=== PATIENT | male | born 1960 | race Caucasian/White ===

== ENCOUNTER 2018-09-23 02:42 | Inpatient (IN) | payer BC, SELFPAY ==
[2018-09-23] VITALS (19 sets, daily range): BP systolic 109–154; BP diastolic 70–94; PULSE 62–86; RESP 16–18; TEMP 36.4–36.6; O2SAT 93–98; BMI 38.8; BMI 37.3
--- NOTE | 2018-09-23 02:46 | ED.RN ---
CALLED FOR EKG PER RN REQUEST, PULLED OLD EKGS FOR
--- NOTE | 2018-09-23 02:59 | RAD_ITS ---
HISTORY: CPChest PainRAD - Chest EXAM:XR Chest 2 Views COMPARISON: 10/06/2014 FINDINGS: EKG leads in place. No significant change. Normal heart size. Prominent lung volumes. No vascular congestion, pleural effusion, or acute pulmonary infiltration. No pneumothorax. RAD/Chest PA and Lateral IMPRESSION: No acute cardiopulmonary disease. No significant interval change. at 0338 Reported and signed by: Hunter Haque MD Electronically Signed: Hunter Haque, at 3:37 EDT Tel , Service support ,
--- NOTE | 2018-09-23 02:59 | EKG12_ITS ---
Test Reason : CHEST PAIN Blood Pressure : / mmHG Vent. Rate : 085 BPM Atrial Rate : 085 BPM P-R Int : 186 ms QRS Dur : 084 ms QT Int : 376 ms P-R-T Axes : 032 062 066 degrees QTc Int : 447 ms Normal sinus rhythm Nonspecific T wave abnormality Abnormal ECG Confirmed by RAJNI LONDON, BOB ([id number]), writer editor STEVEN WORTHINGTON ([id number]) on 09/25/2018 1:41:38 PM Referred By: SELENE Confirmed By:BOB URBAN MD
[2018-09-23 03:08] LABS: Absolute Lymphocyte Count 3.38 X10^3/ul (0.83-4.51); Absolute Neutrophil Count 4.3 X10^3/uL (2.0-7.7); Basophil% 1.1 % (0-1); Eosinophil# 0.32 X10^3/uL; Eosinophils% 3.6 % (0-5); Hematocrit 48.2 % (40-54); Hemoglobin 16.6 g/dl (13.0-16.5); Lymphocyte # 3.38 X10^3/ul (4.0); Lymphocyte % 38.2 % (19-41); Mean Corp Hgb Conc 34.4 g/gl (32-36); Mean Corpuscular Hgb 30.5 pg (27.0-32.0); Mean Corpuscular Volume 88.6 fL (80-94); Mean Platelet Vol. 9.6 fl (6.2-12.0); Monocyte# 0.66 X10^3/uL; Monocyte% 7.5 % (0-10); Neutrophil # 4.33 X10^3/uL (2.7-7.7); POSITIVE COUNT NO; POSITIVE DIFFERENTIAL NO; POSITIVE MORPHOLOGY NO; Platelet Count 242 K/mm3 (150-450); RBC Distribution Width CV 13.9 % (11.6-14.6); RBC Distribution Width SD 45.5 fl (35.1-43.9); Red Blood Count 5.44 M/mm3 (4.6-6.2); White Blood Count 8.8 K/mm3 (4.4-11.0)
[2018-09-23 03:19] LABS: Anion Gap 6 (5-15); BUN 25 mg/dL (7-18); BUN/Creat Ratio 23.8 RATIO (10-20); Calcium,Total 9.7 mg/dL (8.5-10.1); Chloride 102 mmol/L (98-107); Creatinine, Serum 1.05 mg/dL (0.70-1.30); EST Glomerular Filtration Rate 77 mL/min (>60); Est Glom Filt Rate - Afr Amer 93 mL/min (>60); Estimated Creatinine Clearance 76.69 ml/min; Glucose 158 mg/dL (74-106); Potassium 3.7 mmol/L (3.5-5.1); Sodium Level 137 mmol/L (136-145)
--- NOTE | 2018-09-23 03:45 | ED.VISSUMM ---
- ER Visit Summary Date of Service: 09/23/18 Chief Complaint: Chest pain History of Present Illness: The patient is a 58 M who presents with chest pain. He has been having this intermittently over the last 2 to 3 days. Normally it is lasted a few minutes. However tonight it was more severe. He states it was 20 out of 10. He describes it as a tightness. It woke him from sleep about 2 hours before presentation. None of his previous episodes lasted this long. He does complain of associated shortness of breath. No nausea vomiting or diaphoresis. He was given aspirin by EMS however his pain was already beginning to improve. He reported to nursing that his pain was 2 out of 10 and to me reported 1-1/2 out of 10. He otherwise denies recent illness. He denies history of coronary disease and reports a normal cardiac catheterization about 10 years ago. However he is treated for diabetes, hypertension, hyperlipidemia, he is a smoker. Physical Examination: Afebrile vitals unremarkable Moist mucous membranes Heart regular rate and rhythm Lungs are clear Abdomen soft nontender nondistended Extremities nontender without edema 2+ radial pulses Alert Test Results: EKG shows normal sinus rhythm at a rate of 85 with nonspecific T wave changes. There is inferior and lateral T wave flattening. ST segments are isoelectric. Labs notable for troponin of 0.17. Chest x-ray shows no acute disease. Emergency Department Course and Treatment: Patient received aspirin by EMS prior to presentation. His pain had already significantly improved. On reevaluation he states he still has a little tightness but states he does not really have pain. I spoke to Dr. Chairez who requested anticoagulation, Nitropaste, Plavix. They will plan on cardiac catheterization today. Patient discussed with the hospitalist and admitted. Treatment Plan: [] Disposition: Admit Impression: Chest pain Indeterminate troponin This note was generated with [employer] dictation software. It may contain incorrect words, spelling, and punctuation that were not noted in review of the chart prior to signing ED Disposition - Plan for ED Patient: Referrals: Sandhya Priest [Primary Care Provider] -
--- NOTE | 2018-09-23 03:47 | PCM.HP.STD ---
Problem List (1) Chest pain Status: Acute Qualifiers: Chest pain type: unspecified Qualified Code(s): R07.9 - Chest pain, unspecified (2) Cardiac enzymes elevated Status: Acute (3) HTN (hypertension) Status: Chronic Qualifiers: Hypertension type: essential hypertension Qualified Code(s): I10 - Essential (primary) hypertension (4) HLD (hyperlipidemia) Status: Chronic Qualifiers: Hyperlipidemia type: unspecified Qualified Code(s): E78.5 - Hyperlipidemia, unspecified (5) Obesity (BMI 30-39.9) Status: Chronic (6) Diabetes mellitus, type II Status: Chronic Qualifiers: Diabetes mellitus senior living insulin use: unspecified terminal carman insulin use status Diabetes mellitus complication status: with unspecified complications Qualified Code(s): E11.8 - Type 2 diabetes mellitus with unspecified complications (7) History of supraventricular tachycardia Status: Chronic History of Present Illness Date of Admission: 09/23/18 Chief Complaint: Chest pain, dyspnea The patient is a 58 y/o M w/ PMHx: Tobacco use, Obesity, HTN, HLD, Diabetes mellitus type II, Hx SVT following w/ Dr. 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 Work-up in the ED included T 97.6, heart rate 86, BP 154/88, respiratory rate 17, 96% on room air, CBC not marked appearing, BMP with BUN/creatinine 25/1.05, glucose 158, troponin 0.171, EKG with sinus rhythm with nonspecific T wave changes with inferior and lateral T wave flattening, chest x-ray with no acute cardiopulmonary findings. Past Medical History Past Medical History (Chronic Problems): Chronic Problems HTN (hypertension) (Chronic) HLD (hyperlipidemia) (Chronic) Obesity (BMI 30-39.9) (Chronic) Diabetes mellitus, type II (Chronic) History of supraventricular tachycardia (Chronic) Allergies codeine Adverse Reaction (Verified 09/23/18 02:44) Other Home Medications: Ambulatory Orders Medication Instructions Recorded Aspirin 325 mg PO DAILY@0800 10/06/14 Metformin(XR) [Glucophage Xr] 500 mg PO DAILY 09/23/18 Pravastatin Sodium 1 tab PO DAILY 09/23/18 Surgical History: - - Appendectomy, bilateral thumb surgery. Psychiatric History: No pertinent psych hx Lives: Spouse/ Significant Other Smoking Status: Current every day smoker - Currently smoking approximately 1/2 pack/day cigarette tobacco usage. Tobacco Use: Cigarettes Alcohol: Occasional Drugs: None - *Family History Maternal History Items: - - Patient notes a maternal family history of heart disease, status post pacemaker status. Paternal History Items: - - Patient notes a paternal family history of cancer, notes stomach and liver both. Review of Systems Constitutional: Reports: Malaise, Weakness, Fatigue. Denies: Chills, Fever, Weight Change HEENT: Denies: Head Aches, Sinus Congestion, Sinus Drainage Cardiovascular: Reports: Chest Pain, Chest Tightness. Denies: Palpitations Respiratory: Reports: Shortness of Breath, Shortness of breath at rest, Shortness of breath upon exertion. Denies: Cough, Sputum production Gastrointestinal: Denies: Abdominal Pain, Nausea, Vomiting Genitourinary: Denies: Dysuria Musculoskeletal: Reports: Joint Pain. Denies: Joint Tenderness Skin: Denies: Rash, Wounds Neurological: Denies: Numbness, Tingling, Focal weakness Psychiatric: Denies: Anxiety, Depression, Homicidal Ideations, Suicidal Ideations Hematologic/ Lymphatic: Denies: Easy Bruising, Easy Bleeding VTE Information - Inpt Only VTE Present on Admission: No VTE Mechan Device Prophylaxis: SCD's VTE Pharm Prophylaxis ordered?: Yes Patient Problems: Active and Suspected Problems Chest pain (Acute) Cardiac enzymes elevated (Acute) Subjective: Seated upright in ED bed, fatigued appearance, notes chest discomfort has improved, currently less than 1 out of 10. Objective: Physical Examination: General: awake, alert, oriented x 3 and cooperative, seated upright in the ED bed in no apparent distress, notes chest discomfort has improved, currently less than 1 out of 10. Skin: normal color, turgor, no icterus, cyanosis. HEENT: AT/NC, EOMI, PERRLA, mildly dry MM, no carotid bruits or JVD noted. Lungs: CTA bilaterally, moderate effort, moderate decrease BL bases, no rales, ronchi or wheezing. Heart: Regular rate and rhythm; no gallop, rub audible. Abdomen: soft, obese, NTTP, ND, normal BS, no HSM. Extremities: no cyanosis, clubbing, or edema. Neurological: patient awake, alert, oriented x 3; cognitive function intact; pupils equally reactive to light and accomodation; cranial nerves II-XII grossly normal, moving all 4 extremities, no focal deficits, strength moderately globally decreased secondary to acute presentation. Psychiatric: affect appears fatigued, no acute evidence of depressive or anxiety feelings. - Physical Exam Vital Signs Temp Pulse Resp BP Pulse Ox 97.6 F L 76 16 127/84 H 98 09/23/18 02:44 09/23/18 03:43 09/23/18 03:43 09/23/18 03:43 09/23/18 03:43 Oxygen Flow Rate (L/min) 2 Oxygen Delivery Method Nasal Cannula Weight: 263 lb 3.711 oz Body Mass Index (BMI) 38.8 Laboratory Tests Past 24 Hrs 09/23/18 09/23/18 02:47 02:47 WBC 8.8 RBC 5.44 Hgb 16.6 H Hct 48.2 MCV 88.6 MCH 30.5 MCHC 34.4 RDW 13.9 RDW Differential 45.5 H Plt Count 242 MPV 9.6 Immature Gran % (Auto) 0.600 Neut % (Auto) 49.0 Lymph % (Auto) 38.2 Blaine % (Auto) 7.5 Eos % (Auto) 3.6 Baso % (Auto) 1.1 H Absolute Neuts (auto) 4.3 Absolute Lymphs (auto) 3.38 Total Counted Not Reportable Sodium 137 Potassium 3.7 Chloride 102 Carbon Dioxide 29.0 Anion Gap 6 BUN 25 H Creatinine 1.05 Estim Creat Clear Calc 76.69 Est GFR (MDRD) Af Amer 93 Est GFR (MDRD) Non-Af 77 BUN/Creatinine Ratio 23.8 H Glucose 158 H Calcium 9.7 Troponin I 0.171 H Assessment/Plan All Active Problems Chest pain (Acute) Cardiac enzymes elevated (Acute) The patient is a 58 y/o M w/ PMHx: Tobacco use, Obesity, HTN, HLD, Diabetes mellitus type II, Hx SVT following w/ Dr. 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 (1) Chest Pain w/ indeterminate cardiac enzyme, suspect early NSTEMI: Work-up in the ED included T 97.6, heart rate 86, BP 154/88, respiratory rate 17, 96% on room air, CBC not marked appearing, BMP with BUN/creatinine 25/1.05, glucose 158, troponin 0 0.171, EKG with sinus rhythm with nonspecific T wave changes with inferior and lateral T wave flattening, chest x-ray with no acute cardiopulmonary findings. Will admit to PCU, maintain on a monitored bed, continue serial cardiac enzymes and EKGs. Obtain magnesium level upon admission. Start therapeutic lovenox. Plavix loaded in the ED. Continue medical management w/ asa, add BB, continue Cardiology requested nitropaste, change to high dose statin w/ AM FLP. Maintain NPO after midnight for planned AM cardiac catheterization. ASA, NG, morphine. ECHO requested. (2) Hypertension: We will add beta-luci therapy as noted, PRN hydralazine. (3) Hyperlipidemia: Change to high dose statin regimen. AM FLP. (4) Obesity: Weight loss and lifestyle changes encouraged, nutrition consultation for education and teaching. (5) Diabetes mellitus type II: Hold oral home regimen, n.p.o. status pending cardiology evaluation, accu checks w/ ISS, nutrition consultation for education and teaching, HgbA1c pending. (6) Hx SVT: From prior records had been evaluated prior per Dr. Lucas, as noted adding beta-luci therapy. (7) Tobacco Abuse: Encouraged cessation, inpatient consultation per RT, NR declined. (8) ORTIZ: CPAP q HS. (9) DVT prophylaxis: SCDs, therapeutic Lovenox. Code Visit Inpatient E&M: 97213 Init Hosp L3
[2018-09-23] MEDS: Nitroglycerin Oint 1 INCH PACKET TRANSDERM. (04:16)
[2018-09-23] MEDS: Clopidogrel Bisulfate 300 MG Tablet PO (04:16)
[2018-09-23] MEDS: Enoxaparin 120 MG/0.8 ML Syringe SC ×2 (04:17→21:12)
[2018-09-23] MEDS: 0.9% Normal Saline 1,000 ML 125 ML IV ×3 (04:54→17:27)
[2018-09-23 05:13] LABS: International Normalized Ratio 1.1; Prothrombin Time (Protime)PT. 13.9 SECONDS (11.7-14.9)
[2018-09-23 05:14] LABS: Partial Thromboplast Time 34.8 Seconds (24.1-36.2)
[2018-09-23 05:26] LABS: AST(SGOT) 19 U/L (15-37); Alanine Aminotransfer ALT/SGPT 29 U/L (16-61); Albumin, Serum 3.2 g/dL (3.2-5.0); Alkaline Phosphatase 54 U/L (45-117); Bilirubin, Direct < 0.05 mg/dL (0.00-0.30); Cholesterol 152 mg/dL (200); Globulin 3.2 g/dL (2.2-4.2); High Density Lipoprotein 28 mg/dL; Protein, Total 6.4 g/dL (6.4-8.2); Triglycerides 390 mg/dL; Very Low Density Lipoprotein 78 mg/dL (5-40)
[2018-09-23] MEDS: Carvedilol 6.25 MG Tablet PO ×2 (05:34→21:12)
[2018-09-23 05:39] LABS: Bacteria 0 SEEN /hpf (None Seen); Mucous, Urine 0 SEEN /hpf (<or=2+); Red Blood Cells-Urine 0 SEEN /hpf (0-5); Squamous Epithelial Cells - UA 0 SEEN /hpf (0-5); White Blood Cells 0 SEEN /hpf (0-5)
--- NOTE | 2018-09-23 05:55 | ECHOCS_ITS ---
Reason For Study: CAD/ASHD Procedure This was a 2D Doppler, Color Flow transthoracic echocardiogram. The study was technically difficult. Due to obesity and diminished parasternal views. Exam performed portable in patient room. Left Ventricle Normal size and thickness. The estimated ejection fraction is 65 %. Stage 1 diastolic dysfunction. No regional wall motion abnormalities noted. Right Ventricle Mildly dilated right ventricle. Normal systolic function. Atria Normal left atrium. Normal right atrium. Normal atrial septum. Mitral Valve The mitral valve is structurally normal. No prolapse or stenosis seen. Tricuspid Valve Normal tricuspid valve. Trivial tricuspid valve insufficiency. Right ventricular systolic pressure estimated to be 31 mmHg. Aortic Valve Normal aortic valve. Trisinus/trileaflet aortic valve. Pulmonic Valve The pulmonic valve is not well visualized. Great Vessels Normal aortic root. Normal arch. Normal inferior vena cava. Inferior vena cava collapse with sniff. Pericardium/Pleural No pericardial effusion. Medication Diluted definity 3.0ml given slow IV push to enhance endocardial definition. MMode/2D Measurements & Calculations RVDd: 4.1 cm Ao root diam: 3.9 cm LAV(MOD-bp): 57.1 ml LAV(MOD-bp) Indexed: 25.1 ml/m2 LAV(MOD-sp2): 55.7 ml LAV(MOD-sp4): 54.0 ml LA dimension(2D): 4.4 cm LA A4 area: 18.7 cm2 RA A4 area: 17.7 cm2 Doppler Measurements & Calculations MV E max hardik: 73.5 cm/sec Lat Peak E' Hardik: 8.5 cm/sec Med Peak E' Hardik: 5.5 cm/sec MV A max hardik: 85.5 cm/sec E/E' lat: 8.7 E/E' med: 13.4 MV E/A: 0.86 Ao V2 max: 187.3 cm/sec LV V1 max: 157.2 cm/sec PA V2 max: 100.9 cm/sec Ao max P.0 mmHg LV V1 max P.9 mmHg Ao V2 mean: 148.0 cm/sec LV V1 mean P.6 mmHg Ao mean P.2 mmHg LV V1 mean: 123.9 cm/sec Ao V2 VTI: 41.3 cm LV V1 VTI: 33.5 cm TR max hardik: 253.1 cm/sec TR max P.6 mmHg Interpretation Summary The estimated ejection fraction is 65 %. Stage 1 diastolic dysfunction. Mildly dilated right ventricle. Trivial tricuspid valve insufficiency. Right ventricular systolic pressure estimated to be 31 mmHg. Compared to echo report 10/15/2014, no appreciable changes noted. The study was technically difficult. Contrast injection was performed. Ordering Physician: Gianna Wisdom Referring Physician: Sandhya Priest Performed By: Isabel Diaz RDCS, RVT
--- NOTE | 2018-09-23 05:55 | EKG12_ITS ---
Test Reason : CP / AM EKG Blood Pressure : / mmHG Vent. Rate : 075 BPM Atrial Rate : 075 BPM P-R Int : 180 ms QRS Dur : 084 ms QT Int : 390 ms P-R-T Axes : 017 052 055 degrees QTc Int : 435 ms Normal sinus rhythm Normal ECG Confirmed by RAJNI LONDON, BOB ([id number]), research editor STEVEN WORTHINGTON ([id number]) on 09/25/2018 1:55:20 PM Referred By: MITRA Confirmed By:BOB URBAN MD
[2018-09-23 06:04] LABS: Color, Urine Yellow (Yellow); Glucose, Dipstick Normal (Normal); Ketone-Dipstick Negative (Negative); Leukocyte Esterase-Dipstick 25 /ul (Negative); Nitrite-Dipstick Negative (Negative); Occult Blood-Urine Negative /ul (Negative); Protein-Dipstick 15 mg/dl (Negative); Specific Gravity, Urine 1.025 (1.002-1.030); Urine Bilirubin Dipstick Negative (Negative); Urine Clarity Clear (Clear); Urine Urobilinogen Normal (Normal)
[2018-09-23 07:11] LABS: Bedside Glucose 148 mg/dL (70-110)
[2018-09-23 08:18] LABS: Hemoglobin A1c 6.8 % (4.2-6.3)
--- NOTE | 2018-09-23 08:46 | CASEMGMT ---
According to the [facility] website, the following are in-network tertiary facilities: [facility], [facility], [facility], [facility], [facility], [facility], [facility], [facility], [facility], and . Jeanie CEDILLO CM
[2018-09-23] MEDS: Acetaminophen 325 MG Tablet 650 MG PO ×2 (10:15→16:20)
--- NOTE | 2018-09-23 10:49 | PCM.CONS.C ---
Problem List (1) Chest pain Status: Acute Qualifiers: Chest pain type: unspecified Qualified Code(s): R07.9 - Chest pain, unspecified (2) Cardiac enzymes elevated Status: Acute (3) HTN (hypertension) Status: Chronic Qualifiers: Hypertension type: essential hypertension Qualified Code(s): I10 - Essential (primary) hypertension (4) HLD (hyperlipidemia) Status: Chronic Qualifiers: Hyperlipidemia type: unspecified Qualified Code(s): E78.5 - Hyperlipidemia, unspecified (5) Diabetes mellitus, type II Status: Chronic Qualifiers: Diabetes mellitus mcc insulin use: unspecified manager intermediate insulin use status Diabetes mellitus complication status: with unspecified complications Qualified Code(s): E11.8 - Type 2 diabetes mellitus with unspecified complications Reason for Consult Date of Consultation: 09/23/18 Reason for Consultation: Hypertension, hypercholesterolemia, diabetes, current smoker, obstructive sleep apnea, non-STEMI, unstable angina History of Present Illness: The patient is a 58 year old M with a history of hypertension, hypercholesterolemia, diabetes type 2 for the past year, current smoker of a half a pack of cigarettes per day for approximately 30 years, apparently history of atrial fibrillation in the distant past although is on no anticoagulation, structured sleep apnea on current CPAP therapy. He reports he had a heart cath greater than 10 years ago at [facility] which was reportedly normal per the patient. Patient was well up until the last week or so when he began developing intermittent chest heaviness which he rated a 2-3 out of 10 while he was exerting himself. Last evening after going to sleep, he developed severe 10 out of 10 chest tightness which woke him up from a sleeping position around 1 AM. This was similar to but more intense than his symptoms that he has been experiencing over the last 1 to 2 weeks. He had no nausea or vomiting but was diaphoretic and had shortness of breath. The patient was emergently transferred to [facility] by [facility] where an EKG showed normal sinus rhythm with subtle inferior ST segment flattening. The patient was treated with baby aspirin, sublingual nitroglycerin, IV heparin, and loaded with Plavix. His initial troponin was 0.17, and increased to 3.86. He is currently resting comfortably. Telemetry is been negative thus far according to this writing. [] Past Medical History Allergies/Adverse Reactions: Allergies codeine Adverse Reaction (Verified 09/23/18 02:44) Other Home Medications: Ambulatory Orders Medication Instructions Recorded Aspirin 325 mg PO DAILY@0800 10/06/14 Metformin(XR) [Glucophage Xr] 500 mg PO DAILY 09/23/18 Pravastatin Sodium 1 tab PO DAILY 09/23/18 Past Medical History (Chronic Problems): Chronic Problems HTN (hypertension) (Chronic) HLD (hyperlipidemia) (Chronic) Obesity (BMI 30-39.9) (Chronic) Diabetes mellitus, type II (Chronic) History of supraventricular tachycardia (Chronic) Surgical History: - - Appendectomy, bilateral thumb surgery. Psychiatric History: No pertinent psych hx - *Family History Maternal History Items: - - Patient notes a maternal family history of heart disease, status post pacemaker status. Paternal History Items: - - Patient notes a paternal family history of cancer, notes stomach and liver both. Lives: Spouse/ Significant Other Smoking Status: Current every day smoker Tobacco Use: Cigarettes Alcohol: Occasional Drugs: None Review of Systems - Review of Systems General: Denies: Fever, Night Sweats, Fatigue Cardiovascular: Reports: Chest Discomfort, Chest Discomfort at Rest, Chest Discomfort with Exertion, Chest Heaviness, Shortness of Breath, Shortness of Breath at Rest. Denies: Orthopnea, PND, Peripheral Edema, Palpitations, Lightheadedness, Dizziness, Near Syncope, Syncope Respiratory: Denies: Cough, Sputum Production, Hemoptysis Gastrointestinal: Denies: Hematemesis, Hematochezia, Melena Genitourinary: Denies: Dysuria, Hematuria Skin: Denies: Rash Subjectve: Patient resting comfortably, no acute distress. Objective: Vital Signs Temp Pulse Resp BP Pulse Ox 97.7 F L 77 18 124/73 H 94 09/23/18 10:40 09/23/18 10:40 09/23/18 10:40 09/23/18 10:40 09/23/18 10:40 Oxygen Flow Rate (L/min) 2 Oxygen Delivery Method Room Air Weight: 252 lb 10.396 oz Body Mass Index (BMI) 37.3 Intake and Output for Last 24 Hours 09/21/18 09/22/18 09/23/18 23:59 23:59 23:59 Intake Total 50 / 50 Balance 50 / 50 General: Awake, Alert, Oriented x 3 HEENT: PERRL, EOMI, Sclera Non Icteric Neck: Supple, Good ROM, No Lymph Node Enlargement Lungs: Clear to auscultation Cardiovascular: Regular Rhythm, Normal S1, Normal S2, No Murmurs, No Rubs, No Gallops Vascular: No Carotid Bruits, Normal Femoral Pulses, Normal Radial Pulses, Normal Dorsalis Pedal Pulse, Normal Posterior Tibial Pulses Abdomen: Bowel Sounds Present, Soft, Non Tender, No HSM, No Organomegaly Extremities: No Cyanosis, No Clubbing, No edema Neurological: No Focal Motor or Sensory Deficit 09/23/18 02:47: WBC 8.8, RBC 5.44, Hgb 16.6 H, Hct 48.2, MCV 88.6, MCH 30.5, MCHC 34.4, RDW 13.9, RDW Differential 45.5 H, Plt Count 242, MPV 9.6, Immature Gran % (Auto) 0.600, Neut % (Auto) 49.0, Lymph % (Auto) 38.2, [place] % (Auto) 7.5, Eos % (Auto) 3.6, Baso % (Auto) 1.1 H, Absolute Neuts (auto) 4.3, Total Counted Not Reportable 09/23/18 02:47: Sodium 137, Potassium 3.7, Chloride 102, Carbon Dioxide 29.0, Anion Gap 6, BUN 25 H, Creatinine 1.05, Est GFR (MDRD) Af Amer 93, Est GFR (MDRD) Non-Af 77, BUN/Creatinine Ratio 23.8 H, Glucose 158 H, Calcium 9.7, Troponin I 0.171 H 09/23/18 04:55: PT 13.9, INR 1.1, APTT 34.8 09/23/18 04:55: Sodium Cancelled, Potassium Cancelled, Chloride Cancelled, Carbon Dioxide Cancelled, Anion Gap Cancelled, BUN Cancelled, Creatinine Cancelled, Est GFR (MDRD) Af Amer Cancelled, Est GFR (MDRD) Non-Af Cancelled, BUN/Creatinine Ratio Cancelled, Glucose Cancelled, Calcium Cancelled, Magnesium 2.0, Total Bilirubin 0.10 L, Direct Bilirubin < 0.05, Triglycerides 390 H, Cholesterol 152, LDL Cholesterol 46, VLDL Cholesterol 78 H, HDL Cholesterol 28 L 09/23/18 04:55: Hemoglobin A1c 6.8 H 05/13/19 04:55: Troponin I 0.623 H* 09/23/18 05:22: Urine Color Yellow, Urine Clarity Clear, Urine pH 6.0, Ur Specific [place] 1.025, Urine Protein 15 H, Urine Glucose (UA) Normal, Urine Ketones Negative, Urine Occult Blood Negative, Urine Nitrite Negative, Urine Bilirubin Negative, Urine Urobilinogen Normal, Ur Leukocyte Esterase 25 H, Urine RBC 0 SEEN, Urine WBC 0 SEEN 09/23/18 08:20: Troponin I 3.860 H* Rhythm: EKG: As above ECHO: Pending Stress Test: Cardiac Cath: Pending PCI: CT Surgery: Holter monitor: EPS: PPM: CXR: Chest CT Scan: Assessment/Plan 1. Chest pain: The patient has had about a 1 to 2-week history of progressively worsening substernal chest pain, culminating in severe chest pain that woke him up from a sound sleep at 1 AM despite using CPAP therapy religiously. He had a very minimal troponin release that is max so far at 3.8. His EKG showed normal sinus rhythm with very subtle inferior ST segment flattening, no appreciable exchange clerk previous EKGs. He is currently chest pain-free. I recommend he continue baby aspirin, Plavix 75 mg a day, nitroglycerin paste 1 inch every 6 hours, and anticoagulation with either Lovenox or IV heparin. I recommended the patient undergo a diagnostic left heart catheterization tomorrow morning, 09/24/2018, or sooner if he develops unstable symptoms. I do not believe requires to be 3 inhibitors at this time. 2. Hyperlipidemia: Recommend obtaining a fasting lipid profile. His LDL should be less than 70 given his diabetes and non-STEMI. 3. 2D echo with Doppler is pending. 4. Obstructive sleep apnea: Continue CPAP therapy while he is in-house to avoid hypoxemic episodes during his sleep. 5. Thank you very much for the opportunity to put dissipate in the cardiac care of your patient. Consultation time took place between 8 AM and 8:30 AM. Code Visit Inpatient E&M: 36088 Init Hosp L2
--- NOTE | 2018-09-23 10:54 | CON.PCM_ITS ---
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 Diabetes mellitus complication status: with unspecified complications Qualified Code(s): E11.8 - Type 2 diabetes mellitus with unspecified complications Reason for Consult Date of Consultation: 09/23/18 Reason for Consultation: Hypertension, hypercholesterolemia, diabetes, current smoker, obstructive sleep apnea, non-STEMI, unstable angina History of Present Illness: The patient is a 58 year old M with a history of hypertension, hypercholesterolemia, diabetes type 2 for the past year, current smoker of a half a pack of cigarettes per day for approximately 30 years, apparently history of atrial fibrillation in the distant past although is on no anticoagulation, structured sleep apnea on current CPAP therapy. He reports he had a heart cath greater than 10 years ago at [facility] which was reportedly normal per the patient. Patient was well up until the last week or so when he began developing intermittent chest heaviness which he rated a 2-3 out of 10 while he was exerting himself. Last evening after going to sleep, he developed severe 10 out of 10 chest tightness which woke him up from a sleeping position around 1 AM. This was similar to but more intense than his symptoms that he has been experiencing over the last 1 to 2 weeks. He had no nausea or vomiting but was diaphoretic and had shortness of breath. The patient was emergently transferred to [facility] by [facility] where an EKG showed normal sinus rhythm with subtle inferior ST segment flattening. The patient was treated with baby aspirin, sublingual nitroglycerin, IV heparin, and loaded with Plavix. His initial troponin was 0.17, and increased to 3.86. He is currently resting comfortably. Telemetry is been negative thus far according to this writing. [] Past Medical History Allergies/Adverse Reactions: Allergies codeine Adverse Reaction (Verified 09/23/18 02:44) Other Home Medications: Ambulatory Orders Medication Instructions Recorded Aspirin 325 mg PO DAILY@0800 10/06/14 Metformin(XR) [Glucophage Xr] 500 mg PO DAILY 09/23/18 Pravastatin Sodium 1 tab PO DAILY 09/23/18 Past Medical History (Chronic Problems): Chronic Problems HTN (hypertension) (Chronic) HLD (hyperlipidemia) (Chronic) Obesity (BMI 30-39.9) (Chronic) Diabetes mellitus, type II (Chronic) History of supraventricular tachycardia (Chronic) Surgical History: - - Appendectomy, bilateral thumb surgery. Psychiatric History: No pertinent psych hx - *Family History Maternal History Items: - - Patient notes a maternal family history of heart disease, status post pacemaker status. Paternal History Items: - - Patient notes a paternal family history of cancer, notes stomach and liver both. Lives: Spouse/ Significant Other Smoking Status: Current every day smoker Tobacco Use: Cigarettes Alcohol: Occasional Drugs: None Review of Systems - Review of Systems General: Denies: Fever, Night Sweats, Fatigue Cardiovascular: Reports: Chest Discomfort, Chest Discomfort at Rest, Chest Discomfort with Exertion, Chest Heaviness, Shortness of Breath, Shortness of Breath at Rest. Denies: Orthopnea, PND, Peripheral Edema, Palpitations, Lightheadedness, Dizziness, Near Syncope, Syncope Respiratory: Denies: Cough, Sputum Production, Hemoptysis Gastrointestinal: Denies: Hematemesis, Hematochezia, Melena Genitourinary: Denies: Dysuria, Hematuria Skin: Denies: Rash Subjectve: Patient resting comfortably, no acute distress. Objective: Vital Signs Temp Pulse Resp BP Pulse Ox 97.7 F L 77 18 124/73 H 94 09/23/18 10:40 09/23/18 10:40 09/23/18 10:40 09/23/18 10:40 09/23/18 10:40 Oxygen Flow Rate (L/min) 2 Oxygen Delivery Method Room Air Weight: 252 lb 10.396 oz Body Mass Index (BMI) 37.3 Intake and Output for Last 24 Hours 09/21/18 09/22/18 09/23/18 23:59 23:59 23:59 Intake Total 50 / 50 Balance 50 / 50 General: Awake, Alert, Oriented x 3 HEENT: PERRL, EOMI, Sclera Non Icteric Neck: Supple, Good ROM, No Lymph Node Enlargement Lungs: Clear to auscultation Cardiovascular: Regular Rhythm, Normal S1, Normal S2, No Murmurs, No Rubs, No Gallops Vascular: No Carotid Bruits, Normal Femoral Pulses, Normal Radial Pulses, Normal Dorsalis Pedal Pulse, Normal Posterior Tibial Pulses Abdomen: Bowel Sounds Present, Soft, Non Tender, No HSM, No Organomegaly Extremities: No Cyanosis, No Clubbing, No edema Neurological: No Focal Motor or Sensory Deficit 09/23/18 02:47: WBC 8.8, RBC 5.44, Hgb 16.6 H, Hct 48.2, MCV 88.6, MCH 30.5, MCH C 34.4, RDW 13.9, RDW Differential 45.5 H, Plt Count 242, MPV 9.6, Immature Gran % (Auto) 0.600, Neut % (Auto) 49.0, Lymph % (Auto) 38.2, Caswell % (Auto) 7.5, Eos % (Auto) 3.6, Baso % (Auto) 1.1 H, Absolute Neuts (auto) 4.3, Total Counted Not Reportable 09/23/18 02:47: Sodium 137, Potassium 3.7, Chloride 102, Carbon Dioxide 29.0, Anion Gap 6, BUN 25 H, Creatinine 1.05, Est GFR (MDRD) Af Amer 93, Est GFR (MDRD) Non-Af 77, BUN/Creatinine Ratio 23.8 H, Glucose 158 H, Calcium 9.7, Troponin I 0.171 H 09/23/18 04:55: PT 13.9, INR 1.1, APTT 34.8 09/23/18 04:55: Sodium Cancelled, Potassium Cancelled, Chloride Cancelled, Carbon Dioxide Cancelled, Anion Gap Cancelled, BUN Cancelled, Creatinine Cancelled, Est GFR (MDRD) Af Amer Cancelled, Est GFR (MDRD) Non-Af Cancelled, BUN/Creatinine Ratio Cancelled, Glucose Cancelled, Calcium Cancelled, Magnesium 2.0, Total Bilirubin 0.10 L, Direct Bilirubin < 0.05, Triglycerides 390 H, Cholesterol 152, LDL Cholesterol 46, VLDL Cholesterol 78 H, HDL Cholesterol 28 L 09/23/18 04:55: Hemoglobin A1c 6.8 H 05/13/19 04:55: Troponin I 0.623 H* 09/23/18 05:22: Urine Color Yellow, Urine Clarity Clear, Urine pH 6.0, Ur Specific Cash 1.025, Urine Protein 15 H, Urine Glucose (UA) Normal, Urine Ketones Negative, Urine Occult Blood Negative, Urine Nitrite Negative, Urine Bilirubin Negative, Urine Urobilinogen Normal, Ur Leukocyte Esterase 25 H, Urine RBC 0 SEEN, Urine WBC 0 SEEN 09/23/18 08:20: Troponin I 3.860 H* Rhythm: EKG: As above ECHO: Pending Stress Test: Cardiac Cath: Pending PCI: CT Surgery: Holter monitor: EPS: PPM: CXR: Chest CT Scan: Assessment/Plan 1. Chest pain: The patient has had about a 1 to 2-week history of progressively worsening substernal chest pain, culminating in severe chest pain that woke him up from a sound sleep at 1 AM despite using CPAP therapy religiously. He had a very minimal troponin release that is max so far at 3.8. His EKG showed normal sinus rhythm with very subtle inferior ST segment flattening, no appreciable changer fixer previous EKGs. He is currently chest pain-free. I recommend he continue baby aspirin, Plavix 75 mg a day, nitroglycerin paste 1 inch every 6 hours, and anticoagulation with either Lovenox or IV heparin. I recommended the patient undergo a diagnostic left heart catheterization tomorrow morning, 09/24/2018, or sooner if he develops unstable symptoms. I do not believe requires to be 3 inhibitors at this time. 2. Hyperlipidemia: Recommend obtaining a fasting lipid profile. His LDL should be less than 70 given his diabetes and non-STEMI. 3. 2D echo with Doppler is pending. 4. Obstructive sleep apnea: Continue CPAP therapy while he is in-house to avoid hypoxemic episodes during his sleep. 5. Thank you very much for the opportunity to put dissipate in the cardiac care of your patient. Consultation time took place between 8 AM and 8:30 AM. Code Visit Inpatient E&M: 50098 Init Hosp L2
--- NOTE | 2018-09-23 11:09 | CASEMGMT ---
NGUYEN MOORE assessment: Face to Face with patient for initial transition planning/care coordination assessment. NGUYEN MOORE introduced self and role at [facility], pt voices understanding and consents to assessment at this time. Pt is sitting up in bed in no distress at this time. Pt is A/Ox4 at this time and answers all questions appropriately at this time. Care providers, pharmacy, and demographics verified at this time. PCP: Cem Specialists: Shayy cardio Preferred [facility]acy: [facility] Insurance: [employer] Prescription Benefit: [employer] Living Will/HPOA: Pt states does not have LW/HPOA but is interested in info at this time. Sandra SW aware, voices understanding and provided AD papers to pt. LNOK: Steph Cantrell, ; Aleksandar Dorsey, son Living Arrangements: Pt states lives with in mobile home with ramp into back of home and states no concerns at home at this time. Pt states is independent with ADL's. Transportation: Pt states drives self and states no transportation concerns at this time. DME/HHC: Pt states has a cpap with 2 liters home oxygen bleed in thru [facility]. Pt states no need for any further DME at this time. Pt states no hx of HHC or SNF in the past. Pt states no concerns with going home at time of discharge. 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 Pt states smokes about 1/2-3/4pack/day and drinks ETOH 2-3times daily. Pt states no further concerns/needs at this time. CM to follow for any further discharge planning/needs. Advised pt to ask for CM if any further questions/concerns/needs arise, voices understanding. Pt Goal: Home Plan: [place] NGUYEN MOORE
[2018-09-23] MEDS: Nitroglycerin Oint 1 INCH PACKET 0.5 INCH TRANSDERM. ×3 (11:43→23:58)
[2018-09-23 12:01] LABS: Bedside Glucose 147 mg/dL (70-110)
--- NOTE | 2018-09-23 15:00 | CASEMGMT ---
SW gave patient and his copies of Healthcare POA and Healthcare LW per their request. SW also gave them the Social Service brochure letting them know they can make an appt and a SW would complete documents with them. They thanked SW and did not need an explanation of documents. Qiana HOSKINS MSW
[2018-09-23 16:55] LABS: Bedside Glucose 103 mg/dL (70-110)
--- NOTE | 2018-09-23 18:10 | PCM.HOSP.N ---
Hospitalist Note Patient was seen and examined briefly today, he has very mild chest pain, I talked with cardiology about his care, cardiology states that they will perform a cardiac catheterization tomorrow rather than today. Patient's peak troponin today was 3.86. It appears that the patient's definitely had a NSTEMI. For now, we will continue his current medical care and plan for cardiac catheterization tomorrow.
[2018-09-23] MEDS: Atorvastatin Calcium 80 MG Tablet PO (21:12)
[2018-09-23 22:10] LABS: Bedside Glucose 99 mg/dL (70-110)
[2018-09-24] VITALS (28 sets, daily range): BP systolic 99–152; BP diastolic 50–102; PULSE 59–85; RESP 12–23; TEMP 36.3–36.7; O2SAT 93–98
[2018-09-24] MEDS: 0.9% Normal Saline 1,000 ML 125 ML IV (00:06)
--- NOTE | 2018-09-24 05:12 | CPS ---
pt didn't want to wear our cpap or bring his in from home.
[2018-09-24 05:31] LABS: Absolute Lymphocyte Count 2.91 X10^3/ul (0.83-4.51); Absolute Neutrophil Count 4.2 X10^3/uL (2.0-7.7); Basophil# 0.09 X10^3/uL; Basophil% 1.2 % (0-1); Eosinophil# 0.23 X10^3/uL; Eosinophils% 2.9 % (0-5); Hematocrit 44.5 % (40-54); Hemoglobin 14.8 g/dl (13.0-16.5); Lymphocyte # 2.91 X10^3/ul (4.0); Lymphocyte % 37.2 % (19-41); Mean Corp Hgb Conc 33.3 g/gl (32-36); Mean Corpuscular Hgb 30.6 pg (27.0-32.0); Mean Corpuscular Volume 92.1 fL (80-94); Mean Platelet Vol. 9.5 fl (6.2-12.0); Monocyte# 0.41 X10^3/uL; Monocyte% 5.2 % (0-10); Neutrophil # 4.15 X10^3/uL (2.7-7.7); Neutrophil % 53.1 % (47-70); Platelet Count 215 K/mm3 (150-450); RBC Distribution Width SD 46.8 fl (35.1-43.9); Red Blood Count 4.83 M/mm3 (4.6-6.2); White Blood Count 7.8 K/mm3 (4.4-11.0)
[2018-09-24] MEDS: Aspirin 325 MG Tablet PO (05:36)
[2018-09-24] MEDS: Carvedilol 6.25 MG Tablet PO ×2 (05:36→21:46)
[2018-09-24] MEDS: Nitroglycerin Oint 1 INCH PACKET 0.5 INCH TRANSDERM. (05:36)
[2018-09-24 05:37] LABS: POSITIVE COUNT NO; POSITIVE DIFFERENTIAL NO; POSITIVE MORPHOLOGY NO
[2018-09-24 05:38] LABS: International Normalized Ratio 1.1; Prothrombin Time (Protime)PT. 13.8 SECONDS (11.7-14.9)
[2018-09-24 05:45] LABS: Anion Gap 4 (5-15); BUN 17 mg/dL (7-18); BUN/Creat Ratio 18.6 RATIO (10-20); Calcium,Total 8.3 mg/dL (8.5-10.1); Chloride 109 mmol/L (98-107); Creatinine, Serum 0.92 mg/dL (0.70-1.30); EST Glomerular Filtration Rate 90 mL/min (>60); Est Glom Filt Rate - Afr Amer 109 mL/min (>60); Estimated Creatinine Clearance 87.52 ml/min; Glucose 115 mg/dL (74-106); Potassium 4.2 mmol/L (3.5-5.1); Sodium Level 142 mmol/L (136-145)
--- NOTE | 2018-09-24 05:55 | EKG12_ITS ---
Test Reason : AM EKG Blood Pressure : / mmHG Vent. Rate : 069 BPM Atrial Rate : 069 BPM P-R Int : 210 ms QRS Dur : 082 ms QT Int : 414 ms P-R-T Axes : 030 051 071 degrees QTc Int : 443 ms Sinus rhythm with 1st degree A-V block Nonspecific T wave abnormality Abnormal ECG Confirmed by RAJNI LONDON, BOB ([id number]), editorial writer STEVEN WORTHINGTON ([id number]) on 09/25/2018 1:53:32 PM Referred By: DR RICH Confirmed By:BOB URBAN MD
[2018-09-24 06:51] LABS: Bedside Glucose 130 mg/dL (70-110)
[2018-09-24] MEDS: DiphenhydrAMINE 25 MG Capsule 50 MG PO (07:02)
[2018-09-24 08:45] LABS: ACT Activated Clotting Time 186 sec (74-137)
--- NOTE | 2018-09-24 08:47 | CL.I_ITS ---
Patient Name: BRAVO FREEDMAN Study Date: 09/24/2018 Performing: Martínez Chairez MD Ht: 68.9 inches 175 cm : 1960 Wt: 253.53 lbs 115 kg Age: 58 Gender: male BSA: 2.28 Amended PROCEDURE(S) PERFORMED UE89-DGF/COR/LV AP97-BFR W OR WO PTCA, SINGLE CORONARY ARTERY [id number], EACH ADD'L CORONARY ART, SAME MAJOR CLINICAL PROFILE AND CO-MORBIDITIES Patient presents with NSTEMI for urgent cardiac cath Indications: ACS > 24 hrs, New Onset Angina <= 2 months, Suspected CAD Heart Failure: None Stress/Imaging Stress/Image Study Performed: No Angina Classification Anginal Classification w/in 2 Weeks: CCS III CAD Presentations: Unstable angina. Non-STEMI. Symptom onset Date/Time: 09/23/2018 03:00:00 Time Estimated Comorbidities/Risk Factors: Current/Recent Smoker (< 1year) Hypertension Dyslipidemia Diabetes Mellitus: Diabetes Therapy: Insulin CONCLUSIONS Single vessel CAD of the mid LCX Normal Left Ventricular systolic function LVEF: by LV gram 65 % Elevated Left Ventricular End Diastolic Pressure Non obstructive coronary arteries Successful PTCA/EAGLE mid LCX with a 3.0 x 20 Promus Synergy, post dilated with a 3.0 x 8 NC distally, and a 3.5 x 8 NC balloon in proximal 2/3; 85%-->0%, no dissection. Successful PCI with PTCA to the ostium of OM#2 with a 2.0 x 12 balloon; 50%-->30%, no dissection. RECOMMENDATIONS Referred for immediate PCI Highly recommend quitting all tobacco products Follow up with primary public area attendant Risk factor modification ASA Indefinitley Plavix for at least 12 months Routine post interventional care Refer for Outpatient Cardiac Rehab Manual sheath removal per protocol Follow up with Dr. Chairez Medical management of LAD and RCA. Successful Mynx closure of RFA. DESCRIPTION OF PROCEDURE The patient arrived to the procedure lab. The risks and benefits of the procedure as well as a full d escription of our services here and lack of surgical backup were fully explained to the patient and/o r their significant other prior to the catheterization. The Timeout was completed, verifying the samanta ect patient and procedure. The patient's procedural site was prepped and draped in the usual fashion. Local anesthetic was given subcutaneously to right groin region with Lidocaine 2%. Using a modified Seldinger technique, arterial access was obtained via the right femoral artery, a 4Fr sheath was inse rted. Left Coronary Artery selective angiography was performed in multiple views using a 4 Fr. JL5 c atheter. Right Coronary Artery selective angiography was then performed in multiple views using a 4 F r. 3DRC catheter. Left Ventriculography was performed in HAY projection using a 4 Fr. Pigtail cathete r. LV to AO pullback pressures were then recordedThe images were reviewed and options discussed. A decision was then made to proceed with an Intervention, IVUS or other adjunct procedure. Arterial sheath was exchanged for a 6 Fr Sheath. EBU 3.75 Guide catheter was inserted and engaged into the LCA. BMW Rienzi Guide wire was advanced to the Circumflex. Emerge 2.0 x [address] was inserted. Balloon catheter was advanced across lesion in the circumflex, mid. PTCA balloon in flated at 8 atms for 10 secs. PTCA balloon inflated at 10 atms for 15 secs. PTCA balloon inflated at 8 atms for 14 secs. Angiogram performed post balloon dilatation. BMW Rienzi (2) Guide wire was adv anced to the 2nd OM. Emerge 2.0 x 12 Balloon catheter was reinserted Balloon catheter was advanced ac ross lesion in the second obtuse marginal, ostial PTCA balloon inflated at 6 atms for 20 secs. Emerge 2.5 x 12 Balloon catheter was inserted. Balloon catheter was advanced across lesion in the circumfle x, mid. PTCA balloon inflated at 6 atms for 10 secs. PTCA balloon inflated at 6 atms for 8 secs. Li ogram performed post balloon dilatation. Synergy 3.0 x 20 Drug Eluting stent was inserted. Drug Eluting stent was advanced across the lesion in the circumflex, mid. Angiogram performed pre aliyah nt deployment. Angiogram performed post stent deployment. NC 3.5 x 8 Balloon catheter was inserted. N C 3.0 x 8 Balloon catheter was inserted. Balloon catheter was advanced across lesion in the circumfle x, mid. NC Emerge 3.5 x 8 Balloon catheter was inserted. Balloon catheter was advanced across lesion in the circumflex, mid. BMW Rienzi (2) Guide wire was repositioned to the Circumflex NC Emerge 3.5 x 8 Balloon catheter was reinserted Drug Eluting stent was advanced across the lesion in the circumf trey, mid. Angiogram performed pre balloon dilatation. Angiogram performed post balloon dilatation. An giogram performed post balloon dilatation. Contrast was injected through the sheath and the Right Jenifer ac and Femoral artery were assessed for possible closure device. The arterial sheath was pulled and a Mynx closure device was deployed for hemostasis CORONARY ANGIOGRAPHY DOMINANCE: Right Dominant LEFT HEART ASSESSMENT Left Ventricular Ejection Fraction: by LV Gram 65 % Normal Left Ventricular systolic function LVEDP: 24 mmHg Elevated Left Ventricular End Diastolic Pressure Normal LV wall motion LEFT MAIN: Angiographically normal LEFT ANTERIOR DESCENDING ARTERY: PROX LAD: Mild luminal irregularities less than 30% CIRCUMFLEX ARTERY: MID CIRC: 85 % Stenosis OM 2: Ostial - Moderate luminal irregularities up to 50% RIGHT CORONARY ARTERY: PROX RCA: Mild luminal irregularities less than 30% MID RCA: Moderate luminal irregularities up to 50% DISTAL RCA: Mild luminal irregularities less than 30% INTERVENTION INFORMATION LESION SITE: Circumflex (Mid) Lesion Complexity: High/C, lesion at bifurcation: Yes, thrombus present: No, lesion length: 20 mm, cu lprit lesion: Yes Pre Stenosis: 85 % Pre intervention CANDICE flow: 3 PROCEDURE: Drug Eluting Stent with pre and post dilatation Post Stenosis: 0 % Post intervention CANDICE flow: 3 Lesion Devices: Medtronic 6 Fr EBU3.75 100cm Guide Catheter Vogt .014 BMW Rienzi Straight 190cm Tej Sci EMERGE MR 2.00x12 BALLOON Vogt .014 BMW Rienzi Straight 190cm Tej Sci EMERGE MR 2.50x12 BALLOON Tej Sci NC EMERGE MR 3.50x08 BALLOON Tej Sci NC EMERGE MR 3.00x08 BALLOON Tej Sci Synergy MR EAGLE 3.00x20 LESION SITE: 2nd OM (Ostial) Lesion Complexity: High/C, lesion at bifurcation: Yes, thrombus present: No, lesion length: 8 mm, cul prit lesion: No Pre Stenosis: 50 % Pre intervention CANDICE flow: 3 PROCEDURE: Balloon Angioplasty Post Stenosis: 30 % Post intervention CANDICE flow: 3 Lesion Devices: Medtronic 6 Fr EBU3.75 100cm Guide Catheter Vogt .014 BMW Rienzi Straight 190cm Tej Sci EMERGE MR 2.00x12 BALLOON Vogt .014 BMW Rienzi Straight 190cm Tej Sci EMERGE MR 2.50x12 BALLOON Tej Sci NC EMERGE MR 3.50x08 BALLOON COMPLICATIONS No Complications PROCEDURE MEDICATIONS Fentanyl 25 mcg IV Oxygen: 2 L/min via nasal cannula Heparin 6000 unit(s) IV 09/24/2018 07:51:50 Nitro 200 mcg IC 09/24/2018 07:53:15 Nitro 200 mcg IC 09/24/2018 07:53:15 Nitro 200 mcg IC 09/24/2018 08:00:13 Nitro 200 mcg IC 09/24/2018 08:06:14 IV Bolus: .9 NaCl 800 ml total 09/24/2018 08:39:56 IV Fluids: .9 NaCl decreased to 150 ml/hr 09/24/2018 08:40:02 SUMMARY OF HEMODYNAMIC DATA Time AIR REST ECG 07:26:09 AO 135/85 (107) SA 07:44:27 LV 142/-4, 22 07:50:08 LV 134/-5, 24 07:50:14 LVp 131/-5, 26 07:50:20 AOp 120/72 (93) 07:50:25 Signed By Martínez Chairez MD On 09/24/2018 15:34:19 Martínez Chairez MD
--- NOTE | 2018-09-24 08:47 | EKG12_ITS ---
Test Reason : PCI Blood Pressure : / mmHG Vent. Rate : 062 BPM Atrial Rate : 062 BPM P-R Int : 204 ms QRS Dur : 082 ms QT Int : 426 ms P-R-T Axes : 038 048 041 degrees QTc Int : 432 ms Normal sinus rhythm Normal ECG When compared with ECG of 24-SEP-2018 03:26, MANUAL COMPARISON REQUIRED, DATA IS UNCONFIRMED Confirmed by PATRICE ESPINAL ([id number]), fashion editor FOREST RESENDEZ ([id number]) on 09/30/2018 4:56:49 PM Referred By: LIBBY Confirmed By:AMANDA ESPINAL
[2018-09-24] MEDS: 0.9% Normal Saline 1,000 ML 150 ML IV (09:35)
--- NOTE | 2018-09-24 10:16 | CRPHASE1 ---
Patient Communication PHII Cardiac Rehab Discussed with Patient:: Yes Guide to Cardiac Rehab Given to Patient:: Yes Cardiac Rehab Facility Choice List Given to Patient:: Yes - WOULD LIKE TO ATTEND AT [facility] Other:: Communication Given to CR, With permission faxed order and referral information Wireless Manager:: Martínez Chairez Refer Phase II Cardiac Rehab:: Yes Sessions:: 36 sessions - 3 days/wk, 12 weeks Risk Factors/Lifestyle Smoking Status: Current every day smoker Hx Hypertension: No Hx Diabetes Mellitus Type 1: No Hx Diabetes Mellitus Type 2: No Hx Metabolic Disorders: Yes Hx Dyslipidemia: Yes Hx Obesity: Yes - BMI 37.3 Height: 5 ft 9 in - 253# Stress: Home/Family Risk Factor for Sedentary Lifestyle: Moderate Risk Laboratory Values: Cardiac Rehab Phase I Labs Hemoglobin A1c 6.8 % (4.2-6.3) H 09/23/18 04:55 Triglycerides 390 mg/dL (-199) H 09/23/18 04:55 Cholesterol 152 mg/dL (200) 09/23/18 04:55 LDL Cholesterol 46 mg/dL (0-130) 09/23/18 04:55 HDL Cholesterol 28 mg/dL (40-) L 09/23/18 04:55 Phase I Education Given On:: [place], Nutrition, Antiplatelet medication, Smoking cessation Issues Affecting Care:: None Knowledge of Condition:: Yes Learning Preferences: Verbal, Written - FAMILY AT BEDSIDE Medical/Surgical History PR:: No CAD:: No Cardiomyopathy:: No Pulmonary:: No COPD:: No Asthma:: No ORTIZ:: No Diabetes:: No Diabetes Type I:: No Diabetes Type II:: No Hypertension:: No Dyslipidemia:: Yes Arrhythmias:: No EPS:: No CEA:: No PE:: No DVT:: No PVD:: No PAD:: No Arthritis:: No GI:: No GERD:: No Cancer:: No Renal:: No Depression:: No Anxiety:: No CABG: No PTCA:: No ICD:: No Pacemaker:: No Orthopedic:: No Discharge/Home/Social Eval Discharge Disposition: Home Cardiac Rehabilitation Info Cardiac Rehabilitation Program Information: Cardiac Rehabilitation is important for patients like you who are recovering from a heart problem. Cardiac rehabilitation programs are recognized as integral to the continued care of the patient with coronary heart disease. The cardiac rehabilitation program is designed to optimize a patient's physical, psychological, and social functioning. Health animal care worker work in cardiac rehabilitation programs and assist you with getting the treatments you need to get stronger and healthier - like exercise, healthy eating habits, and medications. Cardiac rehabilitation has been show to help people with heart problems live longer and have better life enjoyment than people who do not go to cardiac rehabilitation. Please contact the Cardiac Rehabilitation Program at [facility] at in two weeks if you have not heard from them.
--- NOTE | 2018-09-24 10:20 | CRPHASE1_ITS ---
Patient Communication PHII Cardiac Rehab Discussed with Patient:: Yes Guide to Cardiac Rehab Given to Patient:: Yes Cardiac Rehab Facility Choice List Given to Patient:: Yes - WOULD LIKE TO ATTEND AT [facility] Other:: Communication Given to CR, With permission faxed order and referral information Band Instrument Maker:: Martínez Chairez Refer Phase II Cardiac Rehab:: Yes Sessions:: 36 sessions - 3 days/wk, 12 weeks Risk Factors/Lifestyle Smoking Status: Current every day smoker Hx Hypertension: No Hx Diabetes Mellitus Type 1: No Hx Diabetes Mellitus Type 2: No Hx Metabolic Disorders: Yes Hx Dyslipidemia: Yes Hx Obesity: Yes - BMI 37.3 Height: 5 ft 9 in - 253# Stress: Home/Family Risk Factor for Sedentary Lifestyle: Moderate Risk Laboratory Values: Cardiac Rehab Phase I Labs Hemoglobin A1c 6.8 % (4.2-6.3) H 09/23/18 04:55 Triglycerides 390 mg/dL (-199) H 09/23/18 04:55 Cholesterol 152 mg/dL (200) 09/23/18 04:55 LDL Cholesterol 46 mg/dL (0-130) 09/23/18 04:55 HDL Cholesterol 28 mg/dL (40-) L 09/23/18 04:55 Phase I Education Given On:: [place], Nutrition, Antiplatelet medication, Smoking cessation Issues Affecting Care:: None Knowledge of Condition:: Yes Learning Preferences: Verbal, Written - FAMILY AT BEDSIDE Medical/Surgical History [place]:: No CAD:: No Cardiomyopathy:: No Pulmonary:: No COPD:: No Asthma:: No ORTIZ:: No Diabetes:: No Diabetes Type I:: No Diabetes Type II:: No Hypertension:: No Dyslipidemia:: Yes Arrhythmias:: No EPS:: No CEA:: No PE:: No DVT:: No PVD:: No PAD:: No Arthritis:: No GI:: No GERD:: No Cancer:: No Renal:: No Depression:: No Anxiety:: No CABG: No PTCA:: No ICD:: No Pacemaker:: No Orthopedic:: No Discharge/Home/Social Eval Discharge Disposition: Home Cardiac Rehabilitation Info Cardiac Rehabilitation Program Information: Cardiac Rehabilitation is important for patients like you who are recovering from a heart problem. Cardiac rehabilitation programs are recognized as integral to the continued care of the patient with coronary heart disease. The cardiac rehabilitation program is designed to optimize a patient's physical, psychological, and social functioning. Health healthcare applications analyst work in cardiac rehabilitation programs and assist you with getting the treatments you need to get stronger and healthier - like exercise, healthy eating habits, and medications. Cardiac rehabilitation has been show to help people with heart problems live longer and have better life enjoyment than people who do not go to cardiac rehabilitation. Please contact the Cardiac Rehabilitation Program at [facility] at in two weeks if you have not heard from them.
--- NOTE | 2018-09-24 10:23 | CRPH1.INST_ITS ---
General Education CAD and cardiac anatomy and function:: Patient communicates acknowledgment - FAMILY AT BEDSIDE, Family communicates acknowledgment Explanation of diagnoses and procedures:: Patient communicates acknowledgment, Family communicates acknowledgment Sign/Symptoms of CA:: Patient communicates acknowledgment, Family communicates acknowledgment Antiplatelet therapy: Patient communicates acknowledgment, Family communicates acknowledgment Proper use of NTG-SL: Patient communicates acknowledgment, Family communicates acknowledgment Emergency procedures and activation of EMS: Patient communicates acknowledgment, Family communicates acknowledgment Compliance of all prescribed medications: Patient communicates acknowledgment, Family communicates acknowledgment Smoking Patient Nicotine/Smoking Risk Factors Are:: Cigarettes Recommendations Include:: Smoking cessation strategies/Smoking packet, Second- hand smoke recommendation, Participation in a smoking cessation program Nicotine/Smoking Response Code:: Patient communicates acknowledgment, Family communicates acknowledgment Dyslipidemia Patient Dyslipidemia Risk Factors Are:: Triglycerides, HDL Recommendations Include:: Lipid profile provided, Reviewed NCEP/ATP guidelines, Therapeutic Lifestyle Change dietary guidelines Dyslipidemia Response Code:: Patient communicates acknowledgment, Family communicates acknowledgment Overweight/Obesity Patient Overweight/Obesity Risk Factors Are:: Obesity - > or = 30 Recommendations Include:: Weight loss of 5-10%, Reduced calorie diet, Exercise 5-7 times/week Overweight/Obesity:: Patient communicates acknowledgment, Family communicates acknowledgment Hypertension Patient Hypertension Risk Factors Are:: No documented hx of HTN Heart Disease Heart Disease Response Code:: Patient communicates acknowledgment, Family communicates acknowledgment Diabetes Patient Diabetes Risk Factors Are:: No documented hx of diabetes Metabolic Syndrome Patient Metabolic Syndrome Risk Factors Are [3 of 5]:: Waist circumference > 35 [female] or 40 [male], High triglyceride >150, Low HDL <40 [male] or < 50 [female] Recommendations Include:: Reinforce compliance to risk factor modifications, Encouraged follow-up with Primary Care Physician Metabolic Syndrome Response Code:: Patient communicates acknowledgment, Family communicates acknowledgment Sedentary Patient Sedentary Risk Factors Are:: Lack of regular exercise Recommendations Include:: Aerobic exercise 5-7 times/week for 20-30 minutes continuously, Benefits of regular exercise, Discussed home walking program, Monitored Outpatient Cardiac Rehab Sedentary Response Code:: Patient communicates acknowledgment, Family communicates acknowledgment Stress Recommendations Include:: Identification of stressors, and assessment of coping skills, Stress management techniques Stress Response Code:: Patient communicates acknowledgment, Family communicates acknowledgment
[2018-09-24 10:26] LABS: Bedside Glucose 114 mg/dL (70-110)
[2018-09-24] MEDS: Losartan Potassium 25 MG Tablet 12.5 MG PO (11:30)
--- NOTE | 2018-09-24 12:18 | CPS ---
PT OFFERED HOSPITAL PAP AND REFUSED. PT STATES HE WOULD LIKE TO JUST WEAR OXYGEN HS. 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 PT STATES HIS HOME SETTING IS CPAP15 WITH 2L BLEED IN.
[2018-09-24 12:31] LABS: Bedside Glucose 127 mg/dL (70-110)
--- NOTE | 2018-09-24 16:53 | PN_ITS ---
Progress Note Patient is scheduled for a post hospital follow-up with Dr. Chairez at the [facility] Office on 10/11/2018 at 10:45 AM.
--- NOTE | 2018-09-24 17:22 | PN_ITS ---
Patient Problems: Active and Suspected Problems Chest pain (Acute) Cardiac enzymes elevated (Acute) Subjective: Patient was seen and examined today, he underwent cardiac catheterization with angioplasty and insertion of one stent today. Patient has no complaints of any chest pain at the time of my examination. He has no complaints of any shortness of breath - Physical Exam General: Alert, Oriented x3, Cooperative HEENT: Atraumatic, PERRLA, EOMI, Normocephalic Oral: Moist Mucosa Neck: Supple, No JVD, Trachea Midline, Thyroid Normal Size and Texture Lungs: Clear to auscultation, Normal air movement, No rhonchi, No wheeze, No rales Cardiovascular: Regular rate, Regular Rhythm, Normal S1, Normal S2, No murmurs, No Ectopic Activity Abdomen: Bowel Sounds Present, Soft, Non Tender, Non-Distended, No hernias noted Extremities: No clubbing, No cyanosis, No edema, Capillary Refill Less than 3 Seconds Skin: No rashes, No breakdown Musculoskeletal: No Tenderness to Palpation of Joints or Extremities Neurological: Cranial nerves II-XII grossly intact, Neuro grossly intact, Sensory exam intact to light touch and pain, Coordination normal Psych/Mental Status: Normal Affect, Appropriate, Alert and oriented to time, place, person, mood and affect Vital Signs Temp Pulse Resp BP Pulse Ox 97.8 F 68 16 120/78 93 09/24/18 12:00 09/24/18 15:00 09/24/18 15:00 09/24/18 15:00 09/24/18 15:00 Oxygen Flow Rate (L/min) 2 Oxygen Delivery Method Room Air Weight: 114.6 kg Body Mass Index (BMI) 37.3 Intake and Output for Last 24 Hours 09/22/18 09/23/18 09/24/18 23:59 23:59 23:59 Intake Total 2826 / 2826 1956 / 1956 Output Total 525 / 525 Balance 2826 / 2826 1431 / 1431 Laboratory Tests Past 24 Hrs 09/24/18 09/24/18 09/24/18 05:15 05:15 05:15 WBC 7.8 RBC 4.83 Hgb 14.8 Hct 44.5 MCV 92.1 MCH 30.6 MCHC 33.3 RDW 14.0 RDW Differential 46.8 H Plt Count 215 MPV 9.5 Immature Gran % (Auto) 0.400 Neut % (Auto) 53.1 Lymph % (Auto) 37.2 [place] % (Auto) 5.2 Eos % (Auto) 2.9 Baso % (Auto) 1.2 H Absolute Neuts (auto) 4.2 Absolute Lymphs (auto) 2.91 Total Counted Not Reportable PT 13.8 INR 1.1 APTT 37.0 H Activated Clotting Time Sodium 142 Potassium 4.2 Chloride 109 H Carbon Dioxide 29.0 Anion Gap 4 L BUN 17 Creatinine 0.92 Estim Creat Clear Calc 87.52 Est GFR (MDRD) Af Amer 109 Est GFR (MDRD) Non-Af 90 BUN/Creatinine Ratio 18.6 Glucose 115 H Calcium 8.3 L 09/24/18 08:31 WBC RBC Hgb Hct MCV MCH MCHC RDW RDW Differential Plt Count MPV Immature Gran % (Auto) Neut % (Auto) Lymph % (Auto) [place] % (Auto) Eos % (Auto) Baso % (Auto) Absolute Neuts (auto) Absolute Lymphs (auto) Total Counted PT INR APTT Activated Clotting Time 186 H Sodium Potassium Chloride Carbon Dioxide Anion Gap BUN Creatinine Estim Creat Clear Calc Est GFR (MDRD) Af Amer Est GFR (MDRD) Non-Af BUN/Creatinine Ratio Glucose Calcium POC Glucose 09/24/18 09/24/18 09/24/18 12:25 10:15 06:45 POC Glucose 127 H 114 H 130 H 09/23/18 21:11 POC Glucose 99 Medical Necessity - Tobacco Use Smoking Status: Current every day smoker Tobacco Use: Cigarettes Assessment/Plan All Active Problems Chest pain (Acute) Cardiac enzymes elevated (Acute) #1 [id number] patient underwent a cardiac catheterization today with intervention, he will remain on his present medications with any adjustment of cardiac meds done by cardiology. #2 occlusive coronary artery disease-patient had single-vessel occlusive coronary artery disease of the mid circumflex coronary artery, LV function was normal, drug-eluting stent was placed in the mid circumflex artery, ostial branch underwent a balloon angioplasty #3 nonocclusive coronary artery disease left anterior descending artery, right coronary artery #4 hypertension #5 type 2 diabetes #6 hyperlipidemia Code Visit Inpatient E&M: 14640 Subs Hosp L2
[2018-09-24 17:30] LABS: Bedside Glucose 91 mg/dL (70-110)
[2018-09-24 21:41] LABS: Bedside Glucose 87 mg/dL (70-110)
[2018-09-24] MEDS: Atorvastatin Calcium 80 MG Tablet PO (21:46)
[2018-09-25] VITALS (14 sets, daily range): BP systolic 99–146; BP diastolic 61–95; PULSE 64–77; RESP 14–19; TEMP 36.3–36.6; O2SAT 90–97
[2018-09-25 04:15] LABS: Hematocrit 45.8 % (40-54); Mean Corp Hgb Conc 32.8 g/gl (32-36); Mean Corpuscular Hgb 29.7 pg (27.0-32.0); Mean Corpuscular Volume 90.7 fL (80-94); Mean Platelet Vol. 9.6 fl (6.2-12.0); Platelet Count 224 K/mm3 (150-450); RBC Distribution Width CV 14.2 % (11.6-14.6); RBC Distribution Width SD 46.8 fl (35.1-43.9); Red Blood Count 5.05 M/mm3 (4.6-6.2); White Blood Count 8.2 K/mm3 (4.4-11.0)
[2018-09-25 04:17] LABS: Scan Indicated on CBC? Y/N NO
[2018-09-25 04:27] LABS: Anion Gap 5 (5-15); BUN 15 mg/dL (7-18); BUN/Creat Ratio 16.6 RATIO (10-20); Calcium,Total 8.3 mg/dL (8.5-10.1); Chloride 108 mmol/L (98-107); EST Glomerular Filtration Rate 92 mL/min (>60); Est Glom Filt Rate - Afr Amer 111 mL/min (>60); Estimated Creatinine Clearance 89.47 ml/min; Glucose 140 mg/dL (74-106); Potassium 4.3 mmol/L (3.5-5.1); Sodium Level 140 mmol/L (136-145)
[2018-09-25 06:45] LABS: Bedside Glucose 106 mg/dL (70-110)
[2018-09-25] MEDS: Clopidogrel Bisulfate 75 MG Tablet PO (08:27)
[2018-09-25] MEDS: Aspirin E.C. 81 MG Tablet PO (08:27)
[2018-09-25] MEDS: Carvedilol 6.25 MG Tablet PO (08:27)
[2018-09-25] MEDS: Losartan Potassium 25 MG Tablet 12.5 MG PO (08:28)
--- NOTE | 2018-09-25 10:00 | EKG12_ITS ---
Test Reason : AM EKG Blood Pressure : / mmHG Vent. Rate : 062 BPM Atrial Rate : 062 BPM P-R Int : 206 ms QRS Dur : 082 ms QT Int : 408 ms P-R-T Axes : 028 052 038 degrees QTc Int : 414 ms Normal sinus rhythm Normal ECG When compared with ECG of 24-SEP-2018 03:26, MANUAL COMPARISON REQUIRED, DATA IS UNCONFIRMED Confirmed by PATRICE ESPINAL ([id number]), telegraph editor FOREST RESENDEZ ([id number]) on 09/30/2018 4:49:42 PM Referred By: DR VERA Confirmed By:AMANDA ESPINAL
--- NOTE | 2018-09-25 10:22 | PCM.PN.CARD ---
Subjectve: Patient doing very well this morning. Had some residual chest pain after the procedure yesterday however it has resolved. Right groin is clean/dry/intact, no thrills, bruits or hematoma. EKG shows normal sinus rhythm, no acute changes. Telemetry negative. Hemoglobin and creatinine are within nominal limits. Objective: Vital Signs Temp Pulse Resp BP Pulse Ox 97.4 F L 74 17 121/89 H 95 09/25/18 04:00 09/25/18 07:28 09/25/18 07:00 09/25/18 07:00 09/25/18 07:00 Oxygen Flow Rate (L/min) 2 Oxygen Delivery Method Room Air Weight: 252 lb 10.396 oz Body Mass Index (BMI) 37.3 Intake and Output for Last 24 Hours 09/23/18 09/24/18 09/25/18 23:59 23:59 23:59 Intake Total 2826 / 2826 3076 / 3076 240 / 240 Output Total 525 / 525 Balance 2826 / 2826 2551 / 2551 240 / 240 General: Awake, Alert, Oriented x 3 HEENT: PERRL, EOMI, Sclera Non Icteric Neck: Supple, Good ROM, No Lymph Node Enlargement Lungs: Clear to auscultation Cardiovascular: Regular Rhythm, Normal S1, Normal S2, No Murmurs, No Rubs, No Gallops Vascular: No Carotid Bruits, Normal Femoral Pulses, Normal Radial Pulses, Normal Dorsalis Pedal Pulse, Normal Posterior Tibial Pulses Abdomen: Bowel Sounds Present, Soft, Non Tender, No HSM, No Organomegaly Extremities: No Cyanosis, No Clubbing, No edema Neurological: No Focal Motor or Sensory Deficit 09/25/18 04:00: WBC 8.2, RBC 5.05, Hgb 15.0, Hct 45.8, MCV 90.7, MCH 29.7, MCHC 32.8, RDW 14.2, RDW Differential 46.8 H, Plt Count 224, MPV 9.6 09/25/18 04:00: Sodium 140, Potassium 4.3, Chloride 108 H, Carbon Dioxide 27.0, Anion Gap 5, BUN 15, Creatinine 0.90, Est GFR (MDRD) Af Amer 111, Est GFR (MDRD) Non-Af 92, BUN/Creatinine Ratio 16.6, Glucose 140 H, Calcium 8.3 L Rhythm: EKG: ECHO: Stress Test: Cardiac Cath: PCI: CT Surgery: Holter monitor: EPS: PPM: CXR: Chest CT Scan: Medical Necessity - Tobacco Use Smoking Status: Current every day smoker Tobacco Use: Cigarettes Assessment/Plan 1. Chest pain: The patient has had about a 1 to 2-week history of progressively worsening substernal chest pain, culminating in severe chest pain that woke him up from a sound sleep at 1 AM despite using CPAP therapy religiously. He had a very minimal troponin release that is max so far at 3.8. 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 He is currently chest pain-free. Patient underwent diagnostic coronary undergone yesterday which demonstrated a critical lesion in his mid left circumflex and nonobstructive disease of his LAD and right coronary artery. He underwent successful Nafisa plasty and drug-eluting stenting to his mid RCA followed by balloon angioplasty only of the obtuse marginal #2 with an excellent result. His right groin is clean/dry/intact without evidence of thrills, bruits or hematoma. I recommended that he continue medical management with baby aspirin, Plavix, and that he follow-up with us in 1 week's time for a groin check and EKG. 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 He will follow-up with me going forward in 4 to 6 weeks time. 2. Hyperlipidemia: Recommend obtaining a fasting lipid profile. His LDL should be less than 70 given his diabetes and non-STEMI. 3. 2D echo with Doppler on 09/23/2018 showed an EF of 65%, and an RVSP of 31 mmHg. 4. Obstructive sleep apnea: Continue CPAP therapy while he is in-house to avoid hypoxemic episodes during his sleep. 5. Thank you very much for the opportunity to put dissipate in the cardiac care of your patient. Patient may be discharged home. Code Visit Inpatient E&M: 86586 Subs Hosp L2
--- NOTE | 2018-09-25 10:25 | PN.CARD_ITS ---
Subjectve: Patient doing very well this morning. Had some residual chest pain after the procedure yesterday however it has resolved. Right groin is clean/dry/intact, no thrills, bruits or hematoma. EKG shows normal sinus rhythm, no acute changes. Telemetry negative. Hemoglobin and creatinine are within nominal limits. Objective: Vital Signs Temp Pulse Resp BP Pulse Ox 97.4 F L 74 17 121/89 H 95 09/25/18 04:00 09/25/18 07:28 09/25/18 07:00 09/25/18 07:00 09/25/18 07:00 Oxygen Flow Rate (L/min) 2 Oxygen Delivery Method Room Air Weight: 252 lb 10.396 oz Body Mass Index (BMI) 37.3 Intake and Output for Last 24 Hours 09/23/18 09/24/18 09/25/18 23:59 23:59 23:59 Intake Total 2826 / 2826 3076 / 3076 240 / 240 Output Total 525 / 525 Balance 2826 / 2826 2551 / 2551 240 / 240 General: Awake, Alert, Oriented x 3 HEENT: PERRL, EOMI, Sclera Non Icteric Neck: Supple, Good ROM, No Lymph Node Enlargement Lungs: Clear to auscultation Cardiovascular: Regular Rhythm, Normal S1, Normal S2, No Murmurs, No Rubs, No Gallops Vascular: No Carotid Bruits, Normal Femoral Pulses, Normal Radial Pulses, Normal Dorsalis Pedal Pulse, Normal Posterior Tibial Pulses Abdomen: Bowel Sounds Present, Soft, Non Tender, No HSM, No Organomegaly Extremities: No Cyanosis, No Clubbing, No edema Neurological: No Focal Motor or Sensory Deficit 09/25/18 04:00: WBC 8.2, RBC 5.05, Hgb 15.0, Hct 45.8, MCV 90.7, MCH 29.7, MCHC 32.8, RDW 14.2, RDW Differential 46.8 H, Plt Count 224, MPV 9.6 09/25/18 04:00: Sodium 140, Potassium 4.3, Chloride 108 H, Carbon Dioxide 27.0, Anion Gap 5, BUN 15, Creatinine 0.90, Est GFR (MDRD) Af Amer 111, Est GFR (MDRD) Non-Af 92, BUN/Creatinine Ratio 16.6, Glucose 140 H, Calcium 8.3 L Rhythm: EKG: ECHO: Stress Test: Cardiac Cath: PCI: CT Surgery: Holter monitor: EPS: PPM: CXR: Chest CT Scan: Medical Necessity - Tobacco Use Smoking Status: Current every day smoker Tobacco Use: Cigarettes Assessment/Plan 1. Chest pain: The patient has had about a 1 to 2-week history of progressively worsening substernal chest pain, culminating in severe chest pain that woke him up from a sound sleep at 1 AM despite using CPAP therapy religiously. He had a very minimal troponin release that is max so far at 3.8. 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 He is currently chest pain-free. Patient underwent diagnostic coronary undergone yesterday which demonstrated a critical lesion in his mid left circumflex and nonobstructive disease of his LAD and right coronary artery. He underwent successful Nafisa plasty and drug- eluting stenting to his mid RCA followed by balloon angioplasty only of the obtuse marginal #2 with an excellent result. His right groin is clean/dry/intact without evidence of thrills, bruits or hematoma. I recommended that he continue medical management with baby aspirin, Plavix, and that he follow-up with us in 1 week's time for a groin check and EKG. 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 He will follow-up with me going forward in 4 to 6 weeks time. 2. Hyperlipidemia: Recommend obtaining a fasting lipid profile. His LDL should be less than 70 given his diabetes and non-STEMI. 3. 2D echo with Doppler on 09/23/2018 showed an EF of 65%, and an RVSP of 31 mmHg. 4. Obstructive sleep apnea: Continue CPAP therapy while he is in-house to avoid hypoxemic episodes during his sleep. 5. Thank you very much for the opportunity to put dissipate in the cardiac care of your patient. Patient may be discharged home. Code Visit Inpatient E&M: 72759 Subs Hosp L2
--- NOTE | 2018-09-25 11:23 | PCM.DC ---
- Discharge Diagnoses Current Active Problems: Current Active and Chronic Problems (Last Updated 09/24/18 @ 17:28 by Ksenia Fisher) Atherosclerotic heart disease of [place] coronary artery without angina pectoris (Chronic) Successful PTCA/EAGLE mid LCX with a 3.0 x 20 Promus Synergy; Successful PCI with PTCA to the ostium of OM#2 with a 2.0 x 12 balloon; 50%-->30%, no dissection. 09/24/18 per [facility] NSTEMI (non-ST elevated myocardial infarction) (Acute) Stented coronary artery (Chronic 09/24/18) Successful PTCA/EAGLE mid LCX with a 3.0 x 20 Promus Synergy; Successful PCI with PTCA to the ostium of OM#2 with a 2.0 x 12 balloon; 50%-->30%, no dissection. 09/24/18 per [facility] Chest pain (Acute) Cardiac enzymes elevated (Acute) HTN (hypertension) (Chronic) HLD (hyperlipidemia) (Chronic) Obesity (BMI 30-39.9) (Chronic) Diabetes mellitus, type II (Chronic) History of supraventricular tachycardia (Chronic) You will use the following diet at home:: Calorie/Carbohydrate Controlled (specify 1200, 1400, etc) - 1800 abbie ADA Your food should be the consistency of: Regular Your liquids should be the consistency of: Regular/Thin Discharge Activity: Return to Normal Activity Weight Bearing Status: Full weight bearing Allergies/Adverse Reactions: Allergies codeine Adverse Reaction (Verified 09/23/18 02:44) Other Medications to take at Discharge Metformin(XR) [Glucophage Xr] 500 mg PO DAILY 09/23/18 Acetaminophen [Tylenol Tablet] 650 mg PO Q6H PRN PRN tablet 09/25/18 Aspirin E.C. [Ecotrin] 81 mg PO DAILY@0800 tablet 09/25/18 Atorvastatin Calcium [Lipitor] 80 mg PO QHS #30 tablet 09/25/18 Carvedilol [Coreg (Beta Mariusz)] 6.25 mg PO BID #60 tablet 09/25/18 Clopidogrel Bisulfate [Plavix] 75 mg PO DAILY #30 tablet 09/25/18 Losartan Potassium [Cozaar] 25 mg PO DAILY #30 tablet 09/25/18 The following prescriptions were given: Atorvastatin Calcium [Lipitor] 80 mg PO QHS #30 tablet Clopidogrel Bisulfate [Plavix] 75 mg PO DAILY #30 tablet Losartan Potassium [Cozaar] 25 mg PO DAILY #30 tablet Carvedilol [Coreg (Beta Mariusz)] 6.25 mg PO BID #60 tablet Orders to be completed after discharge: Phase II, Outpatient Cardiac Rehab Location: None Selected Primary Care Physician: Sandhya Priest [Primary Care Provider] - Please follow up with your Primary Care Physician in: in 3-4 weeks Test Results: Test results from this visit will be discussed in further detail at your follow-up appointment, if applicable. Please Follow Up With: Martínez Chairez MD When: Sunday
--- NOTE | 2018-09-26 19:08 | PCM.DC.SUM ---
Discharge Date and Diagnosis Date of Admission: 09/23/18 Date of Discharge: 09/25/18 - Primary Discharge Diagnosis 1 non-STEMI #2 occlusive coronary artery disease-patient had single-vessel occlusive coronary artery disease of the mid circumflex coronary artery #3 nonocclusive coronary artery disease in the left anterior descending artery, right coronary artery #4 hypertension #5 type 2 diabetes #6 hyperlipidemia - Secondary Discharge Diagnosis Chronic Problems (Last Updated 09/24/18 @ 17:28 by Ksenia Fisher) Atherosclerotic heart disease of [place] coronary artery without angina pectoris (Chronic) Successful PTCA/EAGLE mid LCX with a 3.0 x 20 Promus Synergy; Successful PCI with PTCA to the ostium of OM#2 with a 2.0 x 12 balloon; 50%-->30%, no dissection. 09/24/18 per [facility] Stented coronary artery (Chronic 09/24/18) Successful PTCA/EAGLE mid LCX with a 3.0 x 20 Promus Synergy; Successful PCI with PTCA to the ostium of OM#2 with a 2.0 x 12 balloon; 50%-->30%, no dissection. 09/24/18 per [facility] HTN (hypertension) (Chronic) HLD (hyperlipidemia) (Chronic) Obesity (BMI 30-39.9) (Chronic) Diabetes mellitus, type II (Chronic) History of supraventricular tachycardia (Chronic) Hospital Course and Treatment Operations: None Procedures: 2-D Echocardiogram, Cardiac catheterization - With drug-eluting stent placement in the mid circumflex artery, balloon angioplasty on the ostial branch-09/24/2018 Summary of Care Provided: The patient is a 58 year old M who was seen in the emergency room at [facility] with a chief complaint of intermittent chest pain. Work-up in the emergency room included an EKG which showed normal sinus rhythm at a rate of 85 with nonspecific T wave changes, labs were notable for troponin of 0.17, chest x-ray showed no acute disease. Cardiology was contacted, they requested that the patient be anticoagulated and given Plavix. Patient was admitted to ICU, cardiac enzymes were cycled and these were positive indicating a non-STEMI. On 09/24/2018, patient underwent a cardiac catheterization with insertion of a EAGLE stent in the circumflex artery and a balloon angioplasty of the ostial branch. Patient tolerated the procedure well and there were no complications. Patient went to ICU following intervention. On 09/25/2018, patient was seen and examined and felt to be in stable condition: On examination he appeared in good health and spirits. Vital signs as documented. Skin warm and dry and without overt rashes. Neck without JVD. Lungs clear. Heart exam notable for regular rhythm, normal sounds and absence of murmurs, rubs or gallops. Abdomen unremarkable and without evidence of organomegaly, masses, or abdominal aortic enlargement. Extremities nonedematous. Neuro: Cranial nerves II through XII are grossly intact, no focal motor deficits were noted, sensation to light touch and pinprick intact. Psych: Patient is alert and oriented x3, he does not appear anxious or depressed Patient was discharged home in stable condition on 09/25/2018. - Physical Exam Vital Signs Temp Pulse Resp BP Pulse Ox 97.4 F L 71 18 146/70 H 92 09/25/18 04:00 09/25/18 11:56 09/25/18 11:56 09/25/18 11:56 09/25/18 11:56 Oxygen Flow Rate (L/min) 2 Oxygen Delivery Method Room Air Weight: 114.6 kg Body Mass Index (BMI) 37.3 Intake and Output for Last 24 Hours 09/24/18 09/25/18 09/26/18 23:59 23:59 23:59 Intake Total 3076 / 3076 240 / 240 Output Total 525 / 525 Balance 2551 / 2551 240 / 240 Discharge Activity: Return to Normal Activity Weight Bearing Status: Full weight bearing Home Medications: Medications to take at Discharge Metformin(XR) [Glucophage Xr] 500 mg PO DAILY 09/23/18 Acetaminophen [Tylenol Tablet] 650 mg PO Q6H PRN PRN tablet 09/25/18 Aspirin E.C. [Ecotrin] 81 mg PO DAILY@0800 tablet 09/25/18 Atorvastatin Calcium [Lipitor] 80 mg PO QHS #30 tablet 09/25/18 Carvedilol [Coreg (Beta Mariusz)] 6.25 mg PO BID #60 tablet 09/25/18 Clopidogrel Bisulfate [Plavix] 75 mg PO DAILY #30 tablet 09/25/18 Losartan Potassium [Cozaar] 25 mg PO DAILY #30 tablet 09/25/18 Following Prescrptions Were Given to Patient: Atorvastatin Calcium [Lipitor] 80 mg PO QHS #30 tablet Clopidogrel Bisulfate [Plavix] 75 mg PO DAILY #30 tablet Losartan Potassium [Cozaar] 25 mg PO DAILY #30 tablet Carvedilol [Coreg (Beta Mariusz)] 6.25 mg PO BID #60 tablet Other Amb Orders: Phase II, Outpatient Cardiac Rehab Location: None Selected Primary Care Physician: Sandhya Priest [Primary Care Provider] - Please follow up with your Primary Care Physician in: in 3-4 weeks Please Follow Up With: Martínez Chairez MD When: Sunday Disposition: Home Minutes spent on discharge:: 32 Patient Condition:: Stable Medical Necessity - Tobacco Use Smoking Status: Current every day smoker Tobacco Use: Cigarettes Meaningful Use Info Meaningful Use Diagnoses (Choose all that apply): AMI - AMI Aspirin given w/in 24hrs of arrival?: Yes ASA at discharge?: Yes Statins at discharge?: Yes Roberto/ARB at discharge?: Yes Beta Mariusz at discharge?: Yes Done w/ Acute ND measure.: Yes Documented LVEF (%): 65 Code Visit Inpatient E&M: 84826 Disch Hosp
--- NOTE | 2018-09-26 19:14 | DS.PCM_ITS ---
Discharge Date and Diagnosis Date of Admission: 09/23/18 Date of Discharge: 09/25/18 - Primary Discharge Diagnosis 1 non-STEMI #2 occlusive coronary artery disease-patient had single-vessel occlusive coronary artery disease of the mid circumflex coronary artery #3 nonocclusive coronary artery disease in the left anterior descending artery, right coronary artery #4 hypertension #5 type 2 diabetes #6 hyperlipidemia - Secondary Discharge Diagnosis Chronic Problems (Last Updated 09/24/18 @ 17:28 by Ksenia Fisher) Atherosclerotic heart disease of [place] coronary artery without angina pectoris (Chronic) Successful PTCA/EAGLE mid LCX with a 3.0 x 20 Promus Synergy; Successful PCI with PTCA to the ostium of OM#2 with a 2.0 x 12 balloon; 50%-->30%, no dissection. 09/24/18 per [facility] Stented coronary artery (Chronic 09/24/18) Successful PTCA/EAGLE mid LCX with a 3.0 x 20 Promus Synergy; Successful PCI with PTCA to the ostium of OM#2 with a 2.0 x 12 balloon; 50%-->30%, no dissection. 09/24/18 per [facility] HTN (hypertension) (Chronic) HLD (hyperlipidemia) (Chronic) Obesity (BMI 30-39.9) (Chronic) Diabetes mellitus, type II (Chronic) History of supraventricular tachycardia (Chronic) Hospital Course and Treatment Operations: None Procedures: 2-D Echocardiogram, Cardiac catheterization - With drug-eluting stent placement in the mid circumflex artery, balloon angioplasty on the ostial branch-09/24/2018 Summary of Care Provided: The patient is a 58 year old M who was seen in the emergency room at [facility] with a chief complaint of intermittent chest pain. Work-up in the emergency room included an EKG which showed normal sinus rhythm at a rate of 85 with nonspecific T wave changes, labs were notable for troponin of 0.17, chest x-ray showed no acute disease. Cardiology was contacted, they requested that the patient be anticoagulated and given Plavix. Patient was admitted to ICU, cardiac enzymes were cycled and these were positive indicating a non-STEMI. On 09/24/2018, patient underwent a cardiac catheterization with insertion of a EAGLE stent in the circumflex artery and a balloon angioplasty of the ostial branch. Patient tolerated the procedure well and there were no complications. Patient went to ICU following intervention. On 09/25/2018, patient was seen and examined and felt to be in stable condition: On examination he appeared in good health and spirits. Vital signs as documented. Skin warm and dry and without overt rashes. Neck without JVD. Lungs clear. Heart exam notable for regular rhythm, normal sounds and absence of murmurs, rubs or gallops. Abdomen unremarkable and without evidence of organomegaly, masses, or abdominal aortic enlargement. Extremities nonedematous. Neuro: Cranial nerves II through XII are grossly intact, no focal motor deficits were noted, sensation to light touch and pinprick intact. Psych: Patient is alert and oriented x3, he does not appear anxious or depressed Patient was discharged home in stable condition on 09/25/2018. - Physical Exam Vital Signs Temp Pulse Resp BP Pulse Ox 97.4 F L 71 18 146/70 H 92 09/25/18 04:00 09/25/18 11:56 09/25/18 11:56 09/25/18 11:56 09/25/18 11:56 Oxygen Flow Rate (L/min) 2 Oxygen Delivery Method Room Air Weight: 114.6 kg Body Mass Index (BMI) 37.3 Intake and Output for Last 24 Hours 09/24/18 09/25/18 09/26/18 23:59 23:59 23:59 Intake Total 3076 / 3076 240 / 240 Output Total 525 / 525 Balance 2551 / 2551 240 / 240 Discharge Activity: Return to Normal Activity Weight Bearing Status: Full weight bearing Home Medications: Medications to take at Discharge Metformin(XR) [Glucophage Xr] 500 mg PO DAILY 09/23/18 Acetaminophen [Tylenol Tablet] 650 mg PO Q6H PRN PRN tablet 09/25/18 Aspirin E.C. [Ecotrin] 81 mg PO DAILY@0800 tablet 09/25/18 Atorvastatin Calcium [Lipitor] 80 mg PO QHS #30 tablet 09/25/18 Carvedilol [Coreg (Beta Mariusz)] 6.25 mg PO BID #60 tablet 09/25/18 Clopidogrel Bisulfate [Plavix] 75 mg PO DAILY #30 tablet 09/25/18 Losartan Potassium [Cozaar] 25 mg PO DAILY #30 tablet 09/25/18 Following Prescrptions Were Given to Patient: Atorvastatin Calcium [Lipitor] 80 mg PO QHS #30 tablet Clopidogrel Bisulfate [Plavix] 75 mg PO DAILY #30 tablet Losartan Potassium [Cozaar] 25 mg PO DAILY #30 tablet Carvedilol [Coreg (Beta Mariusz)] 6.25 mg PO BID #60 tablet Other Amb Orders: Phase II, Outpatient Cardiac Rehab Location: None Selected Primary Care Physician: Sandhya Priest [Primary Care Provider] - Please follow up with your Primary Care Physician in: in 3-4 weeks Please Follow Up With: Martínez Chairez MD When: Sunday Disposition: Home Minutes spent on discharge:: 32 Patient Condition:: Stable Medical Necessity - Tobacco Use Smoking Status: Current every day smoker Tobacco Use: Cigarettes Meaningful Use Info Meaningful Use Diagnoses (Choose all that apply): AMI - AMI Aspirin given w/in 24hrs of arrival?: Yes ASA at discharge?: Yes Statins at discharge?: Yes Roberto/ARB at discharge?: Yes Beta Mariusz at discharge?: Yes Done w/ Acute MT measure.: Yes Documented LVEF (%): 65 Code Visit Inpatient E&M: 36415 Disch Hosp
== END 2018-09-25 11:56 | disposition home or self-care (01) | DRG 247 ==
LOC: ED 03:25 → PCU 04:15 → ICU 09-24 09:10
PROVIDERS: Internal Medicine Cardiovascular Disease; Admitting Provider Family Medicine; Emergency Provider Emergency Medicine; Family Provider Internal Medicine; PCP Internal Medicine; Visit Provider Internal Medicine
DX: I21.4 Non-ST elevation (NSTEMI) myocardial infarction (principal); I10 Essential (primary) hypertension; E11.9 Type 2 diabetes mellitus without complications; F17.210 Nicotine dependence, cigarettes, uncomplicated; E66.9 Obesity, unspecified; E78.5 Hyperlipidemia, unspecified; Z68.37 Body mass index [BMI] 37.0-37.9, adult; G47.33 Obstructive sleep apnea (adult) (pediatric); I25.10 Atherosclerotic heart disease of native coronary artery without angina pectoris; Z79.84 Long term (current) use of oral hypoglycemic drugs
CPT/HCPCS: 36415; 71046; 80048; 80061; 80076; 81001; 82962; 83036; 83735; 84484; 85025; 85027; 85347; 85610; 85730; 92921; 92928; 93005; 93306; 93458; 97802; 99152; 99285; 99406; C1760; J7030; J7040; Q9957; Q9967; A4216; C1725; C1769; C1874; C1887; C1894; C8929; C9600

== ENCOUNTER → 2018-10-16 | Outpatient (CLI) | payer BC, SELFPAY ==
[2018-10-11 10:44] VITALS: BMI 37.9
--- NOTE | 2018-10-16 10:24 | STEWCON_ITS ---
Reason For Study: CAD Stress Results Protocol: Stone Protocol Maximum Predicted HR: 162 bpm Target HR: 138 bpm % Maximum Predicted HR: 75 % DurationHeart Rate Stage (mm:ss) (bpm) BP Comment Baseline 70 136/82No Chest Pain; Diluted Definity 3 ML Given Stone Protocol Stage I 3:00 105 158/84No Chest Pain; Mild Dyspnea; Leg Pain Stone Protocol Stage II 1:01 122 188/84No Chest Pain; Moderate Dyspnea; Leg Pain Recovery 73 130/82No Chest Pain Stress Duration: 4:01 mm:ss Maximum Stress HR: 122 bpm METS: 7 Baseline Echocardiogram Findings The estimated ejection fraction is 65 %. Stress Echo Wall motion Data Resting WM Intermediate WM Stress WM Resting Wall Motion Wall Motion Stress No regional wall motion No regional wall motion abnormalities noted. abnormalities noted. EKG Data The baseline ECG displays normal sinus rhythm. The patient exercised according to the regular Stone protocol for a total duration of 4:01. The maximum heart rate attained was 122 beats per minute. This was 75% of maximum predicted heart rate. The patient exercised into stage 2 of the Stone protocol. During stress, there were no ST or T wave changes noted to suggest ischemia. No clinical angina was noted. Interpretation Summary The estimated ejection fraction is 65 %. Normal, adequate, treadmill echocardiogram. Negative for ischemia by EKG and echocardiographic criteria. No anginal symptoms noted. Rare PVC noted. Appropriate blood pressure response to exercise. Test terminated due to leg discomfort. Despite being below target heart rate, the patient had an adequate rate pressure product. Final LVEF of 75%. Decreased sensitivity due to poor echo windows requiring Definity enhancing agent. No complications. The study was technically difficult. Contrast injection was performed. Ordering Physician: Martínez Chairez Referring Physician: Sandhya Priest Performed By: Mindi Peralta, SARAVANANCS, RVT
== END | disposition home or self-care (01) ==
PROVIDERS: Family Provider Internal Medicine; PCP Internal Medicine; Referring Provider Internal Medicine Cardiovascular Disease; Visit Provider Internal Medicine Cardiovascular Disease
DX: I25.10 Atherosclerotic heart disease of native coronary artery without angina pectoris (principal); I25.2 Old myocardial infarction; G47.33 Obstructive sleep apnea (adult) (pediatric); Z86.79 Personal history of other diseases of the circulatory system; Z72.0 Tobacco use
CPT/HCPCS: 93017; 93350; Q9957; A4216; C8928

== ENCOUNTER → 2019-12-02 09:15 | Outpatient (CLI) | payer BC, SELFPAY ==
[2019-11-13 08:58] VITALS: BMI 41.3
--- NOTE | 2019-12-02 09:16 | STEWCON_ITS ---
Reason For Study: CAD/ASHD Stress Results Protocol: Stone Protocol WITH DEFINITY Maximum Predicted HR: 161 bpm Target HR: 137 bpm % Maximum Predicted HR: 75 % DurationHeart Rate Stage (mm:ss) (bpm) BP Comment BASELINE 75 132/884 CC DEFINITY FOR TEST STAGE 1 3:00 104 190/98 STAGE 2 2:20 120 / INCREASED SOB, LEG PAIN RECOVERY 75 142/82 Stress Duration: 5:20 mm:ss Maximum Stress HR: 120 bpm Baseline Echocardiogram Findings The estimated ejection fraction is 65 %. Stress Echo Wall motion Data Resting WM Intermediate WM Stress WM Resting Wall Motion Wall Motion Stress No regional wall motion No regional wall motion abnormalities noted. abnormalities noted. EKG Data The baseline ECG displays normal sinus rhythm. The patient exercised according to the regular Stone protocol for a total duration of 5:20. The maximum heart rate attained was 118 beats per minute. This was 73% of maximum predicted heart rate. The patient exercised into stage 2 of the Stone protocol. During stress, there were no ST or T wave changes noted to suggest ischemia. No arrhythmias noted. No clinical angina was noted. Interpretation Summary The estimated ejection fraction is 65 %. Normal, adequate, treadmill echocardiogram. Negative for ischemia by EKG and echocardiographic criteria. No anginal symptoms noted. Hypertensive blood pressure response to exercise. No arrhythmias noted. Below average exercise capacity for age. Test terminated due to dyspnea, fatigue and leg discomfort. Final LVEF is 75%. Decrease sensitivity due to poor echo windows and failure to reach target heart rate. Patient did however have an adequate rate-pressure product of 19,570 making this an adequate test. The study was technically difficult. Contrast injection was performed. Ordering Physician: Martínez Chairez Referring Physician: Martínez Chairez Performed By: Madhav Mills RCS
== END ==
PROVIDERS: PCP Internal Medicine; Referring Provider Internal Medicine Cardiovascular Disease; Visit Provider Internal Medicine Cardiovascular Disease
DX: I25.10 Atherosclerotic heart disease of native coronary artery without angina pectoris (principal); Z95.5 Presence of coronary angioplasty implant and graft
CPT/HCPCS: 93017; 93350; Q9957; A4216; C8928

== ENCOUNTER → 2021-03-11 08:50 | Outpatient (CLI) | payer BC, SELFPAY ==
[2021-03-11 10:31] LABS: BUN 21 mg/dL (7-18); Creatinine, Serum 0.92 mg/dL (0.70-1.30); EST Glomerular Filtration Rate 89 mL/min (>60); Est Glom Filt Rate - Afr Amer 107 mL/min (>60)
== END ==
PROVIDERS: PCP Internal Medicine; Referring Provider Surgery Vascular Surgery; Visit Provider Surgery Vascular Surgery
DX: I71.4 Abdominal aortic aneurysm, without rupture (principal); I25.2 Old myocardial infarction; E11.9 Type 2 diabetes mellitus without complications; E78.00 Pure hypercholesterolemia, unspecified; I10 Essential (primary) hypertension; I15.9 Secondary hypertension, unspecified; Z87.891 Personal history of nicotine dependence
CPT/HCPCS: 36415; 82565; 84520

== ENCOUNTER → 2021-04-08 07:37 | Outpatient (CLI) | payer BC, SELFPAY ==
--- NOTE | 2021-04-08 07:41 | CT_ITS ---
INDICATION: AAA EXAMINATION: CT ABDOMEN AND PELVIS WITH CONTRAST - CTA Abdomen and Pelvis WO/W Contrast Injection TECHNIQUE: Helically acquired images were obtained of the abdomen and pelvis following IV contrast. A radiation dose optimization technique was used for this scan. IV Contrast dosage and agent: 100 mL [id number] Oral contrast: None. COMPARISON: None. FINDINGS: Lower thorax: Lingular atelectasis and interstitial thickening. Otherwise, the lung bases are clear. Liver: Diffuse hepatic steatosis. No hepatic masses. Gallbladder: Normal appearance. No bile duct dilation. Spleen: Unremarkable. Pancreas: No focal parenchymal masses. No duct dilation. Adrenal glands: Right adrenal gland thickening, likely hyperplasia. Otherwise, unremarkable. Kidneys: No cystic or solid masses. No calculi. No hydronephrosis. No acute findings. GI tract: No significant bowel wall thickening or bowel dilation. Scattered colonic diverticulosis without CT findings of diverticulitis. No acute inflammatory changes. Peritoneum/mesentery/retroperitoneum: No ascites or free air. No masses. No lymphadenopathy. Pelvis: Normal bladder. No ascites or free air. No masses. Vasculature: Infrarenal fusiform abdominal aortic aneurysm measuring approximately 4.8 x 4.9 x 8.8 cm in greatest dimension (AP, transverse, CC measurements). Moderate atheromatous plaque and arterial atherosclerotic calcifications. No iliac artery aneurysm. No flow limiting stenosis. Bones/soft tissues: No acute findings. Multilevel degenerative changes of the spine. Moderate degenerative changes of the bilateral sacroiliac and glenohumeral joints and the pubic symphysis. No destructive osseous lesions. CT/CT ANGIO ABD&PEL W/O&W/DYE IMPRESSION: 1. 4.8 x 4.9 x 8.8 cm infrarenal fusiform abdominal aortic aneurysm. 2. Moderate arterial atherosclerotic calcifications and atheromatous plaque. No acute findings or flow-limiting stenosis. 3. Diffuse hepatic steatosis. Electronically Signed: Junior Sanabria MD at 11:30 EST Tel , Service support ,
== END ==
PROVIDERS: PCP Internal Medicine; Referring Provider Surgery Vascular Surgery; Visit Provider Surgery Vascular Surgery
DX: I71.4 Abdominal aortic aneurysm, without rupture (principal)
CPT/HCPCS: 74174; Q9967

== ENCOUNTER 2022-02-23 05:16 | Emergency (ER) | payer BC, SELFPAY ==
[2022-02-23 05:17] VITALS: BP 169/92; PULSE 78; RESP 25; TEMP 35.9; O2SAT 94; BMI 39.7
--- NOTE | 2022-02-23 05:20 | EKG12_ITS ---
Test Reason : DYSRHYTHMIA Blood Pressure : / mmHG Vent. Rate : 072 BPM Atrial Rate : 072 BPM P-R Int : 182 ms QRS Dur : 090 ms QT Int : 374 ms P-R-T Axes : 034 061 055 degrees QTc Int : 409 ms Normal sinus rhythm Normal ECG Confirmed by KYLIE LONDON, PATRICE ([id number]), online content editor STEVEN WORTHINGTON ([id number]) on 02/27/2022 9:50:04 A M Referred By: YG Confirmed By:AMANDA ESPINAL MD
[2022-02-23 05:28] VITALS: PULSE 78; RESP 18; RESP 24; O2SAT 94
[2022-02-23] MEDS: Ipratropium/Albuterol Sulfate 3 ML AMPUL.NEB INHALATION (05:28)
--- NOTE | 2022-02-23 05:46 | RAD_ITS ---
STUDY: X-RAY CHEST REASON FOR EXAM: Male, 61 years old. dyspnea TECHNIQUE: Frontal and lateral views of the chest. COMPARISON: None. FINDINGS: Subsegmental atelectases are noted in the lung bases. There is no demonstrated pleural abnormality. Normal size heart. Normal mediastinum and rachel. Normal visualized pulmonary arteries. Normal visualized aortic arch and descending thoracic aorta. Normal visualized thoracic spine. Normal visualized ribs, clavicles, and shoulders. There is no demonstrated abnormality of the visualized soft tissue structures of the upper abdomen. RAD/Chest PA and Lateral IMPRESSION: Normal x-ray examination of the chest. Electronically Signed: Jonah Andres MD at 6:41 EDT ,
[2022-02-23] MEDS: Albuterol 2.5 MG/3 ML VIAL.NEB. INHALATION (05:53)
[2022-02-23] MEDS: MethylPREDNISolone 125 MG/2 ML Vial IV (05:55)
[2022-02-23 05:57] LABS: Absolute Lymphocyte Count 2.02 X10^3/uL (0.83-4.51); Absolute Neutrophil Count 5.5 X10^3/uL (2.0-7.7); Basophil# 0.08 X10^3/uL; Basophil% 0.9 % (0-1); Eosinophil# 0.28 X10^3/uL; Eosinophils% 3.2 % (0-5); Hematocrit 44.8 % (40-54); Hemoglobin 14.5 g/dL (13.0-16.5); Lymphocyte # 2.02 X10^3/ul (0.83-4.51); Lymphocyte % 23.2 % (19-41); Mean Corp Hgb Conc 32.4 g/dL (32-36); Mean Corpuscular Hgb 31.2 pg (27.0-32.0); Mean Corpuscular Volume 96.3 fL (80-94); Monocyte# 0.68 X10^3/uL; Monocyte% 7.8 % (0-10); NRBC Flagged by Analyzer 0 % (0-5); Neutrophil # 5.54 X10^3/uL (2.7-7.7); Neutrophil % 63.8 % (47-70); Platelet Count 224 K/mm3 (150-450); RBC Distribution Width CV 13.8 % (11.6-14.6); RBC Distribution Width SD 49.1 fl (35.1-43.9); Red Blood Count 4.65 M/mm3 (4.6-6.2); White Blood Count 8.7 K/mm3 (4.4-11.0)
--- NOTE | 2022-02-23 06:04 | CPS ---
[5384] x1 Albuterol given to pt. in ER. Pt.'s breath sounds have improved, with scattered wheezes through out all lung horowitz. Pt. much more comfortable at this time compared to time he came into ER.
[2022-02-23 06:16] LABS: Anion Gap 5 (5-15); BUN 23 mg/dL (7-18); BUN/Creat Ratio 21.7 RATIO (10-20); Calcium,Total 9.4 mg/dL (8.5-10.1); Chloride 105 mmol/L (98-107); Creatinine, Serum 1.06 mg/dL (0.70-1.30); EST Glomerular Filtration Rate 75 mL/min (>60); Est Glom Filt Rate - Afr Amer 91 mL/min (>60); Estimated Creatinine Clearance 73.18 ml/min; Glucose 134 mg/dL (74-106); Magnesium 2.1 mg/dL (1.6-2.6); Potassium 4.4 mmol/L (3.5-5.1); Sodium Level 140 mmol/L (136-145); Troponin-I HS 7 pg/mL (3.0-78.0)
[2022-02-23 06:26] VITALS: BP 121/95; PULSE 73; RESP 17; O2SAT 94
[2022-02-23 07:23] LABS: BNP,B-Type NATRIURETIC PEPTIDE 22.3 pg/mL (0-100)
--- NOTE | 2022-02-23 07:34 | EX.ED.DYSGE1 ---
HPI History of Present Illness Chief Complaint: Chest Pain Narrative Narrative: Patient is a 61-year-old male with past medical history of hypertension hyperlipidemia obstructive sleep apnea requiring CPAP. Patient also has a previous history of CAD requiring stents placed in 2019. He also reports a past history of smoking roughly 2-1/2 packs a day for 20 to 30 years but denies any true diagnosis of COPD. Patient states for the past 2 to 3 days he has had mild congestion and cough. He states that despite this he has not felt short of breath. He reports he went to bed normally last night wearing his CPAP. He awoke this morning to use the restroom and after doing so felt shortness of breath and chest tightness. Because of his previous cardiac history he was concerned this could be a cardiac event and therefore comes in for evaluation [facility] Medical History (Updated 02/23/22 @ 07:[address] Carlito Moon, ) Atherosclerotic heart disease of [place] coronary artery without angina pectoris Chest pain Diabetes mellitus, type II History of non-ST elevation myocardial infarction (NSTEMI) (09/24/18) History of supraventricular tachycardia HLD (hyperlipidemia) HTN (hypertension) NSTEMI (non-ST elevated myocardial infarction) Obesity (BMI 30-39.9) Obstructive sleep apnea Tobacco abuse Home Medications acetaminophen 325 mg tablet 650 mg PO Q6H PRN PRN Mild Pain (0-2/10) 09/25/18 [Rx Last Taken Unknown] aspirin 81 mg tablet,delayed release 81 mg PO DAILY@0800 09/25/18 [Rx Last Taken Unknown] coenzyme Q10 200 mg capsule (Co Q-10) 200 mg PO DAILY 10/11/18 [History Last Taken Unknown] magnesium oxide 250 mg PO DAILY 10/11/18 [History Last Taken Unknown] metformin 500 mg tablet,extended release 24 hr 1,000 mg PO DAILY 10/11/18 [History Last Taken Unknown] atorvastatin 80 mg tablet 80 mg PO DAILY 05/16/19 [History Last Taken Unknown] ascorbic acid (vitamin C) 500 mg capsule,extended release 500 mg PO DAILY 11/13/19 [History Last Taken Unknown] pyridoxine (vitamin B6) 50 mg capsule (Vitamin B-6) 50 mg PO DAILY 11/13/19 [History Last Taken Unknown] carvedilol 6.25 mg tablet 12.5 mg PO BID 03/18/21 [History Last Taken Unknown] clopidogrel 75 mg tablet 75 mg PO DAILY #90 tabs 09/09/21 [Rx Last Taken Unknown] losartan 25 mg tablet 25 mg PO BID #180 tabs 11/22/21 [Rx Last Taken Unknown] semaglutide 0.25 mg or 0.5 mg (2 mg/1.5 mL) subcutaneous pen injector (Ozempic) 0.25 mg subcut QWEEK 01/24/22 [History Last Taken Unknown] albuterol sulfate 90 mcg/actuation aerosol inhaler (Ventolin HFA) 2 puff inhalation Q4H PRN PRN Wheezing #8.5 grams 02/23/22 [Rx Last Taken Unknown] benzonatate 200 mg capsule 200 mg PO TID PRN cough 7 days #21 caps 02/23/22 [Rx Last Taken Unknown] prednisone 20 mg tablet 40 mg PO DAILY 5 days #10 tabs 02/23/22 [Rx Last Taken Unknown] Allergy/AdvReac Type Severity Reaction Status Date / Time rosuvastatin [From Crestor] AdvReac Severe Severe Verified 02/23/22 05:22 myalgias (legs) codeine AdvReac Other Verified 02/23/22 05:22 Family History Mother Heart disease Pacemaker Father Stomach cancer Liver cancer Surgical History History of appendectomy History of thumb surgery Social History Smoking Status: Former smoker quit date: 09/24/18 pack-years: 40 alcohol intake: current alcohol intake frequency: 0-2 drinks per day Alcohol type: beer caffeine: No ROS ROS ED Constitutional Constitutional ED: Denies chills or fever(s) ENT ENT ED: Reports rhinorrhea; Denies sore throat Cardiovascular Cardiovascular: Reports chest pain Respiratory/Chest Respiratory/Chest: Reports cough and dyspnea Gastrointestinal Gastrointestinal: Denies abdominal pain, diarrhea, nausea or vomiting Genitourinary Genitourinary ED: Denies dysuria Musculoskeletal Musculoskeletal: Denies myalgias Integumentary Denies rash Neurologic Neurologic: Denies headache(s) Hematologic/Lymphatic Hematologic/Lymphatic: Denies easy bleeding or easy bruising EXAM Physical Exam Const Vital Signs: 02/23/22 05:17 02/23/22 05:28 02/23/22 05:28 Temperature 96.7 F L Temperature Source Temporal Pulse Rate 78 78 Respiratory Rate 25 H 18 24 H Respiratory Effort Short of Breath Accessory Muscle Use Respiratory Depth Shallow Respiratory Pattern Normal Tachypnea Blood Pressure 169/92 H Blood Pressure Mean 117 Pulse Ox 94 94 Oxygen Delivery Method Room Air Room Air 02/23/22 06:26 Temperature Temperature Source Pulse Rate 73 Respiratory Rate 17 Respiratory Effort Respiratory Depth Respiratory Pattern Blood Pressure 121/95 H Blood Pressure Mean 103 Pulse Ox 94 Oxygen Delivery Method Room Air Positive well nourished, well developed and obese General Appearance ED: well developed Nutritional Appearance: obese HEENT Reports moist mucous membranes HEENT Narrative: No tongue or lip swelling no oral lesions no airway edema or compromise. There is cobblestoning the posterior pharynx consistent with sinus drainage. Eyes PERRL and EOMs intact bilaterally Neck supple and no JVD Neck Narrative: Positive anterior cervical lymphadenopathy noted Chest Wall palpation of chest normal Resp Resp Narrative: Patient has diminished breath sounds throughout with mild tachypnea noted. Cardio regular rate and regular rhythm Rate: other Other Details: Radial pulses are plus 2 out of 4 bilaterally are equal and symmetric Carotid pulses are equal and symmetric as well GI normal to inspection, nondistended, normoactive bowel sounds, non-tender and non-distended GI Narrative: No voluntary guarding or rigidity no pulsatile mass Auscultation: normoactive bowel sounds Palpation: soft Extremity Extremity Narrative: Patient has trace to +1 pitting edema to the bilateral lower extremities but negative Homans' sign Neuro oriented x3 and CN's II-XII intact bilaterally Sensorium / Orientation: alert Psych mental status grossly normal Skin no rashes or lesions noted MDM MDM MDM Narrative Medical decision making narrative: Patient presented to the ER afebrile but hypertensive however he does have a history of this. He reported chest tightness and shortness of breath and he had mild increased work of breathing with tachypnea. Based on this finding I felt that his symptoms are most likely lung related but because of his previous cardiac stents a basic cardiac work-up was obtained. Patient's white count is normal his initial troponin is normal at 7 proBNP is also negative and electrolytes show no clinically significant findings. He was given albuterol and DuoNeb and Solu-Medrol. After this treatment his work of breathing resolved his lung sounds improved. 2 view chest x-ray revealed no acute infiltrate. There is no widening of the mediastinum to suggest tear of his known aortic aneurysm. On reevaluation he reports feeling better. Therefore at this time once his delta troponin is resulted and displays no clinically significant variation from the first he will be safe for discharge with symptomatic care Lab Data Attestation: I reviewed the patient's lab results. Labs: Laboratory Results - last 24 hr 02/23/22 02/23/22 02/23/22 05:28 05:28 05:28 WBC 8.7 RBC 4.65 Hgb 14.5 Hct 44.8 MCV 96.3 H MCH 31.2 MCHC 32.4 RDW Std Deviation 49.1 H RDW Coeff of Frank 13.8 Plt Count 224 MPV 10.0 Immature Gran % (Auto) 1.100 H Neut % (Auto) 63.8 Lymph % (Auto) 23.2 Forrest % (Auto) 7.8 Eos % (Auto) 3.2 Baso % (Auto) 0.9 Absolute Neuts (auto) 5.5 Absolute Lymphs (auto) 2.02 Nucleated RBC % 0 Sodium 140 Potassium 4.4 Chloride 105 Carbon Dioxide 30.0 Anion Gap 5 BUN 23 H Creatinine 1.06 Estim Creat Clear Calc 73.18 Est GFR (MDRD) Af Amer 91 Est GFR (MDRD) Non-Af 75 BUN/Creatinine Ratio 21.7 H Glucose 134 H Calcium 9.4 Magnesium 2.1 Troponin I High Sens 7 B-Natriuretic Peptide 22.3 Radiography Diagnostic Testing: Clinical Impression(s) from Imaging Studies Chest X-Ray 02/23/22 05:46 IMPRESSION: Normal x-ray examination of the chest. Electronically Signed: Jonah Andres MD at 6:41 EDT Reading Location ID and State: [facility] / [place] Tel , Service support , 2 view chest x-ray as interpreted by the emergency medicine physician reveals no obvious infiltrate pneumothorax or pleural effusion Discharge Plan Triage Chief Complaint: Chest Pain ED Provider: Carlito Moon Dx/Rx/DC Orders Clinical Impression: Dyspnea, Acute bronchospasm, Obstructive sleep apnea, HTN (hypertension), Diabetes mellitus, type II Instructions: ED Bronchospasm (Adult), ED COPD Flare Prescriptions: New albuterol sulfate [Ventolin HFA] 90 mcg/actuation HFA aerosol inhaler 2 puff inhalation Q4H PRN PRN (Reason: Wheezing) Qty: 8.5 0RF benzonatate 200 mg capsule 200 mg PO TID PRN (Reason: cough) 7 Days Qty: 21 0RF prednisone 20 mg tablet 40 mg PO DAILY 5 Days Qty: 10 0RF No Action coenzyme Q10 [Co Q-10] 200 mg capsule 200 mg PO DAILY magnesium oxide 250 mg magnesium tablet 250 mg PO DAILY atorvastatin 80 mg tablet 80 mg PO DAILY pyridoxine (vitamin B6) 50 mg capsule 50 mg capsule 50 mg PO DAILY ascorbic acid (vitamin C) 500 mg capsule, extended release 500 mg PO DAILY carvedilol 6.25 mg tablet 12.5 mg PO BID Ozempic 0.25 mg or 0.5 mg(2 mg/1.5 mL) pen injector 0.25 mg subcut QWEEK acetaminophen 325 MG tablet 650 mg PO Q6H PRN PRN (Reason: Mild Pain (0-2/10)) 0RF aspirin 81 MG tablet 81 mg PO DAILY@0800 0RF metformin 500 mg tablet extended release 24 hr 1,000 mg PO DAILY clopidogrel 75 mg tablet 75 mg PO DAILY Qty: 90 3RF losartan 25 mg tablet 25 mg PO BID Qty: 180 3RF Primary Care Provider: Sandhya Priest Referrals: Sandhya Priest MD [Primary Care Provider] - Activity Restrictions/Additional Instructions: Please return to the ER if you have worsening of symptoms or any further concerns Disposition Disposition: Home, Self Care
[2022-02-23 07:36] VITALS: BP 137/88; PULSE 75; RESP 16; O2SAT 97
[2022-02-23 08:20] LABS: Troponin-I HS 7 pg/mL (3.0-78.0)
[2022-02-23 08:47] VITALS: BP 126/76; PULSE 68; RESP 21; O2SAT 93
== END 2022-02-23 08:54 | disposition home or self-care (01) ==
PROVIDERS: Emergency Provider Emergency Medicine; PCP Internal Medicine; Visit Provider Emergency Medicine
DX: J98.01 Acute bronchospasm (principal); E11.9 Type 2 diabetes mellitus without complications; R06.00 Dyspnea, unspecified; G47.33 Obstructive sleep apnea (adult) (pediatric); E78.5 Hyperlipidemia, unspecified; I10 Essential (primary) hypertension; I25.10 Atherosclerotic heart disease of native coronary artery without angina pectoris; Z87.891 Personal history of nicotine dependence; Z95.5 Presence of coronary angioplasty implant and graft; I25.2 Old myocardial infarction
CPT/HCPCS: 36415; 71046; 80048; 83735; 83880; 84484; 85025; 93005; 94640; 99251; 99282; A4216; G0463

== ENCOUNTER 2022-04-08 16:09 | Emergency (ER) | payer BC, SELFPAY ==
[2022-04-08 16:10] VITALS: BP 133/84; PULSE 86; RESP 16; TEMP 36.9; O2SAT 95; BMI 42.1
--- NOTE | 2022-04-08 17:26 | ED.VIS.CHEST ---
HPI History of Present Illness Chief Complaint: Chest Pain Detail of Chief Complaint: With accelerated heart rate. Both have resolved. Currently no chest pain. Informant: patient and family Onset/Context/Timing Onset: Today and Hours Activity at onset: gradual Quality: Positive for Aching and Heaviness Location: Left Chest Current Severity: Gone Maximum Severity: Mild Worsened By: Nothing Relieved By: Nothing Associated Symptoms: Positive for Palpitations; Negative for Nausea, Vomiting, Diaphoresis, Dyspnea, Cough, Fever, Lightheadedness or Acid Reflux Narrative Narrative: 61 year old male history of AAA, TN, CAD, A. fib and SVT. Diabetes. On Plavix. States around 4:00 he was sitting at home and elevated heart rate. Developed left-sided chest heaviness that is since resolved as has accelerated heart rate. He was brought in by squad. Currently states he is symptom-free. No chest pain. No palpitations accelerated heart rate. No shortness of breath. Prior history of SVT. Prior Similar Symptoms: Yes Recent Illness/Hospitalization: No CVD Risk Factors: Positive for Hypertension and Diabetes; Negative for Smoking PE Risk Factors: Negative for Recent Travel/Surgery, Recent Immobilization, Prior DVT or PE, Cancer or OCP + Smoking + >/=35 TAD Risk Factors: Negative for Marfan's Syndrome [facility] Medical History Abdominal aortic aneurysm Abdominal aortic aneurysm without rupture Atherosclerotic heart disease of [place] coronary artery without angina pectoris Chest pain Diabetes mellitus, type II Essential hypertension History of non-ST elevation myocardial infarction (NSTEMI) (09/24/18) History of supraventricular tachycardia HLD (hyperlipidemia) HTN (hypertension) NSTEMI (non-ST elevated myocardial infarction) Obesity (BMI 30-39.9) Obstructive sleep apnea Tobacco abuse Home Medications acetaminophen 325 mg tablet 650 mg PO Q6H PRN PRN Mild Pain (0-2/10) 09/25/18 [Rx Last Taken Unknown] aspirin 81 mg tablet,delayed release 81 mg PO DAILY@0800 09/25/18 [Rx Last Taken Unknown] coenzyme Q10 200 mg capsule (Co Q-10) 200 mg PO DAILY 10/11/18 [History Last Taken Unknown] magnesium oxide 250 mg PO DAILY 10/11/18 [History Last Taken Unknown] metformin 500 mg tablet,extended release 24 hr 1,000 mg PO DAILY 10/11/18 [History Last Taken Unknown] atorvastatin 80 mg tablet 80 mg PO DAILY 05/16/19 [History Last Taken Unknown] ascorbic acid (vitamin C) 500 mg capsule,extended release 500 mg PO DAILY 11/13/19 [History Last Taken Unknown] pyridoxine (vitamin B6) 50 mg capsule (Vitamin B-6) 50 mg PO DAILY 11/13/19 [History Last Taken Unknown] carvedilol 6.25 mg tablet 12.5 mg PO BID 03/18/21 [History Last Taken Unknown] clopidogrel 75 mg tablet 75 mg PO DAILY #90 tabs 09/09/21 [Rx Last Taken Unknown] losartan 25 mg tablet 25 mg PO BID #180 tabs 11/22/21 [Rx Last Taken Unknown] semaglutide 0.25 mg or 0.5 mg (2 mg/1.5 mL) subcutaneous pen injector (Ozempic) 0.25 mg subcut QWEEK 01/24/22 [History Last Taken Unknown] albuterol sulfate 90 mcg/actuation aerosol inhaler (Ventolin HFA) 2 puff inhalation Q4H PRN PRN Wheezing #8.5 grams 02/23/22 [Rx Last Taken Unknown] pantoprazole 40 mg tablet,delayed release 40 mg PO DAILY 03/31/22 [History Last Taken Unknown] Allergy/AdvReac Type Severity Reaction Status Date / Time rosuvastatin [From Crestor] AdvReac Severe Severe Verified 04/08/22 16:10 myalgias (legs) codeine AdvReac Other Verified 04/08/22 16:10 Family History Mother Heart disease Pacemaker Father Stomach cancer Liver cancer Surgical History History of appendectomy History of thumb surgery Social History Smoking Status: Former smoker quit date: 09/24/18 pack-years: 40 alcohol intake: current alcohol intake frequency: 0-2 drinks per day Alcohol type: beer caffeine: No ROS ROS ED ROS Narrative Denies recent illness. Chest pain now resolved. Accelerated heart rate now resolved. Review of Systems ROS Unobtainable: Denies due to encephalopathy Constitutional Constitutional ED: Denies chills or fever(s) Eyes Eyes: Denies none ENT ENT ED: Denies ear pain Cardiovascular Cardiovascular: Reports as per HPI, chest pain, palpitations and racing heartbeat Respiratory/Chest Respiratory/Chest: Denies cough or dyspnea Gastrointestinal Gastrointestinal: Denies abdominal pain Genitourinary Genitourinary ED: Denies dysuria Musculoskeletal Musculoskeletal: Denies arthralgias Integumentary Denies abscess Neurologic Neurologic: Denies headache(s) Psychiatric Psychiatric: Denies anxiety Endocrine Endocrinology: Denies cold intolerance Hematologic/Lymphatic Hematologic/Lymphatic: Denies easy bleeding Allergic/Immunologic Allergic/Immunologic ED: Denies mouth swelling or tongue swelling EXAM Physical Exam Narrative Exam Narrative: 61-year-old male no acute distress. Currently pain-free and symptom-free. Vital signs heart rate 86 sinus rhythm on the monitor. Pulse ox 95% on room air no hypoxia. H EENT exam unremarkable. Lungs clear. Chest wall nontender. Heart regular rate and rhythm rate about 85 no murmur. Abdomen soft nontender. Moving all 4 extremities. Calves are nontender without edema or cords. Equal symmetrical radial pulses. Neurologic exam awake alert with no focal motor deficits. Const Vital Signs: 04/08/22 16:10 04/08/22 16:13 04/08/22 17:35 Temperature 98.5 F Temperature Source Oral Pulse Rate 86 78 Respiratory Rate 16 16 Respiratory Effort Normal Non-Labored Blood Pressure 133/84 H 164/89 H Blood Pressure Mean 100 114 Pulse Ox 95 97 Oxygen Delivery Method Room Air Room Air 04/08/22 18:01 04/08/22 18:01 04/08/22 19:23 Temperature Temperature Source Pulse Rate 79 71 Respiratory Rate 18 10 L Respiratory Effort Blood Pressure 125/72 H 113/69 Blood Pressure Mean 89 83 Pulse Ox 96 98 95 Oxygen Delivery Method Room Air Room Air Room Air Positive well nourished, well developed and obese; Negative for cachectic, contractures or unkempt General Appearance ED: well developed and NAD; Negative for unkempt, cachectic, contractures or pallor Nutritional Appearance: obese; Negative for cachectic HEENT Reports moist mucous membranes normocephalic and atraumatic; Negative for trauma or tenderness Eyes PERRL and EOMs intact bilaterally General Eye ED: Negative for pale conjunctiva or scleral icterus Neck no lymphadenopathy, supple and no JVD General: Negative for tenderness Chest Wall inspection of chest normal and palpation of chest normal Chest: Negative for tenderness Resp normal respiratory effort Effort and Inspection: Negative for respiratory distress Auscultation: Negative for rales, rhonchi or wheezes Cardio regular rate, regular rhythm, S1 normal heart sound, S2 normal heart sound and no murmurs Rate: Negative for bradycardia or tachycardic Rhythm: Negative for abnormal rhythm Peripheral Pulses: pulses 2+ throughout GI normal to inspection, nondistended, normoactive bowel sounds, soft to palpation, non-tender, non-distended and no masses Auscultation: Negative for hyperactive bowel sounds Back/Spine no CVA tenderness and no thoracic nor lumbar tenderness General Back: Negative for CVA tenderness Cervical Spine: Negative for cervical spine tenderness Extremity normal to inspection General Extremety ED: Negative for edema or pulses abnormal General Extremity: Negative for edema or pulses abnormal Neuro oriented x3 and CN's II-XII intact bilaterally Sensorium / Orientation: awake, alert, oriented to person, oriented to place and oriented to time; Negative for confused, lethargic, stuporous or other Psych mental status grossly normal Appearance: Negative for unkempt Attitude: No agitated Mood & Affect: Negative for depressed, anxious or tearful Skin no rashes or lesions noted and no wounds General Skin Exam: Negative for jaundice or pallor Rashes: No rashes noted Trauma: Negative for abrasion or laceration Heart Score History: Slightly/Non-Suspicious ECG: Normal Age: >45 - <65 years Risk Factors: >/= 3 Risk Factors or History of CAD Troponin: </= Normal Limit Score: 3 MDM MDM MDM Narrative Medical decision making narrative: 61-year-old male history of CAD with prior TN. He is also diabetic. Today had accelerated heart rate at rest with chest discomfort. Both of since resolved. Exam benign. Undergo a cardiac work-up. Patient doing well at both 1950 and 20 10 PM. No further symptoms in the emergency department. We discussed his test results. He and family are comfortable with him being discharged home. Lab Data Attestation: I reviewed the patient's lab results. Lab results narrative: CBC normal white count 7.8 H&H of 13.4 and 41. Platelets 233. Electrolytes unremarkable gap of 7 normal BUN and creatinine. Glucose 139. Troponin 16. Chest x-ray negative. Chronic changes. Second troponin returned was 52. 2 hours after the first. Labs: Laboratory Results - last 24 hr 04/08/22 04/08/22 04/08/22 16:10 16:10 19:13 WBC 7.8 RBC 4.31 L Hgb 13.4 Hct 41.4 MCV 96.1 H MCH 31.1 MCHC 32.4 RDW Std Deviation 48.4 H RDW Coeff of Frank 13.6 Plt Count 233 MPV 10.2 Immature Gran % (Auto) 1.400 H Neut % (Auto) 54.0 Lymph % (Auto) 31.4 Bryan % (Auto) 9.0 Eos % (Auto) 2.8 Baso % (Auto) 1.4 H Absolute Neuts (auto) 4.2 Absolute Lymphs (auto) 2.44 Nucleated RBC % 0 Sodium 139 Potassium 3.7 Chloride 103 Carbon Dioxide 29.0 Anion Gap 7 BUN 18 Creatinine 0.96 Estim Creat Clear Calc 80.81 Est GFR (MDRD) Af Amer 102 Est GFR (MDRD) Non-Af 84 BUN/Creatinine Ratio 18.7 Glucose 139 H Calcium 9.2 Troponin I High Sens 16 52 Radiography Chest X-Ray - ED: 1 View, Read by ED Physician, Read by Radiologist, Heart, Lungs, Mediastinum, Bony Structures, No Acute Disease and Chronic Changes Diagnostic Testing: Clinical Impression(s) from Imaging Studies Chest X-Ray 04/08/22 18:00 IMPRESSION: Normal x-ray examination of the chest. Electronically Signed: Evan Ibanez MD at 18:17 EST Reading Location ID and State: [address] [place] [address] , Service support , Chest x-ray, portable, single view interpreted both by myself and radiologist shows no acute abnormality. Normal cardiac silhouette. Rhythm Strip Rhythm Strip: Sinus Rhythm Rate: 86 Ectopy: None EKG Initial EKG: Attestation: I personally reviewed and interpreted this EKG as follows: Interpretation: Sinus Rhythm and No Acute Injury Pattern Comments: Normal sinus rhythm rate 86 no acute signs of TN nor ischemia. Discharge Plan Triage Chief Complaint: Chest Pain ED Provider: Torito Agrawal Dx/Rx/DC Orders Clinical Impression: Heart palpitations, Chest pain, History of atrial fibrillation, History of TN (myocardial infarction) Instructions: ED Chest Pain, Uncertain Cause Prescriptions: No Action coenzyme Q10 [Co Q-10] 200 mg capsule 200 mg PO DAILY magnesium oxide 250 mg magnesium tablet 250 mg PO DAILY atorvastatin 80 mg tablet 80 mg PO DAILY pyridoxine (vitamin B6) 50 mg capsule 50 mg capsule 50 mg PO DAILY ascorbic acid (vitamin C) 500 mg capsule, extended release 500 mg PO DAILY carvedilol 6.25 mg tablet 12.5 mg PO BID Ozempic 0.25 mg or 0.5 mg(2 mg/1.5 mL) pen injector 0.25 mg subcut QWEEK pantoprazole 40 mg tablet,delayed release (DR/EC) 40 mg PO DAILY acetaminophen 325 MG tablet 650 mg PO Q6H PRN PRN (Reason: Mild Pain (0-210)) 0RF aspirin 81 MG tablet 81 mg PO DAILY@0800 0RF metformin 500 mg tablet extended release 24 hr 1,000 mg PO DAILY albuterol sulfate [Ventolin HFA] 90 mcg/actuation HFA aerosol inhaler 2 puff inhalation Q4H PRN PRN (Reason: Wheezing) Qty: 8.5 0RF clopidogrel 75 mg tablet 75 mg PO DAILY Qty: 90 3RF losartan 25 mg tablet 25 mg PO BID Qty: 180 3RF Primary Care Provider: Sandhya Priest Referrals: Sandhya Priest MD [Primary Care Provider] - 3-5 Days Activity Restrictions/Additional Instructions: Your labs, EKG and chest x-ray were unremarkable tonight. Follow-up with your primary care physician. Return to the emergency department if you are having recurrent chest pain or feeling worse. Disposition Disposition: Home, Self Care
[2022-04-08 17:35] VITALS: BP 164/89; PULSE 78; RESP 16; O2SAT 97
--- NOTE | 2022-04-08 17:56 | EKG12_ITS ---
Test Reason : CP Blood Pressure : / mmHG Vent. Rate : 086 BPM Atrial Rate : 086 BPM P-R Int : 186 ms QRS Dur : 086 ms QT Int : 364 ms P-R-T Axes : 010 039 037 degrees QTc Int : 435 ms Normal sinus rhythm Normal ECG Confirmed by VILMA LONDON, PIERRE ([id number]), food expeditor STEVEN WORTHINGTON ([id number]) on 04/10/2022 11:58:54 AM Referred By: TAMARA/ENOCH Confirmed By:PIERRE ESPARZA MD
--- NOTE | 2022-04-08 18:00 | RAD_ITS ---
STUDY: X-RAY CHEST REASON FOR EXAM: Male, 61 years old. chest pain TECHNIQUE: Single frontal view of the chest. COMPARISON: February 23, 2022 FINDINGS: The lungs are clear and expanded. There is no demonstrated pleural abnormality. Normal size heart. Normal mediastinum and rachel. Normal visualized pulmonary arteries. Normal visualized aortic arch and descending thoracic aorta. Normal visualized thoracic spine. Normal visualized ribs, clavicles, and shoulders. There is no demonstrated abnormality of the visualized soft tissue structures of the upper abdomen. RAD/Chest 1 View (Portable) IMPRESSION: Normal x-ray examination of the chest. Electronically Signed: Evan Ibanez MD at 18:17 EST ,
[2022-04-08 18:01] VITALS: BP 125/72; PULSE 79; RESP 18; O2SAT 96; O2SAT 98
[2022-04-08 18:09] LABS: Absolute Lymphocyte Count 2.44 X10^3/uL (0.83-4.51); Absolute Neutrophil Count 4.2 X10^3/uL (2.0-7.7); Basophil# 0.11 X10^3/uL; Basophil% 1.4 % (0-1); Eosinophil# 0.22 X10^3/uL; Eosinophils% 2.8 % (0-5); Hematocrit 41.4 % (40-54); Hemoglobin 13.4 g/dL (13.0-16.5); Lymphocyte # 2.44 X10^3/ul (0.83-4.51); Lymphocyte % 31.4 % (19-41); Mean Corp Hgb Conc 32.4 g/dL (32-36); Mean Corpuscular Hgb 31.1 pg (27.0-32.0); Mean Corpuscular Volume 96.1 fL (80-94); Mean Platelet Vol. 10.2 fl (6.2-12.0); NRBC Flagged by Analyzer 0 % (0-5); Platelet Count 233 K/mm3 (150-450); RBC Distribution Width CV 13.6 % (11.6-14.6); RBC Distribution Width SD 48.4 fl (35.1-43.9); Red Blood Count 4.31 M/mm3 (4.6-6.2); White Blood Count 7.8 K/mm3 (4.4-11.0)
[2022-04-08 18:40] LABS: Anion Gap 7 (5-15); BUN 18 mg/dL (7-18); BUN/Creat Ratio 18.7 RATIO (10-20); Calcium,Total 9.2 mg/dL (8.5-10.1); Chloride 103 mmol/L (98-107); Creatinine, Serum 0.96 mg/dL (0.70-1.30); EST Glomerular Filtration Rate 84 mL/min (>60); Est Glom Filt Rate - Afr Amer 102 mL/min (>60); Estimated Creatinine Clearance 80.81 ml/min; Glucose 139 mg/dL (74-106); Potassium 3.7 mmol/L (3.5-5.1); Sodium Level 139 mmol/L (136-145); Troponin-I HS (w/2H Reflex) 16 pg/mL (3.0-78.0)
[2022-04-08 19:23] VITALS: BP 113/69; PULSE 71; RESP 10; O2SAT 95
[2022-04-08 20:06] LABS: Reflex Troponin-HS? (from REC) Y
[2022-04-08 20:09] LABS: Troponin-I HS 52 pg/mL (3.0-78.0)
[2022-04-08 20:41] VITALS: PULSE 71; O2SAT 97
== END 2022-04-08 20:42 | disposition home or self-care (01) ==
PROVIDERS: Emergency Provider Emergency Medicine; PCP Internal Medicine; Visit Provider Emergency Medicine
DX: R00.2 Palpitations (principal); E11.9 Type 2 diabetes mellitus without complications; R07.9 Chest pain, unspecified; I25.10 Atherosclerotic heart disease of native coronary artery without angina pectoris; E78.5 Hyperlipidemia, unspecified; I10 Essential (primary) hypertension; I25.2 Old myocardial infarction; G47.33 Obstructive sleep apnea (adult) (pediatric); E66.9 Obesity, unspecified; Z79.82 Long term (current) use of aspirin; Z79.84 Long term (current) use of oral hypoglycemic drugs; Z87.891 Personal history of nicotine dependence
CPT/HCPCS: 71045; 80048; 84484; 85025; 93005; 99285

== ENCOUNTER → 2022-04-21 | Outpatient (CLI) | payer BC, SELFPAY ==
--- NOTE | 2022-04-21 07:44 | ECHOCS_ITS ---
Reason For Study: Murmur Procedure This was a 2D Doppler, Color Flow transthoracic echocardiogram. Technically difficult study due to patient body habitus, contrast injection performed. The study was technically difficult. Contrast injection was performed. Exam performed in department. Left Ventricle Normal LV size. Left ventricular systolic function is normal. The estimated ejection fraction is 65 %. No evidence for diastolic dysfunction. No regional wall motion abnormalities noted. Right Ventricle Normal RV size. Normal systolic function. Atria Normal left atrium. Normal right atrium. No doppler evidence for ASD. Mitral Valve There is no mitral annular calcification. Mild focal mitral valve calcification of the posterior leaflet. Trivial mitral valve insufficiency. Tricuspid Valve Normal tricuspid valve. Trivial tricuspid valve insufficiency. Unable to estimate RV systolic pressure/pulmonary artery pressure due to technically difficult study. Aortic Valve Trisinus/trileaflet aortic valve. Normal aortic valve. Pulmonic Valve The pulmonic valve is not well visualized. Great Vessels Normal sized aortic root. Pericardium/Pleural No pericardial effusion. Medication 20 gauge I.V. with prn adaptor inserted into right arm. Diluted definity 4ml given slow IV push to enhance endocardial definition. MMode/2D Measurements & Calculations LVIDd: 5.2 cm IVSd: 1.2 cm Ao root diam: 3.4 cm LVIDs: 4.3 cm LVPWd: 1.2 cm LA dimension: 4.0 cm RVDd: 3.9 cm FS: 17.7 % LAV(MOD-bp): 66.8 ml LA A4 area: 21.6 cm2 RA A4 area: 17.2 cm2 LAV(MOD-bp) Indexed: 28.3 ml/m2 LAV(MOD-sp2): 69.4 ml LAV(MOD-sp4): 61.4 ml Time Measurements MV dec time: 0.22 sec Doppler Measurements & Calculations MV E max hardik: 65.1 cm/sec Lat Peak E' Hardik: 6.9 cm/sec Med Peak E' Hardik: 6.7 cm/sec MV A max hardik: 75.0 cm/sec E/E' lat: 9.5 E/E' med: 9.7 MV E/A: 0.87 MV V2 max: 82.6 cm/sec MV P1/2t max hardik: 76.9 cm/sec Ao V2 max: 156.9 cm/sec MV max P.7 mmHg MV P1/2t: 80.6 msec Ao max P.9 mmHg MV V2 mean: 45.0 cm/sec MV dec slope: 279.3 cm/sec2 Ao V2 mean: 112.0 cm/sec MV mean P.97 mmHg Ao mean P.7 mmHg MV V2 VTI: 30.9 cm MVA(P1/2t): 2.7 cm2 Ao V2 VTI: 33.4 cm LV V1 max: 141.4 cm/sec PA V2 max: 96.0 cm/sec LV V1 max P.0 mmHg ECHO/Echo Complete W/ Contrast Interpretation Summary The study was technically difficult. Contrast injection was performed. Left ventricular systolic function is normal. The estimated ejection fraction is 65 %. Mild focal mitral valve calcification of the posterior leaflet. Trivial mitral valve insufficiency. Trivial tricuspid valve insufficiency. Unable to estimate RV systolic pressure/pulmonary artery pressure due to techni niru difficult study. No evidence for diastolic dysfunction. Ordering Physician: William Lucas Performed By: Madhav Mills RCS
== END | disposition home or self-care (01) ==
LOC: CVS 07:42
PROVIDERS: PCP Internal Medicine; Visit Provider Internal Medicine Cardiovascular Disease
DX: R01.1 Cardiac murmur, unspecified (principal)
CPT/HCPCS: 93306; Q9957; A4216; C8929

== ENCOUNTER → 2022-08-22 | Outpatient (CLI) | payer BC, SELFPAY ==
--- NOTE | 2022-08-22 07:49 | ART_ITS ---
Reason For Study: PVD Procedure A bilateral lower extremity continuous wave Doppler with analog waveform analysis and ankle brachial indexes. Left Segmental Pressures Left brachial= 126mmHg. Left posterior tibial artery = 135mmHg. Left dorsalis pedis artery = 138mmHg. Left digit = 114 mmHg. The left dorsalis pedis waveforms are triphasic. The left posterior tibial artery waveforms are triphasic. Right Segmental Pressures Right brachial= 129mmHg. Right posterior tibial artery = 138mmHg. Right dorsalis pedis artery = 115mmHg. Right digit = 94 mmHg. The right dorsalis pedis waveforms are triphasic. The right posterior tibial artery waveforms are triphasic. Indices The right ankle brachial index by the dorsalis pedis is .89. The right ankle brachial index by the posterior tibial artery is 1.07. The right digital-brachial index is .73. The left ankle brachial index by the posterior tibial artery is 1.05. The left ankle brachial index by the dorsalis pedis is 1.07. The left digital-brachial index is .88. VL/Ankle Brachial Index Interpretation Summary Normal lower extremity with triphasic flow and CHARIS 1.07 and 1.07. DBI 0.73 and 0.88. Ordering Physician: Patrick Oneal Performed By: Gee Guevara RVT
--- NOTE | 2022-08-22 07:49 | AAVD_ITS ---
Reason For Study: aortic aneurysm Aorta Measurements Aorta Doppler Measurements Proximal aorta measures2.37 x 2.4cm. in cross- Peak systolic flow velocities within the proximal sectional axis. aorta measure 55.5 cm/sec. Proximal aorta measures2.18cm. in longitudinal Peak systolic flow velocities within the mid aorta axis. measure 31.3 cm/sec. Mid aorta measures4.57 x 4.37cm. in cross- Peak systolic flow velocities within the distal sectional axis. aorta measure 33.5 cm/sec. Mid aorta measures4.79cm. in longitudinal axis. Distal aorta measures4.15 x 3.93cm. in cross- sectional axis. Distal aorta measures4.33cm. in longitudinal axis. Left Iliac Artery Left iliac artery measures .94 x .84 cm. in the cross-sectional axis. Left iliac artery measures 1.03 cm. in the longitudinal axis. Peak systolic velocity in the left iliac artery measures 172.5 cm/sec. Right Iliac Artery Right iliac artery measures .8 x .76 cm. in the cross-sectional axis. Right iliac artery measures .7 cm. in the longitudinal axis. Peak systolic velocity in the right iliac artery measures 68.3 cm/sec. Procedure Aorta IVC Iliac vasculature or bypass grafts [id number]. The exam was diagnostic. Difficult study due to body habitus. Exam performed in department. VL/Abd Aortic/IVC Duplex scan Interpretation Summary 4.8cm aortic aneurysm. Ordering Physician: Patrick Oneal Performed By: Gee Guevara RVNilton
== END | disposition home or self-care (01) ==
PROVIDERS: PCP Internal Medicine; Referring Provider Surgery Vascular Surgery; Visit Provider Surgery Vascular Surgery
DX: I71.43 Infrarenal abdominal aortic aneurysm, without rupture (principal); I73.9 Peripheral vascular disease, unspecified
CPT/HCPCS: 93922; 93978

== ENCOUNTER 2022-09-24 22:06 | Emergency (ER) | payer BC, SELFPAY ==
[2022-09-24] VITALS (8 sets, daily range): BP systolic 84–133; BP diastolic 34–79; PULSE 78–151; RESP 8–21; TEMP 36.6; O2SAT 92–97; BMI 42.0
--- NOTE | 2022-09-24 22:21 | EKG12_ITS ---
Test Reason : SVT Blood Pressure : / mmHG Vent. Rate : 146 BPM Atrial Rate : 000 BPM P-R Int : 000 ms QRS Dur : 084 ms QT Int : 302 ms P-R-T Axes : 000 049 004 degrees QTc Int : 470 ms Atrial fibrillation with rapid ventricular response Abnormal ECG Confirmed by VILMA LONDON, PIERRE ([id number]), medical transcription editor STEVEN WORTHINGTON ([id number]) on 09/26/2022 10:52:19 AM Referred By: BB Confirmed By:PIERRE ESPARZA MD
--- NOTE | 2022-09-24 22:30 | EKG12_ITS ---
Test Reason : REPEAT Blood Pressure : / mmHG Vent. Rate : 080 BPM Atrial Rate : 080 BPM P-R Int : 192 ms QRS Dur : 094 ms QT Int : 392 ms P-R-T Axes : 013 047 033 degrees QTc Int : 452 ms Normal sinus rhythm Normal ECG Confirmed by PIERRE ESPARZA MD ([id number]), video news editor STEVEN WORTHINGTON ([id number]) on 09/26/2022 10:52:31 AM Referred By: Confirmed By:PIERRE ESPARZA MD
--- NOTE | 2022-09-24 22:30 | ED.VIS.CHEST ---
HPI History of Present Illness Chief Complaint: Chest Pain Informant: patient and spouse/S.O. Onset/Context/Timing Onset: Hours (1) Activity at onset: sudden, onset, activity on onset and sleep Timing: Continuous Quality: Positive for Tightness Location: Substernal (Without radiation) Current Severity: Moderate Worsened By: Nothing Relieved By: Nothing Associated Symptoms: Positive for Palpitations; Negative for Nausea, Vomiting, Diaphoresis, Dyspnea, Cough or Lightheadedness Narrative Narrative: Patient was awakened out of his sleep about an hour prior to arrival with pounding racing heartbeat and chest tightness simultaneously. Has persisted since although he states that the pounding is less prominent now. No lightheadedness or syncope. No dyspnea. No recent illness, he states he ate a late dinner and went to bed and woke up an hour later with this, and that was an hour ago. Was working in the yard earlier today, was an otherwise uneventful day. Has a history of paroxysmal atrial fibrillation, states it has felt like this in the past, he has never been in atrial fibrillation and been asymptomatic to his knowledge. He states this does not happen very often, the last time it did he cannot remember, but it was more than a couple years ago. He is compliant with his medications which include aspirin and clopidogrel. He follows with the acquisition editor here although the one he was seen recently retired and he has not seen one of the new ones yet. [facility] Medical History Abdominal aortic aneurysm Abdominal aortic aneurysm without rupture Atherosclerotic heart disease of [place] coronary artery without angina pectoris Chest pain Diabetes mellitus, type II Essential hypertension History of non-ST elevation myocardial infarction (NSTEMI) (09/24/18) History of supraventricular tachycardia HLD (hyperlipidemia) HTN (hypertension) NSTEMI (non-ST elevated myocardial infarction) Obesity (BMI 30-39.9) Obstructive sleep apnea Tobacco abuse Home Medications acetaminophen 325 mg tablet 650 mg PO Q6H PRN PRN Mild Pain (0-2/10) 09/25/18 [Rx Last Taken Unknown] aspirin 81 mg tablet,delayed release 81 mg PO DAILY@0800 09/25/18 [Rx Last Taken Unknown] coenzyme Q10 200 mg capsule (Co Q-10) 200 mg PO DAILY 10/11/18 [History Last Taken Unknown] magnesium oxide 250 mg PO DAILY 10/11/18 [History Last Taken Unknown] metformin 500 mg tablet,extended release 24 hr 1,000 mg PO DAILY 10/11/18 [History Last Taken Unknown] atorvastatin 80 mg tablet 80 mg PO DAILY 05/16/19 [History Last Taken Unknown] ascorbic acid (vitamin C) 500 mg capsule,extended release 500 mg PO DAILY 11/13/19 [History Last Taken Unknown] pyridoxine (vitamin B6) 50 mg capsule (Vitamin B-6) 50 mg PO DAILY 11/13/19 [History Last Taken Unknown] carvedilol 6.25 mg tablet 12.5 mg PO BID 03/18/21 [History Last Taken Unknown] losartan 25 mg tablet 25 mg PO BID #180 tabs 11/22/21 [Rx Last Taken Unknown] semaglutide 0.25 mg or 0.5 mg (2 mg/1.5 mL) subcutaneous pen injector (Ozempic) 0.25 mg subcut TURNER 01/24/22 [History Last Taken Unknown] albuterol sulfate 90 mcg/actuation aerosol inhaler (Ventolin HFA) 2 puff inhalation Q4H PRN PRN Wheezing #8.5 grams 02/23/22 [Rx Last Taken Unknown] pantoprazole 40 mg tablet,delayed release 40 mg PO DAILY 03/31/22 [History Last Taken Unknown] Allergy/AdvReac Type Severity Reaction Status Date / Time rosuvastatin [From Crestor] AdvReac Severe Severe Verified 09/24/22 22:17 myalgias (legs) codeine AdvReac Other Verified 09/24/22 22:17 Family History Mother Heart disease Pacemaker Father Stomach cancer Liver cancer Surgical History History of appendectomy History of thumb surgery Social History Smoking Status: Former smoker quit date: 09/24/18 pack-years: 40 alcohol intake: current alcohol intake frequency: 0-2 drinks per day Alcohol type: beer caffeine: No ROS ROS ED Constitutional Constitutional ED: Reports malaise; Denies chills or fever(s) Eyes Eyes: Denies change in vision or diplopia ENT ENT ED: Denies rhinorrhea or sore throat Cardiovascular Cardiovascular: Reports chest pain, palpitations and racing heartbeat; Denies lightheadedness or syncope Respiratory/Chest Respiratory/Chest: Denies cough or dyspnea Gastrointestinal Gastrointestinal: Denies abdominal pain, diarrhea, nausea or vomiting Genitourinary Genitourinary ED: Denies dysuria or hematuria Musculoskeletal Musculoskeletal: Denies back pain or neck pain Integumentary Denies abscess or rash Neurologic Neurologic: Denies headache(s), paresthesias or weakness Psychiatric Psychiatric: Denies anxiety or suicidal thoughts EXAM Physical Exam Const Vital Signs: 09/24/22 22:07 09/24/22 22:12 09/24/22 22:14 Temperature 98 F Temperature Source Temporal Pulse Rate 151 H 143 H Pulse Rate [1 (Initial Baseline)] Pulse Rate [2] Pulse Rate [3] Respiratory Rate 19 H 19 H Respiratory Rate [1 (Initial Baseline)] Respiratory Rate [2] Respiratory Rate [3] Respiratory Effort Normal Non-Labored Respiratory Pattern Normal Blood Pressure 86/49 L Blood Pressure [1 (Initial Baseline)] Blood Pressure [2] Blood Pressure [3] Blood Pressure Mean 61 Pulse Ox 93 94 Oxygen Delivery Method Nasal Cannula Room Air Oxygen Delivery Method [1 (Initial Baseline)] Oxygen Delivery Method [2] Oxygen Delivery Method [3] Oxygen Flow Rate (L/min) 2 09/24/22 22:17 09/24/22 22:42 09/24/22 22:35 Temperature Temperature Source Pulse Rate 130 H 136 H Pulse Rate [1 (Initial Baseline)] Pulse Rate [2] Pulse Rate [3] Respiratory Rate 13 8 L Respiratory Rate [1 (Initial Baseline)] Respiratory Rate [2] Respiratory Rate [3] Respiratory Effort Respiratory Pattern Blood Pressure 92/68 95/77 Blood Pressure [1 (Initial Baseline)] Blood Pressure [2] Blood Pressure [3] Blood Pressure Mean 76 Pulse Ox 93 94 Oxygen Delivery Method Nasal Cannula Nasal Cannula Room Air Oxygen Delivery Method [1 (Initial Baseline)] Oxygen Delivery Method [2] Oxygen Delivery Method [3] Oxygen Flow Rate (L/min) 2 6 6 09/24/22 22:44 09/24/22 22:44 09/24/22 22:50 Temperature Temperature Source Pulse Rate 78 Pulse Rate [1 (Initial Baseline)] 145 H Pulse Rate [2] 93 Pulse Rate [3] 84 Respiratory Rate 15 Respiratory Rate [1 (Initial Baseline)] 12 Respiratory Rate [2] 21 H Respiratory Rate [3] 20 H Respiratory Effort Respiratory Pattern Blood Pressure 116/79 Blood Pressure [1 (Initial Baseline)] 95/77 Blood Pressure [2] 84/34 L Blood Pressure [3] 133/78 H Blood Pressure Mean 91 Pulse Ox 92 Oxygen Delivery Method Nasal Cannula Nasal Cannula Oxygen Delivery Method [1 (Initial Baseline)] Nasal Cannula Oxygen Delivery Method [2] Nasal Cannula Oxygen Delivery Method [3] Non-Rebreather Oxygen Flow Rate (L/min) 4 4 09/24/22 22:54 09/24/22 23:00 09/25/22 00:00 Temperature Temperature Source Pulse Rate 79 79 70 Pulse Rate [1 (Initial Baseline)] Pulse Rate [2] Pulse Rate [3] Respiratory Rate 12 16 15 Respiratory Rate [1 (Initial Baseline)] Respiratory Rate [2] Respiratory Rate [3] Respiratory Effort Respiratory Pattern Blood Pressure 107/79 91/67 121/59 H Blood Pressure [1 (Initial Baseline)] Blood Pressure [2] Blood Pressure [3] Blood Pressure Mean 88 75 79 Pulse Ox 93 94 92 Oxygen Delivery Method Nasal Cannula Nasal Cannula Nasal Cannula Oxygen Delivery Method [1 (Initial Baseline)] Oxygen Delivery Method [2] Oxygen Delivery Method [3] Oxygen Flow Rate (L/min) 4 3 2 09/25/22 01:00 Temperature Temperature Source Pulse Rate 64 Pulse Rate [1 (Initial Baseline)] Pulse Rate [2] Pulse Rate [3] Respiratory Rate 15 Respiratory Rate [1 (Initial Baseline)] Respiratory Rate [2] Respiratory Rate [3] Respiratory Effort Respiratory Pattern Blood Pressure 107/64 Blood Pressure [1 (Initial Baseline)] Blood Pressure [2] Blood Pressure [3] Blood Pressure Mean 78 Pulse Ox 94 Oxygen Delivery Method Nasal Cannula Oxygen Delivery Method [1 (Initial Baseline)] Oxygen Delivery Method [2] Oxygen Delivery Method [3] Oxygen Flow Rate (L/min) 2 Positive well nourished and well developed General Appearance ED: well developed and NAD HEENT Reports moist mucous membranes normocephalic and atraumatic Eyes PERRL and EOMs intact bilaterally Neck full ROM and supple Resp normal respiratory effort and clear to auscultation bilaterally Cardio no murmurs Rate: tachycardic Rhythm: abnormal rhythm irregularly irregular GI non-tender and non-distended Auscultation: normoactive bowel sounds Palpation: soft Back/Spine no CVA tenderness General Back: other FROM Extremity normal to inspection General Extremety ED: Negative for edema, pulses abnormal or tenderness General Extremity: Negative for edema or pulses abnormal Neuro oriented x3, CN's II-XII intact bilaterally and no sensory deficits noted Sensorium / Orientation: awake and alert Motor Exam: strength 5/5 throughout Skin no rashes or lesions noted and no wounds MDM MDM MDM Narrative Medical decision making narrative: Patient presents awake, he appears to not feel well, he is in atrial fibrillation that is racing in the 140s, and he is hypotensive. Since this just started, electrocardioversion is indicated and recommended by myself. I discussed the risk and benefits with him and his family, give them a chance to ask any questions, the only relative issue here is that he last ate about 2.5 hours ago, so I am pretreating him with Zofran, but I think that the benefits of cardioverting him outweigh the risks given that he is hypotensive. He understands and is amenable to this, family is on board as well. Cardioversion successful see the procedure note. Subsequently patient was observed for couple hours, the initial troponin was 12 and the 2-hour delta was 16 for a delta of 4, this qualifies as negative, and the patient is stable for discharge. He has had no more chest discomfort. He does have a history of sleep apnea and he has had some hypoxemia but immediately reverses upon waking up, and has had no further ectopy or dysrhythmias or symptoms. Given all of this, my suspicion is that his chest tightness was a result of his RVR as opposed to unstable angina causing his dysrhythmia. Advised to follow-up closely with cardiology, he has an appointment with Cesar tate on 10/12 which is 2 weeks away, I advised calling to see if they can move that up, and he and are comfortable with that plan. Lab Data Attestation: I reviewed the patient's lab results. Labs: Laboratory Results - last 24 hr 09/24/22 09/24/22 09/25/22 22:13 22:13 00:05 WBC 7.0 RBC 4.61 Hgb 14.2 Hct 43.4 MCV 94.1 H MCH 30.8 MCHC 32.7 RDW Std Deviation 46.2 H RDW Coeff of Frank 13.4 Plt Count 215 MPV 9.6 Immature Gran % (Auto) 0.400 Neut % (Auto) 55.0 Lymph % (Auto) 30.2 Wilson % (Auto) 9.3 Eos % (Auto) 4.1 Baso % (Auto) 1.0 Absolute Neuts (auto) 3.9 Absolute Lymphs (auto) 2.12 Nucleated RBC % 0 Sodium 139 Potassium 3.5 Chloride 101 Carbon Dioxide 29.0 Anion Gap 9 BUN 15 Creatinine 1.02 Estim Creat Clear Calc 75.09 Est GFR (MDRD) Af Amer 95 Est GFR (MDRD) Non-Af 79 BUN/Creatinine Ratio 14.7 Glucose 132 H Calcium 8.8 Troponin I High Sens 12 16 Radiography Chest X-Ray - ED: 1 View, Read by ED Physician, Normal, Heart, Lungs, Mediastinum and No Acute Disease Diagnostic Testing: Clinical Impression(s) from Imaging Studies Chest X-Ray 09/24/22 22:55 IMPRESSION: No acute cardiopulmonary disease. Cardiomediastinal contours are slightly increased in size compared to the prior. Electronically Signed: Delmer Toledo MD at 23:25 EDT , Rhythm Strip Rhythm Strip: A-fib Rate: 145 Ectopy: None EKG Initial EKG: Attestation: I personally reviewed and interpreted this EKG as follows: Interpretation: No Acute Injury Pattern, Atrial Fibrillation and Non-Specific ST Changes Prior EKG tracings: available for review Prior: Changed (Morphology is the same, but the rhythm is different; sinus rhythm on prior EKG 04/08/2022) Follow-up EKG: Attestation: I personally reviewed and interpreted this EKG as follows: Interpretation: Sinus Rhythm and No Acute Injury Pattern Comments: Post-cardioversion. Normal EKG, no acute ischemic abnormalities. Procedures Other Procedures Procedure(s): Electrocardioversion: After discussing pros and cons and obtaining consent from the patient and his family, patient was pretreated with fentanyl 50 mcg and Zofran 4 mg, followed by etomidate 10 mg, which was felt to be the least risky due to its quicker on and off times than midazolam, and propofol not indicated due to his hypotension. With sedation, synchronized biphasic cardioversion at 200 J was performed and successful after the first attempt. This resulted in immediate bilateral upper extremity myoclonus and he was diaphoretic, but his pulse immediately went from the 140s to the 90s and remained there, but his myoclonus limited our ability to reliably check blood pressure and pulse oximetry, we turned the oxygen up on the nasal cannula, and put him on a facemask to be cautious. When the myoclonus stopped, his blood pressure was reading 130s systolic, and pulse oximetry in the high 90s. Repeat EKG shows normal sinus rhythm without any ischemic abnormalities and he monitored until complete recovery. There were no complications and he tolerated this procedure well. Critical Care Time Critical Care Time: Yes Critical care time (excluding procedures): 30-74 minutes (35 minutes not including procedure time), Including time spent:, Discussing w/Patient &/or Family/Security Control Room Officer and Performing Direct Patient Care at Bedside Discharge Plan Triage Chief Complaint: Chest Pain ED Provider: Aleksandar Keating Dx/Rx/DC Orders Clinical Impression: Atrial fibrillation with rapid ventricular response, Chest pain Instructions: AFib Dc Prescriptions: No Action coenzyme Q10 [Co Q-10] 200 mg capsule 200 mg PO DAILY magnesium oxide 250 mg magnesium tablet 250 mg PO DAILY atorvastatin 80 mg tablet 80 mg PO DAILY pyridoxine (vitamin B6) 50 mg capsule 50 mg capsule 50 mg PO DAILY ascorbic acid (vitamin C) 500 mg capsule, extended release 500 mg PO DAILY carvedilol 6.25 mg tablet 12.5 mg PO BID Ozempic 0.25 mg or 0.5 mg(2 mg/1.5 mL) pen injector 0.25 mg subcut TURNER pantoprazole 40 mg tablet,delayed release (DR/EC) 40 mg PO DAILY acetaminophen 325 MG tablet 650 mg PO Q6H PRN PRN (Reason: Mild Pain (0-2/10)) 0RF aspirin 81 MG tablet 81 mg PO DAILY@0800 0RF metformin 500 mg tablet extended release 24 hr 1,000 mg PO DAILY albuterol sulfate [Ventolin HFA] 90 mcg/actuation HFA aerosol inhaler 2 puff inhalation Q4H PRN PRN (Reason: Wheezing) Qty: 8.5 0RF losartan 25 mg tablet 25 mg PO BID Qty: 180 3RF Primary Care Provider: Sandhya Priest Referrals: Sandhya Priest MD [Primary Care Provider] - Cesar Tate ENDODONTICS DENTIST, ENDODONTICS DENTIST-C [Med Staff - [facility] Practice Prof] - As soon as possible (Or any available acquisition editor, call to see if they can move your 10/12 appointment up sooner. Any recurrent symptoms return to the ER in the meantime.) Disposition Disposition: Home, Self Care
[2022-09-24] MEDS: Ondansetron 4 MG/2 ML Vial IV (22:31)
[2022-09-24] MEDS: fentaNYL 100 MCG/2 ML Ampul 50 MCG IV (22:32)
[2022-09-24 22:33] LABS: Absolute Lymphocyte Count 2.12 X10^3/uL (0.83-4.51); Absolute Neutrophil Count 3.9 X10^3/uL (2.0-7.7); Basophil# 0.07 X10^3/uL; Eosinophil# 0.29 X10^3/uL; Eosinophils% 4.1 % (0-5); Hematocrit 43.4 % (40-54); Hemoglobin 14.2 g/dL (13.0-16.5); Lymphocyte # 2.12 X10^3/ul (0.83-4.51); Lymphocyte % 30.2 % (19-41); Mean Corp Hgb Conc 32.7 g/dL (32-36); Mean Corpuscular Hgb 30.8 pg (27.0-32.0); Mean Corpuscular Volume 94.1 fL (80-94); Mean Platelet Vol. 9.6 fl (6.2-12.0); Monocyte# 0.65 X10^3/uL; Monocyte% 9.3 % (0-10); NRBC Flagged by Analyzer 0 % (0-5); Neutrophil # 3.86 X10^3/uL (2.7-7.7); Platelet Count 215 K/mm3 (150-450); RBC Distribution Width CV 13.4 % (11.6-14.6); RBC Distribution Width SD 46.2 fl (35.1-43.9); Red Blood Count 4.61 M/mm3 (4.6-6.2)
[2022-09-24] MEDS: Etomidate 20 MG/10 ML Vial 10 MG IV (22:36)
[2022-09-24 22:52] LABS: Anion Gap 9 (5-15); BUN 15 mg/dL (7-18); BUN/Creat Ratio 14.7 RATIO (10-20); Calcium,Total 8.8 mg/dL (8.5-10.1); Chloride 101 mmol/L (98-107); Creatinine, Serum 1.02 mg/dL (0.70-1.30); EST Glomerular Filtration Rate 79 mL/min (>60); Est Glom Filt Rate - Afr Amer 95 mL/min (>60); Estimated Creatinine Clearance 75.09 ml/min; Glucose 132 mg/dL (74-106); Potassium 3.5 mmol/L (3.5-5.1); Sodium Level 139 mmol/L (136-145); Troponin-I HS (w/2H Reflex) 12 pg/mL (3.0-78.0)
--- NOTE | 2022-09-24 22:55 | RAD_ITS ---
INDICATION: chest pain EXAMINATION/TECHNIQUE: X-RAY - XR Chest 1 View COMPARISON: 04/08/2022 FINDINGS: LINES/DEVICES: None. LUNGS: No consolidation, edema or effusion. No pneumothorax. MEDIASTINUM AND CARDIOVASCULAR STRUCTURES: Atherosclerotic calcifications. Cardiomediastinal contours are slightly increased in size compared to the prior. BONES AND SOFT TISSUES: Unremarkable. RAD/Chest 1 View (Portable) IMPRESSION: No acute cardiopulmonary disease. Cardiomediastinal contours are slightly increased in size compared to the prior. Electronically Signed: Delmer Toledo MD at 23:25 EDT ,
[2022-09-25] VITALS: BP 121/59; PULSE 70; RESP 15; O2SAT 92
[2022-09-25 00:31] LABS: Reflex Troponin-HS? (from REC) Y
[2022-09-25 00:53] LABS: Troponin-I HS 16 pg/mL (3.0-78.0)
[2022-09-25 01:00] VITALS: BP 107/64; PULSE 64; RESP 15; O2SAT 94
== END 2022-09-25 01:35 | disposition home or self-care (01) ==
PROVIDERS: Emergency Provider Emergency Medicine; PCP Internal Medicine; Visit Provider Emergency Medicine
DX: I48.91 Unspecified atrial fibrillation (principal); E11.9 Type 2 diabetes mellitus without complications; I10 Essential (primary) hypertension; Z87.891 Personal history of nicotine dependence; E78.5 Hyperlipidemia, unspecified; I25.10 Atherosclerotic heart disease of native coronary artery without angina pectoris; R07.9 Chest pain, unspecified; I25.2 Old myocardial infarction; G47.33 Obstructive sleep apnea (adult) (pediatric)
CPT/HCPCS: 71045; 80048; 84484; 85025; 92960; 93005; 99285; J7030; A4216; J2405

== ENCOUNTER → 2022-12-21 | Outpatient (CLI) | payer BC, SELFPAY ==
[2022-12-21 10:43] LABS: PSA,Total- Diagnostic 4.27 ng/mL (0.0-4.0)
== END | disposition home or self-care (01) ==
PROVIDERS: PCP Internal Medicine; Referring Provider Urology; Visit Provider Urology
DX: N40.1 Benign prostatic hyperplasia with lower urinary tract symptoms (principal)
CPT/HCPCS: 36415; 84153

== ENCOUNTER 2023-02-12 22:53 | Inpatient (IN) | payer BC, SELFPAY ==
[2023-02-12 22:55] VITALS: BP 95/63; PULSE 138; RESP 16; TEMP 36.4; O2SAT 95; BMI 44.6
--- NOTE | 2023-02-12 22:56 | ED.VIS.CHEST ---
HPI History of Present Illness Chief Complaint: Palpitations [facility] Medical History (Updated 02/13/23 @ 03:[address] Ernie Yeboah, DO) Abdominal aortic aneurysm Abdominal aortic aneurysm without rupture Afib Atherosclerotic heart disease of [place] coronary artery without angina pectoris Chest pain Diabetes mellitus, type II Essential hypertension History of cardioversion History of non-ST elevation myocardial infarction (NSTEMI) (09/24/18) History of supraventricular tachycardia HLD (hyperlipidemia) HTN (hypertension) NSTEMI (non-ST elevated myocardial infarction) Obesity (BMI 30-39.9) Obstructive sleep apnea Tobacco abuse Home Medications acetaminophen 325 mg tablet 650 mg (2 x 325 mg) PO Q6H PRN PRN Mild Pain (0-2/10) 09/25/18 [Rx Last Taken Unknown] aspirin 81 mg tablet,delayed release 81 mg PO DAILY@0800 see pcp 09/25/18 [Rx Last Taken Unknown] coenzyme Q10 200 mg capsule (Co Q-10) 200 mg PO DAILY see pcp 10/11/18 [History Last Taken Unknown] metformin 500 mg tablet,extended release 24 hr 1,000 mg PO DAILY see pcp 10/11/18 [History Last Taken Unknown] atorvastatin 80 mg tablet 80 mg PO DAILY see pcp 05/16/19 [History Last Taken Unknown] ascorbic acid (vitamin C) 500 mg capsule,extended release 500 mg PO DAILY see pcp 11/13/19 [History Last Taken Unknown] pyridoxine (vitamin B6) 50 mg capsule (Vitamin B-6) 50 mg PO DAILY see pcp 11/13/19 [History Last Taken Unknown] losartan 25 mg tablet 25 mg PO BID see pc #180 tabs 11/22/21 [Rx Last Taken Unknown] semaglutide 0.25 mg or 0.5 mg (2 mg/1.5 mL) subcutaneous pen injector (Ozempic) 0.25 mg subcut QWEEK see pcp 01/24/22 [History Last Taken Unknown] albuterol sulfate 90 mcg/actuation aerosol inhaler (Ventolin HFA) 2 puff inhalation Q4H PRN PRN Wheezing #8.5 grams 02/23/22 [Rx Last Taken Unknown] pantoprazole 40 mg tablet,delayed release 40 mg PO DAILY see pcp 03/31/22 [History Last Taken Unknown] apixaban 5 mg tablet (Eliquis) 5 mg PO BID see pcp #180 tabs 12/05/22 [Rx Last Taken Unknown] alfuzosin 10 mg tablet,extended release 24 hr 10 mg PO DAILY see pcp 02/13/23 [History Last Taken 02/13/23] ymqjsej-msvrqzizh-ewah 333 mg-133 mg-5 mg tablet 1 tab PO DAILY see pcp 02/13/23 [History Last Taken Unknown] Allergy/AdvReac Type Severity Reaction Status Date / Time rosuvastatin [From Crestor] AdvReac Severe Severe Verified 02/12/23 22:55 myalgias (legs) codeine AdvReac Other Verified 02/12/23 22:55 Family History Mother Heart disease Pacemaker Father Stomach cancer Liver cancer Surgical History History of appendectomy History of thumb surgery Social History Smoking Status: Former smoker quit date: 09/24/18 pack-years: 40 alcohol intake: current alcohol intake frequency: 0-2 drinks per day Alcohol type: beer caffeine: No EXAM Physical Exam Const Vital Signs: 02/12/23 22:55 02/12/23 23:00 02/12/23 23:02 Temperature 97.6 F L Temperature Source Temporal Pulse Rate 138 H Respiratory Rate 16 Respiratory Effort Normal Non-Labored Blood Pressure 95/63 Blood Pressure Mean 73 Blood Pressure Source Blood Pressure Position Blood Pressure Location Pulse Ox 95 Oxygen Delivery Method Room Air Room Air Oxygen Flow Rate (L/min) 02/12/23 23:02 02/13/23 00:00 02/13/23 00:02 Temperature Temperature Source Pulse Rate 148 H 146 H Respiratory Rate 18 20 H Respiratory Effort Blood Pressure 114/66 114/74 Blood Pressure Mean 82 87 Blood Pressure Source Blood Pressure Position Blood Pressure Location Pulse Ox 92 96 Oxygen Delivery Method Nasal Cannula Oxygen Flow Rate (L/min) 4 02/13/23 00:10 02/13/23 01:11 02/13/23 01:00 Temperature Temperature Source Pulse Rate 136 H 130 H 130 H Respiratory Rate 19 H 18 18 Respiratory Effort Blood Pressure 129/65 H 115/77 115/77 Blood Pressure Mean 86 89 86 Blood Pressure Source Monitor Blood Pressure Position Semi-Fowlers Blood Pressure Location Left Arm Pulse Ox 92 97 97 Oxygen Delivery Method Nasal Cannula Oxygen Flow Rate (L/min) 4 [facility] Narrative Medical decision making narrative: HISTORY OF PRESENT ILLNESS: 62-year-old male here with palpitations. Notes midsternal chest pain associated. States I am in A-fib. Notes compliance with Eliquis. The patient denies recent surgery in the last 4 weeks or immobilization in the last 3 days, denies previous diagnosis of DVT or PE, hemoptysis, unilateral leg swelling or malignancy with treatment the last 6 months or palliative. No estrogen use noted. Patient denies sudden onset of pain, no tearing sensation, no migratory symptoms, no new numbness, weakness or loss of sensation. Patient denies family history or personal history of Connective tissue disorders (Marfan's Syndrome, Kyrie Danlos etc). No recent cough or fever. No recent bleeding diathesis. Denies any recent vomiting or nausea. REVIEW OF SYSTEMS: Pertinent positives: Palpitations Pertinent negatives: Syncope PHYSICAL EXAM: Nursing triage notes reviewed, Vital signs reviewed Constitutional: please see [facility] HENT: MMM Eyes: Pupils equal round and reactive to light, Extraocular muscles intact Neck: No stridor, no JVD, full neck ROM Lungs: Clear to auscultation, No wheezing or rales. No increased work of breathing, no conversational dyspnea, no accessory muscle use, no nasal flaring. No respiratory distress noted Heart: Fast irregular rate, no murmurs, No rubs and No gallops, 2+ distal pulses (radial, femoral, posterior tibial) in all extremities Abdomen: Soft, there is no tenderness, rigidity, rebound or guarding, no obvious peritoneal signs, no palpable pulsatile abdominal masses, no auscultated abdominal bruit : No CVAT Extremities: No edema Neuro: No focal neurological deficits, cranial nerves II through XII intact, 5/5 strength in all extremities. Intact sensation to light touch in all extremities, 2+ reflexes bilateral patella tendons. Normal gait. No ataxia. Skin: No rash or lesions noted MEDICAL DECISION MAKING: Chief Complaint: Palpitations External records reviewed: Factors affecting care: History of atrial fibrillation on Eliquis, AAA with rupture, CAD post PCI, hyperlipidemia, type 2 diabetes, obesity, tobacco abuse Social determinants of health: Tobacco abuse History obtained from others: none Consults: none [facility] Narrative: Patient was initially tachycardic I considered the following differential diagnosis: Arrhythmia, anemia, electrolyte maladies, ACS, PE I considered PE however thought this was less likely given the fact the patient is on Eliquis and is a low risk Wells score. ALL IMAGES (IF OBTAINED) HAVE BEEN PERSONALLY REVIEWED AND INTERPRETED BY MYSELF. EKG shows A-fib with RVR, normal axis, prolonged QT interval, no obvious STEMI but some rate related ischemic changes noted Repeat EKG continues to show A-fib with RVR CBC without leukocytosis, noted mild anemia, no thrombocytopenia BMP without evidence of significant electrolyte abnormalities, no anion gap, no acute kidney injury. Troponin is negative, no evidence of myocardial ischemia I have personally reviewed the patient's chest x-ray. Chest x-ray is unremarkable for pulmonary edema, pneumothorax, pneumonia or focal cardiopulmonary abnormality. The amalgamation of the patient's labs images EKG suggest A-fib with RVR which is likely etiology. He has initially given a dose of IV diltiazem Without any response. He was then given 3 doses of 5 mg IV metoprolol which improved his rate however he was still displaying rapid ventricular response. He was then started diltiazem drip. Given patient's A-fib with RVR and vasoactive drip patient was admitted to ICU. Discussed with Dr. Victor. Of note during the patient's ED stay he would have transient hypoxia likely secondary to sleep apnea as he was becoming somnolent given the late hour. The patient and/or family, caregivers express understanding. The patient and/or family, caregivers agrees with the plan. Shared decision making: I will have a discussion with the patient and or visitors regarding risk/benefits of further testing or admission. They will be made aware of of the risk/benefits inherent in this decision they will be given the opportunity to voice understanding. Total critical care time today provided was at least 35 minutes. This excludes separately billable procedures. Critical care time (if documented) is secondary to the patient having high probability of clinically significant/life threatening deterioration in the patient's condition which required my urgent intervention. Impression: 1. A-fib with RVR 2. Palpitations 3. Anemia 4. Hypoxia Dispo: Admit to ICU Lab Data Attestation: I reviewed the patient's lab results. Labs: Laboratory Results - last 24 hr 02/12/23 23:13 WBC 8.3 RBC 4.32 L Hgb 12.9 L Hct 41.4 MCV 95.8 H MCH 29.9 MCHC 31.2 L RDW Std Deviation 49.5 H RDW Coeff of Frank 14.0 Plt Count 192 MPV 9.4 Immature Gran % (Auto) 0.800 Neut % (Auto) 75.2 H Lymph % (Auto) 16.9 L [place] % (Auto) 5.0 Eos % (Auto) 1.4 Baso % (Auto) 0.7 Absolute Neuts (auto) 6.3 Absolute Lymphs (auto) 1.41 Nucleated RBC % 0 Sodium 137 Potassium 3.6 Chloride 101 Carbon Dioxide 27.0 Anion Gap 9 BUN 22 H Creatinine 1.35 H Estim Creat Clear Calc 56.73 Est GFR (MDRD) Af Amer 69 Est GFR (MDRD) Non-Af 57 L BUN/Creatinine Ratio 16.3 Glucose 262 H Calcium 8.5 Troponin I High Sens 32 Radiography Chest X-Ray - ED: Read by ED Physician Diagnostic Testing: Clinical Impression(s) from Imaging Studies Chest X-Ray 02/12/23 22:58 IMPRESSION: No radiographic evidence of acute cardiopulmonary disease. Electronically Signed: Christiano Cedeno MD at 23:36 EDT , Discharge Plan Dx/Rx/DC Orders Clinical Impression: Atrial fibrillation with RVR Disposition Disposition: Acute Care Hospital [facility] Discharge Date/Time: 02/13/23 02:44
--- NOTE | 2023-02-12 22:58 | EKG12_ITS ---
Test Reason : SVT Blood Pressure : / mmHG Vent. Rate : 147 BPM Atrial Rate : 000 BPM P-R Int : 000 ms QRS Dur : 094 ms QT Int : 310 ms P-R-T Axes : 000 050 -43 degrees QTc Int : 485 ms Critical Test Result: High HR Atrial fibrillation with rapid ventricular response ST & T wave abnormality, consider inferior ischemia Abnormal ECG Confirmed by PIERRE ESPARZA MD ([id number]), staff editor LEA MARTINEZ ([id number]) on 02/16/2023 2:21:20 PM Referred By: KAMRYN Confirmed By:PIERRE ESPARZA MD
--- NOTE | 2023-02-12 22:58 | RAD_ITS ---
INDICATION: chest pain EXAMINATION/TECHNIQUE: X-RAY - portable upright AP chest x-ray COMPARISON: 09/24/2022 FINDINGS: LINES/DEVICES: None. LUNGS: No consolidation, edema or effusion. No pneumothorax. MEDIASTINUM AND CARDIOVASCULAR STRUCTURES: Cardiac silhouette stable within upper normal limits. BONES AND SOFT TISSUES: No acute changes. RAD/Chest 1 View (Portable) IMPRESSION: No radiographic evidence of acute cardiopulmonary disease. Electronically Signed: Christiano Cedeno MD at 23:36 EDT ,
[2023-02-12 23:02] VITALS: BP 114/66
[2023-02-12] MEDS: 0.9% Normal Saline (1000mL) 1,000 ML 500 ML IV (23:08)
[2023-02-12 23:18] LABS: Absolute Lymphocyte Count 1.41 X10^3/uL (0.83-4.51); Absolute Neutrophil Count 6.3 X10^3/uL (2.0-7.7); Basophil# 0.06 X10^3/uL; Basophil% 0.7 % (0-1); Eosinophil# 0.12 X10^3/uL; Eosinophils% 1.4 % (0-5); Hematocrit 41.4 % (40-54); Hemoglobin 12.9 g/dL (13.0-16.5); Lymphocyte # 1.41 X10^3/ul (0.83-4.51); Lymphocyte % 16.9 % (19-41); Mean Corp Hgb Conc 31.2 g/dL (32-36); Mean Corpuscular Hgb 29.9 pg (27.0-32.0); Mean Corpuscular Volume 95.8 fL (80-94); Mean Platelet Vol. 9.4 fl (6.2-12.0); Monocyte# 0.42 X10^3/uL; NRBC Flagged by Analyzer 0 % (0-5); Neutrophil # 6.26 X10^3/uL (2.7-7.7); Neutrophil % 75.2 % (47-70); Platelet Count 192 K/mm3 (150-450); RBC Distribution Width SD 49.5 fl (35.1-43.9); Red Blood Count 4.32 M/mm3 (4.6-6.2); White Blood Count 8.3 K/mm3 (4.4-11.0)
[2023-02-12] MEDS: dilTIAZem 25 MG/5 ML Vial 10 MG IV BOLUS (23:22)
[2023-02-12 23:36] LABS: Anion Gap 9 (5-15); BUN 22 mg/dL (7-18); BUN/Creat Ratio 16.3 RATIO (10-20); Calcium,Total 8.5 mg/dL (8.5-10.1); Chloride 101 mmol/L (98-107); Creatinine, Serum 1.35 mg/dL (0.70-1.30); EST Glomerular Filtration Rate 57 mL/min (>60); Est Glom Filt Rate - Afr Amer 69 mL/min (>60); Estimated Creatinine Clearance 56.73 ml/min; Glucose 262 mg/dL (74-106); Potassium 3.6 mmol/L (3.5-5.1); Sodium Level 137 mmol/L (136-145); Troponin-I HS 32 pg/mL (3.0-78.0)
[2023-02-12] MEDS: Metoprolol Tartrate 5 MG/5 ML Vial IV (23:58)
[2023-02-13] VITALS (32 sets, daily range): BP systolic 80–129; BP diastolic 65–97; PULSE 46–148; RESP 12–22; TEMP 36.2–36.4; O2SAT 90–97; BMI 44.4
[2023-02-13] MEDS: Metoprolol Tartrate 5 MG/5 ML Vial IV ×2 (00:09→00:46)
--- NOTE | 2023-02-13 00:28 | EKG12_ITS ---
Test Reason : REPEAT Blood Pressure : / mmHG Vent. Rate : 134 BPM Atrial Rate : 000 BPM P-R Int : 000 ms QRS Dur : 090 ms QT Int : 314 ms P-R-T Axes : 000 051 -19 degrees QTc Int : 468 ms Atrial fibrillation with rapid ventricular response Abnormal QRS-T angle, consider primary T wave abnormality Abnormal ECG Confirmed by VILMA LONDON, PIERRE ([id number]), photography editor LEA MARTINEZ ([id number]) on 02/16/2023 2:18:49 PM Referred By: Confirmed By:PIERRE ESPARZA MD
[2023-02-13] MEDS: Diltiazem 125 MG in Dextrose 5%-Water (100mL Bag) 100 ML CONT INF (01:11)
[2023-02-13] MEDS: Ondansetron 4 MG/2 ML Vial IV (01:42)
--- NOTE | 2023-02-13 01:58 | HP.PCM_ITS ---
[facility] - General General Date of Admission: 02/13/23 Date of Service: 02/13/23 Chief Complaint: Palpitations HPI Narrative BRAVO FREEDMAN, is a 62 M who presents to the emergency room with chief complaint of heart palpitations onset was this evening. Patient has significant past medical history of paroxysmal atrial fibrillation with rapid ventricular response for which she takes Eliquis. Earlier this evening he felt his heart rate was rapid and felt heart palpitations and came to the emergency room for evaluation. Despite receiving doses of diltiazem in the emergency room patient continues to have atrial fibrillation with rapid ventricular response at a rate of 130 bpm. Initial x-ray is within normal limits as well as initial laboratory studies with a negative troponin. Patient feels tired but does not have chest pain at present time. He will be admitted for treatment of atrial fibrillation with rapid ventricular response that was refractory to initial treatment in the emergency room. [facility] Medical History (Updated 02/13/23 @ 02:[address] William Victor MD) Abdominal aortic aneurysm Abdominal aortic aneurysm without rupture Afib Atherosclerotic heart disease of [place] coronary artery without angina pectoris Chest pain Diabetes mellitus, type II Essential hypertension History of cardioversion History of non-ST elevation myocardial infarction (NSTEMI) (09/24/18) History of supraventricular tachycardia HLD (hyperlipidemia) HTN (hypertension) NSTEMI (non-ST elevated myocardial infarction) Obesity (BMI 30-39.9) Obstructive sleep apnea Tobacco abuse Home Medications acetaminophen 325 mg tablet 650 mg (2 x 325 mg) PO Q6H PRN PRN Mild Pain (0- 2/10) 09/25/18 [Rx Last Taken Unknown] aspirin 81 mg tablet,delayed release 81 mg PO DAILY@0800 09/25/18 [Rx Last Taken Unknown] coenzyme Q10 200 mg capsule (Co Q-10) 200 mg PO DAILY 10/11/18 [History Last Taken Unknown] magnesium oxide 250 mg PO DAILY 10/11/18 [History Last Taken Unknown] metformin 500 mg tablet,extended release 24 hr 1,000 mg PO DAILY 10/11/18 [History Last Taken Unknown] atorvastatin 80 mg tablet 80 mg PO DAILY 05/16/19 [History Last Taken Unknown] ascorbic acid (vitamin C) 500 mg capsule,extended release 500 mg PO DAILY 11/13/19 [History Last Taken Unknown] pyridoxine (vitamin B6) 50 mg capsule (Vitamin B-6) 50 mg PO DAILY 11/13/19 [History Last Taken Unknown] losartan 25 mg tablet 25 mg PO BID #180 tabs 11/22/21 [Rx Last Taken Unknown] semaglutide 0.25 mg or 0.5 mg (2 mg/1.5 mL) subcutaneous pen injector (Ozempic) 0.25 mg subcut TURNER 01/24/22 [History Last Taken Unknown] albuterol sulfate 90 mcg/actuation aerosol inhaler (Ventolin HFA) 2 puff inhalation Q4H PRN PRN Wheezing #8.5 grams 02/23/22 [Rx Last Taken Unknown] pantoprazole 40 mg tablet,delayed release 40 mg PO DAILY 03/31/22 [History Last Taken Unknown] apixaban 5 mg tablet (Eliquis) 5 mg PO BID #180 tabs 12/05/22 [Rx Last Taken Unknown] Allergy/AdvReac Type Severity Reaction Status Date / Time rosuvastatin [From Crestor] AdvReac Severe Severe Verified 02/12/23 22:55 myalgias (legs) codeine AdvReac Other Verified 02/12/23 22:55 Family History Mother Heart disease Pacemaker Father Stomach cancer Liver cancer Surgical History History of appendectomy History of thumb surgery Social History Smoking Status: Former smoker quit date: 09/24/18 pack-years: 40 alcohol intake: current alcohol intake frequency: 0-2 drinks per day Alcohol type: beer caffeine: No ROS Constitutional Constitutional: Denies chills or fever(s) Eyes Eyes: Denies change in vision ENT HEENT: Denies abnormal hearing Cardiovascular Cardiovascular: Reports palpitations; Denies chest pain or syncope Respiratory/Chest Respiratory/Chest: Reports shortness of breath with exertion; Denies cough Gastrointestinal Gastrointestinal: Denies abdominal pain, hematemesis, hematochezia, melena, nausea or vomiting Genitourinary Genitourinary: Denies dysuria Musculoskeletal Musculoskeletal: Denies back pain Integumentary Integumentary: Denies pruritus Neurologic Neurologic: Denies abnormal gait or abnormal speech Psychiatric Psychiatric: Denies anxiety Endocrine Endocrinology: Denies cold intolerance or heat intolerance Hematologic/Lymphatic Hematologic/Lymphatic: Denies anemia Vital Signs Vital Signs Vital Signs: 02/12/23 22:55 02/12/23 23:00 02/12/23 23:02 Temperature 97.6 F L Temperature Source Temporal Pulse Rate 138 H Respiratory Rate 16 Respiratory Effort Normal Non-Labored Blood Pressure 95/63 Blood Pressure Mean 73 Blood Pressure Source Blood Pressure Position Blood Pressure Location Pulse Ox 95 Oxygen Delivery Method Room Air Room Air Oxygen Flow Rate (L/min) 02/12/23 23:02 02/13/23 00:00 02/13/23 00:02 Temperature Temperature Source Pulse Rate 148 H 146 H Respiratory Rate 18 20 H Respiratory Effort Blood Pressure 114/66 114/74 Blood Pressure Mean 82 87 Blood Pressure Source Blood Pressure Position Blood Pressure Location Pulse Ox 92 96 Oxygen Delivery Method Nasal Cannula Oxygen Flow Rate (L/min) 4 02/13/23 00:10 02/13/23 01:11 02/13/23 01:00 Temperature Temperature Source Pulse Rate 136 H 130 H 130 H Respiratory Rate 19 H 18 18 Respiratory Effort Blood Pressure 129/65 H 115/77 115/77 Blood Pressure Mean 86 89 86 Blood Pressure Source Monitor Blood Pressure Position Semi-Fowlers Blood Pressure Location Left Arm Pulse Ox 92 97 97 Oxygen Delivery Method Nasal Cannula Oxygen Flow Rate (L/min) 4 Weight Weight: 302 lb 7.587 oz Body Mass Index (BMI) 44.6 Physical Exam Const oriented x3 General Appearance: cooperative and well developed HEENT normocephalic and head/scalp atraumatic Eyes PERRL and EOMs intact bilaterally Neck no lymphadenopathy Lymph Lymphatic: no lymphadenopathy noted Resp normal respiratory effort, normal air movement and clear to auscultation bilaterally Cardio S1 normal heart sound, S2 normal heart sound and no murmurs Rhythm: abnormal rhythm irregularly irregular Heart Sounds: Negative for gallop, murmur or rub GI normal to inspection, nondistended, normoactive bowel sounds Extremity normal capillary refill Skin General Skin Exam: no breakdown Neuro no focal motor deficits and no sensory deficits noted Psych cooperative and affect normal Appearance: appropriate Results Lab / Micro Data 02/12/23 23:13 02/12/23 23:13 Labs: Laboratory Results - last 24 hr 02/12/23 23:13: WBC 8.3, RBC 4.32 L, Hgb 12.9 L, Hct 41.4, MCV 95.8 H, MCH 29.9, MCHC 31.2 L, RDW Std Deviation 49.5 H, RDW Coeff of Frank 14.0, Plt Count 192, MPV 9.4, Immature Gran % (Auto) 0.800, Neut % (Auto) 75.2 H, Lymph % (Auto) 16.9 L, [place] % (Auto) 5.0, Eos % (Auto) 1.4, Baso % (Auto) 0.7, Absolute Neuts (auto) 6.3, Absolute Lymphs (auto) 1.41, Nucleated RBC % 0, Sodium 137, Potassium 3.6, Chloride 101, Carbon Dioxide 27.0, Anion Gap 9, BUN 22 H, Creatinine 1.35 H, Estim Creat Clear Calc 56.73, Est GFR (MDRD) Af Amer 69, Est GFR (MDRD) Non-Af 57 L, BUN/Creatinine Ratio 16.3, Glucose 262 H, Calcium 8.5, Troponin I High Sens 32 Radiology Impression Chest X-Ray 02/12/23 22:58 IMPRESSION: No radiographic evidence of acute cardiopulmonary disease. Electronically Signed: Christiano Cedeno MD at 23:36 EDT Reading Location ID and State: [facility] / [place] Tel , Service support , Assessment & Plan Assessment/Plan (1) PAF (paroxysmal atrial fibrillation): (2) Stented coronary artery: (3) Essential hypertension: (4) Obstructive sleep apnea: (5) Diabetes mellitus, type II: QUALIFIERS: Diabetes mellitus correction insulin use: unspecified correction insulin use status Diabetes mellitus complication status: with unspecified complications Qualified Code(s): E11.8 - Type 2 diabetes mellitus with unspecified complications (6) Tobacco abuse: (7) Obesity (BMI 30-39.9): (8) Atrial fibrillation with RVR: PLAN: Plan 1. Atrial fibrillation with rapid ventricular response?admit patient to progressive care unit, given a dose of metoprolol 50 mg p.o. x1 and continue Cardizem drip and monitor for chemical cardioversion. Consult cardiology in a.m. if unable to convert. Consider echocardiogram if one has not been done in the past year. 2. Diabetes?continue routine home medications, hold patient as n.p.o. for now a s we may consider cardioversion for his A-fib 3. Obstructive sleep apnea?continue CPAP 4. History of tobacco abuse?cessation encouraged 5. DVT prophylaxis?patient is anticoagulated and will continue on Eliquis Charges/Coding Visit Charges Inpatient E&M: 62625 Init Hosp L2
[2023-02-13] MEDS: Metoprolol Tartrate 50 MG Tablet PO (03:27)
[2023-02-13 04:05] LABS: Absolute Lymphocyte Count 1.74 X10^3/uL (0.83-4.51); Absolute Neutrophil Count 5.9 X10^3/uL (2.0-7.7); Basophil# 0.07 X10^3/uL; Basophil% 0.8 % (0-1); Eosinophil# 0.11 X10^3/uL; Eosinophils% 1.3 % (0-5); Hematocrit 40.9 % (40-54); Hemoglobin 12.7 g/dL (13.0-16.5); Lymphocyte # 1.74 X10^3/ul (0.83-4.51); Lymphocyte % 20.4 % (19-41); Mean Corp Hgb Conc 31.1 g/dL (32-36); Mean Corpuscular Hgb 29.9 pg (27.0-32.0); Mean Corpuscular Volume 96.2 fL (80-94); Mean Platelet Vol. 9.7 fl (6.2-12.0); Monocyte# 0.62 X10^3/uL; Monocyte% 7.3 % (0-10); NRBC Flagged by Analyzer 0 % (0-5); Neutrophil # 5.94 X10^3/uL (2.7-7.7); Neutrophil % 69.5 % (47-70); Platelet Count 208 K/mm3 (150-450); RBC Distribution Width CV 14.2 % (11.6-14.6); Red Blood Count 4.25 M/mm3 (4.6-6.2); White Blood Count 8.5 K/mm3 (4.4-11.0)
[2023-02-13 04:26] LABS: Anion Gap 5 (5-15); BUN 21 mg/dL (7-18); BUN/Creat Ratio 19.8 RATIO (10-20); Calcium,Total 8.6 mg/dL (8.5-10.1); Chloride 104 mmol/L (98-107); Creatinine, Serum 1.06 mg/dL (0.70-1.30); EST Glomerular Filtration Rate 75 mL/min (>60); Est Glom Filt Rate - Afr Amer 91 mL/min (>60); Estimated Creatinine Clearance 72.26 ml/min; Glucose 132 mg/dL (74-106); Potassium 4.4 mmol/L (3.5-5.1); Sodium Level 140 mmol/L (136-145)
[2023-02-13 04:34] LABS: International Normalized Ratio 1.1; Prothrombin Time (Protime)PT. 14.3 SECONDS (11.7-14.9)
[2023-02-13] MEDS: metFORMIN (XR) 500 MG Tablet 1000 MG PO (10:50)
[2023-02-13] MEDS: Ascorbic Acid 500 MG Tablet PO (10:50)
[2023-02-13] MEDS: Aspirin E.C. 81 MG Tablet PO (10:50)
[2023-02-13] MEDS: Pyridoxine HCl 50 MG Tablet PO (10:51)
[2023-02-13] MEDS: APIXABAN 5 MG TABLET PO ×2 (10:51→20:36)
[2023-02-13] MEDS: Magnesium Chloride 64 MG Delay Rel.Tablet PO (10:51)
[2023-02-13] MEDS: Losartan Potassium 25 MG Tablet PO (10:51)
[2023-02-13] MEDS: Pantoprazole Sodium 40 MG Tablet PO (10:51)
[2023-02-13] MEDS: Diltiazem 125 MG in Dextrose 5%-Water (100mL Bag) 100 ML 15 MG CONT INF (10:55)
[2023-02-13 11:03] LABS: Bedside Glucose 108 mg/dL (74-106)
--- NOTE | 2023-02-13 11:32 | EKG12_ITS ---
Test Reason : a-fib Blood Pressure : / mmHG Vent. Rate : 052 BPM Atrial Rate : 277 BPM P-R Int : 000 ms QRS Dur : 088 ms QT Int : 404 ms P-R-T Axes : 017 055 060 degrees QTc Int : 375 ms Atrial flutter with variable A-V block Abnormal ECG Confirmed by VILMA LONDON, PIERRE ([id number]), editorial intern LEA MARTINEZ ([id number]) on 03/01/2023 2:28:23 PM Referred By: Vilma Confirmed By:PIERRE ESPARZA MD
--- NOTE | 2023-02-13 12:20 | CASEMGMT ---
RN?CM?PAPER TWISTER TENDER?CM?to room to meet with patient for initial transition planning/care coordination?assessment.?RN?CM?introduced self and role at [facility].? Pt voices understanding and consents to?assessment?at this time.? Pt resting in bed in no distress at this time.? Pt is A/O at this time and answers all questions appropriately.?? Care providers, pharmacy, and demographics verified/updated at this time. PCP: Dr Priest Specialists: AMANDA/Cardiology, Dr Scruggs-urology, Dr Oneal-vascular, Dr Iniguez-podiatry Preferred Pharmacy: [facility] Insurance: [employer] Prescription Benefit:?Yes Living Will/HPOA:?Pt does not currently have LW/HCPOA and declines info at this time.? Pt made aware that he can contact as an out-pt and make appt in the future if he decides he would like to talk with someone about this or would like to utilize [facility] social work for advanced directive completion.???Pt states he would want his step-dtr to be 1st alternative HCPOA after his , but does not wish to complete AD at this time, stating, That can come later. LNOK: . Pt has one biological child that he states has nothing to do with him. He does have step-children. Living Arrangements: Lives w/his in mobile home w/ramp entrance. Indep w/ADL's. assists w/med mgnt. Pt works full-time. Transportation:?Pt states drives self and states no transportation concerns at this time.? also drives. DME: States has the following DME:?functioning glucometer w/sufficient supplies, CPAP from [facility] w/O2 bleed-in @ HS @ 2 L/M (verified w/[facility] at this time). Pt states his has a nebulizer, but he does not have one of his own. He does not have a pulse ox and uses no AD to ambulate. He states he has all medication, insulin, and insulin administration supplies needed @ home. Pt states no need for further DME at this time.? HHC/SNF: No hx of either. No needs identified. Pt Link: Discussed Pt Link w/him. He states he is not interested in this. Pt wishes to return home and states has no concerns with going home at time of discharge.? Pt used to smoke, but states quit in 2019 after having PR. He drink a couple beers almost daily. Pt denies wanting resources to quit drinking. CM?to follow for home oxygen needs and any further discharge planning/needs.? Pt voices no further concerns/needs at this time.? Advised pt to ask for?CM?if any further questions/concerns/needs arise.? Voices understanding. PLAN:??Home Adarsh BSN?RN?CM
[2023-02-13] MEDS: Digoxin 250 MCG/ML Ampul 500 MCG IV (12:45)
[2023-02-13] MEDS: dilTIAZem 25 MG/5 ML Vial IV BOLUS (12:47)
[2023-02-13] MEDS: 0.9% Saline Lock 10 ML Syringe IV (12:48)
--- NOTE | 2023-02-13 14:02 | NURSING ---
dr [facility] notified of hr 38-50 bp bp 80/65 , ekg completed, hold Cardizem gtt,continue to monitor
--- NOTE | 2023-02-13 14:42 | PCM.PROGNOTE ---
Subjective Subjective Patient seen and examined. He has no complaints and denies any chest pain, palpitations, dizziness, nausea, vomiting or any other symptoms. Review of systems otherwise negative. He remains tachycardic with heart rate in the 130s at time of review. He is on Cardizem drip. Objective Data Objective Data Vital Signs: Vital Signs Temp Pulse Resp BP Pulse Ox O2 Del Method O2 Flow Rate 97.2 F L 133 H 22 H 124/93 H 94 Nasal Cannula 4 02/13/23 12:00 02/13/23 12:45 02/13/23 12:00 02/13/23 12:45 02/13/23 12:00 02/13/23 12:00 02/13/23 12:00 Oxygen Flow Rate (L/min) 4 Oxygen Delivery Method Nasal Cannula Weight: 300 lb 11.368 oz Body Mass Index (BMI) 44.4 Intake & Output: Intake and Output for Last 24 Hours 02/11/23 02/12/23 02/13/23 23:59 23:59 23:59 Intake Total 1425.00 / 1425.00 Output Total 300 / 300 Balance 1125.00 / 1125.00 Lab / Micro Data 02/13/23 03:55 02/13/23 03:55 Labs: Laboratory Results - last 24 hr 02/12/23 23:13: WBC 8.3, RBC 4.32 L, Hgb 12.9 L, Hct 41.4, MCV 95.8 H, MCH 29.9, MCHC 31.2 L, RDW Std Deviation 49.5 H, RDW Coeff of Frank 14.0, Plt Count 192, MPV 9.4, Immature Gran % (Auto) 0.800, Neut % (Auto) 75.2 H, Lymph % (Auto) 16.9 L, [place] % (Auto) 5.0, Eos % (Auto) 1.4, Baso % (Auto) 0.7, Absolute Neuts (auto) 6.3, Absolute Lymphs (auto) 1.41, Nucleated RBC % 0, Sodium 137, Potassium 3.6, Chloride 101, Carbon Dioxide 27.0, Anion Gap 9, BUN 22 H, Creatinine 1.35 H, Estim Creat Clear Calc 56.73, Est GFR (MDRD) Af Amer 69, Est GFR (MDRD) Non-Af 57 L, BUN/Creatinine Ratio 16.3, Glucose 262 H, Calcium 8.5, Troponin I High Sens 32 02/13/23 03:55: WBC 8.5, RBC 4.25 L, Hgb 12.7 L, Hct 40.9, MCV 96.2 H, MCH 29.9, MCHC 31.1 L, RDW Std Deviation 50.0 H, RDW Coeff of Frank 14.2, Plt Count 208, MPV 9.7, Immature Gran % (Auto) 0.700, Neut % (Auto) 69.5, Lymph % (Auto) 20.4, [place] % (Auto) 7.3, Eos % (Auto) 1.3, Baso % (Auto) 0.8, Absolute Neuts (auto) 5.9, Absolute Lymphs (auto) 1.74, Nucleated RBC % 0, PT 14.3, INR 1.1, Sodium 140, Potassium 4.4, Chloride 104, Carbon Dioxide 31.0, Anion Gap 5, BUN 21 H, Creatinine 1.06, Estim Creat Clear Calc 72.26, Est GFR (MDRD) Af Amer 91, Est GFR (MDRD) Non-Af 75, BUN/Creatinine Ratio 19.8, Glucose 132 H, Calcium 8.6 02/13/23 10:45: POC Glucose 108 H Radiography Diagnostic Testing: Radiology Impression Chest X-Ray 02/12/23 22:58 IMPRESSION: No radiographic evidence of acute cardiopulmonary disease. Electronically Signed: Christiano Cedeno MD at 23:36 EDT Reading Location ID and State: [facility] / [place] Tel , Service support , Physical Exam Const alert, oriented x3 and no apparent distress General Appearance: cooperative HEENT normocephalic, head/scalp atraumatic, moist oral mucous membranes and oropharynx normal Eyes PERRL and EOMs intact bilaterally Neck no lymphadenopathy, supple and no JVD Lymph Lymphatic: no lymphadenopathy noted and no lymphedema noted Resp normal respiratory effort, normal air movement and clear to auscultation bilaterally Cardio Cardio Narrative: afib with RVR GI normal to inspection, nondistended, normoactive bowel sounds, soft to palpation, non-tender and non-distended Extremity normal capillary refill, no clubbing, cyanosis or edema and no calf tenderness General Extremity: no tenderness to palpation of joints or extremities Skin General Skin Exam: no breakdown Neuro CN's II-XII intact bilaterally and no focal motor deficits Motor Exam: strength 5/5 throughout and general weakness Psych thought process normal and cooperative Appearance: appropriate Assessment & Plan Assessment/Plan (1) Atrial fibrillation with RVR: (2) Atrial fibrillation with RVR: PLAN: Plan #Afib with RVR on cardizem drip. Still very tachycardic and in afib with RVR will consult cardiology in light of hte persistent afib with RVR on eliquis. Last echo in EMR from April 2022 showed EF of 65% with normal left ventricular systolic function and no evidence of diastolic dysfunction. #Type 2 diabetes mellitus: On metformin. Insulin sliding scale. Accu-Cheks ACHS. Also on semaglutide #Hypertension: Losartan held due to patient being on cardizem drip. #CAD s/p stents: On aspirin and high intensity statin. DVT prophylaxis: Already on Eliquis Charges/Coding Visit Charges Inpatient E&M: 15387 Subs Hosp L3
--- NOTE | 2023-02-13 16:24 | PCM.CONS.C ---
Assessment & Plan Assessment/Plan (1) Atrial fibrillation with RVR: PLAN: Patient presents with symptomatic atrial fibrillation with rapid ventricular response rate. His last echocardiogram demonstrated preserved left ventricular systolic function. He has been on anticoagulation with Eliquis and at this time as it is difficult to control his rate I would recommend that we consider DC cardioversion in a.m. (2) Stented coronary artery: PLAN: He does have a coronary artery which is stented, and the mid circumflex artery with a 3.0 x 20 mm Promus Synergy stent and PCI of the ostium of the second obtuse marginal branch with a 2.0 x 12 mm balloon. His ejection fraction was preserved. The rest of the vessels were nonobstructive. (3) Essential hypertension: PLAN: His blood pressure appears to be under good control though it did drop with intravenous Cardizem today (4) HLD (hyperlipidemia): QUALIFIERS: Hyperlipidemia type: unspecified Qualified Code(s): E78.5 - Hyperlipidemia, unspecified PLAN: He will continue with secondary risk factor modification. (5) Abdominal aortic aneurysm without rupture: PLAN: He does have a stable abdominal aorta. We will continue with the current medical therapy. HPI Consult Data Date of Consult: 02/13/23 HPI Narrative HPI Narrative: BRAVO FREEDMAN, is a 62 M who presents to the emergency room with palpitations and shortness of breath. He is a gentleman with a history of coronary artery disease status post PCI, paroxysmal atrial fibrillation, hypertension, hyperlipidemia and diabetes mellitus. He had previously presented in September of this year with atrial fibrillation with rapid ventricular response rate and chest discomfort and underwent a DC cardioversion. He was recently seen in the office and at that time appeared to be doing quite well. This time he presented to the emergency room was noted to be in atrial fibrillation with rapid ventricular response rate he was started on intravenous diltiazem. He continued to maintain a high ventricular response rate and had additional diltiazem and digoxin given with bradycardia arrhythmia pauses noted. He denies chest, arm, jaw, or neck discomfort. He denies palpitations. He denies bilateral lower extremity edema. He denies claudication. He denies shortness of breath with activity, shortness of breath at rest, orthopnea, or PND. He acknowledges occasional productive cough and occasional wheezing. He denies significant, sudden weight gain. He denies lightheadedness, dizziness, near-syncope, or syncope. He denies blood in urine, blood in stool, or epistaxis. He denies fever with chills. He denies myalgia. He denies fatigue. His exercise level has remained stable. [facility] Medical History Abdominal aortic aneurysm Abdominal aortic aneurysm without rupture Afib Atherosclerotic heart disease of [place] coronary artery without angina pectoris Chest pain Diabetes mellitus, type II Essential hypertension History of cardioversion History of non-ST elevation myocardial infarction (NSTEMI) (09/24/18) History of supraventricular tachycardia HLD (hyperlipidemia) HTN (hypertension) NSTEMI (non-ST elevated myocardial infarction) Obesity (BMI 30-39.9) Obstructive sleep apnea Tobacco abuse Home Medications acetaminophen 325 mg tablet 650 mg (2 x 325 mg) PO Q6H PRN PRN Mild Pain (0-2/10) 09/25/18 [Rx Last Taken Unknown] aspirin 81 mg tablet,delayed release 81 mg PO DAILY@0800 see pcp 09/25/18 [Rx Last Taken Unknown] coenzyme Q10 200 mg capsule (Co Q-10) 200 mg PO DAILY see pcp 10/11/18 [History Last Taken Unknown] metformin 500 mg tablet,extended release 24 hr 1,000 mg PO DAILY see pcp 10/11/18 [History Last Taken Unknown] atorvastatin 80 mg tablet 80 mg PO DAILY see pcp 05/16/19 [History Last Taken Unknown] ascorbic acid (vitamin C) 500 mg capsule,extended release 500 mg PO DAILY see pcp 11/13/19 [History Last Taken Unknown] pyridoxine (vitamin B6) 50 mg capsule (Vitamin B-6) 50 mg PO DAILY see pcp 11/13/19 [History Last Taken Unknown] losartan 25 mg tablet 25 mg PO BID see pc #180 tabs 11/22/21 [Rx Last Taken Unknown] semaglutide 0.25 mg or 0.5 mg (2 mg/1.5 mL) subcutaneous pen injector (Ozempic) 0.25 mg subcut QWEEK see pcp 01/24/22 [History Last Taken Unknown] albuterol sulfate 90 mcg/actuation aerosol inhaler (Ventolin HFA) 2 puff inhalation Q4H PRN PRN Wheezing #8.5 grams 02/23/22 [Rx Last Taken Unknown] pantoprazole 40 mg tablet,delayed release 40 mg PO DAILY see pcp 03/31/22 [History Last Taken Unknown] apixaban 5 mg tablet (Eliquis) 5 mg PO BID see pcp #180 tabs 12/05/22 [Rx Last Taken Unknown] alfuzosin 10 mg tablet,extended release 24 hr 10 mg PO DAILY see pcp 02/13/23 [History Last Taken 02/13/23] ztdykyw-puhigpsji-otiu 333 mg-133 mg-5 mg tablet 1 tab PO DAILY see pcp 02/13/23 [History Last Taken Unknown] Allergy/AdvReac Type Severity Reaction Status Date / Time rosuvastatin [From Crestor] AdvReac Severe Severe Verified 02/12/23 22:55 myalgias (legs) codeine AdvReac Other Verified 02/12/23 22:55 Family History Mother Heart disease Pacemaker Father Stomach cancer Liver cancer Surgical History History of appendectomy History of thumb surgery Social History Smoking Status: Former smoker quit date: 09/24/18 pack-years: 40 alcohol intake: current alcohol intake frequency: 0-2 drinks per day Alcohol type: beer caffeine: No ROS Constitutional Constitutional: Denies chills or fever(s) Eyes Eyes: Denies change in vision ENT HEENT: Denies abnormal hearing Cardiovascular Cardiovascular: Reports palpitations; Denies chest pain or syncope Respiratory/Chest Respiratory/Chest: Reports shortness of breath with exertion; Denies cough Gastrointestinal Gastrointestinal: Denies abdominal pain, hematemesis, hematochezia, melena, nausea or vomiting Genitourinary Genitourinary: Denies dysuria Musculoskeletal Musculoskeletal: Denies back pain Integumentary Integumentary: Denies pruritus Neurologic Neurologic: Denies abnormal gait or abnormal speech Psychiatric Psychiatric: Denies anxiety Endocrine Endocrinology: Denies cold intolerance or heat intolerance Hematologic/Lymphatic Hematologic/Lymphatic: Denies anemia Risk Stratification Risk Stratification Applicable: No Objective Data Vital Signs: Vital Signs Temp Pulse Resp BP Pulse Ox O2 Del Method O2 Flow Rate 97.2 F L 133 H 22 H 124/93 H 94 Nasal Cannula 4 02/13/23 12:00 02/13/23 12:45 02/13/23 12:00 02/13/23 12:45 02/13/23 12:00 02/13/23 12:00 02/13/23 12:00 Oxygen Flow Rate (L/min) 4 Oxygen Delivery Method Nasal Cannula Weight: 300 lb 11.368 oz Body Mass Index (BMI) 44.4 Intake & Output: Intake and Output for Last 24 Hours 02/11/23 02/12/23 02/13/23 23:59 23:59 23:59 Intake Total 1425.00 / 1425.00 Output Total 300 / 300 Balance 1125.00 / 1125.00 Lab / Micro Data 02/13/23 03:55 02/13/23 03:55 Labs: Laboratory Results - last 24 hr 02/12/23 23:13: WBC 8.3, RBC 4.32 L, Hgb 12.9 L, Hct 41.4, MCV 95.8 H, MCH 29.9, MCHC 31.2 L, RDW Std Deviation 49.5 H, RDW Coeff of Frank 14.0, Plt Count 192, MPV 9.4, Immature Gran % (Auto) 0.800, Neut % (Auto) 75.2 H, Lymph % (Auto) 16.9 L, [place] % (Auto) 5.0, Eos % (Auto) 1.4, Baso % (Auto) 0.7, Absolute Neuts (auto) 6.3, Absolute Lymphs (auto) 1.41, Nucleated RBC % 0, Sodium 137, Potassium 3.6, Chloride 101, Carbon Dioxide 27.0, Anion Gap 9, BUN 22 H, Creatinine 1.35 H, Estim Creat Clear Calc 56.73, Est GFR (MDRD) Af Amer 69, Est GFR (MDRD) Non-Af 57 L, BUN/Creatinine Ratio 16.3, Glucose 262 H, Calcium 8.5, Troponin I High Sens 32 02/13/23 03:55: WBC 8.5, RBC 4.25 L, Hgb 12.7 L, Hct 40.9, MCV 96.2 H, MCH 29.9, MCHC 31.1 L, RDW Std Deviation 50.0 H, RDW Coeff of Frank 14.2, Plt Count 208, MPV 9.7, Immature Gran % (Auto) 0.700, Neut % (Auto) 69.5, Lymph % (Auto) 20.4, [place] % (Auto) 7.3, Eos % (Auto) 1.3, Baso % (Auto) 0.8, Absolute Neuts (auto) 5.9, Absolute Lymphs (auto) 1.74, Nucleated RBC % 0, PT 14.3, INR 1.1, Sodium 140, Potassium 4.4, Chloride 104, Carbon Dioxide 31.0, Anion Gap 5, BUN 21 H, Creatinine 1.06, Estim Creat Clear Calc 72.26, Est GFR (MDRD) Af Amer 91, Est GFR (MDRD) Non-Af 75, BUN/Creatinine Ratio 19.8, Glucose 132 H, Calcium 8.6 02/13/23 10:45: POC Glucose 108 H Cardiology Labs/Tests 02/12/23 23:13: WBC 8.3, RBC 4.32 L, Hgb 12.9 L, Hct 41.4, MCV 95.8 H, MCH 29.9, MCHC 31.2 L, Plt Count 192, MPV 9.4, Immature Gran % (Auto) 0.800, Neut % (Auto) 75.2 H, Lymph % (Auto) 16.9 L, [place] % (Auto) 5.0, Eos % (Auto) 1.4, Baso % (Auto) 0.7, Absolute Neuts (auto) 6.3, Nucleated RBC % 0, Sodium 137, Potassium 3.6, Chloride 101, Carbon Dioxide 27.0, Anion Gap 9, BUN 22 H, Creatinine 1.35 H, Est GFR (MDRD) Af Amer 69, Est GFR (MDRD) Non-Af 57 L, BUN/Creatinine Ratio 16.3, Glucose 262 H, Calcium 8.5 02/13/23 03:55: WBC 8.5, RBC 4.25 L, Hgb 12.7 L, Hct 40.9, MCV 96.2 H, MCH 29.9, MCHC 31.1 L, Plt Count 208, MPV 9.7, Immature Gran % (Auto) 0.700, Neut % (Auto) 69.5, Lymph % (Auto) 20.4, [place] % (Auto) 7.3, Eos % (Auto) 1.3, Baso % (Auto) 0.8, Absolute Neuts (auto) 5.9, Nucleated RBC % 0, PT 14.3, INR 1.1, Sodium 140, Potassium 4.4, Chloride 104, Carbon Dioxide 31.0, Anion Gap 5, BUN 21 H, Creatinine 1.06, Est GFR (MDRD) Af Amer 91, Est GFR (MDRD) Non-Af 75, BUN/Creatinine Ratio 19.8, Glucose 132 H, Calcium 8.6 Rhythm: EKG: ECHO: Stress Test: Cardiac Cath: PCI: CT Surgery: Holter monitor: EPS: PPM: CXR: Chest CT Scan: Radiography Diagnostic Testing: Radiology Impression Chest X-Ray 02/12/23 22:58 IMPRESSION: No radiographic evidence of acute cardiopulmonary disease. Electronically Signed: Christiano Cedeno MD at 23:36 EDT ,
--- NOTE | 2023-02-13 17:11 | EKG12_ITS ---
Test Reason : converted Blood Pressure : / mmHG Vent. Rate : 133 BPM Atrial Rate : 133 BPM P-R Int : 130 ms QRS Dur : 080 ms QT Int : 300 ms P-R-T Axes : -02 042 024 degrees QTc Int : 446 ms Sinus tachycardia Nonspecific T wave abnormality Abnormal ECG Confirmed by VILMA LONDON, PIERRE ([id number]), video effects editor LEA MARTINEZ ([id number]) on 03/01/2023 2:29:00 PM Referred By: Dr David Confirmed By:PIERRE ESPARZA MD
[2023-02-13 17:19] LABS: Bedside Glucose 119 mg/dL (74-106)
[2023-02-13] MEDS: Atorvastatin Calcium 80 MG Tablet PO (20:36)
[2023-02-14] VITALS (19 sets, daily range): BP systolic 94–148; BP diastolic 59–101; PULSE 69–143; RESP 10–24; TEMP 36.1–37.1; O2SAT 91–100
[2023-02-14] MEDS: APIXABAN 5 MG TABLET PO ×2 (08:17→21:35)
[2023-02-14 09:26] LABS: BUN 23 mg/dL (7-18); Glucose 123 mg/dL (74-106)
[2023-02-14 09:27] LABS: Anion Gap 4 (5-15); BUN/Creat Ratio 25.8 RATIO (10-20); Calcium,Total 8.8 mg/dL (8.5-10.1); Chloride 105 mmol/L (98-107); Creatinine, Serum 0.89 mg/dL (0.70-1.30); EST Glomerular Filtration Rate 92 mL/min (>60); Est Glom Filt Rate - Afr Amer 112 mL/min (>60); Estimated Creatinine Clearance 86.06 ml/min; Magnesium 2.1 mg/dL (1.6-2.6); Potassium 4.2 mmol/L (3.5-5.1); Sodium Level 139 mmol/L (136-145)
[2023-02-14 09:32] LABS: Phosphorus 3.7 mg/dL (2.5-4.9)
--- NOTE | 2023-02-14 09:59 | PRO.PCM_ITS ---
Procedure Report Date of Procedure: 02/14/23 CONSCIOUS SEDATION REPORT DATE OF SERVICE: February 14, 2023 BRIEF HISTORY OF PRESENT ILLNESS: The patient is a 62-year-old male, currently admitted to [facility], after presenting with shortness of breath in the setting of atrial fibrillation with RVR. The patient has a known history of sleep apnea and currently utilizes nocturnal PAP therapy. The patient denied any prior anesthetic complications. He is systemically anticoagulated on Eliquis. His last surface echocardiogram demonstrated an ejection fraction of 65%. PHYSICAL EXAMINATION: VITAL SIGNS: Reviewed and were acceptable. GENERAL: The patient is an obese male, in no apparent distress, speaking in full sentences. HEENT: Normocephalic, atraumatic. Mucous membranes are moist and pink. Good mouth opening noted. Trachea is midline. Good neck mobility. CHEST: S1, S2 irregularly irregular. No murmurs, rubs or gallops were noted. LUNGS: Clear to auscultation bilaterally without appreciable wheezes, rales or rhonchi. ABDOMEN: Soft, nontender, nondistended. Positive bowel sounds. EXTREMITIES: There is no clubbing, cyanosis or edema. ASA Class: II DESCRIPTION OF PROCEDURE: After confirmation of informed consent, the patient's anesthesia plan was reviewed in detail. Propofol was chosen. Risks and benefits were reviewed and the patient agreed to proceed. At 0940, the patient received his first bolus of propofol. In total, the patient required 130 mg of propofol to achieve an elizabeth ropriate level of sedation, after which time, the patient was given a 300 joule synchronized cardioversion by Dr. Elise at the bedside. This was successful in achieving normal sinus rhythm. The patient was monitored until 09, at which time he reached his baseline mental status and function. The patient tolerated the procedure well. COMPLICATIONS: None ESTIMATED BLOOD LOSS: None RECOMMENDATIONS: Okay to recover in usual fashion. Procedures Pulmonary 9xxxx: [id number] Con Sedation
--- NOTE | 2023-02-14 10:33 | PCM.OP.PRO ---
Procedure Report Date of Procedure: 02/14/23 DC cardioversion. 62-year-old male with a history of persistent atrial flutter unresponsive to intravenous medication. Patient has been on anticoagulation. Informed consent was obtained. The patient was seen by Dr. Lee of the critical care division. Anterior-posterior pads were applied. The patient was administered 130 mg of intravenous propofol. 300 J of synchronized DC cardioversion energy were applied with prompt reversal to sinus rhythm. Patient tolerated the procedure well. Conclusion: Successful DC cardioversion from atrial flutter to sinus rhythm. Metoprolol 50 mg twice a day. Continue Eliquis 5 mg twice a day Follow-up as outpatient.
--- NOTE | 2023-02-14 10:48 | PN.CARD_ITS ---
Objective Data Vital Signs: Vital Signs Temp Pulse Resp BP Pulse Ox O2 Del Method O2 Flow Rate 98.8 F 143 H 15 123/101 H 95 Room Air 4 02/14/23 08:00 02/14/23 08:00 02/14/23 08:00 02/14/23 08:00 02/14/23 08:00 02/14/23 08:00 02/13/23 12:00 Oxygen Flow Rate (L/min) 4 Oxygen Delivery Method Room Air Weight: 300 lb 11.368 oz Body Mass Index (BMI) 44.4 Intake & Output: Intake and Output for Last 24 Hours 02/12/23 02/13/23 02/14/23 23:59 23:59 23:59 Intake Total 1756.25 / 1756.25 Output Total 300 / 300 Balance 1456.25 / 1456.25 Lab / Micro Data 02/13/23 03:55 02/14/23 03:20 Labs: Laboratory Results - last 24 hr 02/13/23 10:45: POC Glucose 108 H 02/13/23 16:59: POC Glucose 119 H 02/14/23 03:20: Sodium 139, Potassium 4.2, Chloride 105, Carbon Dioxide 30.0, Anion Gap 4 L, BUN 23 H, Creatinine 0.89, Estim Creat Clear Calc 86.06, Est GFR (MDRD) Af Amer 112, Est GFR (MDRD) Non-Af 92, BUN/Creatinine Ratio 25.8 H, Glucose 123 H, Calcium 8.8, Phosphorus 3.7, Magnesium 2.1 Cardiology Labs/Tests 02/14/23 03:20: Sodium 139, Potassium 4.2, Chloride 105, Carbon Dioxide 30.0, Anion Gap 4 L, BUN 23 H, Creatinine 0.89, Est GFR (MDRD) Af Amer 112, Est GFR (MDRD) Non-Af 92, BUN/Creatinine Ratio 25.8 H, Glucose 123 H, Calcium 8.8, Phosphorus 3.7, Magnesium 2.1 Rhythm: EKG: ECHO: Stress Test: Cardiac Cath: PCI: CT Surgery: Holter monitor: EPS: PPM: CXR: Chest CT Scan: Physical Exam Const alert, oriented x3 and no apparent distress General Appearance: cooperative HEENT normocephalic, head/scalp atraumatic, moist oral mucous membranes and oropharynx normal Eyes PERRL and EOMs intact bilaterally Neck no lymphadenopathy, supple and no JVD Lymph Lymphatic: no lymphadenopathy noted and no lymphedema noted Resp normal respiratory effort, normal air movement and clear to auscultation bilaterally Cardio Cardio Narrative: afib with RVR GI normal to inspection, nondistended, normoactive bowel sounds, soft to palpation, non-tender and non-distended Extremity normal capillary refill, no clubbing, cyanosis or edema and no calf tenderness General Extremity: no tenderness to palpation of joints or extremities Skin General Skin Exam: no breakdown Neuro CN's II-XII intact bilaterally and no focal motor deficits Motor Exam: strength 5/5 throughout and general weakness Psych thought process normal and cooperative Appearance: appropriate Assessment & Plan Assessment/Plan (1) Atrial fibrillation with RVR: PLAN: Patient presents with symptomatic atrial fibrillation with rapid ventricular response rate. His last echocardiogram demonstrated preserved left ventricular systolic function. He has been on anticoagulation with Eliquis and at this time as it is difficult to control his rate I would recommend that we consider DC cardioversion. see note.. (2) Stented coronary artery: PLAN: He does have a coronary artery which is stented, and the mid circumflex artery with a 3.0 x 20 mm Promus Synergy stent and PCI of the ostium of the second obtuse marginal branch with a 2.0 x 12 mm balloon. His ejection fraction was preserved. The rest of the vessels were nonobstructive. (3) Essential hypertension: PLAN: His blood pressure appears to be under good control though it did drop with intravenous Cardizem today (4) HLD (hyperlipidemia): QUALIFIERS: Hyperlipidemia type: unspecified Qualified Code(s): E 78.5 - Hyperlipidemia, unspecified PLAN: He will continue with secondary risk factor modification. (5) Abdominal aortic aneurysm without rupture: PLAN: He does have a stable abdominal aorta. We will continue with the current medical therapy.
[2023-02-14] MEDS: Magnesium Chloride 64 MG Delay Rel.Tablet PO (11:41)
[2023-02-14] MEDS: Aspirin E.C. 81 MG Tablet PO (11:41)
[2023-02-14] MEDS: Pyridoxine HCl 50 MG Tablet PO (11:41)
[2023-02-14] MEDS: Pantoprazole Sodium 40 MG Tablet PO (11:41)
[2023-02-14] MEDS: Metoprolol Tartrate 50 MG Tablet PO ×2 (11:42→21:35)
[2023-02-14] MEDS: Furosemide 40 MG/4 ML Vial IV (11:42)
[2023-02-14] MEDS: Ascorbic Acid 500 MG Tablet PO (11:42)
[2023-02-14 12:06] LABS: Hematocrit 43.2 % (40-54); Mean Corp Hgb Conc 32.4 g/dL (32-36); Mean Corpuscular Volume 95.8 fL (80-94); Platelet Count 205 K/mm3 (150-450); RBC Distribution Width CV 14.2 % (11.6-14.6); RBC Distribution Width SD 49.9 fl (35.1-43.9); Red Blood Count 4.51 M/mm3 (4.6-6.2); White Blood Count 7.9 K/mm3 (4.4-11.0)
[2023-02-14 12:07] LABS: Absolute Lymphocyte Count 2.48 X10^3/uL (0.83-4.51); Absolute Neutrophil Count 4.4 X10^3/uL (2.0-7.7); Basophil# 0.08 X10^3/uL; Eosinophil# 0.27 X10^3/uL; Eosinophils% 3.4 % (0-5); Lymphocyte # 2.48 X10^3/ul (0.83-4.51); Lymphocyte % 31.3 % (19-41); Mean Platelet Vol. 9.7 fl (6.2-12.0); Monocyte# 0.65 X10^3/uL; Monocyte% 8.2 % (0-10); Neutrophil # 4.39 X10^3/uL (2.7-7.7); Neutrophil % 55.5 % (47-70)
[2023-02-14] MEDS: Propofol 200 MG/20 ML Vial 130 MG IV BOLUS (12:07)
[2023-02-14 12:08] LABS: NRBC Flagged by Analyzer 0 % (0-5)
--- NOTE | 2023-02-14 15:56 | PN_ITS ---
Subjective Subjective Patient seen and examined. He had cardioversion today and felt well. He had no active complaints. HE was on5L of oxygen at time of my review. Review of systems was otherwise negative. Objective Data Objective Data Vital Signs: Vital Signs Temp Pulse Resp BP Pulse Ox O2 Del Method O2 Flow Rate 98.2 F 75 20 H 148/79 H 93 Room Air 5 02/14/23 10:15 02/14/23 11:42 02/14/23 11:00 02/14/23 11:00 02/14/23 11:00 02/14/23 11:00 02/14/23 09:56 Oxygen Flow Rate (L/min) 5 Oxygen Delivery Method Room Air Weight: 300 lb 11.368 oz Body Mass Index (BMI) 44.4 Intake & Output: Intake and Output for Last 24 Hours 02/12/23 02/13/23 02/14/23 23:59 23:59 23:59 Intake Total 1756.25 / 1756.25 Output Total 300 / 300 Balance 1456.25 / 1456.25 Lab / Micro Data 02/14/23 03:20 02/14/23 03:20 Labs: Laboratory Results - last 24 hr 02/13/23 16:59: POC Glucose 119 H 02/14/23 03:20: WBC 7.9, RBC 4.51 L, Hgb 14.0, Hct 43.2, MCV 95.8 H, MCH 31.0, MCHC 32.4, RDW Std Deviation 49.9 H, RDW Coeff of Frank 14.2, Plt Count 205, MPV 9.7, Immature Gran % (Auto) 0.600, Neut % (Auto) 55.5, Lymph % (Auto) 31.3, [place] % (Auto) 8.2, Eos % (Auto) 3.4, Baso % (Auto) 1.0, Absolute Neuts (auto) 4.4, Absolute Lymphs (auto) 2.48, Nucleated RBC % 0, Sodium 139, Potassium 4.2, Chloride 105, Carbon Dioxide 30.0, Anion Gap 4 L, BUN 23 H, Creatinine 0.89, Estim Creat Clear Calc 86.06, Est GFR (MDRD) Af Amer 112, Est GFR (MDRD) Non-Af 92, BUN/Creatinine Ratio 25.8 H, Glucose 123 H, Calcium 8.8, Phosphorus 3.7, Magnesium 2.1 Physical Exam Const alert, oriented x3 and no apparent distress General Appearance: cooperative and well developed HEENT normocephalic, head/scalp atraumatic, moist oral mucous membranes and oropharynx normal Eyes PERRL and EOMs intact bilaterally Neck no lymphadenopathy, supple and no JVD Lymph Lymphatic: no lymphadenopathy noted and no lymphedema noted Resp Resp Narrative: mildly diminished breath sounds bibasally, no wheezes or Cardio regular rate, regular rhythm, S1 normal heart sound, S2 normal heart sound and no murmurs Rhythm: abnormal rhythm irregularly irregular Heart Sounds: Negative for gallop, murmur or rub GI normal to inspection, nondistended, normoactive bowel sounds, soft to palpation, non-tender and non-distended Extremity normal capillary refill, no clubbing, cyanosis or edema and no calf tenderness General Extremity: no tenderness to palpation of joints or extremities Skin General Skin Exam: no breakdown Neuro CN's II-XII intact bilaterally, no focal motor deficits and no sensory deficits noted Motor Exam: strength 5/5 throughout and general weakness Psych thought process normal, cooperative and affect normal Appearance: appropriate Assessment & Plan Assessment/Plan (1) Atrial fibrillation with RVR: PLAN: Plan #Afib with RVR * s/p cardioversion today. Now in NSR * cardiology on board. On eliquis * started on metoprolol 50mg bid. * Last echo in EMR from April 2022 showed EF of 65% with normal left ve ntricular systolic function and no evidence of diastolic dysfunction. #Hypoxia: * Patient currently on 5 L of oxygen. * Likely as a sequelae of the cardioversion. Patient's shortness of breath had improved and he was being weaned off the oxygen at time of my review. * Will monitor. Given a dose of IV Lasix 40x1. * #Type 2 diabetes mellitus: On metformin. Insulin sliding scale. Accu-Cheks AC HS. Also on semaglutide #Hypertension: Losartan held due to patient being on cardizem drip. #CAD s/p stents: On aspirin and high intensity statin. DVT prophylaxis: Already on Eliquis Charges/Coding Visit Charges Inpatient E&M: 21761 Subs Hosp L2
[2023-02-14] MEDS: Atorvastatin Calcium 80 MG Tablet PO (21:35)
[2023-02-14] MEDS: metFORMIN (XR) 500 MG Tablet 1000 MG PO (21:36)
[2023-02-15 02:00] VITALS: BP 142/82; PULSE 68; RESP 17; TEMP 36.1; O2SAT 96
[2023-02-15 03:16] LABS: Absolute Lymphocyte Count 2.25 X10^3/uL (0.83-4.51); Absolute Neutrophil Count 4.9 X10^3/uL (2.0-7.7); Basophil# 0.11 X10^3/uL; Basophil% 1.3 % (0-1); Eosinophil# 0.36 X10^3/uL; Eosinophils% 4.3 % (0-5); Hematocrit 47.3 % (40-54); Hemoglobin 14.9 g/dL (13.0-16.5); Lymphocyte # 2.25 X10^3/ul (0.83-4.51); Lymphocyte % 26.8 % (19-41); Mean Corp Hgb Conc 31.5 g/dL (32-36); Mean Corpuscular Volume 95.4 fL (80-94); Mean Platelet Vol. 9.7 fl (6.2-12.0); Monocyte# 0.65 X10^3/uL; Monocyte% 7.8 % (0-10); NRBC Flagged by Analyzer 0 % (0-5); Neutrophil # 4.91 X10^3/uL (2.7-7.7); Neutrophil % 58.6 % (47-70); Platelet Count 239 K/mm3 (150-450); RBC Distribution Width CV 14.1 % (11.6-14.6); RBC Distribution Width SD 49.2 fl (35.1-43.9); Red Blood Count 4.96 M/mm3 (4.6-6.2); White Blood Count 8.4 K/mm3 (4.4-11.0)
[2023-02-15 03:28] LABS: Anion Gap 5 (5-15); BUN 22 mg/dL (7-18); BUN/Creat Ratio 21.6 RATIO (10-20); Calcium,Total 9.1 mg/dL (8.5-10.1); Chloride 102 mmol/L (98-107); Creatinine, Serum 1.02 mg/dL (0.70-1.30); EST Glomerular Filtration Rate 79 mL/min (>60); Est Glom Filt Rate - Afr Amer 95 mL/min (>60); Estimated Creatinine Clearance 75.09 ml/min; Glucose 138 mg/dL (74-106); Potassium 4.3 mmol/L (3.5-5.1); Sodium Level 137 mmol/L (136-145)
[2023-02-15 07:41] VITALS: O2SAT 95
[2023-02-15 08:00] VITALS: BP 149/95; PULSE 71; RESP 14; TEMP 36; O2SAT 94
[2023-02-15 09:05] VITALS: PULSE 69
[2023-02-15] MEDS: Pyridoxine HCl 50 MG Tablet PO (09:05)
[2023-02-15] MEDS: Aspirin E.C. 81 MG Tablet PO (09:05)
[2023-02-15] MEDS: Metoprolol Tartrate 50 MG Tablet PO (09:05)
[2023-02-15] MEDS: Magnesium Chloride 64 MG Delay Rel.Tablet PO (09:05)
[2023-02-15] MEDS: Ascorbic Acid 500 MG Tablet PO (09:05)
[2023-02-15] MEDS: Pantoprazole Sodium 40 MG Tablet PO (09:05)
[2023-02-15] MEDS: APIXABAN 5 MG TABLET PO (09:05)
--- NOTE | 2023-02-15 10:55 | DS.PCM_ITS ---
Providers Date of Admission: 02/13/23 Date of Discharge: 02/15/23 Primary Care Physician: Dr. Sandhya Priest MD Consultations 02/13/23 10:59 Consult: Cardiology Routine Consulting Provider: Lee Elise Reason for Consult: AFib with RVR EMERGENT Consult: No MD Notified: Yes Date Notified: 02/13/23 Time Notified: 10:59 Method of Notification: Text Reason For Visit: ATRIAL FIBRILLATION WITH RAPID VENTRICULAR RESPONS Diagnosis Discharge Diagnosis (1) Atrial fibrillation with RVR: Status: Acute Code(s): I48.91 - Unspecified atrial fibrillation Plan #Afib with RVR * s/p cardioversion today. Now in NSR * cardiology on board. On eliquis * started on metoprolol 50mg bid. * Last echo in EMR from April 2022 showed EF of 65% with normal left ventricular systolic function and no evidence of diastolic dysfunction. #Hypoxia: * Patient currently on 5 L of oxygen. * Likely as a sequelae of the cardioversion. Patient's shortness of breath had improved and he was being weaned off the oxygen at time of my review. * Will monitor. Given a dose of IV Lasix 40x1. * #Type 2 diabetes mellitus: On metformin. Insulin sliding scale. Accu-Cheks ACHS. Also on semaglutide #Hypertension: Losartan held due to patient being on cardizem drip. #CAD s/p stents: On aspirin and high intensity statin. DVT prophylaxis: Already on Eliquis Medications at Discharge Home Medications acetaminophen 325 mg tablet 650 mg (2 x 325 mg) PO Q6H PRN PRN Mild Pain (0- 2/10) 09/25/18 aspirin 81 mg tablet,delayed release 81 mg PO DAILY@0800 see pcp 09/25/18 coenzyme Q10 200 mg capsule (Co Q-10) 200 mg PO DAILY see pcp 10/11/18 metformin 500 mg tablet,extended release 24 hr 1,000 mg PO DAILY see pcp 10/11/18 atorvastatin 80 mg tablet 80 mg PO DAILY see pcp 05/16/19 ascorbic acid (vitamin C) 500 mg capsule,extended release 500 mg PO DAILY see pcp 11/13/19 pyridoxine (vitamin B6) 50 mg capsule (Vitamin B-6) 50 mg PO DAILY see pcp 11/13/19 losartan 25 mg tablet 25 mg PO BID see pc #180 tabs 11/22/21 semaglutide 0.25 mg or 0.5 mg (2 mg/1.5 mL) subcutaneous pen injector (Ozempic) 0.25 mg subcut QWEEK see pcp 01/24/22 albuterol sulfate 90 mcg/actuation aerosol inhaler (Ventolin HFA) 2 puff inhalation Q4H PRN PRN Wheezing #8.5 grams 02/23/22 pantoprazole 40 mg tablet,delayed release 40 mg PO DAILY see pcp 03/31/22 apixaban 5 mg tablet (Eliquis) 5 mg PO BID see pcp #180 tabs 12/05/22 alfuzosin 10 mg tablet,extended release 24 hr 10 mg PO DAILY see pcp 02/13/23 fhqgvdr-[id number]-dlma 333 mg-133 mg-5 mg tablet 1 tab PO DAILY see pcp 02/13/23 metoprolol tartrate 50 mg tablet 50 mg PO BID #60 tabs 02/15/23 Hospital Course Operations None Procedures Cardioversion Summary of Care Provided Minutes Spent on Discharge: 55 Hospital Course: Patient is a 60-year-old male with a past medical history as outlined was admitted through the ED on 11/13/2022 on account of heart palpitations. He has a history of A-fib. He felt like his heart rate was very fast and so he came into the ED. He was found to be in A-fib with RVR. Chest x-ray showed no acute cardiopulmonary process and troponins were negative. He was admitted and [facility] for A-fib with RVR. He was placed on Cardizem drip but was still tachycardic. He had an echo in April 2022 which showed EF of 65% with normal left ventricular systolic function and no evidence of diastolic dysfunction. Cardiology was consulted. Patient had a cardioversion on 02/14/2023. He went into normal sinus rhythm. He was placed on metoprolol 50 mg twice daily. Losartan was resumed. He was discharged home on 02/16/2023. He is to follow-up with his primary care doctor and follow-up with cardiology. Patient seen and examined prior to discharge. He had no complaints and had an uneventful night. Review of systems otherwise negative. Labs and vitals reviewed. Home medication reviewed and reconciled. Physical Exam Const alert, oriented x3 and no apparent distress General Appearance: cooperative, comfortable, well kempt and well developed HEENT normocephalic, head/scalp atraumatic, hearing grossly normal bilaterally, moist oral mucous membranes and oropharynx normal Mouth: oral and palatal mucosa normal Eyes PERRL, EOMs intact bilaterally and conjunctivae normal Neck no lymphadenopathy, supple and no JVD Lymph Lymphatic: no lymphadenopathy noted and no lymphedema noted Resp normal respiratory effort, normal air movement and clear to auscultation bilaterally Cardio regular rate, regular rhythm, S1 normal heart sound, S2 normal heart sound and no murmurs Rhythm: abnormal rhythm irregularly irregular Heart Sounds: Negative for gallop, murmur or rub GI normal to inspection, nondistended, normoactive bowel sounds, soft to palpation, non-tender and non-distended Extremity normal to inspection, full ROM, normal capillary refill, no clubbing, cyanosis or edema and no calf tenderness General Extremity: edema and no tenderness to palpation of joints or extremities Skin General Skin Exam: no breakdown Neuro oriented x3, CN's II-XII intact bilaterally, moves all extremities, no focal motor deficits and no sensory deficits noted Sensorium / Orientation: awake Motor Exam: strength 5/5 throughout and general weakness Psych thought process normal, cooperative and affect normal Appearance: appropriate Weight / BMI Weight Weight: 300 lb 11.368 oz Body Mass Index (BMI) 44.4 ABG / Lab / Microbiology Data 02/15/23 03:05 02/15/23 03:05 Laboratory: Laboratory Results - last 24 hr 02/14/23 03:20: WBC 7.9, RBC 4.51 L, Hgb 14.0, Hct 43.2, MCV 95.8 H, MCH 31.0, MCHC 32.4, RDW Std Deviation 49.9 H, RDW Coeff of Frank 14.2, Plt Count 205, MPV 9.7, Immature Gran % (Auto) 0.600, Neut % (Auto) 55.5, Lymph % (Auto) 31.3, [place] % (Auto) 8.2, Eos % (Auto) 3.4, Baso % (Auto) 1.0, Absolute Neuts (auto) 4.4, Absolute Lymphs (auto) 2.48, Nucleated RBC % 0 02/15/23 03:05: WBC 8.4, RBC 4.96, Hgb 14.9, Hct 47.3, MCV 95.4 H, MCH 30.0, MCHC 31.5 L, RDW Std Deviation 49.2 H, RDW Coeff of Frank 14.1, Plt Count 239, MPV 9.7, Immature Gran % (Auto) 1.200 H, Neut % (Auto) 58.6, Lymph % (Auto) 26.8, [place] % (Auto) 7.8, Eos % (Auto) 4.3, Baso % (Auto) 1.3 H, Absolute Neuts (auto) 4.9, Absolute Lymphs (auto) 2.25, Nucleated RBC % 0, Sodium 137, Potassium 4.3, Chloride 102, Carbon Dioxide 30.0, Anion Gap 5, BUN 22 H, Creatinine 1.02, Estim Creat Clear Calc 75.09, Est GFR (MDRD) Af Amer 95, Est GFR (MDRD) Non-Af 79, BUN/Creatinine Ratio 21.6 H, Glucose 138 H, Calcium 9.1 D/C Instructions Discharge Diet: Low fat / Low cholesterol Weight Bearing Status: Weight bearing as tolerated Call your doctor if you observe: Fever of 101 or Higher, Shortness of breath, Di zziness, Swelling in the ankles and Chest pain Meaningful Use Info Meaningful Use Diagnoses (Choose all that apply): None applicable Discharge Plan Admission Admit Date/Time: 02/13/23 02:04 Primary Reason for Your Visit: afib with RVR Attending Provider: Lourdes David Primary Care Provider: Sandhya Priest Consulting Providers: William Victor; Lee Elise Instructions Patient Instructions: AFib Dc Discharge Orders/Prescriptions Prescriptions: New metoprolol tartrate 50 mg Tablet 50 mg PO BID Qty: 60 2RF Continued coenzyme Q10 [Co Q-10] 200 mg capsule 200 mg PO DAILY atorvastatin 80 mg tablet 80 mg PO DAILY pyridoxine (vitamin B6) 50 mg capsule 50 mg capsule 50 mg PO DAILY ascorbic acid (vitamin C) 500 mg capsule, extended release 500 mg PO DAILY Ozempic 0.25 mg or 0.5 mg(2 mg/1.5 mL) pen injector 0.25 mg subcut QWEEK pantoprazole 40 mg tablet,delayed release (DR/EC) 40 mg PO DAILY acetaminophen 325 MG tablet 650 mg PO Q6H PRN PRN (Reason: Mild Pain (0-2/10)) 0RF aspirin 81 MG tablet 81 mg PO DAILY@0800 0RF metformin 500 mg tablet extended release 24 hr 1,000 mg PO DAILY albuterol sulfate [Ventolin HFA] 90 mcg/actuation HFA aerosol inhaler 2 puff inhalation Q4H PRN PRN (Reason: Wheezing) Qty: 8.5 0RF alfuzosin 10 mg tablet extended release 24 hr 10 mg PO DAILY Patient Comments: TAKE 1 TABLET BY MOUTH EVERY NIGHT AT BEDTIME [id number]-wwcftaqdn-mmpo 333-133-5 mg tablet 1 tab PO DAILY losartan 25 mg tablet 25 mg PO BID Qty: 180 3RF Eliquis 5 mg tablet 5 mg PO BID Qty: 180 3RF Referrals / Follow Up: Sandhya Priest MD [Primary Care Provider] - Within 2 Weeks Lee Elise MD [Med Staff - Active Staff] - Within 2 Weeks Disposition Disposition (needs filled in before D/C Order can be placed): Home, Self Care Charges/Coding Visit Charges Inpatient E&M: 75173 Disch Hosp >30min
== END 2023-02-15 11:19 | disposition home or self-care (01) | DRG 309 ==
LOC: ED 23:14 → ICU 02-13 02:09
PROVIDERS: Family Medicine; Admitting Provider Family Medicine; Emergency Provider Emergency Medicine; PCP Internal Medicine; Visit Provider Student in an Organized Health Care Education/Training Program
DX: I48.0 Paroxysmal atrial fibrillation (principal); Z68.41 Body mass index [BMI] 40.0-44.9, adult; E11.8 Type 2 diabetes mellitus with unspecified complications; E66.01 Morbid (severe) obesity due to excess calories; Z79.4 Long term (current) use of insulin; I71.40 Abdominal aortic aneurysm, without rupture, unspecified; I10 Essential (primary) hypertension; I25.10 Atherosclerotic heart disease of native coronary artery without angina pectoris; E78.5 Hyperlipidemia, unspecified; G47.33 Obstructive sleep apnea (adult) (pediatric); I49.8 Other specified cardiac arrhythmias; I25.2 Old myocardial infarction; R00.2 Palpitations; Z95.5 Presence of coronary angioplasty implant and graft; Z79.01 Long term (current) use of anticoagulants; Z87.891 Personal history of nicotine dependence; Z79.82 Long term (current) use of aspirin; R09.02 Hypoxemia
CPT/HCPCS: 71045; 80048; 82962; 83735; 84100; 84484; 85025; 85610; 93005; 94002; 97802; 99285; 99406; J7030; A4216; J1940; J2405

== ENCOUNTER 2023-11-28 22:22 | Emergency (ER) | payer BC, SELFPAY ==
[2023-11-28 22:23] VITALS: BP 100/71; PULSE 165; RESP 20; TEMP 36.9; O2SAT 99; BMI 40.8
[2023-11-28] MEDS: Adenosine 6 MG/2 ML Syringe IV (22:42)
[2023-11-28 22:43] LABS: Absolute Lymphocyte Count 3.61 X10^3/uL (0.83-4.51); Basophil# 0.13 X10^3/uL; Basophil% 1.3 % (0-1); Eosinophil# 0.19 X10^3/uL; Eosinophils% 1.9 % (0-5); Hematocrit 45.5 % (40-54); Hemoglobin 14.8 g/dL (13.0-16.5); Lymphocyte # 3.61 X10^3/ul (0.83-4.51); Lymphocyte % 36.3 % (19-41); Mean Corp Hgb Conc 32.5 g/dL (32-36); Mean Corpuscular Hgb 30.5 pg (27.0-32.0); Mean Corpuscular Volume 93.6 fL (80-94); Mean Platelet Vol. 9.2 fl (6.2-12.0); Monocyte# 0.78 X10^3/uL; Monocyte% 7.8 % (0-10); NRBC Flagged by Analyzer 0 % (0-5); Neutrophil # 5.02 X10^3/uL (2.7-7.7); Neutrophil % 50.5 % (47-70); Platelet Count 258 K/mm3 (150-450); RBC Distribution Width CV 14.8 % (11.6-14.6); RBC Distribution Width SD 51.2 fl (35.1-43.9); Red Blood Count 4.86 M/mm3 (4.6-6.2)
[2023-11-28] MEDS: Adenosine 6 MG/2 ML Syringe 12 MG IV (22:44)
--- NOTE | 2023-11-28 22:46 | EKG12_ITS ---
Test Reason : SVT Blood Pressure : / mmHG Vent. Rate : 165 BPM Atrial Rate : 000 BPM P-R Int : 000 ms QRS Dur : 086 ms QT Int : 276 ms P-R-T Axes : 000 046 040 degrees QTc Int : 457 ms Critical Test Result: High HR Supraventricular tachycardia Nonspecific ST and T wave abnormality Abnormal ECG Confirmed by VILMA LONDON, PIERRE ([id number]), video tape editor KODY CHARLES ([id number]) on 11/29/2023 1:02:58 PM Referred By: YG Confirmed By:PIERRE ESPARZA MD
[2023-11-28] MEDS: 0.9% Normal Saline (1000mL) 1,000 ML 999 ML IV (22:49)
[2023-11-28 22:52] LABS: International Normalized Ratio 1.1; Prothrombin Time (Protime)PT. 14.5 SECONDS (11.7-14.9)
[2023-11-28 22:53] LABS: Partial Thromboplast Time 29.4 Seconds (24.1-36.2)
[2023-11-28 23:12] LABS: Anion Gap 9 (5-15); BUN 21 mg/dL (7-18); Calcium,Total 9.2 mg/dL (8.5-10.1); Chloride 102 mmol/L (98-107); EST Glomerular Filtration Rate 80 mL/min (>60); Est Glom Filt Rate - Afr Amer 97 mL/min (>60); Estimated Creatinine Clearance 99.01 ml/min; Glucose 152 mg/dL (74-106); Magnesium 2.2 mg/dL (1.6-2.6); Potassium 3.9 mmol/L (3.5-5.1); Sodium Level 135 mmol/L (136-145); Thyroid Stim Hormone (TSH) 4.28 uIU/mL (0.358-3.74)
[2023-11-28 23:23] VITALS: BP 123/107; PULSE 71; RESP 15; O2SAT 93
[2023-11-29] VITALS: BP 119/85; PULSE 73; RESP 22; O2SAT 93
--- NOTE | 2023-11-29 00:11 | EDS_ITS ---
HPI History of Present Illness Chief Complaint: Palpitations Informant: patient and family Narrative Narrative: Patient is a 63-year-old male with past medical history of hypertension hyperlipidemia paroxysmal atrial fibrillation currently on Eliquis and type 2 di abetes. He states that he was sitting around waiting for dinner to be made around 7 PM when he began to feel like his heart was racing. He states has been taking all of his medications as directed. He denies any excessive stimulant use or illicit drug use. He states he sat around waiting for the heart racing to resolve but it would not do so and does seem to be getting worse and secondary to his he comes in for evaluation [facility] Medical History History of cardioversion Afib PAF (paroxysmal atrial fibrillation) Abdominal aortic aneurysm without rupture Essential hypertension Abdominal aortic aneurysm Tobacco abuse Obstructive sleep apnea History of non-ST elevation myocardial infarction (NSTEMI) (09/24/18) Atherosclerotic heart disease of [place] coronary artery without angina pectoris NSTEMI (non-ST elevated myocardial infarction) History of supraventricular tachycardia Diabetes mellitus, type II Obesity (BMI 30-39.9) HLD (hyperlipidemia) HTN (hypertension) Chest pain Home Medications ?Medication ?Instructions ?Recorded ?Last Taken ?Type acetaminophen 325 mg tablet 650 mg (2 x 325 mg) PO Q6H PRN PRN 09/25/18 Unknown Rx Mild Pain (0-2/10) aspirin 81 mg tablet,delayed 81 mg PO DAILY@0800 see pcp 09/25/18 Unknown Rx release coenzyme Q10 200 mg capsule (Co 400 mg PO DAILY see pcp 10/11/18 Unknown History Q-10) metformin 500 mg tablet,extended 1,000 mg PO DAILY see pcp 10/11/18 Unknown History release 24 hr atorvastatin 80 mg tablet 80 mg PO DAILY see pcp 05/16/19 Unknown History ascorbic acid (vitamin C) 500 mg 500 mg PO DAILY see pcp 11/13/19 Unknown His tory capsule,extended release pyridoxine (vitamin B6) 50 mg 50 mg PO DAILY see pcp 11/13/19 Unknown History capsule (Vitamin B-6) losartan 25 mg tablet 25 mg PO BID see pc #180 tabs 11/22/21 Unknown Rx semaglutide 0.25 mg or 0.5 mg (2 0.25 mg subcut QWEEK see pcp 01/24/22 Unknown History mg/1.5 mL) subcutaneous pen injector (Ozempic) albuterol sulfate 90 mcg/actuation 2 puff inhalation Q4H PRN PRN 02/23/22 Unknown Rx aerosol inhaler (Ventolin HFA) Wheezing #8.5 grams pantoprazole 40 mg tablet,delayed 40 mg PO DAILY see pcp 03/31/22 Unknown History release alfuzosin 10 mg tablet,extended 10 mg PO DAILY see pcp 02/13/23 02/13/23 History release 24 hr gqsmfrr-itclzigqc-pmzw 333 mg-133 1 tab PO DAILY see pcp 02/13/23 Unknown History mg-5 mg tablet metoprolol tartrate 50 mg tablet 50 mg PO BID #60 tabs 02/15/23 Unknown Rx apixaban 5 mg tablet (Eliquis) 5 mg PO BID see pcp #180 tabs 10/15/23 Unknown Rx blood sugar diagnostic (Accu-Chek 11/28/23 Unknown History Guide test strips) lancets (Accu-Chek Softclix 11/28/23 Unknown History Lancets) Allergy/AdvReac Type Severity Reaction Status Date / Time rosuvastatin (From Crestor) AdvReac Severe Severe Verified 11/28/23 22:28 myalgias (legs) codeine AdvReac Other Verified 11/28/23 22:28 Family History Mother Heart disease Pacemaker Father Stomach cancer Liver cancer Surgical History History of appendectomy History of thumb surgery Stented coronary artery (09/24/18) Social History Smoking Status: Former smoker quit date: 09/24/18 pack-years: 40 alcohol intake: current alcohol intake frequency: 0-2 drinks per day Alcohol type: beer caffeine: No ROS ROS ED Constitutional Constitutional ED: Denies chills or fever(s) Eyes Eyes: Denies blurry vision or change in vision ENT ENT ED: Denies sore throat Cardiovascular Cardiovascular: Reports palpitations and racing heartbeat; Denies chest pain Respiratory/Chest Respiratory/Chest: Reports dyspnea; Denies cough Gastrointestinal Gastrointestinal: Reports nausea; Denies abdominal pain, diarrhea or vomiting Genitourinary Genitourinary ED: Denies dysuria Musculoskeletal Musculoskeletal: Denies myalgias Integumentary Denies rash Neurologic Neurologic: Denies headache(s) Hematologic/Lymphatic Hematologic/Lymphatic: Reports easy bleeding and easy bruising EXAM Physical Exam Const Vital Signs: 11/28/23 22:23 11/28/23 22:50 11/28/23 23:23 Temperature 98.4 F Temperature Source Oral Pulse Rate 165 H 71 Respiratory Rate 20 H 15 Respiratory Effort Normal Blood Pressure 100/71 123/107 H Blood Pressure Mean 80 112 Pulse Ox 99 93 Oxygen Delivery Method Room Air Room Air 11/29/23 00:00 11/29/23 00:18 Temperature 98.4 F Temperature Source Pulse Rate 73 73 Respiratory Rate 22 H 20 H Respiratory Effort Blood Pressure 119/85 H 119/85 H Blood Pressure Mean 96 96 Pulse Ox 93 95 Oxygen Delivery Method Room Air Positive well nourished, well developed and obese General Appearance ED: well developed; Negative for pallor Nutritional Appearance: obese HEENT HEENT Narrative: Normocephalic atraumatic Eyes PERRL and EOMs intact bilaterally General Eye ED: Negative for pale conjunctiva or scleral icterus Neck supple and no JVD Chest Wall palpation of chest normal Resp normal respiratory effort and clear to auscultation bilaterally Cardio regular rhythm Rate: tachycardic and other Other Details: Tachycardic rate with regular rhythm Radial and carotid pulses are equal and symmetric GI normal to inspection, nondistended, normoactive bowel sounds, non-tender, non- distended and no masses GI Narrative: No voluntary guarding or rigidity or pulsatile mass Auscultation: normoactive bowel sounds Palpation: soft Extremity normal to inspection Extremity Narrative: No asymmetric edema no pitting edema negative Homans' sign bilaterally Neuro oriented x3, CN's II-XII intact bilaterally and no sensory deficits noted Sensorium / Orientation: alert Motor Exam: strength 5/5 throughout Psych mental status grossly normal Skin no rashes or lesions noted General Skin Exam: Negative for jaundice or pallor MDM MDM MDM Narrative Medical decision making narrative: Patient arrived to the ER tachycardic at approximate 160 bpm. On exam he appeared in a regular rhythm which would go against A-fib or a flutter and EKG was obtained which showed changes most consistent with supraventricular tachycardia. Secondary to this patient was given a dose of 6 mg of adenosine which did not cause any change to his rhythm. He was then given 12 mg and had spontaneous conversion to normal sinus rhythm. In order to ensure there is no signs of acute blood loss anemia acute kidney injury or electrolyte disturbance as a cause of his SVT basic blood work was obtained and patient was given 1 L of normal saline. Lab work revealed no clinically significant findings and patient remained in normal sinus rhythm for the remainder of his ER visit. Therefore at this time as he is anticoagulated back in normal sinus rhythm and has no lab abnormalities he is otherwise safe for discharge and can follow-up on an outpatient basis. History & Record Review Discussion w/independent historian: Patient and Family Lab Data Attestation: I reviewed the patient's lab results. Labs: Laboratory Results - last 24 hr 11/28/23 22:36 WBC 10.0 RBC 4.86 Hgb 14.8 Hct 45.5 MCV 93.6 MCH 30.5 MCHC 32.5 RDW Std Deviation 51.2 H RDW Coeff of Frank 14.8 H Plt Count 258 MPV 9.2 Immature Gran % (Auto) 2.200 H Neut % (Auto) 50.5 Lymph % (Auto) 36.3 [place] % (Auto) 7.8 Eos % (Auto) 1.9 Baso % (Auto) 1.3 H Absolute Neuts (auto) 5.0 Absolute Lymphs (auto) 3.61 Nucleated RBC % 0 PT 14.5 INR 1.1 APTT 29.4 Sodium 135 L Potassium 3.9 Chloride 102 Carbon Dioxide 24.0 Anion Gap 9 BUN 21 H Creatinine 1.00 Estim Creat Clear Calc 99.01 Est GFR (MDRD) Af Amer 97 Est GFR (MDRD) Non-Af 80 BUN/Creatinine Ratio 21.0 H Glucose 152 H Calcium 9.2 Magnesium 2.2 TSH 4.28 H Critical Care Time Critical Care Time: Yes Critical care time (excluding procedures): Discussing w/Patient &/or Family/Industrial Relations Worker, Performing Direct Patient Care at Bedside and - (Critical care time of 27 minutes) Discharge Plan Triage Chief Complaint: Palpitations ED Provider: Carlito Moon Dx/Rx/DC Orders Clinical Impression: SVT (supraventricular tachycardia), HTN (hypertension), HLD (hyperlipidemia), Current use of medical terminologist anticoagulation, Type 2 diabetes mellitus Instructions: ED Understanding Supraventricular Tachycardia (SVT) Prescriptions: No Action coenzyme Q10 [Co Q-10] 200 mg capsule 400 mg PO DAILY atorvastatin 80 mg tablet 80 mg PO DAILY Vitamin B-6 50 mg capsule 50 mg PO DAILY ascorbic acid (vitamin C) 500 mg capsule, extended release 500 mg PO DAILY Ozempic 0.25 mg or 0.5 mg(2 mg/1.5 mL) pen injector 0.25 mg subcut QWEEK pantoprazole 40 mg tablet,delayed release (DR/EC) 40 mg PO DAILY acetaminophen 325 MG tablet 650 mg PO Q6H PRN PRN (Reason: Mild Pain (0-210)) 0RF aspirin 81 MG tablet 81 mg PO DAILY@0800 0RF metformin 500 mg tablet extended release 24 hr 1,000 mg PO DAILY albuterol sulfate [Ventolin HFA] 90 mcg/actuation HFA aerosol inhaler 2 puff inhalation Q4H PRN PRN (Reason: Wheezing) Qty: 8.5 0RF alfuzosin 10 mg tablet extended release 24 hr 10 mg PO DAILY Patient Comments: TAKE 1 TABLET BY MOUTH EVERY NIGHT AT BEDTIME hokbskh-anizvaiky-dftw 333-133-5 mg tablet 1 tab PO DAILY metoprolol tartrate 50 mg Tablet 50 mg PO BID Qty: 60 2RF (DME) Accu-Chek Guide test strips Strip MISCELLANEOUS DAILY (DME) lancets [Accu-Chek Softclix Lancets] Misc MISCELLANEOUS DAILY losartan 25 mg tablet 25 mg PO BID Qty: 180 3RF Eliquis 5 mg tablet 5 mg PO BID Qty: 180 3RF Primary Care Provider: Sandhya Priest Referrals: Sandhya Priest MD [Primary Care Provider] - Activity Restrictions/Additional Instructions: Please continue all of your home medications as previously directed and follow- up with your family doctor and/or bonbon dipper for repeat evaluation. Return to the ER should you have any further concerns Print Language: Welsh Disposition Disposition: Home, Self Care Discharge Date/Time: 11/29/23 00:18
[2023-11-29 00:18] VITALS: BP 119/85; PULSE 73; RESP 20; TEMP 36.9; O2SAT 95
== END 2023-11-29 00:18 | disposition home or self-care (01) ==
PROVIDERS: Emergency Provider Emergency Medicine; PCP Internal Medicine; Visit Provider Emergency Medicine
DX: I47.10 Supraventricular tachycardia, unspecified (principal); I48.0 Paroxysmal atrial fibrillation; E11.9 Type 2 diabetes mellitus without complications; I25.10 Atherosclerotic heart disease of native coronary artery without angina pectoris; Z79.01 Long term (current) use of anticoagulants; Z87.891 Personal history of nicotine dependence; R00.2 Palpitations; I10 Essential (primary) hypertension; E78.5 Hyperlipidemia, unspecified; E66.9 Obesity, unspecified; Z79.82 Long term (current) use of aspirin; I25.2 Old myocardial infarction; G47.33 Obstructive sleep apnea (adult) (pediatric)
CPT/HCPCS: 80048; 83735; 84443; 85025; 85610; 85730; 93005; 96360; 99283; A4216; J0153

== ENCOUNTER → 2024-01-04 | Outpatient (CLI) | payer BC, SELFPAY ==
--- NOTE | 2024-01-04 08:53 | AAVD_ITS ---
Reason For Study: AAA Aorta Measurements Aorta Doppler Measurements Proximal aorta measures3.00cm x 2.93cm. in cross- Peak systolic flow velocities within the proximal sectional axis. aorta measure 90 cm/sec. Proximal aorta measures3.02cm. in longitudinal Peak systolic flow velocities within the mid aorta axis. measure 76 cm/sec. Mid aorta measures6.26cm x 6.48cm. in cross- Peak systolic flow velocities within the distal sectional axis. aorta measure 56 cm/sec. Mid aorta measures6.01cm. in longitudinal axis. Distal aorta measures4.65cm x 4.58cm. in cross- sectional axis. Distal aorta measures4.63cm. in longitudinal axis. Left Iliac Artery Left iliac artery measures 1.43cm x 1.28 cm. in the cross-sectional axis. Left iliac artery measures 1.28 cm. in the longitudinal axis. Peak systolic velocity in the left iliac artery measures 220 cm/sec. Right Iliac Artery Right iliac artery measures 1.44cm x 1.52 cm. in the cross-sectional axis. Right iliac artery measures 1.13 cm. in the longitudinal axis. Peak systolic velocity in the right iliac artery measures 132 cm/sec. Procedure Aorta IVC Iliac vasculature or bypass grafts [id number]. Prelim given to Nafisa. Exam performed in department. VL/Abd Aortic/IVC Duplex scan Interpretation Summary Aortic aneurysm 6.48cm. Ordering Physician: Patrick Oneal Referring Physician: Sandhya Priest Performed By: Elyssa Tate, ELENITA, RVT
--- NOTE | 2024-01-04 08:53 | ART_ITS ---
Reason For Study: PVD Procedure A bilateral lower extremity continuous wave Doppler with analog waveform analysis and ankle brachial indexes. Left Segmental Pressures Left brachial= 121mmHg. Left posterior tibial artery = 153mmHg. Left dorsalis pedis artery = 162mmHg. Left digit = 105 mmHg. Right Segmental Pressures Right brachial= 123mmHg. Right posterior tibial artery = 144mmHg. Right dorsalis pedis artery = 154mmHg. Right digit = 97 mmHg. Indices The right ankle brachial index by the posterior tibial artery is 1.17. The right ankle brachial index by the dorsalis pedis is 1.25. The right digital-brachial index is 0.79. The left ankle brachial index by the posterior tibial artery is 1.24. The left ankle brachial index by the dorsalis pedis is 1.32. The left digital-brachial index is 0.85. VL/Ankle Brachial Index Interpretation Summary Resting ankle-brachial indices appear bilaterally normal. Ordering Physician: Patrick Oneal Referring Physician: Sandhya Priest Performed By: Elyssa Tate RDCS/RVT
== END | disposition home or self-care (01) ==
PROVIDERS: PCP Internal Medicine; Referring Provider Surgery Vascular Surgery; Visit Provider Surgery Vascular Surgery
DX: I73.9 Peripheral vascular disease, unspecified (principal); I71.43 Infrarenal abdominal aortic aneurysm, without rupture
CPT/HCPCS: 93922; 93978

== ENCOUNTER → 2024-01-18 | Outpatient (CLI) | payer BC, SELFPAY ==
--- NOTE | 2024-01-18 08:49 | ECHOCS_ITS ---
Reason For Study: ARRYTHMIA Procedure This was a 2D Doppler, Color Flow transthoracic echocardiogram. The study was technically difficult. Contrast injection was performed. Exam performed in department. Left Ventricle Normal LV size. The left ventricular ejection fraction is 65 %. No regional wall motion abnormalities noted. Right Ventricle Normal RV size. Normal systolic function. Atria Normal left atrium. Normal right atrium. Mitral Valve Normal mitral valve. Tricuspid Valve Normal tricuspid valve. Aortic Valve Normal aortic valve. Pulmonic Valve Normal pulmonic valve. Great Vessels Normal aortic root. The pulmonary artery is normal size. Inferior vena cava collapse with respiration. Pericardium/Pleural No pericardial effusion. Medication 22 gauge I.V. with prn adaptor inserted into right arm. Diluted definity 1ml given slow IV push to enhance endocardial definition. MMode/2D Measurements & Calculations Ao root diam: 3.4 cm LAV(MOD-bp): 55.1 ml LVAd ap4: 46.9 cm2 LAV(MOD-bp) Indexed: 23.3 ml/m2 LVLd ap4: 10.5 cm LAV(MOD-sp2): 38.5 ml EDV(MOD-sp4): 169.8 ml LAV(MOD-sp4): 69.5 ml EDV(sp4-el): 177.5 ml LVAs ap4: 25.3 cm2 LVLs ap4: 8.5 cm ESV(MOD-sp4): 61.4 ml ESV(sp4-el): 64.4 ml EF(MOD-sp4): 63.9 % EF(sp4-el): 63.8 % SV(MOD-sp4): 108.5 ml SV(sp4-el): 113.2 ml LA A4 area: 22.9 cm2 LA dimension(2D): 4.3 cm TAPSE: 2.3 cm RA A4 area: 20.6 cm2 Time Measurements MV dec time: 0.20 sec Doppler Measurements & Calculations MV E max hardik: 72.0 cm/sec Lat Peak E' Hardik: 7.8 cm/sec Med Peak E' Hardik: 6.0 cm/sec MV A max hardik: 71.1 cm/sec E/E' lat: 9.3 E/E' med: 12.1 MV E/A: 1.0 MV V2 max: 93.7 cm/sec MV dec slope: 368.8 cm/sec2 Ao V2 max: 130.6 cm/sec MV max P.5 mmHg Ao max P.0 mmHg MV V2 mean: 58.4 cm/sec Ao V2 mean: 93.8 cm/sec MV mean P.6 mmHg Ao mean P.0 mmHg MV V2 VTI: 33.8 cm Ao V2 VTI: 29.1 cm AV (velocity ratio): 0.96 LV V1 max: 119.8 cm/sec PA V2 max: 90.2 cm/sec LV V1 max P.7 mmHg PA V2 mean: 54.7 cm/sec LV V1 mean P.5 mmHg LV V1 mean: 89.6 cm/sec LV V1 VTI: 28.0 cm ECHO/Echo Complete W/ Contrast Interpretation Summary Normal LV size. The left ventricular ejection fraction is 65 %. No regional wall motion abnormalities noted. Structurally normal valves. Contrast injection was performed. Ordering Physician: Lee Elise Referring Physician: Lee Elise Performed By: Jaky Glover RCS
== END | disposition home or self-care (01) ==
LOC: CVS 08:45
PROVIDERS: PCP Internal Medicine; Referring Provider Internal Medicine Cardiovascular Disease; Visit Provider Internal Medicine Cardiovascular Disease
DX: I48.0 Paroxysmal atrial fibrillation (principal); Z86.79 Personal history of other diseases of the circulatory system
CPT/HCPCS: 93306; Q9957; A4216; C8929

== ENCOUNTER 2024-02-23 09:43 | Emergency (ER) | payer BC, SELFPAY ==
[2024-02-23] VITALS (21 sets, daily range): BP systolic 149–202; BP diastolic 78–143; PULSE 60–78; RESP 10–24; TEMP 36.5–36.6; O2SAT 93–98; BMI 40.4
--- NOTE | 2024-02-23 10:02 | EKG12_ITS ---
Test Reason : FLANK PAIN Blood Pressure : / mmHG Vent. Rate : 060 BPM Atrial Rate : 060 BPM P-R Int : 184 ms QRS Dur : 086 ms QT Int : 418 ms P-R-T Axes : 093 058 050 degrees QTc Int : 418 ms Normal sinus rhythm Normal ECG Confirmed by Ranjith Beasley ([id number]), videotape editor KODY CHARLES ([id number]) on 02/25/2024 9:33:34 AM Referred By: Confirmed By:Ranjith Beasley
--- NOTE | 2024-02-23 10:12 | CT_ITS ---
INDICATION: Recent repair of abdominal aortic aneurysm EXAMINATION: CTA CHEST, ABDOMEN AND PELVIS WITH CONTRAST - TECHNIQUE: A CTA of the chest, abdomen, and pelvis is obtained with sagittal and coronal reconstructed MIP views. Three-dimensional surface rendered sequence of the thoracic and abdominal aorta was obtained. A radiation dose optimization technique was used for this scan. 100 mL of Isovue-370. Oral contrast: None. COMPARISON: None. FINDINGS: CT CHEST: THORACIC AORTA: No atheromatous disease, no aneurysmal changes or dissection. ABDOMINAL AORTA: There is a infrarenal abdominal aortic aneurysm which has recently undergone stent graft placement. There is extensive mural thrombus in the aneurysm with peripheral calcifications in the burt and evidence of air within the lumen of the hughes abdominal aortic aneurysm likely from stent placement. There is no evidence of endo or exo leak. Minimal contrast noted within the lumen of the stent. No evidence of retroperitoneal hemorrhage. LUNGS: The lungs are well-expanded without acute or chronic changes. No effusions or pneumothorax. MEDIASTINUM: The thyroid gland is normal. No mediastinal or hilar adenopathy. HEART: Heart is normal size. No pericardial effusion. CAD noted. CT ABDOMEN AND PELVIS: LIVER: The liver enhances homogeneously. No masses identified. GALLBLADDER: The CBD is normal. Normal gallbladder. SPLEEN: Normal. PANCREAS: No masses or inflammation. ADRENAL GLANDS: Normal. KIDNEYS AND URETERS: The left kidney enhances avidly with contrast noted within the left renal artery. The right kidney however shows only a bit of enhancement in the superior pole. The vast majority of the right kidney does not enhance normally and there is no contrast noted within the right renal artery. STOMACH: Normal. SMALL BOWEL: No abnormal distention of the small bowel. MESENTERY: No mesenteric inflammation. No ascites. COLON: Retained stool in the colon with scattered diverticula, no CT evidence of acute diverticulitis. No abnormal submucosal thickening or inflammatory stranding of the pericolonic fat. APPENDIX: The appendix is not visualized IVC: Normal. RETROPERITONEUM: No retroperitoneal lymphadenopathy. PELVIC STRUCTURES: Normal bladder. Prostate is enlarged and contains multiple calcifications suggesting chronic prostatitis. SOFT TISSUES ABDOMEN: The anterior abdominal wall is normal. SOFT TISSUE CHEST: The extrathoracic soft tissues are normal. BONES: No fractures or significant degenerative disease. There are degenerative bony changes CT/CTA Chst, Abd, Pel W and/or WO IMPRESSION: Majority of the right kidney does not enhance normally and there is minimal contrast noted within the right renal artery. What is present as seen on coronal recon image 189 series 2. This is in the branch leading to the upper pole. The inferior 3 quarters of the right renal artery does not enhance and there is almost no contrast identified within the right renal artery. This suggests significant stenosis of the right renal artery either due to stent graft or atherosclerotic disease. Findings are concerning for infarct in right kidney. The findings were discussed with emergency room physician prior to dictation Patent aortic stent graft noted. No CTA evidence of endoleak or exoleak. There is air within the lumen of the hughes abdominal aortic aneurysm likely due to stent graft placement. No retroperitoneal fluid or air. The left kidney enhances avidly and contrast is noted within the left renal artery. Scattered colonic diverticula, no CT evidence of acute diverticulitis N.B. : The above Results were Read Back by Anthony Mackenzie MD to Arturo Lovett DO, and understanding confirmed on 02/23/2024 11:12:30 (ET). Electronically Signed: Anthony Mackenzie MD at 11:17 EDT ,
--- NOTE | 2024-02-23 10:14 | EX.ED.DYSGE1 ---
HPI History of Present Illness Chief Complaint: Flank Pain Narrative Narrative: Patient is a 63-year-old male past medical history of AAA repair on Sunday at [facility] in [place], atrial fibrillation on , hypertension, tobacco use, ORTIZ, hypertension, hyperlipidemia who presented to the emergency department with a chief complaint of back pain. He states on Sunday he had a AAA repair was discharged on Sunday. He states on he started to develop some back pain which progressively worsened day by day into today prompting him here further evaluation management. He states that it feels like a knife is being stabbed into his back. Patient denies any black stools denies any blood in the stool. He states that he had blood in his urine after surgery because of Segal catheter placement however he states that he has not had any blood in his urine since then. Patient did rate his pain a 10 out of 10. 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 NSTEMI (non-ST elevated myocardial infarction) History of supraventricular tachycardia Diabetes mellitus, type II Obesity (BMI 30-39.9) HLD (hyperlipidemia) HTN (hypertension) Chest pain Home Medications ?Medication ?Instructions ?Recorded ?Last Taken ?Type acetaminophen 325 mg tablet 650 mg (2 x 325 mg) PO Q6H PRN PRN 09/25/18 Unknown Rx Mild Pain (0-2/10) aspirin 81 mg tablet,delayed 81 mg PO DAILY@0800 see pcp 09/25/18 Unknown Rx release coenzyme Q10 200 mg capsule (Co 400 mg PO DAILY see pcp 10/11/18 Unknown History Q-10) metformin 500 mg tablet,extended 1,000 mg PO DAILY see pcp 10/11/18 Unknown History release 24 hr atorvastatin 80 mg tablet 80 mg PO DAILY see pcp 05/16/19 Unknown History ascorbic acid (vitamin C) 500 mg 500 mg PO DAILY see pcp 11/13/19 Unknown History capsule,extended release pyridoxine (vitamin B6) 50 mg 50 mg PO DAILY see pcp 11/13/19 Unknown History capsule (Vitamin B-6) losartan 25 mg tablet 25 mg PO BID see pc #180 tabs 11/22/21 Unknown Rx albuterol sulfate 90 mcg/actuation 2 puff inhalation Q4H PRN PRN 02/23/22 Unknown Rx aerosol inhaler (Ventolin HFA) Wheezing #8.5 grams pantoprazole 40 mg tablet,delayed 40 mg PO DAILY see pcp 03/31/22 Unknown History release alfuzosin 10 mg tablet,extended 10 mg PO DAILY see pcp 02/13/23 02/13/23 History release 24 hr bipuxin-qpnkumrlq-bptn 333 mg-133 1 tab PO DAILY see pcp 02/13/23 Unknown History mg-5 mg tablet metoprolol tartrate 50 mg tablet 50 mg PO BID #60 tabs 02/15/23 Unknown Rx apixaban 5 mg tablet (Eliquis) 5 mg PO BID see pcp #180 tabs 10/15/23 Unknown Rx blood sugar diagnostic (Accu-Chek 11/28/23 Unknown History Guide test strips) lancets (Accu-Chek Softclix 11/28/23 Unknown History Lancets) cholecalciferol (vitamin D3) 125 125 mcg PO QDAY 12/07/23 Unknown History mcg (5,000 unit) capsule hydrocodone-acetaminophen 5-325mg 1 tab PO Q8H PRN 02/23/24 Unknown History 5mg-325mg semaglutide 0.25 mg or 0.5 mg (2 0.25 mg subcut QWEEK 02/23/24 Unknown History mg/3 mL) subcutaneous pen injector (Ozempic) Allergy/AdvReac Type Severity Reaction Status Date / Time rosuvastatin (From Crestor) AdvReac Severe Severe Verified 02/23/24 09:44 myalgias (legs) codeine AdvReac Other Verified 02/23/24 09:44 Family History Mother Heart disease Pacemaker Father Stomach cancer Liver cancer Surgical History History of thumb surgery History of appendectomy Stented coronary artery (09/24/18) Social History Smoking Status: Former smoker quit date: 09/24/18 pack-years: 40 alcohol intake: current alcohol intake frequency: 0-2 drinks per day Alcohol type: beer caffeine: No ROS ROS ED ROS Narrative Constitutional: Denies any fevers, chills, headaches, lightness, dizziness Eyes: Denies any changes vision double vision blurry vision Cardiovascular: Denies any chest pain or palpitations Respiratory: Denies coughing wheezing shortness of Abdomen: Denies any abdominal pain nausea vomit diarrhea : Denies any painful urination, hematuria and polyuria denies any history of kidney stones Neurological: Denies numbness, weakness, tingling Musculoskeletal: Complains of back pain as noted above Skin: Denies rashes or lesions EXAM Physical Exam Narrative Exam Narrative: General: Patient lying in bed did appear to be uncomfortable secondary to his back pain Head: Atraumatic, normocephalic Eyes: PERRL bilateral, EOMI bilateral, no conjunctival injection noted Neck: Soft, supple and trach midline Cardiovascular: Regular in rhythm no murmurs gallops rubs noted Respiratory: Clear to auscultation bilaterally Abdomen: Soft, nondistended, nontender to palpation Extremities: +5/5 strength noted in the bilateral upper and lower extremities, no pedal edema on exam, DP pulses +2/4 in the bilateral lower extremities Neurological: Patient following commands knew that he was at [facility] year is 2023 Skin: Warm, dry, intact Const Vital Signs: 02/23/24 09:44 02/23/24 10:43 02/23/24 11:00 Temperature 97.7 F L Temperature Source Oral Pulse Rate 60 69 72 Respiratory Rate 24 H 10 L 14 Blood Pressure 176/81 H 166/93 H 153/86 H Blood Pressure Mean 112 117 106 Pulse Ox 96 98 93 Oxygen Delivery Method Room Air Room Air 02/23/24 12:00 02/23/24 13:00 02/23/24 13:46 Temperature Temperature Source Pulse Rate 62 65 64 Respiratory Rate 13 12 15 Blood Pressure 157/130 H 170/83 H 182/88 H Blood Pressure Mean 139 112 116 Pulse Ox 93 95 94 Oxygen Delivery Method 02/23/24 14:00 Temperature Temperature Source Pulse Rate 68 Respiratory Rate 17 Blood Pressure Blood Pressure Mean Pulse Ox Oxygen Delivery Method MDM MDM MDM Narrative Medical decision making narrative: Patient is a 63-year-old male who presented to the emergency department with a chief complaint of AAA repair on Sunday of this past week and back pain today. Patient will have a workup performed here on the differential diagnose includes but not limited to aortic dissection, urolithiasis, UTI, pyelonephritis, ACS. Once workup is obtained reviewed he will be reevaluated. Patient will be given fentanyl and Zofran for pain control. Currently is hypertensive and given the fluid shortage we will hold off on fluids right now. Patient CBC reviewed and showed no evidence leukocytosis white blood count normal at 9, hemoglobin stable 12.6, platelet count was noted to be normal at 207. Patient's INR was 1.1, 13.8 for PT. Patient sodium was 133, potassium was normal at 3.8, creatinine was elevated to 1.44 his baseline is around 1 here based on previous blood draws. Patient's AST and ALT were 21 and 28 respectively, troponin normal at 7 with an EKG reviewed which independently interpreted by myself showed sinus rhythm with a rate of 60 bpm. Patient lipase normal at 30. Patient's urinalysis showed 100 leukocyte esterase negative nitrites no white blood cells and no bacteria seen. No concern for infection at this point time. Patient CT angiography of the chest abdomen pelvis was reviewed and did show majority of the right kidney not enhancing normally there is minimal contrast noted within the right renal artery. There is a branch leading to the upper pole of the inferior 3 quadrants of the right renal artery does not enhance and there is almost no contrast identified in the right renal artery. This suggest significant stenosis of the right renal artery either due to stent graft or atherosclerotic disease. Concerning for infarct of the right kidney. Patent aortic stent graft noted. No concern for endoleak or exit leak. I did discuss case with Dr. Oneal who states that the patient can follow-up in the office in the outpatient setting. He was recommending pain control. On reevaluation the patient he is still having significant pain and is requiring multiple doses of pain medications and having intractable back pain do believe he will warrant admission therefore will look to transfer back to [facility] in [place]. I called and discussed case with hospitalist Dr. haro who is recommending further discussion again with Dr. Oneal prior to excepting for transfer. Did discuss with Dr. Oneal again and states that he will see the patient in consult therefore the patient will be transferred to [facility] for his intractable back pain. Patient was notified is agreeable this plan all question concerns answered. Lab Data Labs: Laboratory Results - last 24 hr 02/23/24 02/23/24 02/23/24 09:56 10:12 10:44 WBC 9.0 RBC 4.07 L Hgb 12.6 L Hct 39.2 L MCV 96.3 H MCH 31.0 MCHC 32.1 RDW Std Deviation 47.8 H RDW Coeff of Frank 13.4 Plt Count 207 MPV 9.4 Immature Gran % (Auto) 0.700 Neut % (Auto) 71.1 H Lymph % (Auto) 17.4 L [place] % (Auto) 9.0 Eos % (Auto) 1.1 Baso % (Auto) 0.7 Absolute Neuts (auto) 6.4 Absolute Lymphs (auto) 1.57 Nucleated RBC % 0 PT 13.8 INR 1.1 APTT 33.8 Sodium 133 L Potassium 3.8 Chloride 101 Carbon Dioxide 26.0 Anion Gap 7 BUN 17 Creatinine 1.44 H Estim Creat Clear Calc 68.42 Est GFR (MDRD) Af Amer 64 Est GFR (MDRD) Non-Af 53 L BUN/Creatinine Ratio 11.8 Glucose 144 H Calcium 9.6 Total Bilirubin 0.90 AST 21 ALT 28 Alkaline Phosphatase 44 L Troponin I High Sens 7 Total Protein 7.4 Albumin 3.3 Globulin 4.1 Albumin/Globulin Ratio 0.8 L Lipase 30 Urine Color Yellow Urine Clarity Clear Urine pH 7.0 Ur Specific [place] 1.010 Urine Protein 30 H Urine Glucose (UA) Normal Urine Ketones Negative Urine Occult Blood 50 H Urine Nitrite Negative Urine Bilirubin Negative Urine Urobilinogen Normal Ur Leukocyte Esterase 100 H Urine RBC 0-5 SEEN Urine WBC 0 SEEN Ur Squamous Epith Cells 0 SEEN Urine Bacteria 0 SEEN Urine Mucus 0 SEEN Blood Type O POSITIVE Antibody Screen NEGATIVE Radiography Diagnostic Testing: Clinical Impression(s) from Imaging Studies Chest/Abdomen/Pelvis CTA 02/23/24 10:12 IMPRESSION: Majority of the right kidney does not enhance normally and there is minimal contrast noted within the right renal artery. What is present as seen on coronal recon image 189 series 2. This is in the branch leading to the upper pole. The inferior 3 quarters of the right renal artery does not enhance and there is almost no contrast identified within the right renal artery. This suggests significant stenosis of the right renal artery either due to stent graft or atherosclerotic disease. Findings are concerning for infarct in right kidney. The findings were discussed with emergency room physician prior to dictation Patent aortic stent graft noted. No CTA evidence of endoleak or exoleak. There is air within the lumen of the tejon abdominal aortic aneurysm likely due to stent graft placement. No retroperitoneal fluid or air. The left kidney enhances avidly and contrast is noted within the left renal artery. Scattered colonic diverticula, no CT evidence of acute diverticulitis N.B. : The above Results were Read Back by Anthony Mackenzie MD to Arturo Lovett DO, and understanding confirmed on 02/23/2024 11:12:30 (ET). Electronically Signed: Anthony Mackenzie MD at 11:17 EDT , ADDENDUM: 02/23/24 1124 IMPRESSION: Majority of the right kidney does not enhance normally and there is minimal contrast noted within the right renal artery. What is present as seen on coronal recon image 189 series 2. This is in the branch leading to the upper pole. The inferior 3 quarters of the right renal artery does not enhance and there is almost no contrast identified within the right renal artery. This suggests significant stenosis of the right renal artery either due to stent graft or atherosclerotic disease. Findings are concerning for infarct in right kidney. The findings were discussed with emergency room physician prior to dictation Patent aortic stent graft noted. No CTA evidence of endoleak or exoleak. There is air within the lumen of the tejon abdominal aortic aneurysm likely due to stent graft placement. No retroperitoneal fluid or air. The left kidney enhances avidly and contrast is noted within the left renal artery. Scattered colonic diverticula, no CT evidence of acute diverticulitis N.B. : The above Results were Read Back by Anthony Mackenzie MD to Arturo Lovett DO, and understanding confirmed on 02/23/2024 11:12:30 (ET). Electronically Signed: Anthony Mackenzie MD at 11:17 EDT , Discharge Plan Triage Chief Complaint: Flank Pain ED Provider: Arturo Lovett Dx/Rx/DC Orders Clinical Impression: Intractable back pain, Abnormal CT of the abdomen Prescriptions: No Action coenzyme Q10 [Co Q-10] 200 mg capsule 400 mg PO DAILY atorvastatin 80 mg tablet 80 mg PO DAILY Vitamin B-6 50 mg capsule 50 mg PO DAILY ascorbic acid (vitamin C) 500 mg capsule, extended release 500 mg PO DAILY pantoprazole 40 mg tablet,delayed release (DR/EC) 40 mg PO DAILY cholecalciferol (vitamin D3) 125 mcg (5,000 unit) capsule 125 mcg PO QDAY acetaminophen 325 MG tablet 650 mg PO Q6H PRN PRN (Reason: Mild Pain (0-2/10)) 0RF aspirin 81 MG tablet 81 mg PO DAILY@0800 0RF metformin 500 mg tablet extended release 24 hr 1,000 mg PO DAILY albuterol sulfate [Ventolin HFA] 90 mcg/actuation HFA aerosol inhaler 2 puff inhalation Q4H PRN PRN (Reason: Wheezing) Qty: 8.5 0RF alfuzosin 10 mg tablet extended release 24 hr 10 mg PO DAILY Patient Comments: TAKE 1 TABLET BY MOUTH EVERY NIGHT AT BEDTIME [id number] 333-133-5 mg tablet 1 tab PO DAILY metoprolol tartrate 50 mg Tablet 50 mg PO BID Qty: 60 2RF (DME) Accu-Chek Guide test strips Strip MISCELLANEOUS DAILY (DME) lancets [Accu-Chek Softclix Lancets] Misc MISCELLANEOUS DAILY hydrocodone-acetaminophen 5-325 mg tablet 1 tab PO Q8H PRN Ozempic 0.25 mg or 0.5 mg (2 mg/3 mL) pen injector 0.25 mg subcut QWEEK losartan 25 mg tablet 25 mg PO BID Qty: 180 3RF Eliquis 5 mg tablet 5 mg PO BID Qty: 180 3RF Primary Care Provider: Sandhya Priest Referrals: Sandhya Priest MD [Primary Care Provider] - Print Language: Danish
[2024-02-23 10:15] LABS: Absolute Lymphocyte Count 1.57 X10^3/uL (0.83-4.51); Absolute Neutrophil Count 6.4 X10^3/uL (2.0-7.7); Basophil# 0.06 X10^3/uL; Basophil% 0.7 % (0-1); Eosinophils% 1.1 % (0-5); Hematocrit 39.2 % (40-54); Hemoglobin 12.6 g/dL (13.0-16.5); Lymphocyte # 1.57 X10^3/ul (0.83-4.51); Lymphocyte % 17.4 % (19-41); Mean Corp Hgb Conc 32.1 g/dL (32-36); Mean Corpuscular Volume 96.3 fL (80-94); Mean Platelet Vol. 9.4 fl (6.2-12.0); Monocyte# 0.81 X10^3/uL; NRBC Flagged by Analyzer 0 % (0-5); Neutrophil # 6.42 X10^3/uL (2.7-7.7); Neutrophil % 71.1 % (47-70); Platelet Count 207 K/mm3 (150-450); RBC Distribution Width CV 13.4 % (11.6-14.6); RBC Distribution Width SD 47.8 fl (35.1-43.9); Red Blood Count 4.07 M/mm3 (4.6-6.2)
[2024-02-23] MEDS: fentaNYL 100 MCG/2 ML Ampul 50 MCG IV ×2 (10:18→11:48)
[2024-02-23] MEDS: Ondansetron 4 MG/2 ML Vial IV (10:19)
[2024-02-23 10:24] LABS: International Normalized Ratio 1.1; Prothrombin Time (Protime)PT. 13.8 SECONDS (11.7-14.9)
[2024-02-23 10:25] LABS: Partial Thromboplast Time 33.8 Seconds (24.1-36.2)
[2024-02-23 10:36] LABS: ALB/GLOB Ratio 0.8 RATIO (0.9-2.4); AST(SGOT) 21 U/L (15-37); Alanine Aminotransfer ALT/SGPT 28 U/L (16-61); Albumin, Serum 3.3 g/dL (3.2-5.0); Alkaline Phosphatase 44 U/L (45-117); Anion Gap 7 (5-15); BUN 17 mg/dL (7-18); BUN/Creat Ratio 11.8 RATIO (10-20); Calcium,Total 9.6 mg/dL (8.5-10.1); Chloride 101 mmol/L (98-107); Creatinine, Serum 1.44 mg/dL (0.70-1.30); EST Glomerular Filtration Rate 53 mL/min (>60); Est Glom Filt Rate - Afr Amer 64 mL/min (>60); Estimated Creatinine Clearance 68.42 ml/min; Globulin 4.1 g/dL (2.2-4.2); Glucose 144 mg/dL (74-106); Lipase 30 U/L (13-75); Potassium 3.8 mmol/L (3.5-5.1); Protein, Total 7.4 g/dL (6.4-8.2); Sodium Level 133 mmol/L (136-145); Troponin-I HS 7 pg/mL (3.0-78.0)
[2024-02-23 10:53] LABS: Bacteria 0 SEEN /hpf (None Seen); Mucous, Urine 0 SEEN /hpf (<or=2+); Squamous Epithelial Cells - UA 0 SEEN /hpf (0-5); White Blood Cells 0 SEEN /hpf (0-5)
[2024-02-23 10:57] LABS: Color, Urine Yellow (Yellow); Glucose, Dipstick Normal (Normal); Ketone-Dipstick Negative (Negative); Leukocyte Esterase-Dipstick 100 /ul (Negative); Nitrite-Dipstick Negative (Negative); Occult Blood-Urine 50 /ul (Negative); Protein-Dipstick 30 mg/dl (Negative); Urine Bilirubin Dipstick Negative (Negative); Urine Clarity Clear (Clear); Urine Urobilinogen Normal (Normal)
[2024-02-23 11:05] LABS: Red Blood Cells-Urine 0-5 SEEN /hpf (0-5)
--- NOTE | 2024-02-23 15:23 | ED.RN ---
Report called to 2M nurseTamy at this time. No further questions by the receiving nurse at this time
== END 2024-02-23 17:29 | disposition short-term general hospital (02) ==
LOC: ED 10:19
PROVIDERS: Emergency Provider Emergency Medicine; PCP Internal Medicine; Visit Provider Emergency Medicine
DX: M54.9 Dorsalgia, unspecified (principal); I48.91 Unspecified atrial fibrillation; E11.9 Type 2 diabetes mellitus without complications; Z79.01 Long term (current) use of anticoagulants; Z87.891 Personal history of nicotine dependence; I10 Essential (primary) hypertension; E78.5 Hyperlipidemia, unspecified; G47.33 Obstructive sleep apnea (adult) (pediatric); I25.10 Atherosclerotic heart disease of native coronary artery without angina pectoris; Z95.828 Presence of other vascular implants and grafts; R93.5 Abnormal findings on diagnostic imaging of other abdominal regions, including retroperitoneum; I25.2 Old myocardial infarction; Z79.82 Long term (current) use of aspirin
CPT/HCPCS: 71275; 74174; 80053; 81001; 83690; 84484; 85025; 85610; 85730; 86850; 86900; 86901; 93005; 96374; 96375; 96376; 99284; Q9967; J2405

== ENCOUNTER 2024-03-12 15:39 | Emergency (ER) | payer BC, SELFPAY ==
[2024-03-12 15:39] VITALS: BP 153/113; PULSE 170; RESP 22; TEMP 36.5; O2SAT 98; BMI 43.1
[2024-03-12] MEDS: fentaNYL 100 MCG/2 ML Ampul 50 MCG IV (15:53)
[2024-03-12] MEDS: Midazolam 2 MG/2 ML Syringe IV (15:53)
--- NOTE | 2024-03-12 15:54 | EKG12_ITS ---
Test Reason : REPEAT Blood Pressure : */* mmHG Vent. Rate : 83 BPM Atrial Rate : 83 BPM P-R Int : 210 ms QRS Dur : 82 ms QT Int : 376 ms P-R-T Axes : 10 44 51 degrees QTcB Int : 441 ms Sinus rhythm with 1st degree A-V block Otherwise normal ECG Confirmed by VILMA LONDON, PIERRE ([id number]), web editor STEVEN WORTHINGTON ([id number]) on 03/14/2024 8:15:18 AM Referred By: NEAL Confirmed By: PIERRE ESPARZA MD
--- NOTE | 2024-03-12 15:55 | EDS_ITS ---
HPI History of Present Illness Chief Complaint: Chest Pain Informant: patient Narrative Narrative: Patient is a 63-year-old male with extensive past medical history including AAA repair on February 18, blood clot to the kidney, atrial fibrillation chronic anticoagulation on Eliquis. He also has history of coronary artery disease and has a stent. He is due to have an ablation coming up. He states he felt fine when he went to work this morning but then at approximately 1405 he developed thumping chest pain with palpitations and feeling like his heart was racing. He became diaphoretic, short of breath and very weak. EMS was called and they had to remove him from the truck he was in. Patient denies any abdominal pain. Denies any ripping or tearing sensation. PFSH PFSH Allergy/AdvReac Type Severity Reaction Status Date / Time codeine AdvReac Itching Verified 03/12/24 15:40 Social History Smoking Status: Never smoker ROS ROS ED Constitutional Constitutional ED: Reports sweats; Denies chills or fever(s) Cardiovascular Cardiovascular: Reports as per HPI, chest pain, palpitations and racing heartbeat Respiratory/Chest Respiratory/Chest: Reports dyspnea Gastrointestinal Gastrointestinal: Denies abdominal pain Integumentary Denies rash Neurologic Neurologic: Denies paresthesias or weakness Hematologic/Lymphatic Hematologic/Lymphatic: Reports easy bleeding, easy bruising and other Details: On Eliquis EXAM Physical Exam Const Vital Signs: 03/12/24 15:39 03/12/24 15:54 03/12/24 16:39 Temperature 97.7 F L Temperature Source Temporal Pulse Rate 170 H 75 Respiratory Rate 22 H 16 Blood Pressure 153/113 H 137/85 H Blood Pressure Mean 126 102 Pulse Ox 98 98 Oxygen Delivery Method Room Air Room Air Room Air 03/12/24 17:00 03/12/24 18:00 03/12/24 19:00 Temperature Temperature Source Pulse Rate 75 70 66 Respiratory Rate 16 20 H 18 Blood Pressure 141/85 H 133/93 H Blood Pressure Mean 103 106 Pulse Ox 98 98 98 Oxygen Delivery Method Room Air Room Air Positive well nourished and well developed Constitutional Narrative: Diaphoretic, ill-appearing, pale General Appearance ED: well developed HEENT Reports moist mucous membranes normocephalic and atraumatic Eyes PERRL and EOMs intact bilaterally Neck supple and no JVD Chest Wall inspection of chest normal and palpation of chest normal Resp normal respiratory effort and clear to auscultation bilaterally Cardio Rate: tachycardic Rhythm: Negative for abnormal rhythm Peripheral Pulses: pulses 2+ throughout GI normal to inspection, nondistended, normoactive bowel sounds, soft to palpation and non-tender GI Narrative: Protuberant abdomen, no pulsatile mass appreciated Extremity normal to inspection General Extremety ED: Negative for edema General Extremity: Negative for edema Neuro oriented x3 Sensorium / Orientation: awake and alert Motor Exam: general weakness Psych mental status grossly normal Skin Skin Narrative: Diaphoretic MDM MDM MDM Narrative Medical decision making narrative: Patient is evaluated for sudden onset of racing heartbeat, diaphoresis and generalized weakness with associated chest pain. Patient was hypotensive and tachycardic per EMS. Started on IV fluids. Initial blood pressure 153/113 however on repeat it is 105 systolic. I suspect the repeat is more accurate. Patient's heart rate is around 1 73. Patient seems to have a difficult time answering questions and is in acute distress. Decision was made to emergently cardiovert as I feel that patient is becoming unstable. See procedure note. Patient is now in normal sinus rhythm. Cardiac workup to be performed. Patient bere asymptomatic in the emergency room after cardioversion. Remains hemodynamic stable. Is in sinus rhythm. High-sensitivity troponins is 1.61 which is expected given he was cardioverted in A-fib RVR. Creatinine is minimally above his baseline of 1.60. Prior EKG found this patient was initially registered under the name, there are no acute changes from second EKG postcardioversion compared to his prior. Patient will follow-up outpatient with cardiology and electrophysiology. Given return precautions. Discharged home in stable improved condition. Did discuss with Dr. Elise, cardiology on-call. At this time he does not recommend any further medication adjustments. Lab Data Attestation: I reviewed the patient's lab results. Labs: Laboratory Results - last 24 hr 03/12/24 03/12/24 16:06 18:30 WBC 7.4 RBC 4.02 L Hgb 12.3 L Hct 38.2 L MCV 95.0 H MCH 30.6 MCHC 32.2 RDW Std Deviation 47.7 H RDW Coeff of Frank 13.7 Plt Count 221 MPV 9.1 Immature Gran % (Auto) 1.100 H Neut % (Auto) 63.8 Lymph % (Auto) 24.2 [place] % (Auto) 6.8 Eos % (Auto) 3.1 Baso % (Auto) 1.0 Absolute Neuts (auto) 4.7 Absolute Lymphs (auto) 1.78 Nucleated RBC % 0 Sodium 140 Potassium 3.7 Chloride 106 Carbon Dioxide 27.0 Anion Gap 8 BUN 26 H Creatinine 1.60 H Estim Creat Clear Calc 63.75 Est GFR (MDRD) Af Amer 56 L Est GFR (MDRD) Non-Af 47 L BUN/Creatinine Ratio 16.2 Glucose 162 H Calcium 9.0 Magnesium 2.0 Troponin I High Sens 20 61 Radiography Chest X-Ray - ED: 1 View, Read by ED Physician, Read by Radiologist and No Acute Disease Diagnostic Testing: Clinical Impression(s) from Imaging Studies Chest X-Ray 03/12/24 15:58 IMPRESSION: Limited by overlying artifact. No definite acute chest disease. Electronically Signed: Sadi Cornejo MD at 16:27 EDT , Rhythm Strip Rhythm Strip: A-fib Rate: 176 Ectopy: None EKG Initial EKG: Attestation: I personally reviewed and interpreted this EKG as follows: Interpretation: Atrial Fibrillation Comments: Atrial fibrillation with rapid ventricular response at a rate of [address] depressions in V5 and V6, suspect rate/strain related Follow-up EKG: Attestation: I personally reviewed and interpreted this EKG as follows: Interpretation: Sinus Rhythm Comments: Status post cardioversion Normal sinus rhythm at a rate of 83 bpm with first-degree AV block IN interval 210 Normal axis Normal intervals Normal ST segments Prior: Changed Management 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 Patient premedicated with 2 mg Versed and 50 mcg of fentanyl. Synchronized cardioversion performed and patient shocked at 200 J with conversion to normal sinus rhythm. Patient tolerated procedure well with no immediate complications Discharge Plan Triage Chief Complaint: Chest Pain ED Provider: Kim Boyce Dx/Rx/DC Orders Clinical Impression: Atrial fibrillation with rapid ventricular response, Encounter for cardioversion procedure Instructions: Cardioversion Dc, ED AFIB Primary Care Provider: Sandhya Priest Referrals: Lee Elise MD [Med Staff - Active Staff] - 1-2 Weeks NOT,DEFINED [Non-Staff] - Activity Restrictions/Additional Instructions: Follow-up with electrophysiology as well as cardiology. Return to care progression or return of symptoms. Print Language: Icelandic Disposition Disposition: Home, Self Care
--- NOTE | 2024-03-12 15:58 | RAD_ITS ---
STUDY: X-RAY CHEST REASON FOR EXAM: Male, 63 years old. chest pain TECHNIQUE: Single AP portable view of the chest. COMPARISON: None. FINDINGS: Limited by marked overlying artifact from external pacer leads. Normal lung volumes. No infiltrates or effusions. Mild cardiomegaly. Prominent bilateral rachel. Bones and soft tissues unremarkable. RAD/Chest 1 View (Portable) IMPRESSION: Limited by overlying artifact. No definite acute chest disease. Electronically Signed: Sadi Cornejo MD at 16:27 EDT ,
--- NOTE | 2024-03-12 16:00 | EKG12_ITS ---
Test Reason : SVT Blood Pressure : */* mmHG Vent. Rate : 176 BPM Atrial Rate : * BPM P-R Int : * ms QRS Dur : 76 ms QT Int : 266 ms P-R-T Axes : * 48 245 degrees QTcB Int : 455 ms Critical Test Result: High HR Supraventricular tachycardia ST depression, consider subendocardial injury Nonspecific T wave abnormality Abnormal ECG No previous ECGs available Confirmed by Ranjith Beasley ([id number]), writer editor KODY CHARLES ([id number]) on 03/18/2024 9:31:28 AM Referred By: NEAL Confirmed By: Ranjith Beasley
[2024-03-12] MEDS: Aspirin 81 MG TAB.CHEW 324 MG PO (16:03)
[2024-03-12 16:18] LABS: Absolute Lymphocyte Count 1.78 X10^3/uL (0.83-4.51); Absolute Neutrophil Count 4.7 X10^3/uL (2.0-7.7); Basophil# 0.07 X10^3/uL; Eosinophil# 0.23 X10^3/uL; Eosinophils% 3.1 % (0-5); Hematocrit 38.2 % (40-54); Hemoglobin 12.3 g/dL (13.0-16.5); Lymphocyte # 1.78 X10^3/ul (0.83-4.51); Lymphocyte % 24.2 % (19-41); Mean Corp Hgb Conc 32.2 g/dL (32-36); Mean Corpuscular Hgb 30.6 pg (27.0-32.0); Mean Platelet Vol. 9.1 fl (6.2-12.0); Monocyte% 6.8 % (0-10); NRBC Flagged by Analyzer 0 % (0-5); Neutrophil % 63.8 % (47-70); Platelet Count 221 K/mm3 (150-450); RBC Distribution Width CV 13.7 % (11.6-14.6); RBC Distribution Width SD 47.7 fl (35.1-43.9); Red Blood Count 4.02 M/mm3 (4.6-6.2); White Blood Count 7.4 K/mm3 (4.4-11.0)
[2024-03-12 16:33] LABS: Anion Gap 8 (5-15); BUN 26 mg/dL (7-18); BUN/Creat Ratio 16.2 RATIO (10-20); Chloride 106 mmol/L (98-107); EST Glomerular Filtration Rate 47 mL/min (>60); Est Glom Filt Rate - Afr Amer 56 mL/min (>60); Estimated Creatinine Clearance 63.75 ml/min; Glucose 162 mg/dL (74-106); Potassium 3.7 mmol/L (3.5-5.1); Sodium Level 140 mmol/L (136-145); Troponin-I HS (w/2H Reflex) 20 pg/mL (3.0-78.0)
[2024-03-12 16:39] VITALS: BP 137/85; PULSE 75; RESP 16; O2SAT 98
[2024-03-12 17:00] VITALS: BP 141/85; PULSE 75; RESP 16; O2SAT 98
[2024-03-12 18:00] VITALS: PULSE 70; RESP 20; O2SAT 98
[2024-03-12 18:11] LABS: Reflex Troponin-HS? (from REC) Y
[2024-03-12 19:00] VITALS: BP 133/93; PULSE 66; RESP 18; O2SAT 98
[2024-03-12 19:06] LABS: Troponin-I HS 61 pg/mL (3.0-78.0)
[2024-03-12 19:49] VITALS: BP 133/83; PULSE 65; RESP 18; TEMP 36.6; O2SAT 96
== END 2024-03-12 19:53 | disposition home or self-care (01) ==
PROVIDERS: Emergency Provider Emergency Medicine; PCP Internal Medicine; Visit Provider Emergency Medicine
DX: I48.91 Unspecified atrial fibrillation (principal); I25.10 Atherosclerotic heart disease of native coronary artery without angina pectoris; Z79.01 Long term (current) use of anticoagulants; Z95.5 Presence of coronary angioplasty implant and graft
CPT/HCPCS: 71045; 80048; 83735; 84484; 85025; 92960; 93005; 99285; J7040; A4216

== ENCOUNTER → 2024-03-27 | Outpatient (CLI) | payer BC, SELFPAY ==
[2024-03-27 12:01] LABS: Absolute Lymphocyte Count 1.85 X10^3/uL (0.83-4.51); Absolute Neutrophil Count 3.3 X10^3/uL (2.0-7.7); Basophil# 0.07 X10^3/uL; Basophil% 1.1 % (0-1); Eosinophil# 0.24 X10^3/uL; Eosinophils% 3.9 % (0-5); Hematocrit 41.2 % (40-54); Hemoglobin 13.4 g/dL (13.0-16.5); Lymphocyte # 1.85 X10^3/ul (0.83-4.51); Lymphocyte % 30.2 % (19-41); Mean Corp Hgb Conc 32.5 g/dL (32-36); Mean Corpuscular Hgb 30.6 pg (27.0-32.0); Mean Corpuscular Volume 94.1 fL (80-94); Mean Platelet Vol. 9.3 fl (6.2-12.0); Monocyte# 0.64 X10^3/uL; Monocyte% 10.4 % (0-10); NRBC Flagged by Analyzer 0 % (0-5); Neutrophil # 3.26 X10^3/uL (2.7-7.7); Neutrophil % 53.3 % (47-70); Platelet Count 200 K/mm3 (150-450); RBC Distribution Width CV 13.9 % (11.6-14.6); RBC Distribution Width SD 47.7 fl (35.1-43.9); Red Blood Count 4.38 M/mm3 (4.6-6.2); White Blood Count 6.1 K/mm3 (4.4-11.0)
[2024-03-27 13:16] LABS: BNP,B-Type NATRIURETIC PEPTIDE 104.5 pg/mL (0-100)
[2024-03-27 13:22] LABS: Anion Gap 4 (5-15); BUN 29 mg/dL (7-18); BUN/Creat Ratio 21.5 RATIO (10-20); Calcium,Total 9.3 mg/dL (8.5-10.1); Chloride 104 mmol/L (98-107); Creatinine, Serum 1.35 mg/dL (0.70-1.30); EST Glomerular Filtration Rate 57 mL/min (>60); Est Glom Filt Rate - Afr Amer 69 mL/min (>60); Glucose 100 mg/dL (74-106); Magnesium 2.9 mg/dL (1.6-2.6); Potassium 4.5 mmol/L (3.5-5.1); Sodium Level 139 mmol/L (136-145)
== END | disposition home or self-care (01) ==
LOC: LAB 11:11
PROVIDERS: PCP Internal Medicine; Referring Provider Nurse Practitioner Gerontology; Visit Provider Nurse Practitioner Gerontology
DX: I48.0 Paroxysmal atrial fibrillation (principal); R06.09 Other forms of dyspnea
CPT/HCPCS: 36415; 80048; 83735; 83880; 84443; 85025

== ENCOUNTER 2024-04-14 10:13 | Inpatient (IN) | payer BC, SELFPAY ==
[2024-04-14] VITALS (20 sets, daily range): BP systolic 108–193; BP diastolic 77–107; PULSE 61–89; RESP 15–30; TEMP 36.1–37.2; O2SAT 89–96; BMI 34.7
--- NOTE | 2024-04-14 10:45 | EKG12_ITS ---
Test Reason : SOB Blood Pressure : */* mmHG Vent. Rate : 65 BPM Atrial Rate : 65 BPM P-R Int : 198 ms QRS Dur : 86 ms QT Int : 440 ms P-R-T Axes : 77 37 -6 degrees QTcB Int : 457 ms Normal sinus rhythm Normal ECG Confirmed by Ranjith Beasley ([id number]), art editor STEVEN WORTHINGTON ([id number]) on 04/16/2024 6:33:31 AM Referred By: Confirmed By: Ranjith Beasley
--- NOTE | 2024-04-14 10:54 | EDS_ITS ---
HPI History of Present Illness Chief Complaint: Shortness of Breath Narrative Narrative: Patient is a 63-year-old male with past medical history of AAA status postrepair, paroxysmal atrial fibrillation on Eliquis, hypertension, ORTIZ, hyperlipidemia, COPD who presented to the emergency department the chief complaint of shortness of breath. Patient states that for the past few days he has had worsening shortness of breath which prompted him here for further evaluation management. Patient denies recent sick contacts. Patient does note that he has bilateral lower extremity swelling more than normal. Patient states that he has been using his inhalers at home however he states that he tries to not use them too much as this will trigger his atrial fibrillation. Patient denies any recent steroid use. Patient states that he has been compliant with his medications including Eliquis not missed any doses [facility] Medical History AAA (abdominal aortic aneurysm) History of cardioversion Afib PAF (paroxysmal atrial fibrillation) Abdominal aortic aneurysm without rupture Essential hypertension Abdominal aortic aneurysm Tobacco abuse Obstructive sleep apnea History of non-ST elevation myocardial infarction (NSTEMI) (09/24/18) Atherosclerotic heart disease of [place] coronary artery without angina pectoris NSTEMI (non-ST elevated myocardial infarction) History of supraventricular tachycardia Diabetes mellitus, type II Obesity (BMI 30-39.9) HLD (hyperlipidemia) HTN (hypertension) Chest pain Home Medications ?Medication ?Instructions ?Recorded ?Last Taken ?Type acetaminophen 325 mg tablet 650 mg (2 x 325 mg) PO Q6H PRN PRN 09/25/18 Unknown Rx Mild Pain (0-2/10) aspirin 81 mg tablet,delayed 81 mg PO DAILY@0800 see pcp 09/25/18 Unknown Rx release atorvastatin 80 mg tablet 80 mg PO DAILY see pcp 05/16/19 Unknown History ascorbic acid (vitamin C) 500 mg 500 mg PO DAILY see pcp 11/13/19 Unknown History capsule,extended release pyridoxine (vitamin B6) 50 mg 50 mg PO DAILY see pcp 11/13/19 Unknown History capsule (Vitamin B-6) losartan 25 mg tablet 25 mg PO BID see pc #180 tabs 11/22/21 Unknown Rx albuterol sulfate 90 mcg/actuation 2 puff inhalation Q4H PRN PRN 02/23/22 Unknown Rx aerosol inhaler (Ventolin HFA) Wheezing #8.5 grams pantoprazole 40 mg tablet,delayed 40 mg PO DAILY see pcp 03/31/22 Unknown History release alfuzosin 10 mg tablet,extended 10 mg PO DAILY see pcp 02/13/23 02/13/23 History release 24 hr [id number] 333 mg-133 1 tab PO DAILY see pcp 02/13/23 Unknown History mg-5 mg tablet metoprolol tartrate 50 mg tablet 50 mg PO BID #60 tabs 02/15/23 Unknown Rx apixaban 5 mg tablet (Eliquis) 5 mg PO BID see pcp #180 tabs 10/15/23 Unknown Rx blood sugar diagnostic (Accu-Chek 11/28/23 Unknown History Guide test strips) lancets (Accu-Chek Softclix 11/28/23 Unknown History Lancets) cholecalciferol (vitamin D3) 125 125 mcg PO QDAY 12/07/23 Unknown History mcg (5,000 unit) capsule semaglutide 0.25 mg or 0.5 mg (2 0.25 mg subcut QWEEK 02/23/24 Unknown History mg/3 mL) subcutaneous pen injector (Ozempic) coenzyme Q10 200 mg capsule (Co 200 mg PO DAILY see pcp 03/07/24 Unknown History Q-10) magnesium 250 mg tablet 500 mg PO QDAY 03/07/24 Unknown History metformin 500 mg tablet,extended 500 mg PO DAILY see pcp 03/07/24 Unknown History release 24 hr furosemide 40 mg tablet (Lasix) 40 mg PO QAM #3 tabs 03/27/24 Unknown Rx Allergy/AdvReac Type Severity Reaction Status Date / Time rosuvastatin (From Crestor) AdvReac Severe Severe Verified 04/14/24 10:14 myalgias (legs) codeine AdvReac Other Verified 04/14/24 10:14 Family History Mother Heart disease Pacemaker Father Stomach cancer Liver cancer Surgical History History of thumb surgery History of appendectomy Stented coronary artery (09/24/18) Social History Smoking Status: Never smoker alcohol intake: current alcohol intake frequency: 0-2 drinks per day Alcohol type: beer caffeine: No ROS ROS ED ROS Narrative Constitutional: Denies any fevers, chills, headaches, lightness, dizziness Eyes: Denies change in vision double vision blurry vision Cardiovascular: Denies chest pain or palpitations Respiratory: Complains of cough and shortness of breath as noted above as well as wheezing Abdomen: Denies nausea vomit diarrhea : Denies any urinary symptoms Neurological: Denies any numbness, weakness, tingling Musculoskeletal: Denies back pain Skin: Denies rashes or lesions EXAM Physical Exam Narrative Exam Narrative: General: Patient was sitting up in bed did appear to be short of breath Head: Atraumatic, normocephalic Eyes: PERRL bilateral, EOMI bilateral, no conjunctival injection noted Neck: Soft, supple, trachea midline Cardiovascular: Regular rate and rhythm no murmurs gallops rubs noted Respiratory: Patient has diminished breath sounds bilaterally Abdomen: Soft, no tenderness palpation Extremities: +1 pitting edema in the bilateral lower extremities, radial pulses +2/4 in the bilateral upper extremities, +5/5 strength noted in the bilateral upper and lower extremities Neurological: Patient following commands knew that he was at [facility] year is 2023 Skin: Warm, dry, intact no rashes or lesions noted Const Vital Signs: 04/14/24 10:13 Temperature 99 F Temperature Source Temporal Pulse Rate 65 Respiratory Rate 30 H Blood Pressure 189/87 H Blood Pressure Mean 121 Pulse Ox 96 Oxygen Delivery Method Room Air MDM MDM MDM Narrative Medical decision making narrative: Patient is a 63-year-old male who presents to the emergency department with a chief complaint of cough and shortness of breath. Patient will have a workup performed here on the differential diagnosis includes but not limited to CHF, COPD exacerbation, pneumonia. Patient will be given 500 cc bolus of IV fluids as there is concern for volume overload state therefore 30 cc/kg bolus will not be given. Patient be given 2 DuoNebs and oral prednisone. Discharge Plan Triage Chief Complaint: Shortness of Breath ED Provider: Arturo Lovett Dx/Rx/DC Orders Prescriptions: No Action coenzyme Q10 [Co Q-10] 200 mg capsule 200 mg PO DAILY atorvastatin 80 mg tablet 80 mg PO DAILY Vitamin B-6 50 mg capsule 50 mg PO DAILY ascorbic acid (vitamin C) 500 mg capsule, extended release 500 mg PO DAILY pantoprazole 40 mg tablet,delayed release (DR/EC) 40 mg PO DAILY cholecalciferol (vitamin D3) 125 mcg (5,000 unit) capsule 125 mcg PO QDAY magnesium 250 mg tablet 500 mg PO QDAY furosemide [Lasix] 40 mg tablet 40 mg PO QAM Qty: 3 0RF acetaminophen 325 MG tablet 650 mg PO Q6H PRN PRN (Reason: Mild Pain (0-2/10)) 0RF aspirin 81 MG tablet 81 mg PO DAILY@0800 0RF metformin 500 mg tablet extended release 24 hr 500 mg PO DAILY albuterol sulfate [Ventolin HFA] 90 mcg/actuation HFA aerosol inhaler 2 puff inhalation Q4H PRN PRN (Reason: Wheezing) Qty: 8.5 0RF alfuzosin 10 mg tablet extended release 24 hr 10 mg PO DAILY Patient Comments: TAKE 1 TABLET BY MOUTH EVERY NIGHT AT BEDTIME [id number] 333-133-5 mg tablet 1 tab PO DAILY metoprolol tartrate 50 mg Tablet 50 mg PO BID Qty: 60 2RF (DME) Accu-Chek Guide test strips Strip MISCELLANEOUS DAILY (DME) lancets [Accu-Chek Softclix Lancets] Misc MISCELLANEOUS DAILY Ozempic 0.25 mg or 0.5 mg (2 mg/3 mL) pen injector 0.25 mg subcut QWEEK losartan 25 mg tablet 25 mg PO BID Qty: 180 3RF Eliquis 5 mg tablet 5 mg PO BID Qty: 180 3RF Primary Care Provider: Sandhya Priest Referrals: Sandhya Priest MD [Primary Care Provider] - Print Language: Croatian
[2024-04-14] MEDS: Ipratropium/Albuterol Sulfate 3 ML AMPUL.NEB INHALATION ×5 (10:57→23:07)
[2024-04-14 11:06] LABS: Absolute Neutrophil Count 4.6 X10^3/uL (2.0-7.7); Basophil# 0.09 X10^3/uL; Basophil% 1.2 % (0-1); Eosinophil# 0.16 X10^3/uL; Eosinophils% 2.2 % (0-5); Hematocrit 39.1 % (40-54); Hemoglobin 12.8 g/dL (13.0-16.5); Lymphocyte % 24.6 % (19-41); Mean Corp Hgb Conc 32.7 g/dL (32-36); Mean Corpuscular Hgb 30.6 pg (27.0-32.0); Mean Corpuscular Volume 93.5 fL (80-94); Mean Platelet Vol. 9.2 fl (6.2-12.0); Monocyte# 0.57 X10^3/uL; Monocyte% 7.8 % (0-10); NRBC Flagged by Analyzer 0 % (0-5); Neutrophil # 4.64 X10^3/uL (2.7-7.7); Neutrophil % 63.5 % (47-70); Platelet Count 218 K/mm3 (150-450); RBC Distribution Width CV 14.1 % (11.6-14.6); RBC Distribution Width SD 47.8 fl (35.1-43.9); Red Blood Count 4.18 M/mm3 (4.6-6.2); White Blood Count 7.3 K/mm3 (4.4-11.0)
[2024-04-14 11:15] LABS: International Normalized Ratio 1.2; Prothrombin Time (Protime)PT. 15.4 SECONDS (11.7-14.9)
--- NOTE | 2024-04-14 11:15 | RAD_ITS ---
STUDY: X-RAY CHEST REASON FOR EXAM: Male, 63 years old. sob TECHNIQUE: PA and lateral views of the chest. COMPARISON: 02/12/2023 FINDINGS: Some right lower lobe atelectasis. There is no demonstrated pleural abnormality. Normal size heart. Normal mediastinum and rachel. Normal visualized pulmonary arteries. Normal visualized aortic arch and descending thoracic aorta. Normal visualized thoracic spine. Normal visualized ribs, clavicles, and shoulders. There is no demonstrated abnormality of the visualized soft tissue structures of the upper abdomen. RAD/Chest PA and Lateral IMPRESSION: Some right lower lobe atelectasis. Electronically Signed: Girish Martin MD at 11:43 EST ,
[2024-04-14 11:16] LABS: Partial Thromboplast Time 32.4 Seconds (24.1-36.2)
[2024-04-14 11:24] LABS: ALB/GLOB Ratio 1.2 RATIO (0.9-2.4); AST(SGOT) 21 U/L (15-37); Alanine Aminotransfer ALT/SGPT 41 U/L (16-61); Albumin, Serum 3.6 g/dL (3.2-5.0); Alkaline Phosphatase 47 U/L (45-117); Anion Gap 5 (5-15); BUN 23 mg/dL (7-18); BUN/Creat Ratio 17.4 RATIO (10-20); Calcium,Total 9.2 mg/dL (8.5-10.1); Chloride 107 mmol/L (98-107); Creatinine, Serum 1.32 mg/dL (0.70-1.30); EST Glomerular Filtration Rate 58 mL/min (>60); Est Glom Filt Rate - Afr Amer 70 mL/min (>60); Glucose 123 mg/dL (74-106); Potassium 3.8 mmol/L (3.5-5.1); Protein, Total 6.6 g/dL (6.4-8.2); Sodium Level 139 mmol/L (136-145); Troponin-I HS 26 pg/mL (3.0-78.0)
[2024-04-14] MEDS: 0.9% Normal Saline (500mL Bag) 500 ML 999 ML IV (11:28)
[2024-04-14] MEDS: predniSONE 20 MG Tablet 60 MG PO (11:29)
[2024-04-14 12:52] LABS: Lactic Acid 1.4 mmol/L (0.4-1.9)
[2024-04-14 12:55] LABS: BNP,B-Type NATRIURETIC PEPTIDE 189.5 pg/mL (0-100)
[2024-04-14 13:27] LABS: Mucous, Urine 0 SEEN /hpf (<or=2+)
[2024-04-14 13:29] LABS: Color, Urine Yellow (Yellow); Glucose, Dipstick Normal (Normal); Ketone-Dipstick Negative (Negative); Leukocyte Esterase-Dipstick 25 /ul (Negative); Nitrite-Dipstick Negative (Negative); Occult Blood-Urine 10 /ul (Negative); Protein-Dipstick 15 mg/dl (Negative); Urine Bilirubin Dipstick Negative (Negative); Urine Clarity Clear (Clear); Urine Urobilinogen Normal (Normal); Urine pH 6.5 (5.0 - 8.0)
[2024-04-14 13:35] LABS: Bacteria RARE /hpf (None Seen); Red Blood Cells-Urine 0-5 SEEN /hpf (0-5); Squamous Epithelial Cells - UA 0-5 SEEN /hpf (0-5); White Blood Cells 0-5 SEEN /hpf (0-5)
--- NOTE | 2024-04-14 14:29 | PCM.HP.STD ---
HPI - General General Date of Admission: 04/14/24 Date of Service: 04/14/24 Chief Complaint: Increasing SOB HPI Narrative BRAVO FREEDMAN, is a 63-year-old male history of AAA status post repair, CAD, diabetes, paroxysmal atrial fibrillation on Eliquis, hypertension, ORTIZ, COPD presented [facility] ED 04/14/2024 due to increasing shortness of breath. He has been using his home inhalers however he has been afraid to use them too much worried that it will trigger his A-fib. In the ED lab workup was fairly benign however patient desaturated to 85% on room air and does not wear home O2 so hospitalist contacted for admission. Patient evaluated at bedside and reports that gradually over the past several days he has had increasing shortness of breath and today it was so bad that he knew he had to come to the hospital. Does have some cough with nebulizers but no significant productive cough. Does have a bit of a headache and reports he has had high blood pressure over the past month or so and has had some swelling in his legs but this has been since he had a AAA repair around October. Does report compliance with his CPAP, and a little bit of chest tightness earlier that went away once his breathing improved with nebulizer. No fevers or chills, denies any other acute focal complaints [facility] Medical History AAA (abdominal aortic aneurysm) History of cardioversion Afib PAF (paroxysmal atrial fibrillation) Abdominal aortic aneurysm without rupture Essential hypertension Abdominal aortic aneurysm Tobacco abuse Obstructive sleep apnea History of non-ST elevation myocardial infarction (NSTEMI) (09/24/18) Atherosclerotic heart disease of [place] coronary artery without angina pectoris NSTEMI (non-ST elevated myocardial infarction) History of supraventricular tachycardia Diabetes mellitus, type II Obesity (BMI 30-39.9) HLD (hyperlipidemia) HTN (hypertension) Chest pain Home Medications ?Medication ?Instructions ?Recorded ?Last Taken ?Type acetaminophen 325 mg tablet 650 mg (2 x 325 mg) PO Q6H PRN PRN 09/25/18 Unknown Rx Mild Pain (0-2/10) aspirin 81 mg tablet,delayed 81 mg PO DAILY@0800 see pcp 09/25/18 04/14/24 Rx release atorvastatin 80 mg tablet 80 mg PO DAILY see pcp 05/16/19 04/14/24 History ascorbic acid (vitamin C) 500 mg 500 mg PO DAILY see pcp 11/13/19 04/14/24 History capsule,extended release pyridoxine (vitamin B6) 50 mg 50 mg PO DAILY see pcp 11/13/19 04/14/24 History capsule (Vitamin B-6) losartan 25 mg tablet 25 mg PO BID see pc #180 tabs 11/22/21 04/14/24 Rx albuterol sulfate 90 mcg/actuation 2 puff inhalation Q4H PRN PRN 02/23/22 04/14/24 Rx aerosol inhaler (Ventolin HFA) Wheezing #8.5 grams pantoprazole 40 mg tablet,delayed 40 mg PO DAILY see pcp 03/31/22 04/14/24 History release alfuzosin 10 mg tablet,extended 10 mg PO DAILY see pcp 02/13/23 04/14/24 History release 24 hr metoprolol tartrate 50 mg tablet 50 mg PO BID #60 tabs 02/15/23 04/14/24 Rx apixaban 5 mg tablet (Eliquis) 5 mg PO BID see pcp #180 tabs 10/15/23 04/14/24 Rx blood sugar diagnostic (Accu-Chek 11/28/23 Unknown History Guide test strips) lancets (Accu-Chek Softclix 11/28/23 Unknown History Lancets) cholecalciferol (vitamin D3) 125 125 mcg PO QDAY 12/07/23 04/14/24 History mcg (5,000 unit) capsule semaglutide 0.25 mg or 0.5 mg (2 0.25 mg subcut QWEEK 02/23/24 04/13/24 History mg/3 mL) subcutaneous pen injector (Ozempic) coenzyme Q10 200 mg capsule (Co 200 mg PO DAILY see pcp 03/07/24 04/13/24 History Q-10) magnesium 250 mg tablet 500 mg PO QDAY 03/07/24 04/14/24 History metformin 500 mg tablet,extended 1,000 mg PO DAILY see pcp 03/07/24 04/13/24 History release 24 hr doxycycline hyclate 100 mg capsule 100 mg PO BID 7 days #14 caps 04/14/24 Unknown Rx prednisone 50 mg tablet 50 mg PO DAILY 5 days #5 tabs 04/14/24 Unknown Rx Allergy/AdvReac Type Severity Reaction Status Date / Time rosuvastatin (From Crestor) AdvReac Severe Severe Verified 04/14/24 10:14 myalgias (legs) codeine AdvReac Other Verified 04/14/24 10:14 Family History Mother Heart disease Pacemaker Father Stomach cancer Liver cancer Surgical History History of thumb surgery History of appendectomy Stented coronary artery (09/24/18) Social History Smoking Status: Never smoker alcohol intake: current alcohol intake frequency: 0-2 drinks per day Alcohol type: beer caffeine: No ROS ROS Narrative General: Denies fever/chills HENT: Slight headache, denies stuffy nose, denies sore throat EYES: Denies changes in vision Resp: Little bit of a cough, increased shortness of breath at rest as well as exertion Cardiac: Had a little bit of a chest tightness feeling that was resolved with nebulizer GI: Denies abdominal pain, denies changes in bowel, denies nausea/vomiting : Denies changes in urination Extremity: Has some swelling in his lower extremities but these have been present since his AAA surgery 6 months ago MSK: Denies weakness Neuro: Denies any numbness/tingling Heme: Denies any bleeding or bruising Skin: Denies rashes Psychiatric: No complaints voiced Vital Signs Vital Signs Vital Signs: 04/14/24 10:13 04/14/24 11:00 04/14/24 11:07 Temperature 99 F Temperature Source Temporal Pulse Rate 65 65 Respiratory Rate 30 H 20 H Respiratory Effort Respiratory Depth Respiratory Pattern Tachypnea Blood Pressure 189/87 H Blood Pressure Mean 121 Pulse Ox 96 93 Oxygen Delivery Method Room Air Room Air 04/14/24 11:35 04/14/24 12:00 04/14/24 12:08 Temperature 97.9 F 97.8 F Temperature Source Oral Temporal Pulse Rate 89 62 Respiratory Rate 19 H 15 Respiratory Effort Short of Breath Respiratory Depth Shallow Respiratory Pattern Tachypnea Blood Pressure 166/91 H 170/98 H Blood Pressure Mean 116 122 Pulse Ox 96 94 Oxygen Delivery Method Room Air Room Air Room Air 04/14/24 12:36 04/14/24 12:36 04/14/24 13:00 Temperature 98.4 F Temperature Source Oral Pulse Rate 61 64 Respiratory Rate 15 17 Respiratory Effort Respiratory Depth Respiratory Pattern Blood Pressure 193/94 H Blood Pressure Mean 127 Pulse Ox 95 94 Oxygen Delivery Method Room Air Room Air 04/14/24 14:00 Temperature 97.9 F Temperature Source Temporal Pulse Rate 68 Respiratory Rate 24 H Respiratory Effort Respiratory Depth Respiratory Pattern Blood Pressure 176/103 H Blood Pressure Mean 127 Pulse Ox 92 Oxygen Delivery Method Room Air Weight Weight: 106.821 kg Body Mass Index (BMI) 34.7 Physical Exam Narrative General: Alert, oriented, sitting up on side of the bed with difficulty breathing HEENT: Atraumatic, normocephalic Eyes: Anicteric, normal conjunctiva, extraocular movements grossly intact Neck: Supple Respiratory: Increased respiratory effort, diminished bilaterally Cardiovascular: Regular rate and rhythm GI: Soft, nontender, nondistended Extremities: Trace lower extremity edema Musculoskeletal: Moving all extremities Neuro: No overt focal neurological deficits Skin: No rashes appreciated Psych: Cooperative Results Lab / Micro Data 04/14/24 10:39 04/14/24 10:39 Labs: Laboratory Results - last 24 hr 04/14/24 10:39: WBC 7.3, RBC 4.18 L, Hgb 12.8 L, Hct 39.1 L, MCV 93.5, MCH 30.6, MCHC 32.7, RDW Std Deviation 47.8 H, RDW Coeff of Frank 14.1, Plt Count 218, MPV 9.2, Immature Gran % (Auto) 0.700, Neut % (Auto) 63.5, Lymph % (Auto) 24.6, [place] % (Auto) 7.8, Eos % (Auto) 2.2, Baso % (Auto) 1.2 H, Absolute Neuts (auto) 4.6, Absolute Lymphs (auto) 1.80, Nucleated RBC % 0, PT 15.4 H, INR 1.2, APTT 32.4, Sodium 139, Potassium 3.8, Chloride 107, Carbon Dioxide 27.0, Anion Gap 5, BUN 23 H, Creatinine 1.32 H, Est GFR (MDRD) Af Amer 70, Est GFR (MDRD) Non-Af 58 L, BUN/Creatinine Ratio 17.4, Glucose 123 H, Calcium 9.2, Total Bilirubin 0.60, AST 21, ALT 41, Alkaline Phosphatase 47, Troponin I High Sens 26, B-Natriuretic Peptide 189.5 H, Total Protein 6.6, Albumin 3.6, Globulin 3.0, Albumin/Globulin Ratio 1.2 04/14/24 12:01: Lactic Acid 1.4 04/14/24 13:20: Urine Color Yellow, Urine Clarity Clear, Urine pH 6.5, Ur Specific [place] 1.010, Urine Protein 15 H, Urine Glucose (UA) Normal, Urine Ketones Negative, Urine Occult Blood 10 H, Urine Nitrite Negative, Urine Bilirubin Negative, Urine Urobilinogen Normal, Ur Leukocyte Esterase 25 H, Urine RBC 0-5 SEEN, Urine WBC 0-5 SEEN, Ur Squamous Epith Cells 0-5 SEEN, Urine Bacteria RARE, Urine Mucus 0 SEEN Micro: Microbiology 04/14/24 11:10 Mucosa - Nose SARS-CoV-2, Influenza & RSV (PCR) - Final Imaging Radiology Impression Chest X-Ray 04/14/24 11:15 IMPRESSION: Some right lower lobe atelectasis. Electronically Signed: Girish Martin MD at 11:43 EST Reading Location ID and State: [id number] [facility] Tel , Service support , Assessment & Plan Assessment/Plan (1) COPD exacerbation: PLAN: Plan # Hypoxia secondary to acute exacerbation of COPD -Admit to floor, continuous O2 monitoring -Chest x-ray: No acute process COVID negative, obtain respiratory panel, sputum culture if able -O2 in place, wean as tolerated -IV methylprednisone -Scheduled DuoNebs -Albuterol prn -Patient does not meet antibiotic criteria so these are not started -Incentive spirometer -Mucinex #HTN urgency -Patient hypertensive with blood pressure 193/94 -When he was seen in the office last month with cardiology they were concerned about his elevated blood pressure and had planned to increase losartan or amlodipine depending on his blood pressure readings, will increase losartan -Also placed order for hydralazine as needed #Hx CAD -Follows with cardiology -Per their note from most recent office visit 03/27/2024 ?Successful PTCA/EAGLE mid LCX with a 3.0 x 20 Promus Synergy; Successful PCI with PTCA to the ostium of OM#2 with a 2.0 x 12 balloon; 50%-->30%, no dissection. 09/24/18 per KRISTI @ [facility]? -Continue aspirin, statin, beta-luci #Type 2 diabetes mellitus -Glucose checks and sliding scale insulin # Paroxysmal atrial fibrillation -hx DCCV -Presently normal sinus rhythm -Continue home Eliquis and metoprolol #ORTIZ -Continue CPAP, patient reports compliance with this #Hx AAA -w/ repair w/ Dr. Oneal #GERD -Continue PPI #DVT ppx: On Ana Vo MD Charges/Coding Visit Charges Inpatient E&M: 49320 Init Hosp L2
[2024-04-14] MEDS: Ceftriaxone 1 GM/50 ML BAG IV (14:45)
[2024-04-14] MEDS: hydrALAZINE 20 MG/ML Vial 5 MG IV (16:41)
[2024-04-14] MEDS: Acetaminophen 325 MG Tablet 650 MG PO (16:42)
[2024-04-14] MEDS: Losartan Potassium 50 MG Tablet PO (16:43)
[2024-04-14 16:48] LABS: Bedside Glucose 138 mg/dL (74-106)
--- NOTE | 2024-04-14 16:53 | CPS ---
patient refusing cpap for tonight
[2024-04-14] MEDS: Tamsulosin HCl 0.4 MG Capsule PO (17:54)
[2024-04-14] MEDS: APIXABAN 5 MG TABLET PO (21:33)
[2024-04-14] MEDS: Metoprolol Tartrate 50 MG Tablet PO (21:33)
[2024-04-14] MEDS: guaiFENesin 1,200 MG Tablet 1200 MG PO (21:33)
[2024-04-14 23:11] LABS: Bedside Glucose 131 mg/dL (74-106)
--- NOTE | 2024-04-14 23:11 | CPS ---
2L on per pt instead of cpap just for tonight
[2024-04-14] MEDS: Morphine 2 MG/ML Syringe IV (23:52)
[2024-04-15] VITALS (14 sets, daily range): BP systolic 145–186; BP diastolic 77–119; PULSE 66–86; RESP 16–19; TEMP 36.4–36.8; O2SAT 89–93; BMI 41.5
--- NOTE | 2024-04-15 04:45 | CPS ---
Pt did not want to wear cpap tonight just wanted to use O2 nasal cannula 2L
[2024-04-15] MEDS: hydrALAZINE 20 MG/ML Vial 5 MG IV (05:03)
[2024-04-15] MEDS: Acetaminophen 325 MG Tablet 650 MG PO ×2 (05:03→14:03)
[2024-04-15] MEDS: Insulin Lispro 100 UNIT/ML INSULN.PEN SC ×4 (06:23→22:53)
[2024-04-15] MEDS: Ipratropium/Albuterol Sulfate 3 ML AMPUL.NEB INHALATION ×2 (06:58→19:21)
[2024-04-15 07:04] LABS: Absolute Lymphocyte Count 1.14 X10^3/uL (0.83-4.51); Absolute Neutrophil Count 7.6 X10^3/uL (2.0-7.7); Basophil# 0.01 X10^3/uL; Basophil% 0.1 % (0-1); Hematocrit 44.1 % (40-54); Hemoglobin 14.4 g/dL (13.0-16.5); Lymphocyte # 1.14 X10^3/ul (0.83-4.51); Lymphocyte % 12.6 % (19-41); Mean Corp Hgb Conc 32.7 g/dL (32-36); Mean Corpuscular Hgb 29.9 pg (27.0-32.0); Mean Corpuscular Volume 91.7 fL (80-94); Mean Platelet Vol. 8.8 fl (6.2-12.0); Monocyte% 2.2 % (0-10); NRBC Flagged by Analyzer 0 % (0-5); Neutrophil # 7.63 X10^3/uL (2.7-7.7); Neutrophil % 84.1 % (47-70); Platelet Count 265 K/mm3 (150-450); RBC Distribution Width CV 14.1 % (11.6-14.6); RBC Distribution Width SD 47.5 fl (35.1-43.9); Red Blood Count 4.81 M/mm3 (4.6-6.2); White Blood Count 9.1 K/mm3 (4.4-11.0)
--- NOTE | 2024-04-15 07:47 | PCM.PN.HOSP ---
Reason for Visit Reason for Visit: Diagnoses Chronic obstructive pulmonary disease with (acute) exacerbation (04/14/24) Subjective Subjective Patient is a 63-year-old gentleman who presented with progressive shortness of breath. An assessment of COPD with acute exacerbation made admitted to monitored for further management Objective Data Objective Data Vital Signs: Vital Signs Temp Pulse Resp BP Pulse Ox O2 Del Method O2 Flow Rate 97.6 F L 76 18 186/119 H 93 Room Air 2 04/15/24 03:40 04/15/24 06:59 04/15/24 06:59 04/15/24 05:03 04/15/24 06:59 04/15/24 06:59 04/14/24 23:11 Oxygen Flow Rate (L/min) 2 Oxygen Delivery Method Room Air Weight: 127.5 kg Body Mass Index (BMI) 41.5 Intake & Output: Intake and Output for Last 24 Hours 04/13/24 04/14/24 04/15/24 23:59 23:59 23:59 Intake Total 550 / 550 Balance 550 / 550 Lab / Micro Data 04/15/24 06:41 04/15/24 06:41 Labs: Laboratory Results - last 24 hr 04/14/24 10:39: WBC 7.3, RBC 4.18 L, Hgb 12.8 L, Hct 39.1 L, MCV 93.5, MCH 30.6, MCHC 32.7, RDW Std Deviation 47.8 H, RDW Coeff of Frank 14.1, Plt Count 218, MPV 9.2, Immature Gran % (Auto) 0.700, Neut % (Auto) 63.5, Lymph % (Auto) 24.6, [place] % (Auto) 7.8, Eos % (Auto) 2.2, Baso % (Auto) 1.2 H, Absolute Neuts (auto) 4.6, Absolute Lymphs (auto) 1.80, Nucleated RBC % 0, PT 15.4 H, INR 1.2, APTT 32.4, Sodium 139, Potassium 3.8, Chloride 107, Carbon Dioxide 27.0, Anion Gap 5, BUN 23 H, Creatinine 1.32 H, Est GFR (MDRD) Af Amer 70, Est GFR (MDRD) Non-Af 58 L, BUN/Creatinine Ratio 17.4, Glucose 123 H, Calcium 9.2, Total Bilirubin 0.60, AST 21, ALT 41, Alkaline Phosphatase 47, Troponin I High Sens 26, B-Natriuretic Peptide 189.5 H, Total Protein 6.6, Albumin 3.6, Globulin 3.0, Albumin/Globulin Ratio 1.2 04/14/24 12:01: Lactic Acid 1.4 04/14/24 13:20: Urine Color Yellow, Urine Clarity Clear, Urine pH 6.5, Ur Specific [place] 1.010, Urine Protein 15 H, Urine Glucose (UA) Normal, Urine Ketones Negative, Urine Occult Blood 10 H, Urine Nitrite Negative, Urine Bilirubin Negative, Urine Urobilinogen Normal, Ur Leukocyte Esterase 25 H, Urine RBC 0-5 SEEN, Urine WBC 0-5 SEEN, Ur Squamous Epith Cells 0-5 SEEN, Urine Bacteria RARE, Urine Mucus 0 SEEN 04/14/24 16:27: POC Glucose 138 H 04/14/24 21:38: POC Glucose 131 H 04/15/24 06:41: WBC 9.1, RBC 4.81, Hgb 14.4, Hct 44.1, MCV 91.7, MCH 29.9, MCHC 32.7, RDW Std Deviation 47.5 H, RDW Coeff of Frank 14.1, Plt Count 265, MPV 8.8, Immature Gran % (Auto) 1.000 H, Neut % (Auto) 84.1 H, Lymph % (Auto) 12.6 L, [place] % (Auto) 2.2, Eos % (Auto) 0.0, Baso % (Auto) 0.1, Absolute Neuts (auto) 7.6, Absolute Lymphs (auto) 1.14, Nucleated RBC % 0 Micro: Microbiology 04/14/24 11:10 Mucosa - Nose SARS-CoV-2, Influenza & RSV (PCR) - Final Radiography Diagnostic Testing: Radiology Impression Chest X-Ray 04/14/24 11:15 IMPRESSION: Some right lower lobe atelectasis. Electronically Signed: Girish Martin MD at 11:43 EST , Physical Exam Narrative GENERAL: cooperative but dyspneic at rest HEENT: Atraumatic; normocephalic EYES; Anicteric, Normal Conjunctiva NECK; supple, normal thyroid, RESPIRATORY: Diminished to auscultation CARDIOVASCULAR: Regular S1 S2, GI: soft, normoactive bowel sounds, : No Renal angle tenderness; EXTREMITIES: No edema, no clubbing, MUSCULOSKELETAL: no muscle wasting NEURO: Awake; no lateralizing signs. SKIN: No Rash PSYCH; Flat affect Assessment & Plan Assessment/Plan (1) COPD exacerbation: PLAN: Plan Patient is a 63-year-old gentleman who presented with progressive shortness of breath. An assessment of COPD with acute exacerbation made admitted to monitored for further management 1. Acute hypoxia Secondary to acute exacerbation of COPD as well as suspected CHF. Patient was placed on supplemental oxygen ordered proBNP as part of his evaluation and his underlying COPD exacerbation treated per protocol 2. COPD with acute ? Patient started on bronchodilator treatment, systemic steroid as well as antibiotic therapy. Patient placed on oxygen titrated to keep saturation greater than 90. 3. Acute hypertensive urgency -Patient admitted blood pressure 193/94 did continue with home meds and adjusted doses. Added amlodipine and placed on hydralazine as needed for systolic blood pressure greater than 160 4. Coronary artery disease ? With successful PCI of the mid circumflex artery following cardiac catheterization in September 2018; patient is on guideline directed medical therapy 5. Diabetes mellitus type II -patient's oral hypoglycemics held. Placed on long acting insulin, Accu-Cheks a.c. and at bedtime and covered with sliding scale insulin 6. Paroxysmal atrial fibrillation ? With previous DCCV. Patient is in sinus rhythm so on metoprolol for rate control as well as systemic anticoagulation with apixaban 7. Obstructive sleep apnea -consistent use of CPAP encouraged 8. Hx AAA -w/ repair w/ Dr. Oneal 9. GERD -Continue PPI 10.Class III obesity with BMI of 41.5 Complicating care weight loss advised. 11. DVT ppx - On Eliquis Time spent in the patient's overall evaluation,decision-making process, review of diagnostic data, adjustment of management, discussion with other providers, nursing nursing and ancillary staff involved in patient's care documentation, 52 Minutes Charges/Coding Visit Charges Inpatient E&M: 83257 [facility] Hosp L3
[2024-04-15 08:23] LABS: Anion Gap 9 (5-15); BUN 21 mg/dL (7-18); BUN/Creat Ratio 18.3 RATIO (10-20); Calcium,Total 9.8 mg/dL (8.5-10.1); Chloride 103 mmol/L (98-107); Creatinine, Serum 1.15 mg/dL (0.70-1.30); EST Glomerular Filtration Rate 68 mL/min (>60); Est Glom Filt Rate - Afr Amer 82 mL/min (>60); Estimated Creatinine Clearance 86.88 ml/min; Glucose 173 mg/dL (74-106); Potassium 4.3 mmol/L (3.5-5.1); Sodium Level 136 mmol/L (136-145)
[2024-04-15] MEDS: Aspirin E.C. 81 MG Tablet PO (08:32)
[2024-04-15] MEDS: Pantoprazole Sodium 40 MG Tablet PO (08:32)
[2024-04-15] MEDS: guaiFENesin 1,200 MG Tablet 1200 MG PO ×2 (08:32→22:49)
[2024-04-15] MEDS: APIXABAN 5 MG TABLET PO ×2 (08:32→22:49)
[2024-04-15] MEDS: Magnesium Chloride 64 MG Delay Rel.Tablet 128 MG PO (08:33)
[2024-04-15] MEDS: Metoprolol Tartrate 50 MG Tablet PO ×2 (08:33→22:48)
[2024-04-15] MEDS: Losartan Potassium 50 MG Tablet PO ×2 (08:34→22:49)
--- NOTE | 2024-04-15 09:20 | CASEMGMT ---
NGUYEN MOORE Assessment: Face to Face with pt for initial transition planning/care coordination assessment. NGUYEN MOORE introduced self and role at [facility], pt voices understanding and consents to assessment. Pt is A&O x4 and answers all questions appropriately at this time. Pt lying in bed in no distress. Care providers, pharmacy, and demographics verified/updated. Strata: 3 Admitting Dx: COPD exacerbation, Acute hypoxic resp. failure. PCP: [facility] Specialists: AMANDA; Kael, Urologist; Kimmy, vascular; Hira, Podiatry. [facility] Insurance: [employer] Prescription Benefit: yes LNOK: , Steph Living Arrangements: Pt lives with in a mobile home with ramp to enter. ADLs: I with ADLs and IADLs. Transportation: Pt drives self and denies concerns with transportation. DME: Glucometer and supplies, CPAP with 2L O2 HS only through [place], [facility]SNF:Denies Hx of. Pt states no concerns with going home at time of dc. Pt states no further concerns/needs. CM to follow. Advised pt to ask CM if any further question/concerns/needs arise, voices understanding. Pt Goal: Home Plan: Home, follow for O2 changes. Sravanthi CEDILLO CM
[2024-04-15] MEDS: amLODIPine 10 MG Tablet PO (09:41)
[2024-04-15 11:19] LABS: BNP,B-Type NATRIURETIC PEPTIDE 220.9 pg/mL (0-100)
[2024-04-15] MEDS: Furosemide 40 MG/4 ML Vial IV ×2 (11:42→22:48)
[2024-04-15] MEDS: 0.9% Saline Lock 10 ML Syringe IV ×2 (11:42→22:49)
[2024-04-15 11:51] LABS: Bedside Glucose 177 mg/dL (74-106)
[2024-04-15 12:12] LABS: Bedside Glucose 202 mg/dL (74-106)
[2024-04-15] MEDS: Senna/Docusate Sodium 1 Tablet 2 TABLET PO (16:13)
[2024-04-15] MEDS: Polyethylene Glycol 3350 17 GM PACKET PO (16:13)
[2024-04-15] MEDS: Tamsulosin HCl 0.4 MG Capsule PO (16:51)
[2024-04-15 17:17] LABS: Bedside Glucose 186 mg/dL (74-106)
[2024-04-15] MEDS: Atorvastatin Calcium 80 MG Tablet PO (22:48)
[2024-04-15 23:20] LABS: Bedside Glucose 193 mg/dL (74-106)
[2024-04-16] VITALS (9 sets, daily range): BP systolic 126–150; BP diastolic 75–99; PULSE 65–81; RESP 16–18; TEMP 36.6–36.9; O2SAT 84–93; BMI 39.2
[2024-04-16] MEDS: Furosemide 40 MG/4 ML Vial IV (06:00)
[2024-04-16] MEDS: Insulin Lispro 100 UNIT/ML INSULN.PEN SC ×2 (06:15→12:03)
[2024-04-16 07:01] LABS: Bedside Glucose 174 mg/dL (74-106)
[2024-04-16] MEDS: Ipratropium/Albuterol Sulfate 3 ML AMPUL.NEB INHALATION ×2 (07:45→11:20)
[2024-04-16] MEDS: Aspirin E.C. 81 MG Tablet PO (08:31)
[2024-04-16] MEDS: guaiFENesin 1,200 MG Tablet 1200 MG PO (10:15)
[2024-04-16] MEDS: amLODIPine 10 MG Tablet PO (10:15)
[2024-04-16] MEDS: Pantoprazole Sodium 40 MG Tablet PO (10:15)
[2024-04-16] MEDS: Metoprolol Tartrate 50 MG Tablet PO (10:16)
[2024-04-16] MEDS: Losartan Potassium 50 MG Tablet PO (10:16)
[2024-04-16] MEDS: Magnesium Chloride 64 MG Delay Rel.Tablet 128 MG PO (10:16)
[2024-04-16] MEDS: APIXABAN 5 MG TABLET PO (10:16)
[2024-04-16 11:18] LABS: Anion Gap 9 (5-15); BUN 40 mg/dL (7-18); BUN/Creat Ratio 22.1 RATIO (10-20); Calcium,Total 10.2 mg/dL (8.5-10.1); Chloride 96 mmol/L (98-107); Creatinine, Serum 1.81 mg/dL (0.70-1.30); EST Glomerular Filtration Rate 40 mL/min (>60); Est Glom Filt Rate - Afr Amer 49 mL/min (>60); Estimated Creatinine Clearance 53.59 ml/min; Glucose 256 mg/dL (74-106); Magnesium 2.3 mg/dL (1.6-2.6); Sodium Level 132 mmol/L (136-145)
--- NOTE | 2024-04-16 12:13 | PN.HOSP_ITS ---
Reason for Visit Reason for Visit: Diagnoses Chronic obstructive pulmonary disease with (acute) exacerbation (04/14/24) Subjective Subjective Patient seen breathing is improving. Patient had significant response to diuresis. Patient is requesting to be discharged on he however requires 3 L of oxygen with ambulation. Patient will therefore have to be discharged home with home oxygen Objective Data Objective Data Vital Signs: Vital Signs Temp Pulse Resp BP Pulse Ox O2 Del Method O2 Flow Rate 98.1 F 79 18 126/75 H 90 Room Air 2 04/16/24 09:00 04/16/24 10:16 04/16/24 09:00 04/16/24 10:16 04/16/24 09:00 04/16/24 09:00 04/14/24 23:11 Oxygen Flow Rate (L/min) 2 Oxygen Delivery Method Room Air Weight: 120.7 kg Body Mass Index (BMI) 39.2 Intake & Output: Intake and Output for Last 24 Hours 04/14/24 04/15/24 04/16/24 23:59 23:59 23:59 Intake Total 550 / 550 240 / 240 550 / 550 Balance 550 / 550 240 / 240 550 / 550 Lab / Micro Data 04/15/24 06:41 04/16/24 10:31 Labs: Laboratory Results - last 24 hr 04/15/24 16:49: POC Glucose 186 H 04/15/24 22:48: POC Glucose 193 H 04/16/24 06:33: POC Glucose 174 H 04/16/24 10:31: Sodium 132 L, Potassium 4.0, Chloride 96 L, Carbon Dioxide 27.0, Anion Gap 9, BUN 40 H, Creatinine 1.81 H, Estim Creat Clear Calc 53.59, Est GFR (MDRD) Af Amer 49 L, Est GFR (MDRD) Non-Af 40 L, BUN/Creatinine Ratio 22.1 H, G lucose 256 H, Calcium 10.2 H, Magnesium 2.3 Micro: Microbiology 04/14/24 13:20 Urine, Clean Catch Urine Culture - Final Coag Negative Staph 04/14/24 16:46 Mucosa - Nasopharyngeal Respiratory Panel (PCR) - Final 04/14/24 11:10 Mucosa - Nose SARS-CoV-2, Influenza & RSV (PCR) - Final Physical Exam Narrative GENERAL: cooperative HEENT: Atraumatic; normocephalic EYES; Anicteric, Normal Conjunctiva NECK; supple, normal thyroid, RESPIRATORY: Diminished to auscultation CARDIOVASCULAR: Regular S1 S2, GI: soft, normoactive bowel sounds, : No Renal angle tenderness; EXTREMITIES: No edema, no clubbing, MUSCULOSKELETAL: no muscle wasting NEURO: Awake; no lateralizing signs. SKIN: No Rash PSYCH; Flat affect Assessment & Plan Assessment/Plan (1) COPD exacerbation: PLAN: Plan Patient is a 63-year-old gentleman who presented with progressive shortness of breath. An assessment of COPD with acute exacerbation made admitted to monitored for further management 1. Acute hypoxia Secondary to acute exacerbation of COPD as well as suspected CHF. Patient was placed on supplemental oxygen ordered proBNP as part of his evaluation and his underlying COPD exacerbation treated per protocol ? I have reviewed the oxygen testing, and this patient qualifies for the home equipment and portability. The patient is mobile in the home and the community. 2. COPD with acute ? Patient started on bronchodilator treatment, systemic steroid as well as antibiotic therapy. Patient placed on oxygen titrated to keep saturation greater than 90. 3. Acute hypertensive urgency -Patient admitted blood pressure 193/94 did continue with home meds and adjusted doses. Added amlodipine and placed on hydralazine as needed for systolic blood pressure greater than 160 ? 04/2024 significant improvement in kidney 4. Coronary artery disease ? With successful PCI of the mid circumflex artery following cardiac catheterization in September 2018; patient is on guideline directed medical therapy 5. Diabetes mellitus type II -patient's oral hypoglycemics held. Placed on long acting insulin, Accu-Cheks a.c. and at bedtime and covered with sliding scale insulin 6. Paroxysmal atrial fibrillation ? With previous DCCV. Patient is in sinus rhythm so on metoprolol for rate control as well as systemic anticoagulation with apixaban 7. Obstructive sleep apnea -consistent use of CPAP encouraged 8. Hx AAA -w/ repair w/ Dr. Oneal 9. GERD -Continue PPI 10.Class III obesity with BMI of 41.5 Complicating care weight loss advised. 11. Acute kidney injury ? Secondary to diuretic therapy Lasix dose adjusted ? Plan is for patient to have a BMP to be performed as outpatient 12. Acute congestive heart failure with preserved ejection fraction ? Echo from 01/18/2024 demonstrated EF of 65%. Patient responded to diuretic therapy 13. DVT ppx - On Eliquis Time spent in the patient's overall evaluation,decision-making process, review of diagnostic data, adjustment of management, discussion with other providers, nursing nursing and ancillary staff involved in patient's care documentation, 38 Minutes Charges/Coding Visit Charges Inpatient E&M: 04343 Subs Hosp L2
[2024-04-16 12:14] LABS: Bedside Glucose 298 mg/dL (74-106)
--- NOTE | 2024-04-16 12:18 | DS.PCM_ITS ---
Providers Date of Admission: 04/14/24 Date of Discharge: 04/16/24 Primary Care Physician: Dr. Sandhya Priest MD Reason For Visit: COPD EXACERBATION, ACUTE HYPOXIC RESP FAILURE Diagnosis Discharge Diagnosis (1) COPD exacerbation: Status: Chronic Code(s): J44.1 - Chronic obstructive pulmonary disease with (acute) exacerbation Plan Patient is a 63-year-old gentleman who presented with progressive shortness of breath. An assessment of COPD with acute exacerbation made admitted to monitored for further management 1. Acute hypoxia Secondary to acute exacerbation of COPD as well as suspected CHF. Patient was placed on supplemental oxygen ordered proBNP as part of his evaluation and his underlying COPD exacerbation treated per protocol ? I have reviewed the oxygen testing, and this patient qualifies for the home equipment and portability. The patient is mobile in the home and the community. 2. COPD with acute ? Patient started on bronchodilator treatment, systemic steroid as well as antibiotic therapy. Patient placed on oxygen titrated to keep saturation greater than 90. 3. Acute hypertensive urgency -Patient admitted blood pressure 193/94 did continue with home meds and adjusted doses. Added amlodipine and placed on hydralazine as needed for systolic blood pressure greater than 160 ? 04/2024 significant improvement in kidney 4. Coronary artery disease ? With successful PCI of the mid circumflex artery following cardiac catheterization in September 2018; patient is on guideline directed medical therapy 5. Diabetes mellitus type II -patient's oral hypoglycemics held. Placed on long acting insulin, Accu-Cheks a.c. and at bedtime and covered with sliding scale insulin 6. Paroxysmal atrial fibrillation ? With previous DCCV. Patient is in sinus rhythm so on metoprolol for rate control as well as systemic anticoagulation with apixaban 7. Obstructive sleep apnea -consistent use of CPAP encouraged 8. Hx AAA -w/ repair w/ Dr. Oneal 9. GERD -Continue PPI 10.Class III obesity with BMI of 41.5 Complicating care weight loss advised. 11. Acute kidney injury ? Secondary to diuretic therapy Lasix dose adjusted ? Plan is for patient to have a BMP to be performed as outpatient 12. Acute congestive heart failure with preserved ejection fraction ? Echo from 01/18/2024 demonstrated EF of 65%. Patient responded to diuretic therapy 13. DVT ppx - On Eliquis Time spent in the patient's overall evaluation,decision-making process, review of diagnostic data, adjustment of management, discussion with other providers, nursing nursing and ancillary staff involved in patient's care documentation, 38 Minutes Medications at Discharge Home Medications acetaminophen 325 mg tablet 650 mg (2 x 325 mg) PO Q6H PRN PRN Mild Pain (0- 2/10) 09/25/18 aspirin 81 mg tablet,delayed release 81 mg PO DAILY@0800 see pcp 09/25/18 atorvastatin 80 mg tablet 80 mg PO DAILY see pcp 05/16/19 ascorbic acid (vitamin C) 500 mg capsule,extended release 500 mg PO DAILY see pcp 11/13/19 pyridoxine (vitamin B6) 50 mg capsule (Vitamin B-6) 50 mg PO DAILY see pcp 11/13/19 losartan 25 mg tablet 25 mg PO BID see pc #180 tabs 11/22/21 albuterol sulfate 90 mcg/actuation aerosol inhaler (Ventolin HFA) 2 puff inhalation Q4H PRN PRN Wheezing #8.5 grams 02/23/22 pantoprazole 40 mg tablet,delayed release 40 mg PO DAILY see pcp 03/31/22 alfuzosin 10 mg tablet,extended release 24 hr 10 mg PO DAILY see pcp 02/13/23 metoprolol tartrate 50 mg tablet 50 mg PO BID #60 tabs 02/15/23 apixaban 5 mg tablet (Eliquis) 5 mg PO BID see pcp #180 tabs 10/15/23 blood sugar diagnostic (Accu-Chek Guide test strips) 11/28/23 lancets (Accu-Chek Softclix Lancets) 11/28/23 cholecalciferol (vitamin D3) 125 mcg (5,000 unit) capsule 125 mcg PO QDAY 12/07/23 semaglutide 0.25 mg or 0.5 mg (2 mg/3 mL) subcutaneous pen injector (Ozempic) 0.25 mg subcut QWEEK 02/23/24 coenzyme Q10 200 mg capsule (Co Q-10) 200 mg PO DAILY see pcp 03/07/24 magnesium 250 mg tablet 500 mg PO QDAY 03/07/24 metformin 500 mg tablet,extended release 24 hr 1,000 mg PO DAILY see pcp 03/07/24 doxycycline hyclate 100 mg capsule 100 mg PO BID 7 days #14 caps 04/14/24 amlodipine 10 mg tablet 10 mg PO DAILY #90 tabs 04/16/24 cefdinir 300 mg capsule 300 mg PO BID #10 caps 04/16/24 furosemide 20 mg tablet (Lasix) 20 mg PO DAILY #90 tabs 04/16/24 guaifenesin 1,200 mg tablet, extended release 12 hr (Mucus Relief ER) 1,200 mg PO BID #20 tabs 04/16/24 prednisone 20 mg tablet 20 mg PO BID #10 tabs 04/16/24 Physical Exam Narrative GENERAL: cooperative HEENT: Atraumatic; normocephalic EYES; Anicteric, Normal Conjunctiva NECK; supple, normal thyroid, RESPIRATORY: Diminished to auscultation CARDIOVASCULAR: Regular S1 S2, GI: soft, normoactive bowel sounds, : No Renal angle tenderness; EXTREMITIES: No edema, no clubbing, MUSCULOSKELETAL: no muscle wasting NEURO: Awake; no lateralizing signs. SKIN: No Rash PSYCH; Flat affect Weight / BMI Weight Weight: 120.7 kg Body Mass Index (BMI) 39.2 ABG / Lab / Microbiology Data 04/15/24 06:41 04/16/24 10:31 Laboratory: Laboratory Results - last 24 hr 04/15/24 16:49: POC Glucose 186 H 04/15/24 22:48: POC Glucose 193 H 04/16/24 06:33: POC Glucose 174 H 04/16/24 10:31: Sodium 132 L, Potassium 4.0, Chloride 96 L, Carbon Dioxide 27.0, Anion Gap 9, BUN 40 H, Creatinine 1.81 H, Estim Creat Clear Calc 53.59, Est GFR (MDRD) Af Amer 49 L, Est GFR (MDRD) Non-Af 40 L, BUN/Creatinine Ratio 22.1 H, G lucose 256 H, Calcium 10.2 H, Phosphorus 4.5, Magnesium 2.3 04/16/24 11:46: POC Glucose 298 H Microbiology: Microbiology 04/14/24 13:20 Urine, Clean Catch Urine Culture - Final Coag Negative Staph 04/14/24 16:46 Mucosa - Nasopharyngeal Respiratory Panel (PCR) - Final 04/14/24 11:10 Mucosa - Nose SARS-CoV-2, Influenza & RSV (PCR) - Final D/C Instructions Discharge Diet: 8 Cup Fluid Restriction and 2000 mg Sodium Diet Discharge Activity: Return to Normal Activity Call your doctor if you observe: Fever of 101 or Higher, Shortness of breath, Fainting spells and Chest pain DC O2, CPAP, BIPAP Needs RN Home O2 Qualification: Home O2 Qualification: Is the patient on home oxygen No 04/16/24 11:35 Home O2 Qualification: AT REST 1- Pulse Ox at rest 89 04/16/24 11:35 Home O2 Qualification: WITH AMBULATION 1- Pulse Ox with ambulation 84 04/16/24 11:35 1- Oxygen Flow Rate with 0 04/16/24 11:35 ambulation 2- Pulse Ox with ambulation 89 04/16/24 11:35 2- Oxygen Flow Rate with 3 04/16/24 11:35 ambulation PSN CPAP & BiPAP: BiPAP & CPAP Settings per PSN Mode CPAP 04/16/24 00:11 Bipap Delivery Device Face Mask 04/16/24 00:11 BiPAP Expiratory Pressure 15 04/16/24 00:11 Additional Home O2 Discharge instructions: Yes Type of respiratory needs?: Oxygen (3L) Oxygen frequency: Continuous Continuous oxygen liters per minute: 3L, With Ambulation Oxygen liters per minute during Ambulation: 3L and With Sleeping Oxygen liters per minute when sleepinL DC home with Oxygen: Yes Home O2 MD Review: I have reviewed the oxygen testing, and the patient qualifies for home oxygen equipment and portability. The patient is mobile in the home and the community. Meaningful Use Info Meaningful Use Meaningful Use Diagnoses (Choose all that apply): CHF CHF SOCORRO/ARB ordered at discharge?: Yes Documented LVEF (%): 65 Ischemic Stroke Statin Dosing Therapy Reference: STATIN DOSE THERAPY REFERENCE: * Patients > 75 years receive moderate or high dose statin therapy. * Patients 75 years or YOUNGER should receive HIGH intensity statin dose unless contraindicated. You will be required to document reason for non-treatment if statin daily dose does not meet guidelines. HIGH DOSE STATIN THERAPY DAILY Atorvastatin > than or = to 40 mg Rosuvastatin > than or = to 20 mg Amlodipine + Atorvastatin > than or = to 2.5/40 mg Ezetimibe + Simvastatin 10/80 mg Simvastatin 80mg Discharge Plan Admission Admit Date/Time: 04/14/24 14:30 Attending Provider: Fernando Araya Primary Care Provider: Sandhya Priest Consulting Providers: Aisha Vo Instructions Additional Instructions / Restrictions: Take steroids as prescribed. Take antibiotics as prescribed. Use inhalers as prescribed. Return with worsening symptoms or any other concerns. Follow-up your primary care physician outpatient setting. Discharge Orders/Prescriptions Prescriptions: New doxycycline hyclate 100 mg capsule 100 mg PO BID 7 Days Qty: 14 0RF amlodipine 10 mg Tablet 10 mg PO DAILY Qty: 90 0RF guaifenesin [Mucus Relief ER] 1,200 mg Tablet Extended Release 12hr 1,200 mg PO BID Qty: 20 0RF furosemide [Lasix] 20 mg tablet 20 mg PO DAILY Qty: 90 0RF prednisone 20 mg tablet 20 mg PO BID Qty: 10 0RF cefdinir 300 mg capsule 300 mg PO BID Qty: 10 0RF Continued coenzyme Q10 [Co Q-10] 200 mg capsule 200 mg PO DAILY atorvastatin 80 mg tablet 80 mg PO DAILY Vitamin B-6 50 mg capsule 50 mg PO DAILY ascorbic acid (vitamin C) 500 mg capsule, extended release 500 mg PO DAILY pantoprazole 40 mg tablet,delayed release (DR/EC) 40 mg PO DAILY cholecalciferol (vitamin D3) 125 mcg (5,000 unit) capsule 125 mcg PO QDAY magnesium 250 mg tablet 500 mg PO QDAY acetaminophen 325 MG tablet 650 mg PO Q6H PRN PRN (Reason: Mild Pain (0-2/10)) 0RF aspirin 81 MG tablet 81 mg PO DAILY@0800 0RF metformin 500 mg tablet extended release 24 hr 1,000 mg PO DAILY albuterol sulfate [Ventolin HFA] 90 mcg/actuation HFA aerosol inhaler 2 puff inhalation Q4H PRN PRN (Reason: Wheezing) Qty: 8.5 0RF alfuzosin 10 mg tablet extended release 24 hr 10 mg PO DAILY Patient Comments: TAKE 1 TABLET BY MOUTH EVERY NIGHT AT BEDTIME metoprolol tartrate 50 mg Tablet 50 mg PO BID Qty: 60 2RF (DME) Accu-Chek Guide test strips Strip MISCELLANEOUS DAILY (DME) lancets [Accu-Chek Softclix Lancets] Misc MISCELLANEOUS DAILY Ozempic 0.25 mg or 0.5 mg (2 mg/3 mL) pen injector 0.25 mg subcut QWEEK losartan 25 mg tablet 25 mg PO BID Qty: 180 3RF Eliquis 5 mg tablet 5 mg PO BID Qty: 180 3RF Referrals / Follow Up: Latouf,Butros, MD [Primary Care Provider] - Disposition Disposition (needs filled in before D/C Order can be placed): Home, Self Care Charges/Coding Visit Charges Inpatient E&M: 28536 Disch Hosp >30min
[2024-04-16 12:33] LABS: Phosphorus 4.5 mg/dL (2.5-4.9)
--- NOTE | 2024-04-16 14:31 | CASEMGMT ---
Patient has order for discharge. Patient qualifies for increase in home oxygen. Script received. NGUYEN MOORE in to discuss increase in home oxygen and inquired if patient has tank at home Patient states he has portable tank at home and will have bring tank for at discharge. Patient states he can not work and wear oxygen. NGUYEN MOORE updated hospitalist, discharge instructions updated to excuse patient from work till cleared by PCP, patient has appt scheduled for 04/25. Patient updated regarding return to work instructions. Patient denied further needs or concerns. Patient had no further questions or concerns. NGUYEN MOORE sent referral to [facility] via [facility]. Discharge plan updated.
== END 2024-04-16 15:37 | disposition home or self-care (01) | DRG 190 ==
LOC: ED 13:57 → PCU 14:38
PROVIDERS: Admitting Provider Internal Medicine; Emergency Provider Emergency Medicine; PCP Internal Medicine; Visit Provider Internal Medicine
DX: J44.1 Chronic obstructive pulmonary disease with (acute) exacerbation (principal); I50.31 Acute diastolic (congestive) heart failure; N17.9 Acute kidney failure, unspecified; Z68.41 Body mass index [BMI] 40.0-44.9, adult; I16.0 Hypertensive urgency; I11.0 Hypertensive heart disease with heart failure; E11.9 Type 2 diabetes mellitus without complications; I48.0 Paroxysmal atrial fibrillation; I25.10 Atherosclerotic heart disease of native coronary artery without angina pectoris; K21.9 Gastro-esophageal reflux disease without esophagitis; E78.5 Hyperlipidemia, unspecified; G47.33 Obstructive sleep apnea (adult) (pediatric); I25.2 Old myocardial infarction; Z79.84 Long term (current) use of oral hypoglycemic drugs; Z95.5 Presence of coronary angioplasty implant and graft; Z79.82 Long term (current) use of aspirin; Z79.85 Long-term (current) use of injectable non-insulin antidiabetic drugs; Z79.01 Long term (current) use of anticoagulants; Z80.0 Family history of malignant neoplasm of digestive organs; E66.813 Obesity, class 3
CPT/HCPCS: 36415; 71046; 80048; 80053; 81001; 82962; 83605; 83735; 83880; 84100; 84484; 85025; 85610; 85730; 87040; 87086; 87088; 87631; 87633; 93005; 94640; 94660; 94668; 97802; 99252; 99285; J7040; A4216; G0463; J1940

== ENCOUNTER → 2024-04-21 | Outpatient (CLI) | payer BC, SELFPAY | END | disposition home or self-care (01) | LOC: PSN 07:46 | PROVIDERS: PCP Internal Medicine; Referring Provider Nurse Practitioner Gerontology; Visit Provider Nurse Practitioner Gerontology | DX: I48.0 Paroxysmal atrial fibrillation (principal); Z86.79 Personal history of other diseases of the circulatory system | CPT/HCPCS: 93225; 93226 ==

== ENCOUNTER → 2024-05-27 | Outpatient (CLI) | payer BC, SELFPAY ==
--- NOTE | 2024-05-27 17:52 | STRESSREP ---
Stress Test Report Pharmacologic myocardial perfusion stress test. 63-year-old man with a history of chest pain Resting EKG demonstrates sinus rhythm with a rate of 62 bpm. Resting blood pressure is 122/74 mmHg. 0.4 mg of regadenoson was infused per usual protocol followed by rapid intravenous saline flush injection. Continuous EKG monitoring was performed. The maximum heart rate was 84 bpm which was 53% of max impacted heart rate the maximum workload was 1 metabolic equivalent. At rest there were no ST or T wave changes noted to suggest ischemia and at peak infusion nonspecific ST changes were noted which did not meet the criteria for ischemia. No clinical angina is noted. The final blood pressure was 110/60 mmHg. Myocardial perfusion protocol. 15 mCi of technetium 99m sestamibi was injected at rest. 0.4 mg of regadenoson was infused per usual protocol. At peak infusion 45 mCi of technetium 99m sestamibi was injected stress images were obtained stress and rest images were reconstructed and compared in the short axis vertical long and horizontal long axis. Gated images were also obtained. Perfusion SPECT analysis: Review of the stress images demonstrate normal uptake of tracer noted in all areas of the myocardium. There is a medium size area noted in the anteroseptal wall with reduced perfusion and on the resting images a similar pattern is noted. The above is suggestive of a previous anteroseptal infarct. There is no reversibility or improvement to suggest ischemia. Gated SPECT analysis: The gated ejection fraction is 73%. Conclusion: Normal pharmacologic myocardial perfusion stress test. Preserved ejection fraction. Previous anterior septal infarct present
== END | disposition home or self-care (01) ==
LOC: CVS 07:21
PROVIDERS: PCP Internal Medicine; Referring Provider Nurse Practitioner Family; Visit Provider Nurse Practitioner Family
DX: R07.9 Chest pain, unspecified (principal)

== ENCOUNTER → 2024-09-02 | Outpatient (CLI) | payer BC, SELFPAY | END | disposition home or self-care (01) | LOC: PSN 06:36 | PROVIDERS: PCP Internal Medicine; Referring Provider Nurse Practitioner Family; Visit Provider Nurse Practitioner Family | DX: J44.9 Chronic obstructive pulmonary disease, unspecified (principal) | CPT/HCPCS: 94060; 94726; 94729 ==

== ENCOUNTER → 2024-09-04 | Outpatient (CLI) | payer BC, SELFPAY ==
[2024-09-04 12:28] VITALS: PULSE 66; PULSE 69; PULSE 78; PULSE 79; PULSE 80; PULSE 81; O2SAT 88; O2SAT 90; O2SAT 91; O2SAT 92; O2SAT 93
--- NOTE | 2024-09-04 12:30 | CPS ---
Patient wears 3 lpm O2 at home with pulse dose POC, on ambulation. Patient states he also has a concentrator at home where he can wear 2lpm continuous and inline with his CPAP HS. Patient started walk on room air. At the second minute SpO2 88%. Patient placed on home POC at 3lpm O2. He walked the rest of the test with 1 brief break. Patient stated he was not short of breath but his legs and back would have kept him from being able to walk any further.
--- NOTE | 2024-09-05 12:19 | PCM.PSN.6M ---
PSN 6 Minute Walk Test 6 Minute Walk Test 6 Minute Walk Test: 6 Minute Walk Test PSN:6-Minute Walk Test Start: 09/04/24 12:28 Freq: Status: Active Protocol: [id number].6MINW Document 09/04/24 12:28 YUDY (Rec: 09/04/24 12:34 [id number]) 6 Minute Walk Test Date Performed 09/04/24 Time Performed 12:15 Height 5 ft 9 in Weight: 285 lb Weight in Pounds 285.[address]: Lynnette Avila Assistive device None used: Pre-test Oxygen Delivery Room Air Method Pulse Ox (%) 92 Pulse Rate (60-100 66 beats/min) Dyspnea Ana Scale ( 0 0-10) Exertion Ana Scale 6 (6-20) 1st minute Oxygen Delivery Room Air Method Pulse Ox (%) 90 Pulse Rate (60-100 79 beats/min) 2nd minute Oxygen Delivery Room Air Method Pulse Ox (%) 88 Pulse Rate (60-100 80 beats/min) 3rd minute Oxygen Flow Rate (L/ 3 min) (L/min) Oxygen Delivery Nasal Cannula Method Pulse Ox (%) 91 Pulse Rate (60-100 78 beats/min) 4th minute Oxygen Flow Rate (L/ 3 min) (L/min) Oxygen Delivery Nasal Cannula Method Pulse Ox (%) 92 Pulse Rate (60-100 78 beats/min) 5th minute Oxygen Flow Rate (L/ 3 min) (L/min) Oxygen Delivery Nasal Cannula Method Pulse Ox (%) 91 Pulse Rate (60-100 80 beats/min) Number of Rests 1 Taken 6th minute Oxygen Flow Rate (L/ 3 min) (L/min) Oxygen Delivery Nasal Cannula Method Pulse Ox (%) 91 Pulse Rate (60-100 81 beats/min) Dyspnea Ana Scale ( 2 0-10) Exertion Ana Scale 14 (6-20) Post-test Oxygen Flow Rate (L/ 3 min) (L/min) Oxygen Delivery Nasal Cannula Method Pulse Ox (%) 93 Pulse Rate (60-100 69 beats/min) Full Laps Walked 11 Partial Lap, Number 6 of Tiles Walked Total Distance 655 Walked (ft) 09/04/24 12:30 Cardiopulmonary Services by Svetlana Cristina Patient wears 3 lpm O2 at home with pulse dose POC, on ambulation. Patient states he also has a concentrator at home where he can wear 2lpm continuous and inline with his CPAP HS. Patient started walk on room air. At the second minute SpO2 88%. Patient placed on home POC at 3lpm O2. He walked the rest of the test with 1 brief break. Patient stated he was not short of breath but his legs and back would have kept him from being able to walk any further. Initialized on 09/04/24 12:30 - END OF NOTE Interpretation Interpretation: The patient ambulated 655 feet over the course of 6 minutes beginning on room air without assistive devices. Pretesting oxygen saturation was noted to be 92% on room air. With ambulation, the lupillo oxygen saturation was 88%. 3 L/min of pulsed dose supplemental oxygen was applied and the patient was able to complete the remainder of the test while maintaining appropriate saturations. Recommendations Recommendations: 3 L/min of pulse dose supplemental oxygen is required with exertion.
== END | disposition home or self-care (01) ==
LOC: PSN 12:01
PROVIDERS: PCP Internal Medicine; Referring Provider Nurse Practitioner Family; Visit Provider Nurse Practitioner Family
DX: J44.9 Chronic obstructive pulmonary disease, unspecified (principal)
CPT/HCPCS: 94618

== ENCOUNTER → 2025-02-23 | Outpatient (CLI) | payer MEDICAID, SELFPAY ==
--- NOTE | 2025-02-23 08:20 | CT_ITS ---
PROCEDURE: LOW DOSE CT LUNG SCREENING 02/23/2025 REASON FOR EXAM: QUIT IN 2019, SMOKED 2.5 PPD FOR OVER 40 YEARS TECHNIQUE: Procedure Code: [id number] Modality: CT Procedure: LOW DOSE CT LUNG SCREENING Coronal and Sagittal reconstruction series were provided. One or more dose reduction techniques were used (e.g., Automated exposure control, adjustment of the mA and/or kV according to patient size, use of iterative reconstruction technique). REFERENCE LINK: [place] Lung-RADS RADIATION DOSE SUMMARY: CTDlvol: 4.02 mGy DLP: 128.88 mGycm COMPARISON: None FINDINGS: PULMONARY NODULES: (Only nodules >3mm are reported) Lower neck:The thyroid gland is grossly unremarkable. There is no supraclavicular lymphadenopathy. Mediastinum:There are few, non pathologically enlarged, mediastinal lymph nodes. Heart and thoracic aorta:There is cardiomegaly. There is no pericardial effusion. There is moderate calcific vascular disease of the coronary arteries and thoracic aorta. Esophagus:Normal. Upper Abdomen:There is calcific vascular disease of the visualized abdominal aorta. Chest wall:The soft tissues of the chest wall appear unremarkable. There is no axillary lymphadenopathy. There are findings of DISH throughout the thoracic spine. There is mild dextroscoliosis of the thoracic spine. Lungs, airways and pleura: There is pleural-parenchymal scarring in the middle lobe of the right lung and in the inferior segment of the lingula. There are no pulmonary nodules or masses. There are no pleural effusions. CT/Low Dose CT Lung Screening IMPRESSION: 1. There are no pulmonary nodules or masses. 2. There is calcific vascular disease. 3. Other findings as noted. Lung-RADS Category: 1 S: Negative. Calcific vascular disease. Recommendation: Follow up low-dose chest CT in 12 months. Reading Location: [place] [id number]
== END | disposition home or self-care (01) ==
PROVIDERS: PCP Student in an Organized Health Care Education/Training Program; Referring Provider Nurse Practitioner Family; Visit Provider Nurse Practitioner Family
DX: Z12.2 Encounter for screening for malignant neoplasm of respiratory organs (principal); Z87.891 Personal history of nicotine dependence
CPT/HCPCS: 71271

== ENCOUNTER → 2025-03-13 | Outpatient (CLI) | payer MEDICAID, SELFPAY ==
[2025-03-13 12:25] LABS: BUN 20 mg/dL (4-19)
== END | disposition home or self-care (01) ==
PROVIDERS: PCP Student in an Organized Health Care Education/Training Program; Referring Provider Surgery Vascular Surgery; Visit Provider Surgery Vascular Surgery
DX: I71.43 Infrarenal abdominal aortic aneurysm, without rupture (principal); E11.9 Type 2 diabetes mellitus without complications; I25.2 Old myocardial infarction; Z87.891 Personal history of nicotine dependence; E78.70 Disorder of bile acid and cholesterol metabolism, unspecified; I10 Essential (primary) hypertension; I51.9 Heart disease, unspecified; Z95.828 Presence of other vascular implants and grafts
CPT/HCPCS: 36415; 82565; 84520

== ENCOUNTER → 2025-03-18 | Outpatient (CLI) | payer MEDICAID, SELFPAY | END | disposition home or self-care (01) | LOC: CVS 10:48 | PROVIDERS: PCP Student in an Organized Health Care Education/Training Program; Referring Provider Surgery Vascular Surgery; Visit Provider Surgery Vascular Surgery | DX: I73.9 Peripheral vascular disease, unspecified (principal); Z95.828 Presence of other vascular implants and grafts; I71.43 Infrarenal abdominal aortic aneurysm, without rupture | CPT/HCPCS: 93922 ==

== ENCOUNTER → 2025-03-30 | Outpatient (CLI) | payer MEDICAID, SELFPAY ==
--- OUTSIDE RECORDS SUMMARY | 2025-03-30 20:06 | XMS RPT_ITS | CCD ---
Author Organization [facility] Care Team Providers Care Well Head Pumper Name Role Phone Dr. Graham Priest Primary Care Provider Dr. Graham Priest Referring Provider Roof ARMED GUARD, ARMED GUARD-C Syl Armstrong Attending Provider Dr. William Lucas Attending Provider [phone] Dr. Graham Priest Primary Care Provider Dr. Graham Priest Referring Provider Roof ARMED GUARD, ARMED GUARD-C Syl Armstrong Attending Provider PHYSICIAN, NONE Primary Care Unavailable KYUNG STILES Attending Unavailable PHYSICIAN, NONE Primary Care Physician Unavailab le PHYSICIAN, NONE Primary Care Unavailable KYUNG STILES MD Attending Unavailable Graham Priest MD Primary Care Provider Dr. Graham Priest MD Primary Care Provider Roof ARMED GUARD-C, Syl Armstrong Attending Provider Roof ARMED GUARD-C, Syl Armstrong Referring Provider Roof ARMED GUARD-C, Syl Armstrong Other Provider Gosia LONDON, Dr. Howard Attending Provider Dr. Graham Priest MD Referring Provider [phone] Austin ARMED GUARD-CLynnette Attending Provider Austin ARMED GUARD-CLynnette Referring Provider Austin ARMED GUARD-CLynnette Other Provider Jesus DAVILA, Dr. Vazquez Attending Provider Cem LONDON, Dr. Arthur Primary Care Provider Cem LONDON, Dr. 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 Arthur Primary Care Provider Cem LONDON, Dr. Arthur Referring Provider [phone] Austin BANKS-C, Lynnette Smith Attending Provider KYUNG STILES Admitting Unavailable KYUNG STILES Attending Unavailable SONIA COMBS Admitting Unavailable LATOUF, BUTROS Primary Care Unavailable DINA DOUGHERTY Attending Unavailable KYUNG STILES Consulting Unavailable JENNIFER, ARMENIAN-ARMINDA Attending Unavailable LATOUF, BUTROS Primary Care Unavailable COLLEEN CALDERON Attending Unavailable JENNIFER, ARMENIAN-ARMINDA Referring Unavailable JENNIFER, ARMENIAN-ARMINDA Admitting Unavailable JENNIFER, ARMENIAN-ARMINDA Attending Unavailable FERNANDEZI, MARY Primary Care Unavailable DEMETRI OLIVA Consulting Unavail able JENNIFER, ARMENIAN-ARMINDA Referring Unavailable KALLARISSATTI, MARY Primary Care Unavailable HAYDEN, TYRONE PA%C Admitting Unavailable HAYDEN, TYRONE PA%C Primary Care Unavailable HAYDEN, TYRONE PA%C Attending Unavailable MARIANA COHEN MD Attending Unavailable MARIANA COHEN MD Admitting Unavailable GRAHAM PRIEST MD Consulting Unavailable MARIANA COHEN MD Primary Care Unavailable PROVIDER, UNKNOWN Consulting Unavailable PROVIDER, UNKNOWN Consulting Unavailable PROVIDER, UNKNOWN Consulting Unavailable VI MCNAMARA MD Attending Unava ilable VI MCNAMARA MD Admitting Unava ilable GRAHAM PRIEST MD Consulting Unavailable VI MCNAMARA MD Primary Care Unava ilable PROVIDER, UNKNOWN Consulting Unavailable PROVIDER, UNKNOWN Consulting Unavailable PROVIDER, UNKNOWN Consulting Unavailable GRAHAM PRIEST MD Consulting Unavailable BRANNON RESENDEZ Primary Care Unavailable BRANNON RESENDEZ Admitting Unavailable BRANNON RESENDEZ Attending Unavailable PROVIDER, UNKNOWN Consulting Unavailable PROVIDER, UNKNOWN Consulting Unavailable PROVIDER, UNKNOWN Consulting Unavailable VI MCNAMARA MD Primary Care Unava ilable NAIMA, VI LONDON Attending Unava ilable BUCKTOWARMARTHA, VI LONDON Admitting Unava ilable TYRONE BLAKE PAC Consulting Unavailable PROVIDER, UNKNOWN Consulting Unavailable PROVIDER, UNKNOWN Consulting Unavailable PROVIDER, UNKNOWN Consulting Unavailable VI MCNAMARA MD Primary Care Unava ilable SHAVONNETOSERGIO, VI LONDON Attending Unava ilable SHAVONNETOSERGIO, VI LONDON Admitting Unava ilable GRAHAM PRIEST MD Consulting Unavailable PROVIDER, UNKNOWN Consulting Unavailable PROVIDER, UNKNOWN Consulting Unavailable PROVIDER, UNKNOWN Consulting Unavailable GRAHAM PRIEST MD Primary Care Unavailable GRAHAM PRIEST MD Consulting Unavailable GRAHAM PRIEST MD Admitting Unavailable GRAHAM PRIEST MD Attending Unavailable PROVIDER, UNKNOWN Consulting Unavailable PROVIDER, UNKNOWN Consulting Unavailable PROVIDER, UNKNOWN Consulting Unavailable GRAHAM PRIEST MD Admitting Unavailable GRAHAM PRIEST MD Primary Care Unavailable GRAHAM PRIEST MD Consulting Unavailable GRAHAM PRIEST MD Attending Unavailable PROVIDER, UNKNOWN Consulting Unavailable PROVIDER, UNKNOWN Consulting Unavailable PROVIDER, UNKNOWN Consulting Unavailable GRAHAM PRIEST MD Primary Care Unavailable GRAHAM PRIEST MD Attending Unavailable GRAHAM PRIEST MD Admitting Unavailable GRAHAM PRIEST MD Consulting Unavailable PROVIDER, UNKNOWN Consulting Unavailable PROVIDER, UNKNOWN Consulting Unavailable PROVIDER, UNKNOWN Consulting Unavailable GRAHAM PRIEST MD Primary Care Unavailable GRAHAM PRIEST MD Admitting Unavailable GRAHAM PRIEST MD Attending Unavailable GRAHAM PRIEST MD Consulting Unavailable PROVIDER, UNKNOWN Consulting Unavailable PROVIDER, UNKNOWN Consulting Unavailable PROVIDER, UNKNOWN Consulting Unavailable MARY LANDEROS MD Admitting Unavailable MARY LANDEROS MD Attending Unavailable MARY LANDEROS MD Primary Care Unavailable VI MCNAMARA MD Primary Care Unaramakrishna ilable NAIMA, VI LONDON Attending Unava ilable NAIMA, VI LONDON Admitting Unava ilable Lynnette Avila Referring Unavailable Lynnette Avila Attending Unavailable Mary Landeros Primary Care Unavailable Syl Agarwal NP Attending Unavailable Latouf, Butros Referring Unavailable Latouf, Butros Primary Care Unavailable RufenerLynnette M Referring Unavailable RuariannaerLynnette M Consulting Unavailable Latouf, Butros Primary Care Unavailable George Lee Attending Unavailable Aisha Vo Consulting Unavailable Aisha Vo Attending Unavailable Latouf, Butros Primary Care Unavailable Aisha Vo Admitting Unavailable Yared ARMED GUARD, Yenni Attending Unavailable Yared ARMED GUARD, Yenni Referring Unavailable Latouf, Butros Primary Care Unavailable Lea ARMED GUARD, Syl Armstrong Attending Unavailable Lea ARMED GUARD, Syl H Referring Unavailable Latouf, Butros Primary Care Unavailable StilesKyung A Referring Unavailable Kalisetti, Mary Primary Care Unavailable StilesKyung johns A Attending Unavailable RuariannaerLynnette M Attending Unavailable Latouf, Butros Referring Unavailable Latouf, Butros Primary Care Unavailable RuLynnette groves M Attending Unavailable Latouf, Butros Primary Care Unavailable Latouf, Butros Referring Unavailable Fernando Araya Attending Unavailable Fernando Araya Consulting Unavailable Latouf, Butros Primary Care Unavailable Yared BANKS, Yenni Referring Unavailable Lee Elise Attending Unavailable Rufener Lynnette M Referring Unavailable Latouf, Butros Primary Care Unavailable George Lee Attending Unavailable Roof ARMED GUARD, Syl Armstrong Consulting Unavailable Lea ARMED GUARD, Syl H Referring Unavailable Latouf, Butros Primary Care Unavailable Lee Elise Attending Unavailable Lynnette Avila Attending Unavailable Latouf, Butros Referring Unavailable Latouf, Butros Primary Care Unavailable Latouf, Butros Referring Unavailable Yared ARMED GUARD, Yenni Attending Unavailable Latouf, Butros Primary Care Unavailable Lynnette Avila M Attending Unavailable Aisha Vo Consulting Unavailable Latouf, Butros Primary Care Unavailable Fernando Araya Attending Unavailable Aisha Vo Admitting Unavailable Roof ARMED GUARD, Syl Armstrong Attending Unavailable Latouf, Butros Referring Unavailable Latouf, Butros Primary Care Unavailable Roof ARMED GUARD, Syl H Attending Unavailable Latouf, Butros Referring Unavailable Latouf, Butros Primary Care Unavailable RufenerLaloen M Referring Unavailable RufenerLaloen M Attending Unavailable Latouf, Butros Primary Care Unavailable Yared ARMED GUARD, Yenni Attending Unavailable Yared ARMED GUARD, Yenni Referring Unavailable Latouf, Butros Primary Care Unavailable Lynnette Avila M Attending Unavailable Latouf, Butros Referring Unavailable Kalisetti, Mary Primary Care Unavailable Stilse, Kyung A Attending Unavailable Kyung Stiles Referring Unavailable Mary Landeros Primary Care Unavailable Kyung Stiles Attending Unavailable Kyung Stiles Referring Unavailable Mary Landeros Primary Care Unavailable Lynnette Avila Referring Unavailable Lynnette Avila Attending Unavailable Mary Landeros Primary Care Unavailable Cem LONDON, Dr. Arthur Primary Care Physician Dr. Graham Priest MD Referring Provider [phone] Austin BANKS-CLynnette Attending Physician Austin BANKS-CLynnette Referring Provider Dr. Mary Landeros MD Primary Care Physician Dr. Kyung Stiles MD Attending Physician Go LONDON, Dr. Kyung Sandoval Referring Provider Allergies Allergy Classification Reported Allergen(s) Allergy Type Date of Onset Reaction(s) Facility (16 sources) Codeine; Translations: [CODEINE] Drug Allergy 10-09-2006 Other [facility] (16 sources) rosuvastatin; Translations: [ROSUVASTATIN] Drug Allergy 04-08-2022 Intolerance [facility] (7 sources) atorvastatin; Translations: [ATORVASTATIN] Drug Allergy 02-23-2024 Intolerance [facility] (1 source) Codeine Drug Allergy [facility] (1 source) Codeine Drug Allergy 03-04-2025 [facility] (1 source) rosuvastatin Drug Allergy 03-04-2025 [facility] Medications Current Medications Medication Drug Class(es) Dates Sig (Normalized) Sig (Original) acetaminophen 325 mg oral tablet (12 sources) Start: 10-22-2024 take 1 tablet by mouth every six hours as needed for pain Start: 09-25-2018 End: 10-22-2024 take 2 tablets by mouth every six hours as needed for pain Acetaminophen 325 MG tablet Discontinued 650 mg PO EVERY 6 HOURS NEEDED as needed for Mild Pain (0-2/10) 0 September 24, 2018 11:00pm October 22, 2024 8:30am Start: 09-25-2018 take 650 mg by mouth every six hours as needed Acetaminophen Active 650 MG PO EVERY 6 HOURS NEEDED September 25, 2018 12:00am [id number] 200 actuat albuterol 0.09 mg/actuat metered dose inhaler (20 sources) beta2-Adrenergic Agonist Start: 10-07-2024 take 1 puff(s) by inhalation every four hours as needed for wheezing albuterol HFA (PROVENTIL HFA, VENTOLIN HFA) 90 mcg/actuation inhaler Inhale 1 puff as instructed every 4 hours as needed for wheezing/shortness of breath. 10/07/2024 Active Start: 04-25-2024 take 0.63 mg by inha lation three times daily as needed Start: 02-23-2022 Start: 02-23-2022 take 1 puff(s) by in halation every four hours as needed Albuterol Sulfate (Ventolin Hfa) 90 mcg/actuation HFA aerosol inhaler Active 2 PUFF INHALATION EVERY 4 HOURS NEEDED 8.5 February 23, 2022 12:00am End: 10-30-2024 take 2 puff(s) by inhalation every four hours as needed ALBUTEROL INHALATION Inhale 2 Puffs as instructed every 4 hours as needed. 10/30/2024 Discontinued take 2 puff(s) by in halation every four hours as needed ALBUTEROL INHALATION Inhale 2 Puffs as instructed every 4 hours as needed. Active 24 hr alfuzosin hydrochloride 10 mg extended release oral tablet (11 sources) alpha-Adrenergic Mariusz Start: 02-13-2023 take 1 tablet b y mouth once daily amLODIPine 10 mg oral tablet (10 sources) Dihydropyridine Calcium Channel Mariusz Start: 04-16-2024 take 1 tablet by mouth once daily ascorbic acid 500 mg extended release oral capsule (15 sources) Vitamin C Start: 11-13-2019 take 1 capsule by mouth once daily take 2 tablets by mouth once carmencita ly ascorbic acid, vitamin C, (VITAMIN C) 500 mg tablet Take 1,000 mg by mouth once daily. Last dose 01/01/25 Active aspirin 81 mg delayed release oral tablet (20 sources) Platelet Aggregation Inhibitor, Nonsteroidal Anti-inflammatory Drug Start: 09-25-2018 take 1 tablet by mouth once daily Start: 10-06-2014 End: 09-25-2018 take 1 tablet by mouth once daily Aspirin 325 MG tablet Discontinued 325 mg PO DAILY@0800 October 05, 2014 11:00pm September 25, 2018 10:22am atorvastatin 80 mg oral tablet (20 sources) HMG-CoA Reductase Inhibitor Start: 05-16-2019 take 1 tablet by mouth once daily Start: 09-25-2018 End: 10-11-2018 take 1 tablet by mouth at bedtime Atorvastatin 80 MG tablet Discontinued 80 mg PO AT BEDTIME 30 0 September 24, 2018 11:00pm October 11, 2018 9:53am cholecalciferol 0.125 mg oral capsule (10 sources) Vitamin D Start: 10-07-2024 take 1 capsule by mouth once daily Cholecalciferol, Vitamin D3, 125 mcg (5,000 unit) cap Take 1 capsule by mouth once daily. Takes as a prescription 10/07/2024 Active Start: 12-07-2023 take 1 capsule by mouth once d aily 0.5 ml dulaglutide 1.5 mg/ml auto-injector (8 sources) GLP-1 Receptor Agonist Start: 10-20-2024 Fluticasone Propion-Salmeter ol (14 sources) Corticosteroid, beta2-Adrenergic Agonist Start: 02-03-2025 Start: 09-24-2024 take 1 puff(s) by in halation twice daily fluticasone-salmeterol (ADVAIR) 500-50 mcg/dose dsdv Inhale 1 puff as instructed two times a day. 09/24/2024 Active Start: 09-24-2024 End: 02-03-2025 Fluticasone Propion-Salmeter ol (Wixela Inhub) 500-50 mcg/dose blister with device Discontinued 1 NMA INHALATION TWICE A DAY 60 September 23, 2024 11:00pm February 03, 2025 2:46pm Start: 09-24-2024 Fluticasone Pr opion-Salmeterol (Wixela Inhub) 500-50 mcg/dose blister with device Active 1 NMA INHALATION TWICE A DAY 60 September 24, 2024 12:00am Start: 09-24-2024 Fluticasone Pr opion-Salmeterol (Wixela Inhub) 500-50 mcg/dose blister with device Active 1 NMA INHALATION TWICE A DAY 60 September 24, 2024 12:00am Start: 09-16-2024 End: 09-24-2024 Fluticasone Propion-Salmeter ol (Wixela Inhub) 250-50 mcg/dose blister with device Discontinued 1 NMA INHALATION TWICE A DAY 60 September 15, 2024 11:00pm September 24, 2024 1:07pm furosemide 20 mg oral tablet (20 sources) Loop Diuretic Start: 04-16-2024 take 1 tablet by andreas th once daily Start: 03-27-2024 End: 04-14-2024 take 1 tablet by mouth once daily in the morning Furosemide (Lasix) 40 mg tablet Discontinued 40 mg PO EVERY MORNING 3 March 27, 2024 12:00am April 14, 2024 2:15pm Start: 02-27-2023 End: 11-28-2023 Furosemide (Lasix) 40 mg tab let Discontinued 40 mg PO .PRN as needed for edema and SOB 20 February 26, 2023 11:00pm November 28, 2023 9:55pm 12 hr guaiFENesin 1200 mg extended release oral tablet (5 sources) Start: 04-16-2024 take 1 tablet by mouth twice daily, then take 1 tablet by mouth every twelve hours 24 hr isosorbide mononitrate 30 mg extended release oral tablet (11 sources) Nitrate Vasodilator Start: 04-25-2024 End: 02-05-2025 take 1 tablet by mouth once daily, then take 1 tablet by mouth every twenty-four hours iv contrast (will be provided with radiology test) (1 source) Start: 11-07-2024 End: 11-08-2024 inject 1 dose intravenously once iv contrast (will be provided with radiology test) CT Pulm Vein - No IV access, insert saline lock prior to the sedation, infusion, injection for imaging exam. Discontinue saline lock post exam. If Pt. has a central line or IVAD, may access for administration according to line specific nursing protocol. Once exam is complete flush line and de-access according to line specific nursing protocol in the CT contrast administration guidelines link. 1 each 11/07/2024 11/08/2024 Active Magnesium (11 sources) Start: 03-07-2024 take 2 tablets by mouth once daily Start: 03-07-2024 take 2 tablets by mo uth once daily Magnesium 250 mg tablet Active 500 mg PO daily March 07, 2024 12:00am supplement Start: 03-07-2024 take 2 tablets by [facility] once daily Magnesium 250 mg tablet Active 500 mg PO daily March 07, 2024 12:00am take 2 tablets by [facility] once daily Magnesium 250 mg tab Take 500 mg by mouth once daily. Active metoprolol tartrate 50 mg oral tablet (11 sources) beta-Adrenergic Mariusz Start: 02-15-2023 take 1 tablet by mouth twice daily omega-3s/dha/epa/f osmel oil/D3 (VITAMIN-D + OMEGA-3 ORAL) (6 sources) take 125 mg by mouth once daily omega-3s/dha/ epa/fish oil/D3 (VITAMIN-D + OMEGA-3 ORAL) Take 125 mg by mouth once daily. LD 01/01/25 Active take 125 mg by mouth once daily omega-3s/dha/epa/fish oil/D3 (VITAMIN-D + OMEGA-3 ORAL) Take 125 mg by mouth once daily. 02/18/24 Active OXYGEN, HOME THERAPY, (6 sources) OXYGEN, HOME THERAPY, Inhale 2 L/min as instructed daily at bedtime. WITH CPAP Active pantoprazole 40 mg delayed release oral tablet (15 sources) Proton Pump Inhibitor Start: 03-31-20 take 1 tablet by mouth once daily sertraline 50 mg oral tablet (10 sources) Serotonin Reuptake Inhibitor Start: 04-25-20 take 1 tablet by mouth once daily 10 actuat tiotropium 0.0025 mg/actuat inhalation spray (9 sources) Anticholinergic Start: 10-25-19 take 2 puff(s) by inhalation once daily SPIRIVA RESPIMAT 2.5 mcg/actuation inhaler Inhale 2 puffs as instructed once daily. 10/24/2024 Active Start: 09-16-2024 take 2.5 ug by inhal ation once daily Start: 09-16-2024 take 2.5 ug by inhal ation once daily Tiotropium [place] (Spiriva Respimat) 2.5 mcg/actuation mist Active 2 NMA INHALATION daily 4 September 16, 2024 12:00am Start: 09-16-2024 take 2.5 ug by inhal ation once daily Tiotropium [place] (Spiriva Respimat) 2.5 mcg/actuation mist Active 2 NMA INHALATION daily September 16, 2024 12:00am ubidecarenone 200 mg oral ca psule (20 sources) Start: 10-11-2018 Start: 10-11-2018 End: 03-07-2024 Coenzyme Q10 (Co Q-10) 200 m g capsule Discontinued 400 mg PO DAILY October 10, 2018 11:00pm March 07, 2024 8:41am see pcp vitamin b6 100 mg oral table t (17 sources) Start: 04-25-2024 take 1 tablet by mouth once da rosana Start: 11-13-2019 End: 04-25-2024 take 1 capsule by mouth once daily Pyridoxine (Vitamin B6) (Vitamin B-6) 50 mg capsule Discontinued 50 mg PO DAILY November 12, 2019 11:00pm April 25, 2024 3:55pm vitamin Completed/Discontinued Medications Medication Drug Class(es) Dates Sig (Normalized) Sig (Original) acetaminophen 325 mg / HYDROcodone bitartrate 5 mg oral tablet (5 sources) Opioid Agonist Start: 02-23-2024 End: 03-07-2024 Hydrocodone-Acetam inophen 5-325 mg tablet Discontinued 1 {tbl} PO EVERY 8 HOURS NEEDED February 22, 2024 11:00pm March 07, 2024 8:38am apixaban 5 mg oral tablet (20 sources) Factor Xa Inhibitor Start: 08-07-2024 take [id number] tablet by mouth twice daily in the morning ELIQUIS 5 mg tab(s) Take 5 mg by mouth two times a day. Last dose 01/04 am dose 08/07/2024 Active Start: 09-26-2022 End: 10-20-2024 take 1 tablet by mouth twice daily Apixaban (Eliquis) 5 mg tablet Discontinued 5 mg PO TWICE A DAY 180 3 October 08, 2024 9:04am October 20, 2024 9:05am blood thinner benzonatate 200 mg oral capsule (9 sources) Non-narcotic Antitussive Start: 02-23-2022 End: 03-31-2022 take 1 capsule by mouth three times daily as needed for cough Benzonatate 200 mg capsule Discontinued 200 mg PO THREE TIMES A DAY as needed for cough 21 7 0 February 22, 2022 11:00pm March 31, 2022 10:31am Calcium-Magnesium- Zinc (5 sources) Start: 02-13-2023 End: 04-14-2024 Calcium-Magnesium- Zinc 333-133-5 mg tablet Discontinued 1 {tbl} PO DAILY February 12, 2023 11:00pm April 14, 2024 2:14pm see pcp Start: 02-13-2023 End: 04-14-2024 Wtxfdev-Vbmmeeqix-Oxhv 333-1 33-5 mg tablet Discontinued 1 {tbl} PO DAILY February 13, 2023 12:00am April 14, 2024 3:14pm see pcp Start: 02-13-2023 End: 04-14-2024 Mclyyof-Wowankwsr-Fajz 333-1 33-5 mg tablet Discontinued 1 {tbl} PO DAILY February 13, 2023 12:00am April 14, 2024 3:14pm carvedilol 6.25 mg oral tablet (20 sources) alpha-Adrenergic Mariusz, beta-Adrenergic Mariusz Start: 03-18-2021 End: 10-12-2022 take 2 tablets by mouth twice daily Carvedilol 6.25 mg tablet Discontinued 12.5 mg PO TWICE A DAY March 18, 2021 9:01am October 12, 2022 8:11am Start: 03-18-2021 End: 10-12-2022 take 12.5 mg by mouth twice daily Carvedilol Discontinued 12.5 MG PO TWICE A DAY March 18, 2021 10:01am October 12, 2022 9:11am Start: 09-25-2018 End: 03-18-2021 take 1 tablet by mouth twice daily Carvedilol 6.25 mg tablet Discontinued 6.25 mg PO TWICE A DAY 60 September 20, 2020 9:24am March 18, 2021 9:03am cefdinir 300 mg oral capsule (5 sources) Cephalosporin Antibacterial Start: 04-16-2024 End: 04-25-2024 take 1 capsule by mouth twice daily Cefdinir 300 mg capsule Discontinued 300 mg PO TWICE A DAY 10 April 16, 2024 12:00am April 25, 2024 3:56pm clopidogrel 75 mg oral tablet (20 sources) [id number] Platelet Inhibitor Start: 09-25-2018 End: 09-04-2022 take 1 tablet by mouth once daily Clopidogrel 75 mg tablet Discontinued 75 mg PO DAILY 90 3 September 09, 2021 12:53pm September 04, 2022 2:25pm doxycycline hyclate 100 mg oral capsule (5 sources) Tetracycline-class Drug Start: 04-14-2024 End: 04-25-2024 take 1 capsule by mouth twice daily Doxycycline Hyclate 100 mg capsule Discontinued 100 mg PO TWICE A DAY 14 7 0 April 14, 2024 12:00am April 25, 2024 3:56pm Fluticasone-Umecli din-Vilanter (5 sources) Anticholinergic, Corticosteroid, beta2-Adrenergic Agonist Start: 08-05-2024 End: 09-16-2024 Fluticasone-Umecli din-Vilanter (Trelegy Ellipta) 100-62.5-25 mcg blister with device Discontinued 1 NMA INHALATION Q24H 60 August 04, 2024 11:00pm September 16, 2024 7:15am Chronic obstructive pulmonary disease Chronic obstructive pulmonary disease, unspecified Start: 08-05-2024 End: 09-16-2024 Xmnljnkklvc-Agxfhezan-Qmkiox er (Trelegy Ellipta) 100-62.5-25 mcg blister with device Discontinued 1 NMA INHALATION Q24H 60 August 05, 2024 12:00am September 16, 2024 8:15am Chronic obstructive pulmonary disease Chronic obstructive pulmonary disease, unspecified Start: 08-05-2024 End: 09-16-2024 Bmqsijzztdh-Uhmumgxty-Xyspsj er (Trelegy Ellipta) 100-62.5-25 mcg blister with device Discontinued 1 NMA INHALATION Q24H 60 August 05, 2024 12:00am September 16, 2024 8:15am Start: 08-05-2024 Fluticasone-Um eclidin-Vilanter (Trelegy Ellipta) 100-62.5-25 mcg blister with device Active 1 NMA INHALATION Q24H August 05, 2024 12:00am losartan potassium 25 mg oral tablet (20 sources) Angiotensin 2 Receptor Mariusz Start: 11-13-2019 End: 11-22-2021 take 1 tablet by mouth twice daily Losartan 25 mg tablet Discontinued 25 mg PO TWICE A DAY 180 3 November 18, 2020 8:49am November 22, 2021 2:25pm Start: 09-25-2018 End: 11-13-2019 take 1 tablet by mouth once daily Losartan 25 mg tablet Discontinued 25 mg PO DAILY 90 3 October 20, 2019 1:51pm November 13, 2019 8:20am magnesium oxide 250 mg oral tablet (9 sources) Start: 10-11-2018 End: 02-13-2023 take 1 tablet by mouth once daily Magnesium Oxide 250 mg magnesium tablet Discontinued 250 mg PO DAILY October 10, 2018 11:00pm February 13, 2023 1:29am 24 hr metFORMIN hydrochloride 500 mg extended release oral tablet (20 sources) Biguanide Start: 10-11-2018 End: 06-13-2024 Metformin 500 mg tablet extended release 24 hr Discontinued 1000 mg PO DAILY March 07, 2024 8:38am June 13, 2024 2:51pm diabetes Start: 10-11-2018 take 1000 mg by mout h once daily Metformin Active 1000 MG PO DAILY October 11, 2018 10:55am Start: 09-23-2018 End: 10-11-2018 take 1 tablet by mouth once daily Metformin 500 MG tablet Discontinued 500 mg PO DAILY September 22, 2018 11:00pm October 11, 2018 9:55am End: 10-30-2024 take 2 tablets by mouth once daily at dinner metFORMIN (GLUCOPHAGE) 500 mg tablet Take 1,000 mg by mouth daily with dinner. 10/30/2024 Discontinued pravastatin sodium 80 mg oral tablet (18 sources) HMG-CoA Reductase Inhibitor Start: 10-11-2018 End: 05-16-2019 take 1 tablet by mouth at bedtime Pravastatin 80 mg tablet Discontinued 80 mg PO AT BEDTIME October 10, 2018 11:00pm May 16, 2019 10:15am Start: 09-23-2018 End: 09-25-2018 Pravastatin 40 MG tablet Dis continued 1 {tbl} PO DAILY September 22, 2018 11:00pm September 25, 2018 10:23am predniSONE 20 mg oral tablet (14 sources) Start: 04-16-2024 End: 04-25-2024 take 1 tablet by mouth twice daily Prednisone 20 mg tablet Discontinued 20 mg PO TWICE A DAY 10 April 16, 2024 12:00am April 25, 2024 3:57pm Start: 02-23-2022 End: 03-31-2022 take 2 tablets by mouth once daily Prednisone 20 mg tablet Discontinued 40 mg PO DAILY 10 5 February 12th, 2022 11:00pm March 31, 2022 10:32am Start: 02-23-2022 End: 03-31-2022 take 40 mg by mouth once daily Prednisone Discontinued 40 MG PO DAILY 10 February 23, 2022 12:00am March 31, 2022 11:32am pyridoxine (3 sources) Start: 11-13-2019 End: 04-25-2024 take 1 capsule by mouth once daily Pyridoxine (Vitamin B6) (Vitamin B-6) 50 mg capsule Discontinued 50 mg PO DAILY November 13, 2019 12:00am April 25, 2024 4:55pm 0.25 mg, 0.5 mg dose 1.5 ml semaglutide 1.34 mg/ml pen injector (11 sources) Start: 01-24-2022 End: 10-30-2024 Semaglutide (Ozempic) 0.25 mg or 0.5 mg(2 mg/1.5 mL) pen injector Discontinued 0.25 mg SC EVERY WEEK January 23, 2022 11:00pm February 23, 2024 8:51am see pcp Semaglutide (5 sources) Start: 02-23-2024 End: 10-22-2024 Semaglutide (Ozempic) 0.25 mg or 0.5 mg (2 mg/3 mL) pen injector Discontinued 0.25 mg SC EVERY WEEK February 22, 2024 11:00pm October 22, 2024 8:27am diabetes Start: 02-23-2024 End: 10-22-2024 Semaglutide (Ozempic) 0.25 m g or 0.5 mg (2 mg/3 mL) pen injector Discontinued 0.25 mg SC EVERY WEEK February 23, 2024 12:00am October 22, 2024 9:27am diabetes Start: 02-23-2024 End: 10-22-2024 Semaglutide (Ozempic) 0.25 m g or 0.5 mg (2 mg/3 mL) pen injector Discontinued 0.25 mg SC EVERY WEEK February 23, 2024 12:00am October 22, 2024 9:27am Start: 02-23-2024 Semaglutide (O zempic) 0.25 mg or 0.5 mg (2 mg/3 mL) pen injector Active 0.25 mg SC EVERY WEEK February 23, 2024 12:00am Turmeric Root Extract (9 sources) Start: 06-04-2020 End: 03-18-2021 take 1 capsule by mouth once daily Turmeric Root Extract 500 mg capsule Discontinued 500 mg PO DAILY June 04, 2020 12:00am March 18, 2021 9:02am Start: 06-04-2020 End: 03-18-2021 take 1 capsule by mouth once daily Turmeric Root Extract 500 mg capsule Discontinued 500 mg PO DAILY June 04, 2020 1:00am March 18, 2021 10:02am Start: 06-04-2020 End: 03-18-2021 take 500 mg by mouth once daily Turmeric Root Extract Discontinued 500 MG PO DAILY June 04, 2020 1:00am March 18, 2021 10:02am Start: 06-04-2020 End: 03-18-2021 take 500 mg by mouth once daily Turmeric Root Extract Discontinued 500 MG PO DAILY June 04, 2020 12:00am March 18, 2021 9:02am Problems Active Problems Problem Classification Problem Date Documented Date Episodic/Chronic Acute and unspecified renal failure (5 sources) Acute renal failure syndrome; Translations: [Acute kidney failure, unspecified] 04-16-2024 Episodic Acute myocardial infarction (9 sources) Myocardial infarction; Translations: [Non-ST elevation (NSTEMI) myocardial infarction] 10-02-2018 Chronic Administrative/social admission (1 source) First encounter by subject; Translations: [Persons encountering health services in other specified circumstances] 10-30-2024 Episodic Aortic; peripheral; and visceral artery aneurysms (20 sources) Abdominal aortic aneurysm; Translations: [Abdominal aortic aneurysm (AAA)] Onset: 02-19-2024 03-31-2022 Chronic Cardiac dysrhythmias (20 sources) Paroxysmal atrial fibrillation; Translations: [Paroxysmal atrial fibrillation] Onset: 04-21-2024 Chronic Comment on above: DCCV on 09/24/2022 in ER, 02/14/2023; Cardiac dysrhythmias (9 sources) Palpitations; Translations: [Palpitations] 04-16-2022 Episodic Chronic kidney disease (3 sources) Chronic kidney disease; Translations: [Chronic kidney disease, stage 3a] Onset: 02-23-2025 Chronic obstructive pulmonary disease and bronchiectasis (20 sources) Chronic obstructive lung disease; Translations: [Chronic obstructive pulmonary disease, unspecified] Onset: 04-16-2024 08-05-2024 Chronic Comment on above: FEV1 is 66% FEV1 is 66%, asthma COPD overlap syndrome Coronary atherosclerosis and other heart disease (20 sources) History of myocardial infarction; Translations: [Old myocardial infarction] Onset: 09-24-2018 Chronic Comment on above: Successful PTCA/EAGLE mid LCX with a 3.0 x 20 Promus Synergy; Successful PCI with PTCA to the ostium of OM#2 with a 2.0 x 12 balloon; 50%-->30%, no dissection. 09/24/18 per [facility]N @ [facility] Deficiency and other anemia (1 source) Anemia in chronic kidney disease; Translations: [Anemia in chronic kidney disease] Onset: 02-23-2025 Chronic Diabetes mellitus with complications (3 sources) Type 2 diabetes mellitus with other specified complication; Translations: [Type 2 diabetes mellitus with other specified complication] Onset: 04-21-2024 Chronic Diabetes mellitus without complication (17 sources) Type 2 diabetes mellitus; Translations: [Type 2 diabetes mellitus without complications] Onset: 02-25-2025 02-23-2022 Chronic Disorders of lipid metabolism (20 sources) Hyperlipidemia; Translations: [Hyperlipidemia, unspecified] Onset: 10-13-2024 Chronic Essential hypertension (20 sources) Essential hypertension; Translations: [Essential (primary) hypertension] Onset: 11-28-2024 03-28-2022 Chronic Heart valve disorders (12 sources) Heart murmur; Translations: [Cardiac murmur, unspecified] Episodic Nutritional deficiencies (1 source) Vitamin D deficiency, unspecified; Translations: [Vitamin D deficiency, unspecified] Onset: 10-13-2024 Chronic Other aftercare (6 sources) Long-term current use of anticoagulant; Translations: [shelter (current) use of anticoagulants] 12-07-2023 Episodic Other circulatory disease (1 source) Presence of other vascular implants and grafts; Translations: [Presence of other vascular implants and grafts] Onset: 03-19-2025 Chronic Other circulatory disease (9 sources) H/O: atrial fibrillation; Translations: [Personal history of other diseases of the circulatory system] 04-16-2022 Episodic Other circulatory disease (12 sources) History of cardiac arrhythmia; Translations: [Personal history of other diseases of the circulatory system] 09-24-2018 Episodic Other circulatory disease (1 source) History of supraventricular tachycardia; Translations: [Personal history of other diseases of the circulatory system] 09-24-2018 Episodic Other endocrine disorders (1 source) Secondary hyperparathyroidism, not elsewhere classified; Translations: [Secondary hyperparathyroidism, not elsewhere classified] Onset: 02-23-2025 Chronic Other liver diseases (8 sources) Raised cardiac enzyme or marker; Translations: [Abnormal levels of other serum enzymes] 09-23-2018 Episodic Other liver diseases (1 source) Abnormal levels of other serum enzymes; Translations: [Elevation of cardiac enzymes] 09-23-2018 Episodic Other lower respiratory disease (9 sources) Dyspnea; Translations: [Dyspnea, unspecified] 03-03-2022 Episodic Other lower respiratory disease (9 sources) Dyspnea on exertion; Translations: [Other forms of dyspnea] 03-27-2024 Episodic Other lower respiratory disease (4 sources) Cough; Translations: [Cough] 09-24-2024 Episodic Other nutritional; endocrine; and metabolic disorders (9 sources) Body mass index 30+ - obesity; Translations: [Obesity, unspecified] 09-24-2018 Chronic Other nutritional; endocrine; and metabolic disorders (6 sources) Obese class I; Translations: [Obesity, Class I, BMI 30-34.9] Onset: 02-18-2024 02-18-2024 Chronic Other nutritional; endocrine; and metabolic disorders (7 sources) Body mass index 40+ - severely obese; Translations: [Morbid (severe) obesity due to excess calories] Onset: 02-20-2024 02-20-2024 Chronic Other nutritional; endocrine; and metabolic disorders (6 sources) Obese class II; Translations: [Obesity, Class II, BMI 35-39.9] Onset: 02-23-2024 02-23-2024 Chronic Other screening for suspected conditions (not mental disorders or infectious disease) (12 sources) CT of abdomen abnormal; Translations: [Abnormal findings on diagnostic imaging of other abdominal regions, including retroperitoneum] Onset: 04-21-2024 03-02-2024 Episodic Other upper respiratory disease (9 sources) Acute bronchospasm; Translations: [Acute bronchospasm] 10-21-2022 Episodic Peripheral and visceral atherosclerosis (2 sources) Peripheral vascular disease, unspecified; Translations: [Peripheral vascular disease, unspecified] Onset: 03-19-2025 Chronic Residual codes; unclassified (20 sources) Obstructive sleep apnea syndrome; Translations: [Obstructive sleep apnea (adult) (pediatric)] Onset: 02-19-2024 02-23-2022 Chronic Residual codes; unclassified (1 source) Obstructive sleep apnea (adult) (pediatric); Translations: [Obstructive sleep apnea (adult) (pediatric)] Onset: 03-16-2025 Chronic Residual codes; unclassified (9 sources) Tobacco user; Translations: [Tobacco use] 10-02-2018 Episodic Spondylosis; intervertebral disc disorders; other back problems (12 sources) Backache; Translations: [Dorsalgia, unspecified] Onset: 02-23-2024 02-23-2024 Episodic Substance-related disorders (15 sources) Cigarette smoker ; Translations: [Nicotine dependence, cigarettes, uncomplicated] Onset: 08-05-2024 08-05-2024 Chronic Unclassified (2 sources) Z86.79 - Personal history of other diseases of the circulatory system,I48.0 - Paroxysmal atrial fibrillation Unclassified (3 sources) Autogenerated Problem Onset: 12-21-2024 12-21-2024 Unclassified (1 source) Aneurysm of abdominal vessel (HCC); Translations: [Aneurysm of abdominal vessel (HCC)] Onset: 02-19-2024 Unclassified (1 source) Supraventricular tachycardia, unspecified; Translations: [Supraventricular tachycardia, unspecified] Onset: 04-21-2024 Unclassified (1 source) Infrarenal abdominal aortic aneurysm, without rupture; Translations: [Infrarenal abdominal aortic aneurysm, without rupture] Onset: 03-19-2025 Unclassified (1 source) Abdominal aortic aneurysm, without rupture, unspecified; Translations: [Abdominal aortic aneurysm, without rupture, unspecified] Onset: 11-28-2024 Unclassified (1 source) Cough, unspecified; Translations: [Cough, unspecified] Onset: 09-24-2024 Past or Other Problems Problem Classification Problem Date Documented Da te Episodic/Chronic Coronary atherosclerosis and other heart disease (13 sources) Stented coronary artery; Translations: [Presence of coronary angioplasty implant and graft] Onset: 09-24-2018 Episodic Comment on above: Successful PTCA/EAGLE mid LCX with a 3.0 x 20 Promus Synergy; Successful PCI with PTCA to the ostium of OM#2 with a 2.0 x 12 balloon; 50%-->30%, no dissection. 09/24/18 per DJN @ [facility] Nonspecific chest pain (20 sources) Chest pain; Translations: [Chest pain, unspecified] Onset: 2024 09-25-2022 Episodic Other circulatory disease (1 source) Personal history of other diseases of the circulatory system; Translations: [Personal history of other diseases of the circulatory system] Onset: 11-28-2024 Episodic Other connective tissue disease (6 sources) Calcaneal spur; Translations: [Calcaneal spur, unspecified foot] Onset: 10-04-2006 11-22-2023 Episodic Other connective tissue disease (6 sources) Plantar fascial fibromatosis; Translations: [Plantar fascial fibromatosis] Onset: 10-09-2006 11-22-2023 Episodic Other diseases of kidney and ureters (6 sources) Renal artery occlusion; Translations: [Ischemia and infarction of kidney] Onset: 02-24-2024 02-24-2024 Episodic Other diseases of kidney and ureters (1 source) Ischemia and infarction of kidney; Translations: [Renal artery occlusion (HCC)] Onset: 02-23-2024 Episodic Other lower respiratory disease (1 source) Other forms of dyspnea; Translations: [Other forms of dyspnea] Onset: 11-28-2024 Episodic Other lower respiratory disease (1 source) Hypoxemia; Translations: [Hypoxemia] Onset: 06-24-2024 Episodic Results Test Name Value Interpretation Reference Range Facility [facility] 03-13-2025 Urea nitrogen [Mass/Vol] 20 mg/dL High 08-30 [facility] Comment on above: Performed By: #### L 501.1000, L501.1105 #### [facility] [place], [address] Glomerular filtration rate ( GFR) estimation/1.73 sq m using serum, plasma, or whole bOrdered By: Kyung Stiles on 03-13-2025 GFR/1.73 sq M.predicted among non-blacks MDRD (S/P/Bld) [Vol rate/Area] 55 mL/min/{1.73_m2} Low >60 [facility] Comment on above: mL/min/1.73m2 CKD-EP I Creatinine Equation (2020) Serum Creatinine AND GFRon 1 Creatinine [Mass/Vol] 1.42 mg/dL High 0.70-1.20 [facility] Comment on above: Performed By: #### L 501.1000, L501.1105 #### [facility] [address] [place], [address] GFR/1.73 sq M.predicted among non-blacks MDRD (S/P/Bld) [Vol rate/Area] 55 mL/min/{1.73_m2} Low >60 [facility] Comment on above: Result Comment: mL/m in/1.73m2 CKD-EPI Creatinine Equation (2020) Performed By: #### L 501.1000, L501.1105 #### [facility] [address] [place], [address] Serum creatinine measurement (mass/volume)Ordered By: Kyung Stiles on 03-13-2025 Creatinine [Mass/Vol] 1.42 mg/dL High 0.70-1.20 [facility] Serum or plasma urea nitroge n measurement (mass/volume)Ordered By: Kyung Stiles on 03-13-2025 Urea nitrogen [Mass/Vol] 20 mg/dL High 4-19 [facility] Pulmonary Visit Reporton Pulmonary Visit Report [facility] [address] [place] [address] OFFICE VISIT Date of Service: 03/04/25 MR#: [id number] Acct: [id number] Name: JASMINABRAVO R Rep #: [id number] : [id number] Provider: Lynnette Avila NP Age/Sex: 64/M Location[place] [facility] [place] [facility] [place] Status: Signed Assessment and Plan Assessment and Plan (1) Obstructive sleep apnea: Status: Chronic Plan: Failing CPAP therapy. His compliance download shows elevation in AHI and the nocturnal oximetry was unable to pull the data for the night of the study. He does have a history of CO2 elevation on recent lab work. He is also awakening with morning respiratory symptoms. Last echocardiogram did not show evidence of pulmonary hypertension. He has had a change in condition with the recent cardiac ablation. Proceed with titration study for failure of CPAP at this time. (2) COPD (chronic obstructive pulmonary disease): Status: Chronic Qualifiers: COPD type: unspecified COPD Qualified Code(s): J44.9 - Chronic obstructive pulmonary disease, unspecified Comment: FEV1 is 66%, asthma COPD overlap syndrome Plan: Slight increase in respiratory symptoms, not exacerbating today. Increase use of albuterol inhaler and return to using PEP device. Continue with use of Wixela and Spiriva. Notify this practice if there are worsening respiratory symptoms. Mild COPD and asthma as well due to the response to the beta agonist. The degree of supplemental oxygen required upon exertion is disproportionate to the mild disease identified on PFT testing. I believe that there is a significant cardiovascular component to the patient's shortness of breath and exertional oxygen requirement. Continue to follow with cardiology, cardiology will be notified of calcific vascular disease seen on chest CT findings. The patient did receive some benefit in regards to respiratory symptoms with recent ablation. (3) Smoking greater than 40 pack years: Status: Acute Plan: Continue with complete smoking cessation. CTA from 02/2024 did not show evidence of nodules. LDCT repeated 02/2025 did not show the presence of nodules. The patient continues to meet criteria for the low-dose screening lung CT program and he is willing to continue with the recommendation of an annual LDCT. A repeat scan has been ordered for February 2026. (4) PAF (paroxysmal atrial fibrillation): Status: Chronic Comment: DCCV on 09/24/2022 in ER, 02/14/2023; Plan: Patient has had a history of paroxysmal atrial fibrillation and has recently underwent ablation. This can impact the control of the sleep disordered breathing. Await titration study. The patient understands the importance of obtaining control of sleep disordered breathing in regards to his history of A-fib. Orders: Orders Polysomnography with PAP Today G47.33 - Obstructive sleep apnea (adult) (pediatric) Low Dose CT Lung Screening 02/11/26 F17.210 - Nicotine dependence, cigarettes, uncomplicated Plan This note was generated with Dragon dictation software. It may contain incorrect words, spelling, and punctuation that were not noted in checking the note before signing. Portions of this docu mentation have been copied and pasted from previous office visit notes to provide a cohesive continuity of the history. The note has been reviewed, edited, and updated, as necessary. Plan Details Follow Up: 2 to 3 months (LMR) HPI HPI Comments Details: Patient is a 64-year-old male who presents today for follow-up. He is ambulatory and currently utilizing 3 L/min of supplemental oxygen. Since last follow-up he has not had urgent care or ER visit for respiratory symptoms. He has not needed oral prednisone or antibiotics for respiratory illness. He carries a diagnosis of COPD. He had previous PFT from March 28, 2022 which showed moderate obstructive abnormality with a response to bronchodilators. At his last office visit with his PCP he was noted to be symptomatic requiring supplemental oxygen. He also carries comorbid diagnoses of chronic kidney disease, atrial fibrillation, history of LA, history of coronary artery disease. In review of previous laboratories from June 17, 2024 the patient did have an elevated CO2 at 32.5. He does also have a history of sleep apnea and his baseline PSG from March 27, 2018 shows very severe obstructive sleep apnea with severe hypoxemia. The patient ended up having a split-night test that night due to the severity of the disease. The recommendation was to begin on CPAP 15 cm. He is using Wixela with good benefit. There has not been side effects such as sore throat or hoarseness. He has not required the use of his rescue inhaler. He does not use his nebulizer in a routine fashion. He does continue to use Sprivia. The patient continues to have shortness of breath with exertion. He repor (more content not included)... Normal [facility] CMP with eGFRon 02-25-2025 AGE 64 years Normal [facility] Comment on above: Performed By: #### 2 [id number] #### [facility],[address] [place] [address] 60784 Albumin [Mass/Vol] 3.7 g/dL Normal 3.4 - 5.0 [facility] Comment on above: Performed By: #### 2 04931 #### [facility],[address] [place] [address] 90909 Albumin/Globulin [Mass ratio] 1.2 {ratio} Normal 0.9 - 1.6 [facility] Comment on above: Performed By: #### 2 02817 #### [facility],[address] [place] [address] 03526 ALK PHOS 42 U/L Low 46 - 116 [facility] Comment on above: Performed By: #### 2 32288 #### [facility],[address] [place] [address] 10600 ALT [Catalytic activity/Vol] 46 U/L Normal 16 - 63 [facility] Comment on above: Performed By: #### 2 06643 #### [facility],[address] [place] [address] 35892 Anion gap [Moles/Vol] 10 mmol/L Normal 10 - 20 [facility] Comment on above: Performed By: #### 2 73825 #### [facility],[address] [place] [address] 03274 AST [Catalytic activity/Vol] 17 U/L Normal 15 - 37 [facility] Comment on above: Performed By: #### 2 01585 #### [facility],[address] [place] [address] 08719 B/C RATIO 16 ratio Normal 0 - 30 [facility] Comment on above: Performed By: #### 2 24640 #### [facility],[address] [place] [address] 40102 Bilirubin [Mass/Vol] 0.9 mg/dL Normal 0.2 - 1.0 [facility] Comment on above: Performed By: #### 2 74670 #### [facility],[address] [place] [address] 91776 Calcium [Mass/Vol] 8.9 mg/dL Normal 8.5 - 10.1 [facility] Comment on above: Performed By: #### 2 08946 #### [facility],[address] [place] [address] 20955 Chloride [Moles/Vol] 101 mmol/L Normal 98 - 107 [facility] Comment on above: Performed By: #### 2 54598 #### [facility],[address] [place] [address] 94776 CMP with eGFR Normal [facility] Comment on above: Result Comment: COMP REHENSIVE METABOLIC PANEL Performed By: #### 2 23678 #### [facility],[address] [place] [address] 97944 CO2 [Moles/Vol] 31.7 mmol/L Normal 21.0 - 32.0 [facility] Comment on above: Performed By: #### 2 39870 #### [facility],[address] [place] [address] 27992 Creatinine [Mass/Vol] 1.50 mg/dL High 0.70 - 1.30 [facility] Comment on above: Performed By: #### 2 58181 #### [facility],[address] [place] [address] 99162 eGFR 47 ML/MINUTE Low 60 - 999 [facility] Comment on above: Performed By: #### 2 23763 #### [facility],[address] [place] [address] 30824 eGFR(AA) 57 ML/MINUTE Low 60 - 999 [facility] Comment on above: Result Comment: ACCO RDING TO THE NATIONAL KIDNEY DISEASE EDUCATION PROGRAM(NKDE), A NORMAL eGFR IS A VALUE GREATER THAN OR EQUAL TO 60 ML/MIN/1.73 SQ METERS. CHRONIC KIDNEY DISEASE: <60mL/MIN/1.73 SQ METERS KIDNEY FAILURE: <15mL/MIN/1.73 SQ METERS THIS TEST SHOULD ONLY BE USED FOR PATIENTS 18 YEARS OF AGE AND OLDER. Performed By: #### 2 18923 #### [facility],[address] [place] [address] 40800 Globulin (S) [Mass/Vol] 3.0 g/dL Normal 1.5 - 3.8 [facility] Comment on above: Performed By: #### 2 57578 #### [facility],[address] [place] [address] 02624 Glucose [Mass/Vol] 134 mg/dL High 74 - 106 [facility] Comment on above: Performed By: #### 2 07529 #### [facility],[address] [place] [address] 86932 Potassium [Moles/Vol] 4.3 mmol/L Normal 3.5 - 5.1 [facility] Comment on above: Performed By: #### 2 56092 #### [address] [address] Protein [Mass/Vol] 6.7 g/dL Normal 6.4 - 8.2 [facility] Comment on above: Performed By: #### 2 22641 #### [facility],[address] [place], [place] [id number] Sodium [Moles/Vol] 138 mmol/L Normal 136 - 145 [facility] Comment on above: Performed By: #### 2 19614 #### [place] [address] Urea nitrogen [Mass/Vol] 24 mg/dL High 7 - 18 [facility] Comment on above: Performed By: #### 2 28239 #### [facility],[address] [place] [address] 00176 HEMOGLOBIN A1C (POM)on 02-25 Glucose [Mass/Vol] 145.6 mg/dL High 0.0 - 0.0 [facility] Comment on above: Result Comment: BLDo HEMOGLOBIN A1C REFERENCE RANGESBLDo Suggested Diagnosis HbA1c(%) HbA1C (mmol/mol Diabetic >/=6.5 >/=48 Prediabetes 5.7 - 6.4 39 - 47 Normal <5.7 <39 Performed By: #### 2 16874 #### [place] [id number] HbA1c (Bld) [Mass fraction] 6.7 % High 0.0 - 6.5 [facility] Comment on above: Performed By: #### 2 84755 #### [facility],[address] [place] [address] 64786 BMP with eGFRon 02-23-2025 AGE 64 years Normal [facility] Comment on above: Performed By: #### 2 55348 #### [facility],[address] [place] [address] 71436 Anion gap [Moles/Vol] 13 mmol/L Normal 10 - 20 [facility] Comment on above: Performed By: #### 2 17732 #### [facility],[address] [place] [address] 44775 BMP with eGFR Normal [facility] Comment on above: Result Comment: BASI C METABOLIC PANEL Performed By: #### 2 90726 #### [facility],[address] [place] [address] 50248 Calcium [Mass/Vol] 9.0 mg/dL Normal 8.5 - 10.1 [facility] Comment on above: Performed By: #### 2 43127 #### [facility],[address] [place] [address] 41166 Chloride [Moles/Vol] 103 mmol/L Normal 98 - 107 [facility] Comment on above: Performed By: #### 2 66293 #### [facility],[address] [place] [address] 11334 CO2 [Moles/Vol] 31.2 mmol/L Normal 21.0 - 32.0 [facility] Comment on above: Performed By: #### 2 77305 #### [facility],[address] [place] [address] 81197 Creatinine [Mass/Vol] 1.45 mg/dL High 0.70 - 1.30 [facility] Comment on above: Performed By: #### 2 73976 #### [facility],[address] [place] [address] 34147 eGFR 49 ML/MINUTE Low 60 - 999 [facility] Comment on above: Performed By: #### 2 [id number] #### [facility],[address] [place] [address] 47682 eGFR(AA) 59 ML/MINUTE Low 60 - 999 [facility] Comment on above: Result Comment: ACCO RDING TO THE NATIONAL KIDNEY DISEASE EDUCATION PROGRAM(NKDE), A NORMAL eGFR IS A VALUE GREATER THAN OR EQUAL TO 60 ML/MIN/1.73 SQ METERS. CHRONIC KIDNEY DISEASE: <60mL/MIN/1.73 SQ METERS KIDNEY FAILURE: <15mL/MIN/1.73 SQ METERS THIS TEST SHOULD ONLY BE USED FOR PATIENTS 18 YEARS OF AGE AND OLDER. Performed By: #### 2 65207 #### [facility],[address] [place] [address] 10784 Glucose [Mass/Vol] 124 mg/dL High 74 - 106 [facility] Comment on above: Performed By: #### 2 01405 #### [facility],[address] [place] [address] 22493 Potassium [Moles/Vol] 4.3 mmol/L Normal 3.5 - 5.1 [facility] Comment on above: Performed By: #### 2 78022 #### [facility],[address] [place] [address] 43730 Sodium [Moles/Vol] 143 mmol/L Normal 136 - 145 [facility] Comment on above: Performed By: #### 2 22778 #### [facility],[address] [place] [address] 53375 Urea nitrogen [Mass/Vol] 26 mg/dL High 7 - 18 [facility] Comment on above: Performed By: #### 2 37277 #### [facility],[address] [place] [address] 30686 CBC + DIFFon 02-23-2025 Baso # 0.05 x10EE3/UL Normal 0.00 - 0.10 [facility] Comment on above: Performed By: #### 2 82608 #### [facility],[address] [place] [address] Basophils/100 WBC (Bld) 0.7 % Normal 0.0 - 2.0 [facility] Comment on above: Performed By: #### 2 42531 #### [facility],[address] [place] [address] CBC + DIFF Normal [facility] Comment on above: Result Comment: CBC- COMPLETE BLOOD COUNT Performed By: #### 2 23994 #### [place] [address] EO # 0.22 x10EE3/UL Normal 0.00 - 0.50 [facility] Comment on above: Performed By: #### 2 08267 #### [place] [address] Eosinophils/100 WBC (Bld) 3.4 % Normal 0.0 - 7.0 [facility] Comment on above: Performed By: #### 2 16883 #### [place] [address] Erythrocyte distribution width (RBC) [Ratio] 14.7 % Normal 12.0 - 15.6 [facility] Comment on above: Performed By: #### 2 50170 #### [place] [address] Hematocrit (Bld) [Volume fraction] 41.1 % Normal 40.0 - 52.0 [facility] Comment on above: Performed By: #### 2 40498 #### [place] [address] Hemoglobin (Bld) [Mass/Vol] 13.7 g/dL Normal 13.0 - 17.5 [facility] Comment on above: Performed By: #### 2 15460 #### [facility],[address] [place] [address] Lymph # 1.51 x10EE3/UL Normal 0.80 - 2.80 [facility] Comment on above: Performed By: #### 2 27975 #### [facility],[address] [place] [address] Lymphocytes/100 WBC (Bld) 22.9 % Normal 20.0 - 45.0 [facility] Comment on above: Performed By: #### 2 24849 #### [facility],[address] [place] [address] MANUAL DIFF N/A Normal [facility] Comment on above: Performed By: #### 2 31778 #### [facility],[address] [place] [address] MCH (RBC) [Entitic mass] 31 pg Normal 27 - 33 [facility] Comment on above: Performed By: #### 2 34646 #### [facility],[address] [place] [address] MCHC 33 X10 3 Normal 32 - 36 [facility] Comment on above: Performed By: #### 2 57744 #### [facility],[address] [place] [address] MCV (RBC) [Entitic vol] 94 fL Normal 81 - 98 [facility] Comment on above: Performed By: #### 2 93863 #### [facility],[address] [place] [address] [place] # 0.58 x10EE3/UL Normal 0.20 - 1.00 [facility] Comment on above: Performed By: #### 2 28373 #### [facility],[address] [place] [address] MONOS % 8.8 % Normal 0.0 - 10.0 [facility] Comment on above: Performed By: #### 2 18538 #### [facility],[address] [place], [place] [address] Morphology Hasmukh (Bld) [Interp] N/A Normal [facility] Comment on above: Performed By: #### 2 23967 #### [facility],[address] [place] [address] 47230 Neut # 4.24 x10EE3/UL Normal 1.50 - 7.10 [facility] Comment on above: Performed By: #### 2 81765 #### [facility],[address] [place] [address] 57334 Neutrophils/100 WBC (Bld) 64.3 % Normal 46.0 - 76.0 [facility] Comment on above: Performed By: #### 2 95447 #### [facility],[address] [place] [address] 01173 PLATELET 233 x10EE3/UL Normal 150 - 450 [facility] Comment on above: Performed By: #### 2 96490 #### [facility],[address] [place] [address] 70788 Platelet mean volume (Bld) [Entitic vol] 7.9 fL Normal 6.4 - 10.5 [facility] Comment on above: Result Comment: AUTO MATED DIFFERENTIAL Performed By: #### 2 56081 #### [facility],[address] [place] [address] 49466 RBC 4.38 x 10EE6/UL Low 4.50 - 6.00 [facility] Comment on above: Performed By: #### 2 32513 #### [facility],[address] [place] [address] 47192 WBC 6.6 x 10EE3/UL Normal 4.5 - 10.8 [facility] Comment on above: Performed By: #### 2 01915 #### [facility],[address] [place] [address] Lung Screening 02-23-[address] Lung Screening [facility] Imaging Services [address] [place] [address] Lung Screening MR#: [id number] Acct: [id number] Name: BRAVO FREEDMAN Rep #: [id number] : 1960 M 64 From: Alfonzo Allison MD PCP: Dr. Mary Landeros MD Status: REG CLI Study: Low Dose CT Lung Screening Date of Exam: 02/23 Exam# [id number] Ordering Dr: Lynnette Avila ARMED GUARD- C PROCEDURE: LOW DOSE CT LUNG SCREENING 02/23/2025 REASON FOR EXAM: QUIT IN 2019, SMOKED 2.5 PPD FOR OVER 40 YEARS TECHNIQUE: Procedure Code: CTLUNGSCREEN Modality: CT Procedure: LOW DOSE CT LUNG SCREENING Coronal and Sagittal reconstruction series were provided. One or more dose reduction techniques were used (e.g., Automated exposure control, adjustment of the mA and/or kV according to patient size, use of iterative reconstruction technique). REFERENCE LINK: [employer] Lung-RADS RADIATION DOSE SUMMARY: CTDlvol: 4.02 mGy DLP: 128.88 mGycm COMPARISON: None FINDINGS: PULMONARY NODULES: (Only nodules >3mm are reported) Lower neck:The thyroid gland is grossly unremarkable. There is no supraclavicular lymphadenopathy. Mediastinum:There are few, non pathologically enlarged, mediastinal lymph nodes. Heart and thoracic aorta:There is cardiomegaly. There is no pericardial effusion. There is moderate calcific vascular disease of the coronary arteries and thoracic aorta. Esophagus:Normal. Upper Abdomen:There is calcific vascular disease of the visualized abdominal aorta. Chest wall:The soft tissues of the chest wall appear unremarkable. There is no axillary lymphadenopathy. There are findings of DISH throughout the thoracic spine. There is mild dextroscoliosis of the thoracic spine. Lungs, airways and pleura: There is pleural-parenchymal scarring in the middle lobe of the right lung and in the inferior segment of the lingula. There are no pulmonary nodules or masses. There are no pleural effusions. CT/Low Dose CT Lung Screening IMPRESSION: 1. There are no pulmonary nodules or masses. 2. There is calcific vascular disease. 3. Other findings as noted. Lung-RADS Category: 1 S: Negative. Calcific vascular disease. Recommendation: Follow up low-dose chest CT in 12 months. Reading Location: [place] [address] CC: Dr. Mary Landeros MD; Lynnette Avila NP Training Development Director: Signed Normal [facility] PTH, INTACT [CCL]on 02-24-20 25 PTH, Intact 48 pg/mL Normal [facility] Comment on above: Result Comment: [place] [address] Diomedes Eric III, M.D. [id number] Performed By: #### 2 22088 #### [facility],[address] [place], [place] [id number] PTH-Intact SerPl-mCncon 02-11 Parathyrin.intact [Mass/Vol] 48 pg/mL Normal [facility] Comment on above: Order Comment: Speci men Type: BLOOD SPECIMEN Ordering Facility: [facility] Address: [address] [place] [address] Performed By: #### 2 731-8 #### [facility] CLIA [id number] [address] [place] [address] [place] [facility] URIC ACIDon 02-23-2025 Urate [Mass/Vol] 5.6 mg/dL Normal 3.5 - 7.2 [facility] Comment on above: Performed By: #### 2 31181 #### [facility],[address] [place] [address] 63936 URINE CREATININE AND PROTEIN RATIOon 02-23-2025 CREATININE UR 16.50 mg/dl Normal [facility] Comment on above: Performed By: #### 2 89429 #### [facility],[address] [place] [address] 91439 PC RATIO 0.14 mg/dL Normal 0.00 - 10.00 [facility] Comment on above: Performed By: #### 2 28164 #### [facility],[address] [place] [address] 45991 URINE TOTAL PROTEIN <6.00 Normal 0.00 - 10.00 [facility] Comment on above: Performed By: #### 2 57564 #### [facility],[address] [place] [address] 84633 VITAMIN D, 25 HYDROXYon 02-11 VitD 65.90 ng/mL Normal 30.00 - 100 [facility] Comment on above: Result Comment: 25-O HD3 indicates both endogenous production and supplementation. 25-OHD2 is an indicator of exogenous sources, such as diet or supplementation. Therapy is based on measurement of Total 25-OHD, with levels <20 ng/mL indicative of Vitamin D deficiency, while levels between 20 ng/mL and 30 ng/mL suggest insufficiency. Optimal levels are >=30ng/mL. Vitamin D, 25-OH D3 Not Established Vitamin D, 25-OH D2 Not Established Performed By: #### 2 02274 #### [facility],[address] [place] [address] 26908 Pulmonary Visit Reporton Pulmonary Visit Report [facility] Medicine of [address] [place] [address] OFFICE VISIT Date of Service: 01/21/25 MR#: [id number] Acct: [id number] Name: BRAVO FREEDMAN Rep #: [id number] : 1960 Provider: Lynnette Avila NP Age/Sex: 64/M Location: [facility] Status: Signed with Addenda ADDENDUM by Lynnette Avila NP on 01/21/25 at 1323 Assessment and Plan Assessment and Plan (1) Obstructive sleep apnea: Status: Chronic (2) COPD (chronic obstructive pulmonary disease): Status: Chronic Qualifiers: COPD type: unspecified COPD Qualified Code(s): J44.9 - Chronic obstructive pulmonary disease, unspecified Comment: FEV1 is 66%, asthma COPD overlap syndrome (3) Smoking greater than 40 pack years: Status: Acute (4) PAF (paroxysmal atrial fibrillation): Status: Chronic Comment: DCCV on 09/24/2022 in ER, 02/14/2023; Plan This serves as an addendum to the office visit note from today. With the recent ablation the patient was prescribed supplemental home oxygen therapy. The patient already has home supplemental oxygen therapy available provided by his [facility]. The oxygen therapy provided from [employer] needs to be discontinued at this time. Plan Details Follow Up: 6 Weeks (LMR) 01/21/25 1323 Date Lynnette Avila cc: * Signed Assessment and Plan Assessment and Plan (1) Obstructive sleep apnea: Status: Chronic Plan: I am concerned today that this is uncontrolled although there is no objective data available from his device such as a compliance download or nocturnal oximetry. The CO2 is elevated on recent lab work so this may not be completely controlled at this time. He is also awakening with morning symptoms. Last echocardiogram did not show evidence of pulmonary hypertension. The patient may be failing CPAP and may require BiPAP therapy. For now I have recommended a compliance download and a nocturnal oximetry on his current settings. If either of these are abnormal then the patient will proceed with titration study for failure of CPAP. (2) COPD (chronic obstructive pulmonary disease): Status: Chronic Qualifiers: COPD type: unspecified COPD Qualified Code(s): J44.9 - Chronic obstructive pulmonary disease, unspecified Comment: FEV1 is 66%, asthma COPD overlap syndrome Plan: The patient has received benefit with increasing Wixela from 250-500 dosing. Partially reversible mild obstructive ventilatory disease identified on PFT with mild gas transfer abnormality and air trapping which do suggest mild COPD and asthma as well due to the response to the beta agonist. The degree of supplemental oxygen required upon exertion is disproportionate to the mild disease identified on PFT testing. I believe that there is a significant cardiovascular component to the patient's shortness of breath and exertional oxygen requirement. I recommend that he continue to use his Spiriva as this will help with the air trapping that has been identified on the PFT. Continue to follow with cardiology. The patient did receive some benefit in regards to respiratory symptoms with recent ablation. (3) Smoking greater than 40 pack years: Status: Acute Plan: Continue with complete smoking cessation. CTA from 02/2024 did not show evidence of nodules. LDCT repeated 02/2025, previously ordered accordingly. (4) PAF (paroxysmal atrial fibrillation): Status: Chronic Comment: DCCV on 09/24/2022 in ER, 02/14/2023; Plan: Patient has had a history of paroxysmal atrial fibrillation and has recently underwent ablation. This can impact the control of the sleep disordered breathing. Await further testing for sleep apnea and consider titration study. The patient understands the importance of obtaining control of sleep disordered breathing in regards to his history of A-fib. Plan This note was generated with [employer] dictation software. It may contain incorrect words, spelling, and punctuation that were not noted in checking the note before signing. Plan Details Follow Up: 6 Weeks (LMR) HPI HPI Comments Details: Patient is a 64-year-old male who presents today for follow-up for dyspnea. He is ambulatory and currently on room air. Since last follow-up he has not had urgent care or ER visit for respiratory symptoms. He has not needed oral prednisone or antibiotics for respiratory illness. He carries a diagnosis of COPD. He had previous PFT from March 28, 2022 which showed moderate obstructive abnormality with a response to bronchodilators. At his last office visit with his PCP he was noted to be symptomatic requiring supplemental oxygen. He also carries comorbid diagnoses of chronic kidney disease, atrial fibrillation, history of LA, history of coronary artery disease. In review of previous laboratories (more content not included)... [facility] HNO ID: [id number] Author: LINDA NEUMANN APRN.ELI Service: Cardiovascular Medicine Author Type: Nurse Practitioner Type: Discharge Summary Filed: 02/11/2025 09:45 Note Text: DISCHARGE SUMMARY PATIENT NAME: Bravo Freedman ADMISSION DATE: 01/05/2025 DISCHARGE DATE: 01/07/2025 ATTENDING PHYSICIAN: Tiara Rodriguez MD Code Status: Full Code Highest Readmission Risk Score: 11 The 30 day readmissions risk score is derived from an internally validated risk model which evaluates patient level characteristics, utilization history, medication orders and lab results up until the day of discharge. Patients with a score of 39 or above are considered highest risk for readmission. Specific patient level drivers will be listed at the bottom of the summary. CONSULTING TEAMS DURING HOSPITALIZATION: None Treatment Team: Attending Provider: Tiara Rodriguez MD Consulting: Demetri Oliva MD REASON FOR HOSPITALIZATION: Paroxysmal atrial fibrillation FINAL DIAGNOSIS: Status post atrial fibrillation ablation Active Hospital Problems Diagnosis POA Atrial fibrillation (HCC) Yes Acute on chronic heart failure with preserved ejection fraction (HCC) Unknown Acute on chronic respiratory failure with hypoxia (HCC) Unknown Chronic obstructive pulmonary disease (HCC) Unknown Tobacco abuse, in remission Unknown Hard to intubate Unknown ORTIZ (obstructive sleep apnea) Yes Resolved Hospital Problems No resolved problems to display. Morbid Obesity Class 3 OPERATIONS DURING HOSPITALIZATION: Atrial fibrillation ablation performed by Dr. Rodriguez January 05, 2025. PROCEDURES DURING HOSPITALIZATION: EKG HOSPITAL COURSE: Patient with paroxysmal atrial fibrillation. Patient presented to [facility] for elective atrial fibrillation ablation. This was performed by Dr. Rodriguez January 05, 2025. Patient tolerated procedure well. No complications. Patient was complaining of some chest pain last night but this morning states no further chest pain. He is complaining of some pleuritic chest pain yesterday morning while coughing but this is resolving. Patient is on chronic oxygen. Although, he states he is not compliant. He only wears the oxygen when he is walking long distances. Here in the hospital he is requiring 4 L oxygen nasal cannula at rest and will drop below 90% with movement. He states he has oxygen at home but his concentrator only goes up to 3 L and as above he does not wear it all the time. Patient states that he followed up with pulmonary about a month ago. Patient with COPD. Desaturation test was performed. Patient requires 4 L oxygen at rest and greater than 6 L oxygen withambulation. He was at 89% on 6 L. We ordered patient a concentrator that can go up to 10 L. We will make sure that patient has the necessary equipment prior to discharge. We asked pulmonary to see the patient prior to discharge. They recommended to possibly increase diuresis. Patient is not a fan of this. He is agreeable to 1 dose of IV Lasix prior to discharge. They have recommended 4 L of oxygen at rest and 6 L with ambulation. 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 From an ablation standpoint groin insertion site soft without signs of hematoma. No bruits. Patient will be discharged today. Patient has his discharge instructions and follow-up appointments printed out. PATIENT CONDITION AT DISCHARGE: Stable. DISCHARGE DISPOSITION: Home with Self Care Patient is alert and oriented x 4. No acute distress. Heart rate and rhythm regular. No murmurs gallops or rubs. Lungs clear to auscultation bilaterally anteriorly and posteriorly. Extremities without any cyanosis, clubbing, or edema. Groin insertion site soft without signs of hematoma. There is some bruising more on the left side than the right. No bruits. WOUND/SURGICAL SITE CARE: None DIET: Resume your pre-hospital diet ACTIVITY: Resume pre-hospital activity Limited to: Do not do any heavy lifting pushing or pulling for the next 5 to 7 days. ALLERGIES Allergen Reactions Codeine Gives him a migraine Crestor [Rosuvastat* Intolerance Leg cramps Lipitor [Atorvastat* Intolerance Leg cramps DISCHARGE MEDICATION: Medication List START taking these medications colchicine 0.6 mg tablet Take 1 tablet by mouth once daily for 13 days. CHANGE how you take these medications aspirin, enteric coated 81 mg EC tablet Commonly known as: ASPIRIN, ENTERIC COATED Take 1 tablet by mouth once daily. What changed: additional instructions CONTINUE taking these medications albuterol HFA 90 mcg/actuation inhaler Commonly known as: PROVENTIL HFA, VENTOLIN HFA alfuzosin SR 10 mg 24 hr tablet Commonly known as: UROXATRAL amLODIPine 10 mg tablet Commonly known as: NORVASC atorvastatin 80 mg tablet Commonly known as: LIPITOR Cholecalciferol (Vitamin D3) 125 mcg (5,000 unit) Cap CO Q-10 (more content not included)... Normal [facility] CONSULTon 01-07-2025 CONSULT HNO ID: [id number] Author: ZOILA GONZALEZ APRN.CNP Service: Pulmonary Disease Author Type: Nurse Practitioner Type: Consults Filed: 01/07/2025 10:39 Note Text: [facility] PULMONARY INITIAL CONSULT NOTE SERVICE DATE: 01/07/2025 SERVICE TIME: 9:25 AM REASON FOR CONSULT: increased o2 requirements. COPD. 4-6L. REQUESTING PHYSICIAN: Linda Neumann CNP PRIMARY CARE PHYSICIAN: Mary Landeros MD HPI: Mr. Freedman is a 64 year old male with PMHx of Chronic Hypoxemic Respiratory Failure, COPD, ORTIZ, A Fib, CAD s/p CABG, and Former Tobacco Abuse who presented to [facility] on 01/05/25 for a planned ablation for A Fib and was admitted post-operatively to 9M. Pulmonary service was consulted on 01/06/25 for increased o2 requirements. COPD. 4-6L. The patient states he hasn't been well since April 2024. He had issues with a triple A and then was found to have a blood clot on his kidney. He feels he has been going downhill since then. He was told in April that he has severe COPD and was started on oxygen as needed during the day. He has been on CPAP for the last 6-7 years and is very compliant with this. Since April, he has been using 2lpm bleed-in through CPAP at night. He follows with a [employer] Technician in [place] and has had PFTs in the past. After this testing, he was told that his biggest issue is his heart. He takes Advair, Spiriva, and as needed Albuterol at home. He has a nebulizer as well that he uses as needed. During my evaluation, his resting SpO2 remained 91-92% on 4L NC. He reports he has 3 oxygen concentrators at home as well as a portable oxygen concentrator. He recently (during this hospitalization) got an oxygen concentrator that goes up to 10lpm. His [employer] is [employer]. Today, he states that he feels pretty close to how he felt prior to April 2024, before he started going downhill. 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 He states he was exposed to a lot of dust there. He was also a smoker from age 13 until 2019 smoking up to 2PPD. He admits to weight gain of 25-30lbs since April 2024 and has been told he retains water in his legs. He now takes a water pill at home but has never been told to take more or less depending on his weight. He states he weighs himself regularly. Chest x-ray 01/06/25 showed central congestion, atelectatic changes at the lung bases, and possible small effusions. PAST MEDICAL HISTORY Diagnosis Date Anticoagulant long-term use Ana Atrial fibrillation (HCC) DR ELISE BPH (benign prostatic hyperplasia) Has see urology in the past COPD (chronic obstructive pulmonary disease) ([facility]) managed by [place] pulmonology Coronary artery disease with stent--Dr. Elise Diabetes ([facility]) PCP manages gerd MED CONTROLLED Heart attack ([facility]) DR ELISE -HE HAD LA 2018 High cholesterol managed by PCP Hypertension Managed by PCP Infrarenal abdominal aortic aneurysm (AAA) without rupture Monitored/managed by Dr. Stiles. 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 Sees Dr. Panchal PAST SURGICAL HISTORY Procedure Laterality Date APPENDECTOMY 1975 [place] ANGIOPLASTY OPEN RENAL/VISCERAL 02/24/2024 Dr Stiles CARDIOVERSION x7 ENDOVASCULAR ANEURYSM REPAIR 02/19/2024 Dr Stiles HAND/FINGER SURGERY UNLISTED both thumbs for infection a year apart HEART CATHETERIZATION 09/24/2018 single vessel CAD of the mid LCX, normal LVSF, LVEF 65%, elveated LVEDP, nonobstructive CAD PCI/STENT 09/24/2018 [place] to mid CX FAMILY HISTORY Problem Relation Age of Onset Cancer Father liver- bouchra crocker SOCIAL HISTORY[1] Prescriptions Prior to Admission[2] Current Facility-Administered Medications Medication Dose Route Frequency aspirin, enteric coated 81 mg tab(s) 81 mg ORAL DAILY apixaban 5 mg tab(s) (ELIQUIS) 5 mg ORAL BID amLODIPine 10 mg tab(s) (NORVASC) 10 mg ORAL AT BEDTIME atorvastatin 80 mg tab(s) (LIPITOR) 80 mg ORAL DAILY furosemide 20 mg tab(s) (LASIX) 20 mg ORAL DAILY isosorbide mononitrate ER 30 mg tab(s) (IMDUR) 30 mg ORAL DAILY losartan 25 mg tab(s) (COZAAR) 25 mg ORAL BID metoprolol tartrate (short acting) 50 mg tab(s) (LOPRESSOR) 50 mg ORAL BID albuterol HFA 90 mcg/actuation 1 puff (PROVENTIL HFA, VENTOLIN HFA) 1 puff INHALATION q 4 H PRN tiotropium bromide 2.5 mcg/actuation 2 puff (SPIRIVA RESPIMAT) 2 puff INHALATION DAILY pantoprazole DR 40 mg tab(s) (PROTONIX) 40 mg ORAL DAILY sertraline 50 mg tab(s) (ZOLOFT) 50 mg ORAL DAILY magnesium oxide 400 mg tab(s) (MAG-OX) 400 mg ORAL DAILY pyridoxine (vitamin B6) 100 mg tab(s) (VITAMIN B6) 100 mg ORAL DAILY acetaminophen 650 mg tab(s) (TYLENOL) 650 mg ORAL q 6 H PRN nitroglycerin sublingual 0.4 mg tab(s) (NITROQUICK) 0.4 mg SUBLINGUAL q 5 (more content not included)... Normal [facility] Basic metabolic 2000 panelon 01-06-2025 Anion gap [Moles/Vol] 8 mmol/L Normal 5-16 [facility] Comment on above: Order Comment: Speci men Type: BLOOD SPECIMEN Ordering Facility: [facility] Address: [address] [place] [address] Performed By: #### 2 4321-2 #### [facility] CLIA [id number] [address] [place] [address] [place] Calcium [Mass/Vol] 8.7 mg/dL Normal 8.5-10.5 [facility] Comment on above: Order Comment: Speci men Type: BLOOD SPECIMEN Ordering Facility: [facility] Address: [address] [place] [address] Performed By: #### 2 4321-2 #### [facility] CLIA [id number] [address] [place] [address] [place] Chloride [Moles/Vol] 105 mmol/L Normal 98-107 [facility] Comment on above: Order Comment: Speci men Type: BLOOD SPECIMEN Ordering Facility: [facility] Address: [address] [place] [address] Performed By: #### 2 4321-2 #### [facility] CLIA [id number] [address] [place] [address] [place] CO2 [Moles/Vol] 26 mmol/L Normal 21-32 [facility] Comment on above: Order Comment: Speci men Type: BLOOD SPECIMEN Ordering Facility: [facility] Address: [address] [place] [address] Performed By: #### 2 4321-2 #### [facility] CLIA [id number] [address] [place] [address] [place] Creatinine [Mass/Vol] 1.24 mg/dL Normal 0.50-1.40 [facility] Comment on above: Order Comment: Venus carrillo Type: BLOOD SPECIMEN Ordering Facility: [facility] Address: [address] [place] [address] Result Comment: Rosa ents receiving either N-Acetylcysteine (NAC) or Metamizole prior to venipuncture, may have falsely depressed results. Performed By: #### 2 4321-2 #### [facility] CLIA [id number] [address] [place] [address] [place] eGFRcr SerPlBld CKD-EPI 2020 65 mL/min/1.73m??? Normal >=60 [facility] Comment on above: Order Comment: Venus carrillo Type: BLOOD SPECIMEN Ordering Facility: [facility] Address: [address] [place] [address] Result Comment: Rachana mated Glomerular Filtration Rate (eGFR) is calculated using the 2020 CKD-EPI creatinine equation. This equation utilizes serum creatinine, sex, and age as parameters. The creatinine assay has traceable calibration to isotope dilution-mass spectrometry. Refer to KDIGO guidelines for clinical interpretation. In patients with unstable renal function, e.g. those with acute kidney injury, the eGFR may not accurately reflect actual GFR. Performed By: #### 2 4321-2 #### [facility] CLIA [id number] [address] [place] [address] [place] Glucose [Mass/Vol] 131 mg/dL High 70-100 [facility] Comment on above: Order Comment: Venus carrillo Type: BLOOD SPECIMEN Ordering Facility: [facility] Address: [address] [place] [address] Result Comment: The [place] Diabetes [employer] (ADA) provides guidance for cutoff values for fasting glucose and random glucose. The ADA defines fasting as no caloric intake for at least 8 hours. Fasting plasma glucose results between 100 to 125 mg/dL indicate increased risk for diabetes (prediabetes). Fasting plasma glucose results greater than or equal to 126 mg/dL meet the criteria for diagnosis of diabetes. In the absence of unequivocal hyperglycemia, results should be confirmed by repeat testing. In a patient with classic symptoms of hyperglycemia or hyperglycemic crisis, random plasma glucose results greater than or equal to 200 mg/dL meet the criteria for diagnosis of diabetes. Reference: Standards of Medical Care in Diabetes 2016, [place] Diabetes Association. Diabetes Care. 2016.39(Suppl 1). Results may be falsely elevated after the administration of Sulfapyridine. Results may be falsely depressed after the administration of Sulfasalazine. Performed By: #### 2 4321-2 #### [facility] CLIA [id number] [address] [place] [address] [place] Potassium [Moles/Vol] Normal [facility] Comment on above: Order Comment: Venus carrillo Type: BLOOD SPECIMEN Ordering Facility: [facility] Address: [address] [place] [address] Result Comment: Unab le to assay due to interference from hemolysis. Suggest reorder as clinically indicated. &XA&NOTIFIED CHLOÉ HEMOLYZED K, HN Performed By: #### 2 4321-2 #### [facility] CLIA [id number] [address] [place] [address] [place] Sodium [Moles/Vol] 139 mmol/L Normal 136-145 [facility] Comment on above: Order Comment: Venus carrillo Type: BLOOD SPECIMEN Ordering Facility: [facility] Address: [address] [place] [address] Performed By: #### 2 4321-2 #### [facility] CLIA [id number] [address] [place] [address] [place] Urea nitrogen [Mass/Vol] 17 mg/dL Normal - [facility] Comment on above: Order Comment: Venus carrillo Type: BLOOD SPECIMEN Ordering Facility: [facility] Address: [address] [place] [address] Performed By: #### 2 4321-2 #### [facility] CLIA [id number] [address] [place] [address] [place] CBC panel Auto (Bld)on 01-06 Erythrocyte distribution width (RBC) [Ratio] 15.4 % High 11.5-15.0 [facility] Comment on above: Order Comment: Speci men Type: BLOOD SPECIMEN Ordering Facility: [facility] Address: [address] [place] [address] Performed By: #### 2 4321-2 #### [facility] CLIA [id number] [address] [place] [address] [place] Hematocrit (Bld) [Volume fraction] 38.2 % Low 39.0-51.0 [facility] Comment on above: Order Comment: Speci men Type: BLOOD SPECIMEN Ordering Facility: [facility] Address: [address] [place] [address] Performed By: #### 2 4321-2 #### [facility] CLIA [id number] [address] [place] [address] [place] Hemoglobin (Bld) [Mass/Vol] 12.4 g/dL Low 13.0-17.0 [facility] Comment on above: Order Comment: Speci men Type: BLOOD SPECIMEN Ordering Facility: [facility] Address: [address] [place] [address] Performed By: #### 2 4321-2 #### [facility] CLIA [id number] [address] [place] [address] [place] MCH (RBC) [Entitic mass] 31.0 pg Normal 26.0-34.0 [facility] Comment on above: Order Comment: Speci men Type: BLOOD SPECIMEN Ordering Facility: [facility] Address: [address] [place] [address] Performed By: #### 2 4321-2 #### [facility] CLIA [id number] [address] [place] [address] [place] MCHC (RBC) [Mass/Vol] 32.5 g/dL Normal 30.5-36.0 [facility] Comment on above: Order Comment: Speci men Type: BLOOD SPECIMEN Ordering Facility: [facility] Address: [address] [place] [address] Performed By: #### 2 4321-2 #### [facility] CLIA [id number] [address] [place] [address] [place] MCV (RBC) [Entitic vol] 95.5 fL Normal 80.0-100.0 [facility] Comment on above: Order Comment: Speci men Type: BLOOD SPECIMEN Ordering Facility: [facility] Address: [address] [place] [address] Performed By: #### 2 4321-2 #### [facility] CLIA [id number] [address] [place] [address] [place] Nucleated RBC (Bld) [#/Vol] 10*3/uL Normal <0.01 [facility] Comment on above: Order Comment: Speci men Type: BLOOD SPECIMEN Ordering Facility: [facility] Address: [address] [place] [address] Performed By: #### 2 4321-2 #### [facility] CLIA [id number] [address] [place] [address] [place] Platelet mean volume (Bld) [Entitic vol] 9.8 fL Normal 9.0-12.7 [facility] Comment on above: Order Comment: Speci men Type: BLOOD SPECIMEN Ordering Facility: [facility] Address: [address] [place] [address] Performed By: #### 2 4321-2 #### [facility] CLIA [id number] [address] [place] [address] [place] Platelets (Bld) [#/Vol] 181 10*3/uL Normal 150-400 [facility] Comment on above: Order Comment: Speci men Type: BLOOD SPECIMEN Ordering Facility: [facility] Address: [address] [place] [address] Performed By: #### 2 4321-2 #### [facility] CLIA [id number] [address] [place] [address] [place] RBC (Bld) [#/Vol] 4.00 10*6/uL Low 4.20-6.00 [facility] Comment on above: Order Comment: Speci men Type: BLOOD SPECIMEN Ordering Facility: [facility] Address: [address] [place], [place] [id number] Performed By: #### 2 4321-2 #### [facility] CLIA [id number] [address] [place], [place] [id number] [place] WBC (Bld) [#/Vol] 8.75 10*3/uL Normal 3.70-11.00 [facility] Comment on above: Order Comment: Speci men Type: BLOOD SPECIMEN Ordering Facility: [facility] Address: [address] [place] [address] Performed By: #### 2 4321-2 #### [facility] CLIA [id number] [address] [place] [address] [place] NT-proBNP [facility]-nc 01-06 Natriuretic peptide.B prohormone N-Terminal [Mass/Vol] 299 pg/mL High <125 [facility] Comment on above: Order Comment: Specshane men Type: BLOOD SPECIMEN Ordering Facility: [facility] Address: [address] [place] [address] Result Comment: NT-p roBNP results of less than 300 pg/mL likely rules out acute congestive heart failure with 99% predictive value. NOTE: These cutoff points are suggested for ACUTE CHF DIAGNOSIS only Less than 50 years\X09\ Greater than 450 pg/mL 50 - 75 years\X09\\X09\ Greater than 900 pg/mL Greater than 75 years\X09\ Greater than 1800 pg/mL Performed By: #### 2 4321-2 #### [facility] CLIA [id number] [address] [place] [address] [place] POTASSIUMon 01-06-2025 Potassium [Moles/Vol] 4.6 mmol/L Normal 3.5-5.1 [facility] Comment on above: Order Comment: Speci men Type: BLOOD SPECIMEN Ordering Facility: [facility] Address: [address] [place], [place] [address] Performed By: #### 2 4321-2 #### [facility] CLIA [id number] [facility] [employer] [place] [id number] [facility] THERAPY NTon 01-06-2025 THERAPY NT HNO ID: [id number] Author: HANNA BLOOM RRT Service: Respiratory Therapy Author Type: Registered Resp Therapist Type: Therapy (PT/OT/Speech/Resp) Filed: 01/06/2025 11:07 Note Text: 01/06/25 1053 Home Oxygen Qualification Test $Home Oxygen Qualification Test $Performed Patient Currently On Home Oxygen Yes Home Oxygen Agency/Company Other: See Comment (Chris) Home Oxygen Device Nasal Cannula Home Oxygen LPM/FiO2% 3 Baseline SpO2 at Rest on Room Air 87 SpO2 < or = to 88% at Rest on RA Yes SpO2 at Rest maintained > or = to 92% on NC Liters 2 Final SpO2 on O2 at Rest 91 % Patient Ambulated? Yes Initial O2 Device for Ambulation NC Liters 4 SPO2 Maintained > or = to 92% on Initial O2 for Ambulation No, Test Continued Device for first O2 Adjustment NC Liters 6 (Sats 89% on 6L while ambulatory) SPO2 Maintained > or = to 92% on Adjusted O2 for Ambulation No, Test Terminated Due To Patient Clinical Status What was SpO2 on 4L O2 With Ambulation 87 Based on Medicare Guidelines Patient Qualifies For continuous oxygen Total Time Spent for Home Oxygen Qualification Test 15 minutes RESPIRATORY THERAPY PROGRESS NOTE SERVICE DATE: 01/06/2025 SERVICE TIME: 1106 Pt qualifies for 4L O2 at rest and pt requires >6L while ambulating (Sat 89% on 6L walking). SIGNATURE: Hanna Bloom RRT PATIENT NAME: Bravo Freedman DATE: January 06, 2025 TIME: 11:05 AM PAGER/CONTACT #: [facility] XR CHEST 2V FRONTAL/LATon XR CHEST 2V FRONTAL/LAT * * *Final Report* * * DATE OF EXAM: Jan 06 2025 5:10PM RHX [id number] - XR CHEST 2V FRONTAL/LAT / PROCEDURE REASON: Shortness of breath * * * * Physician Interpretation * * * * EXAMINATION: CHEST RADIOGRAPH (2 VIEW FRONTAL and LATERAL) CLINICAL HISTORY: Shortness of breath MQ: XC2_6 EXAM DATE/TIME: 01/06/2025 5:10 PM COMPARISON: No relevant prior studies available. RESULT: Lines, tubes, and devices: There are ECG leads. Lungs and pleura: There is a limited inspiratory effort. There are atelectatic changes at the lung bases. There is central congestion. There may be small effusions. Cardiomediastinal silhouette: There is enlargement of the cardiac silhouette. Bones and soft tissues: There are no acute osseous abnormalities. IMPRESSION: 1. Central congestion. 2. Atelectatic changes at the lung bases and possible small effusions. Training Development Director: PSCB Transcribe Date/Time: Jan 07 2025 6:59A Dictated by : MICHELE FONSECA MD This examination was interpreted and the report reviewed and electronically signed by: MICHELE FONSECA MD on Jan 07 2025 7:00AM EST [id number] [facility] ALLIED HEALTHon 01-05-2025 ALLIED HEALTH HNO ID: [id number] Author: RADHIKA KOVACS Chaplain Service: Spiritual Care Author Type: Theology Professor Type: Allied Health Filed: 01/05/2025 14:12 Note Text: SPIRITUAL CARE ASSESSMENT SERVICE DATE: 01/05/2025 SERVICE TIME: 1:30p Visit with: Patient Length of visit (minutes): 15 Holiness / Spirituality: Hoahaoism Reason: Spiritual Care Rounds ASSESSMENT Emotional Disposition: Grateful and Neutral Relational Concerns: Struggling with Autonomy and Struggling with Self-care Spiritual Concerns: None INTERVENTIONS Empowerment: Encouraged self-care Exploration: Facilitated story telling Relationship Building: Utilized Self-disclosure Ritual: None / Not Applicable OUTCOMES Patient debriefed/defused their experience and Patient expressed gratitude PLAN Follow-up not needed COMMENTS: Spiritual Care engaging in rounds; visited with patient and introduced spiritual care services. Patient expressed sincere appreciation for visit, AND knowledge of God's presence in patient's life, He's there, he's there SIGNATURE: Chaplain Wendy PATIENT NAME: Bravo Freedman DATE: January 05, 2025 TIME: 1:55 PM PAGER/CONTACT #: [phone] [facility] ANES POSTPROC EVALon 025 ANES POSTPROC EVAL HNO ID: [id number] Author: ADITYA FRIAS DO Service: Anesthesiology Author Type: Anesthesiologist Type: Anesthesia Postprocedure Evaluation Filed: 01/05/2025 15:16 Note Text: POST ANESTHESIA EVALUATION NOTE : 1960 Procedure Summary Date: 01/05/25 Room / Location: [facility] / [facility] Anesthesia Start: 819 Anesthesia Stop: 1103 Procedure: ADD'L PVI ABLATION (Bilateral: Groin) Diagnosis: Paroxysmal atrial fibrillation (HCC) (Paroxysmal atrial fibrillation (HCC) [I48.0]) Surgeons: Tiara Rodriguez MD Responsible Provider: Aditya Frias DO Anesthesia Type: general ASA Status: 3 Anesthesia Type: general Airway Type: ETT Last Vitals Vitals Value Taken Time BP 137/71 01/05/25 14:57 Temp 37.1 ?C (98.8 ?F) 01/05/25 14:58 Pulse 67 01/05/25 15:14 Resp 01/05/25 14:58 SpO2 88 % 01/05/25 15:01 Vitals shown include unfiled device data. Post Anesthesia Patient Status Patient Evaluation: PACU. PACU/ICU Patient Condition: stable. Anticipated Disposition: inpatient floor planned admission. Neurological Status: aware and responsive. Pulmonary Status: breathing comfortably on supplemental oxygen Airway Control: returned to baseline unsupported. Cardiovascular Status: stable. Pain Management: clinically adequate Postoperative Hydration: acceptable. Intraoperative Events: no significant anesthesia events Post Operative Nausea/Vomiting Status: no significant post operative nausea or vomiting Recommendation: continue current plan of care. Anesthesia Observations No Documentation SIGNATURE: Aditya Frias DO PATIENT NAME: Bravo Freedman DATE: January 05, 2025 TIME: 3:16 PM CSN: [id number] [facility] ANES PRE-OPon 01-05-2025 ANES PRE-OP HNO ID: [id number] Author: ADITYA FRIAS DO Service: Anesthesiology Author Type: Anesthesiologist Type: Anesthesia Preprocedure Evaluation Filed: 01/05/2025 06:58 Note Text: ANESTHESIOLOGY DAY OF SURGERY NOTE : 1960 Procedure Information Date/Time: 01/05/25 08 Procedure: ADD'L PVI ABLATION (Left: Cardiac) Location: [facility] / [facility] Surgeons: Tiara Rodriguez MD Estimated body mass index is 44.99 kg/m? as calculated from the following: Height as of this encounter: 175.3 cm (5' 9). Weight as of this encounter: 138.2 kg (304 lb 10.8 oz). 64 yo male obese, ex-smoker, 4-5 beers daily, +MJ daily PMH: Afib (Gosia - Eliquis LD 01/04), CAD/LA w/ PCI/stent 2019 (ASA), DM2 (Trulicity LD 12/28), COPD on O2 PRN, ORTIZ on CPAP w/ 2L O2 bleed in, HTN, HLD, GERD, BPH, infrarenal abdominal aortic aneurysm s/p EVAR (Go), Right renal artery occlusion, RICH/CKD (Shavonne) Last Airway: Airway Difficult Airway: No Final Airway Type: endotracheal airway Final Endotracheal Airway: ETT Cuffed: Yes Cormack-Lehane Classification: grade I - full view of glottis Technique Used For Successful Placement: video laryngoscopy Devices/Methods Used in Placement: Joanie, intubating stylet Insertion Site: oral Blade Size: 3 ETT Size (mm): 7.5 Number of Attempts at Approach: 1 Most recent hematocrit and potassium results: Hematocrit 38.5 02/26/2024 Potassium 4.4 02/26/2024 Relevant Problems ANESTHESIA (+) Obstructive sleep apnea syndrome CARDIO (+) Renal artery occlusion (HCC) PULMONARY (+) Obstructive sleep apnea syndrome Cardiovascular (+) Aneurysm of abdominal vessel Other (+) Obesity, Class III, BMI >= 40 I - PHYSICAL EVALUATION AIRWAY Patient intubated: No. Tracheostomy tube not present Mallampati: II. TM distance: >3 FB. Neck ROM: full ROM without neurological symptoms. Mouth opening: adequate. Short neck: no. Thick neck: yes DENTAL Normal dental observations. Dental findings: teeth intact. Additional exam findings: yes. CARDIOVASCULAR Rhythm: irregular Rate: normal PULMONARY Breath sounds clear to auscultation. II - ANESTHESIA PLAN ASA Score: 3 Anesthetic Plan: general Airway type: ETT NPO Status: adequate Beta Mariusz Monitoring Plan Monitoring plan: standard ASA. Post Procedure Analgesic Plan Postoperative analgesic plan: parenteral or oral opioids and per surgical service. Informed Consent Anesthetic risks, benefits, alternatives, personnel and consent discussed: yes. Patient / Responsible Libertarian agrees to proceed: yes Patient / Surrogate agrees to blood products: Yes Significant changes in the patient condition since the History and Physical, not otherwise documented in primary service progress note: no. Vitals Value Taken Time BP 152/78 01/05/25 06:35 Pulse 62 01/05/25 06:33 Resp 18 01/05/25 06:31 Temp 36.6 ?C (97.9 ?F) 01/05/25 06:31 SpO2 97 % 01/05/25 06:33 Vitals shown include unfiled device data. Facility-Administered Medications as of 01/05/2025 Medication Dose Route Frequency - lidocaine (PF) 10 mg/mL (1 %) 2 mg injection (XYLOCAINE) 0.2 mL INTRADERMAL PRN - NaCl 0.9% iv infusion 30 mL/hr INTRAVENOUS CONTINUOUS - NaCl 0.9% iv flush bag 20 mL INTRAVENOUS PRN Outpatient Medications as of 01/05/2025 Medication Sig - ELIQUIS 5 mg tab(s) Take 5 mg by mouth two times a day. Last dose 01/04 am dose - TRULICITY 0.75 mg/0.5 mL pen injector Inject 0.75 mg subcutaneously one time a week. Takes on Sundays. Last dose 12/28/24 - furosemide (LASIX) 20 mg tablet Take 1 tablet by mouth once daily. - sertraline (ZOLOFT) 50 mg tablet Take 50 mg by mouth every morning. - SPIRIVA RESPIMAT 2.5 mcg/actuation inhaler Inhale 2 puffs as instructed once daily. - fluticasone-salmeterol (ADVAIR) 500-50 mcg/dose dsdv Inhale 1 puff as instructed two times a day. - isosorbide mononitrate ER (IMDUR) 30 mg 24 hr tablet Take 1 tablet by mouth once daily. - Cholecalciferol, Vitamin D3, 125 mcg (5,000 unit) cap Take 1 capsule by mouth once daily. Takes as a prescription - albuterol HFA (PROVENTIL HFA, VENTOLIN HFA) 90 mcg/actuation inhaler Inhale 1 puff as instructed every 4 hours as needed for wheezing/shortness of breath. - amLODIPine (NORVASC) 10 mg tablet Take 10 mg by mouth daily at bedtime. - aspirin, enteric coated (ASPIRIN, ENTERIC COATED) 81 mg EC tablet Take 1 tablet by mouth once daily. (Patient taking differently: Take 81 mg by mouth once daily. Awaiting hold instructions from cardiology) - alfuzosin SR (UROXATRAL) 10 mg 24 hr tablet Take 10 mg by mouth once daily. - atorvastatin (LIPITOR) 80 mg tablet Take 80 mg by mouth once daily. - losartan (COZAAR) 25 mg tablet Take 25 mg by mouth two times a day. - metoprolol tartrate, short acting, (LOPRESSOR) 50 mg tablet Take 50 mg by mouth two times a day. - pantoprazole DR (PROTONIX) 40 mg tablet Take 40 mg by mouth once daily. - omega-3s/dha/epa/fish oi (more content not included)... Normal [facility] Basic metabolic 2000 panelon 01-05-2025 Anion gap [Moles/Vol] 8 mmol/L Normal 5-16 [facility] Comment on above: Order Comment: Speci men Type: BLOOD SPECIMEN [facility]ing Facility[facility] Address: [address] [place] [address] Performed By: #### 5 7021-8 #### [facility] CLIA [id number] [address] [place] [address] [place] Calcium [Mass/Vol] 9.4 mg/dL Normal 8.5-10.5 [facility] Comment on above: Order Comment: Speci men Type: BLOOD SPECIMEN Ordering Facility: [facility] Address: [address] [place] [address] Performed By: #### 5 7021-8 #### [facility] CLIA [id number] [address] [place] [address] [place] Chloride [Moles/Vol] 104 mmol/L Normal 98-107 [facility] Comment on above: Order Comment: Speci men Type: BLOOD SPECIMEN Ordering Facility: [facility] Address: [address] [place] [address] Performed By: #### 5 7021-8 #### [facility] CLIA [id number] [address] [place] [address] [place] CO2 [Moles/Vol] 28 mmol/L Normal 21-32 [facility] Comment on above: Order Comment: Speci men Type: BLOOD SPECIMEN Ordering Facility: [facility] Address: [address] [place] [address] Performed By: #### 5 7021-8 #### [facility] CLIA [id number] [address] [place] [address] [place] Creatinine [Mass/Vol] 1.40 mg/dL Normal 0.50-1.40 [facility] Comment on above: Order Comment: Venus carrillo Type: BLOOD SPECIMEN Ordering Facility: [facility] Address: [address] [place] [address] Result Comment: Rosa ents receiving either N-Acetylcysteine (NAC) or Metamizole prior to venipuncture, may have falsely depressed results. Performed By: #### 5 7021-8 #### [facility] CLIA [id number] [address] [place] [address] [place] eGFRcr SerPlBld CKD-EPI 2020 56 mL/min/1.73m??? Low >=60 [facility] Comment on above: Order Comment: Venus carrillo Type: BLOOD SPECIMEN [facility]ing Facility: [facility] Address: [address] [place] [address] Result Comment: Rachana mated Glomerular Filtration Rate (eGFR) is calculated using the 2020 CKD-EPI creatinine equation. This equation utilizes serum creatinine, sex, and age as parameters. The creatinine assay has traceable calibration to isotope dilution-mass spectrometry. Refer to KDIGO guidelines for clinical interpretation. In patients with unstable renal function, e.g. those with acute kidney injury, the eGFR may not accurately reflect actual GFR. Performed By: #### 5 7021-8 #### [facility] CLIA [id number] [address] [place] [address] [place] Glucose [Mass/Vol] 140 mg/dL High 70-100 [facility] Comment on above: Order Comment: Venus carrillo Type: BLOOD SPECIMEN [facility]ing Facility: [facility] Address: [address] [place] [address] Result Comment: The [place] [employer] (ADA) provides guidance for cutoff values for fasting glucose and random glucose. The ADA defines fasting as no caloric intake for at least 8 hours. Fasting plasma glucose results between 100 to 125 mg/dL indicate increased risk for diabetes (prediabetes). Fasting plasma glucose results greater than or equal to 126 mg/dL meet the criteria for diagnosis of diabetes. In the absence of unequivocal hyperglycemia, results should be confirmed by repeat testing. In a patient with classic symptoms of hyperglycemia or hyperglycemic crisis, random plasma glucose results greater than or equal to 200 mg/dL meet the criteria for diagnosis of diabetes. Reference: Standards of Medical Care in Diabetes 2016, [place] Diabetes Association. Diabetes Care. 2016.39(Suppl 1). Results may be falsely elevated after the administration of Sulfapyridine. Results may be falsely depressed after the administration of Sulfasalazine. Performed By: #### 5 7021-8 #### [facility] CLIA [id number] [address] [place] [address] [place] Potassium [Moles/Vol] 3.9 mmol/L Normal 3.5-5.1 [facility] Comment on above: Order Comment: Venus carrillo Type: BLOOD SPECIMEN [facility]ing Facility: [facility] Address: [address] [place] [address] Performed By: #### 5 7021-8 #### [facility] CLIA [id number] [address] [place] [address] [place] Sodium [Moles/Vol] 140 mmol/L Normal 136-145 [facility] Comment on above: Order Comment: Venus carrillo Type: BLOOD SPECIMEN [facility]ing Facility: [facility] Address: [address] [place] [address] Performed By: #### 5 7021-8 #### [facility] CLIA [id number] [address] [place] [address] [place] Urea nitrogen [Mass/Vol] 24 mg/dL Normal 7-26 [facility] Comment on above: Order Comment: Venus carrillo Type: BLOOD SPECIMEN [facility]ing Facility[facility] Address: [address] [place] [address] Performed By: #### 5 7021-8 #### [facility] CLIA [id number] [address] [place] [address] [place] CBC panel Auto (Bld)on 01-05 Erythrocyte distribution width (RBC) [Ratio] 14.9 % Normal 11.5-15.0 [facility] Comment on above: Order Comment: Speci men Type: BLOOD SPECIMEN Ordering Facility: [facility] Address: [address] [place] [address] Performed By: #### 5 7021-8 #### [facility] CLIA [id number] [address] [place] [address] [place] Hematocrit (Bld) [Volume fraction] 42.2 % Normal 39.0-51.0 [facility] Comment on above: Order Comment: Speci men Type: BLOOD SPECIMEN [facility]ing Facility: [facility] Address: [address] [place] [address] Performed By: #### 5 7021-8 #### [facility] CLIA [id number] [address] [place] [address] [place] Hemoglobin (Bld) [Mass/Vol] 13.9 g/dL Normal 13.0-17.0 [facility] Comment on above: Order Comment: Speci men Type: BLOOD SPECIMEN Ordering Facility: [facility] Address: [address] [place] [address] Performed By: #### 5 7021-8 #### [facility] CLIA [id number] [address] [place] [address] [place] MCH (RBC) [Entitic mass] 31.0 pg Normal 26.0-34.0 [facility] Comment on above: Order Comment: Speci men Type: BLOOD SPECIMEN Ordering Facility: [facility] Address: [address] [place] [address] Performed By: #### 5 7021-8 #### [facility] CLIA [id number] [address] [place] [address] [place] MCHC (RBC) [Mass/Vol] 32.9 g/dL Normal 30.5-36.0 [facility] Comment on above: Order Comment: Speci men Type: BLOOD SPECIMEN Ordering Facility: [facility] Address: [address] [place] [address] Performed By: #### 5 7021-8 #### [facility] CLIA [id number] [address] [place] [address] [place] MCV (RBC) [Entitic vol] 94.2 fL Normal 80.0-100.0 [facility] Comment on above: Order Comment: Speci men Type: BLOOD SPECIMEN Ordering Facility: [facility] Address: [address] [place] [address] Performed By: #### 5 7021-8 #### [facility] CLIA [id number] [address] [place] [address] [place] Nucleated RBC (Bld) [#/Vol] 10*3/uL Normal <0.01 [facility] Comment on above: Order Comment: Speci men Type: BLOOD SPECIMEN Ordering Facility: [facility] Address: [address] [place] [address] Performed By: #### 5 7021-8 #### [facility] CLIA [id number] [address] [place] [address] [place] Platelet mean volume (Bld) [Entitic vol] 9.5 fL Normal 9.0-12.7 [facility] Comment on above: Order Comment: Speci men Type: BLOOD SPECIMEN Ordering [facility] Address: [address] [place] [address] Performed By: #### 5 7021-8 #### [facility] CLIA [id number] [address] [place] [address] [place] Platelets (Bld) [#/Vol] 191 10*3/uL Normal 150-400 [facility] Comment on above: Order Comment: Speci men Type: BLOOD SPECIMEN Ordering Facility: [facility] Address: [address] [place] [address] Performed By: #### 5 7021-8 #### [facility] CLIA [id number] [address] [place] [address] [place] RBC (Bld) [#/Vol] 4.48 10*6/uL Normal 4.20-6.00 [facility] Comment on above: Order Comment: Speci men Type: BLOOD SPECIMEN Ordering Facility[facility] Address: [address] [place] [id number] Performed By: #### 5 7021-8 #### [facility] CLIA [id number] [address] [place] [address] [place] WBC (Bld) [#/Vol] 6.72 10*3/uL Normal 3.70-11.00 [facility] Comment on above: Order Comment: Speci men Type: BLOOD SPECIMEN Ordering Facility: [facility] Address: [address] [place], [place] [address] Performed By: #### 5 7021-8 #### [facility] CLIA [id number] [address] [place], [place] [address] [facility] ECG COMPLETEon 01-05-2025 ECG COMPLETE Ventricular Rate : 6 8 BPM Atrial Rate : 68 BPM P-R Interval : 228 ms QRS Duration : 84 ms Q-T Interval : 424 ms QTC Calculation(Bazett) : 450 ms Calculated P [place] : 33 degrees Calculated R [place] : 54 degrees Calculated T [place] : 44 degrees Sinus rhythm 1st degree AV block with Premature atrial complexes Otherwise normal ECG When compared with ECG of 05-Jan-2025 06:48, No significant change was found Confirmed by NAMAN DELACRUZ MD ([id number]) on 01/07/2025 6:01:07 AM NAME : BRAVO FREEDMAN PID : [id number] : 1960 Gender : Male Race : ORD : [id number] Procedure Date : Jan 05 2025 11:25:24 Edit Date : Jan 07 2025 06:01:13 Diagnosis: Sinus rhythm 1st degree AV block with Premature atrial complexes Otherwise normal ECG When compared with ECG of 05-Jan-2025 06:48, No significant change was found Confirmed by NAMAN DELACRUZ MD ([id number]) on 01/07/2025 6:01:07 AM Test Reason : stat Location : 16 : [place] [address] Overread By : NAMAN DELACRUZ MD Edited By : NAMAN DELACRUZ MD Referred By : , Acquired by : WEINER,[facility] ECG COMPLETE Ventricular Rate : 6 2 BPM Atrial Rate : 62 BPM P-R Interval : 228 ms QRS Duration : 90 ms Q-T Interval : 440 ms QTC Calculation(Bazett) : 446 ms Calculated P [place] : -1 degrees Calculated R [place] : 37 degrees Calculated T [place] : 24 degrees Sinus rhythm 1st degree AV block Otherwise normal ECG No previous ECGs available Confirmed by NAMAN DELACRUZ MD ([id number]) on 01/07/2025 5:57:12 AM NAME : BRAVO FREEDMAN PID : [id number] : 1960 Gender : Male Race : ORD : [id number] Procedure Date : Jan 05 2025 06:48:26 Edit Date : Jan 07 2025 05:57:15 Diagnosis: Sinus rhythm 1st degree AV block Otherwise normal ECG No previous ECGs available Confirmed by NAMAN DELACRUZ MD ([id number]) on 01/07/2025 5:57:12 AM Test Reason : stat Location : 23 : [facility] Overread By : NAMAN DELACRUZ MD Edited By : NAMAN DELACRUZ MD Referred By : , [facility] : [facility] HISTORY PHYSICALon HISTORY PHYSICAL HNO ID: [id number] Author: TIARA RODRIGUEZ MD Service: Cardiovascular Medicine Author Type: Physician Type: H&P Filed: 01/05/2025 08:20 Note Text: UPDATED PROCEDURAL SEDATION HISTORY AND PHYSICAL EXAMINATION SERVICE DATE: 01/05/2025 SERVICE TIME: 8:18 AM PROCEDURE: AF ablation Procedure Indications: AF The History and Physical (completed in the past 30 days) has been reviewed and the patient has been examined. The contents accurately reflect the patient's condition with the following additions or revisions since the HANDP was completed. ASA Class: N/a Examination indicates no changes. Adherent to medications, noted an episode of AF attack on Sat. Has baseline SOBOE, uses home oxygen when sleeps and also with activity. 2-3L Provisional Diagnosis/Treatment Plan: , as above This HANDP can be found in the Electronic Medical Record. SIGNATURE: Tiara Rodriguez MD PATIENT NAME: Bravo Freedman DATE: January 05, 2025 TIME: 8:18 AM [facility] PT panel Coag (PPP)on 2024 INR Coag (PPP) [Relative time] 1.1 {INR} Normal 0.9-1.3 [facility] Comment on above: Order Comment: Venus carrillo Type: BLOOD SPECIMEN [facility] Address: [address] [id number] Result Comment: Yoana min K Antagonist (VKA) Therapeutic Range: INR 2 to 3 (Target INR of 2.5) Note: For patients treated with VKA drugs, such as warfarin, the [place] [employer] 2012 Guideline recommends a therapeutic INR range of 2 to 3 (target INR of 2.5). This recommendation includes high-risk patients with antiphospholipid syndrome with previous arterial or venous thromboembolism, current-generation mechanical or bioprosthetic aortic heart valve replacement. Note: Patients with mechanical aortic valve replacement and additional risk factors for thromboembolic events (atrial fibrillation, previous thromboembolism, LV dysfunction, hypercoagulable conditions) or an older generation mechanical AVR (i.e., ball in-Cage) or any mechanical MVR should have a INR therapeutic range of 2.5 to 3.5 (target INR of 3). Мария FISCHER, et al. Chest 2012, 141:7S-47S Christophe RA, et al. [facility] 2017, 70: 252-289 Performed By: #### 5 7021-8 #### [facility] CLIA [id number] [address] [place] [address] [place] PT Coag (PPP) [Time] 11.6 s Normal 9.7-13.0 [facility] Comment on above: Order Comment: Venus carrillo Type: BLOOD SPECIMEN [facility]ing Facility: [facility] Address: [address] [place] [address] Performed By: #### 5 7021-8 #### [facility] CLIA [id number] [address] [place] [address] [place] TYPE + SCREENon 01-05-2025 ABO O Normal [facility] Comment on above: Order Comment: Venus carrillo Type: BLOOD SPECIMEN Ordering Facility: [facility] Address: [address] [place] [address] Performed By: #### 5 7021-8 #### [facility] CLIA [id number] [address] [place], [place] [address] [facility] Rh Nom (Bld) Positive Normal [facility] Comment on above: Order Comment: Speci men Type: BLOOD SPECIMEN [facility]ing Facility[facility] Address: [address] [place], [place] [address] Performed By: #### 5 7021-8 #### [facility] CLIA [id number] [address] [place], [place] [address] [facility] TYPE AND SCREEN EXPIRATION 01/08/2025 23:59 Normal [facility] Comment on above: Order Comment: Speci men Type: BLOOD SPECIMEN [facility]ing Facility[facility] Address: [address] [place], [place] [address] Performed By: #### 5 7021-8 #### [facility] CLIA [id number] [address] [place], [place] [address]Maria Del Rosario 01-02-2025 [place] Telephone (CARMOB) -- JASMINABRAVO Juan ([id number]) 1960 M Date Time Provider Department 01/02/25 TIARA RODRIGUEZ During your visit today, we recorded the following information about you: Chepe Alan RN 01/02/2025 2:02 PM Signed Pre-procedure instructions for AF ablation scheduled to be performed on Sunday02/05/2025 reviewed with pt's , Steph, at this time. She was instructed that Guillermo should be NPO except for medications after midnight on the morning of the procedure. She was instructed that he should hold his Eliquis and Furosemide on the morning of the surgery. He may continue to take his aspirin as prescribed. She was encouraged to call back with any questions or concerns. She verbalized understanding of instructions and provided positive feedback for the call. Chepe Alan RN January 02, 2025 2:01 PM Allergies As of Date: 01/02/2025 Noted Allergy Reaction CODEINE 10/09/2006 Comments: Gives him a migraine CRESTOR (ROSUVASTATIN) 02/23/2024 5 - Intolerance Comments: Leg cramps LIPITOR (ATORVASTATIN) 02/23/2024 5 - Intolerance Comments: Leg cramps Date Reviewed: 01/02/2025 Reviewed by: Farheen Aj RT(R) - Fully Assessed Reason for Visit: Pre-procedure instructions for AF ablation [Other] Prescriptions as of 01/02/2025 - ELIQUIS 5 mg tab(s) Take 5 mg by mouth two times a day. Last dose 01/04 am dose - TRULICITY 0.75 mg/0.5 mL pen injector Inject 0.75 mg subcutaneously one time a week. Takes on Sundays. Last dose 12/28/24 - furosemide (LASIX) 20 mg tablet Take 1 tablet by mouth once daily. - sertraline (ZOLOFT) 50 mg tablet Take 50 mg by mouth every morning. - SPIRIVA RESPIMAT 2.5 mcg/actuation inhaler Inhale 2 puffs as instructed once daily. - fluticasone-salmeterol (ADVAIR) 500-50 mcg/dose dsdv Inhale 1 puff as instructed two times a day. - isosorbide mononitrate ER (IMDUR) 30 mg 24 hr tablet Take 1 tablet by mouth once daily. - Cholecalciferol, Vitamin D3, 125 mcg (5,000 unit) cap Take 1 capsule by mouth once daily. Takes as a prescription - albuterol HFA (PROVENTIL HFA, VENTOLIN HFA) 90 mcg/actuation inhaler Inhale 1 puff as instructed every 4 hours as needed for wheezing/shortness of breath. - amLODIPine (NORVASC) 10 mg tablet Take 10 mg by mouth daily at bedtime. - aspirin, enteric coated (ASPIRIN, ENTERIC COATED) 81 mg EC tablet Take 1 tablet by mouth once daily. - alfuzosin SR (UROXATRAL) 10 mg 24 hr tablet Take 10 mg by mouth once daily. - atorvastatin (LIPITOR) 80 mg tablet Take 80 mg by mouth once daily. - losartan (COZAAR) 25 mg tablet Take 25 mg by mouth two times a day. - metoprolol tartrate, short acting, (LOPRESSOR) 50 mg tablet Take 50 mg by mouth two times a day. - pantoprazole DR (PROTONIX) 40 mg tablet Take 40 mg by mouth once daily. - omega-3s/dha/epa/fish oil/D3 (VITAMIN-D + OMEGA-3 ORAL) Take 125 mg by mouth once daily. LD 01/01/25 - Coenzyme Q10 (CO Q-10) 200 mg cap Take 200 mg by mouth once daily. Last dose 01/01/25 - ascorbic acid, vitamin C, (VITAMIN C) 500 mg tablet Take 1,000 mg by mouth once daily. Last dose 01/01/25 - Magnesium 250 mg tab Take 500 mg by mouth once daily. - pyridoxine, vitamin B6, (VITAMIN B-6) 100 mg tablet Take 100 mg by mouth once daily. Last dose 01/01/25 - OXYGEN, HOME THERAPY, Inhale 2 L/min as instructed daily at bedtime. 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 There is request to define pulmonary vein anatomy. TECHNIQUE: SCANNER: Multi-detector scanner PROTOCOL: Sequential imaging of the heart with prospective triggering in systolic phase and 1.5 mm slice reconstruction was performed following the intravenous administration of contrast material. The scan range extended from maryellen to the base of the heart CT Dose-Length Product (DLP): 385.01 mGy*cm CT Dose Reduction Employed: Automated exposure control(AEC) and iterative recon CONTRAST: IV administration of 90 ml Omnipaque 350 Scan acquisition was uncomplicated. Macro Version: [id number] For optimization of anatomic evaluation, advanced 3-D off-line postprocessing was performed on a dedicated workstation by the interpreting physician. STUDY LIMITATIONS: None. RESULT: LINES, TUBES and DEVICES: None visualized CHEST: Chest wall anatomy: unremarkable. visualized LUNGS: bibasilar atelectasis. visualized MEDIASTINUM: unremarkable. PERICARDIUM: unremarkable CENTRAL PULMONARY ARTERY: normal dimensions. Assessment is limited due to limited contrast enhancement. CARDIAC CHAMBERS: Chamber size may be underestimated in single-phase systolic acquisition. LEFT VENTRICLE: normal size. RIGHT VENTRICLE: normal size LEFT ATRIUM: dilated. JATINDER: normal. RIGHT ATRIUM: normal size CENTRAL VENOUS and PULMONARY VENOUS RETURN: normal. Coronary Sinus: normal size MITRAL VALVE: assessment is limited in the current study - no leaflet calcification. No annular calcification TRICUSPID and PULMONIC VALVE: appear unremarkable. PULMONARY VEINS: Major pulmonary veins are widely patent without evidence of pulmonary vein stenosis. Left sided veins originate from a common antrum. Right middle vein is a branch of the right superior vein RSPV (right superior): Normal; no luminal stenosis. No wall changes. RIPV (right inferior): Normal; no luminal stenosis. No wall changes. RMPV (right middle): Normal; no luminal stenosis. No wall changes. LSPV (left superior): Normal; no luminal stenosis. No wall changes. LIPV (left inferior): Normal; no luminal stenosis. No wall changes. CORONARY ANATOMY: normal origin of the coronary arteries. Calcified atherosclerotic changes of the coronary arteries, precluding precise assessment with CT. AORTIC VALVE: assessment is limited, appears trileaflet. No leaflet calcification. visualized AORTA: Pathology: No aortic pathology of the limited visualized segment of the aorta. Intervention: None Complications: n/a Aortic Size: Dilation aortic root. STJ: maintained Wall Changes: no evidence of wall changes. AORTIC DIMENSIONS: AORTIC ROOT: 4.1 cm measured [id number] mid ASCENDING THORACIC AORTA: 3.4 cm mid DESCENDING THORACIC AORTA: 2.7 cm limited upper ABDOMEN: unremarkable BONES and SOFT TISSUES: degenerative changes of the thoracic spine. Breakfast Bar Attendant (topogram) images: No additional findings. IMPRESSION: WIDELY PATENT PULMONARY VEINS WITHOUT PULMONARY VEIN STENOSIS. No Evidence of JATINDER Thrombus Mildly dilated aortic root to 4.1 cm. Training Development Director: [facility] Transcribe Date/Time: Jan 02 2025 9:39A Dictated by : WALTER BYRNE MD This examination was interpreted and the report reviewed and electronically signed by: WALTER BYRNE MD on Jan 02 2025 10:22AM [facility] [id number] [facility] CTA Pulmonary veins W contra st Lawanda 01-02-2025 IMPRESSION: WIDELY PATENT PULMONARY VEINS WITHOUT PULMONARY VEIN STENOSIS. No Evidence of JATINDER Thrombus Mildly dilated aortic root to 4.1 cm. Training Development Director: [facility] Transcribe Date/Time: Jan 02 2025 9:39A Dictated by : WALTER BYRNE MD This examination was interpreted and the report reviewed and electronically signed by: WALTER BYRNE MD on Jan 02 2025 10:22AM [facility] * * *Final Report* * * DATE OF EXAM: Jan 02 2025 9:32AM [facility] 5227 - CT PULMONARY VEIN W IVCON / PROCEDURE REASON: Paroxysmal atrial fibrillation (HCC) * * * * Physician Interpretation * * * * Cardiac CTA of the Pulmonary Veins Direct Image Comparison: None HISTORY: 64 years old Male patient with chronic h/o atrial fibrillation The patient is evaluated for further treatment options, including PVI. There is request to define pulmonary vein anatomy. TECHNIQUE: SCANNER: Multi-detector scanner PROTOCOL: Sequential imaging of the heart with prospective triggering in systolic phase and 1.5 mm slice reconstruction was performed following the intravenous administration of contrast material. The scan range extended from maryellen to the base of the heart CT Dose-Length Product (DLP): 385.01 mGy*cm CT Dose Reduction Employed: Automated exposure control(AEC) and iterative recon CONTRAST: IV administration of 90 ml Omnipaque 350 Scan acquisition was uncomplicated. Macro Version: [id number] For optimization of anatomic evaluation, advanced 3-D off-line postprocessing was performed on a dedicated workstation by the interpreting physician. STUDY LIMITATIONS: None. RESULT: LINES, TUBES and DEVICES: None visualized CHEST: Chest wall anatomy: unremarkable. visualized LUNGS: bibasilar atelectasis. visualized MEDIASTINUM: unremarkable. PERICARDIUM: unremarkable CENTRAL PULMONARY ARTERY: normal dimensions. Assessment is limited due to limited contrast enhancement. CARDIAC CHAMBERS: Chamber size may be underestimated in single-phase systolic acquisition. LEFT VENTRICLE: normal size. RIGHT VENTRICLE: normal size LEFT ATRIUM: dilated. JATINDER: normal. RIGHT ATRIUM: normal size CENTRAL VENOUS and PULMONARY VENOUS RETURN: normal. Coronary Sinus: normal size MITRAL VALVE: assessment is limited in the current study - no leaflet calcification. No annular calcification TRICUSPID and PULMONIC VALVE: appear unremarkable. PULMONARY VEINS: Major pulmonary veins are widely patent without evidence of pulmonary vein stenosis. Left sided veins originate from a common antrum. Right middle vein is a branch of the right superior vein RSPV (right superior): Normal; no luminal stenosis. No wall changes. RIPV (right inferior): Normal; no luminal stenosis. No wall changes. RMPV (right middle): Normal; no luminal stenosis. No wall changes. LSPV (left superior): Normal; no luminal stenosis. No wall changes. LIPV (left inferior): Normal; no luminal stenosis. No wall changes. CORONARY ANATOMY: normal origin of the coronary arteries. Calcified atherosclerotic changes of the coronary arteries, precluding precise assessment with CT. AORTIC VALVE: assessment is limited, appears trileaflet. No leaflet calcification. visualized AORTA: Pathology: No aortic pathology of the limited visualized segment of the aorta. Intervention: None Complications: n/a Aortic Size: Dilation aortic root. STJ: maintained Wall Changes: no evidence of wall changes. AORTIC DIMENSIONS: AORTIC ROOT: 4.1 cm measured [id number] mid ASCENDING THORACIC AORTA: 3.4 cm mid DESCENDING THORACIC AORTA: 2.7 cm limited upper ABDOMEN: unremarkable BONES and SOFT TISSUES: degenerative changes of the thoracic spine. Breakfast Bar Attendant (topogram) images: No additional findings. [facility] RAD[facility]OLOG[facility] * * *Final Report* * * DATE OF EXAM: Jan 02 2025 9:32AM [facility] [id number] - CT PULMONARY VEIN W IVCON / PROCEDURE REASON: Paroxysmal atrial fibrillation (HCC) * * * * Physician Interpretation * * * * Cardiac CTA of the Pulmonary Veins Direct Image Comparison: None HISTORY: 64 years old Male patient with chronic h/o atrial fibrillation The patient is evaluated for further treatment options, including PVI. There is request to define pulmonary vein anatomy. TECHNIQUE: SCANNER: Multi-detector scanner PROTOCOL: Sequential imaging of the heart with prospective triggering in systolic phase and 1.5 mm slice reconstruction was performed following the intravenous administration of contrast material. The scan range extended from maryellen to the base of the heart CT Dose-Length Product (DLP): 385.01 mGy*cm CT Dose Reduction Employed: Automated exposure control(AEC) and iterative recon CONTRAST: IV administration of 90 ml Omnipaque 350 Scan acquisition was uncomplicated. Macro Version: [id number] For optimization of anatomic evaluation, advanced 3-D off-line postprocessing was performed on a dedicated workstation by the interpreting physician. STUDY LIMITATIONS: None. RESULT: LINES, TUBES and DEVICES: None visualized CHEST: Chest wall anatomy: unremarkable. visualized LUNGS: bibasilar atelectasis. visualized MEDIASTINUM: unremarkable. PERICARDIUM: unremarkable CENTRAL PULMONARY ARTERY: normal dimensions. Assessment is limited due to limited contrast enhancement. CARDIAC CHAMBERS: Chamber size may be underestimated in single-phase systolic acquisition. LEFT VENTRICLE: normal size. RIGHT VENTRICLE: normal size LEFT ATRIUM: dilated. JATINDER: normal. RIGHT ATRIUM: normal size CENTRAL VENOUS and PULMONARY VENOUS RETURN: normal. Coronary Sinus: normal size MITRAL VALVE: assessment is limited in the current study - no leaflet calcification. No annular calcification TRICUSPID and PULMONIC VALVE: appear unremarkable. PULMONARY VEINS: Major pulmonary veins are widely patent without evidence of pulmonary vein stenosis. Left sided veins originate from a common antrum. Right middle vein is a branch of the right superior vein RSPV (right superior): Normal; no luminal stenosis. No wall changes. RIPV (right inferior): Normal; no luminal stenosis. No wall changes. RMPV (right middle): Normal; no luminal stenosis. No wall changes. LSPV (left superior): Normal; no luminal stenosis. No wall changes. LIPV (left inferior): Normal; no luminal stenosis. No wall changes. CORONARY ANATOMY: normal origin of the coronary arteries. Calcified atherosclerotic changes of the coronary arteries, precluding precise assessment with CT. AORTIC VALVE: assessment is limited, appears trileaflet. No leaflet calcification. visualized AORTA: Pathology: No aortic pathology of the limited visualized segment of the aorta. Intervention: None Complications: n/a Aortic Size: Dilation aortic root. STJ: maintained Wall Changes: no evidence of wall changes. AORTIC DIMENSIONS: AORTIC ROOT: 4.1 cm measured upeey-qn-yzimi mid ASCENDING THORACIC AORTA: 3.4 cm mid DESCENDING THORACIC AORTA: 2.7 cm limited upper ABDOMEN: unremarkable BONES and SOFT TISSUES: degenerative changes of the thoracic spine. Breakfast Bar Attendant (topogram) images: No additional findings. IMPRESSION IMPRESSION: WIDELY PATENT PULMONARY VEINS WITHOUT PULMONARY VEIN STENOSIS. No Evidence of JATINDER Thrombus Mildly dilated aortic root to 4.1 cm. Training Development Director: [facility] Transcribe Date/Time: Jan 02 2025 9:39A Dictated by : WALTER BYRNE MD This examination was interpreted and the report reviewed and electronically signed by: WALTER BYRNE MD on Jan 02 2025 10:22AM EST [facility] Radiology Study observation (narrative) [facility] CTA Pulmonary veins W contra st IVOrdered By: [facility]cf Provider on 01-02-2025 [facility] CNCOon 01-01-2025 CNCO Letter Text Normal [facility] CNOVon 12-30-2024 CNOV Office Visit (CEMMOB ) -- BRAVO FREEDMAN ([id number]) 1960 M Date Time Provider Department 12/30/24 1:00 PM COLLEEN CALDERON CEMMOB During your visit today, we recorded the following information about you: Pulse Blood pressure Weight 64/minute 116/61 138.8 kg Colleen Calderon, TANGELA 01/02/2025 6:36 PM Signed Heart, Vascular and Thoracic Jean Goldie Figueroa Department of Cardiovascular Medicine [facility] SECTION OF ELECTROPHYSIOLOGY OUTPATIENT VISIT DATE 12/30/2024 The patient consented to the use of ambient testbirds software for draft documentation of the visit consistent with [facility]?s Notice of Privacy Practices. PRIMARY CARE PHYSICIAN: Mary Landeros MD [address] [facility] [address] CHIEF COMPLAINT: Update HANDP for AF ablation with Dr. Rodriguez 01/05/25 HISTORY OF PRESENT ILLNESS: Mr. Freedman is a 64 year old male with a h/o abdominal aortic aneurysm s/p endovascular repair in 02/2024, paroxsymal atrial fibrillation diagnosed in 09/2022 s/p DCCV, COPD, NSTEMI with single vessel CAD s/p PCI/EAGLE to LCx 09/24/2018, chest pain, diabetes, GERD, hyperlipidemia, HTN, PVD, obesity, ORTIZ, SVT, and tobacco use. He was recently seen for initial outpatient EP consultation by Dr. Rodriguez on 10/30/2024 regarding SVT/AF management. At that time, he was experiencing symptom episodes associated with racing heart, chest pain, and fatigue about once a month lasting 15min to [address] Rodriguez reviewed treatment options at his visit in October including antiarrhythmics such as Sotalol, Tikosyn (these two require 3 day inpatient admission for loading and monitoring of QT intervals with a small group of patients who can also be intolerant to these medications) and Amiodarone (less desirable when other options are available due to its potential long-term side effects when used longer term- such as lung toxicity, inflammation of liver and thyroid). An AF ablation with ~1-2% serious procedural related complications such as cardiac perforation, needing emergency operation, bleeding, and very rarely were discussed. Informational brochure regarding AF ablation provided. He was to continue oral anticoagulation therapy. Additional, due to BMI >40, weight loss and lifestyle modifications were discussed. Risk factors for AF to avoid were also discussed. The indications and nature of Watchman were discussed with additional information provided for review. He presents today with his to update his HANDP prior to planned AF ablation with Dr. Rodriguez on 01/05/2025. Since his last visit on October 30, 2024, he reports an increase in the frequency of atrial fibrillation episodes, which now occur more frequently than once a month. These episodes vary in duration, lasting up to an hour, and resolve spontaneously. During these episodes, he experiences palpitations, dizziness, chest discomfort, and fatigue. He denies any new medical conditions or surgeries since his last visit and has not been hospitalized. He denies experiencing chest pain at rest, but notes dyspnea with minimal exertion, such as walking short distances. He denies dyspnea at rest or orthopnea and reports improved breathing with CPAP use at night. He denies any significant cough, fevers, or chills. He reports bilateral lower extremity edema, with the left side more affected than the right. The edema is typically below the knees, but can extend higher. He denies any bleeding issues, such as epistaxis or hematuria, and has not experienced lightheadedness or syncope unrelated to his atrial fibrillation episodes. He reports a good appetite, but notes a weight gain of approximately 35 pounds, with a current weight of 306 pounds. He describes his energy level as fair and reports sleeping well at night. He uses supplemental oxygen at 3 L/min during the day and 2 L/min at night, primarily when ambulating, driving, or sleeping. He uses a CPAP machine at night, but occasionally removes it during sleep. He is followed by a party plan sales unit advisor in [place] for his COPD. He is currently in the process of establishing care with a new primary care provider after his previous physician retired. He has known allergies to codeine, which causes migraines, and to Crestor and Lipitor, which cause leg cramps. His current medications include atorvastatin 80 mg once daily, magnesium 500 mg daily, metoprolol tartrate 50 mg BID, sertraline 50 mg in the morning, Eliquis 5 mg BID, pantoprazole 40 mg daily, losartan 25 mg BID, Coenzyme Q10 200 mg daily, vitamin D3, vitamin B6, alfuzosin 10 mg daily, amlodipine 10 mg at bedtime, vitamin C, aspirin 81 mg daily, furosemide 20 mg in the morning, isosorbide mononitrate 30 mg daily, Trulicity 0.75 mg once weekly, Spiriva inhaler 2 puffs once daily, Advair inhaler 1 p (more content not included)... Normal [facility] Creatinine and Glomerular fi ltration rate.predicted panel (S/P/Bld)on 12-30-2024 Creatinine [Mass/Vol] 1.40 mg/dL Normal 0.50-1.40 [facility] Comment on above: Order Comment: Venus carrillo Type: BLOOD SPECIMEN Ordering Facility: [facility] Address: [address] [place] [address] Result Comment: Rosa ents receiving either N-Acetylcysteine (NAC) or Metamizole prior to venipuncture, may have falsely depressed results. Performed By: #### L [id number], TSCR #### [facility] CLIA [id number] [address] [place] [address] [place] eGFRcr SerPlBld CKD-EPI 2020 56 mL/min/1.73m??? Low >=60 [facility] Comment on above: Order Comment: Venus carrillo Type: BLOOD SPECIMEN Ordering Facility: [facility] Address: [address] [place] [address] Result Comment: Rachana mated Glomerular Filtration Rate (eGFR) is calculated using the 2020 CKD-EPI creatinine equation. This equation utilizes serum creatinine, sex, and age as parameters. The creatinine assay has traceable calibration to isotope dilution-mass spectrometry. Refer to KDIGO guidelines for clinical interpretation. In patients with unstable renal function, e.g. those with acute kidney injury, the eGFR may not accurately reflect actual GFR. Performed By: #### L [id number], TSCR #### [facility] CLIA [id number] [address] [place] [address] OF [place] Dmitry 11-04-2024 ELIN Telephone (RUTHYMOB) -- BRAVO FREEDMAN ([id number]) 1960 M Date Time Provider Department 11/04/24 TIARA RODRIGUEZ During your visit today, we recorded the following information about you: Uzma Manriquez 11/04/2024 1:59 PM Signed Patient left a voicemail stating that he would like to go ahead with the ablation. Please call him back at [phone]. Jennifer Pelletier 11/06/2024 1:17 PM Signed Pt is calling back to let us know he wants to move forward w ablation Chepe Alan RN 11/07/2024 2:03 PM Signed Call returned to Guillermo at this time. He was informed that Dr. Rodriguez had provided orders for his CT PV and AF ablation. Once scheduled, he would be informed. Guillermo verbalized understanding and expressed appreciation for the call. Chepe Alan RN November 07, 2024 2:01 PM Cheep Alan RN 11/07/2024 3:12 PM Addendum Pt's , Steph, contacted at this time and informed that Bravo's AF ablation has been scheduled to be performed on Sunday01/05/2025. [facility] 0600. She was agreeable with the date and time. Pre-procedure instructions will be reviewed the week prior to the surgery. She was also informed that his CT PV has been scheduled to be performed on Sunday01/02/2025, arrival time about 0845 - to which she was also agreeable. She was offered, and was also agreeable to, an appointment with Colleen on Sunday12/30/2024 at 1300 for HANDP. She was encouraged to have Bravo's pre-procedure labs drawn on 10/30 while they were here at the hospital. She was encouraged to call back for any questions or concerns. She verbalized understanding of instructions and expressed appreciation for the call. Chepe Alan RN November 07, 2024 3:04 PM Allergies As of Date: 11/04/2024 Noted Allergy Reaction CODEINE 10/09/2006 Comments: Gives him a migraine CRESTOR (ROSUVASTATIN) 02/23/2024 5 - Intolerance Comments: Leg cramps LIPITOR (ATORVASTATIN) 02/23/2024 5 - Intolerance Comments: Leg cramps Date Reviewed: 10/30/2024 Reviewed by: Katya Nunes MA - Fully Assessed Reason for Visit: Patient Update [1234] Notification of scheduled AF ablation [Other] Primary Visit Diagnosis:Paroxysmal atrial fibrillation (HCC) [I48.0] Order(s):SURGICAL REQUEST - ELECTIVE (12/2019) [2177383] Order #: [id number]: 1 CT PULMONARY VEIN W IVCON [7001698] Order #: [id number] FUTURE iv contrast (will be provided with radiology test)CT Pulm Vein - No IV access, insert saline lock prior to the sedation, infusion, injection for imaging exam. Discontinue saline lock post exam. If Pt. has a central line or IVAD, may access for administration according to line specific nursing protocol. Once exam is complete flush line and de-access according to line specific nursing protocol in the CT contrast administration guidelines link.Disp: 1 eachRfl: 0 CREATININE BLD [SQCRET] Order #: [id number] FUTURE Prescriptions as of 11/07/2024 - iv contrast (will be provided with radiology test) CT Pulm Vein - No IV access, insert saline lock prior to the sedation, infusion, injection for imaging exam. Discontinue saline lock post exam. If Pt. has a central line or IVAD, may access for administration according to line specific nursing protocol. Once exam is complete flush line and de-access according to line specific nursing protocol in the CT contrast administration guidelines link. - ELIQUIS 5 mg tab(s) Take 5 mg by mouth two times a day. - TRULICITY 0.75 mg/0.5 mL pen injector Inject 0.75 mg subcutaneously one time a week. - furosemide (LASIX) 20 mg tablet Take 1 tablet by mouth once daily. - sertraline (ZOLOFT) 50 mg tablet Take 50 mg by mouth every morning. - SPIRIVA RESPIMAT 2.5 mcg/actuation inhaler Inhale 2 puffs as instructed once daily. - fluticasone-salmeterol (ADVAIR) 500-50 mcg/dose dsdv Inhale 1 puff as instructed two times a day. - isosorbide mononitrate ER (IMDUR) 30 mg 24 hr tablet Take 1 tablet by mouth once daily. - Cholecalciferol, Vitamin D3, 125 mcg (5,000 unit) cap Take 1 capsule by mouth once daily. - albuterol HFA (PROVENTIL HFA, VENTOLIN HFA) 90 mcg/actuation inhaler Inhale 1 puff as instructed every 4 hours as needed for wheezing/shortness of breath. - amLODIPine (NORVASC) 10 mg tablet Take 10 mg by mouth daily at bedtime. - aspirin, enteric coated (ASPIRIN, ENTERIC COATED) 81 mg EC tablet Take 1 tablet by mouth once daily. - alfuzosin SR (UROXATRAL) 10 mg 24 hr tablet Take 10 mg by mouth once daily. - atorvastatin (LIPITOR) 80 mg tablet Take 80 mg by mouth once daily. - losartan (COZAAR) 25 mg tablet Take 25 mg by mouth two times a day. - metoprolol tartrate, short acting, (LOPRESSOR) 50 mg tablet Take 50 mg by mouth two times a day. - pantoprazole DR (PROTONIX) 40 mg tablet Take 40 mg by mouth once daily. - omega-3s/dha/epa/fish oil/D3 (more content not included)... Normal [facility] PROTEIN ELECTROPHORESIS UR W / TEOFILO [CCL]on 10-31-2024 Albumin 44.39 % Normal [facility] Comment on above: Performed By: #### 2 [id number] #### [address] [address] Alpha 1 Globulin 6.19 % Normal [facility] Comment on above: Performed By: #### 2 [id number] #### [address] [address] Alpha 2 Globulin 16.63 % Normal [facility] Comment on above: Performed By: #### 2 72195 #### [facility],[address] [place] [address] Beta Globulin 20.89 % Normal [facility] Comment on above: Performed By: #### 2 52130 #### [facility],[address] [place] [address] Comment Monoclonal Protein analysis (immunofixation) is not indicated. Normal [facility] Comment on above: Result Comment: [facility] [address] [place] [address] Diomedes Eric III, M.D. [id number] Performed By: #### 2 13762 #### [place] [address] Gamma Globulin 11.90 % Normal [facility] Comment on above: Performed By: #### 2 60763 #### [facility],[address] [place], [place] [id number] Interpretation No definitive M prot ein is identified on protein electrophoresis. Normal No definitive M protein i [facility] Comment on above: Performed By: #### 2 [address]6566 #### [place] [id number] Protein (U) [Mass/Vol] 5 mg/dL Normal 0-20 [facility] Comment on above: Performed By: #### 2 40615 #### [place] [id number] Staff Review Reviewed by Cindy Delgado M.D., Ph.D Normal [facility] Comment on above: Performed By: #### 2 [id number] #### [place] [id number] CNOVon 10-30-2024 CNOV Office Visit (CEMMOB ) -- BRAVO FREEDMAN ([id number]) 1960 M Date Time Provider Department 10/30/24 2:00 PM TIARA RODRIGUEZ CEMMOB During your visit today, we recorded the following information about you: Pulse Blood pressure Weight Height 57/minute 134/70 122.2 kg 1.753 m Tiara Rodriguez MD 10/30/2024 2:59 PM Signed Heart and Vascular Jean Goldie Figueroa Department of Cardiovascular Medicine SECTION OF CARDIAC PACING and ELECTROPHYSIOLOGY OUTPATIENT VISIT DATE October 30, 2024 OUTPATIENT VISIT TYPE NEW PRIMARY CARE PHYSICIAN: Graham Priest (Tito) [address] [place] [address] REFERRING PHYSICIAN: No referring provider defined for this encounter. CHIEF COMPLAINT: Palpitations once a month HISTORY OF PRESENT ILLNESS: Mr. Freedman is a 64 year old male who presents today to review management of his SVT/AF. Has a history of pAF with initial diagnosis of it in September 2022 DCCV- symptoms of racing heart, chest pain, tired. In the recent times, episodes about once a month variable duration from 15mins to up to 3 hours. No syncope, but dizziness. History of CAD with prior LA s/p PCI to Lcx in 2019 - no recurrence of angina. PAST CARDIAC HISTORY: PAST MEDICAL HISTORY Diagnosis Date Atrial fibrillation ([facility]) DR ELISE COPD (chronic obstructive pulmonary disease) ([facility]) PCP Coronary artery disease Diabetes ([facility]) PCP gerd MED CONTROLLED Heart attack ([facility]) DR ELISE -HE HAD LA 2019 High cholesterol MED CONTROLLED Hypertension MED CONTROLLED Infrarenal abdominal aortic aneurysm (AAA) without rupture Peripheral vascular disease DR STILES Sleep apnea CPAP 02 - 2 L/MIN AT SLEEP STUDY [place] PAST SURGICAL HISTORY Procedure Laterality Date APPENDECTOMY 1975 CARDIOVERSION x7 HEART CATHETERIZATION jacquelin PAST SURGICAL HISTORY OF both thumbs for infection a year apart PAST SURGICAL HISTORY OF 2019 STENTS X 1 - CAD ANGIOPLASTY = 2019 SOCIAL HISTORY Social History Tobacco Use Smoking status: Former Average packs/day: 0.5 packs/day for 30.0 years (15.0 ttl pk-yrs) Types: Cigarettes Start date: 1988 Passive exposure: Past Smokeless tobacco: Never Tobacco comments: STARTED SMOKING TEENS ,QUIT SMOKING 2019 - 1.5 PACK A DAY Substance Use Topics Alcohol use: Yes Alcohol/week: 36.0 standard drinks of alcohol Types: 36 Cans of beer per week Comment: few beers daily-4 Drug use: Yes Frequency: 7.0 times per week Comment: marijuana.-SMOKES FAMILY HISTORY Problem Relation Age of Onset Cancer Father liver- drank alot ALLERGIES: ALLERGIES Allergen Reactions Codeine Gives him a migraine Crestor [Rosuvastat* Intolerance Leg cramps Lipitor [Atorvastat* Intolerance Leg cramps MEDICATIONS: ELIQUIS 5 mg tab(s) Take 5 mg by mouth two times a day. TRULICITY 0.75 mg/0.5 mL pen injector Inject 0.75 mg subcutaneously one time a week. furosemide (LASIX) 20 mg tablet Take 1 tablet by mouth once daily. sertraline (ZOLOFT) 50 mg tablet Take 50 mg by mouth every morning. SPIRIVA RESPIMAT 2.5 mcg/actuation inhaler Inhale 2 puffs as instructed once daily. fluticasone-salmeterol (ADVAIR) 500-50 mcg/dose dsdv Inhale 1 puff as instructed two times a day. isosorbide mononitrate ER (IMDUR) 30 mg 24 hr tablet Take 1 tablet by mouth once daily. Cholecalciferol, Vitamin D3, 125 mcg (5,000 unit) cap Take 1 capsule by mouth once daily. albuterol HFA (PROVENTIL HFA, VENTOLIN HFA) 90 mcg/actuation inhaler Inhale 1 puff as instructed every 4 hours as needed for wheezing/shortness of breath. amLODIPine (NORVASC) 10 mg tablet Take 10 mg by mouth daily at bedtime. aspirin, enteric coated (ASPIRIN, ENTERIC COATED) 81 mg EC tablet Take 1 tablet by mouth once daily. alfuzosin SR (UROXATRAL) 10 mg 24 hr tablet Take 10 mg by mouth once daily. atorvastatin (LIPITOR) 80 mg tablet Take 80 mg by mouth once daily. losartan (COZAAR) 25 mg tablet Take 25 mg by mouth two times a day. metoprolol tartrate, short acting, (LOPRESSOR) 50 mg tablet Take 50 mg by mouth two times a day. pantoprazole DR (PROTONIX) 40 mg tablet Take 40 mg by mouth once daily. omega-3s/dha/epa/fish oil/D3 (VITAMIN-D + OMEGA-3 ORAL) Take 125 mg by mouth once daily. LD 02/18/24 Coenzyme Q10 (CO Q-10) 200 mg cap Take 200 mg by mouth once daily. ascorbic acid, vitamin C, (VITAMIN C) 500 mg tablet Take 1,000 mg by mouth once daily. Magnesium 250 mg tab Take 500 mg by mouth once daily. pyridoxine, vitamin B6, (VITAMIN B-6) 100 mg tablet Take 100 mg by mouth once daily. OXYGEN, HOME THERAPY, Inhale 2 L/min as instructed daily at bedtime. WITH CPAP Taking Apixaban 5mg BID PHYSICAL EXAMINATION: BP 134/70 (BP Site: Left Arm, BP Position: Sitting, BP Cuff Size: Regular Adult) Pulse (!) 57 Ht 175.3 cm (5' 9) Wt 1 (more content not included)... Normal [facility] Prot Ur-mCncon 10-29-2024 Protein (U) [Mass/Vol] 5 mg/dL Normal 0-20 [facility] Comment on above: Order Comment: Speci men Type: URINE SPECIMEN Ordering Facility: [facility] Address: [place] [address] Performed By: #### 2 [id number] #### [facility] CLIA [id number] [address] [place] [address] [place] URINE PROTEIN ELECTROPHORESI S WITH TEOFILO (P)on 10-29-2024 Albumin Elph (U) [Mass fraction] 44.39 % Normal [facility] Comment on above: Order Comment: Speci men Type: URINE SPECIMEN Ordering Facility: [facility] Address: [address] [place] [address] Performed By: #### L [id number] #### [facility] CLIA [id number] [address] [place] [address] [place] Alpha 1 globulin Elph (U) [Mass fraction] 6.19 % Normal [facility] Comment on above: Order Comment: Speci men Type: URINE SPECIMEN Ordering Facility: [facility] Address: [place] [address] Performed By: #### L [id number] #### [facility] CLIA [id number] [address] [place] [address] [place] Alpha 2 globulin Elph (U) [Mass fraction] 16.63 % Normal [facility] Comment on above: Order Comment: Speci men Type: URINE SPECIMEN Ordering Facility: [facility] Address: [facility] [place] [address] Performed By: #### L [id number] #### [facility] CLIA [id number] [address] [place] [address] [place] Beta globulin Elph (U) [Mass fraction] 20.89 % Normal [facility] Comment on above: Order Comment: Speci men Type: URINE SPECIMEN Ordering Facility: [facility] Address: [address] [place] [address] Performed By: #### L [id number] #### [facility] CLIA [id number] [facility] [place] [id number] [place] [facility] COMMENT (URINE PROT ELECTRO) Monoclonal Protein analysis (immunofixation) is not indicated. Normal [facility] Comment on above: Order Comment: Speci men Type: URINE SPECIMEN Ordering Facility: [facility] Address: [address] [place] [address] Performed By: #### L [id number] #### [facility] CLIA [id number] [address] [place] [address] STATES [facility] Gamma globulin Elph (U) [Mass fraction] 11.90 % Normal [facility] Comment on above: Order Comment: Speci men Type: URINE SPECIMEN Ordering Facility: [facility] Address: [address] [place] [address] Performed By: #### L [id number] #### [facility] CLIA [id number] [address] [place], [place] [id number] [place] Protein Fractions Elph Hasmukh (U) [Interp] No definitive M protein is identified on protein electrophoresis. Normal No definitive M protein is identified on protein electrophore sis. [facility] Comment on above: Order Comment: Speci men Type: URINE SPECIMEN Ordering Facility: [facility] Address: [address] [place] [address] Performed By: #### L [id number] #### [facility] CLIA [id number] [facility] [place] [id number] [place] STAFF REVIEW (URINE ELECTRO) Reviewed by Cindy Delgado M.D., Ph.D Normal [facility] Comment on above: Order Comment: Speci men Type: URINE SPECIMEN Ordering Facility: [facility] Address: [address] [place] [address] Performed By: #### L [id number] #### [facility] CLIA [id number] [address] [place] [address] PROTEIN ELECTROPHORESIS UR W / TEOFILO [CCL]on 10-28-2024 Protein Urine Random <4 Normal 0-20 [facility] Comment on above: Result Comment: [facility] [address] [place] [address] Diomedes Eric III, M.D. [id number] Performed By: #### 2 05674 #### [facility],[address] [place], [place] [address] PROTEIN ELECTROPHORESIS , SE RUM [CCL]on 10-27-2024 Albumin [Mass/Vol] 3.90 g/dL Normal 3.43-5.41 [facility] Comment on above: Performed By: #### 2 02237 #### [facility],[address] [place] [address] Alpha 1 Globulin 0.25 g/dL Normal 0.18-0.43 [facility] Comment on above: Performed By: #### 2 88353 #### [facility],[address] [place], [place] [id number] Alpha 2 Globulin 0.68 g/dL Normal 0.42-0.98 [facility] Comment on above: Performed By: #### 2 80189 #### [facility],[address] [place], [place] [id number] Beta Globulin 0.81 g/dL Normal 0.61-1.17 [facility] Comment on above: Performed By: #### 2 85009 #### [facility],[address] [place] [address] Gamma Globulin 0.65 g/dL Normal 0.53-1.51 [facility] Comment on above: Performed By: #### 2 75258 #### [facility],[address] [place] [address] Interpretation No definitive M prot ein is identified on protein electrophoresis. Normal No definitive M protein i [facility] Comment on above: Performed By: #### 2 62055 #### [facility],[address] [place] [address] M Protein Location See Below Normal [facility] Comment on above: Result Comment: Not Applicable. Performed By: #### 2 34457 #### [facility],[address] [place] [address] M-Protein Concentration 0.00 g/dL Normal <=0.00 [facility] Comment on above: Performed By: #### 2 68985 #### [facility],[address] [place] [address] Protein [Mass/Vol] 6.3 g/dL Normal 6.3-8.0 [facility] Comment on above: Performed By: #### 2 93377 #### [facility],[address] [place] [address] SPE Staff Review Reviewed by Dr. Rajendra Grigsby MD [facility] Comment on above: Result Comment: Seru m electrophoresis test was performed using the S3Bubble V8 NEXUS capillary electrophoresis method. Results obtained with different assay methods or kits cannot be used interchangeably. [facility] [address] [place] [address] Diomedes Eric III, M.D. [id number] Performed By: #### 2 04561 #### [facility],[address] [place] [address] TEOFILO SCREEN, SERUM [CCL]on MPA Result No M protein is identified. Normal No M protein is identifie [facility] Comment on above: Performed By: #### 2 40883 #### [facility],[address] [place] [address] Staff Review Reviewed by Dr. Rajendra Grigsby MD [facility] Comment on above: Result Comment: [facility] [address] [place] [address] Diomedes Eric III, M.D. [id number] Performed By: #### 2 04157 #### [facility],[address] [place] [address] PTH, INTACT [CCL]on 10-25-19 25 PTH, Intact 51 pg/mL Normal 15-65 [facility] Comment on above: Result Comment: [facility] [address] [place] [address] Diomedes Eric III, M.D. [id number] Performed By: #### 2 34178 #### [facility],[address] [place] [address] 92299 BMP with eGFRon 10-23-2024 AGE 64 years Normal [facility] Comment on above: Performed By: #### 2 62338 #### [facility],[address] [place] [address] Anion gap [Moles/Vol] 12 mmol/L Normal 10 - 20 [facility] Comment on above: Performed By: #### 2 70258 #### [facility],[address] [place] [address] 77123 BMP with eGFR Normal [facility] Comment on above: Result Comment: BASI C METABOLIC PANEL Performed By: #### 2 14503 #### [facility],[address] [place] [address] Calcium [Mass/Vol] 9.0 mg/dL Normal 8.5 - 10.1 [facility] Comment on above: Performed By: #### 2 67901 #### [address],[place] [address] Chloride [Moles/Vol] 102 mmol/L Normal 98 - 107 [facility] Comment on above: Performed By: #### 2 84500 #### [facility],[address] [place] [address] 12710 CO2 [Moles/Vol] 28.8 mmol/L Normal 21.0 - 32.0 [facility] Comment on above: Performed By: #### 2 72634 #### [facility],[address] [place] [address]3553 Creatinine [Mass/Vol] 1.42 mg/dL High 0.70 - 1.30 [facility] Comment on above: Performed By: #### 2 60629 #### [facility],[address] [place] [address] 51471 eGFR 50 ML/MINUTE Low 60 - 999 [facility] Comment on above: Performed By: #### 2 56018 #### [address] [address] GFR/1.73 sq M.predicted among non-blacks MDRD (S/P/Bld) [Vol rate/Area] mL/min/{1.73_m2} Normal 60 - 999 [facility] Comment on above: Result Comment: ACCO RDING TO THE NATIONAL KIDNEY DISEASE EDUCATION PROGRAM(NKDE), A NORMAL eGFR IS A VALUE GREATER THAN OR EQUAL TO 60 ML/MIN/1.73 SQ METERS. CHRONIC KIDNEY DISEASE: <60mL/MIN/1.73 SQ METERS KIDNEY FAILURE: <15mL/MIN/1.73 SQ METERS THIS TEST SHOULD ONLY BE USED FOR PATIENTS 18 YEARS OF AGE AND OLDER. Performed By: #### 2 50753 #### [facility],[address] [place] [address] Glucose [Mass/Vol] 126 mg/dL High 74 - 106 [facility] Comment on above: Performed By: #### 2 68828 #### [address] [address] Potassium [Moles/Vol] 4.3 mmol/L Normal 3.5 - 5.1 [facility] Comment on above: Performed By: #### 2 67782 #### [facility],[address] [place] [address] 19094 Sodium [Moles/Vol] 138 mmol/L Normal 136 - 145 [facility] Comment on above: Performed By: #### 2 70343 #### [facility],[address] [place] [address] Urea nitrogen [Mass/Vol] 23 mg/dL High 7 - 18 [facility] Comment on above: Performed By: #### 2 12176 #### [facility],[address] [place] [address] CBC + DIFFon 10-23-2024 Baso # 0.05 x10EE3/UL Normal 0.00 - 0.10 [facility] Comment on above: Performed By: #### 2 29117 #### [facility],[address] [place] [address] Basophils/100 WBC (Bld) 0.7 % Normal 0.0 - 2.0 [facility] Comment on above: Performed By: #### 2 14765 #### [facility],[address] [place] [address] CBC + DIFF Normal [facility] Comment on above: Result Comment: CBC- COMPLETE BLOOD COUNT Performed By: #### 2 79237 #### [facility],[address] [place] [address] EO # 0.20 x10EE3/UL Normal 0.00 - 0.50 [facility] Comment on above: Performed By: #### 2 45351 #### [facility],[address] [place] [address] Eosinophils/100 WBC (Bld) 3.3 % Normal 0.0 - 7.0 [facility] Comment on above: Performed By: #### 2 77351 #### [facility],[address] [place], [place] [address] Erythrocyte distribution width (RBC) [Ratio] 15.2 % Normal 12.0 - 15.6 [facility] Comment on above: Performed By: #### 2 97724 #### [facility],[address] [place] [address] Hematocrit (Bld) [Volume fraction] 39.4 % Low 40.0 - 52.0 [facility] Comment on above: Performed By: #### 2 34591 #### [facility],[address] [place] [address] Hemoglobin (Bld) [Mass/Vol] 13.6 g/dL Normal 13.0 - 17.5 [facility] Comment on above: Performed By: #### 2 27649 #### [facility],[address] [place] [address] Lymph # 1.53 x10EE3/UL Normal 0.80 - 2.80 [facility] Comment on above: Performed By: #### 2 96268 #### [facility],[address] [place], [place] [address] Lymphocytes/100 WBC (Bld) 24.4 % Normal 20.0 - 45.0 [facility] Comment on above: Performed By: #### 2 38167 #### [facility],[address] [place], [place] [address] MANUAL DIFF N/A Normal [facility] Comment on above: Performed By: #### 2 06184 #### [facility],[address] [place] [address]36[address] MCH (RBC) [Entitic mass] 32 pg Normal 27 - 33 [facility] Comment on above: Performed By: #### 2 39832 #### [facility],[address] [place] [address] MCHC 34 X10 3 Normal 32 - 36 [facility] Comment on above: Performed By: #### 2 59898 #### [facility],[address] [place] [address] 42675 MCV (RBC) [Entitic vol] 92 fL Normal 81 - 98 [facility] Comment on above: Performed By: #### 2 51702 #### [facility],[address] [place] [address]71 [place] # 0.46 x10EE3/UL Normal 0.20 - 1.00 [facility] Comment on above: Performed By: #### 2 69114 #### [facility],[address] [place] [address] 97167 MONOS % 7.4 % Normal 0.0 - 10.0 [facility] Comment on above: Performed By: #### 2 89172 #### [facility],[address] [place] [address] Morphology Hasmukh (Bld) [Interp] N/A Normal [facility] Comment on above: Performed By: #### 2 26642 #### [facility],[address] [place] [address] Neut # 4.01 x10EE3/UL Normal 1.50 - 7.10 [facility] Comment on above: Performed By: #### 2 23710 #### [facility],[address] [place] [address] 22450 Neutrophils/100 WBC (Bld) 64.2 % Normal 46.0 - 76.0 [facility] Comment on above: Performed By: #### 2 36274 #### [facility],[address] [place] [address] 95[address] PLATELET 218 x10EE3/UL Normal 150 - 450 [facility] Comment on above: Performed By: #### 2 27925 #### [facility],[address] [place] [address] 55238 Platelet mean volume (Bld) [Entitic vol] 7.9 fL Normal 6.4 - 10.5 [facility] Comment on above: Result Comment: AUTO MATED DIFFERENTIAL Performed By: #### 2 87632 #### [facility],[address] [place] [address] 15350 RBC 4.28 x 10EE6/UL Low 4.50 - 6.00 [facility] Comment on above: Performed By: #### 2 20668 #### [facility],[address] [place] [address] 07063 WBC 6.3 x 10EE3/UL Normal 4.5 - 10.8 [facility] Comment on above: Performed By: #### 2 33333 #### [facility],[address] [place] [address] FERRITIN [CCL]on 10-23-2024 Ferritin [Mass/Vol] 94.0 ng/mL Normal 30.3-565.7 [facility] Comment on above: Result Comment: [place] [address] Diomedes Eric III, M.D. [id number] Performed By: #### 2 11159 #### [facility],[address] [place] [address]40[address] Ferritin SerPl-mCncon 2024 Ferritin [Mass/Vol] 94.0 ng/mL Normal 30.3-565.7 [facility] Comment on above: Order Comment: Speci men Type: BLOOD SPECIMEN Ordering Facility: [facility] Address: [address] [place] [address] Performed By: #### 2 276-4 #### [facility] CLIA [id number] [address] [place] [address] [place] [facility] IMMUNOFIXATION SCREEN, SERUM on 10-23-2024 MPA RESULT No M protein is identified. Normal No M protein is identified. [facility] Comment on above: Order Comment: Speci men Type: BLOOD SPECIMEN Ordering Facility: [facility] Address: [address] [place] [address] Performed By: #### I [facility] #### [facility] CLIA [id number] [facility] [place] [address] [place] STAFF REVIEW (MPA) Reviewed by Dr. Rajendra Grigsby MD Normal [facility] Comment on above: Order Comment: Speci men Type: BLOOD SPECIMEN Ordering Facility: [facility] Address: [address] [place] [address] Performed By: #### I FESC #### [facility] CLIA [id number] [address] [place] [address] [place] IRON AND TIBCon 10-23-2024 %SATURATION 15 % Normal [facility] Comment on above: Performed By: #### 2 74196 #### [facility],[address] [place] [address] 22036 Iron [Mass/Vol] 61 ug/dL Low 65 - 175 [facility] Comment on above: Performed By: #### 2 70513 #### [facility],[address] [place] [address] 69495 TIBC 417 ug/dl Normal 250 - 450 [facility] Comment on above: Performed By: #### 2 95657 #### [facility],[address] [place] [address] 77180 UIBC 356 ug/dL High 155 - 355 [facility] Comment on above: Performed By: #### 2 88168 #### [facility],[address] [place] [address] PROTEIN ELECTROPHORESIS SERU M (P)on 10-23-2024 Albumin [Mass/Vol] 3.90 g/dL Normal 3.43-5.41 [facility] Comment on above: Order Comment: Speci men Type: BLOOD SPECIMEN Ordering Facility: [facility] Address: [address] [place] [address] Performed By: #### L [id number] #### [facility] CLIA [id number] [address] [place] [address] [place] Alpha 1 globulin Elph [Mass/Vol] 0.25 g/dL Normal 0.18-0.43 [facility] Comment on above: Order Comment: Speci men Type: BLOOD SPECIMEN Ordering Facility: [facility] Address: [address] [place] [address] Performed By: #### L [id number] #### [facility] CLIA [id number] [address] [place] [address] [place] Alpha 2 globulin Elph [Mass/Vol] 0.68 g/dL Normal 0.42-0.98 [facility] Comment on above: Order Comment: Speci men Type: BLOOD SPECIMEN Ordering Facility: [facility] Address: [address] [place] [address] Performed By: #### L [id number] #### [facility] CLIA [id number] [address] [place] [address] [place] Beta globulin Elph [Mass/Vol] 0.81 g/dL Normal 0.61-1.17 [facility] Comment on above: Order Comment: Speci men Type: BLOOD SPECIMEN Ordering Facility: [facility] Address: [address] [place] [address] Performed By: #### L [id number] #### [facility] CLIA [id number] [address] [place] [address] [place] Gamma globulin Elph [Mass/Vol] 0.65 g/dL Normal 0.53-1.51 [facility] Comment on above: Order Comment: Speci men Type: BLOOD SPECIMEN Ordering Facility: [facility] Address: [address] [place] [address] Performed By: #### L [id number] #### [facility] CLIA [id number] [address] [place] [address] [place] M-PROTEIN LOCATION Normal [facility] Comment on above: Order Comment: Speci men Type: BLOOD SPECIMEN Ordering Facility: [facility] Address: [address], [place] [address] Result Comment: Not Applicable. Performed By: #### L [id number] #### [facility] CLIA [id number] [address] [place] [address] [place] Protein Fractions [Interp] No definitive M protein is identified on protein electrophoresis. Normal No definitive M protein is identified on protein electrophore sis. [facility] Comment on above: Order Comment: Speci men Type: BLOOD SPECIMEN Ordering Facility: [facility] Address: [address] [place] [address] Performed By: #### L [id number] #### [facility] CLIA [id number] [address] [place] [address] [place] Protein.monoclonal Elph [Mass/Vol] 0.00 g/dL Normal <=0.00 [facility] Comment on above: Order Comment: Speci men Type: BLOOD SPECIMEN Ordering Facility: [facility] Address: [address] [place] [address] Performed By: #### L [id number] #### [facility] CLIA [id number] [address] [place] [address] [place] SPE STAFF REVIEW Reviewed by Dr. Rajendra Grigsby MD Normal [facility] Comment on above: Order Comment: Speci men Type: BLOOD SPECIMEN Ordering Facility: [facility] Address: [address] [place] [address] Performed By: #### L [id number] #### [facility] CLIA [id number] [address] [place] [address] [place] PTH-Intact [facility] 06- Parathyrin.intact [Mass/Vol] 51 pg/mL Normal 15-65 [facility] Comment on above: Order Comment: Speci men Type: BLOOD SPECIMEN Ordering Facility: [facility] Address: [address] [place] [address] Performed By: #### 2 731-8 #### [facility] CLIA [id number] [address] [place] [address] [place] Prot SerPl-mCncon 10-23-2024 Protein [Mass/Vol] 6.3 g/dL Normal 6.3-8.0 [facility] Comment on above: Order Comment: Speci men Type: BLOOD SPECIMEN Ordering Facility: [facility] Address: [address] [place] [address] Performed By: #### 2 885-2 #### [facility] CLIA [id number] [address] [place] [address] [place] Prot Ur-mCncon 10-23-2024 Protein (U) [Mass/Vol] mg/dL Normal 0-20 [facility] Comment on above: Order Comment: Speci men Type: URINE SPECIMEN Ordering Facility: [facility] Address: [address] [place] [address] Performed By: #### 2 888-6 #### [facility] CLIA [id number] [address] [place] [address] [place] URIC ACIDon 10-23-2024 Urate [Mass/Vol] 5.1 mg/dL Normal 3.5 - 7.2 [facility] Comment on above: Performed By: #### 2 63808 #### [facility],[address] [place] [address] 39716 URINE CREATININE AND PROTEIN RATIOon 10-23-2024 CREATININE UR <13.00 Normal [facility] Comment on above: Performed By: #### 2 33402 #### [facility],[address] [place] [address] 13632 PC RATIO 0.36 mg/dL Normal 0.00 - 10.00 [facility] Comment on above: Performed By: #### 2 06765 #### [facility],[address] [place] [address] 97442 URINE TOTAL PROTEIN <6.00 Normal 0.00 - 10.00 [facility] Comment on above: Performed By: #### 2 50312 #### [facility],[address] [place] [address] 63216 VITAMIN D, 25 HYDROXYon 10-12 VitD 64.00 ng/mL Normal 30.00 - 100 [facility] Comment on above: Result Comment: 25-O HD3 indicates both endogenous production and supplementation. 25-OHD2 is an indicator of exogenous sources, such as diet or supplementation. Therapy is based on measurement of Total 25-OHD, with levels <20 ng/mL indicative of Vitamin D deficiency, while levels between 20 ng/mL and 30 ng/mL suggest insufficiency. Optimal levels are >=30ng/mL. Vitamin D, 25-OH D3 Not Established Vitamin D, 25-OH D2 Not Established Performed By: #### 2 19561 #### [facility],[address] [place] [address] 86853 Cardiology Visit Reporton Cardiology Visit Report [facility] [address] [place] [address] OFFICE VISIT Date of Service: 10/22/24 MR#: [id number] Acct: [id number] Name: BRAVO FREEDMAN Rep #: [id number] : 1960 Provider: CHIDI murcia Age/Sex: 64/M Location: [facility] [place] Status: Signed HPI HPI History of Present Illness Details: The patient is a 64 year old white male who presents to the office today for a cardiovascular follow up visit. He has a history of CAD, status post successful PCI of the mid circumflex artery following cardiac catheterization in September 2018. He also has a history of paroxysmal atrial fibrillation, hyperlipidemia, hypertension, diabetes, and obesity. He was a previous tobacco user. He had presented to the emergency room in September 2022 with chest discomfort he was noted to be in atrial fibrillation with a rapid ventricular response rate and he underwent DC cardioversion. He had been doing quite well but most recently he says that he has been under fair amount of stress due to family issues. He presented to the emergency room on November 28, 2023 with palpitations and a rapid narrow complex tachycardia with an EKG capturing it at a rate of 165 bpm. He was administered 6 mg and then 12 mg of adenosine with conversion to sinus rhythm. He presents for a follow-up visit. His last echocardiogram was from April 2022 demonstrating an ejection fraction of 65% with focal mitral valve calcification of the posterior leaflet. He did have a stress echo in 2019 which demonstrated no evidence of ischemia. He is status post AAA repair in February 2024, with Dr. Stiles. He denies chest, arm, jaw, or neck discomfort. He states episode of palpitations lasting upwards to 15 minutes and one hour. He denies bilateral lower extremity edema. He denies claudication. He states shortness of breath with activity. He denies shortness of breath at rest or PND. He acknowledges orthopnea. He denies chronic cough. He denies significant, sudden weight gain. He denies lightheadedness, dizziness, near-syncope, or syncope. He denies blood in urine, blood in stool, or epistaxis. He denies fever with chills. He denies myalgia. He denies fatigue. He acknowledges nausea associated with his palpitations. His exercise level has remained stable. Intake Vital Signs 06/13/24 14:51 09/24/24 06:32 10/22/24 09:20 Height 5 ft 9 in 5 ft 9 in 5 ft 9 in Weight: 297 lb BMI 43.8 BP 120/73 Blood Pressure Location Lt brachial Position Sitting Respiration 20 H Pulse 67 Pulse Source NIBP Pulse Oximetry (%) 90 Oxygen Delivery Method nasal canula Oxygen Flow Rate (L/min) 3 Intake Visit Reasons: 6 M FU [employer] Required: No Is patient in pain?: No Allergies rosuvastatin (From [employer]) Adverse Reaction (Severe, Verified 10/22/24 09:25) Severe myalgias (legs) codeine Adverse Reaction (Verified 10/22/24 09:25) Other Medications ???Medication ???Instructions ???Recorded ???Confirmed ???Type aspirin 81 mg tablet,delayed 81 mg PO DAILY@0800 heart health 0 09/25/18 10/22/24 Rx release atorvastatin 80 mg tablet 80 mg PO DAILY cholesterol 0 10/22/24 History ascorbic acid (vitamin C) 500 mg 500 mg PO DAILY vitamin 11/13/19 0 10/22/24 History capsule,extended release losartan 25 mg tablet 25 mg PO BID blood pressure #180 0 11/22/21 10/22/24 Rx tabs albuterol sulfate 90 mcg/actuation 2 puff inhalation Q4H PRN PRN 10/22/24 Rx aerosol inhaler (Ventolin HFA) Wheezing #8.5 grams pantoprazole 40 mg tablet,delayed 40 mg PO DAILY reflux 03/31/22 History release alfuzosin 10 mg tablet,extended 10 mg PO DAILY prostate 02/13/23 0 10/22/24 History release 24 hr metoprolol tartrate 50 mg tablet 50 mg PO BID blood pressure #60 10/22/24 Rx tabs blood sugar diagnostic (Accu-Chek 11/28/23 09/24/24 History Guide test strips) lancets (Accu-Chek Softclix 11/28/23 09/24/24 History Lancets) cholecalciferol (vitamin D3) 125 125 mcg PO QDAY vitamin 12/07/23 0 10/22/24 History mcg (5,000 unit) capsule coenzyme Q10 200 mg capsule (Co 200 mg PO DAILY supplement 4 10/22/24 History Q-10) magnesium 250 mg tablet 500 mg PO QDAY supplement 03/07/24 10/22/24 History amlodipine 10 mg tablet 10 mg PO DAILY #90 tabs 04/16/24 0 10/22/24 Rx furosemide 20 mg tablet (Lasix) 20 mg PO DAILY #90 tabs 04/16/24 0 10/22/24 Rx guaifenesin 1,200 mg tablet, 1,200 mg PO BID #20 tabs 04/16/24 10/22/24 Rx extended release 12 hr (Mucus Relief ER) albuterol sulfate 0.63 mg/3 mL 0.63 mg inhalation TID PRN 4 10/22/24 History solution for nebulization isosorbide mononitrate 30 mg 30 mg PO DAILY #30 tabs 04/25/24 0 10/22/24 Rx tablet,extended release 24 hr pyridoxine (vitamin B6) 100 m (more content not included)... Normal [facility] PSA, FREE [CCL]on 10-14-2024 PSA, Diagnostic 3.34 ng/mL High <2.60 [facility] Comment on above: Result Comment: Tota l PSA test methodology used is the Electrochemiluminescence Immunoassay by [employer]. Total PSA values by differing methodologies cannot be interchanged. For an individual patient, the significance of a PSA level should be interpreted in a broad clinical context, including age, race, family history, digital rectal exam, prostate size, results of prior testing (prostate biopsy, free PSA, PCA3), and use of 5-alpha reductase inhibitors. Considering the high incidence of asymptomatic cancer in the general population that may not pose an ultimate risk to a patient, the decision to recommend urological evaluation or prostate biopsy should be individualized after consideration of all these factors. REFERENCE: Elaine Barnett M.D., M.P.H., John Cheung M.D., Ph.D., Michele De León M.D., Millie Martines, M.P.H., Bekah Davis, Sc.Janna. Effect of Verification Bias on Screening for Prostate Cancer by Measurement of Prostatic Specific Antigen. N Engl J Med 2003,349:335-42. Performed By: #### 2 91719 #### [facility],[address] [place] [address] PSA, Percent Free 22 % Normal [facility] Comment on above: Result Comment: Tota l and free PSA test methodology used is the Electrochemiluminescence Immunoassay by [employer]. Total or free PSA values by differing methodologies cannot be interchanged. The below table lists the probability of finding prostate cancer upon needle biopsy, for men 50 years or older and total PSA concentrations from 4.0-10.0 ng/mL. Results should be interpreted within the broader clinical context. Free PSA(%) 50-59 years 60-69 years >69 years <11 49.2% 57.5% 64.5% 11-18 26.9% 33.9% 40.8% 19-25 18.3% 23.9% 29.7% >25 9.1% 12.2% 15.8% [address] [address] Diomedes Eric III, M.D. [id number] Performed By: #### 2 03988 #### [facility],[address] [place] [address]857 CBC + DIFFon 10-13-2024 Baso # 0.05 x10EE3/UL Normal 0.00 - 0.10 [facility] Comment on above: Performed By: #### 2 99306 #### [facility],[address] [place] [address]51 Basophils/100 WBC (Bld) 0.8 % Normal 0.0 - 2.0 [facility] Comment on above: Performed By: #### 2 66540 #### [facility],[address] [place] [address] CBC + DIFF Normal [facility] Comment on above: Result Comment: CBC- COMPLETE BLOOD COUNT Performed By: #### 2 81192 #### [facility],[address] [place] [address] EO # 0.21 x10EE3/UL Normal 0.00 - 0.50 [facility] Comment on above: Performed By: #### 2 16240 #### [facility],[address] [place] [address]13 Eosinophils/100 WBC (Bld) 3.3 % Normal 0.0 - 7.0 [facility] Comment on above: Performed By: #### 2 41773 #### [facility],[address] [place], [place] [id number] Erythrocyte distribution width (RBC) [Ratio] 15.4 % Normal 12.0 - 15.6 [facility] Comment on above: Performed By: #### 2 58685 #### [facility],[address] [place], [place] [id number] Hematocrit (Bld) [Volume fraction] 39.6 % Low 40.0 - 52.0 [facility] Comment on above: Performed By: #### 2 81193 #### [facility],[address] [place] [address]192 Hemoglobin (Bld) [Mass/Vol] 13.8 g/dL Normal 13.0 - 17.5 [facility] Comment on above: Performed By: #### 2 23598 #### [facility],[address] [place] [address] Lymph # 1.55 x10EE3/UL Normal 0.80 - 2.80 [facility] Comment on above: Performed By: #### 2 80240 #### [facility],[address] [place] [address] Lymphocytes/100 WBC (Bld) 23.7 % Normal 20.0 - 45.0 [facility] Comment on above: Performed By: #### 2 02421 #### [facility],[address] [place] [address] MANUAL DIFF N/A Normal [facility] Comment on above: Performed By: #### 2 08033 #### [facility],[address] [place] [address] MCH (RBC) [Entitic mass] 31 pg Normal 27 - 33 [facility] Comment on above: Performed By: #### 2 62061 #### [facility],[address] [place] [address] MCHC 35 X10 3 Normal 32 - 36 [facility] Comment on above: Performed By: #### 2 92485 #### [facility],[address] [place] [address] MCV (RBC) [Entitic vol] 90 fL Normal 81 - 98 [facility] Comment on above: Performed By: #### 2 64312 #### [facility],[address] [place], [place] [id number] [place] # 0.49 x10EE3/UL Normal 0.20 - 1.00 [facility] Comment on above: Performed By: #### 2 70188 #### [facility],[address] [place] [address] MONOS % 7.4 % Normal 0.0 - 10.0 [facility] Comment on above: Performed By: #### 2 27004 #### [facility],[address] [place], [place] [id number] Morphology Hasmukh (Bld) [Interp] N/A Normal [facility] Comment on above: Performed By: #### 2 86034 #### [facility],[address] [place] [address] Neut # 4.25 x10EE3/UL Normal 1.50 - 7.10 [facility] Comment on above: Performed By: #### 2 25971 #### [facility],[address] [place] [address] Neutrophils/100 WBC (Bld) 64.9 % Normal 46.0 - 76.0 [facility] Comment on above: Performed By: #### 2 98279 #### [facility],[address] [place], [place] [phone] PLATELET 184 x10EE3/UL Normal 150 - 450 [facility] Comment on above: Performed By: #### 2 58544 #### [facility],[address] [place] [address] Platelet mean volume (Bld) [Entitic vol] 7.7 fL Normal 6.4 - 10.5 [facility] Comment on above: Result Comment: AUTO MATED DIFFERENTIAL Performed By: #### 2 30681 #### [facility],[address] [place], [place] [phone] RBC 4.41 x 10EE6/UL Low 4.50 - 6.00 [facility] Comment on above: Performed By: #### 2 38278 #### [facility],[address] [place], [place] [id number] WBC 6.6 x 10EE3/UL Normal 4.5 - 10.8 [facility] Comment on above: Performed By: #### 2 42409 #### [facility],[address] [place] [address]7776 CMP with eGFRon 10-13-2024 AGE 64 years Normal [facility] Comment on above: Performed By: #### 2 93170 #### [facility],[address] [place] [address]4492 Albumin [Mass/Vol] 3.9 g/dL Normal 3.4 - 5.0 [facility] Comment on above: Performed By: #### 2 95258 #### [facility],[address] [place] [address] Albumin/Globulin [Mass ratio] 1.2 {ratio} Normal 0.9 - 1.6 [facility] Comment on above: Performed By: #### 2 76262 #### [facility],[address] [place] [address] 28325 ALK PHOS 44 U/L Low 46 - 116 [facility] Comment on above: Performed By: #### 2 70255 #### [facility],[address] [place] [address] 62927 ALT [Catalytic activity/Vol] 40 U/L Normal 16 - 63 [facility] Comment on above: Performed By: #### 2 05794 #### [facility],[address] [place] [address]881 Anion gap [Moles/Vol] 13 mmol/L Normal 10 - 20 [facility] Comment on above: Performed By: #### 2 52474 #### [facility],[address] [place] [address] 41100 AST [Catalytic activity/Vol] 18 U/L Normal 15 - 37 [facility] Comment on above: Performed By: #### 2 26890 #### [facility],[address] [place] [address] 96599 B/C RATIO 20 ratio Normal 0 - 30 [facility] Comment on above: Performed By: #### 2 73826 #### [facility],[address] [place] [address] 03348 Bilirubin [Mass/Vol] 0.9 mg/dL Normal 0.2 - 1.0 [facility] Comment on above: Performed By: #### 2 25692 #### [facility],[address] [place] [address] 33583 Calcium [Mass/Vol] 9.2 mg/dL Normal 8.5 - 10.1 [facility] Comment on above: Performed By: #### 2 63554 #### [facility],[address] [place] [address] 46637 Chloride [Moles/Vol] 100 mmol/L Normal 98 - 107 [facility] Comment on above: Performed By: #### 2 10088 #### [facility],[address] [place] [address] 36742 CMP with eGFR Normal [facility] Comment on above: Result Comment: COMP REHENSIVE METABOLIC PANEL Performed By: #### 2 96494 #### [facility],[address] [place] [address] 93176 CO2 [Moles/Vol] 28.9 mmol/L Normal 21.0 - 32.0 [facility] Comment on above: Performed By: #### 2 09754 #### [facility],[address] [place] [address]657 Creatinine [Mass/Vol] 1.57 mg/dL High 0.70 - 1.30 [facility] Comment on above: Performed By: #### 2 10094 #### [facility],[address] [place] [address] [place] [address] eGFR 45 ML/MINUTE Low 60 - 999 [facility] Comment on above: Performed By: #### 2 99489 #### [facility],[address] [place] [address] [place] [address] eGFR(AA) 54 ML/MINUTE Low 60 - 999 [facility] Comment on above: Result Comment: ACCO RDING TO THE NATIONAL KIDNEY DISEASE EDUCATION PROGRAM(NKDE), A NORMAL eGFR IS A VALUE GREATER THAN OR EQUAL TO 60 ML/MIN/1.73 SQ METERS. CHRONIC KIDNEY DISEASE: <60mL/MIN/1.73 SQ METERS KIDNEY FAILURE: <15mL/MIN/1.73 SQ METERS THIS TEST SHOULD ONLY BE USED FOR PATIENTS 18 YEARS OF AGE AND OLDER. Performed By: #### 2 64616 #### [address] [address] Globulin (S) [Mass/Vol] 3.3 g/dL Normal 1.5 - 3.8 [facility] Comment on above: Performed By: #### 2 86599 #### [address] [address] Glucose [Mass/Vol] 130 mg/dL High 74 - 106 [facility] Comment on above: Performed By: #### 2 32677 #### [address] [address] Potassium [Moles/Vol] 4.1 mmol/L Normal 3.5 - 5.1 [facility] Comment on above: Performed By: #### 2 11718 #### [address] [address] Protein [Mass/Vol] 7.2 g/dL Normal 6.4 - 8.2 [facility] Comment on above: Performed By: #### 2 42238 #### [address] [address] Sodium [Moles/Vol] 138 mmol/L Normal 136 - 145 [facility] Comment on above: Performed By: #### 2 06022 #### [address] [address] Urea nitrogen [Mass/Vol] 31 mg/dL High 7 - 18 [facility] Comment on above: Performed By: #### 2 40885 #### [address] [address] Free PSA [Mass/Vol]on 2024 Free PSA/Total PSA [Mass fraction] 22 % Normal [facility] Comment on above: Order Comment: Speci men Type: BLOOD SPECIMEN Ordering Facility: [facility] Address: [address] [place] [address] Result Comment: Tota l and free PSA test methodology used is the Electrochemiluminescence Immunoassay by [employer]. Total or free PSA values by differing methodologies cannot be interchanged. The below table lists the probability of finding prostate cancer upon needle biopsy, for men 50 years or older and total PSA concentrations from 4.0-10.0 ng/mL. Results should be interpreted within the broader clinical context. Free PSA(%) 50-59 years 60-69 years >69 years <11 49.2% 57.5% 64.5% 11-18 26.9% 33.9% 40.8% 19-25 18.3% 23.9% 29.7% >25 9.1% 12.2% 15.8% Performed By: #### 1 0886-0 #### [facility] CLIA [id number] [address] [place] [address] [place] Prostate specific Ag [Mass/Vol] 3.34 ng/mL High <2.60 [facility] Comment on above: Order Comment: Venus men Type: BLOOD SPECIMEN Ordering Facility: [facility] Address: [address] [place] [address] Result Comment: Tota l PSA test methodology used is the Electrochemiluminescence Immunoassay by [employer]. Total PSA values by differing methodologies cannot be interchanged. For an individual patient, the significance of a PSA level should be interpreted in a broad clinical context, including age, race, family history, digital rectal exam, prostate size, results of prior testing (prostate biopsy, free PSA, PCA3), and use of 5-alpha reductase inhibitors. Considering the high incidence of asymptomatic cancer in the general population that may not pose an ultimate risk to a patient, the decision to recommend urological evaluation or prostate biopsy should be individualized after consideration of all these factors. REFERENCE: Elaine Barnett M.D., M.P.H., John Cheung M.D., Ph.D., Michele De León M.D., Millie Martines M.P.H., Bekah Davis Sc.D. Effect of Verification Bias on Screening for Prostate Cancer by Measurement of Prostatic Specific Antigen. N Engl J Med 2003,349:335-42. Performed By: #### 1 0886-0 #### [facility] CLIA [id number] [address] [place] [address] OF [facility] HEMOGLOBIN A1C (POM)on 10-13 Glucose [Mass/Vol] 159.9 mg/dL High 0.0 - 0.0 [facility] Comment on above: Result Comment: Do HEMOGLOBIN A1C REFERENCE RANGESDo Suggested Diagnosis HbA1c(%) HbA1C (mmol/mol Diabetic >/=6.5 >/=48 Prediabetes 5.7 - 6.4 39 - 47 Normal <5.7 <39 Performed By: #### 2 14004 #### [facility],[address] [place] [address] HbA1c (Bld) [Mass fraction] 7.2 % High 0.0 - 6.5 [facility] Comment on above: Performed By: #### 2 22680 #### [facility],[address] [place] [address] LIPID PROFILEon 10-13-2024 Cholesterol [Mass/Vol] 118 mg/dL Normal 0 - 240 [facility] Comment on above: Performed By: #### 2 16273 #### [facility],[address] [place] [address]88 Cholesterol in HDL [Mass/Vol] 40 mg/dL Normal 40 - 60 [facility] Comment on above: Performed By: #### 2 91937 #### [facility],[address] [place] [address]876 Cholesterol in LDL [Mass/Vol] 54 mg/dL Normal 0 - 129 [facility] Comment on above: Performed By: #### 2 28127 #### [facility],[address] [place] [address]47 Cholesterol.total/Cho lesterol in HDL [Mass ratio] 3.0 {ratio} Normal 0.0 - 5.0 [facility] Comment on above: Performed By: #### 2 97065 #### [facility],[address] [place] [address]210 Lipid 1996 panel Normal [facility] Comment on above: Result Comment: LIPI D PROFILE Performed By: #### 2 85266 #### [facility],[address] [place] [address]70 Triglyceride [Mass/Vol] 118 mg/dL Normal 0 - 150 [facility] Comment on above: Performed By: #### 2 47036 #### [facility],[address] [place] [address] 99995 TSHon 10-13-2024 TSH Qn 2.13 m[IU]/L Normal 0.35 - 3.74 [facility] Comment on above: Performed By: #### 2 22685 #### [facility],[address] [place] [address]778 URINE MICROALBUMIN W/CREATIN INE, RANDOMon 10-13-2024 CREATININE UR 16.39 mg/dl Normal [facility] Comment on above: Performed By: #### 2 20233 #### [facility],[address] [place] [address]676 MICROALBUMIN UR 0.3 mg/dL Normal 0.1 - 25.1 [facility] Comment on above: Performed By: #### 2 32509 #### [facility],[address] [place] [address]261 UACR 18 mg/g Normal [facility] Comment on above: Performed By: #### 2 14331 #### [facility],[address] [place] [address] 43561 VITAMIN D, 25 HYDROXYon 06- VitD 60.50 ng/mL Normal 30.00 - 100 [facility] Comment on above: Result Comment: 25-O HD3 indicates both endogenous production and supplementation. 25-OHD2 is an indicator of exogenous sources, such as diet or supplementation. Therapy is based on measurement of Total 25-OHD, with levels <20 ng/mL indicative of Vitamin D deficiency, while levels between 20 ng/mL and 30 ng/mL suggest insufficiency. Optimal levels are >=30ng/mL. Vitamin D, 25-OH D3 Not Established Vitamin D, 25-OH D2 Not Established Performed By: #### 2 00405 #### [facility],[address] [facility] [address] Pulmonary Visit Reporton Pulmonary Visit Report [facility] of [address] [place] [address] OFFICE VISIT Date of Service: 09/24/24 MR#: [id number] Acct: [id number] Name: BRAVO FREEDMAN Rep #: [id number] : 1960 Provider: Lynnette Avila NP Age/Sex: 64/M Location[place] [facility] [place] [facility] [place] Status: Signed Assessment and Plan Assessment and Plan (1) COPD (chronic obstructive pulmonary disease): Status: Chronic Qualifiers: COPD type: unspecified COPD Qualified Code(s): J44.9 - Chronic obstructive pulmonary disease, unspecified Comment: FEV1 is 66% Plan: Mild obstructive ventilatory disease identified on PFT with mild gas transfer abnormality and air trapping which do suggest mild COPD. The degree of supplemental oxygen required upon exertion is disproportionate to the mild disease identified on PFT testing. I believe that there is a significant cardiovascular component to the patient's shortness of breath and exertional oxygen requirement. There is also reversibility with use of beta agonist seen on the PFT. I have recommended that the ICS dosage be increased from Wixela 250 to Wixela 500, 1 puff twice daily to see if there is any benefit in regards to his shortness of breath. The patient may have asthma -COPD overlap syndrome present even though his NIOX was not elevated today. I recommend that he continue to use his Spiriva as this will help with the air trapping that has been identified on the PFT. Follow-up with cardiology as previously planned for next week. (2) Smoking greater than 40 pack years: Status: Acute Plan: Continue with complete smoking cessation. CTA from 02/2024 did not show evidence of nodules. Patient should have LDCT repeated 02/2025, ordered accordingly.Discussed current USPS TF guidelines for low-dose screening lung CT. Discussed risk/benefits including overdiagnosis, false positives and need for further testing. Counseled on importance of smoking cessation and adherence to screening program until patient no longer meets criteria. Patient is asymptomatic from lung cancer and is willing to undergo further testing and treatment if lung cancer is detected. (3) Obstructive sleep apnea: Status: Acute Plan: The patient reports that this is being followed by his PCP. The CO2 is elevated on recent lab work so this may not be completely controlled at this time. Last echocardiogram did not show evidence of pulmonary hypertension. I do not have compliance download or nocturnal oximetry's to review at today's visit, patient indicates that this has been completed through the ordering provider. If ORTIZ is uncontrolled this could be contributing to his shortness of breath. Orders: Orders NIOX Today R05.9 - Cough, unspecified Medications: New fluticasone propion-salmeterol 500-50 mcg/dose (Wixela Inhub) 1 inh inhalation BID 60 ea 2RF Discontinued fluticasone propion-salmeterol 250-50 mcg/dose (Wixela Inhub) Discontinued Reason: Order Changed 1 inh inhalation BID 60 ea 11RF Plan Details Follow Up: 3-month (LMR) HPI HPI Comments Details: Patient is a 64-year-old male who presents today for follow-up to review recent testing due to dyspnea. He is ambulatory and currently on room air. He carries a diagnosis of COPD. He had previous PFT from March 28, 2022 which showed moderate obstructive abnormality with a response to bronchodilators. At his last office visit with his PCP he was noted to be symptomatic requiring supplemental oxygen. He also carries comorbid diagnoses of chronic kidney disease, atrial fibrillation, history of LA, history of coronary artery disease. In review of previous laboratories from June 17, 2024 the patient did have an elevated CO2 at 32.5. He does also have a history of sleep apnea and his baseline PSG from March 27, 2018 shows very severe obstructive sleep apnea with severe hypoxemia. The patient ended up having a split-night t est that night due to the severity of the disease. The recommendation was to begin on CPAP 15 cm. ESS is 2. No compliance data available to review today. When he is using his PAP device he will use 2 L/min of supplemental oxygen. He denies headache. He does report some dry mouth and reports that he awakens feeling rested. He denies napping. He denies headaches. He believes that his PCP has been monitoring his device and has performed a nocturnal oximetry. ESS is 1. The patient has been hospitalized before for his breathing but did not require intubation. Today he denies wheezing. He reports shortness of breath will occur with exertion and when he is bending over. He did experience chest tightness this morning. He coughs to clear his throat. When he walks a long distance it will occur. It will take a few minutes to recover. At last visit he was given a sample of Trelegy 100, 1 puff daily to begin. He last used albut (more content not included)... Normal [facility] KIDNEY / BLADDERon 2024 KIDNEY / BLADDER [place] [address] Patient: BRAVO FREEDMAN Phone#: : 1960 Age: 64 Gender: M Pt. Type: Out Account: [id number] Location: [facility] Ordering: DR. VI MCNAMARA Exam Date: 09/18/2024/10:33 Family Phys: GRAHAM PRIEST Charge Code: 056430 Physician: [place] Order #: [id number] Dose#: PROCEDURE: KIDNEY/BLADDER ULTRASOUND COMPARISON: None. INDICATIONS: Chronic kidney disease, stage IIIa TECHNIQUE: Ultrasound examination was performed of the kidneys and bladder. FINDINGS: Study limited by patient body habitus RIGHT KIDNEY: Right renal atrophy and parenchymal thinning. No hydronephrosis. Right kidney measures 7.2 x 4.0 x 5.4 cm. LEFT KIDNEY: Normal renal parenchymal echogenicity. No hydronephrosis. Small left parapelvic cyst measuring 0.8 x 1.1 x 1.0 cm. Left kidney measures 11.4 x 5.5 x 7.2 cm BLADDER: Prevoid bladder volume measures 257 mL. Postvoid bladder volume measures 32 mL OTHER: Negative. CONCLUSION: 1. Atrophic right kidney 2. Small postvoid residual Dictated by: Genevieve Carrillo MD on 09/18/2024 at 12:50 Approved by: Genevieve Carrillo MD on 09/18/2024 at 12:55 Normal [facility] 6 Minute Walk Teston 025 6 Minute Walk Test y [facility] Pulmonary Services/Neurology [address] [place] [address] MR#: [id number] Acct: [id number] Name: BRAVO FREEDMAN Rep #: [id number] : 1960 64 From: George Lee DO Referring Dr: Lynnette Avila ARMED GUARD-C Status: REG CLI Location: PSN Date: Sex: M C PSN 6 Minute Walk Test 6 Minute Walk Test 6 Minute Walk Test: 6 Minute Walk Test PSN:6-Minute Walk Test Start: 09/04/24 12:28 Freq: Status: Active Protocol: [id number].[id number] Document 09/04/24 12:28 SFENTON (Rec: 09/04/24 12:34 SFENTON [id number]) 6 Minute Walk Test Date Performed 09/04/24 Time Performed 12:15 Height 5 ft 9 in Weight: 285 lb Weight in Pounds 285.[address]: Lynnette Avila Assistive device None used: Pre-test Oxygen Delivery Room Air Method Pulse Ox (%) 92 Pulse Rate (60-100 66 beats/min) Dyspnea Ana Scale ( 0 0-10) Exertion Ana Scale 6 (6-20) 1st minute Oxygen Delivery Room Air Method Pulse Ox (%) 90 Pulse Rate (60-100 79 beats/min) 2nd minute Oxygen Delivery Room Air Method Pulse Ox (%) 88 Pulse Rate (60-100 80 beats/min) 3rd minute Oxygen Flow Rate (L/ 3 min) (L/min) Oxygen Delivery Nasal Cannula Method Pulse Ox (%) 91 Pulse Rate (60-100 78 beats/min) 4th minute Oxygen Flow Rate (L/ 3 min) (L/min) Oxygen Delivery Nasal Cannula Method Pulse Ox (%) 92 Pulse Rate (60-100 78 beats/min) 5th minute Oxygen Flow Rate (L/ 3 min) (L/min) Oxygen Delivery Nasal Cannula Method Pulse Ox (%) 91 Pulse Rate (60-100 80 beats/min) Number of Rests 1 Taken 6th minute Oxygen Flow Rate (L/ 3 min) (L/min) Oxygen Delivery Nasal Cannula Method Pulse Ox (%) 91 Pulse Rate (60-100 81 beats/min) Dyspnea Ana Scale ( 2 0-10) Exertion Ana Scale 14 (6-20) Post-test Oxygen Flow Rate (L/ 3 min) (L/min) Oxygen Delivery Nasal Cannula Method Pulse Ox (%) 93 Pulse Rate (60-100 69 beats/min) Full Laps Walked 11 Partial Lap, Number 6 of Tiles Walked Total Distance 655 Walked (ft) 09/04/24 12:30 Cardiopulmonary Services by Svetlana Cristina Patient wears 3 lpm O2 at home with pulse dose POC, on ambulation. Patient states he also has a concentrator at home where he can wear 2lpm continuous and inline with his CPAP HS. Patient started walk on room air. At the second minute SpO2 88%. Patient placed on home POC at 3lpm O2. He walked the rest of the test with 1 brief break. Patient stated he was not short of breath but his legs and back would have kept him from being able to walk any further. Initialized on 09/04/24 12:30 - END OF NOTE Interpretation Interpretation: The patient ambulated 655 feet over the course of 6 minutes beginning on room air without assistive devices. Pretesting oxygen saturation was noted to be 92% on room air. With ambulation, the lupillo oxygen saturation was 88%. 3 L/min of pulsed dose supplemental oxygen was applied and the patient was able to complete the remainder of the test while maintaining appropriate saturations. Recommendations Recommendations: 3 L/min of pulse dose supplemental oxygen is required with exertion. 09/05/241218 Date George Lee DO CC: Date Dictated: 09/05/241218 Date Transcribed: 09/05/241218 Training Development Director: Dr. George Lee DO Signed Normal [facility] Pulmonary Visit Reporton Pulmonary Visit Report [facility] [place] [address] [place] [address] OFFICE VISIT Date of Service: 08/05/24 MR#: [id number] Acct: [id number] Name: BRAVO FREEDMAN Rep #: [id number] : 1960 Provider: Lynnette Avila NP Age/Sex: 64/M Location: [facility] Status: Signed Assessment and Plan Assessment and Plan (1) COPD (chronic obstructive pulmonary disease): Status: Chronic Qualifiers: COPD type: unspecified COPD Qualified Code(s): J44.9 - Chronic obstructive pulmonary disease, unspecified Plan: Confirmed on previous testing but no recent testing is available since recent hospitalization. I have recommended a PFT and a 6-minute walk test as the degree of COPD is currently unspecified. I have recommended triple therapy at this time. The patient was provided with Trelegy 100, 1 puff daily samples for him to begin use and a prescription was sent to his pharmacy.. I have given him education on proper inhaler technique and oral hygiene after inhaler use. Patient is agreeable to this trial. (2) Smoking greater than 40 pack years: Status: Acute Plan: Continue with complete smoking cessation. CTA from 02/2024 did not show evidence of nodules. Patient should have LDCT repeated 02/2025, ordered accordingly.Discussed current USPS TF guidelines for low-dose screening lung CT. Discussed risk/benefits including overdiagnosis, false positives and need for further testing. Counseled on importance of smoking cessation and adherence to screening program until patient no longer meets criteria. Patient is asymptomatic from lung cancer and is willing to undergo further testing and treatment if lung cancer is detected. (3) Obstructive sleep apnea: Status: Acute Plan: The patient reports that this is being followed by his PCP. The CO2 is elevated on recent lab work so this may not be completely controlled at this time. Last echocardiogram did not show evidence of pulmonary hypertension at this time. I do not have compliance download or nocturnal oximetry's to review at today's visit. I will plan to await the PFT to determine if there is gas transfer abnormality and then further workup may be warranted for ORTIZ. Orders: Orders PFT Complete - DLCO, Spirometry b/a bronchodilators, lung volumes 09/02/24 J44.9 - Chronic obstructive pulmonary disease, unspecified Simple Pulmonary Exercise Test 09/04/24 J44.9 - Chronic obstructive pulmonary disease, unspecified Low Dose CT Lung Screening 7 Months F17.210 - Nicotine dependence, cigarettes, uncomplicated Medications: New lekvaznnjhw-xfewnrykm-ppwr nter 100-62.5-25 mcg (Trelegy Ellipta) 1 inh inhalation Q24H 60 ea 5RF J44.9 - Chronic obstructive pulmonary disease, unspecified Plan Details Follow Up: 6 to 8 weeks (LMR) HPI HPI Comments Details: Patient is here for evaluation of dyspnea. He is ambulatory and currently on room air. He is being referred by Dr. Priest. He carries a diagnosis of COPD. He had previous PFT from March 28, 2022 which showed moderate obstructive abnormality with a response to bronchodilators. At his last office visit with his PCP he was noted to be symptomatic requiring supplemental oxygen. He also carries comorbid diagnoses of chronic kidney disease, atrial fibrillation, history of LA, history of coronary artery disease. In review of previous laboratories from June 17, 2024 the patient did have an elevated CO2 at 32.5. He does also have a history of sleep apnea and his baseline PSG from March 27, 2018 shows very severe obstructive sleep apnea with severe hypoxemia. The patient ended up having a split-night test that night due to the severity of the disease. The recommendation was to begin on CPAP 15 cm. ESS is 2. No compliance data available to review today. When he is using his PAP device he will use 2 L/min of supplemental oxygen. He denies headache. He does report some dry mouth and reports that he awakens feeling rested. He denies napping. The patient has been hospitalized before for his breathing but did not require intubation. He does not have a daily maintenance inhaler, just albuterol that he uses on an as needed basis. The albuterol is helpful for his wheeze, dyspnea, cough. He does indicate that he has a productive cough that is yellow to clear sputum. He denies chest pain and chest tightness. He does report shortness of breath upon exertion. When he walks a long distance it will occur. It will take a few minutes to recover. It is harder to get air in. This has occurred since April 2024. In April, he was fine on Sunday and woke up and couldn't breath on Sunday. He was then hospitalized for COPD exacerbation and reports that breathing treatment did help. Steroids and antibiotics but did not help all together as he feels like he can't take a real deep breath like used to. He does use (more content not included)... Normal [facility] 07-25-2024 CNPN Telephone (CARMOB) -- JASMINABRAVO R ([id number]) 1960 M Date Time Provider Department 07/25/24 LENA SOMERS During your visit today, we recorded the following information about you: Yenni Sanchez, RN 07/25/2024 2:15 PM Signed [facility] is faxing EP referral to Dr Somers to [phone]. If you do not receive it please call [phone]. Yenni Sanchez, RN 08/05/2024 9:57 AM Signed [facility] called back to check status. She will refax to [phone]. Please call if you do not receive. Uzma Manriquez 08/06/2024 4:17 PM Signed Call placed to [facility] and spoke with Chen to let her know we only received part of the fax. She is going to resend it. Yenni Sanchez, RN 08/08/2024 3:30 PM Signed [place] called again to check status of referral. Uzma Manriquez 08/11/2024 12:19 PM Signed Call placed to office and it was closed. Faxed a request for referral to be resent as we only received part of it. Yenni Sanchez, RN 08/11/2024 3:24 PM Signed [facility] left a voicemail stating that they refaxed in 4 batches. Uzma Manriquez 08/11/2024 3:55 PM Signed Call placed to [facility] and spoke with Marlena to let her know that we did receive all 4 parts of the referral. Uzma Manriquez 08/11/2024 3:55 PM Signed Received a referral for Dr. Somers from [facility] the office of Syl Agarwal. Patient is referred for ablation for SVT vs atrial tachycardia or ORT. Scanned records into chart and will place on desk for review. Chepe Alan RN 08/11/2024 5:[address] Somers reviewed this referral. Please offer Mr. Freedman a next available new-patient appointment with either Dr. Somers or Dr. Rodriguez. Thank you, Chepe Alan RN August 11, 2024 5:44 PM Vincent Luis 08/12/2024 8:22 AM Signed Scheduled and confirmed. Vincent Luis Allergies As of Date: 07/25/2024 Noted Allergy Reaction CODEINE 10/09/2006 Comments: Gives him a migraine CRESTOR (ROSUVASTATIN) 02/23/2024 5 - Intolerance Comments: Leg cramps LIPITOR (ATORVASTATIN) 02/23/2024 5 - Intolerance Comments: Leg cramps Date Reviewed: 02/24/2024 Reviewed by: Zan Dubois, RN - Fully Assessed Prescriptions as of 08/12/2024 - aspirin, enteric coated (ASPIRIN, ENTERIC COATED) 81 mg EC tablet Take 1 tablet by mouth once daily. - alfuzosin SR (UROXATRAL) 10 mg 24 hr tablet Take 10 mg by mouth once daily. - atorvastatin (LIPITOR) 80 mg tablet Take 80 mg by mouth once daily. - losartan (COZAAR) 25 mg tablet Take 25 mg by mouth two times a day. - metFORMIN (GLUCOPHAGE) 500 mg tablet Take 1,000 mg by mouth daily with dinner. - metoprolol tartrate, short acting, (LOPRESSOR) 50 mg tablet Take 50 mg by mouth two times a day. - pantoprazole DR (PROTONIX) 40 mg tablet Take 40 mg by mouth once daily. - omega-3s/dha/epa/fish oil/D3 (VITAMIN-D + OMEGA-3 ORAL) Take 125 mg by mouth once daily. LD 02/18/24 - semaglutide (OZEMPIC) 0.25 mg or 0.5 mg(2 mg/1.5 mL) pen Inject 0.25 mg subcutaneously one time a week. ON SUNDAY LD 02/10/24 - Coenzyme Q10 (CO Q-10) 200 mg cap Take 200 mg by mouth once daily. - ascorbic acid, vitamin C, (VITAMIN C) 500 mg tablet Take 1,000 mg by mouth once daily. - Magnesium 250 mg tab Take 500 mg by mouth once daily. - pyridoxine, vitamin B6, (VITAMIN B-6) 100 mg tablet Take 100 mg by mouth once daily. - ALBUTEROL INHALATION Inhale 2 Puffs as instructed every 4 hours as needed. - OXYGEN, HOME THERAPY, Inhale 2 L/min as instructed daily at bedtime. 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] 02/24/2024 Encounter Status:Closed by VINCENT LUIS on 08/12/24 [facility] CMP with eGFRon 07-24-2024 AGE 64 years Normal [facility] Comment on above: Performed By: #### 2 [id number] #### [facility],[address] [place] [address] Albumin [Mass/Vol] 3.7 g/dL Normal 3.4 - 5.0 [facility] Comment on above: Performed By: #### 2 [id number] #### [facility],[address] [place] [address]21 Albumin/Globulin [Mass ratio] 1.0 {ratio} Normal 0.9 - 1.6 [facility] Comment on above: Performed By: #### 2 27583 #### [facility],[address] [place] [address] 82657 ALK PHOS 51 U/L Normal 46 - 116 [facility] Comment on above: Performed By: #### 2 98009 #### [facility],[address] [place] [address] 61735 ALT [Catalytic activity/Vol] 33 U/L Normal 16 - 63 [facility] Comment on above: Performed By: #### 2 67218 #### [facility],[address] [place] [address] 52270 Anion gap [Moles/Vol] 9 mmol/L Low 10 - 20 [facility] Comment on above: Performed By: #### 2 43622 #### [facility],[address] [place] [address] 72911 AST [Catalytic activity/Vol] 12 U/L Low 15 - 37 [facility] Comment on above: Performed By: #### 2 92922 #### [facility],[address] [place] [address] 16163 B/C RATIO 19 ratio Normal 0 - 30 [facility] Comment on above: Performed By: #### 2 74669 #### [facility],[address] [place] [address] 99265 Bilirubin [Mass/Vol] 0.4 mg/dL Normal 0.2 - 1.0 [facility] Comment on above: Performed By: #### 2 11511 #### [facility],[address] [place] [address] 41206 Calcium [Mass/Vol] 9.1 mg/dL Normal 8.5 - 10.1 [facility] Comment on above: Performed By: #### 2 64234 #### [facility],[address] [place] [address] 50748 Chloride [Moles/Vol] 103 mmol/L Normal 98 - 107 [facility] Comment on above: Performed By: #### 2 95062 #### [facility],[address] [place] [address] 13624 CMP with eGFR Normal [facility] Comment on above: Result Comment: COMP REHENSIVE METABOLIC PANEL Performed By: #### 2 87051 #### [facility],[address] [place] [address] 06179 CO2 [Moles/Vol] 28.1 mmol/L Normal 21.0 - 32.0 [facility] Comment on above: Performed By: #### 2 37741 #### [facility],[address] [place] [address] 84095 Creatinine [Mass/Vol] 1.29 mg/dL Normal 0.70 - 1.30 [facility] Comment on above: Performed By: #### 2 32977 #### [facility],[address] [place] [address] 87343 eGFR 56 ML/MINUTE Low 60 - 999 [facility] Comment on above: Performed By: #### 2 44631 #### [facility],[address] [place] [address] 12807 GFR/1.73 sq M.predicted among non-blacks MDRD (S/P/Bld) [Vol rate/Area] mL/min/{1.73_m2} Normal 60 - 999 [facility] Comment on above: Result Comment: ACCO RDING TO THE NATIONAL KIDNEY DISEASE EDUCATION PROGRAM(NKDE), A NORMAL eGFR IS A VALUE GREATER THAN OR EQUAL TO 60 ML/MIN/1.73 SQ METERS. CHRONIC KIDNEY DISEASE: <60mL/MIN/1.73 SQ METERS KIDNEY FAILURE: <15mL/MIN/1.73 SQ METERS THIS TEST SHOULD ONLY BE USED FOR PATIENTS 18 YEARS OF AGE AND OLDER. Performed By: #### 2 99352 #### [facility],[address] [place] [address] 45669 Globulin (S) [Mass/Vol] 3.7 g/dL Normal 1.5 - 3.8 [facility] Comment on above: Performed By: #### 2 17126 #### [facility],[address] [place] [address] 38967 Glucose [Mass/Vol] 173 mg/dL High 74 - 106 [facility] Comment on above: Performed By: #### 2 51778 #### [facility],[address] [place] [address] 67498 Potassium [Moles/Vol] 4.4 mmol/L Normal 3.5 - 5.1 [facility] Comment on above: Performed By: #### 2 49002 #### [address] [address] Protein [Mass/Vol] 7.4 g/dL Normal 6.4 - 8.2 [facility] Comment on above: Performed By: #### 2 96172 #### [facility],[address] [place] [address] 53723 Sodium [Moles/Vol] 136 mmol/L Normal 136 - 145 [facility] Comment on above: Performed By: #### 2 57163 #### [facility],[address] [place] [address] 67602 Urea nitrogen [Mass/Vol] 25 mg/dL High 7 - 18 [facility] Comment on above: Performed By: #### 2 63643 #### [facility],[address] [place] [address] 22876 ED MED ADMINISTRATION DETAIL on 07-24-2024 ED MED ADMINISTRATION DETAIL Consulting Database Administrator Medication Administration Record [address] [address] [id number] 07/23/2024 Patient: BRAVO FREEDMAN Sex: Male : 1960 Age: 64y MEASUREMENTS: Wt: 127.0 kg, Ht/Gavino: 69.0 in, BMI: 41.35 ALLERGIES: codeine Medication Ordered Medication Administration Date/Time Diltiazem 12:50 07/23 Diltiazem (Cardizem) IVP 15 mg given via Site# 1. Given (Cardizem) IVP 15 Allergies verified and confirmed 5 rights. IV patency established. IV 12:50 07/23/2024 mg (NOW x1, HIGH site checked: no pain, redness, or swelling. IV flushed thoroughly Minh Hillman R.N. ALERT pre-medication administration. IVP given by nurse. Information Scanned MEDICATION) reviewed with patient and spouse including reason for taking this medication, signs of allergic reaction and precautions. Verbalizes understanding. Medication Wastage: 10 mg wasted. - 12:55 Minh Hillman R.N. 12:50 07/23 Medication Co-sign: Verified dosage, concentration and rate. - 12:55 Demarcus Resendez R.N. Diltiazem 13:24 07/23 Diltiazem (Cardizem) PO 30 mg given. - 13:24 Given (Cardizem) PO 30 Olman Denton R.N. 13:24 07/23/2024 mg (NOW x1) Olman Denton R.N. 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 - 15:10 Olman Denton, Olman Denton R.N. diluted in sodium R.N. Stopped chloride IVPB 0.9 % 15:40 07/23/2024 Minibag+ 50 mL at 15:40 07/23 Medication Discontinued: IV infused. Total amount Olman Denton R.N. 100 mL/hr (NOW x1) infused: 50 mL. - 15:40 Olman Denton R.N. Scanned Azithromycin 15:09 07/23 Azithromycin (Zithromax) PO 500 mg given. Given (Zithromax) PO 500 Confirmed 5 rights. - 15:10 Olman Denton R.N. 15:09 07/23/2024 mg (NOW x1) Olman Denton R.N. Scanned Albuterol-Ipratropiu 15:30 07/23 Albuterol-Ipratropium (DuoNeb) 3mg/0.5mg Neb Tx 3 Given m (DuoNeb) mL given. - 15:31 Chris Grajeda 15:30 07/23/2024 3mg/0.5mg Neb Tx Chris Grajeda 3 mL (NOW x1) Scanned 2 of 2 Normal [facility] ED NURSES CLINICAL NOTEon ED NURSES CLINICAL NOTE Nurse Narrative Nurse Clinical Narrative [address] [place] [address] [id number] 07/23/2024 Patient: BRAVO FREEDMAN Sex: Male : 1960 Age: 64y Primary Insurance: [employer] OUTPATIENT Policy Number: [id number] Group Number: [id number] Subscriber: Other Disposition: Admit to [facility] Disposition Decision Time: 14:47 07/23/2024 Departure Time: 16:33 07/23/2024 TRIAGE Historian: (patient). Primary physician (Cem). Triage time: 12:32 07/23/2024. Acuity: LEVEL 2. Chief Complaint: CHEST PAIN and DISCOMFORT. This started just prior to arrival. The patient has had difficulty breathing. SEPSIS SCREEN: NEGATIVE. SIRS criteria negative: heart rate greater than 90. No possible sources of infection. -- 12:40 07/23/24 EDT Demarcus Resendez R.N. 12:39 07/23/24. BP: 80/57 MAP: 61 mmHg. HR: 82 bpm. -- 12:40 07/23/24 BRIENT Demarcus Resendez R.N. 12:40 07/23/24. HR: 157. RR: 24. O2 saturation: 91% on nasal cannula at 2 liters/minute. Temperature: 97.8 F. Pain level now 0/10. -- 12:40 07/23/24 HALEY Resendez R.N. Measurements: 12:39 07/23/24 Wt: 127.0 kg, Ht/Gavino: 69.0 in, BMI: 41.35 -- 12:39 07/23/24 HALEY Resendez R.N. Medications: aspirin 81 mg tablet,delayed release: once a day . -- 12:55 07/23/24 Ney QuanPhNimo 1 of 5 Nurse Narrative atorvastatin 80 mg tablet: at bedtime. -- 12:55 07/23/24 HALEY Gongora R.Ph. losartan 25 mg tablet: once a day . -- 12:55 07/23/24 Ney QuanPh. pantoprazole 40 mg tablet,delayed release: once a day . -- 12:56 07/23/24 Ney QuanPh. alfuzosin ER 10 mg tablet,extended release 24 hr: once a day . -- 12:56 07/23/24 Ney QuanPh. metoprolol tartrate 50 mg tablet: twice a day . -- 12:57 07/23/24 eNy QuanPh. Eliquis 5 mg tablet: twice a day . -- 12:58 07/23/24 Ney QuanPh. Ozempic 0.25 mg or 0.5 mg (2 mg/3 mL) subcutaneous pen injector: weekly . -- 12:58 07/23/24 HALEY Gongora R.Ph. amLODIPine 10 mg tablet: once a day . -- 12:58 07/23/24 Ney QuanPh. furosemide 20 mg tablet: once a day . -- 12:59 07/23/24 Ney QuanPh. sertraline 50 mg tablet: once a day . -- 12:59 07/23/24 Ney QuanPh. isosorbide mononitrate ER 30 mg tablet,extended release 24 hr: once a day . -- 13:00 07/23/24 Ney QuanPh. Vitamin C 500 mg tablet: once a day . -- 13:01 07/23/24 HALEY Gongora R.Ph. Vitamin B-6 100 mg tablet: once a day . -- 13:07/23/24 HALEY Gongora R.Ph. Vitamin D3 125 mcg (5,000 unit) tablet: once a day . -- 13:07/23/24 HALEY Gongora R.Ph. albuterol sulfate HFA 90 mcg/actuation aerosol inhaler: 2 inhalations four times a day as needed. -- 13:07/23/24 HALEY Gongora R.Ph. albuterol sulfate 0.63 mg/3 mL solution for nebulization: three times a day as needed. -- 13:07/23/24 HALEY Gongora R.Ph. MA mg once a day . -- 13:07/23/24 HALEY Gongora R.Ph. coenzyme Q10 200 mg capsule: once a day . -- 13:05 07/23/24 HALEY Gongora R.Ph. 12:32 07/23/24. Preferred Pharmacy: ([facility]). -- 12:40 07/23/24 HALEY Resendez R.N. Allergies: codeine -- 12:33 07/23/24 HALEY Resendez R.N. Problems: COPD - Chronic Obstructive Pulmonary Disease -- 12:36 07/23/24 HALEY Resendez R.N. Atrial Fibrillation -- 12:36 07/23/24 BRIENT Demarcus Resendez R.N. Diabetes Mellitus Type 2 -- 12:36 07/23/24 HALEY Resendez R.N. Myocardial Infarction -- 12:36 07/23/24 HALEY Resendez R.N. Supraventricular arrhythmia -- 12:36 07/23/24 BRIENT Demarcus Resendez R.N. Congestive Heart Failure -- 12:37 07/23/24 HALEY Resendez R.N. Gastroesophageal Reflux Disease -- 12:37 07/23/24 BRIENT Demarcus Resendez R.N. 2 of 5 Nurse Narrative ADDITIONAL SURGERIES: Aortic aneurysm repair -- 12:34 07/23/24 HALEY Resendez R.N. kidney surgery -- 12:34 07/23/24 EDT Demarcus Resendez R.N. Appendectomy -- 12:34 07/23/24 EDT Demarcus Resendez R.N. History 12:32 07/23/24. SOCIAL HX: Never smoker. Alcohol use. No drug use. The patient has not traveled outside the [place] Infectious disease exposure: No infectious disease exposure. ABUSE ASSESSMENT: The patient answered yes to the question(s) Do you feel safe in your home? and no to the question(s) Are you afraid to go home?. SELF HARM ASSESSMENT: Self harm assessment was performed. The patient answered no to the question(s) Have you recently felt down, depressed, or hopeless? and Do you have thoughts of harming or killing yourself?. FALL RISK ASSESSMENT: Fall risk assessment completed. Risk factors identified include weakness. -- 12:40 07/23/24 EDT Demarcus Resendez R.N. Interventions 12:32 07/23/24. Advanced care plan (full code). -- 12:40 07/23/24 EDT Demarcus Resendez R.N. PHYSICAL ASSESSMENT 12:45 07/23/24. To room via stretcher. (Pt c/o chest pain, (more content not included)... Normal [facility] ED ORDER SHEET (CPOE ONLY)on 07-24-2024 ED ORDER SHEET (CPOE ONLY) Order Sheet Order Sheet [address] [address] [id number] 07/23/2024 Patient: BRAVO FREEDMAN Sex: Male : 1960 Age: 64y MEASUREMENTS: Wt: 127.0 kg, Ht/Gavino: 69.0 in, BMI: 41.35 ALLERGIES: codeine MEDICATION/IV/DRIP/FLUID ORDERS Order Description Priority Entered Acknowledged Completed Diltiazem (Cardizem) IVP15 mg 12:38 07/23/2024 12:40 12:55 (NOW x1, HIGH ALERT Michele Cho, 07/23/2024 07/23/2024 MEDICATION) Yamilka Hillman, Minh Hillman R.N. RNimoN. Diltiazem (Cardizem) Drip IV 12:38 07/23/2024 12:40 125mg/100ml NS125 mg diluted Michele Cho, 07/23/2024 in sodium chloride IVPB 0.9 % D.ONimo Minh Eastep, 100 mL (NOW x1, HIGH ALERT R.N. MEDICATION, and then titrate per protocol, After IV Admixture Total Volume = 125ml) Diltiazem (Cardizem) PO30 mg 13:19 07/23/2024 13:22 13:24 (NOW x1) Michele Cho, 07/23/2024 07/23/2024 Janna.Olman Horan, R.N. R.N. Reason for ordering with alerts: Benefits outweigh risks --13:19 07/23/2024 Michele Cho D.O. CefTRIAXone (Rocephin) IVPB 14:45 07/23/2024 14:50 15:10 1 of 4 Order Sheet 2gm/50ml NS2 g diluted in Michele Cho, 07/23/2024 07/23/2024 sodium chloride IVPB 0.9 % Janna.OOlman Gonzales Minibag+ 50 mL at 100 mL/hr R.N. R.N. (NOW x1) Reason for ordering with alerts: Benefits outweigh risks --14:45 07/23/2024 Michele Cho D.O. Azithromycin (Zithromax) 14:45 07/23/2024 14:50 15:10 PO500 mg (NOW x1) Michele Cho, 07/23/2024 07/23/2024 Olman Guy, R.N. R.N. Reason for ordering with alerts: Benefits outweigh risks --14:45 07/23/2024 Michele Cho D.O. Albuterol-Ipratropium (DuoNeb) 15:22 07/23/2024 15:22 15:31 3mg/0.5mg Neb Tx3 mL (NOW Michele Cho, 07/23/2024 07/23/2024 x1) Chris Guy R.N. LAB ORDERS Order Description Priority Entered Acknowledged Collected Completed CBC w Diff Stat Stat 12:38 07/23/2024 12:40 07/23/2024 12:56 07/23/2024 Minh Yanez Lucas Eastep, D.O. R.N. R.N. BNP Stat Stat 12:38 07/23/2024 12:40 07/23/2024 12:56 07/23/2024 Minh Yanez Lucas Eastep, D.O. R.N. R.NNimo CMP Stat Stat 12:38 07/23/2024 12:40 07/23/2024 12:56 07/23/2024 Minh Yanez Lucas Eastep, D.O. R.N. R.Cain PT with INR Stat Stat 12:38 07/23/2024 12:40 07/23/2024 12:56 07/23/2024 Minh Yanez Lucas Eastep, D.O. R.N. R.NNimo 2 of 4 Order Sheet PTT Stat Stat 12:38 07/23/2024 12:40 07/23/2024 12:56 07/23/2024 Minh Yanez Lucas Eastep, D.O. R.N. R.N. Troponin-I Protocol Stat 12:38 07/23/2024 12:40 07/23/2024 12:56 07/23/2024 (STAT 1hr) (Sched: q1h Minh Yanez Lucas Eastep, X2); Stat 1 of 2 D.O. R.N. R.N. Troponin-I Protocol Stat 12:38 07/23/2024 14:14 07/23/2024 14:22 07/23/2024 (STAT 1hr) (Sched: q1h Olman Yanez Samuel Burgett, X2); Stat 2 of 2 D.O. R.N. R.N. EKG - ED Stat Stat 12:38 07/23/2024 12:39 07/23/2024 12:56 07/23/2024 Minh Yanez Lucas Eastep, D.ONimo R.N. R.N. Flu Swab (Influenzae Stat 13:10 07/23/2024 13:17 07/23/2024 13:25 07/23/2024 AAg) Stat Olman Yanez Samuel Burgett, Yamilka Juan.N. R.N. Rapid COVID (SARS) Stat 13:10 07/23/2024 13:17 07/23/2024 13:25 07/23/2024 ANTIGEN TEST Stat Olman Yanez Samuel Burgett, Yamilka Juan.N. R.N. Blood Culture Stat 14:45 07/23/2024 14:49 07/23/2024 15:11 07/23/2024 [Chris] # 1 Stat Olman Yanez Samuel Burgett, Yamilka BrewsterN. R.N. Blood Culture Stat 14:45 07/23/2024 14:49 07/23/2024 15:11 07/23/2024 [Chris] # 2 Stat Olman Yanez Samuel Burgett, 3 of 4 Order Sheet D.O. R.N. R.N. Lactate, Serum Stat Stat 14:45 07/23/2024 14:49 07/23/2024 15:11 07/23/2024 Olman Yanez Samuel Burgett, Yamilka Juan.N. R.N. DIAGNOSTIC STUDY ORDERS Order Description Priority Entered Acknowledged Completed Chest 1V Stat Stat 12:38 07/23/2024 12:40 12:57 Michele Cho 07/23/2024 07/23/2024 Minh Contreras, R.N. R.N. Reason for Study: Chest Pain STAFF ORDERS Order Description Priority Entered Acknowledged Collected Completed Vital signs every 15 12:38 07/23/2024 12:40 07/23/2024 12:56 07/23/2024 minutes Minh Yanez Lucas Eastep, D.ONimo Juan.N. R.N. Registered Public Surveyor 12:38 07/23/2024 12:40 07/23/2024 12:56 07/23/2024 Minh Yanez Lucas Eastep, D.O. R.N. RNimoN. IV Saline Lock 12:38 07/23/2024 12:40 07/23/2024 12:56 07/23/2024 Minh Yanez Lucas Eastep, D.O. R.N. RDwaine [Electronically signed by Landon (more content not included)... Normal [facility] ED PHYSICIAN CLINICAL REPORT on 07-24-2024 ED PHYSICIAN CLINICAL REPORT Narrative Physician Clinical Narrative [address] [place] [address] [phone] 07/23/2024 Patient: BRAVO FREEDMAN Sex: Male : 1960 Age: 64y Primary Insurance: [employer] OUTPATIENT Policy Number: [id number] Group Number: [id number] Subscriber: Other Disposition: Admit to [facility] Disposition Decision Time: 14:47 07/23/2024 Departure Time: 16:33 07/23/2024 Measurements Wt: 127.0 kg, Ht/Gavino: 69.0 in, BMI: 41.35 Initial Vital Sign Measured Time BP MAP HR RR O2Sat ETCO2 Temp Pain GCS RTS 12:39 07/23/2024 80/57 61 82 Time Seen: 12:19 07/23/2024. Arrived- By ambulance. Historian- patient. Independent historian- EMS personnel and family. HISTORY OF PRESENT ILLNESS Chief Complaint: CHEST PAIN and DISCOMFORT. It is described as pressure and tightness. This started just prior to arrival and is still present. REVIEW OF SYSTEMS NEUROLOGICAL: No fainting episodes. GI: No abdominal pain. SKIN: No skin rash. CONSTITUTIONAL: No fever or chills. PAST HISTORY 1 16 Narrative See nurses notes. Atrial Fibrillation Congestive Heart Failure COPD - Chronic Obstructive Pulmonary Disease Diabetes Mellitus Type 2 Gastroesophageal Reflux Disease Myocardial Infarction Supraventricular arrhythmia Surgeries: Aortic aneurysm repair Appendectomy kidney surgery Medications: albuterol sulfate 0.63 mg/3 mL solution for nebulization: three times a day as needed. albuterol sulfate HFA 90 mcg/actuation aerosol inhaler: 2 inhalations four times a day as needed. alfuzosin ER 10 mg tablet,extended release 24 hr: once a day . amLODIPine 10 mg tablet: once a day . aspirin 81 mg tablet,delayed release: once a day . atorvastatin 80 mg tablet: at bedtime. coenzyme Q10 200 mg capsule: once a day . Eliquis 5 mg tablet: twice a day . furosemide 20 mg tablet: once a day . isosorbide mononitrate ER 30 mg tablet,extended release 24 hr: once a day . losartan 25 mg tablet: once a day . MA mg once a day . metoprolol tartrate 50 mg tablet: twice a day . Ozempic 0.25 mg or 0.5 mg (2 mg/3 mL) subcutaneous pen injector: weekly . pantoprazole 40 mg tablet,delayed release: once a day . sertraline 50 mg tablet: once a day . Vitamin B-6 100 mg tablet: once a day . Vitamin C 500 mg tablet: once a day . Vitamin D3 125 mcg (5,000 unit) tablet: once a day . Allergies: codeine 2 of 16 Narrative SOCIAL HISTORY Never smoker. No drug use. ADDITIONAL NOTES The nursing notes have been reviewed. PHYSICAL EXAM Appearance: Alert. Oriented X3. No acute distress. Anxious. Appears to be in pain. Eyes: Pupils equal, round and reactive to light. Eyes normal inspection. ENT: Ears normal. Nose normal. Neck: Normal inspection. Neck supple. CVS: Tachycardia. Abnormal rhythm. Respiratory: No respiratory distress. Breath sounds normal. Abdomen: Soft and nontender. Skin: Skin warm and dry. Normal skin color. Normal skin turgor. Neuro: Oriented X 3. No motor deficit. LABS, X-RAYS, AND EKG 12-LEAD EKG: EKG time: 13:01 07/23/2024. Rate: 72. Normal CLIFF. Normal axis. Changes present when compared to prior EKG. The study has been interpreted contemporaneously by me. Interpretation time: 13:07/23/2024. 12-LEAD EKG #2: EKG time: 07:02 07/23/2024. Atrial flutter. Rate: 156. Tachycardia. Atrial fibrillation. Normal CLIFF. Normal axis. Normal ST and T waves. The study has been interpreted contemporaneously by me. Laboratory Tests: APTT Final SRUTHI: 07/23/2024 12:44:00 EDT MsgRcvd: 07/23/2024 14:53 EDT Lab Test Result Reference Status Received Comments 07/23/2024 14:53 PTT 34.5 sec 25.4 - 38.4 Final EDT 3 of 16 Narrative CBC + DIFF Final SRUTHI: 07/23/2024 12:44:00 EDT MsgRcvd: 07/23/2024 12:58 EDT Lab Test Result Reference Status Received Comments 07/23/2024 12:58 CBC-COMPLETE CBC + DIFF Final EDT BLOOD COUNT 07/23/2024 12:58 WBC 6.1 x 10/UL 4.5 - 10.8 Final EDT 4.37 x 10/UL 07/23/2024 12:58 RBC 4.50 - 6.00 Final Below low normal EDT 07/23/2024 12:58 HEMOGLOBIN 13.5 g/dl 13.0 - 17.5 Final EDT 39.4 % 07/23/2024 12:58 HEMATOCRIT 40.0 - 52.0 Final Below low normal EDT 07/23/2024 12:58 MCV 90 fl 81 - 98 Final EDT 07/23/2024 12:58 MCH 31 pg 27 - 33 Final EDT 07/23/2024 12:58 MCHC 34 X10 3 32 - 36 Final EDT 07/23/2024 12:58 RDW/CV 14.0 % 12.0 - 15.6 Final EDT 07/23/2024 12:58 PLATELET 179 x10/UL 150 - 450 Final EDT 07/23/2024 12:58 AUTOMATED MPV 7.5 fl 6.4 - 10.5 Final EDT DIFFERENTIAL 07/23/2024 12:58 NEUT % 53.1 % 46.0 - 76.0 Final EDT 4 of 16 Narrative Lab Test Result Reference Status Received Comments 07/23/2024 12:58 LYMPH % 31.5 % 20.0 - 45.0 Final EDT 11.1 % 07/23/2024 12:58 MONOS % 0.0 - 10.0 Fin (more content not included)... Normal [facility] ED SUPER BILLon 07-24-2024 ED SUPER BILL Superbill [address] [address] [phone] 07/23/2024 Patient: BRAVO FREEDMAN Sex: Male : 1960 Age: 64y Item Facility Professional Category Description Code Code Quantity Fee Total Nurse/E/M EMERGENCY 334981 1 $0.00 $0.00 DEPARTMENT VISIT HIGH/URGENT SEVERITY (33796-93) Nurse/IV/IM/Infusions Drip/IVPB initial 519296 1 $0.00 $0.00 (19152) Nurse/IV/IM/Infusions IVP additional 651762 1 $0.00 $0.00 push (48518) Nurse/Procedures Respiratory 885784 1 $0.00 $0.00 therapy - inhalation (95633) Grand Total $0.00 Providers Michele Cho D.O. 1 of 2 [facility] Chief Complaint CHEST PAIN and DISCOMFORT. Principal Diagnosis Chest pain characterized as discomfort, pressure and tightness. Longstanding sinus tachycardia. Abnormal EKG: atrial fibrillation. Bacterial bronchopneumonia with hypoxemia. ICD-10 Codes R07.89: Other chest pain I49.8: Other specified cardiac arrhythmias R00.0: Tachycardia, unspecified I48.91: Unspecified atrial fibrillation R94.31: Abnormal electrocardiogram [ECG] [EKG] J15.9: Unspecified bacterial pneumonia J18.0: Bronchopneumonia, unspecified organism R09.02: Hypoxemia J18.9: Pneumonia, unspecified organism 2 of 2 Normal [facility] ED VISIT SUMMARYon ED VISIT SUMMARY Visit Overview Visit Overview [address] [address] [id number] 07/23/2024 Patient: BRAVO FREEDMAN Sex: Male : 1960 Age: 64y 07/24/2024 07:04 AM EDT ED Arrival:12:28 07/23/2024 EDT Status: Recent Travel:no Language:eng Adv Directive: Isolation Status: Ethnicity:N Fall Risk:risk Infectious Disease Exposure:no Measurements:5'9 / 175.3 Self-Harm Status:risk Sepsis Screen:negative cm 280.0 lb / 127.0 kg Chief Complaint:CHEST DISCOMFORT, CHEST PAIN, and ([place]) ALLERGIES codeine HOME MEDICATIONS albuterol sulfate 0.63 mg/3 mL solution for nebulization: three times a day as needed. albuterol sulfate HFA 90 mcg/actuation aerosol inhaler: 2 inhalations four times a day as needed. alfuzosin ER 10 mg tablet,extended release 24 hr: once a day . amLODIPine 10 mg tablet: once a day . aspirin 81 mg tablet,delayed release: once a day . atorvastatin 80 mg tablet: at bedtime. 1 Visit Overview coenzyme Q10 200 mg capsule: once a day . Eliquis 5 mg tablet: twice a day . furosemide 20 mg tablet: once a day . isosorbide mononitrate ER 30 mg tablet,extended release 24 hr: once a day . losartan 25 mg tablet: once a day . MA mg once a day . metoprolol tartrate 50 mg tablet: twice a day . Ozempic 0.25 mg or 0.5 mg (2 mg/3 mL) subcutaneous pen injector: weekly . pantoprazole 40 mg tablet,delayed release: once a day . sertraline 50 mg tablet: once a day . Vitamin B-6 100 mg tablet: once a day . Vitamin C 500 mg tablet: once a day . Vitamin D3 125 mcg (5,000 unit) tablet: once a day . PAST MEDICAL HISTORY / PROBLEMS Atrial Fibrillation Congestive Heart Failure COPD - Chronic Obstructive Pulmonary Disease Diabetes Mellitus Type 2 Gastroesophageal Reflux Disease Myocardial Infarction See nurses notes Supraventricular arrhythmia PAST SURGICAL HISTORY Aortic aneurysm repair Appendectomy SOCIAL HISTORY Smoking status: No Alcohol use: Yes Drug use: No ED COURSE 4 Visit Overview MEDICATIONS GIVEN IN EMERGENCY DEPARTMENT 12:50 07/23/24 Diltiazem (Cardizem) IVP 15 mg 13:24 07/23/24 Diltiazem (Cardizem) PO 30 mg 15:09 07/23/24 Azithromycin (Zithromax) PO 500 mg CefTRIAXone (Rocephin) IVPB 2gm/50ml NS 2 g diluted in sodium chloride IVPB 0.9 15:10 07/23/24 % Minibag+ 50 mL 100 mL/hr over 1 hour(s) 15:30 07/23/24 Albuterol-Ipratropium (DuoNeb) 3mg/0.5mg Neb Tx 3 mL IV SITE INFORMATION INTAKE OUTPUT REASSESMENT (most recent) 15:35 07/23/24. Post assessment. O2 saturation- 95 (FIO2-2 liter/min nasal cannula). Heart rate: (65). Respiratory rate: (18). No respiratory distress. Respirations not labored. (diminished bilat through out). VITAL SIGNS First Vitals Last Vitals Temp 12:39 07/23/24 Temp 16:25 07/23/24 BP 12:39 07/23/24 80/57 BP 16:25 07/23/24 HR 12:39 07/23/24 82 HR 16:25 07/23/24 65 RR 12:39 07/23/24 RR 16:25 07/23/24 O2 Sat 12:39 07/23/24 O2 Sat 16:25 07/23/24 93% Pain 12:39 07/23/24 Pain 16:25 07/23/24 ETCO2 12:39 07/23/24 ETCO2 16:25 07/23/24 GCS 12:39 07/23/24 GCS 16:25 07/23/24 RTS 12:39 07/23/24 RTS 16:25 07/23/24 PROCEDURES NURSING INTERVENTIONS Respiratory therapy LABS / STUDIES LABS / STUDIES ORDERED 3 of 4 Visit Overview Blood Culture [Chris] # 1 Blood Culture [Chris] # 2 BNP CBC w Diff Chest 1V CMP EKG - ED Flu Swab (Influenzae AAg) Lactate, Serum PT with INR PTT Rapid COVID (SARS) ANTIGEN TEST Troponin-I Protocol (STAT 1hr) Troponin-I Protocol (STAT 1hr) CLINICAL IMPRESSION ABNORMAL EKG: ATRIAL FIBRILLATION BACTERIAL BRONCHOPNEUMONIA WITH HYPOXEMIA CHEST PAIN CHARACTERIZED DISCOMFORT, PRESSURE AND TIGHTNESS LONGSTANDING SINUS TACHYCARDIA 4 of 4 Normal [facility] ED VITALS FLOW SHEETon 07-24 ED VITALS FLOW SHEET Vitals Vital Sign Flow Sheet [address] [place] [address] [phone] 07/23/2024 Patient: BRAVO FREEDMAN Sex: Male : 1960 Age: 64y Measurements Wt: 127.0 kg, Ht/Gavino: 69.0 in, BMI: 41.35 Measured Time BP MAP HR RR O2Sat ETCO2 Temp Pain GCS RTS 16:25 07/23/2024 65 93% 16:20 07/23/2024 65 91% 16:18 07/23/2024 151/98 118 63 16:15 07/23/2024 63 93% 16:10 07/23/2024 62 92% 16:05 07/23/2024 63 93% 16:03 07/23/2024 143/93 115 73 16:00 07/23/2024 76 92% 15:55 07/23/2024 64 90% 15:50 07/23/2024 67 93% 15:48 07/23/2024 161/102 121 60 15:45 07/23/2024 66 94% 15:40 07/23/2024 69 93% 15:35 07/23/2024 66 91% 15:33 07/23/2024 182/135 142 66 1 of 3 Vitals Measured Time BP MAP HR RR O2Sat ETCO2 Temp Pain GCS RTS 15:30 07/23/2024 64 95% 15:25 07/23/2024 64 94% 15:20 07/23/2024 65 94% 15:18 07/23/2024 155/99 115 62 15:15 07/23/2024 64 94% 15:10 07/23/2024 63 93% 15:05 07/23/2024 64 94% 15:03 07/23/2024 153/103 112 61 15:00 07/23/2024 65 95% 14:55 07/23/2024 65 95% 14:50 07/23/2024 66 95% 14:48 07/23/2024 111/87 95 72 14:45 07/23/2024 76 90% 14:40 07/23/2024 69 93% 14:35 07/23/2024 66 94% 14:33 07/23/2024 108/74 84 63 14:30 07/23/2024 69 92% 14:25 07/23/2024 68 94% 14:20 07/23/2024 69 93% 14:18 07/23/2024 130/81 93 68 14:15 07/23/2024 70 93% 14:10 07/23/2024 69 93% 14:05 07/23/2024 69 94% 14:03 07/23/2024 124/81 91 67 14:00 07/23/2024 71 93% 2 of 3 Vitals Measured Time BP MAP HR RR O2Sat ETCO2 Temp Pain GCS RTS 13:55 07/23/2024 69 94% 13:50 07/23/2024 70 91% 13:48 07/23/2024 89/57 64 69 13:45 07/23/2024 73 94% 13:40 07/23/2024 72 94% 13:35 07/23/2024 73 94% 13:33 07/23/2024 104/54 63 71 13:30 07/23/2024 72 94% 13:25 07/23/2024 76 93% 13:20 07/23/2024 73 94% 13:19 07/23/2024 102/59 68 71 13:15 07/23/2024 74 94% 13:10 07/23/2024 71 93% 13:05 07/23/2024 72 94% 13:05 07/23/2024 104/63 72 71 13:00 07/23/2024 74 93% 12:59 07/23/2024 47/25 32 83 12:55 07/23/2024 88% 12:50 07/23/2024 170 93% 12:45 07/23/2024 159 93% 12:40 07/23/2024 156 92% 12:40 07/23/2024 157 24 91% NC 97.8 F 0 2L 12:39 07/23/2024 80/57 61 82 3 of 3 Normal [facility] APTTon 07-23-2024 aPTT Coag (Bld) [Time] 34.5 s Normal 25.4 - 38.4 [facility] Comment on above: Performed By: #### 2 [id number] #### [facility],[address] [place] [address] CBC + DIFFon 07-23-2024 Baso # 0.03 x10EE3/UL Normal 0.00 - 0.10 [facility] Comment on above: Performed By: #### 2 [id number] #### [facility],[address] [place] [address] Basophils/100 WBC (Bld) 0.5 % Normal 0.0 - 2.0 [facility] Comment on above: Performed By: #### 2 95693 #### [facility],[address] [place] [address] CBC + DIFF Normal [facility] Comment on above: Result Comment: CBC- COMPLETE BLOOD COUNT Performed By: #### 2 82190 #### [facility],[address] [place] [address] EO # 0.24 x10EE3/UL Normal 0.00 - 0.50 [facility] Comment on above: Performed By: #### 2 89532 #### [facility],[address] [place] [address] Eosinophils/100 WBC (Bld) 3.9 % Normal 0.0 - 7.0 [facility] Comment on above: Performed By: #### 2 84249 #### [facility],[address] [place] [address] Erythrocyte distribution width (RBC) [Ratio] 14.0 % Normal 12.0 - 15.6 [facility] Comment on above: Performed By: #### 2 31343 #### [facility],[address] [place] [address] Hematocrit (Bld) [Volume fraction] 39.4 % Low 40.0 - 52.0 [facility] Comment on above: Performed By: #### 2 54572 #### [facility],[address] [place] [address] Hemoglobin (Bld) [Mass/Vol] 13.5 g/dL Normal 13.0 - 17.5 [facility] Comment on above: Performed By: #### 2 04566 #### [facility],[address] [place] [address] Lymph # 1.92 x10EE3/UL Normal 0.80 - 2.80 [facility] Comment on above: Performed By: #### 2 86931 #### [facility],[address] [place] [address] Lymphocytes/100 WBC (Bld) 31.5 % Normal 20.0 - 45.0 [facility] Comment on above: Performed By: #### 2 05887 #### [facility],[address] [place], [place] [id number] MANUAL DIFF N/A Normal [facility] Comment on above: Performed By: #### 2 22031 #### [facility],[address] [place] [address] MCH (RBC) [Entitic mass] 31 pg Normal 27 - 33 [facility] Comment on above: Performed By: #### 2 87670 #### [place] [address] MCHC 34 X10 3 Normal 32 - 36 [facility] Comment on above: Performed By: #### 2 73483 #### [place] [id number] MCV (RBC) [Entitic vol] 90 fL Normal 81 - 98 [facility] Comment on above: Performed By: #### 2 61727 #### [facility],[address] [place], [place] [id number] [place] # 0.68 x10EE3/UL Normal 0.20 - 1.00 [facility] Comment on above: Performed By: #### 2 96348 #### [place] [address] MONOS % 11.1 % High 0.0 - 10.0 [facility] Comment on above: Performed By: #### 2 88856 #### [facility],[address] [place] [address] Morphology Hasmukh (Bld) [Interp] N/A Normal [facility] Comment on above: Performed By: #### 2 06797 #### [facility],[address] [place] [address] Neut # 3.24 x10EE3/UL Normal 1.50 - 7.10 [facility] Comment on above: Performed By: #### 2 37492 #### [address] [address] Neutrophils/100 WBC (Bld) 53.1 % Normal 46.0 - 76.0 [facility] Comment on above: Performed By: #### 2 52101 #### [address] [address] PLATELET 179 x10EE3/UL Normal 150 - 450 [facility] Comment on above: Performed By: #### 2 71087 #### [address] [address] Platelet mean volume (Bld) [Entitic vol] 7.5 fL Normal 6.4 - 10.5 [facility] Comment on above: Result Comment: AUTO MATED DIFFERENTIAL Performed By: #### 2 40543 #### [address] [address] RBC 4.37 x 10EE6/UL Low 4.50 - 6.00 [facility] Comment on above: Performed By: #### 2 78815 #### [address] [address] WBC 6.1 x 10EE3/UL Normal 4.5 - 10.8 [facility] Comment on above: Performed By: #### 2 16769 #### [address] [address] CHEST 1 VIEWon 07-23-2024 CHEST 1 VIEW [place] [address] Patient: BRAVO FREEDMAN Phone#: : [phone] Age: 64 Gender: M Pt. Type: ER Account: [id number] Location: [id number] Ordering: MICHELE CHO Exam Date: 07/23/2024/12:39 Family Phys: GRAHAM PRIEST Charge Code: 753405 Physician: [place] Order #: [id number]. Dose#: PROCEDURE: X-RAY CHEST 1 VIEW COMPARISON: None. INDICATIONS: Chest pain. FINDINGS: LUNGS: Patchy opacity at the lung bases. Poor inspiratory effort. VASCULATURE: Normal. Unremarkable pulmonary vasculature. CARDIAC: Normal. No cardiac silhouette abnormality or cardiomegaly. MEDIASTINUM: Aortic arch calcification PLEURA: Normal. No effusion or pleural thickening. BONES: Normal. No fracture or visible bony lesion. OTHER: Negative. CONCLUSION: 1. Patchy opacities at the lung bases concerning for infiltrates though given poor inspiratory effort may represent atelectasis Dictated by: Genevieve Carrillo MD on 07/23/2024 at 12:50 Approved by: Genevieve Carrillo MD on 07/23/2024 at 12:52 Normal [facility] CMP with eGFRon 07-23-2024 AGE 64 years Normal [facility] Comment on above: Performed By: #### 2 32113 #### [facility],[address] [place], [place] [id number] Albumin [Mass/Vol] 3.3 g/dL Low 3.4 - 5.0 [facility] Comment on above: Performed By: #### 2 37386 #### [facility],[address] [place] [address] Albumin/Globulin [Mass ratio] 1.0 {ratio} Normal 0.9 - 1.6 [facility] Comment on above: Performed By: #### 2 03657 #### [facility],[address] [place] [address] ALK PHOS 61 U/L Normal 46 - 116 [facility] Comment on above: Performed By: #### 2 [id number] #### [facility],[address] [place] [address] [id number] ALT [Catalytic activity/Vol] 31 U/L Normal 16 - 63 [facility] Comment on above: Performed By: #### 2 [id number] #### [facility],[address] [place] [address] [id number] Anion gap [Moles/Vol] 10 mmol/L Normal 10 - 20 [facility] Comment on above: Performed By: #### 2 [id number] #### [facility],[address] [place] [address] [id number] AST [Catalytic activity/Vol] 13 U/L Low 15 - 37 [facility] Comment on above: Performed By: #### 2 [id number] #### [facility],[address] [place] [address] [id number] B/C RATIO 19 ratio Normal 0 - 30 [facility] Comment on above: Performed By: #### 2 [id number] #### [facility],[address] [place] [address] [id number] Bilirubin [Mass/Vol] 0.4 mg/dL Normal 0.2 - 1.0 [facility] Comment on above: Performed By: #### 2 [id number] #### [facility],[address] [place] [address] 90915 Calcium [Mass/Vol] 8.6 mg/dL Normal 8.5 - 10.1 [facility] Comment on above: Performed By: #### 2 91202 #### [facility],[address] [place] [address] 85060 Chloride [Moles/Vol] 103 mmol/L Normal 98 - 107 [facility] Comment on above: Performed By: #### 2 71315 #### [facility],[address] [place] [address] 59158 CMP with eGFR Normal [facility] Comment on above: Result Comment: COMP REHENSIVE METABOLIC PANEL Performed By: #### 2 34410 #### [facility],[address] [place] [address] 25496 CO2 [Moles/Vol] 28.5 mmol/L Normal 21.0 - 32.0 [facility] Comment on above: Performed By: #### 2 34626 #### [facility],[address] [place] [address] 38682 Creatinine [Mass/Vol] 1.59 mg/dL High 0.70 - 1.30 [facility] Comment on above: Performed By: #### 2 95014 #### [facility],[address] [place] [address] 46995 eGFR 44 ML/MINUTE Low 60 - 999 [facility] Comment on above: Performed By: #### 2 84040 #### [facility],[address] [place] [address] 77198 eGFR(AA) 53 ML/MINUTE Low 60 - 999 [facility] Comment on above: Result Comment: ACCO RDING TO THE NATIONAL KIDNEY DISEASE EDUCATION PROGRAM(NKDE), A NORMAL eGFR IS A VALUE GREATER THAN OR EQUAL TO 60 ML/MIN/1.73 SQ METERS. CHRONIC KIDNEY DISEASE: <60mL/MIN/1.73 SQ METERS KIDNEY FAILURE: <15mL/MIN/1.73 SQ METERS THIS TEST SHOULD ONLY BE USED FOR PATIENTS 18 YEARS OF AGE AND OLDER. Performed By: #### 2 48347 #### [facility],[address] [place] [address] 23126 Globulin (S) [Mass/Vol] 3.4 g/dL Normal 1.5 - 3.8 [facility] Comment on above: Performed By: #### 2 71287 #### [facility],[address] [place] [address] 65278 Glucose [Mass/Vol] 173 mg/dL High 74 - 106 [facility] Comment on above: Performed By: #### 2 40204 #### [facility],[address] [place] [address] 96982 Potassium [Moles/Vol] 4.4 mmol/L Normal 3.5 - 5.1 [facility] Comment on above: Performed By: #### 2 09976 #### [facility],[address] [place] [address] 74475 Protein [Mass/Vol] 6.7 g/dL Normal 6.4 - 8.2 [facility] Comment on above: Performed By: #### 2 15073 #### [facility],[address] [place] [address] Sodium [Moles/Vol] 137 mmol/L Normal 136 - 145 [facility] Comment on above: Performed By: #### 2 70651 #### [place] [address] Urea nitrogen [Mass/Vol] 31 mg/dL High 7 - 18 [facility] Comment on above: Performed By: #### 2 74053 #### [place] [address] CORONAVIRUS (SARS) ANTIGEN T ESTon 07-23-2024 EXTERNAL QC DONE? YES Normal [facility] Comment on above: Performed By: #### 2 45506 #### [place] [address] INTERNAL CONTROL PASS Normal [facility] Comment on above: Performed By: #### 2 84836 #### [place] [address] SARS ANTIGEN Negative Normal NORMAL: NEGATIVE [facility] Comment on above: Performed By: #### 2 44349 #### [place] [address] SEND TO ? NO Normal [facility] Comment on above: Result Comment: SARS -CoV-2 THIS TEST IS BEING USED UNDER THE FDA EUA PROCEDURE. THIS ASSAY HAS BEEN VALIDATED AT [facility] FOR USE WITH NASAL AND NASOPHARYNGEAL SWAB SPECIMENS. INTERPRETIVE DATA TEST RESULTS SHOULD ALWAYS BE CONSIDERED IN THE CONTEXT OF CLINICAL OBSERVATIONS AND EPIDEMIOLOGICAL DATA IN MAKING FINAL DIAGNOSIS AND PATIENT MANAGEMENT DECISIONS. PATIENT MANAGEMENT SHOULD FOLLOW CURRENT CDC GUIDELINES. THE HUMAIRA SARS ANTIGEN DIXON DOES NOT DIFFERENTIATE BETWEEN SARS-CoV & SARS-CoV-2. A POSITIVE TEST RESULT INDICATES THE PRESENCE OF SARS-CoV-2 NUCLEOCAPSID PROTEIN ANTIGEN, AND THE PATIENT IS INFECTED WITH THE VIRUS AND PRESUMED TO BE CONTAGIOUS. A NEGATIVE TEST RESULT FOR THIS TEST MEANS THAT SARS-CoV-2 NUCLEOCAPSID PROTEIN ANTIGEN WAS NOT PRESENT IN THE SPECIMEN ABOVE THE LIMIT OF DETECTION. HOWEVER, A NEGATIVE RESULT DOES NOT RULE OUT COVID-19 AND SHOULD NOT BE USED THE SOLE BASIS FOR TREATMENT OR PATIENT MANAGEMENT DECISIONS. A NEGATIVE RESULT DOES NOT EXCLUDE THE POSSIBILITY OF COVID-19. NEGATIVE RESULTS, FROM PATIENTS WITH SYMPTOM ONSET BEYOND FIVE DAYS, SHOULD BE TREATED PRESUMPTIVE AND CONFIRMATION WITH A MOLECULAR ASSAY, IF NECESSARY, FOR PATIENT MANAGEMENT, MAY BE PERFORMED. WHEN DIAGNOSTIC TESTING IS NEGATIVE, THE POSSIBLILTY OF A FALSE NEGATIVE RESULT SHOULD BE CONSIDERED IN THE CONTEXT OF A PATIENT'S RECENT EXPOSURES AND THE PRESENCE OF CLINICAL SIGNS AND SYMPTOMS CONSISTENT WITH COVID-19. THE POSSIBILITY OF A FALSE NEGATIVE RESULT SHOULD ESPECIALLY BE CONSIDERED IF THE PATIENT'S RECENT EXPOSURES OR CLINICAL PRESENTATION INDICATE THAT COVID-19 IS LIKELY, AND DIAGNOSTIC TESTS FOR OTHER CAUSES OF ILLNESS (e.g., OTHER RESPIRATORY ILLNESS) ARE NEGATIVE. IF COVID-19 IS STILL SUSPECTED BASED ON EXPOSURE HISTORY TOGETHER WITH OTHER CLINICAL FINDINGS, RE-TESTING SHOULD BE CONSIDERED BY HEALTHCARE PROVIDERS IN CONSULTATION WITH PUBLIC HEALTH AUTHORITIES. Performed By: #### 2 29171 #### [place] [id number] CULTURE BLOOD [CHRIS]on Microscopic examination of blood, culture CULTURE BLOOD [CHRIS] _BLOOD CULTURE_ GO TO [facility] REPORTS AND ATTACHMENTS FOR SCANNED REPORT 07/30/24.1004.DNP.COMPLETE Normal [facility] Comment on above: Performed By: #### 2 07557 #### [place] [id number] Microscopic examination of blood, culture CULTURE BLOOD [CHRIS] _BLOOD CULTURE_ GO TO [facility] REPORTS AND ATTACHMENTS FOR SCANNED REPORT 07/30/24.1003.DNP.COMPLETE Normal [facility] Comment on above: Performed By: #### 2 90615 #### [facility],[address] [place] [address] 70633 INFLUENZA VIRUS RAPID A/Bon 07-23-2024 INFLUENZA VIRUS RAPID A/B INFLUENZA A NEGATIVE INFLUENZA B NEGATIVE INTERNAL NEG QC PASS INTERNAL POS QC PASS EXTERNAL QC DONE? YES SEND TO IC? NO A NEGATIVE TEST RESULT DOES NOT EXCLUDE INFECTION WITH INFLUENZA A OR B. THEREFORE, THE RESULTS OBTAINED FROM THIS FLU TEST SHOULD BE USED IN CONJUCTION WITH CLINICAL FINDINGS TO MAKE AN ACCURATE DIAGNOSIS. A POSITIVE RESULT DOES NOT RULE OUT CO-INFECTIONS WITH OTHER PATHOGENS OR IDENTIFY ANY SPECIFIC INFLUENZA A VIRUS SUBTYPE.CO-INFECTION WITH INFLUENZA A AND B IS RARE. IT IS RECOMMENDED THAT DUAL POSITIVE RESULTS BE CONFIRMED BY VIRAL CULTURE OR AN FDA-CLEARED INFLUENZA A AND B MOLECULAR ASSAY. INDIVIDUALS WHO HAVE RECEIVED NASALLY ADMINISTERED INFLUENZA A VACCINE MAY TEST POSITIVE IN COMMERCIALLY AVAILABLE INFLUENZA RAPID DIAGNOSTIC TESTS FOR UP TO THREE DAYS. RESULT CRITICAL? NO Normal [facility] Comment on above: Performed By: #### 2 54121 #### [facility],[address] [place], [place] [id number] LACTATEon 07-23-2024 Lactate [Moles/Vol] 0.9 mmol/L Normal 0.4 - 2.0 [facility] Comment on above: Performed By: #### 2 29220 #### [facility],[address] [place] [address] 69117 NT-proBNPon 07-23-2024 Natriuretic peptide B (Bld) [Mass/Vol] 223 pg/mL High 0 - 125 [facility] Comment on above: Performed By: #### 2 34081 #### [address] [address] PROTHROMBIN TIME AND INRon 0 07-23-2024 INR Coag (PPP) [Relative time] 1.2 {INR} Normal 0.8 - 1.2 [facility] Comment on above: Result Comment: T HE HEMOSIL THROMBOPLASTIN REAGENT USED IN THE PROTHROMBIN TIME TEST INTERACTS WITH THE DRUG CUBICIN (DAPTOMYCIN) AND WILL RESULT IN FALSELY ELEVATED PT / INR RESULTS INR INTERPRETATION INR INDICATION PREVENTION AND TREATMENT OF THROMBOEMBOLISM ASSOCIATED WITH: 2.0 - 3.0 ATRIAL FIBRILLATION, BIOPROSTHETIC HEART VALVES, PULMONARY EMBOLISM, VENOUS THROMBOSIS, SYSTEMIC EMBOLISM POST MYOCARDIAL INFARCTION 2.5 - 3.5 MECHANICAL HEART VALVES Performed By: #### 2 04735 #### [facility],[address] [place], [place] [id number] PROTHROMBIN TIME AND INR Normal [facility] Comment on above: Result Comment: PROT HROMBIN TIME AND INR Performed By: #### 2 60587 #### [facility],[address] [place] [address] PT-COUMADIN 14.0 sec Normal 9.3 - 14.1 [facility] Comment on above: Performed By: #### 2 15545 #### [facility],[address] [place] [address] TROPONINon 07-23-2024 HS TROPONIN 17.5 pg/mL Normal 0.0 - 76.2 [facility] Comment on above: Performed By: #### 2 04022 #### [facility],[address] [place] [address] HS TROPONIN 10.4 pg/mL Normal 0.0 - 76.2 [facility] Comment on above: Performed By: #### 2 85732 #### [facility],[address] [place], [place] [phone] CMP with eGFRon 07-07-2024 AGE 64 years Normal [facility] Comment on above: Performed By: #### 2 83839 #### [facility],[address] [place] [address] 76356 Albumin [Mass/Vol] 3.7 g/dL Normal 3.4 - 5.0 [facility] Comment on above: Performed By: #### 2 03651 #### [facility],[address] [place] [address] 51557 Albumin/Globulin [Mass ratio] 1.1 {ratio} Normal 0.9 - 1.6 [facility] Comment on above: Performed By: #### 2 72952 #### [facility],[address] [place] [address] 86468 ALK PHOS 46 U/L Normal 46 - 116 [facility] Comment on above: Performed By: #### 2 59759 #### [facility],[address] [place] [address] 99841 ALT [Catalytic activity/Vol] 36 U/L Normal 16 - 63 [facility] Comment on above: Performed By: #### 2 20606 #### [facility],[address] [place] [address] 85053 Anion gap [Moles/Vol] 11 mmol/L Normal 10 - 20 [facility] Comment on above: Performed By: #### 2 39183 #### [facility],[address] [place] [address] 01241 AST [Catalytic activity/Vol] 15 U/L Normal 15 - 37 [facility] Comment on above: Performed By: #### 2 61212 #### [facility],[address] [place] [address] 51033 B/C RATIO 18 ratio Normal 0 - 30 [facility] Comment on above: Performed By: #### 2 52005 #### [facility],[address] [place] [address] 48496 Bilirubin [Mass/Vol] 0.6 mg/dL Normal 0.2 - 1.0 [facility] Comment on above: Performed By: #### 2 14154 #### [facility],[address] [place] [address] 13420 Calcium [Mass/Vol] 8.7 mg/dL Normal 8.5 - 10.1 [facility] Comment on above: Performed By: #### 2 51999 #### [facility],[address] [place] [address] 97322 Chloride [Moles/Vol] 105 mmol/L Normal 98 - 107 [facility] Comment on above: Performed By: #### 2 32515 #### [facility],[address] [place] [address] 46075 CMP with eGFR Normal [facility] Comment on above: Result Comment: COMP REHENSIVE METABOLIC PANEL Performed By: #### 2 89056 #### [facility],[address] [place] [address] 31041 CO2 [Moles/Vol] 30.4 mmol/L Normal 21.0 - 32.0 [facility] Comment on above: Performed By: #### 2 97425 #### [facility],[address] [place] [address] 36967 Creatinine [Mass/Vol] 1.40 mg/dL High 0.70 - 1.30 [facility] Comment on above: Performed By: #### 2 06804 #### [facility],[address] [place] [address] 06006 eGFR 51 ML/MINUTE Low 60 - 999 [facility] Comment on above: Performed By: #### 2 66344 #### [facility],[address] [place] [address] 32634 GFR/1.73 sq M.predicted among non-blacks MDRD (S/P/Bld) [Vol rate/Area] mL/min/{1.73_m2} Normal 60 - 999 [facility] Comment on above: Result Comment: ACCO RDING TO THE NATIONAL KIDNEY DISEASE EDUCATION PROGRAM(NKDE), A NORMAL eGFR IS A VALUE GREATER THAN OR EQUAL TO 60 ML/MIN/1.73 SQ METERS. CHRONIC KIDNEY DISEASE: <60mL/MIN/1.73 SQ METERS KIDNEY FAILURE: <15mL/MIN/1.73 SQ METERS THIS TEST SHOULD ONLY BE USED FOR PATIENTS 18 YEARS OF AGE AND OLDER. Performed By: #### 2 10917 #### [facility],[address] [place] [address] 10513 Globulin (S) [Mass/Vol] 3.3 g/dL Normal 1.5 - 3.8 [facility] Comment on above: Performed By: #### 2 35118 #### [facility],[address] [place] [address] 34923 Glucose [Mass/Vol] 115 mg/dL High 74 - 106 [facility] Comment on above: Performed By: #### 2 01412 #### [facility],[address] [place] [address] 98530 Potassium [Moles/Vol] 4.3 mmol/L Normal 3.5 - 5.1 [facility] Comment on above: Performed By: #### 2 62859 #### [facility],[address] [place] [address] 45260 Protein [Mass/Vol] 7.0 g/dL Normal 6.4 - 8.2 [facility] Comment on above: Performed By: #### 2 76727 #### [facility],[address] [place] [address] 84612 Sodium [Moles/Vol] 142 mmol/L Normal 136 - 145 [facility] Comment on above: Performed By: #### 2 08346 #### [facility],[address] [place] [address] 69346 Urea nitrogen [Mass/Vol] 25 mg/dL High 7 - 18 [facility] Comment on above: Performed By: #### 2 28601 #### [facility],[address] [place] [address] 29812 Cardiology Visit Reporton Cardiology Visit Report [facility] [address] [place], [place] [address]. [address] [place], [place] [address] OFFICE VISIT Date of Service: 06/13/24 MR#: [id number] Acct: [id number] Name: JASMINABRAVO Drake Rep #: [id number] : 1960 Provider: CHIDI murcia Age/Sex: 63/M Location[place] [facility] [place] Status: Signed HPI HPI History of Present Illness Details: The patient is a 63 year old white male who presents to the office today for a cardiovascular follow up visit. He has a history of CAD, status post successful PCI of the mid circumflex artery following cardiac catheterization in September 2018. He also has a history of paroxysmal atrial fibrillation, hyperlipidemia, hypertension, diabetes, and obesity. He was a previous tobacco user. He had presented to the emergency room in September 2022 with chest discomfort he was noted to be in atrial fibrillation with a rapid ventricular response rate and he underwent DC cardioversion. He had been doing quite well but most recently he says that he has been under fair amount of stress due to family issues. He presented to the emergency room on November 28, 2023 with palpitations and a rapid narrow complex tachycardia with an EKG capturing it at a rate of 165 bpm. He was administered 6 mg and then 12 mg of adenosine with conversion to sinus rhythm. He presents for a follow-up visit. His last echocardiogram was from April 2022 demonstrating an ejection fraction of 65% with focal mitral valve calcification of the posterior leaflet. He did have a stress echo in 2019 which demonstrated no evidence of ischemia. He is status post Triple A repair in February 2024, with Dr. Stiles. He states that he is scheduled for a CT in 6 months to reassess this. He denies chest, arm, jaw, or neck discomfort. He states episode of palpitations lasting upwards to 15 minutes and one hour. He denies bilateral lower extremity edema. He denies claudication. He denies shortness of breath with activity, shortness of breath at rest, orthopnea, or PND. He denies chronic cough. He denies significant, sudden weight gain. He denies lightheadedness, dizziness, near-syncope, or syncope. He denies blood in urine, blood in stool, or epistaxis. He denies fever with chills. He denies myalgia. He denies fatigue. His exercise level has remained stable. 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 [employer]r Required: No Is patient in pain?: No Allergies rosuvastatin (From Crestor) Adverse Reaction (Severe, Verified 06/13/24 14:47) Severe myalgias (legs) codeine Adverse Reaction (Verified 06/13/24 14:47) Other Medications ???Medication ???Instructions ???Recorded ???Confirmed ???Type acetaminophen 325 mg tablet 650 mg (2 x 325 mg) PO Q6H PRN PRN 09/25/18 06/13/24 Rx Mild Pain (0-2/10) aspirin 81 mg tablet,delayed 81 mg PO DAILY@0800 heart health 0 09/25/18 06/13/24 Rx release atorvastatin 80 mg tablet 80 mg PO DAILY cholesterol 0 06/13/24 History ascorbic acid (vitamin C) 500 mg 500 mg PO DAILY vitamin 11/13/19 0 06/13/24 History capsule,extended release losartan 25 mg tablet 25 mg PO BID blood pressure #180 0 11/22/21 06/13/24 Rx tabs albuterol sulfate 90 mcg/actuation 2 puff inhalation Q4H PRN PRN 06/13/24 Rx aerosol inhaler (Ventolin HFA) Wheezing #8.5 grams pantoprazole 40 mg tablet,delayed 40 mg PO DAILY reflux 03/31/22 History release alfuzosin 10 mg tablet,extended 10 mg PO DAILY prostate 02/13/23 0 06/13/24 History release 24 hr metoprolol tartrate 50 mg tablet 50 mg PO BID blood pressure #60 06/13/24 Rx tabs apixaban 5 mg tablet (Eliquis) 5 mg PO BID blood thinner #180 tab s 10/15/23 06/13/24 Rx blood sugar diagnostic (Accu-Chek 11/28/23 04/14/24 History Guide test strips) lancets (Accu-Chek Softclix 11/28/23 04/14/24 History Lancets) cholecalciferol (vitamin D3) 125 125 mcg PO QDAY vitamin 12/07/23 0 06/13/24 History mcg (5,000 unit) capsule semaglutide 0.25 mg or 0.5 mg (2 0.25 mg subcut QWEEK diabetes 02/1106/13/24 History mg/3 mL) subcutaneous pen injector (Ozempic) coenzyme Q10 200 mg capsule (Co 200 mg PO DAILY supplement 4 06/13/24 History Q-10) magnesium 250 mg tablet 500 mg PO QDAY supplement 03/07/24 06/13/24 History amlodipine 10 mg tablet 10 mg PO DAILY #90 tabs 04/16/24 0 06/13/24 Rx furosemide 20 mg tablet (Lasix) 20 mg PO DAILY #90 tabs 04/16/24 0 06/13/24 (more content not included)... Normal [facility] Stress Reporton 05-27-2024 Stress Report [facility] [address] [place] [address] MR#: [id number] Acct: [id number] Name: BRAVO FREEDMAN Rep #: [id number] : 1960 63 From: Lee Elise MD Primary Care: Dr. Graham Priest MD Status: REG CLI Referring Dr: Syl Agarwal NP ARMED GUARD-C Sex: M C Stress Test Report Pharmacologic myocardial perfusion stress test. 63-year-old man with a history of chest pain Resting EKG demonstrates sinus rhythm with a rate of 62 bpm. Resting blood pressure is 122/74 mmHg. 0.4 mg of regadenoson was infused per usual protocol followed by rapid intravenous saline flush injection. Continuous EKG monitoring was performed. The maximum heart rate was 84 bpm which was 53% of max impacted heart rate the maximum workload was 1 metabolic equivalent. At rest there were no ST or T wave changes noted to suggest ischemia and at peak infusion nonspecific ST changes were noted which did not meet the criteria for ischemia. No clinical angina is noted. The final blood pressure was 110/60 mmHg. Myocardial perfusion protocol. 15 mCi of technetium 99m sestamibi was injected at rest. 0.4 mg of regadenoson was infused per usual protocol. At peak infusion 45 mCi of technetium 99m sestamibi was injected stress images were obtained stress and rest images were reconstructed and compared in the short axis vertical long and horizontal long axis. Gated images were also obtained. Perfusion SPECT analysis: Review of the stress images demonstrate normal uptake of tracer noted in all areas of the myocardium. There is a medium size area noted in the anteroseptal wall with reduced perfusion and on the resting images a similar pattern is noted. The above is suggestive of a previous anteroseptal infarct. There is no reversibility or improvement to suggest ischemia. Gated SPECT analysis: The gated ejection fraction is 73%. Conclusion: Normal pharmacologic myocardial perfusion stress test. Preserved ejection fraction. Previous anterior septal infarct present 05/27/241753 Date Lee Elise MD CC: CHIDI Agarwal; Dr. Graham Priest MD Date Dictated: 05/27/241751 Date Transcribed: 05/27/241751 Training Development Director: [place] Signed Normal [facility] BMP with eGFRon 05-09-2024 AGE 63 years Normal [facility] Comment on above: Performed By: #### 2 88513 #### [place] [id number] Anion gap [Moles/Vol] 8 mmol/L Low 10 - 20 [facility] Comment on above: Performed By: #### 2 62835 #### [address] [address] BMP with eGFR Normal [facility] Comment on above: Result Comment: BASI C METABOLIC PANEL Performed By: #### 2 18925 #### [address] [address] Calcium [Mass/Vol] 9.2 mg/dL Normal 8.5 - 10.1 [facility] Comment on above: Performed By: #### 2 67090 #### [address] [address] Chloride [Moles/Vol] 100 mmol/L Normal 98 - 107 [facility] Comment on above: Performed By: #### 2 27879 #### [address] [address] CO2 [Moles/Vol] 32.5 mmol/L High 21.0 - 32.0 [facility] Comment on above: Performed By: #### 2 10244 #### [facility],[address] [place] [address] 45047 Creatinine [Mass/Vol] 1.40 mg/dL High 0.70 - 1.30 [facility] Comment on above: Performed By: #### 2 54135 #### [facility],[address] [place] [address] 62783 eGFR 51 ML/MINUTE Low 60 - 999 [facility] Comment on above: Performed By: #### 2 71758 #### [address] [address] GFR/1.73 sq M.predicted among non-blacks MDRD (S/P/Bld) [Vol rate/Area] mL/min/{1.73_m2} Normal 60 - 999 [facility] Comment on above: Result Comment: ACCO RDING TO THE NATIONAL KIDNEY DISEASE EDUCATION PROGRAM(NKDE), A NORMAL eGFR IS A VALUE GREATER THAN OR EQUAL TO 60 ML/MIN/1.73 SQ METERS. CHRONIC KIDNEY DISEASE: <60mL/MIN/1.73 SQ METERS KIDNEY FAILURE: <15mL/MIN/1.73 SQ METERS THIS TEST SHOULD ONLY BE USED FOR PATIENTS 18 YEARS OF AGE AND OLDER. Performed By: #### 2 17964 #### [facility],[address] [place] [address] 44285 Glucose [Mass/Vol] 110 mg/dL High 74 - 106 [facility] Comment on above: Performed By: #### 2 00151 #### [address] [address] Potassium [Moles/Vol] 3.8 mmol/L Normal 3.5 - 5.1 [facility] Comment on above: Performed By: #### 2 56454 #### [address] [address] Sodium [Moles/Vol] 137 mmol/L Normal 136 - 145 [facility] Comment on above: Performed By: #### 2 95723 #### [facility],[address] [place] [address] 20264 Urea nitrogen [Mass/Vol] 26 mg/dL High 7 - 18 [facility] Comment on above: Performed By: #### 2 56550 #### [facility],[address] [place] [address] 06514 12 Lead EKG performed by [facility] [place] on 04-25-2024 12 Lead EKG performed by [facility] [address] [place], [place] [address] [address] 12 Lead EKG performed by [facility] [place] 04/25/24 1626 MR#: [id number] Acct: [id number] Name: BRAVO FREEDMAN Rep #: [id number] : 1960 63 From: Syl Agarwal ARMED GUARD ARMED GUARD-C Attending Dr: Syl Agarwal ARMED GUARD-C Status: DEP AMB Ordering Dr: Syl Agarwal ARMED GUARD ARMED GUARD-C Date: 04/25/24 Location: [facility] [place] Sex: M C Admitted: [facility] [place]/12 Lead EKG performed by [facility] [place] ECG Report Interpretation Sinus Rhythm WITHIN NORMAL LIMITSElectronically signed on 04/29/2024 at 08:38 by Lee [employer] Version [id number] 04/29/24 0840 Date Syl Agarwal NP ARMED GUARD-C CC: Dr. Graham Priest MD Date Dictated: 04/25/241625 Date Transcribed: 04/25/241625 Training Development Director: VIPIN Signed Normal [facility] Cardiology Visit Reporton Cardiology Visit Report [facility] [address] [place] [id number] OFFICE VISIT Date of Service: 04/25/24 MR#: [id number] Acct: [id number] Name: BRAVO FREEDMAN Rep #: [id number] : 1960 Provider: CHIDI murcia Age/Sex: 63/M Location[place] [facility] [place] [facility] [place] Status: Signed HPI HPI History of Present Illness Details: The patient is a 63 year old white male who presents to the office today for a cardiovascular follow up visit. He has a history of CAD, status post successful PCI of the mid circumflex artery following cardiac catheterization in September 2018. He also has a history of paroxysmal atrial fibrillation, hyperlipidemia, hypertension, diabetes, and obesity. He was a previous tobacco user. He had presented to the emergency room in September 2022 with chest discomfort he was noted to be in atrial fibrillation with a rapid ventricular response rate and he underwent DC cardioversion. He had been doing quite well but most recently he says that he has been under fair amount of stress due to family issues. He presented to the emergency room on November 28, 2023 with palpitations and a rapid narrow complex tachycardia with an EKG capturing it at a rate of 165 bpm. He was administered 6 mg and then 12 mg of adenosine with conversion to sinus rhythm. He presents for a follow-up visit. His last echocardiogram was from April 2022 demonstrating an ejection fraction of 65% with focal mitral valve calcification of the posterior leaflet. He did have a stress echo in 2019 which demonstrated no evidence of ischemia. He is status post Triple A repair in February 2024, with Dr. Stiles. He states that he is scheduled for a CT in 6 months to reassess this. He acknowledges daily chest discomfort. He describes as dull and heavy. This is continuous and located midsternal. This is worse with activity. He denies palpitations. He acknowledges preethi ateral lower extreme edema. He acknowledges shortness of breath activity. He denies shortness of breath at rest and orthopnea. He acknowledges lightheaded and dizziness. He denies near-syncope or syncope. He denies fatigue. 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 Is patient in pain?: No Allergies rosuvastatin (From Crestor) Adverse Reaction (Severe, Verified 04/25/24 15:51) Severe myalgias (legs) codeine Adverse Reaction (Verified 04/25/24 15:51) Other Medications ???Medication ???Instructions ???Recorded ???Confirmed ???Type acetaminophen 325 mg tablet 650 mg (2 x 325 mg) PO Q6H PRN PRN 09/25/18 04/25/24 Rx Mild Pain (0-2/10) aspirin 81 mg tablet,delayed 81 mg PO DAILY@0800 heart health 09/25/18 04/25/24 Rx release atorvastatin 80 mg tablet 80 mg PO DAILY cholesterol 05/16/19 04/25/24 History ascorbic acid (vitamin C) 500 mg 500 mg PO DAILY vitamin 11/13/19 04/25/24 History capsule,extended release losartan 25 mg tablet 25 mg PO BID blood pressure #180 11/22/21 04/25/24 Rx tabs albuterol sulfate 90 mcg/actuation 2 puff inhalation Q4H PRN PRN 02/23/22 04/25/24 Rx aerosol inhaler (Ventolin HFA) Wheezing #8.5 grams pantoprazole 40 mg tablet,delayed 40 mg PO DAILY reflux 03/31/22 04/25/24 History release alfuzosin 10 mg tablet,extended 10 mg PO DAILY prostate 02/13/23 04/25/24 History release 24 hr metoprolol tartrate 50 mg tablet 50 mg PO BID blood pressure #60 02/15/23 04/25/24 Rx tabs apixaban 5 mg tablet (Eliquis) 5 mg PO BID blood thinner #180 tabs 10/15/23 04/25/24 Rx blood sugar diagnostic (Accu-Chek 11/28/23 04/14/24 History Guide test strips) lancets (Accu-Chek Softclix 11/28/23 04/14/24 History Lancets) cholecalciferol (vitamin D3) 125 125 mcg PO QDAY vitamin 12/07/23 04/25/24 History mcg (5,000 unit) capsule semaglutide 0.25 mg or 0.5 mg (2 0.25 mg subcut QWEEK diabetes 02/23/24 04/25/24 History mg/3 mL) subcutaneous pen injector (Ozempic) coenzyme Q10 200 mg capsule (Co 200 mg PO DAILY supplement 03/07/24 04/25/24 History Q-10) magnesium 250 mg tablet 500 mg PO QDAY supplement 03/07/24 04/25/24 History metformin 500 mg tablet,extended 1,000 mg PO DAILY diabetes 03/07/24 04/25/24 History release 24 hr amlodipine 10 mg tablet 10 mg PO DAILY #90 tabs 04/16/24 04/25/24 Rx furosemide 20 mg tablet (Lasix) 20 mg PO DAILY #90 tabs 04/16/24 04/25/24 Rx guaifenesin 1,200 mg tablet, 1,200 mg PO BID #20 tabs 04/16/24 04/25/24 Rx extended release 12 hr (Mucus Relief ER) albuterol sulfate 0.63 mg/3 mL 0.63 mg inhalation TID (more content not included)... Normal [facility] CBC + DIFFon 04-21-2024 Baso # 0.05 x10EE3/UL Normal 0.00 - 0.10 [facility] Comment on above: Performed By: #### 2 [id number] #### [facility],[address] [place] [address] Basophils/100 WBC (Bld) 0.5 % Normal 0.0 - 2.0 [facility] Comment on above: Performed By: #### 2 51754 #### [facility],[address] [place] [address] CBC + DIFF Normal [facility] Comment on above: Result Comment: CBC- COMPLETE BLOOD COUNT Performed By: #### 2 75089 #### [facility],[address] [place] [address] EO # 0.06 x10EE3/UL Normal 0.00 - 0.50 [facility] Comment on above: Performed By: #### 2 52740 #### [place] [id number] Eosinophils/100 WBC (Bld) 0.5 % Normal 0.0 - 7.0 [facility] Comment on above: Performed By: #### 2 07747 #### [facility],[address] [place] [address] Erythrocyte distribution width (RBC) [Ratio] 14.4 % Normal 12.0 - 15.6 [facility] Comment on above: Performed By: #### 2 26830 #### [facility],[address] [place] [address] Hematocrit (Bld) [Volume fraction] 46.5 % Normal 40.0 - 52.0 [facility] Comment on above: Performed By: #### 2 18733 #### [facility],[address] [place] [address] Hemoglobin (Bld) [Mass/Vol] 15.3 g/dL Normal 13.0 - 17.5 [facility] Comment on above: Performed By: #### 2 18439 #### [facility],[address] [place] [address]288 Lymph # 1.87 x10EE3/UL Normal 0.80 - 2.80 [facility] Comment on above: Performed By: #### 2 22416 #### [facility],[address] [place], [place] [phone] Lymphocytes/100 WBC (Bld) 17.5 % Low 20.0 - 45.0 [facility] Comment on above: Performed By: #### 2 09412 #### [facility],[address] [place] [address] 35349 MANUAL DIFF N/A Normal [facility] Comment on above: Performed By: #### 2 67004 #### [facility],[address] [place] [address] 09188 MCH (RBC) [Entitic mass] 31 pg Normal 27 - 33 [facility] Comment on above: Performed By: #### 2 05585 #### [facility],[address] [place] [address] 24541 MCHC 33 X10 3 Normal 32 - 36 [facility] Comment on above: Performed By: #### 2 64375 #### [facility],[address] [place] [address] 44787 MCV (RBC) [Entitic vol] 93 fL Normal 81 - 98 [facility] Comment on above: Performed By: #### 2 91676 #### [facility],[address] [place] [address] 81158 Chester # 0.50 x10EE3/UL Normal 0.20 - 1.00 [facility] Comment on above: Performed By: #### 2 12815 #### [facility],[address] [place] [address] 60826 MONOS % 4.7 % Normal 0.0 - 10.0 [facility] Comment on above: Performed By: #### 2 09859 #### [facility],[address] [place] [address] 43001 Morphology Hasmukh (Bld) [Interp] N/A Normal [facility] Comment on above: Performed By: #### 2 23225 #### [facility],[address] [place] [address] 79998 Neut # 8.19 x10EE3/UL High 1.50 - 7.10 [facility] Comment on above: Performed By: #### 2 65658 #### [facility],[address] [place] [address] 12847 Neutrophils/100 WBC (Bld) 76.8 % High 46.0 - 76.0 [facility] Comment on above: Performed By: #### 2 84460 #### [facility],[address] [place] [address] 33467 PLATELET 282 x10EE3/UL Normal 150 - 450 [facility] Comment on above: Performed By: #### 2 07148 #### [facility],[address] [place] [address] 81687 Platelet mean volume (Bld) [Entitic vol] 7.5 fL Normal 6.4 - 10.5 [facility] Comment on above: Result Comment: AUTO MATED DIFFERENTIAL Performed By: #### 2 74566 #### [facility],[address] [place] [address] 24250 RBC 5.00 x 10EE6/UL Normal 4.50 - 6.00 [facility] Comment on above: Performed By: #### 2 46998 #### [facility],[address] [place] [address] 29262 WBC 10.7 x 10EE3/UL Normal 4.5 - 10.8 [facility] Comment on above: Performed By: #### 2 76856 #### [facility],[address] [place], [place] [id number] CMP with eGFRon 04-21-2024 AGE 63 years Normal [facility] Comment on above: Performed By: #### 2 15664 #### [facility],[address] [place] [address] 17467 Albumin [Mass/Vol] 3.9 g/dL Normal 3.4 - 5.0 [facility] Comment on above: Performed By: #### 2 63302 #### [facility],[address] [place] [address] 67074 Albumin/Globulin [Mass ratio] 1.2 {ratio} Normal 0.9 - 1.6 [facility] Comment on above: Performed By: #### 2 83131 #### [facility],[address] [place] [address] 23653 ALK PHOS 44 U/L Low 46 - 116 [facility] Comment on above: Performed By: #### 2 60446 #### [facility],[address] [place] [address] 09969 ALT [Catalytic activity/Vol] 46 U/L Normal 16 - 63 [facility] Comment on above: Performed By: #### 2 52348 #### [facility],[address] [place] [address] 92522 Anion gap [Moles/Vol] 12 mmol/L Normal 10 - 20 [facility] Comment on above: Performed By: #### 2 85356 #### [facility],[address] [place] [address] 86587 AST [Catalytic activity/Vol] 16 U/L Normal 15 - 37 [facility] Comment on above: Performed By: #### 2 72834 #### [facility],[address] [place] [address] 22059 B/C RATIO 23 ratio Normal 0 - 30 [facility] Comment on above: Performed By: #### 2 77885 #### [facility],[address] [place] [address] 14590 Bilirubin [Mass/Vol] 1.2 mg/dL High 0.2 - 1.0 [facility] Comment on above: Performed By: #### 2 54836 #### [facility],[address] [place] [address] 19797 Calcium [Mass/Vol] 9.1 mg/dL Normal 8.5 - 10.1 [facility] Comment on above: Performed By: #### 2 78352 #### [facility],[address] [place] [address] 97121 Chloride [Moles/Vol] 99 mmol/L Normal 98 - 107 [facility] Comment on above: Performed By: #### 2 26972 #### [facility],[address] [place] [address] 84065 CMP with eGFR Normal [facility] Comment on above: Result Comment: COMP REHENSIVE METABOLIC PANEL Performed By: #### 2 70517 #### [facility],[address] [place] [address] 91047 CO2 [Moles/Vol] 31.9 mmol/L Normal 21.0 - 32.0 [facility] Comment on above: Performed By: #### 2 05346 #### [facility],[address] [place] [address] 95314 Creatinine [Mass/Vol] 1.54 mg/dL High 0.70 - 1.30 [facility] Comment on above: Performed By: #### 2 14761 #### [facility],[address] [place] [address] 71443 eGFR 46 ML/MINUTE Low 60 - 999 [facility] Comment on above: Performed By: #### 2 09861 #### [address] [address] eGFR(AA) 56 ML/MINUTE Low 60 - 999 [facility] Comment on above: Result Comment: ACCO RDING TO THE NATIONAL KIDNEY DISEASE EDUCATION PROGRAM(NKDE), A NORMAL eGFR IS A VALUE GREATER THAN OR EQUAL TO 60 ML/MIN/1.73 SQ METERS. CHRONIC KIDNEY DISEASE: <60mL/MIN/1.73 SQ METERS KIDNEY FAILURE: <15mL/MIN/1.73 SQ METERS THIS TEST SHOULD ONLY BE USED FOR PATIENTS 18 YEARS OF AGE AND OLDER. Performed By: #### 2 60582 #### [facility],[address] [place] [address] 74392 Globulin (S) [Mass/Vol] 3.2 g/dL Normal 1.5 - 3.8 [facility] Comment on above: Performed By: #### 2 65976 #### [facility],[address] [place] [address] 42766 Glucose [Mass/Vol] 154 mg/dL High 74 - 106 [facility] Comment on above: Performed By: #### 2 96401 #### [facility],[address] [place] [address] 31667 Potassium [Moles/Vol] 4.2 mmol/L Normal 3.5 - 5.1 [facility] Comment on above: Performed By: #### 2 79910 #### [facility],[address] [place] [address] 12812 Protein [Mass/Vol] 7.1 g/dL Normal 6.4 - 8.2 [facility] Comment on above: Performed By: #### 2 97784 #### [facility],[address] [place] [address] 92629 Sodium [Moles/Vol] 139 mmol/L Normal 136 - 145 [facility] Comment on above: Performed By: #### 2 42333 #### [facility],[address] [place] [address] 60994 Urea nitrogen [Mass/Vol] 35 mg/dL High 7 - 18 [facility] Comment on above: Performed By: #### 2 27665 #### [facility],[address] [place] [address] 12597 HEMOGLOBIN A1C (POM)on 04-21 Glucose [Mass/Vol] 148.5 mg/dL High 0.0 - 0.0 [facility] Comment on above: Result Comment: Do HEMOGLOBIN A1C REFERENCE RANGESBLDo Suggested Diagnosis HbA1c(%) HbA1C (mmol/mol Diabetic >/=6.5 >/=48 Prediabetes 5.7 - 6.4 39 - 47 Normal <5.7 <39 Performed By: #### 2 91033 #### [facility],[address] [place] [address] 34257 HbA1c (Bld) [Mass fraction] 6.8 % High 0.0 - 6.5 [facility] Comment on above: Performed By: #### 2 09349 #### [facility],[address] [place] [address] 53389 LIPID PROFILEon 04-21-2024 Cholesterol [Mass/Vol] 154 mg/dL Normal 0 - 240 [facility] Comment on above: Performed By: #### 2 35635 #### [facility],[address] [place] [address] 57823 Cholesterol in HDL [Mass/Vol] 62 mg/dL High 40 - 60 [facility] Comment on above: Performed By: #### 2 82883 #### [facility],[address] [place] [address] 87745 Cholesterol in LDL [Mass/Vol] 73 mg/dL Normal 0 - 129 [facility] Comment on above: Performed By: #### 2 50481 #### [facility],[address] [place] [address] 26963 Cholesterol.total/Cho lesterol in HDL [Mass ratio] 2.5 {ratio} Normal 0.0 - 5.0 [facility] Comment on above: Performed By: #### 2 53479 #### [facility],[address] [place] [address] Lipid 1996 panel Normal [facility] Comment on above: Result Comment: LIPI D PROFILE Performed By: #### 2 49480 #### [facility],[address] [place], [place] [id number] Triglyceride [Mass/Vol] 96 mg/dL Normal 0 - 150 [facility] Comment on above: Performed By: #### 2 44279 #### [facility],[address] [place] [address] 17453 TSHon 04-21-2024 TSH Qn 1.07 m[IU]/L Normal 0.35 - 3.74 [facility] Comment on above: Performed By: #### 2 49507 #### [facility],[address] [place], [place] [id number] URINE MICROALBUMIN W/CREATIN INE, RANDOMon 04-21-2024 CREATININE UR 17.95 mg/dl Normal [facility] Comment on above: Performed By: #### 2 10948 #### [facility],[address] [place] [address] 67950 MICROALBUMIN UR 0.8 mg/dL Normal 0.1 - 25.1 [facility] Comment on above: Performed By: #### 2 23876 #### [facility],[address] [place] [address] 23802 UACR 45 mg/g Normal [facility] Comment on above: Performed By: #### 2 49357 #### [facility],[address] [place] [address] 02814 VITAMIN D, 25 HYDROXYon 12-0 VitD 71.50 ng/mL Normal 30.00 - 100 [facility] Comment on above: Result Comment: 25-O HD3 indicates both endogenous production and supplementation. 25-OHD2 is an indicator of exogenous sources, such as diet or supplementation. Therapy is based on measurement of Total 25-OHD, with levels <20 ng/mL indicative of Vitamin D deficiency, while levels between 20 ng/mL and 30 ng/mL suggest insufficiency. Optimal levels are >=30ng/mL. Vitamin D, 25-OH D3 Not Established Vitamin D, 25-OH D2 Not Established Performed By: #### 2 22449 #### [facility],[address] [place] [address] 89445 Culture, Blood (WB)on 2023 CUB Blood cultures x2, f rom two different sites No growth in 5 days. Normal [facility] Comment on above: Performed By: #### L 501.080 #### [facility] [address] [place], [address] Basic Metabolic Profile (BMP )on 04-16-2024 BUN/CRE 22.1 RATIO High 10-20 [facility] Comment on above: Performed By: #### L 501.5200, L500.2500 #### [facility] [address] [place], [address] CA,Total 10.2 mg/dL High 8.5-10.1 [facility] Comment on above: Performed By: #### L 501.5200, L500.2500 #### [facility] [address] [place], [address] Chloride [Moles/Vol] 96 mmol/L Low 98-107 [facility] Comment on above: Performed By: #### L 501.5200, L500.2500 #### [facility] [address] [place], [address] CO2 [Moles/Vol] 27.0 mmol/L Normal 21.0-32.0 [facility] Comment on above: Performed By: #### L 501.5200, L500.2500 #### [facility] [address] [place], [address] Creatinine [Mass/Vol] 1.81 mg/dL High 0.70-1.30 [facility] Comment on above: Result Comment: The validity of the calculated GFR GFRAA in patients over 70 years has not been determined. Clinical correlation is essential. Performed By: #### L 501.5200, L500.2500 #### [facility] [address] [place], [address] ECRCL 53.59 ml/min Normal [facility] Comment on above: Performed By: #### L 501.5200, L500.2500 #### [facility] [address] [place], [address] EST GFR - AA 49 mL/min Low >60 [facility] Comment on above: Result Comment: Afri can Vietnamese GFR Calc Performed By: #### L 501.5200, L500.2500 #### [facility] [address] [place], [address] GAP 9 Normal 5-15 [facility] Comment on above: Performed By: #### L 501.5200, L500.2500 #### [facility] [address] [place], [address] GFR/1.73 sq M.predicted among non-blacks MDRD (S/P/Bld) [Vol rate/Area] 40 mL/min/{1.73_m2} Low >60 [facility] Comment on above: Result Comment: Non- GFR Calc Performed By: #### L 501.5200, L500.2500 #### [facility] [address] [place], [address] Glucose [Mass/Vol] 256 mg/dL High 74-106 [facility] Comment on above: Result Comment: Gluc ose result greater than or equal to 200 mg/dL suggests DIABETES MELLITUS per A.D.A. criteria. Performed By: #### L 501.5200, L500.2500 #### [facility] [address] [place], [address] Potassium [Moles/Vol] 4.0 mmol/L Normal 3.5-5.1 [facility] Comment on above: Performed By: #### L 501.5200, L500.2500 #### [facility] [address] [place], [address] Sodium [Moles/Vol] 132 mmol/L Low 136-145 [facility] Comment on above: Performed By: #### L 501.5200, L500.2500 #### [facility] [address] [place], [address] Urea nitrogen [Mass/Vol] 40 mg/dL High 7-18 [facility] Comment on above: Performed By: #### L 501.5200, L500.2500 #### [facility] [address] [place], [address] Bedside Glucoseon 04-16-2024 FINGERSTICK GLU 298 mg/dL High 74-106 [facility] Comment on above: Result Comment: SARAH GEMENT OF PATIENT CARE PER NURSING PROTOCOL Performed By: #### L 501.1000, L501.1105 #### [facility] [address] [place], [address] FINGERSTICK GLU 174 mg/dL High 74-106 [facility] Comment on above: Result Comment: SARAH GEMENT OF PATIENT CARE PER NURSING PROTOCOL Performed By: #### L 501.080 #### [facility] [address] [place], [address] Magnesiumon 04-16-2024 Magnesium [Mass/Vol] 2.3 mg/dL Normal 1.6-2.6 [facility] Comment on above: Performed By: #### L 501.5200, L500.2500 #### [facility] [address] [place], [address] Phosphoruson 04-16-2024 Phosphate [Mass/Vol] 4.5 mg/dL Normal 2.5-4.9 [facility] Comment on above: Performed By: #### L 501.2300 #### [facility] [address] [place], [address] Urine Cultureon 04-16-2024 URC Below infection leve l. Coag Negative Staph Hondo Count 1000-10,000 Normal [facility] Comment on above: Performed By: #### L 503.6620 #### [facility] [address] [place], [address] BNP,B-Type NATRIURETIC PEPTI Maryanne 04-15-2024 Natriuretic peptide B (Bld) [Mass/Vol] 220.9 pg/mL High 0-100 [facility] Comment on above: Performed By: #### L 501.1000, L501.1105 #### [facility] [address] [place], [address] Basic Metabolic Profile (BMP )on 04-15-2024 BUN/CRE 18.3 RATIO Normal 10-20 [facility] Comment on above: Performed By: #### L 501.1000, L501.1105 #### [facility] [address] [place], [address] CA,Total 9.8 mg/dL Normal 8.5-10.1 [facility] Comment on above: Performed By: #### L 501.1000, L501.1105 #### [facility] [address] [place], [address] Chloride [Moles/Vol] 103 mmol/L Normal 98-107 [facility] Comment on above: Performed By: #### L 501.1000, L501.1105 #### [facility] [address] [place], [address] CO2 [Moles/Vol] 24.0 mmol/L Normal 21.0-32.0 [facility] Comment on above: Performed By: #### L 501.1000, L501.1105 #### [facility] [address] [place], [address] Creatinine [Mass/Vol] 1.15 mg/dL Normal 0.70-1.30 [facility] Comment on above: Result Comment: The validity of the calculated GFR GFRAA in patients over 70 years has not been determined. Clinical correlation is essential. Performed By: #### L 501.1000, L501.1105 #### [facility] [address] [place], [address] ECRCL 86.88 ml/min Normal [facility] Comment on above: Performed By: #### L 501.1000, L501.1105 #### [facility] [address] [place], [address] EST GFR - AA 82 mL/min Normal >60 [facility] Comment on above: Result Comment: Afri can Vietnamese GFR Calc Performed By: #### L 501.1000, L501.1105 #### [facility] [address] [place], [address] GAP 9 Normal 5-15 [facility] Comment on above: Performed By: #### L 501.1000, L501.1105 #### [facility] [address] [place], [address] GFR/1.73 sq M.predicted among non-blacks MDRD (S/P/Bld) [Vol rate/Area] 68 mL/min/{1.73_m2} Normal >60 [facility] Comment on above: Result Comment: Non- GFR Calc Performed By: #### L 501.1000, L501.1105 #### [facility] [address] [place], [address] Glucose [Mass/Vol] 173 mg/dL High 74-106 [facility] Comment on above: Result Comment: Fast ing Glucose result greater than or equal to 126 mg/dL suggests DIABETES MELLITUS per A.D.A. criteria. Performed By: #### L 501.1000, L501.1105 #### [facility] [address] [place], [address] Potassium [Moles/Vol] 4.3 mmol/L Normal 3.5-5.1 [facility] Comment on above: Performed By: #### L 501.1000, L501.1105 #### [facility] [address] [place], [address] Sodium [Moles/Vol] 136 mmol/L Normal 136-145 [facility] Comment on above: Performed By: #### L 501.1000, L501.1105 #### [facility] [address] [place], [address] Urea nitrogen [Mass/Vol] 21 mg/dL High 7-18 [facility] Comment on above: Performed By: #### L 501.1000, L501.1105 #### [facility] [address] [place], [address] Bedside Glucoseon 04-15-2024 FINGERSTICK GLU 193 mg/dL High 74-106 [facility] Comment on above: Result Comment: SARAH LANDRY OF PATIENT CARE PER NURSING PROTOCOL Performed By: #### L 501.1000, L501.1105 #### [facility] [address] [place], [address] FINGERSTICK GLU 186 mg/dL High 74-106 [facility] Comment on above: Result Comment: SARAH GEMENT OF PATIENT CARE PER NURSING PROTOCOL Performed By: #### L 501.080 #### [facility] [address] [place], [address] FINGERSTICK GLU 202 mg/dL High 74-106 [facility] Comment on above: Result Comment: SARAH GEMENT OF PATIENT CARE PER NURSING PROTOCOL Performed By: #### L 501.080 #### [facility] [address] [place], [address] FINGERSTICK GLU 177 mg/dL High 74-106 [facility] Comment on above: Result Comment: SARAH GEMENT OF PATIENT CARE PER NURSING PROTOCOL Performed By: #### L 501.080 #### [facility] [address] [place], [address] CBC W/Diff, Automatedon 12-0 3-2024 Absolute Lymph 1.14 X10 3/uL Normal 0.83-4.51 [facility] Comment on above: Performed By: #### L 501.1000, L501.1105 #### [facility] [address] [place], [address] Absolute Neut 7.6 X10 3/uL Normal 2.0-7.7 [facility] Comment on above: Performed By: #### L 501.1000, L501.1105 #### [facility] [address] [place], [address] Basophils/100 WBC (Bld) 0.1 % Normal 0-1 [facility] Comment on above: Performed By: #### L 501.1000, L501.1105 #### [facility] [address] [place], [address] Eosinophils/100 WBC (Bld) 0.0 % Normal 0-5 [facility] Comment on above: Performed By: #### L 501.1000, L501.1105 #### [facility] [address] [place], [address] Erythrocyte distribution width (RBC) [Ratio] 14.1 % Normal 11.6-14.6 [facility] Comment on above: Performed By: #### L 501.1000, L501.1105 #### [facility] [address] [place], [address] Hematocrit (Bld) [Volume fraction] 44.1 % Normal 40-54 [facility] Comment on above: Performed By: #### L 501.1000, L501.1105 #### [facility] [address] [place], [address] Hemoglobin (Bld) [Mass/Vol] 14.4 g/dL Normal 13.0-16.5 [facility] Comment on above: Performed By: #### L 501.1000, L501.1105 #### [facility] [address] [place], [address] IG% 1.000 High 0.0-0.9 [facility] Comment on above: Result Comment: IG% - Immature Granulocytes (promyelocytes, myelocytes and metamyelocytes) > 1% indicates that a LEFT SHIFT is Present. Performed By: #### L 501.1000, L501.1105 #### [facility] [address] [place], [address] Lymphocytes/100 WBC (Bld) 12.6 % Low 19-41 [facility] Comment on above: Performed By: #### L 501.1000, L501.1105 #### [facility] [address] [place], [address] MCH (RBC) [Entitic mass] 29.9 pg Normal 27.0-32.0 [facility] Comment on above: Performed By: #### L 501.1000, L501.1105 #### [facility] [address] [place], [address] MCHC (RBC) [Mass/Vol] 32.7 g/dL Normal 32-36 [facility] Comment on above: Performed By: #### L 501.1000, L501.1105 #### [facility] [address] [place], [address] MCV (RBC) [Entitic vol] 91.7 fL Normal 80-94 [facility] Comment on above: Performed By: #### L 501.1000, L501.1105 #### [facility] [address] [place], [address] Monocytes/100 WBC (Bld) 2.2 % Normal 0-10 [facility] Comment on above: Performed By: #### L 501.1000, L501.1105 #### [facility] [address] [place], [address] Neutrophils/100 WBC (Bld) 84.1 % High 47-70 [facility] Comment on above: Performed By: #### L 501.1000, L501.1105 #### [facility] [address] [place], [address] Nucleated RBC (Bld) [#/Vol] 0 10*3/uL Normal 0-5 [facility] Comment on above: Performed By: #### L 501.1000, L501.1105 #### [facility] [address] [place], [address] Platelet mean volume (Bld) [Entitic vol] 8.8 fL Normal 6.2-12.0 [facility] Comment on above: Performed By: #### L 501.1000, L501.1105 #### [facility] [address] [place], [address] Platelets (Bld) [#/Vol] 265 10*3/uL Normal 150-450 [facility] Comment on above: Performed By: #### L 501.1000, L501.1105 #### [facility] [address] [place], [address] RBC (Bld) [#/Vol] 4.81 10*6/uL Normal 4.6-6.2 [facility] Comment on above: Performed By: #### L 501.1000, L501.1105 #### [facility] [address] [facility] [place], [address] RDW SD 47.5 fl High 35.1-43.9 [facility] Comment on above: Performed By: #### L 501.1000, L501.1105 #### [facility] [address] [facility] [place], [address] WBC (Bld) [#/Vol] 9.1 10*3/uL Normal 4.4-11.0 [facility] Comment on above: Performed By: #### L 501.1000, L501.1105 #### [facility] [address] [facility] [place], [address] RESPIRATORY PANEL MOLECULARo n 04-15-2024 RP PANEL ADENOVIRUS Not Detected INFLUENZA A Not Detected INFLUENZA A (SUBTYPE H1) Not Detected INFLUENZA A (SUBTYPE H3) Not Detected INFLUENZA B Not Detected HUMAN METAPHNEUMO Not Detected PARAINFLUENZA 1 Not Detected PARAINFLUENZA 2 Not Detected PARAINFLUENZA 3 Not Detected PARAINFLUENZA 4 Not Detected RHINOVIRUS Not Detected RSV A Not Detected RSV B Not Detected Normal [facility] Comment on above: Performed By: #### L 503.6620 #### [facility] [address] [facility] [place], [address] 12 Lead EKGon 04-14-2024 12 Lead E[address] [facility] [address] [place] [address] 12 Lead EKG 04/14/24 1055 MR#: [id number] Acct: [id number] Name: BRAVO FREEDMAN Rep #: [id number] : 1960 63 From: Molly Beasley MD Attending Dr: Dr. Fernando Araya MD Status: ADM IN Ordering Dr: Arturo Lovett DO Date: 04/14/24 Location: [facility] Sex: M C Admitted: 04/14/24 Test Reason : SOB Blood Pressure : */* mmHG Vent. Rate : 65 BPM Atrial Rate : 65 BPM P-R Int : 198 ms QRS Dur : 86 ms QT Int : 440 ms P-R-T Axes : 77 37 -6 degrees QTcB Int : 457 ms Normal sinus rhythm Normal ECG Confirmed by Molly Beasley ([id number]), research editor STEVEN WORTHINGTON ([id number]) on 04/16/2024 6:33:31 AM Referred By: Confirmed By: Molly Beasley 04/16/24 0633 Date Molly Beasley MD CC: Dr. Graham Priest MD; Dr. Fernando Araya MD; Dr. Arturo Lovett DO Signed Normal [facility] BNP,B-Type NATRIURETIC PEPTI Maryanne 04-14-2024 Natriuretic peptide B (Bld) [Mass/Vol] 189.5 pg/mL High 0-100 [facility] Comment on above: Performed By: #### L 503.6620 #### [facility] [address] [place], [address] Bedside Glucoseon 04-14-2024 FINGERSTICK GLU 131 mg/dL High 74-106 [facility] Comment on above: Result Comment: SARHA GEMENT OF PATIENT CARE PER NURSING PROTOCOL Performed By: #### L 501.080 #### [facility] [address] [place], [address] FINGERSTICK GLU 138 mg/dL High 74-106 [facility] Comment on above: Result Comment: SARAH GEMENT OF PATIENT CARE PER NURSING PROTOCOL Performed By: #### L 501.080 #### [facility] [address] [place], [address] CBC W/Diff, Automatedon 12-0 2-4 Absolute Lymph 1.80 X10 3/uL Normal 0.83-4.51 [facility] Comment on above: Performed By: #### L 501.080 #### [facility] [address] [place], [address] Absolute Neut 4.6 X10 3/uL Normal 2.0-7.7 [facility] Comment on above: Performed By: #### L 501.080 #### [facility] [address] [place], [address] Basophils/100 WBC (Bld) 1.2 % High 0-1 [facility] Comment on above: Performed By: #### L 501.080 #### [facility] [address] [place], [address] Eosinophils/100 WBC (Bld) 2.2 % Normal 0-5 [facility] Comment on above: Performed By: #### L 501.080 #### [facility] [address] [place], [address] Erythrocyte distribution width (RBC) [Ratio] 14.1 % Normal 11.6-14.6 [facility] Comment on above: Performed By: #### L 501.080 #### [facility] [address] [place], [address] Hematocrit (Bld) [Volume fraction] 39.1 % Low 40-54 [facility] Comment on above: Performed By: #### L 501.080 #### [facility] [address] [place], [address] Hemoglobin (Bld) [Mass/Vol] 12.8 g/dL Low 13.0-16.5 [facility] Comment on above: Performed By: #### L 501.080 #### [facility] [address] [place], [address] IG% 0.700 Normal 0.0-0.9 [facility] Comment on above: Result Comment: IG% - Immature Granulocytes (promyelocytes, myelocytes and metamyelocytes) > 1% indicates that a LEFT SHIFT is Present. Performed By: #### L 501.080 #### [facility] [address] [place], [address] Lymphocytes/100 WBC (Bld) 24.6 % Normal 19-41 [facility] Comment on above: Performed By: #### L 501.080 #### [facility] [address] [place], [address] MCH (RBC) [Entitic mass] 30.6 pg Normal 27.0-32.0 [facility] Comment on above: Performed By: #### L 501.080 #### [facility] [address] [place], [address] MCHC (RBC) [Mass/Vol] 32.7 g/dL Normal 32-36 [facility] Comment on above: Performed By: #### L 501.080 #### [facility] [address] [place], [address] MCV (RBC) [Entitic vol] 93.5 fL Normal 80-94 [facility] Comment on above: Performed By: #### L 501.080 #### [facility] [address] [place], [address] Monocytes/100 WBC (Bld) 7.8 % Normal 0-10 [facility] Comment on above: Performed By: #### L 501.080 #### [facility] [address] [place], [address] Neutrophils/100 WBC (Bld) 63.5 % Normal 47-70 [facility] Comment on above: Performed By: #### L 501.080 #### [facility] [address] [place], [address] Nucleated RBC (Bld) [#/Vol] 0 10*3/uL Normal 0-5 [facility] Comment on above: Performed By: #### L 501.080 #### [facility] [address] [place], [address] Platelet mean volume (Bld) [Entitic vol] 9.2 fL Normal 6.2-12.0 [facility] Comment on above: Performed By: #### L 501.080 #### [facility] [address] [place], [address] Platelets (Bld) [#/Vol] 218 10*3/uL Normal 150-450 [facility] Comment on above: Performed By: #### L 501.080 #### [facility] [address] [place], [address] RBC (Bld) [#/Vol] 4.18 10*6/uL Low 4.6-6.2 [facility] Comment on above: Performed By: #### L 501.080 #### [facility] [address] [place], [address] RDW SD 47.8 fl High 35.1-43.9 [facility] Comment on above: Performed By: #### L 501.080 #### [facility] [address] [place], [address] WBC (Bld) [#/Vol] 7.3 10*3/uL Normal 4.4-11.0 [facility] Comment on above: Performed By: #### L 501.080 #### [facility] [address] [place], [address] Chest PA and Lateralon 04-14 Chest PA and Lateral [facility] [address] [place] [address] Chest PA and Lateral MR#: [id number] Acct: [id number] Name: BRAVO FREEDMAN Rep #: [id number] : 1960 M 63 From: Girish Martin MD PCP: Dr. Graham Priest MD Status: REG ER Study: Chest PA and Lateral Date of Exam: 04/14/24 Exam# [id number] Ordering Dr: Arturo Lovett DO [id number] STUDY: X-RAY CHEST REASON FOR EXAM: Male, 63 years old. sob TECHNIQUE: PA and lateral views of the chest. COMPARISON: 02/12/2023 FINDINGS: Some right lower lobe atelectasis. There is no demonstrated pleural abnormality. Normal size heart. Normal mediastinum and rachel. Normal visualized pulmonary arteries. Normal visualized aortic arch and descending thoracic aorta. Normal visualized thoracic spine. Normal visualized ribs, clavicles, and shoulders. There is no demonstrated abnormality of the visualized soft tissue structures of the upper abdomen. RAD/Chest PA and Lateral IMPRESSION: Some right lower lobe atelectasis. Electronically Signed: Girish Martin MD at 11:43 EST , CC: Dr. Graham Priest MD; Dr. Arturo Lovett DO Training Development Director: Signed Normal [facility] Comprehensive Metabolic Prof ilon 04-14-2024 Albumin [Mass/Vol] 3.6 g/dL Normal 3.2-5.0 [facility] Comment on above: Order Comment: 'TROP ' Serial specimen #1, #2 or #3: 1 Performed By: #### L 501.080 #### [facility] [address] [place], [address] Albumin/Globulin [Mass ratio] 1.2 {ratio} Normal 0.9-2.4 [facility] Comment on above: Order Comment: 'TROP ' Serial specimen #1, #2 or #3: 1 Performed By: #### L 501.080 #### [facility] [address] [place], [address] ALK P 47 U/L Normal 45-117 [facility] Comment on above: Order Comment: 'TROP ' Serial specimen #1, #2 or #3: 1 Performed By: #### L 501.080 #### [facility] [address] [place], [address] ALT [Catalytic activity/Vol] 41 U/L Normal 16-61 [facility] Comment on above: Order Comment: 'TROP ' Serial specimen #1, #2 or #3: 1 Performed By: #### L 501.080 #### [facility] [address] [place], [address] AST [Catalytic activity/Vol] 21 U/L Normal 15-37 [facility] Comment on above: Order Comment: 'TROP ' Serial specimen #1, #2 or #3: 1 Performed By: #### L 501.080 #### [facility] [address] [place], [address] Bilirubin [Mass/Vol] 0.60 mg/dL Normal 0.20-1.00 [facility] Comment on above: Order Comment: 'TROP ' Serial specimen #1, #2 or #3: 1 Result Comment: For patients on eltrombopag therapy, use of Dimension [place] TBIL is not recommended. Performed By: #### L 501.080 #### [facility] [address] [place], [address] BUN/CRE 17.4 RATIO Normal 10-20 [facility] Comment on above: Order Comment: 'TROP ' Serial specimen #1, #2 or #3: 1 Performed By: #### L 501.080 #### [facility] [address] [place], [address] CA,Total 9.2 mg/dL Normal 8.5-10.1 [facility] Comment on above: Order Comment: 'TROP ' Serial specimen #1, #2 or #3: 1 Performed By: #### L 501.080 #### [facility] [address] [place], [address] Chloride [Moles/Vol] 107 mmol/L Normal 98-107 [facility] Comment on above: Order Comment: 'TROP ' Serial specimen #1, #2 or #3: 1 Performed By: #### L 501.080 #### [facility] [address] [place], [address] CO2 [Moles/Vol] 27.0 mmol/L Normal 21.0-32.0 [facility] Comment on above: Order Comment: 'TROP ' Serial specimen #1, #2 or #3: 1 Performed By: #### L 501.080 #### [facility] [address] [place], [address] Creatinine [Mass/Vol] 1.32 mg/dL High 0.70-1.30 [facility] Comment on above: Order Comment: 'TROP ' Serial specimen #1, #2 or #3: 1 Result Comment: The validity of the calculated GFR GFRAA in patients over 70 years has not been determined. Clinical correlation is essential. Performed By: #### L 501.080 #### [facility] [address] [place], [address] EST GFR - AA 70 mL/min Normal >60 [facility] Comment on above: Order Comment: 'TROP ' Serial specimen #1, #2 or #3: 1 Result Comment: Afri can Vietnamese GFR Calc Performed By: #### L 501.080 #### [facility] [address] [place], [address] GAP 5 Normal 5-15 [facility] Comment on above: Order Comment: 'TROP ' Serial specimen #1, #2 or #3: 1 Performed By: #### L 501.080 #### [facility] [address] [place], [address] GFR/1.73 sq M.predicted among non-blacks MDRD (S/P/Bld) [Vol rate/Area] 58 mL/min/{1.73_m2} Low >60 [facility] Comment on above: Order Comment: 'TROP ' Serial specimen #1, #2 or #3: 1 Result Comment: Non- GFR Calc Performed By: #### L 501.080 #### [facility] [address] [place], [address] Globulin (S) [Mass/Vol] 3.0 g/dL Normal 2.2-4.2 [facility] Comment on above: Order Comment: 'TROP ' Serial specimen #1, #2 or #3: 1 Performed By: #### L 501.080 #### [facility] [address] [place], [address] Glucose [Mass/Vol] 123 mg/dL High 74-106 [facility] Comment on above: Order Comment: 'TROP ' Serial specimen #1, #2 or #3: 1 Result Comment: Fast ing Glucose result from 100 to 125 mg/dL suggests IMPAIRED HOMEOSTASIS per A.D.A. criteria. Performed By: #### L 501.080 #### [facility] [address] [place], [address] Potassium [Moles/Vol] 3.8 mmol/L Normal 3.5-5.1 [facility] Comment on above: Order Comment: 'TROP ' Serial specimen #1, #2 or #3: 1 Performed By: #### L 501.080 #### [facility] [address] [place], [address] Sodium [Moles/Vol] 139 mmol/L Normal 136-145 [facility] Comment on above: Order Comment: 'TROP ' Serial specimen #1, #2 or #3: 1 Performed By: #### L 501.080 #### [facility] [address] [place], [address] T PROT 6.6 g/dL Normal 6.4-8.2 [facility] Comment on above: Order Comment: 'TROP ' Serial specimen #1, #2 or #3: 1 Performed By: #### L 501.080 #### [facility] [address] [place], [address] Urea nitrogen [Mass/Vol] 23 mg/dL High 7-18 [facility] Comment on above: Order Comment: 'TROP ' Serial specimen #1, #2 or #3: 1 Performed By: #### L 501.080 #### [facility] [address] [place], [address] Emergency Department Summary on 04-14-2024 Emergency Department Summary [facility] Medical Records Department [address] [place] [address] Emergency Department Summary 04/14/24 MR#: [id number] Acct: [id number] Name: BRAVO FREEDMAN Rep #: [id number] : 1960 63 From: Arturo Lovett DO PCP: Dr. Graham Priest MD Status:REG ER Location: ED ADDENDUM by Dr. Arturo Lovett DO on 04/14/24 at 1412 Called and discussed case with hospitalist Dr. Vo who accept the patient for admission. Patient is agreeable this plan all question concerns answered bedside. 04/14/24 1412 Cosigner Signature (if applicable): cc: Dr. Graham Priest MD * Signed ADDENDUM by Dr. Arturo Lovett DO on 04/14/24 at 1400 There was miscommunication and the patient's oxygen saturation dropped to 85% while ambulating and was not 95% therefore the patient will require admission for a COPD exacerbation. Patient will be given Rocephin and azithromycin here he already received steroids. Patient's case will be discussed with hospitalist. 04/14/24 1400 Cosigner Signature (if applicable): cc: Dr. Graham Priest MD * Signed ADDENDUM by Dr. Arturo Lovett DO on 04/14/24 at 1355 Patient's CBC reviewed and showed no evidence leukocytosis white blood count normal at 6.1, hemoglobin was stable at 12, plate count was noted to be normal at 194. Patient sodium normal at 142, potassium was elevated at 5.6, creatinine was noted to be elevated to 1.60 his baseline appears to be around 1.30 patient CBC reviewed and showed no evidence leukocytosis white blood count normal at 7.3, hemoglobin of 12.8, platelet count was normal at 218. Patient's INR normal at 1.2, sodium normal 139, potassium normal 3.8, creatinine was 1.32 this appears to be around his baseline according to his previous blood draws, arctic acid normal at 1.2, AST and ALT were 21 and 41 respectively. Patient's troponin was noted be normal at 26 EKG reviewed and showed sinus rhythm with a rate of [address] changes noted. This was compared to a previous EKG from 03/12/2024 and is largely unchanged. Patient's urinalysis reviewed and showed no evidence of infection. Patient's chest x-ray reviewed by myself and by radiology which showed some right lower lobe atelectasis. Patient was ambulated here in the emergency department and had no evidence of hypoxia. On reevaluation the patient he is feeling significantly improved and would like to go home at this point time. Patient will be given a prescription for prednisone and doxycycline. He was advised to follow-up with his primary care physician and use his inhalers as prescribed. He was encouraged return with worsening symptoms or any concerns. He is agreeable this plan as well as significant other at bedside all question concerns answered he is discharged home in stable condition. 04/14/24 1355 Cosigner Signature (if applicable): cc: Dr. Graham Priest MD * Signed HPI History of Present Illness Chief Complaint: Shortness of Breath Narrative Narrative: Patient is a 63-year-old male with past medical history of AAA status postrepair, paroxysmal atrial fibrillation on Eliquis, hypertension, ORTIZ, hyperlipidemia, COPD who presented to the emergency dep artment the chief complaint of shortness of breath. Patient states that for the past few days he has had worsening shortness of breath which prompted him here for further evaluation management. Patient denies recent sick contacts. Patient does note that he has bilateral lower extremity swelling more than normal. Patient states that he has been using his inhalers at home however he states that he tries to not use them too much as this will trigger his atrial fibrillation. Patient denies any recent steroid use. Patient states that he has been compliant with his medications including Eliquis not missed any doses [facility] Medical History AAA (abdominal aortic aneurysm) History of cardioversion Afib PAF (paroxysmal atrial fibrillation) Abdominal aortic aneurysm without rupture Essential hypertension Abdominal aortic aneurysm Tobacco abuse Obstructive sleep apnea History of non-ST elevation myocardial infarction (NSTEMI) (09/24/18) Atherosclerotic heart disease of [place] coronary artery without angina pectoris NSTEMI (non-ST elevated myocardial infarction) History of supraventricular tachycardia Diabetes mellitus, type II Obesity (BMI 30-39.9) HLD (hyperlipidemia) HTN (hypertension) Chest pain Home Medications ???Medication ???Instructions ???Recorded ???Last Taken ???Type acetaminophen 325 mg tablet 650 mg (2 x 325 mg) PO Q6H PRN PRN 09/25/18 Unknown Rx Mild Pain (0-2/10) aspirin 81 mg tablet,delayed 81 mg PO DAILY@0800 see pcp 09/25/18 Unknown Rx release atorvastatin 80 mg tablet 80 mg PO DAILY see pcp (more content not included)... Normal [facility] H AND P Exam - Hospitaliston 04-14-2024 H&P Exam - Hospitalist [facility] Medical Records Department [address] [place] [address] H P Exam - Hospitalist 04/14/24 1429 MR#: [id number] Acct: [id number] Name: BRAVO FREEDMAN Rep #: [id number] : 1960 63 From: Aisha Vo MD PCP: Dr. Graham Priest MD Status:ADM IN Location: [facility] [id number] HPI - General General Date of Admission: 04/14/24 Date of Service: 04/14/24 Chief Complaint: Increasing SOB HPI Narrative BRAVO FREEDMAN, is a 63-year-old male history of AAA status post repair, CAD, diabetes, paroxysmal atrial fibrillation on Eliquis, hypertension, ORTIZ, COPD presented [facility] ED 04/14/2024 due to increasing shortness of breath. He has been using his home inhalers however he has been afraid to use them too much worried that it will trigger his A-fib. In the ED lab workup was fairly benign however patient desaturated to 85% on room air and does not wear home O2 so hospitalist contacted for admission. Patient evaluated at bedside and reports that gradually over the past several days he has had increasing shortness of breath and today it was so bad that he knew he had to come to the hospital. Does have some cough with nebulizers but no significant productive cough. Does have a bit of a headache and reports he has had high blood pressure over the past month or so and has had some swelling in his legs but this has been since he had a AAA repair around October. Does report compliance with his CPAP, and a little bit of chest tightness earlier that went away once his breathing improved with nebulizer. No fevers or chills, denies any other acute focal complaints [facility] Medical History AAA (abdominal aortic aneurysm) History of cardioversion Afib PAF (paroxysmal atrial fibrillation) Abdominal aortic aneurysm without rupture Essential hypertension Abdominal aortic aneurysm Tobacco abuse Obstructive sleep apnea History of non-ST elevation myocardial infarction (NSTEMI) (09/24/18) Atherosclerotic heart disease of [place] coronary artery without angina pectoris NSTEMI (non-ST elevated myocardial infarction) History of supraventricular tachycardia Diabetes mellitus, type II Obesity (BMI 30-39.9) HLD (hyperlipidemia) HTN (hypertension) Chest pain Home Medications ???Medication ???Instructions ???Recorded ???Last Taken ???Type acetaminophen 325 mg tablet 650 mg (2 x 325 mg) PO Q6H PRN PRN 09/25/18 Unknown Rx Mild Pain (0-2/10) aspirin 81 mg tablet,delayed 81 mg PO DAILY@0800 see pcp 09/25/18 04/14/24 Rx release atorvastatin 80 mg tablet 80 mg PO DAILY see pcp 05/16/19 04/14/24 History ascorbic acid (vitamin C) 500 mg 500 mg PO DAILY see pcp 11/13/19 04/14/24 History capsule,extended release pyridoxine (vitamin B6) 50 mg 50 mg PO DAILY see pcp 11/13/19 04/14/24 History capsule (Vitamin B-6) losartan 25 mg tablet 25 mg PO BID see pc #180 tabs 11/22/21 04/14/24 Rx albuterol sulfate 90 mcg/actuation 2 puff inhalation Q4H PRN PRN 02/23/22 04/14/24 Rx aerosol inhaler (Ventolin HFA) Wheezing #8.5 grams pantoprazole 40 mg tablet,delayed 40 mg PO DAILY see pcp 03/31/22 04/14/24 History release alfuzosin 10 mg tablet,extended 10 mg PO DAILY see pcp 02/13/23 04/14/24 History release 24 hr metoprolol tartrate 50 mg tablet 50 mg PO BID #60 tabs 02/15/23 04/14/24 Rx apixaban 5 mg tablet (Eliquis) 5 mg PO BID see pcp #180 tabs 10/15/23 04/14/24 Rx blood sugar diagnostic (Accu-Chek 11/28/23 Unknown History Guide test strips) lancets (Accu-Chek Softclix 11/28/23 Unknown History Lancets) cholecalciferol (vitamin D3) 125 125 mcg PO QDAY 12/07/23 04/14/24 History mcg (5,000 unit) capsule semaglutide 0.25 mg or 0.5 mg (2 0.25 mg subcut QWEEK 02/23/24 04/13/24 History mg/3 mL) subcutaneous pen injector (Ozempic) coenzyme Q10 200 mg capsule (Co 200 mg PO DAILY see pcp 03/07/24 04/13/24 History Q-10) magnesium 250 mg tablet 500 mg PO QDAY 03/07/24 04/14/24 History metformin 500 mg tablet,extended 1,000 mg PO DAILY see pcp 03/07/24 04/13/24 History release 24 hr doxycycline hyclate 100 mg capsule 100 mg PO BID 7 days #14 caps 04/14/24 Unknown Rx prednisone 50 mg tablet 50 mg PO DAILY 5 days #5 tabs 04/14/24 Unknown Rx Allergy/AdvReac Type Severity Reaction Status Date / Time rosuvastatin (From Crestor) AdvReac Severe Severe Verified 04/14/24 10:14 myalgias (legs) codeine AdvReac Other Verified 04/14/24 10:14 Family History Mother Heart disease Pacemaker Father Stomach cancer Liver cancer Surgical History History of thumb surgery History of appendectomy Stented coronary artery (09/24/18) Social History ... Normal [facility] L501.4020on 04-14-2024 TROPONIN-I HS 26 pg/mL Normal 3.0-78.0 [facility] Comment on above: Order Comment: 'TROP ' Serial specimen #1, #2 or #3: 1 Result Comment: Chen garduno Note: New Test Units and Gender Specific Reference Ranges. For more information see Policy Stat Procedure [place] High Sensitivity Troponin (TNIH) and attachments. Performed By: #### L 501.080 #### [facility] [address] [place], [address] Lactic Acidon 04-14-2024 Lactate [Moles/Vol] 1.4 mmol/L Normal 0.4-1.9 [facility] Comment on above: Order Comment: Y Performed By: #### L 501.080 #### [facility] [address] [place], [address] M100.678on 04-14-2024 M100.678 Pending SARS-CoV-2 (COVID 19) Negative INFLUENZA A Negative INFLUENZA B Negative RSV PCR Negative Normal [facility] Comment on above: Performed By: #### L 503.6620 #### [facility] [address] [place], [address] Partial Thromboplast Timeon 04-14-2024 aPTT Coag (Bld) [Time] 32.4 s Normal 24.1-36.2 [facility] Comment on above: Performed By: #### L 501.080 #### [facility] [address] [place], [address] Prothrombin Time w/INRon INR Coag (PPP) [Relative time] 1.2 {INR} Normal [facility] Comment on above: Performed By: #### L 501.080 #### [facility] [address] [place], [address] PT Coag (PPP) [Time] 15.4 s High 11.7-14.9 [facility] Comment on above: Performed By: #### L 501.080 #### [facility] [address] [place], [address] Urinalysis, Completeon 04-14 BACTERIA RARE Normal None Seen [facility] Comment on above: Order Comment: NISA CTOR TO SPECIFY Performed By: #### L 503.6620 #### [facility] [address] [place], [address] EPI,SQUAMOUS 0-5 SEEN Normal 0-5 [facility] Comment on above: Order Comment: COLLE CTOR TO SPECIFY Performed By: #### L 503.6620 #### [facility] [address] [place], [address] RBC 0-5 SEEN Normal 0-5 [facility] Comment on above: Order Comment: COLLE CTOR TO SPECIFY Performed By: #### L 503.6620 #### [facility] [address] [place], [address] WBC 0-5 SEEN Normal 0-5 [facility] Comment on above: Order Comment: COLLE CTOR TO SPECIFY Performed By: #### L 503.6620 #### [facility] [address] [place], [address] Mucus Ql (Urine sed) 0 SEEN Normal [facility] Comment on above: Order Comment: COLLE CTOR TO SPECIFY Performed By: #### L 503.6620 #### [facility] [address] [place], [address] BNP,B-Type NATRIURETIC PEPTI Maryanne 03-27-2024 Natriuretic peptide B (Bld) [Mass/Vol] 104.5 pg/mL High 0-100 [facility] Comment on above: Performed By: #### L 501.1000, L501.1105 #### [facility] [address] [place], [address] Basic Metabolic Profile (BMP )on 03-27-2024 BUN/CRE 21.5 RATIO High 10-20 [facility] Comment on above: Performed By: #### L 501.1000, L501.1105 #### [facility] [address] [place], [address] CA,Total 9.3 mg/dL Normal 8.5-10.1 [facility] Comment on above: Performed By: #### L 501.1000, L501.1105 #### [facility] [address] [place], [address] Chloride [Moles/Vol] 104 mmol/L Normal 98-107 [facility] Comment on above: Performed By: #### L 501.1000, L501.1105 #### [facility] [address] [place], [address] CO2 [Moles/Vol] 31.0 mmol/L Normal 21.0-32.0 [facility] Comment on above: Performed By: #### L 501.1000, L501.1105 #### [facility] [address] [place], [address] Creatinine [Mass/Vol] 1.35 mg/dL High 0.70-1.30 [facility] Comment on above: Result Comment: The validity of the calculated GFR GFRAA in patients over 70 years has not been determined. Clinical correlation is essential. Performed By: #### L 501.1000, L501.1105 #### [facility] [address] [place], [address] EST GFR - AA 69 mL/min Normal >60 [facility] Comment on above: Result Comment: Afri can Vietnamese GFR Calc Performed By: #### L 501.1000, L501.1105 #### [facility] [address] [place], [address] GAP 4 Low 5-15 [facility] Comment on above: Performed By: #### L 501.1000, L501.1105 #### [facility] [address] [place], [address] GFR/1.73 sq M.predicted among non-blacks MDRD (S/P/Bld) [Vol rate/Area] 57 mL/min/{1.73_m2} Low >60 [facility] Comment on above: Result Comment: Non- GFR Calc Performed By: #### L 501.1000, L501.1105 #### [facility] [address] [place], [address] Glucose [Mass/Vol] 100 mg/dL Normal 74-106 [facility] Comment on above: Result Comment: Fast ing Glucose result from 100 to 125 mg/dL suggests IMPAIRED HOMEOSTASIS per A.D.A. criteria. Performed By: #### L 501.1000, L501.1105 #### [facility] [address] [place], [address] Potassium [Moles/Vol] 4.5 mmol/L Normal 3.5-5.1 [facility] Comment on above: Performed By: #### L 501.1000, L501.1105 #### [facility] [address] [place], [address] Sodium [Moles/Vol] 139 mmol/L Normal 136-145 [facility] Comment on above: Performed By: #### L 501.1000, L501.1105 #### [facility] [address] [place], [address] Urea nitrogen [Mass/Vol] 29 mg/dL High 7-18 [facility] Comment on above: Performed By: #### L 501.1000, L501.1105 #### [facility] [address] [place], [address] CBC W/Diff, Automatedon 11-1 -2023 Absolute Lymph 1.85 X10 3/uL Normal 0.83-4.51 [facility] Comment on above: Performed By: #### L 501.1000, L501.1105 #### [facility] [address] [place], [address] Absolute Neut 3.3 X10 3/uL Normal 2.0-7.7 [facility] Comment on above: Performed By: #### L 501.1000, L501.1105 #### [facility] [address] [place], [address] Basophils/100 WBC (Bld) 1.1 % High 0-1 [facility] Comment on above: Performed By: #### L 501.1000, L501.1105 #### [facility] [address] [place], [address] Eosinophils/100 WBC (Bld) 3.9 % Normal 0-5 [facility] Comment on above: Performed By: #### L 501.1000, L501.1105 #### [facility] [address] [place], [address] Erythrocyte distribution width (RBC) [Ratio] 13.9 % Normal 11.6-14.6 [facility] Comment on above: Performed By: #### L 501.1000, L501.1105 #### [facility] [address] [place], [address] Hematocrit (Bld) [Volume fraction] 41.2 % Normal 40-54 [facility] Comment on above: Performed By: #### L 501.1000, L501.1105 #### [facility] [address] [place], [address] Hemoglobin (Bld) [Mass/Vol] 13.4 g/dL Normal 13.0-16.5 [facility] Comment on above: Performed By: #### L 501.1000, L501.1105 #### [facility] [address] [place], [address] IG% 1.100 High 0.0-0.9 [facility] Comment on above: Result Comment: IG% - Immature Granulocytes (promyelocytes, myelocytes and metamyelocytes) > 1% indicates that a LEFT SHIFT is Present. Performed By: #### L 501.1000, L501.1105 #### [facility] [address] [place], [address] Lymphocytes/100 WBC (Bld) 30.2 % Normal 19-41 [facility] Comment on above: Performed By: #### L 501.1000, L501.1105 #### [facility] [address] [place], [address] MCH (RBC) [Entitic mass] 30.6 pg Normal 27.0-32.0 [facility] Comment on above: Performed By: #### L 501.1000, L501.1105 #### [facility] [address] [place], [address] MCHC (RBC) [Mass/Vol] 32.5 g/dL Normal 32-36 [facility] Comment on above: Performed By: #### L 501.1000, L501.1105 #### [facility] [address] [place], [address] MCV (RBC) [Entitic vol] 94.1 fL High 80-94 [facility] Comment on above: Performed By: #### L 501.1000, L501.1105 #### [facility] [address] [place], [address] Monocytes/100 WBC (Bld) 10.4 % High 0-10 [facility] Comment on above: Performed By: #### L 501.1000, L501.1105 #### [facility] [address] [place], [address] Neutrophils/100 WBC (Bld) 53.3 % Normal 47-70 [facility] Comment on above: Performed By: #### L 501.1000, L501.1105 #### [facility] [address] [place], [address] Nucleated RBC (Bld) [#/Vol] 0 10*3/uL Normal 0-5 [facility] Comment on above: Performed By: #### L 501.1000, L501.1105 #### [facility] [address] [place], [address] Platelet mean volume (Bld) [Entitic vol] 9.3 fL Normal 6.2-12.0 [facility] Comment on above: Performed By: #### L 501.1000, L501.1105 #### [facility] [address] [place], [address] Platelets (Bld) [#/Vol] 200 10*3/uL Normal 150-450 [facility] Comment on above: Performed By: #### L 501.1000, L501.1105 #### [facility] [address] [place], [address] RBC (Bld) [#/Vol] 4.38 10*6/uL Low 4.6-6.2 [facility] Comment on above: Performed By: #### L 501.1000, L501.1105 #### [facility] [address] [place], [address] RDW SD 47.7 fl High 35.1-43.9 [facility] Comment on above: Performed By: #### L 501.1000, L501.1105 #### [facility] [address] [place], [address] WBC (Bld) [#/Vol] 6.1 10*3/uL Normal 4.4-11.0 [facility] Comment on above: Performed By: #### L 501.1000, L501.1105 #### [facility] [address] [place], [address] Cardiology Visit Reporton Cardiology Visit Report [facility] [address] [place], [place] [address] OFFICE VISIT Date of Service: 03/27/24 MR#: [id number] Acct: [id number] Name: BRAVO FREEDMAN Rep #: [id number] : 1960 Provider: CHIDI Carvajal rts Age/Sex: 63/M Location[place] [facility] [place] Status: Signed with Addenda ADDENDUM by CHIDI Vail on 03/27/24 at 1648 Cardiology Exam Const Appearance: cooperative, healthy appearing, comfortable and no acute distress Nutritional Appearance: well nourished and obese Orientation: alert, awake and oriented x3 Head Head: normal to inspection Ears: hearing grossly normal bilaterally Nose: external nose normal Face and Sinus: face symmetric Eyes General: appearance normal, both eyes and all related structures Eyelids: eyelids normal EOM: EOM intact bilaterally Neck Neck: normal visual inspection and no JVD Carotids: normal carotid upstroke Chest Chest inspection: normal inspection of the chest, symmetric chest movement and normal respiratory effort; Negative cough Auscultation: Bilateral: Clear to Auscultation Cardio Rate: regular rate Rhythm: regular rhythm Heart sounds: S1 normal and S2 normal; Negative rub, gallop or murmur GI GI: normal to inspection and obese Neuro General: patient alert, patient awake, patient oriented x3 and CN's II-XI intact bilaterally Skin Skin: no rashes or lesions noted Extremities Pulses: Normal: Right Posterior Tibial Pulse, Left Posterior Tibial Pulse, Right Radial Pulse and Left Radial Pulse Lower Extremity Edema: Trace: Bilateral Psych Psychological: normal affect Assessment and Plan Assessment and Plan (1) Atherosclerotic heart disease of [place] coronary artery without angina pectoris: Status: Chronic Qualifiers: [place] vs. transplanted heart: [place] heart Qualified Code(s): I25.10 - Atherosclerotic heart disease of [place] coronary artery without angina pectoris Comment: Successful PTCA/EAGLE mid LCX with a 3.0 x 20 Promus Synergy; Successful PCI with PTCA to the ostium of OM#2 with a 2.0 x 12 balloon; 50%-->30%, no dissection. 09/24/18 per DJNakul @ [facility] (2) PAF (paroxysmal atrial fibrillation): Status: Chronic Comment: DCCV on 09/24/2022 in ER, 02/14/2023; (3) HLD (hyperlipidemia): Status: Chronic Qualifiers: Hyperlipidemia type: unspecified Qualified Code(s): E78.5 - Hyperlipidemia, unspecified (4) HTN (hypertension): Status: Chronic Qualifiers: Hypertension type: essential hypertension Qualified Code(s): I10 - Essential (primary) hypertension (5) Abdominal aortic aneurysm: Status: Chronic Qualifiers: Abdominal aorta location: unspecified Presence of rupture: without rupture Qualified Code(s): I71.40 - Abdominal aortic aneurysm, without rupture, unspecified (6) History of supraventricular tachycardia: Status: Chronic (7) POON (dyspnea on exertion): Status: Acute Orders: Orders Basic Metabolic Profile (BMP) Today I48.0 - Paroxysmal atrial fibrillation BNP,B-Type NATRIURETIC PEPTIDE Today R06.09 - Other forms of dyspnea CBC W/Diff, Automated Today I48.0 - Paroxysmal atrial fibrillation Thyroid Stim Hormone (TSH) Today I48.0 - Paroxysmal atrial fibrillation Magnesium Today I48.0 - Paroxysmal atrial fibrillation Cardiac Holter Monitor, 24 Hrs Today I48.0 - Paroxysmal atrial fibrillation, Z86.79 - Personal history of other diseases of the circulatory system Medications: New furosemide (Lasix) 40 mg PO QAM 3 tabs 0RF Plan Details Follow Up: 2 Weeks (DICKR/STERLING) 03/27/24 9288 Date Yenni Vail NP [employer] cc: Dr. Graham Priest MD * Signed HPI HPI History of Present Illness Details: The patient is a 63 year old white male who presents to the office today for a cardiovascular follow up visit. He has a history of CAD, status post successful PCI of the mid circumflex artery following cardiac catheterization in September 2018. He also has a history of paroxysmal atrial fibrillation, hyperlipidemia, hypertension, diabetes, and obesity. He was a previous tobacco user. He had presented to the emergency room in September 2022 with chest discomfort he was noted to be in atrial fibrillation with a rapid ventricular response rate and he underwent DC cardioversion. He had been doing quite well but most recently he says that he has been under fair amount of stress due to family issues. He presented to the emergency room on November 28, 2023 with palpitations and a rapid narrow complex tachycardia with an EKG capturing it at a rate of 165 bpm. He was administered 6 mg and then 12 mg of adenosine with conversion to sinus rhythm. He presents for a follow-up visit. His last echocardiogram was from April 2022 demonstrating an ejection fraction of 65% with focal mitral valve calcification of the posterior leaflet. He did have a (more content not included)... Normal [facility] Magnesiumon 03-27-2024 Magnesium [Mass/Vol] 2.9 mg/dL High 1.6-2.6 [facility] Comment on above: Performed By: #### L 501.1000, L501.1105 #### [facility] [address] [place], [address] Thyroid Stim Hormone (TSH)on 03-27-2024 TSH 1.320 uIU/mL Normal 0.358-3.740 [facility] Comment on above: Performed By: #### L 501.1000, L501.1105 #### [facility] [address] [place], [address] Basic metabolic 2000 panelon 02-26-2024 Anion gap [Moles/Vol] 8 mmol/L Normal 5-16 [facility] Comment on above: Order Comment: Speci men Type: BLOOD SPECIMEN Ordering Facility: [facility] Address: [address] [place] [address] Performed By: #### L [id number], TSCR #### [facility] CLIA [id number] [address] [place] [address] [place] Calcium [Mass/Vol] 10.0 mg/dL Normal 8.5-10.5 [facility] Comment on above: Order Comment: Speci men Type: BLOOD SPECIMEN Ordering Facility: [facility] Address: [address] [place] [address] Performed By: #### L [id number], TSCR #### [facility] CLIA [id number] [address] [place] [address] [place] Chloride [Moles/Vol] 104 mmol/L Normal 98-107 [facility] Comment on above: Order Comment: Speci men Type: BLOOD SPECIMEN Ordering Facility: [facility] Address: [address] [place] [address] Performed By: #### L [id number], TSCR #### [facility] CLIA [id number] [address] [place] [address] [place] CO2 [Moles/Vol] 25 mmol/L Normal 21-32 [facility] Comment on above: Order Comment: Speci men Type: BLOOD SPECIMEN Ordering Facility: [facility] Address: [address] [place] [address] Performed By: #### L [id number], TSCR #### [facility] CLIA [id number] [address] [place] [address] [place] Creatinine [Mass/Vol] 1.14 mg/dL Normal 0.50-1.40 [facility] Comment on above: Order Comment: Speci men Type: BLOOD SPECIMEN Ordering Facility: [facility] Address: [address] [place] [address] Result Comment: Rosa ents receiving either N-Acetylcysteine (NAC) or Metamizole prior to venipuncture, may have falsely depressed results. Performed By: #### L [id number], TSCR #### [facility] CLIA [id number] [address] [place] [address] [place] Creatinine and Glomerular filtration rate.predicted panel (S/P/Bld) 72 mL/min/1.73m??? Normal >=60 [facility] Comment on above: Order Comment: Venus carrillo Type: BLOOD SPECIMEN Ordering Facility: [facility] Address: [address] [place] [address] Result Comment: Rachana mated Glomerular Filtration Rate (eGFR) is calculated using the 2020 CKD-EPI creatinine equation. This equation utilizes serum creatinine, sex, and age as parameters. The creatinine assay has traceable calibration to isotope dilution-mass spectrometry. Refer to KDIGO guidelines for clinical interpretation. In patients with unstable renal function, e.g. those with acute kidney injury, the eGFR may not accurately reflect actual GFR. Performed By: #### L [id number], TSCR #### [facility] CLIA [id number] [address] [place] [address] [place] Glucose [Mass/Vol] 130 mg/dL High 70-100 [facility] Comment on above: Order Comment: Venus carrillo Type: BLOOD SPECIMEN [facility] Address: [address] [place] [address] Result Comment: The [place] Diabetes Association (ADA) provides guidance for cutoff values for fasting glucose and random glucose. The ADA defines fasting as no caloric intake for at least 8 hours. Fasting plasma glucose results between 100 to 125 mg/dL indicate increased risk for diabetes (prediabetes). Fasting plasma glucose results greater than or equal to 126 mg/dL meet the criteria for diagnosis of diabetes. In the absence of unequivocal hyperglycemia, results should be confirmed by repeat testing. In a patient with classic symptoms of hyperglycemia or hyperglycemic crisis, random plasma glucose results greater than or equal to 200 mg/dL meet the criteria for diagnosis of diabetes. Reference: Standards of Medical Care in Diabetes 2016, [place] Diabetes Association. Diabetes Care. 2016.39(Suppl 1). Results may be falsely elevated after the administration of Sulfapyridine. Results may be falsely depressed after the administration of Sulfasalazine. Performed By: #### L [id number], TSCR #### [facility] CLIA [id number] [address] [place] [address] [place] Potassium [Moles/Vol] 4.4 mmol/L Normal 3.5-5.1 [facility] Comment on above: Order Comment: Speci men Type: BLOOD SPECIMEN [facility] Address: [address] [place] [address] Performed By: #### L [id number], TSCR #### [facility] CLIA [id number] [address] [place] [address] [place] Sodium [Moles/Vol] 137 mmol/L Normal 136-145 [facility] Comment on above: Order Comment: Speci men Type: BLOOD SPECIMEN [facility]ing [facility]: [facility] Address: [address] [place] [address] Performed By: #### L [id number], TSCR #### [facility] CLIA [id number] [address] [place] [address] [place] Urea nitrogen [Mass/Vol] 18 mg/dL Normal 7-26 [facility] Comment on above: Order Comment: Speci men Type: BLOOD SPECIMEN [facility] Address: [address] [place] [address] Performed By: #### L [id number], TSCR #### [facility] CLIA [id number] [address] [place] [address] [place] CBC panel Auto (Bld)on 02-25 Erythrocyte distribution width (RBC) [Ratio] 13.2 % Normal 11.5-15.0 [facility] Comment on above: Order Comment: Speci men Type: BLOOD SPECIMEN [facility] Address: [address] [place] [address] Performed By: #### L [id number], TSCR #### [facility] CLIA [id number] [address] [place] [address] [place] Hematocrit (Bld) [Volume fraction] 38.5 % Low 39.0-51.0 [facility] Comment on above: Order Comment: Speci men Type: BLOOD SPECIMEN [facility] Address: [address] [place] [address] Performed By: #### L [id number], TSCR #### [facility] CLIA [id number] [address] [place] [address] [place] Hemoglobin (Bld) [Mass/Vol] 12.9 g/dL Low 13.0-17.0 [facility] Comment on above: Order Comment: Speci men Type: BLOOD SPECIMEN [facility] Address: [address] [place] [address] Performed By: #### L [id number], TSCR #### [facility] CLIA [id number] [address] [place] [address] [place] MCH (RBC) [Entitic mass] 31.2 pg Normal 26.0-34.0 [facility] Comment on above: Order Comment: Speci men Type: BLOOD SPECIMEN [facility] Address: [address] [place] [address] Performed By: #### L [id number], TSCR #### [facility] CLIA [id number] [address] [place] [address] [place] MCHC (RBC) [Mass/Vol] 33.5 g/dL Normal 30.5-36.0 [facility] Comment on above: Order Comment: Speci men Type: BLOOD SPECIMEN Ordering [facility]: [facility] Address: [address] [place] [address] Performed By: #### L [id number], TSCR #### [facility] CLIA [id number] [address] [place] [address] [place] MCV (RBC) [Entitic vol] 93.2 fL Normal 80.0-100.0 [facility] Comment on above: Order Comment: Speci men Type: BLOOD SPECIMEN [facility]ing [facility] Address: [address] [place] [address] Performed By: #### L [id number], TSCR #### [facility] CLIA [id number] [address] [place] [address] [place] Nucleated RBC (Bld) [#/Vol] 10*3/uL Normal <0.01 [facility] Comment on above: Order Comment: Speci men Type: BLOOD SPECIMEN [facility]ing [facility]: [facility] Address: [address] [place] [address] Performed By: #### L [id number], TSCR #### [facility] CLIA [id number] [address] [place] [address] [place] Platelet mean volume (Bld) [Entitic vol] 9.3 fL Normal 9.0-12.7 [facility] Comment on above: Order Comment: Speci men Type: BLOOD SPECIMEN [facility]ing [facility] Address: [address] [place] [address] Performed By: #### L [id number], TSCR #### [facility] CLIA [id number] [address] [place] [address] [place] Platelets (Bld) [#/Vol] 252 10*3/uL Normal 150-400 [facility] Comment on above: Order Comment: Speci men Type: BLOOD SPECIMEN [facility]ing [facility] Address: [address] [place] [address] Performed By: #### L [id number], TSCR #### [facility] CLIA [id number] [address] [place] [address] [place] RBC (Bld) [#/Vol] 4.13 10*6/uL Low 4.20-6.00 [facility] Comment on above: Order Comment: Speci men Type: BLOOD SPECIMEN [facility]ing [facility] Address: [address] [place] [address] Performed By: #### L [id number], TSCR #### [facility] CLIA [id number] [address] [place] [address] [place] WBC (Bld) [#/Vol] 7.14 10*3/uL Normal 3.70-11.00 [facility] Comment on above: Order Comment: Venus carrillo Type: BLOOD SPECIMEN [facility] Address: [address] [place] [address] Performed By: #### L [id number], TSCR #### [facility] CLIA [id number] [address] [place] [address] CNDSon 02-26-2024 CNDS HNO ID: [id number] Author: DINA DOUGHERTY MD Service: Hospital Medicine Author Type: Physician Dry Goods Inspector Type: Discharge Summary Filed: 02/27/2024 15:14 Note Text: -- Attestation signed by Dina Dougherty MD at 02/27/2024 3:14 PM Agree -- DISCHARGE SUMMARY PATIENT NAME: Bravo Freedman ADMISSION DATE: 02/23/2024 DISCHARGE DATE: 02/26/2024 ATTENDING PHYSICIAN: Dina Dougherty MD Code Status: Full Code Highest Readmission Risk Score: 18 The 30 day readmissions risk score is derived from an internally validated risk model which evaluates patient level characteristics, utilization history, medication orders and lab results up until the day of discharge. Patients with a score of 40 or above are considered highest risk for readmission. Specific patient level drivers will be listed at the bottom of the summary. CONSULTING TEAMS DURING HOSPITALIZATION: Surgery : Vascular Treatment Team: Attending Provider: Dina Dougherty MD Consulting: Kyung Stiles MD Nurse Practitioner: Dimitrios Lanza APRN.CNP REASON FOR HOSPITALIZATION: R Renal artery occlusion DIAGNOSIS: Principal Problem: Intractable back pain (POA: Yes) Active Problems: Obesity, Class II, BMI 35-39.9 (POA: Unknown) Renal artery occlusion (HCC) (POA: Yes) Resolved Problems: * No resolved hospital problems. * Sepsis Ruled Out OPERATIONS DURING HOSPITALIZATION: Ultrasound-guided access retrograde left radial artery, Aortogram, Closure radial band 02/23 PROCEDURES DURING HOSPITALIZATION: No procedures performed HOSPITAL COURSE: Pt is a 63 yo male with PMHx of HTN, HLD, PVD, CAD, Afib, TIIDM, COPD, ORTIZ, and AAA s/p 02/18 repair. CTA showed a lack of flow to the R Renal artery, and he is s/p Ultrasound-guided access retrograde left radial artery, Aortogram, Closure radial band 02/23 with vascular surgery. Vascular surgery recommended discharge 02/25 with ASA 81mg daily in conjunction with eliquis 10mg BID x 6 days-> 5mg BID thereafter. The patient was agreeable to close vascular surgery follow up. His hospital course was complicated by a mild RICH which resolved prior to discharge. Patient is being discharged home in stable condition and agrees with plan. Understands importance of close follow up for re-evaluation and possible repeat vitals/labs/imaging. The problems as detailed below were addressed on admission. #Infrarenal abdominal aortic aneurysm s/p repair 02/18 #R Renal Artery Occlusion - s/p Ultrasound-guided access retrograde left radial artery, Aortogram, Closure radial band 02/[address] Stiles. - Discussed with Dr. Stiles on 02/25, and the patient was stable for discharge from the vascular standpoint on ASA 81mg daily in conjunction with eliquis 10mg BID x 6 days-> 5mg BID thereafter. Follow up with vascular surgery ordered. #RICH (resolved)- Cr 1.34-> 1.14, baseline 0.8-1. #EtOH Abuse without Withdrawal- 5-6 beers daily. No evidence of withdrawal. Counseled cessation. #CAD #Hypertensive Urgency (resolevd) #HLD #Afib #PVD - Continue home ASA, atorvastatin 80mg daily - BP as high as 222/107 on admission. Now better-controlled. Continue alfuzosin 10 mg po daily, losartan 25mg. - Eliquis resumed. Continue home lopressor 50mg BID. #TIIDM- Resume home meds. #COPD without exacerbation #ORTIZ on CPAP #GERD- Continue home protonix 40mg #BPH- Continue home alfuzosin 10 mg po daily #Obesity class III- continue to encourage weight loss. Review of Systems Constitutional: Negative for appetite change. Respiratory: Negative for shortness of breath. Cardiovascular: Negative for chest pain. Gastrointestinal: Negative for abdominal pain. Musculoskeletal: Negative for back pain. Subjective: states back pain has completely resolved. Understands and is agreeable to the discharge plan as noted above. Transitions of Care Critical Issues: SPECIALIST FOLLOW-UP: Vascular surgery LABS AND PROCEDURES PENDING AT DISCHARGE: No pending results. PATIENT CONDITION AT DISCHARGE: Stable DISCHARGE DISPOSITION: Home with Self Care PHYSICAL EXAM Physical Exam Constitutional: General: He is not in acute distress. Appearance: He is obese. He is not ill-appearing. Comments: Pleasant and cooperative adult male sitting up in chair, NAD. Cardiovascular: Rate and Rhythm: Normal rate and regular rhythm. Heart sounds: Normal heart sounds. Pulmonary: Effort: Pulmonary effort is normal. Breath sounds: Normal breath sounds. Abdominal: General: Bowel sounds are normal. There is no distension. Palpations: Abdomen is soft. Tenderness: There is no abdominal tenderness. Neurological: Mental Status: He is alert. Psychiatric: Mood and Affect: Mood normal. Behavior: Behavior normal. DIET: Resume pre-hospital diet ACTIVITY: Resume (more content not included)... Normal [facility] CBC panel Auto (Bld)on 02-24 Erythrocyte distribution width (RBC) [Ratio] 13.4 % Normal 11.5-15.0 [facility] Comment on above: Order Comment: Venus carrillo Type: BLOOD SPECIMEN [facility] Address: [address] [place] [address] Performed By: #### L [id number], TSCR #### [facility] [place] [id number] [address] [place], [place] [id number] [place] Hematocrit (Bld) [Volume fraction] 37.1 % Low 39.0-51.0 [facility] Comment on above: Order Comment: Venus carrillo Type: BLOOD SPECIMEN Ordering [facility] Address: [address] [place] [address] Performed By: #### L [id number], TSCR #### [facility] CLIA [id number] [address] [place] [address] OF [facility] Hemoglobin (Bld) [Mass/Vol] 12.1 g/dL Low 13.0-17.0 [facility] Comment on above: Order Comment: Speci men Type: BLOOD SPECIMEN [facility] Address: [address] [place] [address] Performed By: #### L [id number], TSCR #### [facility] CLIA [id number] [address] [place] [address] MCH (RBC) [Entitic mass] 31.1 pg Normal 26.0-34.0 [facility] Comment on above: Order Comment: Speci men Type: BLOOD SPECIMEN [facility] Address: [address] [place] [address] Performed By: #### L [id number], TSCR #### [facility] CLIA [id number] [address] [place] [address] OF [facility] MCHC (RBC) [Mass/Vol] 32.6 g/dL Normal 30.5-36.0 [facility] Comment on above: Order Comment: Speci men Type: BLOOD SPECIMEN [facility]ing [facility] Address: [address] [place] [address] Performed By: #### L [id number], TSCR #### [facility] CLIA [id number] [address] [place] [address] [place] OF [facility] MCV (RBC) [Entitic vol] 95.4 fL Normal 80.0-100.0 [facility] Comment on above: Order Comment: Speci men Type: BLOOD SPECIMEN [facility] Address: [address] [place] [address] Performed By: #### L [id number], TSCR #### [facility] CLIA [id number] [address] [place] [address] Nucleated RBC (Bld) [#/Vol] 10*3/uL Normal <0.01 [facility] Comment on above: Order Comment: Speci men Type: BLOOD SPECIMEN [facility] Address: [address] [place] [address] Performed By: #### L [id number], TSCR #### [facility] CLIA [id number] [address] [place] [address] [place] Platelet mean volume (Bld) [Entitic vol] 9.3 fL Normal 9.0-12.7 [facility] Comment on above: Order Comment: Speci men Type: BLOOD SPECIMEN [facility] Address: [address] [place] [address] Performed By: #### L [id number], TSCR #### [facility] CLIA [id number] [address] [place] [address] [place] Platelets (Bld) [#/Vol] 225 10*3/uL Normal 150-400 [facility] Comment on above: Order Comment: Speci men Type: BLOOD SPECIMEN [facility] Address: [address] [place] [address] Performed By: #### L [id number], TSCR #### [facility] CLIA [id number] [address] [place] [address] [place] RBC (Bld) [#/Vol] 3.89 10*6/uL Low 4.20-6.00 [facility] Comment on above: Order Comment: Speci men Type: BLOOD SPECIMEN [facility] Address: [address] [place] [address] Performed By: #### L [id number], TSCR #### [facility] CLIA [id number] [address] [place] [address] [place] WBC (Bld) [#/Vol] 7.50 10*3/uL Normal 3.70-11.00 [facility] Comment on above: Order Comment: Speci men Type: BLOOD SPECIMEN [facility] Address: [address] [place] [address] Performed By: #### L [id number], TSCR #### [facility] [id number] [address] [place] [address] [place] PT EDon 02-25-2024 PT ED HNO ID: [id number] Author: CHRISTINA ANDERSON RPh Service: Pharmacy Author Type: Pharmacist Type: Patient Education Filed: 02/25/2024 10:53 Note Text: PHARMACY ANTICOAGULATION EDUCATION Patient Name: Bravo Freedman Account #: Data Unavailable Admission Date: 02/23/2024 6:19 PM Date of Contact: February 25, 2024 Time of Contact: 10:52 AM Patient anticipated to be discharged on Apixaban as oral anticoagulation therapy. Anticoagulant history: Patient was previously taking this oral anticoagulant at home. Home medication/dose: apixiban 5mg BID Indication for oral anticoagulation: venous thromboembolism (VTE) prophylaxis Anticoagulant education status: Patient received full anticoagulation education Reason for taking anticoagulation How this anticoagulant works When to take medication and what to do if a dose is missed Drug interactions (Rx, OTC, herbal) and importance of notifying the doctor with any changes Do not take or discontinue any medication or over the counter medication except on the advice of the physician or pharmacist Signs/symptoms of bleeding and what to do if they occur Precautionary measures to decrease trauma/bleeding Signs/symptoms of thrombosis and what to do if they occur Need to limit or avoid alcohol consumption Carrying identification Importance of notifying healthcare provider when hospitalizations occur and when another healthcare provider has asked them to stop/hold anticoagulation medication before any procedure Importance of notifying all healthcare providers they are taking an anticoagulant Use of control measures, if applicable The importance of taking anticoagulation medication as instructed and the potential ramifications of non-compliance were explained to the patient The patient was provided supplemental material which includes the following topics: compliance Issues, follow-up with physician, follow-up monitoring, potential adverse drug reactions, and interactions. Christina Anderson RPh Normal [facility] aPTT PPPon 02-25-2024 aPTT Coag (PPP) [Time] 24.6 s Normal 23.0-32.4 [facility] Comment on above: Order Comment: Speci men Type: BLOOD SPECIMEN [facility] Address: [address] [place] [address] Performed By: #### L [id number], TSCR #### [facility] CLIA [id number] [address] [place] [id number] [place] Basic metabolic 2000 panelon 02-24-2024 Anion gap [Moles/Vol] 5 mmol/L Normal 5-16 [facility] Comment on above: Order Comment: Speci men Type: BLOOD SPECIMENOrdering Facility: [facility] Address: [address] [place] [id number] Performed By: #### 2 4321-2, ####[facility] [id number] [place] [id number] [place] Calcium [Mass/Vol] 9.4 mg/dL Normal 8.5-10.5 [facility] Comment on above: Order Comment: Speci men Type: BLOOD SPECIMENOrdering Facility: [facility] Address: [address] [place], [place] [address] Performed By: #### 2 4321-2, ####[facility]ORY[facility]IA [id number] [place] [address] [place] Chloride [Moles/Vol] 105 mmol/L Normal 98-107 [facility] Comment on above: Order Comment: Speci men Type: BLOOD SPECIMENOrdering Facility: [facility] Address: [address] [place] [address] Performed By: #### 2 4321-2, ####[facility]ORYCLIA [id number] [place] [address] [place] CO2 [Moles/Vol] 28 mmol/L Normal 21-32 [facility] Comment on above: Order Comment: Speci men Type: BLOOD SPECIMENOrdering Facility: [facility] Address: [address] [place] [address] Performed By: #### 2 4321-2, ####[facility]ORYCLIA [id number] [place] [address] [place] Creatinine [Mass/Vol] 1.34 mg/dL Normal 0.50-1.40 [facility] Comment on above: Order Comment: Venus carrillo Type: BLOOD SPECIMENOrdering Facility: [facility] Address: [address] [place] [id number] Result Comment: Rosa ents receiving either N-Acetylcysteine (NAC) or Metamizole prior to venipuncture, may have falsely depressed results. Performed By: #### 2 4321-2, ####[facility]ORYCLIA [id number] [address] [place] Creatinine and Glomerular filtration rate.predicted panel (S/P/Bld) 60 mL/min/1.73m??? Normal >=60 [facility] Comment on above: Order Comment: Venus carrillo Type: BLOOD SPECIMENOrdering Facility: [facility] Address: [address] [place] [address] Result Comment: Rachana mated Glomerular Filtration Rate (eGFR) is calculated using the 2020 CKD-EPI creatinine equation. This equation utilizes serum creatinine, sex, and age as parameters. The creatinine assay has traceable calibration to isotope dilution-mass spectrometry. Refer to KDIGO guidelines for clinical interpretation. In patients with unstable renal function, e.g. those with acute kidney injury, the eGFR may not accurately reflect actual GFR. Performed By: #### 2 4321-2, ####[facility]ORYCLIA [id number] [place] [id number] [place] Glucose [Mass/Vol] 162 mg/dL High 70-100 [facility] Comment on above: Order Comment: Divyai men Type: BLOOD SPECIMENOrdering Facility: [facility] Address: [address] [place] [address] Result Comment: The [place] Diabetes [employer] (ADA) provides guidance for cutoff values for fasting glucose and random glucose. The ADA defines fasting as no caloric intake for at least 8 hours. Fasting plasma glucose results between 100 to 125 mg/dL indicate increased risk for diabetes (prediabetes). Fasting plasma glucose results greater than or equal to 126 mg/dL meet the criteria for diagnosis of diabetes. In the absence of unequivocal hyperglycemia, results should be confirmed by repeat testing. In a patient with classic symptoms of hyperglycemia or hyperglycemic crisis, random plasma glucose results greater than or equal to 200 mg/dL meet the criteria for diagnosis of diabetes. Reference: Standards of Medical Care in Diabetes 2016, [place] [employer]. Diabetes Care. 2016.39(Suppl 1). Results may be falsely elevated after the administration of Sulfapyridine. Results may be falsely depressed after the administration of Sulfasalazine. Performed By: #### 2 4320-06, ####[facility]ATORYCLIA [id number] [place] [address] [place] Potassium [Moles/Vol] 4.1 mmol/L Normal 3.5-5.1 [facility] Comment on above: Order Comment: Venus carrillo Type: BLOOD SPECIMENOrdering Facility: [facility] Address: [address] [place] [address] Performed By: #### 2 4320-06, ####[facility]ORYCLIA [id number] [address] [place] Sodium [Moles/Vol] 138 mmol/L Normal 136-145 [facility] Comment on above: Order Comment: Venus carrillo Type: BLOOD SPECIMENOrdering Facility: [facility] Address: [address] [place], [place] [address] Performed By: #### 2 4320-06, ####[facility]ATORYCLIA [id number] [place] [address] [place] Urea nitrogen [Mass/Vol] 21 mg/dL Normal 7-26 [facility] Comment on above: Order Comment: Venus carrillo Type: BLOOD SPECIMENOrdering Facility: [facility] Address: [address] [place] [address] Performed By: #### 2 4320-06, ####[facility]ATORYCLIA [id number] [place] [id number] [place] CBC panel Auto (Bld)on 02-23 Erythrocyte distribution width (RBC) [Ratio] 13.6 % Normal 11.5-15.0 [facility] Comment on above: Order Comment: Speci men Type: BLOOD SPECIMENOrdering Facility: [facility] Address: [address] [place] [address] Performed By: #### 5 8410-2 ####[facility] LABORATORYCLIA [id number] [address] [place] Hematocrit (Bld) [Volume fraction] 36.8 % Low 39.0-51.0 [facility] Comment on above: Order Comment: Speci men Type: BLOOD SPECIMENOrdering Facility: [facility] Address: [address] [place] [address] Performed By: #### 5 8410-2 ####[facility] LABORATORYCLIA [id number] [place] [address] [place] Hemoglobin (Bld) [Mass/Vol] 12.2 g/dL Low 13.0-17.0 [facility] Comment on above: Order Comment: Speci men Type: BLOOD SPECIMENOrdering Facility: [facility] Address: [address] [place] [address] Performed By: #### 5 8410-2 ####[facility] LABORATORYCLIA [id number] [place] [address] [place] MCH (RBC) [Entitic mass] 31.9 pg Normal 26.0-34.0 [facility] Comment on above: Order Comment: Speci men Type: BLOOD SPECIMENOrdering Facility: [facility] Address: [address] [place] [address] Performed By: #### 5 8410-2 ####[facility] LABORATORYCLIA [id number] [place] [address] [place] MCHC (RBC) [Mass/Vol] 33.2 g/dL Normal 30.5-36.0 [facility] Comment on above: Order Comment: Speci men Type: BLOOD SPECIMENOrdering Facility: [facility] Address: [address] [place] [address] Performed By: #### 5 8410-2 ####[facility] LABORATORYCLIA [id number] [place] [id number] [place] MCV (RBC) [Entitic vol] 96.1 fL Normal 80.0-100.0 [facility] Comment on above: Order Comment: Speci men Type: BLOOD SPECIMENOrdering Facility: [facility] Address: [address] [place] [address] Performed By: #### 5 8410-2 ####[facility] LABORATORYCLIA [id number] [place] [address] [place] Nucleated RBC (Bld) [#/Vol] 10*3/uL Normal <0.01 [facility] Comment on above: Order Comment: Speci men Type: BLOOD SPECIMENOrdering Facility: [facility] Address: [address] [place] [address] Performed By: #### 5 8410-2 ####[facility] LABORATORYCLIA [id number] [place] [address] [place] Platelet mean volume (Bld) [Entitic vol] 9.1 fL Normal 9.0-12.7 [facility] Comment on above: Order Comment: Speci men Type: BLOOD SPECIMENOrdering Facility: [facility] Address: [address] [place] [address] Performed By: #### 5 8410-2 ####[facility] LABORATORYCLIA [id number] [place] [address] [place] Platelets (Bld) [#/Vol] 203 10*3/uL Normal 150-400 [facility] Comment on above: Order Comment: Speci men Type: BLOOD SPECIMENOrdering Facility: [facility] Address: [address] [place] [address] Performed By: #### 5 8410-2 ####[facility] LABORATORYCLIA [id number] [place] [id number] [place] RBC (Bld) [#/Vol] 3.83 10*6/uL Low 4.20-6.00 [facility] Comment on above: Order Comment: Speci men Type: BLOOD SPECIMENOrdering Facility: [facility] Address: [address] [place] [address] Performed By: #### 5 8410-2 ####[facility] LABORATORYCLIA [id number] [place] [id number] [facility] WBC (Bld) [#/Vol] 7.09 10*3/uL Normal 3.70-11.00 [facility] Comment on above: Order Comment: Speci men Type: BLOOD SPECIMENOrdering Facility: [facility] Address: [address] [place] [address] Performed By: #### 5 8410-2 ####[facility] LABORATORYCLIA [id number] [address] [place] Erythrocyte distribution width (RBC) [Ratio] 13.6 % Normal 11.5-15.0 [facility] Comment on above: Order Comment: Speci men Type: BLOOD SPECIMENOrdering Facility: [facility] Address: [address] [place] [address] Performed By: #### 5 8410-2 ####[facility] LABORATORYCLIA [id number] [address] [place] Hematocrit (Bld) [Volume fraction] 35.5 % Low 39.0-51.0 [facility] Comment on above: Order Comment: Speci men Type: BLOOD SPECIMENOrdering Facility: [facility] Address: [address] [place] [address] Performed By: #### 5 8410-2 ####[facility] LABORATORYCLIA [id number] [place] [address] [place] Hemoglobin (Bld) [Mass/Vol] 11.6 g/dL Low 13.0-17.0 [facility] Comment on above: Order Comment: Speci men Type: BLOOD SPECIMENOrdering Facility: [facility] Address: [address] [place] [address] Performed By: #### 5 8410-2 ####[facility] LABORATORYCLIA [id number] [facility] [address] MCH (RBC) [Entitic mass] 31.6 pg Normal 26.0-34.0 [facility] Comment on above: Order Comment: Speci men Type: BLOOD SPECIMENOrdering Facility: [facility] Address: [address] [place] [address] Performed By: #### 5 8410-2 ####[facility] LABORATORYCLIA [id number] [address] [place] MCHC (RBC) [Mass/Vol] 32.7 g/dL Normal 30.5-36.0 [facility] Comment on above: Order Comment: Speci men Type: BLOOD SPECIMENOrdering Facility: [facility] Address: [address] [place] [address] Performed By: #### 5 8410-2 ####[facility] LABORATORYCLIA [id number] [address] [place] MCV (RBC) [Entitic vol] 96.7 fL Normal 80.0-100.0 [facility] Comment on above: Order Comment: Speci men Type: BLOOD SPECIMENOrdering Facility: [facility] Address: [address] [place] [address] Performed By: #### 5 8410-2 ####[facility]ORATORYCLIA [id number] [address] [place] Nucleated RBC (Bld) [#/Vol] 10*3/uL Normal <0.01 [facility] Comment on above: Order Comment: Speci men Type: BLOOD SPECIMENOrdering Facility: [facility] Address: [address] [place] [address] Performed By: #### 5 8410-2 ####[facility] LABORATORYCLIA [id number] [address] [place] Platelet mean volume (Bld) [Entitic vol] 9.3 fL Normal 9.0-12.7 [facility] Comment on above: Order Comment: Speci men Type: BLOOD SPECIMENOrdering Facility: [facility] Address: [address] [place] [address] Performed By: #### 5 8410-2 ####[facility] LABORATORYCLIA [id number] [place] [id number] [facility] [place] Platelets (Bld) [#/Vol] 197 10*3/uL Normal 150-400 [facility] Comment on above: Order Comment: Speci men Type: BLOOD SPECIMENOrdering Facility: [facility] Address: [address] [place] [address] Performed By: #### 5 8410-2 ####[facility] LABORATORYCLIA [id number] [place] [id number] [place] RBC (Bld) [#/Vol] 3.67 10*6/uL Low 4.20-6.00 [facility] Comment on above: Order Comment: Speci men Type: BLOOD SPECIMENOrdering Facility: [facility] Address: [address] [place] [address] Performed By: #### 5 8410-2 ####[facility] LABORATORYCLIA [id number] [place] [id number] [place] WBC (Bld) [#/Vol] 7.20 10*3/uL Normal 3.70-11.00 [facility] Comment on above: Order Comment: Speci men Type: BLOOD SPECIMENOrdering Facility: [facility] Address: [address] [place] [address] Performed By: #### 5 8410-2 ####[facility] LABORATORYCLIA [id number] [place] [id number] [facility] CONSULTon 02-24-2024 CONSULT HNO ID: [id number] Author: KYUNG STILES MD Service: Vascular Surgery Author Type: Physician Type: Consults Filed: 02/24/2024 15:17 Note Text: VASCULAR SURGERY CONSULT SERVICE DATE: 02/24/2024 SERVICE TIME: 3:09 PM Subjective CHIEF COMPLAINT: 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 He had a endovascular aneurysm repair this Sunday. Completion pictures looked in HPI: Bravo Freedman is a 63 year old White male is being seen improved well sealed aneurysm. Good flow in the bilateral renal arteries. The stent was right up at that area of the renal artery. But good flow. He was discharged home on Sunday and then had acute back pain to Sunday. 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 Transferred to [facility] and discussed we try and attempt see if we could open up that renal artery. PAST MEDICAL HISTORY: PAST MEDICAL HISTORY Diagnosis Date Atrial fibrillation ([facility]) DR ELISE COPD (chronic obstructive pulmonary disease) ([facility]) PCP Coronary artery disease Diabetes ([facility]) PCP gerd MED CONTROLLED Heart attack ([facility]) DR ELISE -HE HAD LA 2018 High cholesterol MED CONTROLLED Hypertension MED CONTROLLED Infrarenal abdominal aortic aneurysm (AAA) without rupture ([facility]) Peripheral vascular disease ([facility]) DR STILES Sleep apnea CPAP 02 - 2 L/MIN AT SLEEP STUDY [place] PAST SURGICAL HISTORY: PAST SURGICAL HISTORY Procedure Laterality Date APPENDECTOMY PAST SURGICAL HISTORY OF both thumbs for infection a year apart PAST SURGICAL HISTORY OF STENTS X 1 - CAD ANGIOPLASTY = 2019 FAMILY HISTORY: FAMILY HISTORY Problem Relation Age of Onset Cancer Father liver- nahomy lizzette SOCIAL HISTORY: Social History Tobacco Use Smoking status: Every Day Current packs/day: 0.50 Average packs/day: 0.5 packs/day for 30.0 years (15.0 ttl pk-yrs) Types: Cigarettes Passive exposure: Current Smokeless tobacco: Never Tobacco comments: STARTED SMOKING TEENS ,QUIT SMOKING 2019 - 1.5 PACK A DAY Substance Use Topics Alcohol use: Yes Comment: few beers daily-4 Drug use: Yes Frequency: 7.0 times per week Comment: marijuana.-SMOKES MEDICATIONS: Prior to Admission Medications: HYDROcodone-acetaminophen (NORCO) 5-325 mg per tabletTake 1 tablet by mouth every 8 hours as needed for up to 7 days.Disp: 20 tabletRfl: 0 alfuzosin SR (UROXATRAL) 10 mg 24 hr tabletTake 10 mg by mouth once daily.Disp: Rfl: atorvastatin (LIPITOR) 80 mg tabletTake 80 mg by mouth once daily.Disp: Rfl: losartan (COZAAR) 25 mg tabletTake 25 mg by mouth two times a day.Disp: Rfl: metFORMIN (GLUCOPHAGE) 500 mg tabletTake 1,000 mg by mouth daily with dinner.Disp: Rfl: metoprolol tartrate, short acting, (LOPRESSOR) 50 mg tabletTake 50 mg by mouth two times a day.Disp: Rfl: pantoprazole DR (PROTONIX) 40 mg tabletTake 40 mg by mouth once daily.Disp: Rfl: omega-3s/dha/epa/fish oil/D3 (VITAMIN-D + OMEGA-3 ORAL)Take 125 mg by mouth once daily. 02/18/24Disp: Rfl: semaglutide (OZEMPIC) 0.25 mg or 0.5 mg(2 mg/1.5 mL) penInject 0.25 mg subcutaneously one time a week. ON Sunday02/10/24Disp: Rfl: Coenzyme Q10 (CO Q-10) 200 mg capTake 200 mg by mouth once daily.Disp: Rfl: ascorbic acid, vitamin C, (VITAMIN C) 500 mg tabletTake 1,000 mg by mouth once daily.Disp: Rfl: Magnesium 250 mg tabTake 500 mg by mouth once daily.Disp: Rfl: pyridoxine, vitamin B6, (VITAMIN B-6) 100 mg tabletTake 100 mg by mouth once daily.Disp: Rfl: ALBUTEROL INHALATIONInhale 2 Puffs as instructed every 4 hours as needed.Disp: Rfl: OXYGEN, HOME THERAPY,Inhale 2 L/min as instructed daily at bedtime. WITH CPAPDisp: Rfl: aspirin 325 mg tabletTake 81 mg by mouth once daily. He may continue asa per dr Faustinp: Rfl: Current Facility-Administered Medications Medication Dose Route Frequency [Transfer Hold] aspirin, enteric coated 81 mg tab(s) 81 mg ORAL DAILY [Transfer Hold] atorvastatin 80 mg tab(s) (LIPITOR) 80 mg ORAL DAILY [Transfer Hold] Coenzyme Q10 cap 200 mg 200 mg ORAL DAILY [Transfer Hold] losartan 25 mg tab(s) (COZAAR) 25 mg ORAL BID [Transfer Hold] metoprolol tartrate (short acting) 50 mg tab(s) (LOPRESSOR) 50 mg ORAL BID [Transfer Hold] pantoprazole DR 40 mg tab(s) (PROTONIX) 40 mg ORAL DAILY [Transfer Hold] pyridoxine (vitamin B6) 100 mg tab(s) (VITAMIN B6) 100 mg ORAL DAILY [Transfer Hold] NaCl 0.9% iv flush bag 20 mL INTRAVENOUS PRN [Transfer Hold] ondansetron 4 mg tab(s) (ZOFRAN) 4 mg ORAL q 6 H PRN Or [Transfer Hold] ondansetron (PF) 4 mg injection (ZOFRAN) 4 mg INTRAVENOUS q 6 H PRN [Transfer Hold] polyethylene glycol 3350 17 g packet 17 g ORAL DAILY PRN [Transfer Hold] acetaminophen 1,000 mg tab(s) (TYLENOL) 1,000 mg ORAL q 6 H [Transfer Hold] gabapentin 300 mg cap(s) (NEURONTIN) 300 mg ORAL DAILY [Transfer Hold] oxyCODONE IR 5 mg tab(s) (ROXICODONE) 5 mg ORAL q 6 H SD (more content not included)... Normal [facility] HISTORY PHYSICALon HISTORY PHYSICAL HNO ID: [id number] Author: KYUNG STILES MD Service: Vascular Surgery Author Type: Physician Type: H&P Filed: 02/24/2024 14:33 Note Text: See HANDP, no change Plan right renal angiogram +- thrombectomy Kyung Stiles MD [facility] Magnesium SerPl-mCncon 02-23 Magnesium [Mass/Vol] 1.9 mg/dL Normal 1.6-2.6 [facility] Comment on above: Order Comment: Speci men Type: BLOOD SPECIMENOrdering Facility: [facility] Address: [address] [place] [address] Performed By: #### 2 4321-2, 43614-4 ####[facility] LABORATORYCLIA [id number] [place] [address] [place] NURSING PROGon 02-24-2024 NURSING PROG HNO ID: [id number] Author: ZAN DUBOIS, NGUYEN Service: Nursing Author Type: Registered Nurse Type: Nursing Progress Note Filed: 02/24/2024 23:19 Note Text: Nursing Progress Note Vital Breakfast Bar Attendant Assessment Note Patient Name: Bravo Freedman Patient Location: / Patient Vitals for the past 4 hrs: BP Temp Temp src Pulse Resp SpO2 02/24/24 2235 ? ? ? 76 18 94 % 02/24/245 136/66 37.6 ?C (99.6 ?F) Oral 70 17 95 % 02/24/241958 ? ? ? 62 18 ? 02/24/241941 179/78 37.2 ?C (99 ?F) Oral 62 18 92 % Status Change Related to: Issues (See Nursing Clinical Assessment For Details) The Following People Were Notified: Caregiver/Provider: See Documentation Related to: Oxygen Therapy Additional Comments : Patient is currently on home cpap. Patient is stable. This note was completed by: Zan Dubois RN [facility] NURSING PROG HNO ID: [id number] Author: BEKAH ZIEGLER RN Service: Nursing Author Type: Registered Nurse Type: Nursing Progress Note Filed: 02/24/2024 01:16 Note Text: Nursing Progress Note Vital Breakfast Bar Attendant Assessment Note Patient Name: Bravo Freedman Patient Location: [id number]/[id number] Patient Vitals for the past 4 hrs: BP Temp Temp src Pulse Resp SpO2 02/23/24 2310 112/73 37.1 ?C (98.8 ?F) Oral 63 20 94 % Status Change Related to: Issues (See Nursing Clinical Assessment For Details) The Following People Were Notified: Caregiver/Provider: See Documentation Related to: Additional Comments : Pt is on home CPAP. Assessment remains stable. This note was completed by: Bekah Ziegler RN [facility] OPERATIVE NOon 02-24-2024 OPERATIVE NO HNO ID: [id number] Author: KYUNG STILES MD Service: Vascular Surgery Author Type: Physician Type: Operative Report Filed: 02/24/2024 16:35 Note Text: OPERATIVE/PROCEDURE REPORT LOG ID: [id number] SURGERY/PROCEDURE DATE: 02/24/2024 INCISION/PROCEDURE START TIME: INCISION CLOSE/PROCEDURE END TIME: SURGEON(S)/PROCEDURALIST(S ) AND DRAWER UPFITTER(S): Surgeons and Role: * Kyung Stiles MD - Primary No Additional Staff SURGERY/PROCEDURE(S): 1. Ultrasound-guided access retrograde left radial artery. 2. Aortogram. 3. Closure radial band ANESTHESIA: Procedural Sedation SURGERY/PROCEDURE DETAILS: Patient brought to operating room. Underwent appropriate timeout consent. Underwent sedation. Prepped and draped in a sterile fashion. We did ultrasound-guided access retrograde in the left radial artery. Put a Glidewire and then as 6 [place] sheath. Give 5000 units of heparin. We got down the descending thoracic aorta. We did an aortogram showing the area of the renal artery occlusion. We then brought in the [place] catheter in did angiogram at the origin of the renal artery. Unable to cross into renal artery. Did radial band with good hemostasis and brought to recovery in stable condition. Sedation: This 63-year-old gentleman underwent moderate sedation given by Dr. Kyung Stiles. He was monitored by the IV sedation nurse. He is given fentanyl, Versed, heparin and nitroglycerin. He was monitored EKG blood pressure and pulse ox for over the 45 minutes of the procedure. See the EMR for the complete record. Fluoroscopy: Fluoroscopy: Fluoroscopy 11.4 minutes Dose: 1625 mGy Contrast dye: 10 cc PRE-OP/PRE-PROCEDURE DIAGNOSIS: Occluded right renal artery POST-OP/POST-PROCEDURE DIAGNOSIS: Same ESTIMATED BLOOD LOSS: Minimal SPECIMENS: None IMPLANTABLE DEVICES: none DRAINS: None COMPLICATIONS: none SIGNATURE: Kyung Stiles MD PATIENT NAME: Bravo Freedman DATE: February 24, 2024 TIME: 3:28 PM Normal [facility] PT panel Coag (PPP)on 2023 INR Coag (PPP) [Relative time] 1.0 {INR} Normal 0.9-1.3 [facility] Comment on above: Order Comment: Speci men Type: BLOOD SPECIMENOrdering Facility: [facility] Address: [address] [place] [address] Result Comment: Yoana min K Antagonist (VKA) Therapeutic Range: INR 2 to 3 (Target INR of 2.5) Note: For patients treated with VKA drugs, such as warfarin, the [place] [employer] 2012 Guideline recommends a therapeutic INR range of 2 to 3 (target INR of 2.5). This recommendation includes high-risk patients with antiphospholipid syndrome with previous arterial or venous thromboembolism, current-generation mechanical or bioprosthetic aortic heart valve replacement. Note: Patients with mechanical aortic valve replacement and additional risk factors for thromboembolic events (atrial fibrillation, previous thromboembolism, LV dysfunction, hypercoagulable conditions) or an older generation mechanical AVR (i.e., ball in-Cage) or any mechanical MVR should have a INR therapeutic range of 2.5 to 3.5 (target INR of 3). Мария GH, et al. Chest 2012, 141:7S-47S Christophe RA, et al. [facility] 2017, 70: 252-289 Performed By: #### 3 4528-0, 39366-8 ####[facility] LABORATORYCLIA [id number] [place] [address] [place] PT Coag (PPP) [Time] 11.3 s Normal 9.7-13.0 [facility] Comment on above: Order Comment: Venus carrillo Type: BLOOD SPECIMENOrdering Facility: [facility] Address: [address] [place] [id number] Performed By: #### 3 4528-0, 14901-3 ####[facility] LABORATORYCLIA [id number] [address] [place] aPTT PPPon 02-24-2024 aPTT Coag (PPP) [Time] 33.4 s High 23.0-32.4 [facility] Comment on above: Order Comment: Venus carrillo Type: BLOOD SPECIMENOrdering Facility: [facility] Address: [address] [place] [address] Performed By: #### 3 4528-0, 35063-1 ####[facility] LABORATORYCLIA [id number] [place] [id number] [place] Basic metabolic 2000 panelon 02-23-2024 Anion gap [Moles/Vol] 5 mmol/L Normal 5-16 [facility] Comment on above: Order Comment: Speci men Type: BLOOD SPECIMENOrdering Facility: [facility] Address: [address] [place] [address] Performed By: #### 2 4321-2 ####[facility] LABORATORYCLIA [id number] [place] [id number] [place] Calcium [Mass/Vol] 9.9 mg/dL Normal 8.5-10.5 [facility] Comment on above: Order Comment: Speci men Type: BLOOD SPECIMENOrdering Facility: [facility] Address: [address] [place] [address] Performed By: #### 2 4321-2 ####[facility] LABORATORYCLIA [id number] [place] [id number] [place] Chloride [Moles/Vol] 104 mmol/L Normal 98-107 [facility] Comment on above: Order Comment: Speci men Type: BLOOD SPECIMENOrdering Facility: [facility] Address: [address] [place] [address] Performed By: #### 2 4321-2 ####[facility] LABORATORYCLIA [id number] [place] [address] [place] CO2 [Moles/Vol] 28 mmol/L Normal 21-32 [facility] Comment on above: Order Comment: Speci men Type: BLOOD SPECIMENOrdering Facility: [facility] Address: [address] [place] [address] Performed By: #### 2 4321-2 ####[facility] LABORATORYCLIA [id number] [place] [address] [place] Creatinine [Mass/Vol] 1.19 mg/dL Normal 0.50-1.40 [facility] Comment on above: Order Comment: Speci men Type: BLOOD SPECIMENOrdering Facility: [facility] Address: [address] [place] [address] Result Comment: Rosa ents receiving either N-Acetylcysteine (NAC) or Metamizole prior to venipuncture, may have falsely depressed results. Performed By: #### 2 4321-2 ####[facility] LABORATORYCLIA [id number] [place] [address] [place] Creatinine and Glomerular filtration rate.predicted panel (S/P/Bld) 69 mL/min/1.73m??? Normal >=60 [facility] Comment on above: Order Comment: Venus carrillo Type: BLOOD SPECIMENOrdering Facility: [facility] Address: [address] [place] [address] Result Comment: Rachana mated Glomerular Filtration Rate (eGFR) is calculated using the 2020 CKD-EPI creatinine equation. This equation utilizes serum creatinine, sex, and age as parameters. The creatinine assay has traceable calibration to isotope dilution-mass spectrometry. Refer to KDIGO guidelines for clinical interpretation. In patients with unstable renal function, e.g. those with acute kidney injury, the eGFR may not accurately reflect actual GFR. Performed By: #### 2 4321-2 ####[facility]ORATORYCLIA [id number] [place] [address] [place] Glucose [Mass/Vol] 155 mg/dL High 70-100 [facility] Comment on above: Order Comment: Venus carrillo Type: BLOOD SPECIMENOrdering Facility: [facility] Address: [address] [place] [address] Result Comment: The [place] [employer] (ADA) provides guidance for cutoff values for fasting glucose and random glucose. The ADA defines fasting as no caloric intake for at least 8 hours. Fasting plasma glucose results between 100 to 125 mg/dL indicate increased risk for diabetes (prediabetes). Fasting plasma glucose results greater than or equal to 126 mg/dL meet the criteria for diagnosis of diabetes. In the absence of unequivocal hyperglycemia, results should be confirmed by repeat testing. In a patient with classic symptoms of hyperglycemia or hyperglycemic crisis, random plasma glucose results greater than or equal to 200 mg/dL meet the criteria for diagnosis of diabetes. Reference: Standards of Medical Care in Diabetes 2016, [place] [employer]. Diabetes Care. 2016.39(Suppl 1). Results may be falsely elevated after the administration of Sulfapyridine. Results may be falsely depressed after the administration of Sulfasalazine. Performed By: #### 2 4321-2 ####[facility] LABORATORYCLIA [id number] [place] [address] [place] Potassium [Moles/Vol] 3.9 mmol/L Normal 3.5-5.1 [facility] Comment on above: Order Comment: Speci men Type: BLOOD SPECIMENOrdering Facility: [facility] Address: [address] [place] [address] Performed By: #### 2 4321-2 ####[facility] LABORATORYCLIA [id number] [place] [id number] [place] Sodium [Moles/Vol] 137 mmol/L Normal 136-145 [facility] Comment on above: Order Comment: Speci men Type: BLOOD SPECIMENOrdering Facility: [facility] Address: [address] [place] [address] Performed By: #### 2 4321-2 ####[facility] LABORATORYCLIA [id number] [address] [place] Urea nitrogen [Mass/Vol] 16 mg/dL Normal 7-26 [facility] Comment on above: Order Comment: Speci men Type: BLOOD SPECIMENOrdering Facility: [facility] Address: [address] [place] [address] Performed By: #### 2 4321-2 ####[facility] LABORATORYCLIA [id number] [place] [address] [place] CBC panel Auto (Bld)on 02-22 Erythrocyte distribution width (RBC) [Ratio] 13.3 % Normal 11.5-15.0 [facility] Comment on above: Order Comment: Speci men Type: BLOOD SPECIMENOrdering Facility: [facility] Address: [address] [place] [address] Performed By: #### 5 8410-2 ####[facility] LABORATORYCLIA [id number] [address] [place] Hematocrit (Bld) [Volume fraction] 37.1 % Low 39.0-51.0 [facility] Comment on above: Order Comment: Speci men Type: BLOOD SPECIMENOrdering Facility: [facility] Address: [address] [place] [address] Performed By: #### 5 8410-2 ####[facility] LABORATORYCLIA [id number] [address] [place] Hemoglobin (Bld) [Mass/Vol] 12.3 g/dL Low 13.0-17.0 [facility] Comment on above: Order Comment: Speci men Type: BLOOD SPECIMENOrdering Facility: [facility] Address: [address] [place] [address] Performed By: #### 5 8410-2 ####[facility] LABORATORYCLIA [id number] [address] [place] MCH (RBC) [Entitic mass] 31.3 pg Normal 26.0-34.0 [facility] Comment on above: Order Comment: Speci men Type: BLOOD SPECIMENOrdering Facility: [facility] Address: [address] [place] [address] Performed By: #### 5 8410-2 ####[facility] LABORATORYCLIA [id number] [address] OF [facility] MCHC (RBC) [Mass/Vol] 33.2 g/dL Normal 30.5-36.0 [facility] Comment on above: Order Comment: Speci men Type: BLOOD SPECIMENOrdering Facility: [facility] Address: [address] [place] [address] Performed By: #### 5 8410-2 ####[facility]ORATORYCLIA [id number] [address] [place] MCV (RBC) [Entitic vol] 94.4 fL Normal 80.0-100.0 [facility] Comment on above: Order Comment: Speci men Type: BLOOD SPECIMENOrdering Facility: [facility] Address: [address] [place] [address] Performed By: #### 5 8410-2 ####[facility] LABORATORYCLIA [id number] [address] [place] Nucleated RBC (Bld) [#/Vol] 10*3/uL Normal <0.01 [facility] Comment on above: Order Comment: Speci men Type: BLOOD SPECIMENOrdering Facility: [facility] Address: [address] [place] [address] Performed By: #### 5 8410-2 ####[facility] LABORATORYCLIA [id number] [place] [id number] [place] Platelet mean volume (Bld) [Entitic vol] 9.4 fL Normal 9.0-12.7 [facility] Comment on above: Order Comment: Speci men Type: BLOOD SPECIMENOrdering Facility: [facility] Address: [address] [place] [address] Performed By: #### 5 8410-2 ####[facility] LABORATORYCLIA [id number] [place] [id number] [place] Platelets (Bld) [#/Vol] 196 10*3/uL Normal 150-400 [facility] Comment on above: Order Comment: Speci men Type: BLOOD SPECIMENOrdering Facility: [facility] Address: [address] [place] [address] Performed By: #### 5 8410-2 ####[facility] LABORATORYCLIA [id number] [place] [id number] [place] RBC (Bld) [#/Vol] 3.93 10*6/uL Low 4.20-6.00 [facility] Comment on above: Order Comment: Speci men Type: BLOOD SPECIMENOrdering Facility: [facility] Address: [address] [place] [address] Performed By: #### 5 8410-2 ####[facility] LABORATORYCLIA [id number] [place] [id number] [place] WBC (Bld) [#/Vol] 7.91 10*3/uL Normal 3.70-11.00 [facility] Comment on above: Order Comment: Speci men Type: BLOOD SPECIMENOrdering Facility: [facility] Address: [address] [place] [address] Performed By: #### 5 8410-2 ####[facility] LABORATORYCLIA [id number] [place] [id number] [place] HISTORY PHYSICALon HISTORY PHYSICAL HNO ID: [id number] Author: SONIA COMBS MD Service: Hospital Medicine Author Type: Physician Type: H&P Filed: 02/23/2024 19:19 Note Text: HISTORY AND PHYSICAL EXAMINATION SERVICE DATE: 02/23/2024 SERVICE TIME: 6:31 PM PRIMARY CARE PHYSICIAN: Graham Priest MD Subjective CHIEF COMPLAINT: Intractable back pain HPI: 63-year-old male with past medical history of hypertension, hyperlipidemia, A-fib, CAD, DM 2, arthritis and infrarenal abdominal aortic aneurysm. He was recently admitted on 02/18 for AAA repair with Dr. Stiles. He was discharged on Sunday and developed back pain on . Back pain persisted and he presented to the ER. In the ER CTA chest abdomen pelvis was done and showed no flow to right renal artery. [facility] requested transfer for vascular surgery evaluation. Dr. Stiles was actually contacted from [facility] and made recommendations for steroids and outpatient follow-up. No acute condition and no need for transfer or admission. Patient felt that back pain was so severe that he could not go home. [facility] then requested transfer again as their hospitalist did not feel comfortable admitting the patient. They were requesting transfer for specialty service of vascular surgery despite the above recommendations that were already made. I had them contact Dr. Stiles again to see if he would consider seeing the patient in consult. Dr. Stiles agreed and patient was accepted as transfer for intractable back pain. In the ER he received fentanyl 50 mcg x 3. No oral medications were given. No steroids were given. Labs unremarkable-hemoglobin 12.6, platelets 207, INR 1.1, creatinine 1.44, baseline around 1.0 Upon evaluation, patient appears comfortable. He states that pain medication at outside ER provided relief of right flank pain. He states that pain started on and has worsened since then. He is urinating adequately and having bowel movements. He endorses drinking 5-6 beers every night but denies history of alcohol withdrawal. Endorses marijuana use. FUNCTIONAL STATUS: Independent PAST MEDICAL HISTORY Diagnosis Date Atrial fibrillation ([facility]) DR ELISE COPD (chronic obstructive pulmonary disease) (HCC) PCP Coronary artery disease Diabetes (HCC) PCP gerd MED CONTROLLED Heart attack (HCC) DR ELISE -HE HAD LA 2019 High cholesterol MED CONTROLLED Hypertension MED CONTROLLED Infrarenal abdominal aortic aneurysm (AAA) without rupture (HCC) Peripheral vascular disease (HCC) DR STILES Sleep apnea CPAP 02 - 2 L/MIN AT SLEEP STUDY [place] PAST SURGICAL HISTORY Procedure Laterality Date APPENDECTOMY PAST SURGICAL HISTORY OF both thumbs for infection a year apart PAST SURGICAL HISTORY OF STENTS X 1 - CAD ANGIOPLASTY = 2019 FAMILY HISTORY Problem Relation Age of Onset Cancer Father liver- drank alot Social History Tobacco Use Smoking status: Every Day Current packs/day: 0.50 Average packs/day: 0.5 packs/day for 30.0 years (15.0 ttl pk-yrs) Types: Cigarettes Passive exposure: Current Smokeless tobacco: Never Tobacco comments: STARTED SMOKING TEENS ,QUIT SMOKING 2019 - 1.5 PACK A DAY Substance Use Topics Alcohol use: Yes Comment: few beers daily-4 Drug use: Yes Frequency: 7.0 times per week Comment: marijuana.-SMOKES HYDROcodone-acetaminophen (NORCO) 5-325 mg per tablet, Take 1 tablet by mouth every 8 hours as needed for up to 7 days., Disp: 20 tablet, Rfl: 0 apixaban (ELIQUIS) 5 mg tab(s), Take 5 mg by mouth two times a day. 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 ok to be off for or, Disp: , Rfl: alfuzosin SR (UROXATRAL) 10 mg 24 hr tablet, Take 10 mg by mouth once daily., Disp: , Rfl: atorvastatin (LIPITOR) 80 mg tablet, Take 80 mg by mouth once daily., Disp: , Rfl: losartan (COZAAR) 25 mg tablet, Take 25 mg by mouth two times a day., Disp: , Rfl: metFORMIN (GLUCOPHAGE) 500 mg tablet, Take 1,000 mg by mouth daily with dinner., Disp: , Rfl: metoprolol tartrate, short acting, (LOPRESSOR) 50 mg tablet, Take 50 mg by mouth two times a day., Disp: , Rfl: pantoprazole DR (PROTONIX) 40 mg tablet, Take 40 mg by mouth once daily., Disp: , Rfl: omega-3s/dha/epa/fish oil/D3 (VITAMIN-D + OMEGA-3 ORAL), Take 125 mg by mouth once daily. LD 02/18/24, Disp: , Rfl: semaglutide (OZEMPIC) 0.25 mg or 0.5 mg(2 mg/1.5 mL) pen, Inject 0.25 mg subcutaneously one time a week. ON SUNDAY LD 02/10/24, Disp: , Rfl: Coenzyme Q10 (CO Q-10) 200 mg cap, Take 200 mg by mouth once daily., Disp: , Rfl: ascorbic acid, vitamin C, (VITAMIN C) 500 mg tablet, Take 1,000 mg by mouth once daily., Disp: , Rfl: Magnesium 250 mg tab, Take 500 mg by mouth once daily., Disp: , Rfl: pyridoxine, vitamin B6, (VITAMIN B-6) 100 mg tablet, Take 100 mg by mouth once daily., Disp: , Rfl: ALBUTEROL INHALATION, Inhale 2 Puffs as instructed every 4 hours as needed., Disp: , Rfl: OXYGEN, HOME THER (more content not included)... [facility] 02-20-2024 [facility] HNO ID: [id number] Author: KYUNG STILES MD Service: Vascular Surgery Author Type: Physician Type: Discharge Summary Filed: 02/20/2024 09:05 Note Text: Department of Vascular Surgery Discharge Summary (Template ID [id number]) PATIENT NAME: Bravo Freedman ADMISSION DATE: 02/19/2024 DISCHARGE DATE: 02/20/2024 Attending Physician: Kyung Stiles MD Code Status: Not on file Primary Service: Admission Diagnosis: aaa Discharge Diagnosis: same Reason for Hospitalization: see HANDP Operations during Hospitalization: evar Hospital Course Pt had evar and did well. Good pulses and no hematoma and tolerating diet. Walking halls and cleared d/c * Patient Condition at Discharge: Improved * Disposition: Home with Home Health Problem List: Patient Active Hospital Problem List: Aneurysm of abdominal vessel (HCC) Date Noted: 02/19/2024 Preop testing Date Noted: 02/18/2024 Obesity, Class I, BMI 30-34.9 Date Noted: 02/18/2024 Obstructive sleep apnea syndrome Date Noted: 02/19/2024 Obesity, Class III, BMI >= 40 Date Noted: 02/20/2024 Consults: None Procedures Performed and Major Radiology: none Information Provided to the Patient: Patient given copy of After Visit Summary which included activity instructions, diet instructions, wound care instructions, medication instructions and follow up appointment. ALLERGIES Allergen Reactions Codeine Gives him a migraine Discharge Medications: Medication List START taking these medications HYDROcodone-acetaminophen 5-325 mg per tablet Commonly known as: NORCO Take 1 tablet by mouth every 8 hours as needed for up to 7 days. CONTINUE taking these medications ALBUTEROL INHALATION alfuzosin SR 10 mg 24 hr tablet Commonly known as: UROXATRAL aspirin 325 mg tablet atorvastatin 80 mg tablet Commonly known as: LIPITOR CO Q-10 200 mg Cap Generic drug: Coenzyme Q10 ELIQUIS 5 mg tab(s) Generic drug: apixaban losartan 25 mg tablet Commonly known as: COZAAR Magnesium 250 mg Tab metFORMIN 500 mg tablet Commonly known as: GLUCOPHAGE metoprolol tartrate (short acting) 50 mg tablet Commonly known as: LOPRESSOR OXYGEN (HOME THERAPY) OZEMPIC 0.25 mg or 0.5 mg(2 mg/1.5 mL) pen Generic drug: semaglutide pantoprazole DR 40 mg tablet Commonly known as: PROTONIX VITAMIN B-6 100 mg tablet Generic drug: pyridoxine (vitamin B6) VITAMIN C 500 mg tablet Generic drug: ascorbic acid (vitamin C) VITAMIN-D + OMEGA-3 ORAL Where to Get Your Medications These medications were sent to [facility] [address] [place], [place] [id number] [place] [address] [place] [id number] HYDROcodone-acetaminophen 5-325 mg per tablet Future Appointments: No future appointments. Electronically SIGNED by Licensed Independent Practitioner: Kyung Stiles MD [facility] ANES POSTPROC EVALon 024 ANES POSTPROC EVAL HNO ID: [id number] Author: FRANCESCA DOWNS DO Service: ? Author Type: Anesthesiologist Type: Anesthesia Postprocedure Evaluation Filed: 02/19/2024 13:58 Note Text: POST ANESTHESIA EVALUATION NOTE : 1960 Procedure Summary Date: 02/19/24 Room / Location: OR / OR Anesthesia Start: 930 Anesthesia Stop: 1140 Procedure: ENDOGRAFT ENDOVASCULAR ABDONMINAL ANEURYSM REPAIR, WITHOUT RUPTURE (Abdomen) Diagnosis: Aneurysm of infrarenal abdominal aorta, unspecified whether ruptured (HCC) (Aneurysm of infrarenal abdominal aorta, unspecified whether ruptured (HCC) [I71.43]) Surgeons: Kyung Stiles MD Responsible Provider: Santana Boyd DO Anesthesia Type: general ASA Status: 3 Anesthesia Type: general Airway Type: ETT Last Vitals Vitals Value Taken Time BP 146/73 02/19/24 1346 Temp 36.8 ?C (98.3 ?F) 02/19/24 1315 Pulse 56 02/19/24 1354 Resp 16 02/19/24 1245 SpO2 96 % 02/19/24 1354 Vitals shown include unfiled device data. Post Anesthesia Patient Status Patient Evaluation: PACU. PACU/ICU Patient Condition: stable. Anticipated Disposition: inpatient floor planned admission. Neurological Status: aware and responsive. Pulmonary Status: breathing comfortably on supplemental oxygen Airway Control: returned to baseline unsupported. Cardiovascular Status: stable. Pain Management: clinically adequate Postoperative Hydration: acceptable. Intraoperative Events: no significant anesthesia events Post Operative Nausea/Vomiting Status: no significant post operative nausea or vomiting Recommendation: further care per PACU/ICU/floor team. Anesthesia Observations No Documentation SIGNATURE: Francesca Downs DO PATIENT NAME: Bravo Freedman DATE: February 19, 2024 TIME: 1:57 PM CSN: [id number] [facility] ANES PRE-OPon 02-19-2024 ANES PRE-OP HNO ID: [id number] Author: SANTANA BOYD DO Service: Anesthesiology Author Type: Anesthesiologist Type: Anesthesia Preprocedure Evaluation Filed: 02/19/2024 09:03 Note Text: ANESTHESIOLOGY DAY OF SURGERY NOTE : 1960 Procedure Information Date/Time: 02/19/24929 Procedure: ENDOVASCULAR ABDONMINAL ANEURYSM REPAIR, ENDOGRAFT, WITHOUT RUPTURE (Abdomen) Location: MR OR 16 / MR OR Surgeons: Kyung Stiles MD Estimated body mass index is 40.43 kg/m? as calculated from the following: Height as of this encounter: 175.3 cm (5' 9). Weight as of this encounter: 124.2 kg (273 lb 13 oz). Most recent hematocrit and potassium results: Hematocrit 44.3 02/19/2024 Potassium 4.5 02/19/2024 Relevant Problems ANESTHESIA (+) Obstructive sleep apnea syndrome PULMONARY (+) Obstructive sleep apnea syndrome I - PHYSICAL EVALUATION AIRWAY Patient intubated: No. Tracheostomy tube not present Mallampati: III. TM distance: >3 FB. Neck ROM: full ROM without neurological symptoms. Mouth opening: adequate. Short neck: no. Thick neck: yes Lip Bite Test: II Microretrognathia/Micronag thia/Recessed Chin: No DENTAL Dentures, upper: complete. Additional exam findings: yes. CARDIOVASCULAR Normal cardiovascular observations. PULMONARY Breath sounds clear to auscultation. ABDOMINAL Obese: obesity present. Abdomen: soft. Other findings: A/ox3. II - ANESTHESIA PLAN ASA Score: 3 Anesthetic Plan: general Airway type: ETT The patient is a current smoker. NPO Status: adequate Beta Mariusz Monitoring Plan Monitoring plan: standard ASA and invasive hemodynamic monitoring. Monitoring method: arterial Line Post Procedure Analgesic Plan Postoperative analgesic plan: parenteral or oral opioids, multimodal analgesia and per surgical service. Informed Consent Anesthetic risks, benefits, alternatives, personnel and consent discussed: yes. Patient / Responsible Libertarian agrees to proceed: yes Patient / Surrogate agrees to blood products: Yes Significant changes in the patient condition since the History and Physical, not otherwise documented in primary service progress note: no. Potential Anesthesia issues that may suggest increased risk of complications or contraindication to planned procedure: none. Discussed the possibility of lip / dental damage: yes Vitals Value Taken Time BP 136/82 02/19/24 0653 Pulse 60 02/19/24 0652 Resp 20 02/19/24 0651 Temp 37 ?C (98.6 ?F) 02/19/24 0651 SpO2 94 % 02/19/24 0652 Vitals shown include unfiled device data. Facility-Administered Medications as of 02/19/2024 Medication Dose Route Frequency - [COMPLETED] lidocaine (PF) 10 mg/mL (1 %) 2 mg injection (XYLOCAINE) 0.2 mL INTRADERMAL PRN - NaCl 0.9% iv flush bag 20 mL INTRAVENOUS PRN - ceFAZolin iv piggyback 2 g in D5W (iso-osmotic) 100 mL (ANCEF) 2 g INTRAVENOUS ONCE Outpatient Medications as of 02/19/2024 Medication Sig - apixaban (ELIQUIS) 5 mg tab(s) Take 5 mg by mouth two times a day. 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 - atorvastatin (LIPITOR) 80 mg tablet Take 80 mg by mouth once daily. - losartan (COZAAR) 25 mg tablet Take 25 mg by mouth two times a day. - metFORMIN (GLUCOPHAGE) 500 mg tablet Take 1,000 mg by mouth daily with dinner. - metoprolol tartrate, short acting, (LOPRESSOR) 50 mg tablet Take 50 mg by mouth two times a day. - pantoprazole DR (PROTONIX) 40 mg tablet Take 40 mg by mouth once daily. - omega-3s/dha/epa/fish oil/D3 (VITAMIN-D + OMEGA-3 ORAL) Take 125 mg by mouth once daily. LD 02/18/24 - semaglutide (OZEMPIC) 0.25 mg or 0.5 mg(2 mg/1.5 mL) pen Inject 0.25 mg subcutaneously one time a week. ON SUNDAY LD 02/10/24 - Coenzyme Q10 (CO Q-10) 200 mg cap Take 200 mg by mouth once daily. - ascorbic acid, vitamin C, (VITAMIN C) 500 mg tablet Take 1,000 mg by mouth once daily. - Magnesium 250 mg tab Take 500 mg by mouth once daily. - pyridoxine, vitamin B6, (VITAMIN B-6) 100 mg tablet Take 100 mg by mouth once daily. - ALBUTEROL INHALATION Inhale 2 Puffs as instructed every 4 hours as needed. - OXYGEN, HOME THERAPY, Inhale 2 L/min as instructed daily at bedtime. WITH CPAP - aspirin 325 mg tablet Take 81 mg by mouth once daily. He may continue asa per dr stiles I have interviewed and examined the patient. I have reviewed the medical record and/or the pre-anesthesia evaluation, pertinent labs, and test results. This contains updated information obtained within 48 hours of Surgery/Procedure. SIGNATURE: Santana Boyd DO PATIENT NAME: Bravo Freedman DATE: February 19, 2024 TIME: 9:01 AM CSN: [id number] [facility] BLOOD BANK COMMENTon 024 BLOOD BANK COMMENT See Comment [facility] Comment on above: Order Comment: Speci men Type: BLOOD SPECIMEN [facility] Address: [address] [place] [address] Result Comment: 2nd sample NEEDED for ABO confirmation (CONABO) notified Diana in SDS at 713a Performed By: #### L [id number], TSCR #### [facility] CLIA [id number] [address] [place] [address] [place] Basic metabolic 2000 panelon 02-19-2024 Anion gap [Moles/Vol] 3 mmol/L Low 5-16 [facility] Comment on above: Order Comment: Speci men Type: BLOOD SPECIMEN [facility] Address: [address] [place] [address] Performed By: #### 2 4321-2 #### [facility] CLIA [id number] [address] [place] [address] [place] Calcium [Mass/Vol] 10.0 mg/dL Normal 8.5-10.5 [facility] Comment on above: Order Comment: Speci men Type: BLOOD SPECIMEN [facility] Address: [address] [place] [address] Performed By: #### 2 4321-2 #### [facility] CLIA [id number] [address] [place] [address] [place] Chloride [Moles/Vol] 106 mmol/L Normal 98-107 [facility] Comment on above: Order Comment: Speci men Type: BLOOD SPECIMEN [facility] Address: [address] [place] [address] Performed By: #### 2 4321-2 #### [facility] CLIA [id number] [address] [place] [address] [place] CO2 [Moles/Vol] 31 mmol/L Normal 21-32 [facility] Comment on above: Order Comment: Speci men Type: BLOOD SPECIMEN [facility] Address: [address] [place] [address] Performed By: #### 2 4321-2 #### [facility] CLIA [id number] [address] [place] [address] [place] Creatinine [Mass/Vol] 0.76 mg/dL Normal 0.50-1.40 [facility] Comment on above: Order Comment: Venus carrillo Type: BLOOD SPECIMEN [facility] Address: [address] [place] [address] Result Comment: Rosa ents receiving either N-Acetylcysteine (NAC) or Metamizole prior to venipuncture, may have falsely depressed results. Performed By: #### 2 4321-2 #### [facility] CLIA [id number] [address] [place] [address] Creatinine and Glomerular filtration rate.predicted panel (S/P/Bld) 101 mL/min/1.73m??? Normal >=60 [facility] Comment on above: Order Comment: Venus carrillo Type: BLOOD SPECIMEN [facility] Address: [address] [place] [address] Result Comment: Rachana mated Glomerular Filtration Rate (eGFR) is calculated using the 2020 CKD-EPI creatinine equation. This equation utilizes serum creatinine, sex, and age as parameters. The creatinine assay has traceable calibration to isotope dilution-mass spectrometry. Refer to KDIGO guidelines for clinical interpretation. In patients with unstable renal function, e.g. those with acute kidney injury, the eGFR may not accurately reflect actual GFR. Performed By: #### 2 4321-2 #### [facility] CLIA [id number] [address] [place] [address] [place] Glucose [Mass/Vol] 125 mg/dL High 70-100 [facility] Comment on above: Order Comment: Venus carrillo Type: BLOOD SPECIMEN [facility] Address: [address] [place] [address] Result Comment: The [place] [employer] (ADA) provides guidance for cutoff values for fasting glucose and random glucose. The ADA defines fasting as no caloric intake for at least 8 hours. Fasting plasma glucose results between 100 to 125 mg/dL indicate increased risk for diabetes (prediabetes). Fasting plasma glucose results greater than or equal to 126 mg/dL meet the criteria for diagnosis of diabetes. In the absence of unequivocal hyperglycemia, results should be confirmed by repeat testing. In a patient with classic symptoms of hyperglycemia or hyperglycemic crisis, random plasma glucose results greater than or equal to 200 mg/dL meet the criteria for diagnosis of diabetes. Reference: Standards of Medical Care in Diabetes 2016, [place] [employer] Association. Diabetes Care. 2016.39(Suppl 1). Results may be falsely elevated after the administration of Sulfapyridine. Results may be falsely depressed after the administration of Sulfasalazine. Performed By: #### 2 4321-2 #### [facility] CLIA [id number] [address] [place] [address] [place] Potassium [Moles/Vol] 4.5 mmol/L Normal 3.5-5.1 [facility] Comment on above: Order Comment: Venus carrillo Type: BLOOD SPECIMEN [facility] Address: [address] [place] [address] Performed By: #### 2 4321-2 #### [facility] CLIA [id number] [address] [place] [address] [place] Sodium [Moles/Vol] 140 mmol/L Normal 136-145 [facility] Comment on above: Order Comment: Venus carrillo Type: BLOOD SPECIMEN [facility] Address: [address] [place] [address] Performed By: #### 2 4321-2 #### [facility] CLIA [id number] [address] [place] [address] [place] Urea nitrogen [Mass/Vol] 16 mg/dL Normal 7-26 [facility] Comment on above: Order Comment: Venus carrillo Type: BLOOD SPECIMEN [facility] [facility] Address: [address] [place] [address] Performed By: #### 2 4321-2 #### [facility] CLIA [id number] [address] [place] [address] [place] CBC W Auto Differential pane l (Bld)on 02-19-2024 Basophils (Bld) [#/Vol] 0.08 10*3/uL Normal <0.11 [facility] Comment on above: Order Comment: Speci men Type: BLOOD SPECIMEN [facility]ing Facility: [facility] Address: [address] [place] [address] Performed By: #### 5 7021-8 #### [facility] CLIA [id number] [address] [place] [address] [place] Basophils/100 WBC (Bld) 1.2 % Normal [facility] Comment on above: Order Comment: Speci men Type: BLOOD SPECIMEN [facility]ing Facility: [facility] Address: [address] [place] [address] Performed By: #### 5 7021-8 #### [facility] CLIA [id number] [address] [place] [address] [place] Differential cell count method Nom (Bld) Auto Normal [facility] Comment on above: Order Comment: Speci men Type: BLOOD SPECIMEN [facility]ing Facility: [facility] Address: [address] [place] [address] Performed By: #### 5 7021-8 #### [facility] CLIA [id number] [address] [place] [address] [place] Eosinophils (Bld) [#/Vol] 0.25 10*3/uL Normal <0.46 [facility] Comment on above: Order Comment: Speci men Type: BLOOD SPECIMEN [facility]ing Facility: [facility] Address: [address] [place] [address] Performed By: #### 5 7021-8 #### [facility] CLIA [id number] [address] [place] [address] [place] Eosinophils/100 WBC (Bld) 3.7 % Normal [facility] Comment on above: Order Comment: Speci men Type: BLOOD SPECIMEN [facility]ing Facility: [facility] Address: [address] [place] [address] Performed By: #### 5 7021-8 #### [facility] CLIA [id number] [address] [place] [address] [place] Erythrocyte distribution width (RBC) [Ratio] 13.8 % Normal 11.5-15.0 [facility] Comment on above: Order Comment: Speci men Type: BLOOD SPECIMEN [facility]ing Facility: [facility] Address: [address] [place] [address] Performed By: #### 5 7021-8 #### [facility] CLIA [id number] [address] [place] [address] [place] Hematocrit (Bld) [Volume fraction] 44.3 % Normal 39.0-51.0 [facility] Comment on above: Order Comment: Speci men Type: BLOOD SPECIMEN [facility] Address: [address] [place] [address] Performed By: #### 5 7021-8 #### [facility] CLIA [id number] [address] [place] [address] [place] Hemoglobin (Bld) [Mass/Vol] 14.5 g/dL Normal 13.0-17.0 [facility] Comment on above: Order Comment: Speci men Type: BLOOD SPECIMEN [facility] Address: [address] [place] [address] Performed By: #### 5 7021-8 #### [facility] CLIA [id number] [address] [place] [address] [place] Immature granulocytes (Bld) [#/Vol] 0.07 10*3/uL Normal <0.10 [facility] Comment on above: Order Comment: Speci men Type: BLOOD SPECIMEN [facility]ing Facility: [facility] Address: [address] [place] [address] Performed By: #### 5 7021-8 #### [facility] CLIA [id number] [address] [place] [address] [place] Immature granulocytes/100 WBC (Bld) 1.0 % Normal [facility] Comment on above: Order Comment: Speci men Type: BLOOD SPECIMEN [facility] Address: [address] [place] [address] Performed By: #### 5 7021-8 #### [facility] CLIA [id number] [address] [place] [address] [place] Lymphocytes (Bld) [#/Vol] 1.98 10*3/uL Normal 1.00-4.00 [facility] Comment on above: Order Comment: Speci men Type: BLOOD SPECIMEN [facility]ing [facility] Address: [address] [place] [address] Performed By: #### 5 7021-8 #### [facility] CLIA [id number] [address] [place] [address] [place] Lymphocytes/100 WBC (Bld) 29.2 % Normal [facility] Comment on above: Order Comment: Speci men Type: BLOOD SPECIMEN Ordering [facility]: [facility] Address: [address] [place] [address] Performed By: #### 5 7021-8 #### [facility] CLIA [id number] [address] [place] [address] [place] MCH (RBC) [Entitic mass] 31.5 pg Normal 26.0-34.0 [facility] Comment on above: Order Comment: Speci men Type: BLOOD SPECIMEN [facility] Address: [address] [place] [address] Performed By: #### 5 7021-8 #### [facility] CLIA [id number] [address] [place] [address] [place] MCHC (RBC) [Mass/Vol] 32.7 g/dL Normal 30.5-36.0 [facility] Comment on above: Order Comment: Speci men Type: BLOOD SPECIMEN [facility]ing [facility] Address: [address] [place] [address] Performed By: #### 5 7021-8 #### [facility] CLIA [id number] [address] [place] [address] [place] MCV (RBC) [Entitic vol] 96.1 fL Normal 80.0-100.0 [facility] Comment on above: Order Comment: Speci men Type: BLOOD SPECIMEN Ordering Facility: [facility] Address: [address] [place] [address] Performed By: #### 5 7021-8 #### [facility] CLIA [id number] [address] [place] [address] [place] Monocytes (Bld) [#/Vol] 0.53 10*3/uL Normal <0.87 [facility] Comment on above: Order Comment: Speci men Type: BLOOD SPECIMEN Ordering [facility] Address: [address] [place] [address] Performed By: #### 5 7021-8 #### [facility] CLIA [id number] [address] [place] [address] [place] Monocytes/100 WBC (Bld) 7.8 % Normal [facility] Comment on above: Order Comment: Speci men Type: BLOOD SPECIMEN [facility]ing [facility] Address: [address] [place] [address] Performed By: #### 5 7021-8 #### [facility] CLIA [id number] [address] [place] [address] [place] Neutrophils (Bld) [#/Vol] 3.87 10*3/uL Normal 1.45-7.50 [facility] Comment on above: Order Comment: Speci men Type: BLOOD SPECIMEN [facility] Address: [address] [place] [address] Performed By: #### 5 7021-8 #### [facility] CLIA [id number] [address] [place] [address] [place] Neutrophils/100 WBC (Bld) 57.1 % Normal [facility] Comment on above: Order Comment: Speci men Type: BLOOD SPECIMEN [facility] Address: [address] [place] [address] Performed By: #### 5 7021-8 #### [facility] CLIA [id number] [address] [place] [address] [place] Nucleated RBC (Bld) [#/Vol] 10*3/uL Normal <0.01 [facility] Comment on above: Order Comment: Speci men Type: BLOOD SPECIMEN [facility] Address: [address] [place] [address] Performed By: #### 5 7021-8 #### [facility] CLIA [id number] [address] [place] [address] [place] Nucleated RBC/100 WBC (Bld) [Ratio] 0.0 /100 WBC Normal [facility] Comment on above: Order Comment: Speci men Type: BLOOD SPECIMEN [facility]ing [facility] Address: [address] [place] [address] Performed By: #### 5 7021-8 #### [facility] CLIA [id number] [address] [place] [address] [place] Platelet mean volume (Bld) [Entitic vol] 9.1 fL Normal 9.0-12.7 [facility] Comment on above: Order Comment: Speci men Type: BLOOD SPECIMEN [facility]ing [facility] Address: [address] [place] [address] Performed By: #### 5 7021-8 #### [facility] CLIA [id number] [address] [place] [address] [place] Platelets (Bld) [#/Vol] 212 10*3/uL Normal 150-400 [facility] Comment on above: Order Comment: Speci men Type: BLOOD SPECIMEN [facility]ing [facility] Address: [address] [place] [address] Performed By: #### 5 7021-8 #### [facility] CLIA [id number] [address] [place] [address] [place] RBC (Bld) [#/Vol] 4.61 10*6/uL Normal 4.20-6.00 [facility] Comment on above: Order Comment: Speci men Type: BLOOD SPECIMEN [facility]ing [facility] Address: [address] [place] [address] Performed By: #### 5 7021-8 #### [facility] CLIA [id number] [address] [place] [address] OF [place] WBC (Bld) [#/Vol] 6.78 10*3/uL Normal 3.70-11.00 [facility] Comment on above: Order Comment: Speci men Type: BLOOD SPECIMEN [facility]ing [facility]: [facility] Address: [address] [place] [address] Performed By: #### 5 7021-8 #### [facility] CLIA [id number] [address] [place] [address] CONFIRM BLOOD TYPEon 024 ABO O Normal [facility] Comment on above: Order Comment: Speci men Type: BLOOD SPECIMEN Ordering Facility: [facility] Address: [address] [place] [address] Performed By: #### C ONABO #### [facility] CLIA [id number] [address] [place] [address] [place] Rh Nom (Bld) Positive [facility] Comment on above: Order Comment: Speci men Type: BLOOD SPECIMEN Ordering Facility: [facility] Address: [address] [place] [address] Performed By: #### C ONABO #### [facility] CLIA [id number] [address] [place] [address] HISTORY PHYSICALon HISTORY PHYSICAL HNO ID: [id number] Author: KYUNG STILES MD Service: Vascular Surgery Author Type: Physician Type: H&P Filed: 02/19/2024 07:35 Note Text: SEE hANDp, NO CHANGE PLAN ENDOVASCULAR ANEURYSM REPAIR Kyung Stiles MD [facility] OPERATIVE NOon 02-19-2024 OPERATIVE NO HNO ID: [id number] Author: KYUNG STILES MD Service: Vascular Surgery Author Type: Physician Type: Operative Report Filed: 02/19/2024 11:47 Note Text: OPERATIVE/PROCEDURE REPORT LOG ID: [id number] SURGERY/PROCEDURE DATE: 02/19/2024 INCISION/PROCEDURE START TIME: INCISION CLOSE/PROCEDURE END TIME: SURGEON(S)/PROCEDURALIST(S ) AND DRAWER UPFITTER(S): Surgeons and Role: * Kyung Stiles MD - Primary Nurse Practitioner: Millie Vera APRN.POLISHING MACHINE TENDER Thermostat Repairer: Tiana Roach SA SURGERY/PROCEDURE(S): 1. Ultrasound access retrograde bilateral common femoral arteries. Preclosed with bilateral Pro-glide's. 2. Aortogram with bilateral lower femoral angiogram. 3. Endovascular aneurysm repair with Rougon excluder 28 mm main body with a ipsilateral right 60 mm limb and a contralateral left 20 mm limb ANESTHESIA: General SURGERY/PROCEDURE DETAILS: Patient brought to the operating room. And with appropriate timeout consent. Underwent general anesthesia. Given appropriate biotics. All appropriate monitoring lines were placed. Was prepped and draped in a sterile fashion. We did ultrasound access retrograde bilateral common femoral arteries. Put in 2 Pro-glide's. We put in a 16 [place] sheath on the right and a 12 [place] sheath on the left after switching the stiffer wires. We then brought up the main body did an aortogram. We deployed the main body at the level of the renal arteries. We accessed the contralateral gate. We then finished a point in the main body which was 20.5 excluder conformable. This is in good position. We then extended down the contralateral left side with a 20 mm x 13.5 cm limb and then extended on the ipsilateral right 16 mm x 11.5 cm limb. We balloon proximally, both junction and distally. Completion angio showed great flow. No evidence of a type I, type II or type III endoleak. We then closed with Pro-glide's both groins. Closed with Vicryl 4-0 Monocryl and then Dermabond. Patient awoke brought to recovery stable condition. Fluoroscopy Fluoroscopy: 7.8 minutes Dose: 1787 mGy Contrast dye: 52 cc PRE-OP/PRE-PROCEDURE DIAGNOSIS: Aortic aneurysm POST-OP/POST-PROCEDURE DIAGNOSIS: Same ESTIMATED BLOOD LOSS: <15 cc SPECIMENS: None IMPLANTABLE DEVICES: Rougon excluder stent graft DRAINS: None COMPLICATIONS: None SIGNATURE: Kyung Stiles MD PATIENT NAME: Bravo Freedman DATE: February 19, 2024 TIME: 9:55 AM [facility] TYPE + SCREENon 02-19-2024 ABO O [facility] Comment on above: Order Comment: Speci men Type: BLOOD SPECIMEN [facility] Address: [address] [place] [address] Performed By: #### L [id number], TSCR #### [facility] CLIA [id number] [address] [place] [address] Rh Nom (Bld) Positive [facility] Comment on above: Order Comment: Speci men Type: BLOOD SPECIMEN [facility] Address: [address] [place] [address] Performed By: #### L [id number], TSCR #### [facility] CLIA [id number] [address] [place] [address] TYPE AND SCREEN EXPIRATION 02/22/2024 23:59 [facility] Comment on above: Order Comment: Speci men Type: BLOOD SPECIMEN [facility]ing [facility] Address: [address] [place] [address] Performed By: #### L [id number], TSCR #### [facility] CLIA [id number] [address] [place] [address] [place] ANES PREOPon 02-18-2024 ANES PREOP HNO ID: [id number] Author: ALCON SR PA-C Service: ? Author Type: Physician Dry Goods Inspector Type: Anesthesia PreOp Filed: 02/18/2024 10:10 Note Text: 63 yo male obese, smoker, 3-4 beers daily, +MJ daily PMH: Afib (Gosia - Eliquis LD 02/15), CAD/LA w/ PCI/stent 2018 (ASA), DM2 (Ozempic LD 02/09), COPD on O2 PRN, ORTIZ on CPAP w/ 2L O2 bleed in, HTN, HLD, GERD, infrarenal abdominal aortic aneurysm/PVD (Go) [facility] NURSING PROGon 02-18-2024 NURSING PROG HNO ID: [id number] Author: BEKAH JANG RN Service: Nursing Author Type: Registered Nurse Type: Nursing Progress Note Filed: 02/18/2024 15:45 Note Text: PRE-PROCEDURE INSTRUCTIONS TO PREPARE FOR YOUR PROCEDURE: Your arrival time for your procedure is 0645. Do NOT eat any solid foods after MIDNIGHT the night prior to your procedure - this includes gum or mints. You can drink clear liquids* up until 0445, which is 2 hours before your arrival time. *Clear liquids = water, carbohydrate drink (sports drink that is clear or yellow in color), Ensure Pre-Surgery (given by JOSE L or your DrNimo), fruit juice without pulp (apple/cranberry), clear tea, black coffee (no cream). NO CARBONATED BEVERAGES AND NO ALCOHOL. Shower the morning of the procedure, put on clean clothes, and have clean sheets for your bed to help prevent infection after your procedure. Leave all valuables such as jewelry including rings, piercings, wallets, and purses at home. Wear comfortable, loose-fitting clothing. If you wear glasses or contacts, please bring a case. SPECIAL INSTRUCTIONS: If instructed, bring your first voided urine specimen with you. If you were provided skin preparation to use prior to your procedure, complete this as directed. If a bowel preparation has been ordered by your physician, it is very important to follow the bowel prep instructions or your procedure may need to be rescheduled. If you use crutches or a walker, bring them with you. If you have a home CPAP/BIPAP machine, bring it with you. If you were instructed to complete a fleets enema or bowel prep, complete as directed. Bring copy of Living Will/Power of Community Health Promoter. Do not smoke or chew. If you use tobacco, quit or at least cut down before surgery. Do not smoke or chew after midnight the day before your surgery. This effects bleeding, infection, healing, and so much more. Do not take any Diet or Herbal Supplements 2 weeks prior to your surgery date. Please notify your physician if there is any change in your physical condition such as a cold, cough, fever, sore throat, or skin irritation near the surgical site. Visitors under the age of 14 are restricted in the Surgery Center. UPON ARRIVAL: Access to [facility] (the infirmary west) is located on [address] Technical Maintenance Technician parking is available for your convenience from 5am-5pm- there is a $5.00 charge for this service. Take the elevators directly inside the entrance to the 1st Floor Surgery Lobby. Sign in at the podium located to the left when you get off the elevators. A payment may be expected at the time of service. One visitor may come back to the preoperative area with you. The preoperative staff will be reviewing your medical history, please let them know if you prefer not to have a visitor with you during this time. Once you are ready for your procedure, two visitors at a time are permitted in your preprocedure room. MEDICATION INSTRUCTIONS PRIOR TO SURGERY Please read below carefully for your personalized instructions. Medications: If you are on blood thinner or anticoagulants including aspirin, please confirm with your surgical team on when to stop these medications. Unless instructed differently by your surgical team, stay on all of your medications until your surgery. Pre-Surgery Med Instructions Medication Instructions apixaban (ELIQUIS) 5 mg tab(s) Follow Prescribers Instructions alfuzosin SR (UROXATRAL) 10 mg 24 hr tablet DO NOT TAKE MORNING OF SURGERY atorvastatin (LIPITOR) 80 mg tablet If you normally take this medication in the morning, it is ok to take the morning of surgery with a sip of water. losartan (COZAAR) 25 mg tablet DO NOT TAKE MORNING OF SURGERY metFORMIN (GLUCOPHAGE) 500 mg tablet DO NOT TAKE MORNING OF SURGERY metoprolol tartrate, short acting, (LOPRESSOR) 50 mg tablet If you normally take this medication in the morning, it is ok to take the morning of surgery with a sip of water. pantoprazole DR (PROTONIX) 40 mg tablet Take morning of surgery with a sip of water, no other fluids omega-3s/dha/epa/fish oil/D3 (VITAMIN-D + OMEGA-3 ORAL) DO NOT TAKE MORNING OF SURGERY semaglutide (OZEMPIC) 0.25 mg or 0.5 mg(2 mg/1.5 mL) pen May resume after surgery Coenzyme Q10 (CO Q-10) 200 mg cap DO NOT TAKE MORNING OF SURGERY ascorbic acid, vitamin C, (VITAMIN C) 500 mg tablet DO NOT TAKE MORNING OF SURGERY Magnesium 250 mg tab DO NOT TAKE MORNING OF SURGERY pyridoxine, vitamin B6, (VITAMIN B-6) 100 mg tablet DO NOT TAKE MORNING OF SURGERY ALBUTEROL INHALATION Use Day of Surgery OXYGEN, HOME THERAPY, PRN if needed aspirin 325 mg tablet Follow Prescribers Instructions If you have any medication changes between receiving these instructions and your surgery date, please provide this updated information with the nurse who calls you the week day prior to your surgical procedure so we can update your list and p (more content not included)... Normal [facility] CT ANGIOGRAPHY ABD AORTA + I LIOFEMORALon 01-21-2024 CT ANGIOGRAPHY ABD AORTA + ILIOFEMORAL ORIGINAL EXAMINATION: CTA OF THE ABDOMEN AND PELVIS WITH CONTRAST 01/21/2024 2:26 pm: TECHNIQUE: CTA of the abdomen and pelvis was performed with the administration of intravenous contrast. Multiplanar reformatted images are provided for review. MIP images are provided for review. Automated exposure control, iterative reconstruction, and/or weight based adjustment of the mA/kV was utilized to reduce the radiation dose to as low as reasonably achievable. COMPARISON: None HISTORY: ORDERING SYSTEM PROVIDED HISTORY: Reason for Exam: INFERENAL ABDOMINAL AORTIC ANYRISM FINDINGS: CTA ABDOMEN: Abdominal aorta: 6.4 x 6.3 cm fusiform infrarenal abdominal aortic aneurysm with mural thrombus and mixing artifact. No surrounding inflammatory changes, sac de formation, or other findings of instability. Visceral arteries: The celiac, superior mesenteric, and renal arteries are patent. The inferior mesenteric artery is patent and originates off the aneurysm sac. CTA PELVIS: Moderate to severe iliac tortuosity without significant luminal stenosis. 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 Both common femoral arteries are patent with mild calcified atherosclerotic plaque. NON VASCULAR Evaluation of the abdominal and pelvic organs is limited on the current field of view. Visualized portions of the liver and spleen show no abnormality. No adrenal mass or significant nodularity. The pancreas is normal. No urinary calculi or hydronephrosis. No retroperitoneal adenopathy. No free intraperitoneal air or fluid. Visualized bowel loops show no obstruction. The prostate is enlarged with coarse calcification. No acute fracture or suspicious osseous lesion seen. There are moderate multilevel degenerative changes of the lumbar spine without high-grade bony canal stenosis. Degenerative changes of both sacroiliac joints. IMPRESSION: *6.4 cm fusiform infrarenal abdominal aortic aneurysm without CT evidence of instability. *2.1 cm fusiform left common iliac arterial aneurysm. RECOMMENDATIONS: *Short-term follow-up of aneurysm if endovascular or open repair is not being planned Interpreted by: Mauricio Henson Preliminary Report By: Mauricio Henson Electronically signed By Mauricio Henson Dictated Date: 01/21/2024 6:27:40 PM Prelim Date: 01/21/2024 6:38:38 PM Sign Date: 01/21/2024 6:38:38 PM Ordering Provider: KYUNG STILES [facility] No Panel InformationOrdered By: Abdulkadir Scruggs on 12-21-2022 Prostate Specific Antigen Total 4.27 ng/mL 0.0-4.0 [facility] Comment on above: This test was perfor med using the TPSA assay method for Frequency chemistry system. Values obtained with differentassay methods cannot be used interchangably.When changing PSA assays in the course of monitoring apatient, additional sequential testing should be carriedout to confirm baseline values. No Panel InformationOrdered By: Dr. Keating on 09-25-2022 Troponin I High Sensitivity 16 pg/mL 3.0-78.0 [facility] Comment on above: Please Note: New Jocelyn t Units and Gender Specific Reference Ranges. For more information see Policy Stat Procedure [place] High Sensitivity Troponin (TNIH) and attachments. Absolute lymphocyte countOrd ered By: Dr. Keating on 09-24-2022 Lymphocytes Auto (Unsp spec) [#/Vol] 2.12 10*3/uL 0.83-4.51 [facility] Basophil percentageOrdered B y: Dr. Keating on 09-24-2022 Basophils/100 WBC (Bld) 1.0 % 0-1 [facility] Chloride [Moles/Vol] 101 mmol/L 98-107 [facility] Eosinophils/100 WBC (Bld) 4.1 % 0-5 [facility] Glucose [Mass/Vol] 132 mg/dL 74-106 [facility] Comment on above: Fasting Glucose resu lt greater than or equal to 126 mg/dL suggests DIABETES MELLITUS per A.D.A. criteria. Neutrophils (Bld) [#/Vol] 3.9 10*3/uL 2.0-7.7 [facility] Neutrophils/100 WBC (Bld) 55.0 % 47-70 [facility] Potassium [Moles/Vol] 3.5 mmol/L 3.5-5.1 [facility] Sodium [Moles/Vol] 139 mmol/L 136-145 [facility] WBC (Bld) [#/Vol] 7.0 10*3/uL 4.4-11.0 [facility] Blood erythrocytes count (nu mber/volume)Ordered By: Dr. Keating on 09-24-2022 RBC (Bld) [#/Vol] 4.61 10*6/uL 4.6-6.2 [facility] Blood hemoglobin measurement (mass/volume)Ordered By: Dr. Keating on 09-24-2022 Hemoglobin (Bld) [Mass/Vol] 14.2 g/dL 13.0-16.5 [facility] Blood lymphocytes/100 leukoc ytesOrdered By: Dr. Keating on 09-24-2022 Lymphocytes/100 WBC (Bld) 30.2 % 19-41 [facility] Blood monocytes/100 leukocyt esOrdered By: Dr. Keating on 09-24-2022 Monocytes/100 WBC (Bld) 9.3 % 0-10 [facility] Blood platelet mean volumeOr dered By: Dr. Keating on 09-24-2022 Platelet mean volume (Bld) [Entitic vol] 9.6 fL 6.2-12.0 [facility] Determination of erythrocyte mean corpuscular volume (MCV)Ordered By: Dr. Keating on 09-24-2022 MCV (RBC) [Entitic vol] 94.1 fL 80-94 [facility] Hematocrit Auto (Bld) [Volum e fraction]Ordered By: Dr. Keating on 09-24-2022 Hematocrit (Bld) [Volume fraction] 43.4 % 40-54 [facility] Laboratory - Chemistry and C hemistry - challengeOrdered By: Dr. Keating on 09-24-2022 CO2 [Moles/Vol] 29.0 mmol/L 21.0-32.0 [facility] Urea nitrogen/Creatinine [Mass ratio] 14.7 mg/mg 10-20 [facility] Laboratory - Hematology and Cell countsOrdered By: Dr. Keating on 09-24-2022 Erythrocyte distribution width (RBC) [Entitic vol] 46.2 fL 35.1-43.9 [facility] Erythrocyte distribution width (RBC) [Ratio] 13.4 % 11.6-14.6 [facility] Immature granulocytes/100 WBC (Bld) 0.400 % 0.0-0.9 [facility] Comment on above: IG% - Immature Granu locytes (promyelocytes, myelocytes and metamyelocytes) > 1% indicates that a LEFT SHIFT is Present. MCH (RBC) [Entitic mass] 30.8 pg 27.0-32.0 [facility] Nucleated RBC/100 WBC (Bld) [Ratio] 0 % 0-5 [facility] MCHC Auto (RBC) [Mass/Vol]Or dered By: Dr. Keating on 09-24-2022 MCHC (RBC) [Mass/Vol] 32.7 g/dL 32-36 [facility] No Panel InformationOrdered By: Dr. Keating on 09-24-2022 Estimated Creatinine Clearance Calc 75.09 ml/min [facility] Estimated GFR (MDRD) Amer 95 mL/min >60 [facility] Comment on above: GFR Calc Estimated GFR (MDRD) Non-Af Amer 79 mL/min >60 [facility] Comment on above: Non- GFR Calc Platelets bldOrdered By: Dr. Keating on 09-24-2022 Platelets (Bld) [#/Vol] 215 10*3/uL 150-450 [facility] Serum or plasma calcium quincy urement (mass/volume)Ordered By: Dr. Keating on 09-24-2022 Calcium [Mass/Vol] 8.8 mg/dL 8.5-10.1 [facility] Serum or plasma creatinine m easurement (mass/volume)Ordered By: Dr. Keating on 09-24-2022 Creatinine [Mass/Vol] 1.02 mg/dL 0.70-1.30 [facility] Comment on above: The validity of the calculated GFR & GFRAA in patients over 70 years has not been determined. Clinical correlation is essential. Serum or plasma urea nitroge n measurement (mass/volume)Ordered By: Dr. Keating on 09-24-2022 Urea nitrogen [Mass/Vol] 15 mg/dL 7-18 [facility] Thin prep Papanicolaou smear with manual screeningOrdered By: Dr. Keating on 09-24-2022 Thin prep Papanicolaou smear with manual screening 9 5-15 [facility] Absolute lymphocyte counton 04-08-2022 Lymphocytes Auto (Unsp spec) [#/Vol] 2.44 10*3/uL 0.83-4.51 [facility] Work Phone: Basophil percentageon 2021 Basophils/100 WBC (Bld) 1.4 % 0-1 [facility] Work Phone: Chloride [Moles/Vol] 103 mmol/L 98-107 [facility] Work Phone: Eosinophils/100 WBC (Bld) 2.8 % 0-5 [facility] Work Phone: Glucose [Mass/Vol] 139 mg/dL 74-106 [facility] Work Phone: Comment on above: Fasting Glucose resu lt greater than or equal to 126 mg/dL suggests DIABETES MELLITUS per A.D.A. criteria. Neutrophils (Bld) [#/Vol] 4.2 10*3/uL 2.0-7.7 [facility] Work Phone: Neutrophils/100 WBC (Bld) 54.0 % 47-70 [facility] Work Phone: Potassium [Moles/Vol] 3.7 mmol/L 3.5-5.1 [facility] Work Phone: Sodium [Moles/Vol] 139 mmol/L 136-145 [facility] Work Phone: WBC (Bld) [#/Vol] 7.8 10*3/uL 4.4-11.0 [facility] Work Phone: Blood erythrocytes count (nu mber/volume)on 04-08-2022 RBC (Bld) [#/Vol] 4.31 10*6/uL 4.6-6.2 [facility] Work Phone: Blood hemoglobin measurement (mass/volume)on 04-08-2022 Hemoglobin (Bld) [Mass/Vol] 13.4 g/dL 13.0-16.5 [facility] Work Phone: Blood lymphocytes/100 leukoc yteson 04-08-2022 Lymphocytes/100 WBC (Bld) 31.4 % 19-41 [facility] Work Phone: Blood monocytes/100 leukocyt eson 04-08-2022 Monocytes/100 WBC (Bld) 9.0 % 0-10 [facility] Work Phone: Blood platelet mean volumeon 04-08-2022 Platelet mean volume (Bld) [Entitic vol] 10.2 fL 6.2-12.0 [facility] Work Phone: Determination of erythrocyte mean corpuscular volume (MCV)on 04-08-2022 MCV (RBC) [Entitic vol] 96.1 fL 80-94 [facility] Work Phone: Hematocrit Auto (Bld) [Volum e fraction]on 04-08-2022 Hematocrit (Bld) [Volume fraction] 41.4 % 40-54 [facility] Work Phone: Laboratory - Chemistry and C hemistry - challengeon 04-08-2022 CO2 [Moles/Vol] 29.0 mmol/L 21.0-32.0 [facility] Work Phone: Urea nitrogen/Creatinine [Mass ratio] 18.7 mg/mg 10-20 [facility] Work Phone: Laboratory - Hematology and Cell countson 04-08-2022 Erythrocyte distribution width (RBC) [Entitic vol] 48.4 fL 35.1-43.9 [facility] Work Phone: Erythrocyte distribution width (RBC) [Ratio] 13.6 % 11.6-14.6 [facility] Work Phone: Immature granulocytes/100 WBC (Bld) 1.400 % 0.0-0.9 [facility] Work Phone: Comment on above: IG% - Immature Granu locytes (promyelocytes, myelocytes and metamyelocytes) > 1% indicates that a LEFT SHIFT is Present. MCH (RBC) [Entitic mass] 31.1 pg 27.0-32.0 [facility] Work Phone: Nucleated RBC/100 WBC (Bld) [Ratio] 0 % 0-5 [facility] Work Phone: MCHC Auto (RBC) [Mass/Vol]on 04-08-2022 MCHC (RBC) [Mass/Vol] 32.4 g/dL 32-36 [facility] Work Phone: No Panel Informationon 04-08 Troponin I High Sensitivity 52 pg/mL 3.0-78.0 [facility] Work Phone: Comment on above: Please Note: New Jocelyn t Units and Gender Specific Reference Ranges. For more information see Policy Stat Procedure [place] High Sensitivity Troponin (TNIH) and attachments. Estimated Creatinine Clearance Calc 80.81 ml/min [facility] Work Phone: Estimated GFR (MDRD) Amer 102 mL/min >60 [facility] Work Phone: Comment on above: GFR Calc Estimated GFR (MDRD) Non-Af Amer 84 mL/min >60 [facility] Work Phone: Comment on above: Non- GFR Calc Platelets bldon 04-08-2022 Platelets (Bld) [#/Vol] 233 10*3/uL 150-450 [facility] Work Phone: Serum or plasma calcium quincy urement (mass/volume)on 04-08-2022 Calcium [Mass/Vol] 9.2 mg/dL 8.5-10.1 [facility] Work Phone: Serum or plasma creatinine m easurement (mass/volume)on 04-08-2022 Creatinine [Mass/Vol] 0.96 mg/dL 0.70-1.30 [facility] Work Phone: Comment on above: The validity of the calculated GFR & GFRAA in patients over 70 years has not been determined. Clinical correlation is essential. Serum or plasma urea nitroge n measurement (mass/volume)on 04-08-2022 Urea nitrogen [Mass/Vol] 18 mg/dL 7-18 [facility] Work Phone: Thin prep Papanicolaou smear with manual screeningon 04-08-2022 Thin prep Papanicolaou smear with manual screening 7 -15 [facility] Work Phone: [phone] Absolute lymphocyte counton 02-23-2022 Lymphocytes Auto (Unsp spec) [#/Vol] 2.02 10*3/uL 0.83-4.51 [facility] Work Phone: Basophil percentageon 2021 Basophils/100 WBC (Bld) 0.9 % 0-1 [facility] Work Phone: [phone] Chloride [Moles/Vol] 105 mmol/L 98-107 [facility] Work Phone: Eosinophils/100 WBC (Bld) 3.2 % 0-5 [facility] Work Phone: Glucose [Mass/Vol] 134 mg/dL 74-106 [facility] Work Phone: [phone] Comment on above: Fasting Glucose resu lt greater than or equal to 126 mg/dL suggests DIABETES MELLITUS per A.D.A. criteria. Neutrophils (Bld) [#/Vol] 5.5 10*3/uL 2.0-7.7 [facility] Work Phone: Neutrophils/100 WBC (Bld) 63.8 % 47-70 [facility] Work Phone: Potassium [Moles/Vol] 4.4 mmol/L 3.5-5.1 [facility] Work Phone: Sodium [Moles/Vol] 140 mmol/L 136-145 [facility] Work Phone: WBC (Bld) [#/Vol] 8.7 10*3/uL 4.4-11.0 [facility] Work Phone: Blood erythrocytes count (nu mber/volume)on 02-23-2022 RBC (Bld) [#/Vol] 4.65 10*6/uL 4.6-6.2 [facility] Work Phone: Blood hemoglobin measurement (mass/volume)on 02-23-2022 Hemoglobin (Bld) [Mass/Vol] 14.5 g/dL 13.0-16.5 [facility] Work Phone: Blood lymphocytes/100 leukoc yteson 02-23-2022 Lymphocytes/100 WBC (Bld) 23.2 % 19-41 [facility] Work Phone: Blood monocytes/100 leukocyt eson 02-23-2022 Monocytes/100 WBC (Bld) 7.8 % 0-10 [facility] Work Phone: Blood platelet mean volumeon 02-23-2022 Platelet mean volume (Bld) [Entitic vol] 10.0 fL 6.2-12.0 [facility] Work Phone: Determination of erythrocyte mean corpuscular volume (MCV)on 02-23-2022 MCV (RBC) [Entitic vol] 96.3 fL 80-94 [facility] Work Phone: Hematocrit Auto (Bld) [Volum e fraction]on 02-23-2022 Hematocrit (Bld) [Volume fraction] 44.8 % 40-54 [facility] Work Phone: Laboratory - Chemistry and C hemistry - challengeon 02-23-2022 CO2 [Moles/Vol] 30.0 mmol/L 21.0-32.0 [facility] Work Phone: Magnesium [Mass/Vol] 2.1 mg/dL 1.6-2.6 [facility] Work Phone: Natriuretic peptide B (Bld) [Mass/Vol] 22.3 pg/mL 0-100 [facility] Work Phone: Urea nitrogen/Creatinine [Mass ratio] 21.7 mg/mg 10-20 [facility] Work Phone: Laboratory - Hematology and Cell countson 02-23-2022 Erythrocyte distribution width (RBC) [Entitic vol] 49.1 fL 35.1-43.9 [facility] Work Phone: Erythrocyte distribution width (RBC) [Ratio] 13.8 % 11.6-14.6 [facility] Work Phone: Immature granulocytes/100 WBC (Bld) 1.100 % 0.0-0.9 [facility] Work Phone: Comment on above: IG% - Immature Granu locytes (promyelocytes, myelocytes and metamyelocytes) > 1% indicates that a LEFT SHIFT is Present. MCH (RBC) [Entitic mass] 31.2 pg 27.0-32.0 [facility] Work Phone: Nucleated RBC/100 WBC (Bld) [Ratio] 0 % 0-5 [facility] Work Phone: MCHC Auto (RBC) [Mass/Vol]on 02-23-2022 MCHC (RBC) [Mass/Vol] 32.4 g/dL 32-36 [facility] Work Phone: No Panel Informationon 02-23 Troponin I High Sensitivity 7 pg/mL 3.0-78.0 [facility] Work Phone: Comment on above: Please Note: New Jocelyn t Units and Gender Specific Reference Ranges. For more information see Policy Stat Procedure [place] High Sensitivity Troponin (TNIH) and attachments. Estimated Creatinine Clearance Calc 73.18 ml/min [facility] Work Phone: Estimated GFR (MDRD) Amer 91 mL/min >60 [facility] Work Phone: Comment on above: GFR Calc Estimated GFR (MDRD) Non-Af Amer 75 mL/min >60 [facility] Work Phone: Comment on above: Non- GFR Calc Platelets bldon 02-23-2022 Platelets (Bld) [#/Vol] 224 10*3/uL 150-450 [facility] Work Phone: Serum or plasma calcium quincy urement (mass/volume)on 02-23-2022 Calcium [Mass/Vol] 9.4 mg/dL 8.5-10.1 [facility] Work Phone: Serum or plasma creatinine m easurement (mass/volume)on 02-23-2022 Creatinine [Mass/Vol] 1.06 mg/dL 0.70-1.30 [facility] Work Phone: Comment on above: The validity of the calculated GFR & GFRAA in patients over 70 years has not been determined. Clinical correlation is essential. Serum or plasma urea nitroge n measurement (mass/volume)on 02-23-2022 Urea nitrogen [Mass/Vol] 23 mg/dL 11-28 [facility] Work Phone: Thin prep Papanicolaou smear with manual screeningon 02-23-2022 Thin prep Papanicolaou smear with manual screening 09-25 [facility] Work Phone: Hemoglobin A1con 06-01-2021 Glucose [Mass/Vol] 166 mg/dL Normal [facility] Comment on above: Performed By: #### P SATF, HBA1C #### [facility] Routine Lab [address] [address] HbA1c (Bld) [Mass fraction] 7.4 % High 4.3-5.6 [facility] Comment on above: Performed By: #### P SATF, HBA1C #### [facility] Routine Lab [address] [address] PSA, Freeon 06-01-2021 PSA, Diagnostic 3.13 ng/mL High <2.60 [facility] Comment on above: Performed By: #### P SATF, HBA1C #### [facility] Routine Lab [address] [place], [place] [address] PSA, Percent Free DO NOT OR 19 % Normal [facility] Comment on above: Performed By: #### P SATF, HBA1C #### [facility] Routine Lab [address] [id number] Hemoglobin A1con 03-28-2021 Glucose [Mass/Vol] 160 mg/dL Normal [facility] Reference [facility] Comment on above: Performed By: #### H BA1C #### [facility] Routine Lab [address], [place] [id number] HbA1c (Bld) [Mass fraction] 7.2 % High 4.3-5.6 [facility] Comment on above: Performed By: #### H BA1C #### [facility] Routine Lab [address] [place], [place] [address] B TestoSHBG,fem,chilon 10-24 Sex Hormon Bind Glb 22 nmol/L Normal 11-80 [facility] Testos Bioavail 84.1 ng/dL Low 130.0-680.0 [facility] Lab Testosterone [Mass/Vol] 143 ng/dL Low 300-720 [facility] Testosterone Free 29.5 pg/mL Low 47.0-244.0 [facility] Hemoglobin A1con 09-10-2020 Glucose [Mass/Vol] 157 mg/dL Normal [facility] Comment on above: Performed By: #### H BA1C #### [facility] Routine Lab [address], [place] [id number] HbA1c (Bld) [Mass fraction] 7.1 % High 4.3-5.6 [facility] Comment on above: Performed By: #### H BA1C #### [facility] Routine Lab [address], [place] [id number] Coronavirus 2019on 1 SARS-CoV-2 (COVID-19) RNA ARIEL+probe Ql (Unsp spec) Abnormal Negative for COVID19 (SARS CoV2) by PCR. [facility] Comment on above: Result Comment: Posi tive for This test was developed and its performance characteristics determined by [facility]. This test has been authorized by FDA under an Emergency Use Authorization (EUA). This test has been validated in accordance with the FDA's Guidance Document Policy for Diagnostics Testing in Laboratories Certified to Perform High Complexity Testing under CLIA prior to Emergency use Authorization for Coronavirus Disease 2019 during the Public Health Emergency issued on July 12, 2019. COVID19 (SARS This test was developed and its performance characteristics determined by [facility]'s [facility]. This test has been authorized by FDA under an Emergency Use Authorization (EUA). This test has been validated in accordance with the FDA's Guidance Document Policy for Diagnostics Testing in Laboratories Certified to Perform High Complexity Testing under CLIA prior to Emergency use Authorization for Coronavirus Disease 2019 during the Public Health Emergency issued on July 12, 2019. CoV2) by This test was developed and its performance characteristics determined by [facility]. This test has been authorized by FDA under an Emergency Use Authorization (EUA). This test has been validated in accordance with the FDA's Guidance Document Policy for Diagnostics Testing in Laboratories Certified to Perform High Complexity Testing under CLIA prior to Emergency use Authorization for Coronavirus Disease 2019 during the Public Health Emergency issued on July 12, 2019. PCR.(*) This test was developed and its performance characteristics determined by [facility]. This test has been authorized by FDA under an Emergency Use Authorization (EUA). This test has been validated in accordance with the FDA's Guidance Document Policy for Diagnostics Testing in Laboratories Certified to Perform High Complexity Testing under CLIA prior to Emergency use Authorization for Coronavirus Disease 2019 during the Public Health Emergency issued on July 12, 2019. SARS-CoV-2 (COVID-19) RNA ARIEL+probe Ql (Unsp spec) Normal [facility] Comment on above: Result Comment: Naso pharyngeal Corrected on 06/21 AT 2326: Previously reported as U Swab Corrected on 06/21 AT 2326: Previously reported as U Vital Signs Date Time Vital Sign Value Performing Clinician Faci lity 03-04-2025 08:45-0400 Body mass index (BMI) [Ratio] 45.8 kg/m2 Dr. Graham Priest MD Work Phone: [facility] 03-04-2025 08:45-0400 Body temperature 97.1 [degF] Dr. Graham Priest MD Work Phone: [facility] 03-04-2025 08:45-0400 Body weight 140.[address] Graham Priest MD Work Phone: [facility] 03-04-2025 08:45-0400 Diastolic blood pressure 58 mm[Hg] Dr. Graham Priest MD Work Phone: [facility] 03-04-2025 08:45-0400 Heart rate 73 /min Dr. Graham Priest MD Work Phone: [phone] [place] [address] 03-04-2025 08:45-0400 Inhaled oxygen flow rate 3 L/min Dr. Graham Priest MD Work Phone: [phone] [place] [address] 03-04-2025 08:45-0400 Respiratory rate 22 /min Dr. Graham Priest MD Work Phone: [phone] [place] [address] 03-04-2025 08:45-0400 SaO2% (BldA) [Mass fraction] 90 % Dr. Graham Priest MD Work Phone: [phone] [place] [address] 03-04-2025 08:45-0400 Systolic blood pressure 124 mm[Hg] Dr. Graham Priest MD Work Phone: [facility] 01-21-2025 06:09-0400 Body height 175.[address] Graham Priest MD Work Phone: [facility] 01-21-2025 06:09-0400 Body mass index (BMI) [Ratio] 45.1 kg/m2 Dr. Graham Priest MD Work Phone: [facility] 01-21-2025 06:09-0400 Body temperature 97.3 [degF] Dr. Graham Priest MD Work Phone: [phone] [place] [address] 01-21-2025 06:09-0400 Body weight 138.[address] Graham Priest MD Work Phone: [facility] 01-21-2025 06:09-0400 Diastolic blood pressure 79 mm[Hg] Dr. Graham Priest MD Work Phone: [facility] 01-21-2025 06:09-0400 Heart rate 68 /min Dr. Graham Priest MD Work Phone: [facility] 01-21-2025 06:09-0400 Inhaled oxygen flow rate 3 L/min Dr. Graham Priest MD Work Phone: [facility] 01-21-2025 06:09-0400 Respiratory rate 22 /min Dr. Graham Priest MD Work Phone: [facility] 01-21-2025 06:09-0400 SaO2% (BldA) [Mass fraction] 87 % Dr. Graham Priest MD Work Phone: [facility] 01-21-2025 06:09-0400 Systolic blood pressure 137 mm[Hg] Dr. Graham Priest MD Work Phone: [facility] 12-30-2024 12:52-0400 Body mass index (BMI) [Ratio] 45.19 kg/m2 Colleen Kvng PA-C Work Phone: [facility] 12-30-2024 12:52-0400 Body weight 138.8 kg Colleen Kvng PA-C Work Phone: [facility] 12-30-2024 12:52-0400 Diastolic blood pressure 61 mm[Hg] Colleen Kvng PA-C Work Phone: [facility] 12-30-2024 12:52-0400 Heart rate 64 /min Colleen Kvng PA-C Work Phone: [facility] 12-30-2024 12:52-0400 SaO2% (BldA) [Mass fraction] 93 % Colleen Kvng PA-C Work Phone: [facility] 12-30-2024 12:52-0400 Systolic blood pressure 116 mm[Hg] Colleen Kvng PA-C Work Phone: [facility] 10-30-2024 13:36-0400 Body height 175.3 cm Tiara Rodriguez MD Work Phone: [facility] 10-30-2024 13:36-0400 Body mass index (BMI) [Ratio] 39.78 kg/m2 Tiara Rodriguez MD Work Phone: [facility] 10-30-2024 13:36-0400 Body weight 122.2 kg Tiara Rodriguez MD Work Phone: [facility] 10-30-2024 13:36-0400 Diastolic blood pressure 70 mm[Hg] Tiara Rodriguez MD Work Phone: [facility] 10-30-2024 13:36-0400 Heart rate 57 /min Tiara Rodriguez MD Work Phone: [facility] 10-30-2024 13:36-0400 SaO2% (BldA) [Mass fraction] 90 % Tiara Rodriguez MD Work Phone: [facility] 10-30-2024 13:36-0400 Systolic blood pressure 134 mm[Hg] Tiara Rodriguez MD Work Phone: [facility] 10-22-2024 09:20-0400 Body height 175.[address] Graham Priest MD Work Phone: [facility] 10-22-2024 09:20-0400 Body mass index (BMI) [Ratio] 43.8 kg/m2 Dr. Graham Priest MD Work Phone: [facility] 10-22-2024 09:20-0400 Body weight 134.[address] Graham Priest MD Work Phone: [facility] 10-22-2024 09:20-0400 Diastolic blood pressure 73 mm[Hg] Dr. Graham Priest MD Work Phone: [facility] 10-22-2024 09:20-0400 Heart rate 67 /min Dr. Graham Priest MD Work Phone: [phone])[phone] [place] [address] 10-22-2024 09:20-0400 Inhaled oxygen flow rate 3 L/min Dr. Graham Priest MD Work Phone: [facility] 10-22-2024 09:20-0400 Respiratory rate 20 /min Dr. Graham Priest MD Work Phone: [phone] [place] [address] 10-22-2024 09:20-0400 SaO2% (BldA) [Mass fraction] 90 % Dr. Graham Priest MD Work Phone: [facility] 10-22-2024 09:20-0400 Systolic blood pressure 120 mm[Hg] Dr. Graham Priest MD Work Phone: 4([phone] [place] [address] 09-24-2024 06:32-0400 Body mass index (BMI) [Ratio] 43.2 kg/m2 Dr. Graham Priest MD Work Phone: [phone] [address] 09-24-2024 06:32-0400 Body temperature 97.5 [degF] Dr. Graham Priest MD Work Phone: 1([phone] [address] 09-24-2024 06:32-0400 Body weight 132.[address] Graham Priest MD Work Phone: [phone] [place] [address] 09-24-2024 06:32-0400 Diastolic blood pressure 72 mm[Hg] Dr. Graham Priest MD Work Phone: 0([phone] [place] [address] 09-24-2024 06:32-0400 Heart rate 80 /min Dr. Graham Priest MD Work Phone: [phone] [place] [address] 09-24-2024 06:32-0400 Respiratory rate 20 /min Dr. Graham Priest MD Work Phone: [phone] [place] [address] 09-24-2024 06:32-0400 SaO2% (BldA) [Mass fraction] 90 % Dr. Graham Priest MD Work Phone: 0(891)[phone] [place] [address] 09-24-2024 06:32-0400 Systolic blood pressure 130 mm[Hg] Dr. Graham Priest MD Work Phone: [facility] 09-04-2024 12:28-0400 Body height 175.[address] Graham Priest MD Work Phone: [facility] 09-04-2024 12:28-0400 Body weight 129.[address] Graham Priest MD Work Phone: [facility] 09-04-2024 12:28-0400 Heart rate 66 /min Dr. Graham Priest MD Work Phone: 1([phone] [place] [address] 09-04-2024 12:28-0400 Inhaled oxygen flow rate 3 L/min Dr. Graham Priest MD Work Phone: [facility] 09-04-2024 12:28-0400 SaO2% (BldA) [Mass fraction] 92 % Dr. Graham Priest MD Work Phone: [facility] 08-05-2024 07:37-0400 Body mass index (BMI) [Ratio] 41.3 kg/m2 Dr. Graham Priest MD Work Phone: [facility] 08-05-2024 07:37-0400 Body temperature 97.4 [degF] Dr. Graham Priest MD Work Phone: [facility] 08-05-2024 07:37-0400 Body weight [address] Graham Priest MD Work Phone: [facility] 08-05-2024 07:37-0400 Diastolic blood pressure 69 mm[Hg] Dr. Graham Priest MD Work Phone: [facility] 08-05-2024 07:37-0400 Heart rate 70 /min Dr. Graham Priest MD Work Phone: [facility] 08-05-2024 07:37-0400 Inhaled oxygen flow rate 3 L/min Dr. Graham Priest MD Work Phone: [facility] 08-05-2024 07:37-0400 Respiratory rate 22 /min Dr. Graham Priest MD Work Phone: [facility] 08-05-2024 07:37-0400 SaO2% (BldA) [Mass fraction] 93 % Dr. Graham Priest MD Work Phone: [facility] 08-05-2024 07:37-0400 Systolic blood pressure 109 mm[Hg] Dr. Graham Priest MD Work Phone: 4([phone])[phone] [place] [address] 06-13-2024 14:47-0500 Body mass index (BMI) [Ratio] 42.7 kg/m2 Dr. Graham Priest MD Work Phone: 1(903)600-683902 [place] [address] 06-13-2024 14:47-0500 Body weight 131.[address] Graham Priest MD Work Phone: 5(434)648-217165 [address] 06-13-2024 14:47-0500 Diastolic blood pressure 67 mm[Hg] Dr. Graham Priest MD Work Phone: 2(634)924-732530 [place] [address] 06-13-2024 14:47-0500 Heart rate 71 /min Dr. Graham Priest MD Work Phone: 1(933)588-198930 [place] [address] 06-13-2024 14:47-0500 Respiratory rate 20 /min Dr. Graham Priest MD Work Phone: 4(320)[phone] [place] [address] 06-13-2024 14:47-0500 SaO2% (BldA) [Mass fraction] 90 % Dr. Graham Priest MD Work Phone: [facility] 06-13-2024 14:47-0500 Systolic blood pressure 115 mm[Hg] Dr. Graham Priest MD Work Phone: [facility] 10-12-2022 09:08-0400 Body height 175.[address] Graham Priest Work Phone: 2(523)868-124430 [place] [address] 10-12-2022 09:08-0400 Body mass index (BMI) [Ratio] 41.8 kg/m2 Dr. Graham Priest Work Phone: [facility] 10-12-2022 09:08-0400 Body weight 128.[address] Graham Priest Work Phone: [facility] 10-12-2022 09:08-0400 Diastolic blood pressure 73 mm[Hg] Dr. Graham Priest Work Phone: [facility] 10-12-2022 09:08-0400 Heart rate 77 /min Dr. Graham Priest Work Phone: [facility] 10-12-2022 09:08-0400 Respiratory rate 16 /min Dr. Graham Priest Work Phone: [facility] 10-12-2022 09:08-0400 Systolic blood pressure 124 mm[Hg] Dr. Graham Priest Work Phone: [facility] 09-25-2022 01:00-0400 Diastolic blood pressure 64 mm[Hg] [facility] 09-25-2022 01:00-0400 Heart rate 64 /min [facility] 09-25-2022 01:00-0400 Inhaled oxygen flow rate 2 L/min [facility] 09-25-2022 01:00-0400 Respiratory rate 15 /min [facility] 09-25-2022 01:00-0400 SaO2% (BldA) [Mass fraction] 94 % [facility] 09-25-2022 01:00-0400 Systolic blood pressure 107 mm[Hg] [facility] 09-24-2022 22:07-0400 Body height 175.26 cm [facility] 09-24-2022 22:07-0400 Body mass index (BMI) [Ratio] 42 kg/m2 [facility] 09-24-2022 22:07-0400 Body temperature 98 [degF] [facility] 09-24-2022 22:07-0400 Body weight 129.1 kg [facility] 04-08-2022 20:41-0500 Heart rate 71 /min Dr. Graham Priest Work Phone: [facility] Work Phone: 04-08-2022 20:41-0500 SaO2% (BldA) [Mass fraction] 97 % Dr. Graham Priest Work Phone: [facility] Work Phone: 04-08-2022 19:23-0500 Diastolic blood pressure 69 mm[Hg] Dr. Graham Priest Work Phone: [facility] Work Phone: 04-08-2022 19:23-0500 Respiratory rate 10 /min Dr. Graham Priest Work Phone: [facility] Work Phone: 04-08-2022 19:23-0500 Systolic blood pressure 113 mm[Hg] Dr. Graham Priest Work Phone: [facility] Work Phone: 04-08-2022 16:10-0500 Body height 175.[address] Graham Priest Work Phone: [facility] Work Phone: 04-08-2022 16:10-0500 Body mass index (BMI) [Ratio] 42.1 kg/m2 Dr. Graham Priest Work Phone: [facility] Work Phone: 04-08-2022 16:10-0500 Body temperature 98.5 [degF] Dr. Graham Priest Work Phone: [facility] Work Phone: 04-08-2022 16:10-0500 Body weight 129.[address] Graham Priest Work Phone: [facility] Work Phone: 03-31-2022 10:29-0500 Body mass index (BMI) [Ratio] 40.6 kg/m2 Dr. Graham Priest Work Phone: [facility] Work Phone: 03-31-2022 10:29-0500 Body weight 124.[address] Graham Priest Work Phone: [facility] Work Phone: 03-31-2022 10:29-0500 Diastolic blood pressure 74 mm[Hg] Dr. Graham Priest Work Phone: [facility] Work Phone: 03-31-2022 10:29-0500 Heart rate 84 /min Dr. Graham Priest Work Phone: [facility] Work Phone: 03-31-2022 10:29-0500 Respiratory rate 18 /min Dr. Graham Priest Work Phone: [facility] Work Phone: 03-31-2022 10:29-0500 Systolic blood pressure 122 mm[Hg] Dr. Graham Priest Work Phone: [facility] Work Phone: 02-23-2022 08:47-0400 Diastolic blood pressure 76 mm[Hg] Dr. Graham Priest Work Phone: [facility] Work Phone: 02-23-2022 08:47-0400 Heart rate 68 /min Dr. Graham Priest Work Phone: [facility] Work Phone: 02-23-2022 08:47-0400 Respiratory rate 21 /min Dr. Graham Priest Work Phone: [facility] Work Phone: 02-23-2022 08:47-0400 SaO2% (BldA) [Mass fraction] 93 % Dr. Graham Priest Work Phone: [facility] Work Phone: 02-23-2022 08:47-0400 Systolic blood pressure 126 mm[Hg] Dr. Graham Priest Work Phone: [facility] Work Phone: 02-23-2022 05:17-0400 Body mass index (BMI) [Ratio] 39.7 kg/m2 Dr. Graham Priest Work Phone: [facility] Work Phone: 02-23-2022 05:17-0400 Body temperature 96.7 [degF] Dr. Graham Priest Work Phone: [facility] Work Phone: 02-23-2022 05:17-0400 Body weight 122.[address] Graham Priest Work Phone: [facility] Work Phone: 01-24-2022 08:29-0400 Body mass index (BMI) [Ratio] 40.3 kg/m2 Dr. Graham Priest Work Phone: [facility] Work Phone: 01-24-2022 08:29-0400 Body weight 123.[address] Graham Priest Work Phone: [facility] Work Phone: 01-24-2022 08:29-0400 Diastolic blood pressure 75 mm[Hg] Dr. Graham Priest Work Phone: [facility] Work Phone: 01-24-2022 08:29-0400 Heart rate 68 /min Dr. Graham Priest Work Phone: [facility] Work Phone: 01-24-2022 08:29-0400 Respiratory rate 18 /min Dr. Graham Priest Work Phone: [facility] Work Phone: 01-24-2022 08:29-0400 Systolic blood pressure 126 mm[Hg] Dr. Graham Priest Work Phone: [facility] Work Phone: Encounters Encounter Date Encounter Type Care Provider Facility Start: 03-30-2025 ambulatory Lynnette Navarroi ty:[facility] Start: 03-26-2025 ambulatory [facility] Facility :[facility] Start: 03-18-2025 End: 03-18-2025 ambulatory [facility] Facility:[facility] Start: 03-13-2025 ambulatory [facility] Facility :[facility] Start: 03-10-2025 ambulatory MARY LONDON [facility] Start: 03-04-2025 End: 03-04-2025 Patient encounter procedure ARMED GUARD yLnnette Avila [facility] Work Phone: Start: 03-04-2025 End: 03-04-2025 ambulatory Lynnette Avila Facility:[facility] Start: 02-25-2025 End: 02-25-2025 ambulatory TYRONE PALACIOS [facility] Start: 02-23-2025 End: 02-23[facility]: 02-23-[facility]25 End: 02-23-2025 Patient encounter procedure DARREN Avila -Cat Scan [facility] Work Phone: Start: 02-23-2025 End: 02-23-2025 ambulatory Lynnette Avila Facility:[facility] Start: 01-21-2025 End: 01-21-2025 Patient encounter procedure DARREN Avila -[facility] Work Phone: Start: 01-21-2025 End: 01-21-[address] Graham Priest MD Work Phone: [facility] Start: 01-05-2025 End: 01-07-2025 ambulatory JUNIORN JENNIFER Facility:[id number] Start: 01-02-2025 End: 01-02-2025 Telephone encounter Tiara Rodriguez MD Work Phone: [facility] Comment on above: Pre-procedure instru ctions for AF ablation Start: 01-02-2025 ambulatory ARMENIANJordenARMINDA RODRIGUEZ Facility:[id number] Start: 01-02-2025 End: 01-02-2025 Subsequent hospital visit by physician Nori [facility] 3 Work Phone: Radiology CT Scan Comment on above: Paroxysmal atrial fi brillation (HCC) [I48.0] Start: 12-30-2024 End: 12-30-2024 ambulatory JUNIORN JENNIFER Facility:[id number] Start: 12-30-2024 End: 12-30-2024 Patient encounter procedure Colleen Calderon PA-C Work Phone: [facility] EPS Comment on above: Paroxysmal atrial fi brillation (HCC) (Primary Dx); Obstructive sleep apnea syndrome; Obesity, Class III, BMI >= 40 Start: 12-30-2024 End: 12-30-2024 ambulatory COLLEEN CALDERON Facility:[id number] Start: 11-04-2024 End: 11-07-2024 Telephone encounter Tiara Rodriguez MD Work Phone: [facility] Comment on above: Patient Update Start: 10-30-2024 End: 10-30-2024 Patient encounter procedure Tiara Rodriguez MD Work Phone: [facility] EPS Comment on above: [facility] Paroxysmal atrial fibrillation (HCC); Current use of detention anticoagulation Start: 10-30-2024 End: 10-30-2024 ambulatory TIARA RODRIGUEZ Facility:[id number] Start: 10-29-2024 End: 10-29-2024 ambulatory VI LONDON [facility] Start: 10-23-2024 End: 10-23-2024 ambulatory VI LONDON [facility] Start: 10-22-2024 End: 10-22-2024 Patient encounter procedure Syl Armstrong Lea ARMED GUARD-C -[facility] Work Phone: Start: 10-22-2024 End: 10-22-[address] Graham Priest MD Work Phone: [facility] Work Phone: Start: 10-13-2024 End: 10-13-2024 ambulatory GRAHAM PRIEST [facility] Start: 09-24-2024 End: 09-24-2024 Patient encounter procedure DARREN Avila -[facility] Work Phone: Start: 09-24-2024 End: 09-24-[address] rGaham Priest MD Work Phone: [facility] Work Phone: Start: 09-18-2024 End: 09-18-2024 ambulatory VI LONDON [facility] Start: 09-05-2024 ambulatory Lynnette Avila Facili ty:[facility] Start: 09-05-2024 Non-patient / Non-visit Dr. George leonard DO -[facility] Start: 09-04-2024 End: 09-04-[address] Graham Priest MD Work Phone: [facility] Work Phone: Start: 09-04-2024 End: 09-04-2024 Patient encounter procedure DARREN Avila -Pulmonary Services/Neurology Work Phone: Start: 09-04-2024 End: 09-04-2024 ambulatory Lynnette Avila Facility:[facility] Start: 09-02-2024 End: 09-02-2024 Patient encounter procedure ARMED GUARD Lynnette Avila -Pulmonary Services/Neurology Work Phone: Start: 09-02-2024 End: 09-02-2024 ambulatory Lynnette Avila Facility:[facility] [facility] Start: 08-05-2024 End: 08-05-2024 Patient encounter procedure ARMED GUARD Lynnette Avila -[facility] Work Phone: Start: 08-05-2024 End: 08-05-2024 ambulatory Lynnette Avila Facility:[facility] Start: 07-25-2024 End: 08-12-2024 Telephone encounter Lena Somers MD Work Phone: [facility] Start: 07-23-2024 End: 07-24-2024 ambulatory MARIANA LONDON [facility] Start: 07-07-2024 End: 07-07-2024 ambulatory GRAHAM LONDON [facility] Start: 06-13-2024 End: 06-13-2024 Patient encounter procedure Syl Agarwal ARMED GUARD-C -[facility] Work Phone: Start: 06-13-2024 End: 06-13-2024 ambulatory Syl Agarwal ARMED GUARD Facility:[facility] Start: 05-27-2024 ambulatory Syl Agarwal ARMED GUARD Facility :[facility] Start: 05-27-2024 Non-patient / Non-[facility] Start: 05-27-2024 End: 05-27-2024 Patient encounter procedure Syl Agarwal ARMED GUARD-C -Cardiovascular Services Work Phone: Start: 05-27-2024 End: 05-27-2024 ambulatory Syl Agarwal ARMED GUARD Facility:[facility] Start: 05-09-2024 End: 05-09-2024 ambulatory GRAHAM LONDON [facility] Start: 04-25-2024 End: 04-25-2024 ambulatory Syl Agarwal ARMED GUARD Facility:[facility] Start: 04-21-2024 End: 04-21-2024 ambulatory GRAHAM LONDON [facility] Start: 04-21-2024 ambulatory Graham Priest Facility: [facility] Start: 04-21-2024 End: 04-21-2024 ambulatory Yenni Vail NP Facility:[facility] Start: 04-14-2024 ambulatory Aisha Vo [facility] Start: 04-14-2024 End: 04-16-2024 Evaluation and management of inpatient Aisha Vo Facility:[facility] Start: 03-27-2024 End: 03-27-2024 ambulatory Graham Priest Facility:[facility] Start: 03-27-2024 End: 03-27-2024 ambulatory Yenni Vail NP Facility:[facility] Start: 03-12-2024 Follow-up status Dr. Graham Rogers MD Work Phone: [facility] Start: 02-23-2024 Evaluation and manag ement of inpatient SONIA COMBS Facility:[id number] Start: 02-19-2024 End: 02-20-2024 Evaluation and management of inpatient KYUNG SAAVEDRA GO Facility:[id number] Start: 02-18-2024 Patient encounter status Dimple Somers MD Work Phone: [facility] Work Phone: Start: 01-21-2024 End: 01-21-2024 ambulatory NONE PHYSICIAN Facility:[facility] Start: 01-21-2024 End: 01-21-2024 Patient encounter procedure KYUNG STILES MD [facility] Start: 01-16-2024 ambulatory NONE PHYSICIAN Facility :[facility] Start: 12-21-2022 End: 12-21-[address] Graham Priest Work Phone: [facility] Work Phone: Start: 12-21-2022 End: 12-21-[address] Graham Priest Work Phone: [facility]-Laboratory Work Phone: Start: 10-12-2022 End: 10-12-[address] Graham Priest Work Phone: [facility] Work Phone: Start: 09-24-2022 End: 09-25-2022 Emergency department patient visit [facility]Emergency Department Start: 08-22-2022 End: 08-22-2022 [facility] Start: 04-21-2022 Non-patient / Non-visit Dr. Brent Priest Work Phone: [facility] Start: 04-21-2022 End: 04-21-[address] Graham Priest Work Phone: [facility] Work Phone: Start: 04-21-2022 End: 04-21-[address] Graham Priest Work Phone: [facility] Start: 04-08-2022 End: 04-08-2022 Emergency department patient visit Dr. Graham Priest Work Phone: [facility]-Emergency Department Start: 03-31-2022 End: 03-31-[address] Graham Priest Work Phone: [facility] Start: 02-23-2022 End: 02-23-2022 Emergency department patient visit Dr. Graham Priest Work Phone: [facility]-Emergency Department Start: 01-24-2022 End: 01-24-[address] Graham Priest Work Phone: [facility] Procedures Date Procedure Procedure Detail Performing Clinician Start: 02-23-[address] Graham Priest MD Work Phone: Start: 01-05-2025 Antibody screen KYUNG BARTLETT Comment on above: Order Comment: Speci men Type: BLOOD SPECIMEN Ordering Facility: [facility] Address: [address] [place] [address] Performed By: #### 5 [id number] #### [facility] CLIA [id number] [address] [place] [id number] [place] [address] OF DAMIAN Start: 01-02-2025 Ct heart contrast ev al cardiac structure&morph Tiara Rodriguez MD Work Phone: Start: 05-27-2024 Cardiovascular stres s test using pharmacologic stress agent Dr. Graham Priest MD Work Phone: Start: 04-21-2024 PSA screening TYRONE EDMOND Comment on above: Performed By: #### [id number] #### [facility],[address] [place] [address] Start: 02-19-2024 Antibody screen KYUNG Mary BARTLETT Comment on above: Order Comment: Speci men Type: BLOOD SPECIMEN Ordering Facility: [facility] Address: [address] [place] [address] Performed By: #### L [id number], TSCR #### [facility] CLIA [id number] [address] [place], [place] [id number] [place] [address] Start: 09-24-2022 Plain chest X-ray Start: 04-08-2022 Plain chest X-ray Dr. Mary Priest Work Phone: Start: 02-23-2022 Plain chest X-ray Dr. Mary Priest Work Phone: Plan of Treatment Date Care Activity Detail Author Start: 10-13-2029 Prostate specific an tigen measurement Prostate Cancer Screening Discussion [facility] Start: 08-27-2027 Prostate specific an tigen measurement Prostate Cancer Screening Discussion [facility] Start: 02-25-2027 Diabetes Screening Diabetes Screenin g [facility] Start: 05-21-2025 End: 05-21-2025 Patient encounter procedure 05/21/2025 1:30 PM EST Office Visit [facility] EPS [address] [place] [address] Tiara Rodriguez MD [address] [place] [address] 6 month rov. [facility] EPS Comment on above: 6 month [facility]v. [facility] Start: 04-07-2025 Screening for malign ant neoplasm of colon [facility] Start: 03-30-2025 [facility] Start: 03-18-2025 End: 03-18-2025 Patient encounter procedure Departed Clinical -Cardiovascular Services Work Phone: Start: 03-13-2025 Patient encounter procedure Registered Clinical -Laboratory Work Phone: Start: 01-12-2025 Influenza vaccination [facility] Start: 01-05-2025 End: 01-05-2025 Admission to same day surgery center 01/05/2025 8:00 AM EDT - 01/05/2025 11:00 AM EDT Surgery [facility] [address] [place] [address] Tiara Rodriguez MD [address] [place] [address] ADD'L PVI ABLATION [facility] Comment on above: ADD'L PVI ABLATION Start: 01-05-2025 Subsequent hospital visit by physician 01/05/2025 8:00 AM EDT Hospital Encounter [place] [id number] [place] [address] Tiara Rodriguez MD [address] [place] [address] Paroxysmal atrial fibrillation (HCC) [I48.0] [facility] Comment on above: Paroxysmal atrial fi brillation (HCC) [I48.0] Start: 12-08-2024 End: 12-08-2024 ambulatory 12/08/2024 9:00 AM EDT Results Only [facility] [address] [facility] [place] [address] [facility] Start: 12-07-2024 End: 03-08-2025 Creatinine and Glomerular filtration rate.predicted panel - Serum, Plasma or Blood CREATININE BLD Lab Routine Paroxysmal atrial fibrillation (HCC) Expected: 12/07/2024 (Approximate), Expires: 03/08/2025 [facility] Comment on above: Expected: 12/07/2024 (Approximate), Expires: 03/08/2025 Start: 10-30-2024 End: 10-30-2024 Patient encounter procedure 10/30/2024 2:00 PM EDT Office Visit [facility] [address] [place] [address] Tiara Rodriguez MD [address] [place] [address] New patient [facility] Comment on above: New patient Start: 01-13-2024 Covid-19 Vaccine ( season) Covid-19 Vaccine ( season) [facility] Start: 01-13-2024 Influenza vaccination Influenza Vacc ine (#1) [facility] Start: 12-10-2023 Patient referral [facility] Work Phone: Start: 09-24-2022 [facility] Start: 04-08-2022 [facility] Work Phone: Start: 2020 RSV Vaccine (1 - Ris k 60-74 years 1-dose series) RSV Vaccine (1 - Risk 60-74 years 1-dose series) [facility] Start: 2010 Pneumococcal Vaccine : 50+ (1 of 1 - PCV) Pneumococcal Vaccine: 50+ (1 of 1 - PCV) [facility] Start: 2010 Shingrix Vaccine (1 of 2) Ambrose grix Vaccine (1 of 2) [facility] Start: 2005 Screening for malign ant neoplasm of colon [facility] Start: 1995 Lipid panel Lipid Screening [facility] Start: 1979 Pneumococcal Vaccine : 50+ (1 of 2 - PCV) Pneumococcal Vaccine: 50+ (1 of 2 - PCV) [facility] Start: 1979 Urine microalbumin profile DTaP,Tdap,Td Vaccine (1 - Tdap) [facility] Start: 1978 Anxiety Screening Anxiety Screening [facility] Start: 1978 Depression Screening Depression Scre ening [facility] Start: 1978 Hepatitis C screening Hepatitis C Sc reening [facility] Start: 1978 HIV screening HIV Screening [facility] CT Chest [facility] CT Chest [facility] End: 12-07-2025 CTA Pulmonary veins W contrast IV CT PULMONARY VEIN W IVCON Radiology Routine Paroxysmal atrial fibrillation (HCC) 1 Occurrences starting 11/07/2024 until 12/07/2025 [facility] Work Phone: Comment on above: 1 Occurrences starti ng 11/07/2024 until 12/07/2025 ECG B/O W INTERP (ME D OFFICE) ECG B/O W INTERP (MED OFFICE) ECG Routine Paroxysmal atrial fibrillation (HCC) Current use of detention anticoagulation Ordered: 10/30/2024 [facility] Work Phone: Comment on above: Ordered: 10/30/2024 Patient Education [facility] Work Phone: Patient referral [facility] Work Phone: Percutaneous translu jose ablation of atrioventricular node ADD'L PVI ABLATION Paroxysmal atrial fibrillation (HCC) MR EP Lab US Heart [facility] Work Phone: Immunizations Immunization Date Immunization Notes Care Provider [facility] 05-09-2021 COVID-19 original vaccine, full dose, monovalent (MODERNA) Tiara Rodriguez MD Work Phone: [facility] Work Phone: 04-10-2021 COVID-19 original vaccine, full dose, monovalent (MODERNA) Tiara oRdriguez MD Work Phone: [facility] 04-01-2021 influenza, injectabl e, quadrivalent, contains preservative Tiara Rodriguez MD Work Phone: [facility] 04-01-2021 influenza virus vaccine, unspecified formulation Lena Somers MD Work Phone: [facility] 04-02-2020 Influenza, injectabl e, Madin Amee Canine Kidney, preservative free, quadrivalent Tiara Rodriguez MD Work Phone: [facility] Payers Date Payer Category Payer Medicaid [id number] 2024 Medicaid [id number] 2024 Self-pay [id number] 2022 Blue Cross Blue Shield BLUE ACCE SS PPO [id number] 2022 Unknown [id number] 1960 Unknown [id number] 2.16840.1.096351.3.579.2. 627 1960 Unknown [id number] 2.840.1.366216.3.579.2. 627 1960 Unknown [id number] 2.840.1.435964.3.579.2. 651 1960 Unknown [id number] 2.16.840.1.712329.3.579.2. 651 1960 Unknown [id number] 2.16.840.1.913220.3.579.2. 651 1960 Unknown [id number] 2.16.840.1.450785.3.579.2. 651 1960 Unknown [id number] 2.16.840.1.144582.3.579.2. 651 1960 Unknown [id number] 2.16.840.1.651349.3.579.2. 651 1960 Unknown [id number] 2.16.840.1.282871.3.579.2. 651 1960 Unknown [id number] 2.16.840.1.505103.3.579.2. 651 1960 Unknown [id number] 2.16.840.1.223836.3.579.2. 651 1960 Unknown [id number] 2..840.1.047013.3.579.2. 651 1960 Unknown [id number] 2.840.1.657414.3.579.2. 65 Private Health Insurance 2 [id number] Unknown ANTHEM [id number] Unknown [id number] 2.840.1.648283.3.579.2. 462 Unknown [id number] 2.840.1.852577.3.579.2. 462 Unknown [id number] 2.840.1.015636.3.579.2. 462 Unknown [id number] 2.840.1.133068.3.579.2. 462 Unknown [id number] 2.840.1.246824.3.579.2. 462 Unknown [id number] 2.840.1.879292.3.579.2. 462 Unknown [id number] 2.840.1.818503.3.579.2. 462 Unknown [id number] 2.840.1.856879.3.579.2. 462 Unknown [id number] 2.840.1.025247.3.579.2. 462 Unknown [id number] 2.840.1.136197.3.579.2. 462 Unknown [id number] 2.16.840.1.627404.3.579.2. 462 Unknown [id number] 2.16.840.1.520774.3.579.2. 462 Unknown [id number] 2.16.840.1.135154.3.579.2. 462 Unknown [id number] 2.16.840.1.537198.3.579.2. 462 Unknown [id number] 2.16.840.1.426044.3.579.2. 462 Unknown [id number] Unknown [id number] 462 Unknown [id number]. 462 Unknown [id number]. 462 Unknown [id number]. 462 Unknown [id number] [id number]. 462 Unknown [id number] [id number]. 462 Unknown [id number]. 462 Unknown [id number]. 462 Unknown [id number]. 462 Unknown [id number]. 462 Social History Date Type Detail Facility Start: 04-08-2022 End: 10-12-2022 Tobacco smoking status NHIS Unknown if ever smoked [facility] Start: 09-23-2018 Occasional [facility] Start: 09-23-2018 None [facility] Start: 09-23-2018 Spouse/ Signif icant Other [facility] Start: 09-26-2018 Cigarettes [facility] Start: 1960 Sex Assigned At Male W [facility] Tobacco smoking status No Smokin g Status Entered [facility] Start: 02-18-2024 Tobacco smoking stat us HIIS Smokes tobacco daily [facility] Start: 05-14-1988 History of tobacco use Cigarette Smo ker [facility] Start: 02-18-2024 End: 10-30-2024 Cigarettes smoked current (pack per day) - Reported 0.5 [facility] History of tobacco use Passive smoker [facility] Start: 02-18-2024 End: 10-30-2024 Tobacco use and exposure Smokeless tobacco non-user [facility] Start: 02-19-2024 End: 01-01-2025 Alcoholic beverage intake Current drinker of alcohol (finding) [facility] Start: 02-19-2024 End: 10-30-2024 Tobacco use panel [facility] Start: 02-18-2024 Tobacco Comment STARTED SMOKIN G TEENS ,QUIT SMOKING 2019 - 1.5 PACK A DAY [facility] Start: 02-18-2024 Alcohol Comment few beers daily-4 Cl [facility] Start: 1960 Sex assigned at Not on file C [facility] Start: 08-05-2024 End: 10-22-2024 Tobacco smoking status NHIS Ex-smoker (finding) [facility] Start: 09-09-2024 Sex Male (finding) [facility] Start: 05-14-1988 History of tobacco use Current smoke r [facility] Start: 04-14-2012 National Score (1-10 0), lower number is lower risk 33 [facility] How often to you hav e a drink containing alcohol? 4 or more times a week [facility] How many standard drinks containing alcohol do you have on a typical day? 5 or 6 [facility] How often do you hav e 6 or more drinks on 1 occasion? Daily or almost daily [facility] Medical Equipment Procedure Code Equipment Code Equipment Origin al Text Equipment Identifier Dates Graft Excluder 1 6mm 13.5-14.5mm Rougon-Doc Nitinol Fep 11.5cm Endovascular - [id number] Start: 02-19-2024 Stent Endovascul ar Odw8.5mm 14.5mm Sterile - [id number] Start: 02-19-2024 Graft Excluder 2 0mm 16.5-18.5mm Rougon-Doc Nitinol Fep 13.5cm Endovascular - [id number] Start: 02-19-2024 Blood Sugar Diag nostic (Accu-Chek Guide Test Strips) strip Start: 11-28-2023 Lancets (Accu-Ch ek Softclix Lancets) misc Start: 11-28-2023 Blood Sugar Diag nostic (Accu-Chek Guide Test Strips) strip Start: 11-28-2023 Lancets (Accu-Ch ek Softclix Lancets) misc Start: 11-28-2023 Blood Sugar Diag nostic (Accu-Chek Guide Test Strips) strip Start: 11-28-2023 Lancets (Accu-Ch ek Softclix Lancets) misc Start: 11-28-2023 Blood Sugar Diag nostic (Accu-Chek Guide Test Strips) strip Start: 11-28-2023 Lancets (Accu-Ch ek Softclix Lancets) misc Start: 11-28-2023 Blood Sugar Diag nostic (Accu-Chek Guide Test Strips) strip Start: 11-28-2023 Lancets (Accu-Ch ek Softclix Lancets) misc Start: 11-28-2023 Goals Date Patient Goal Desired Activity /State Personal health goal Personal health goal Functional Status Date Assessment Result Facility 01-01-2025 Total score [AUDIT-C] 025 3:45 PM Christi Wong RN [facility] 02-26-2024 Are you deaf, or do you have serious difficulty hearing No 02/26/2024 10:07 AM Reentta Mendoza, NGUYEN No [facility] 02-26-2024 Are you blind, or do you have serious difficulty seeing, even when wearing glasses No 02/26/2024 10:07 AM Renetta Mendoza, NGUYEN No [facility] 02-26-2024 Do you have serious difficulty walking or climbing stairs No 02/26/2024 10:07 AM Renetta Mendoza RN No [facility] 02-26-2024 Do you have difficul ty dressing or bathing No 02/26/2024 10:07 AM Renetta Mendoza, NGUYEN No [facility] 02-26-2024 Because of a physica l, mental, or emotional condition, do you have difficulty doing errands alone such as visiting a physician's office or shopping No 02/26/2024 10:07 AM Renetta Mendoza, NGUYEN No [facility] Mental Status Date Assessment Result Facility 02-26-2024 Because of a physica l, mental, or emotional condition, do you have serious difficulty concentrating, remembering, or making decisions No 02/26/2024 10:07 AM Renetta Mendoza RN No [facility] 09-24-2022 Cognitive function Voice/Name [facility] Work Phone: 04-08-2022 Cognitive function Voice/Name [facility] Work Phone: 02-23-2022 Cognitive function Level Of Cons ciousness Awake;Alert;Appropriate;Fol lows Commands [facility] Work Phone: Clinical Notes 09-24-2018 to 03-04-2025 Note Date & Type Note Facility 03-04-2025 Progress note [facility] 01-21-2025 Evaluation note Diagnosis Onset Date Resolution Smoking greater than 40 pack years acute January 21, 2025 9:07am COPD (chronic obstructive pulmonary disease) chronic January 21, 2025 9:07am Obstructive sleep apnea chronic S eptember 2024 9:07am PAF (paroxysmal atrial fibrillation) chronic January 21, 2025 9:07am Smoking greater than 40 pack years acute March 04 10:37am COPD (chronic obstructive pulmonary disease) chronic March 04 10:37am Obstructive sleep apnea chronic O ctober 2024 10:37am PAF (paroxysmal atrial fibrillation) chronic March 04 10:37am [facility] Work Phone: 1(737) 680-613408-26-2025 NoteHNO ID: [id number] Author: LINDA NEUMANN APRN.CNP Service: Cardiovascular Medicine Author Type: Nurse Practitioner Type: Plan of Care Filed: 01/06/2025 15:47 Note Text: Patient is requiring high levels of oxygen. He has chronic COPD but is noncompliant with oxygen at home. We will consult pulmonary. Plan for discharge tomorrow pending their evaluation.[facility]08-26-2025 Note HNO ID: [id number] Author: ANITA SHETH LSW Service: Care Management Author Type: Tool Mechanic Type: Care Mgt Progress Note Filed: 01/06/2025 15:55 Note Text: CARE MANAGEMENT PROGRESS NOTE SERVICE DATE: 01/06/2025 SERVICE TIME: 1:49 PM LOS: 0 days [place] of Choice Given: Yes Level of Care Discussed: Other: See Comment Financial Disclosure Provided: Yes Financial Disclosure Comments: joint [facility] [employer] Provider List: DME Provider list within the patient's requested geographic area shared with the patient/family: Yes within: 20 miles of zip code: [address] Pt agreeable to using [employer] for his oxygen needs. SW emailed Md[employer] form signed by ELI and appropriate documentation for order to hospital sales representative jewelry. Await approval from [employer], concentrator to be delivered to home and tank to room. Pt is discharging home today with self care and his as medically cleared by the physician team. No further inpatient CM needs at this time. Addendum - Frederic delivered tank to pt's room and delivered the concentrator to the patient's home 3:45PM as discharge was anticipated today. DC is being held by EP d/t the high O2 needs required, and they are ordering a pulm consult. Planning dc for tomorrow instead SIGNATURE: VIVIANE Jarvis PATIENT NAME: Bravo Fredeman DATE: January 06, 2025 TIME: 1:49 [facility] NoteHNO ID: [id number] Author: ANITA SHETH LSW Service: Care Management Author Type: Tool Mechanic Type: Care Mgt Progress Note Filed: 01/07/2025 08:57 Note Text: CARE MANAGEMENT PROGRESS NOTE SERVICE DATE: 01/06/2025 SERVICE TIME: 11:05 AM LOS: 0 days Patient in CVU for monitoring following ambulatory surgery, AF ablation with Dr Rodriguez -pt likely to dc home today following desat study as he is currently on 4L at rest and normally wears none at home except when ambulating long distances in the community, sometimes uses at night. Current O2 home provider is Chris, pt rented to own his equipment and now has [employer] which with cover the cost. Pt is from home with his , uses no AD and stating no DME is required. Pt +PCP who he sees annually and prn. Reports affordable RX/medical coverage with [employer]. RT desat study indication pt needs continuous > 6L with ambulation. Pt thinks the concentrator he owns only goes to 3L but is unsure. SW called and left message for Droothy at [facility] inquiring what equipment upgrades this patient may need at home. Await call back, asked [employer] for orders and an updated progress note. Pt will have ride home with his . CM following SIGNATURE: VIVIANE Jarvis PATIENT NAME: Bravo Freedman DATE: January 06, 2025 TIME: 11:05 [facility]08-25-2025 NoteHNO ID: [id number] Author: TIARA RODRIGUEZ MD Service: Cardiovascular Medicine Author Type: Physician Type: Procedures Filed: 01/05/2025 10:43 Note Text: BRIEF PROCEDURE NOTE: LOG ID: [id number] SURGERY/PROCEDURE DATE: 01/05/2025 INCISION/PROCEDURE START TIME: 9:01 AM INCISION CLOSE/PROCEDURE END TIME: 10:37 AM SURGEON(S)/PROCEDURALIST(S) AND DRAWER UPFITTER(S): Surgeons and Role: * Tiara Rodriguez MD - Primary No Additional Staff Procedure: AF ablation Outcome: success Access: 2 LFV 1 RFV ultrasound guided Closed with vascades for LFV and perclose for RFV Procedural findings AND Complications: nil acute Estimated Blood loss: 30cc's Specimen(s) removed: None Postoperative Diagnosis: success Plan: - Bedrest for 4 hours - Apixaban to be given in PACU - No changes to outpatient medications upon discharge - ECG, telemetry, CCU Full report to follow in [facility] (Under Chart Review -> Cardiac) Tiara Rodriguez, MBChB, FRACP, FHRS, FACC Staff Director Epidemiology, Cardiac Electrophysiology and Pacing Section Department of Cardiovascular Medicine Heart, Vascular and Thoracic [facility]08-25-2025 NoteHNO ID: [id number] Author: MOLLY GOMZE APRN.PROMOTIONS EXECUTIVE Service: Anesthesiology Author Type: Nurse Cofounder Type: Anesthesia Procedure Notes Filed: 01/05/2025 08:44 Note Text: ANESTHESIOLOGY PROCEDURE NOTE Airway General Information Procedure Start Time/Medication Administration: 01/05/2025 8:27 AM Procedure End Time: 01/05/2025 8:27 AM Patient location during procedure: OR Timeout Performed Pre-procedure: timeout performed Consent Obtained: Yes Patient identity confirmed: arm band Staffing Anesthesiologist: Aditya Frias DO PROMOTIONS EXECUTIVE: Molly Gomez APRN.PROMOTIONS EXECUTIVE Performed by: anesthesiologist Indications and Patient Condition Indications for airway management: anesthesia Preoxygenated: yes anesthesia circuit Patient position: sniffing Method: asleep Cricoid Pressure: Yes Manual In-Line Stabilization: No Difficult Mask: No Final Airway Details Final airway type: endotracheal airwayFinal Endotracheal Airway: ETT Cuffed: yes Successful intubation technique: direct laryngoscopy Devices used: Glidescope Endotracheal tube insertion site: oral Blade: Fely Blade size: #3 ETT size (mm): 8.0 Measured from: lips Measurement (cm): 24 Placement verified by: chest auscultation and capnometry Cormack-Lehane Classification: grade I - full view of glottis Number of attempts at approach: 1 Ventilation between attempts: BVM Failed airway: no Unrecognized esophageal intubation: no Difficult airway Comments Very large tongue SIGNATURE: Molly Gomez APRN.PROMOTIONS EXECUTIVE PATIENT NAME: Bravo Freedman DATE: January 05, 2025 TIME: 8:42 AM CSN: [id number]25 NoteHNO ID: [id number] Author: SANDY PARDO RN Service: ? Author Type: Registered Nurse Type: Progress Notes Filed: 01/02/2025 14:01 Note Text: MEDICATION INSTRUCTIONS PRIOR TO SURGERY Please read below carefully for your personalized instructions. Medications: If you are on blood thinner or anticoagulants including aspirin, please confirm with your surgical team on when to stop these medications. Unless instructed differently by your surgical team, stay on all of your medications until your surgery. Pre Surgery Med Instructions Medication instructions albuterol HFA (PROVENTIL HFA, VENTOLIN HFA) 90 mcg/actuation inhaler Use day of surgery. alfuzosin SR (UROXATRAL) 10 mg 24 hr tablet If you normally take this medication in the morning, it is ok to take the morning of surgery with a sip of water. amLODIPine (NORVASC) 10 mg tablet If you normally take this medication in the morning, it is ok to take the morning of surgery with a sip of water. ascorbic acid, vitamin C, (VITAMIN C) 500 mg tablet DO NOT TAKE THE MORNING OF SURGERY. aspirin, enteric coated (ASPIRIN, ENTERIC COATED) 81 mg EC tablet Follow surgeon's instructions. atorvastatin (LIPITOR) 80 mg tablet If you normally take this medication in the morning, it is ok to take the morning of surgery with a sip of water. Cholecalciferol, Vitamin D3, 125 mcg (5,000 unit) cap DO NOT TAKE THE MORNING OF SURGERY. Coenzyme Q10 (CO Q-10) 200 mg cap DO NOT TAKE THE MORNING OF SURGERY. ELIQUIS 5 mg tab(s) Follow surgeon's instructions. fluticasone-salmeterol (ADVAIR) 500-50 mcg/dose dsdv Use day of surgery. furosemide (LASIX) 20 mg tablet DO NOT TAKE THE MORNING OF SURGERY. isosorbide mononitrate ER (IMDUR) 30 mg 24 hr tablet If you normally take this medication in the morning, it is ok to take the morning of surgery with a sip of water. losartan (COZAAR) 25 mg tablet DO NOT TAKE THE MORNING OF SURGERY. Magnesium 250 mg tab DO NOT TAKE THE MORNING OF SURGERY. metoprolol tartrate, short acting, (LOPRESSOR) 50 mg tablet Follow surgeon's instructions. omega-3s/dha/epa/fish oil/D3 (VITAMIN-D + OMEGA-3 ORAL) DO NOT TAKE THE MORNING OF SURGERY. OXYGEN, HOME THERAPY, Continue as prescribed. pantoprazole DR (PROTONIX) 40 mg tablet If you normally take this medication in the morning, it is ok to take the morning of surgery with a sip of water. pyridoxine, vitamin B6, (VITAMIN B-6) 100 mg tablet DO NOT TAKE THE MORNING OF SURGERY. sertraline (ZOLOFT) 50 mg tablet If you normally take this medication in the morning, it is ok to take the morning of surgery with a sip of water. SPIRIVA RESPIMAT 2.5 mcg/actuation inhaler Use day of surgery. TRULICITY 0.75 mg/0.5 mL pen injector May resume after surgery - Accucheck day of surgery. - No oral diabetic medication the morning of surgery. - If you take one of the following weekly injectable medications, skip your dose the week before surgery: tirzepatide, semaglutide, dulaglutide, liraglutide, exentatide If you have any medication changes between receiving these instructions and your surgery date, please provide this updated information with the nurse who calls you the week day prior to your surgical procedure so we can update your list and provide you with updated instructions for the morning of your procedure. PRE-PROCEDURE INSTRUCTIONS TO PREPARE FOR YOUR PROCEDURE: Your arrival time for your procedure is 0630. Do NOT eat any solid foods after MIDNIGHT the night prior to your procedure - this includes gum or mints. You can drink clear liquids* up until 0430 , which is 2 hours before your arrival time. *Clear liquids = water, carbohydrate drink (sports drink that is clear or yellow in color), Ensure Pre-Surgery (given by JOSE L or your ), fruit juice without pulp (apple/cranberry), clear tea, black coffee (no cream). NO CARBONATED BEVERAGES AND NO ALCOHOL. Shower the morning of the procedure, put on clean clothes, and have clean sheets for your bed to help prevent infection after your procedure. Leave all valuables such as jewelry including rings, piercings, wallets, and purses at home. Wear comfortable, loose-fitting clothing. If you wear glasses or contacts, please bring a case. SPECIAL INSTRUCTIONS: If instructed, bring your first voided urine specimen with you. If you were provided skin preparation to use prior to your procedure, complete this as directed. If you use crutches or a walker, bring them with you. If you have a home CPAP/BIPAP machine, bring it with you. If you were instructed to complete a fleets enema or bowel prep, complete as directed. Bring copy of Living Will/Power of Community Health Promoter. Do not smoke or chew. If you use tobacco, quit or at least cut down before surgery. Do not smoke or chew after midnight the day before your surgery. This effects bleeding, infection, healing, and so much more. Do not take any Diet or Herbal Supplements 2 weeks (more content not included)...[facility]08-22-2025 Telephone encounter Note* Telephone Encounter - Chepe Alan RN - 01/02/2025 2:00 PM EDTSummarelizabeth: Pre-procedure instructions for AF ablation Pre-procedure instructions for AF ablation scheduled to be performed on Sunday02/05/2025 reviewed with pt's , Steph, at this time. She was instructed that Guillermo should be NPO except for medications after midnight on the morning of the procedure. She was instructed that he should hold his Eliquis and Furosemide on the morning of the surgery. He may continue to take his aspirin as prescribed.She was encouraged to call back with any questions or concerns. She verbalized understanding of instructions and provided positive feedback for the call. Chepe Alan RN January 02, 2025 2:01 PM [facility]08-22-2025 Miscellaneous Notes* Telephone Encounter - Chepe Alan RN - 01/02/2025 2:00 PM EDTSumeloina: Pre-procedure instructions for AF ablation Pre-procedure instructions for AF ablation scheduled to be performed on Sunday02/05/2025 reviewed with pt's , Steph, at this time. She was instructed that Guillermo should be NPO except for medications after midnight on the morning of the procedure. She was instructed that he should hold his Eliquis and Furosemide on the morning of the surgery. He may continue to take his aspirin as prescribed.She was encouraged to call back with any questions or concerns. She verbalized understanding of instructions and provided positive feedback for the call. Chepe Alan RN January 02, 2025 2:01 PM documented in [facility] encounterGood [facility]08-[facility]25 History of Present illness Narrative* Farheen Aj Sarah, RT(R) - 01/02/2025 9:00 AM EDTSummary: CT Radiology Service Progress Note DATE OF SERVICE: January 02, 2025 TIME: 9:31 AM PATIENT IDENTITY VERIFICATION COMPLETED USING TWO (2) STANDARD IDENTIFIERS: Name and Date of confirmed by patient verbally. FALL SCREENING: Has the patient had 2 falls in the last year or 1 fall with injury or currently using an Ambulatory Assistive Device (Walker, Cane, Wheelchair, Crutches, etc.)? No PATIENT GENDER DATA: Assigned male at PATIENT RELEVANT IMPLANT DATA REVIEWED: Not Applicable PATIENT PRESENTS WITH AN IMPLANTABLE OR ATTACHED CEO AND CO FOUNDER: No ALLERGIES: Reviewed and unchanged CONTRAST ALLERGY: NO. EXAM: CT -CONTRAST INDUCED NEPHROPATHY RISK FACTORS: Patient age > 60 years CREATININE: Creatinine Date Value Ref Range Status 12/30/2024 1.40 0.50 - 1.40 mg/dL Final Comment: Patients receiving either N-Acetylcysteine (NAC) or Metamizole prior to venipuncture, may have falsely depressed results. 02/26/2024 1.14 0.50 - 1.40 mg/dL Final Comment: Patients receiving either N-Acetylcysteine (NAC) or Metamizole prior to venipuncture, may have falsely depressed results. 02/24/2024 1.34 0.50 - 1.40 mg/dL Final Comment: Patients receiving either N-Acetylcysteine (NAC) or Metamizole prior to venipuncture, may have falsely depressed results. Estimated Glomerular Filtration Rate Date Value Ref Range Status 12/30/2024 56 (L) >=60 mL/min/1.73m Final Comment: Estimated Glomerular Filtration Rate (eGFR) is calculated using the 2020 CKD-EPI creatinine equation. This equation utilizes serum creatinine, sex, and age as parameters. The creatinine assay has traceable calibration to isotope dilution- mass spectrometry. Refer to KDIGO guidelines for clinical interpretation. In patients with unstable renal function, e.g. those with acute kidney injury, the eGFRmay not accurately reflect actual GFR. eGFR- Date Value Ref Range Status 08/17/2015 >60 Final P.O.C.T. RESULTS: POC done: Yes, See Lab Tab January 02, 2025 TREATMENT: N/A PERIPHERAL IV DATA: Ambulatory: A peripheral IV was started in the Left antecubital site with a Angio cath: 20 gauge. RADIOLOGY DEPARTMENT: CT; Exam(s) Completed: PVI SIGNATURE: CULLEN Roque) PATIENT NAME: Bravo Freedman DATE: January 02, 2025 TIME: 9:31 AM documented in this encounterGood [facility]08-22-2025 NoteHNO ID: [id number] Author: FARHEEN AJ RT (R) Service: Radiology Author Type: Technologist Type: Progress Notes Filed: 01/02/2025 09:31 Note Text: Summary: CT Radiology Service Progress Note DATE OF SERVICE: January 02, 2025 TIME: 9:31 AM PATIENT IDENTITY VERIFICATION COMPLETED USING TWO (2) STANDARD IDENTIFIERS: Name and Date of confirmed by patient verbally. FALL SCREENING: Has the patient had 2 falls in the last year or 1 fall with injury or currently using an Ambulatory Assistive Device (Walker, Cane, Wheelchair, Crutches, etc.)? No PATIENT GENDER DATA: Assigned male at PATIENT RELEVANT IMPLANT DATA REVIEWED: Not Applicable PATIENT PRESENTS WITH AN IMPLANTABLE OR ATTACHED CEO AND CO FOUNDER: No ALLERGIES: Reviewed and unchanged CONTRAST ALLERGY: NO. EXAM: CT -CONTRAST INDUCED NEPHROPATHY RISK FACTORS: Patient age > 60 years CREATININE: Creatinine Date Value Ref Range Status 12/30/2024 1.40 0.50 - 1.40 mg/dL Final Comment: Patients receiving either N-Acetylcysteine (NAC) or Metamizole prior to venipuncture, may have falsely depressed results. 02/26/2024 1.14 0.50 - 1.40 mg/dL Final Comment: Patients receiving either N-Acetylcysteine (NAC) or Metamizole prior to venipuncture, may have falsely depressed results. 02/24/2024 1.34 0.50 - 1.40 mg/dL Final Comment: Patients receiving either N-Acetylcysteine (NAC) or Metamizole prior to venipuncture, may have falsely depressed results. Estimated Glomerular Filtration Rate Date Value Ref Range Status 12/30/2024 56 (L) >=60 mL/min/1.73m? Final Comment: Estimated Glomerular Filtration Rate (eGFR) is calculated using the 2020 CKD-EPI creatinine equation. This equation utilizes serum creatinine, sex, and age as parameters. The creatinine assay has traceable calibration to isotope dilution-mass spectrometry. Refer to KDIGO guidelines for clinical interpretation. In patients with unstable renal function, e.g. those with acute kidney injury, the eGFR may not accurately reflect actual GFR. eGFR- Date Value Ref Range Status 08/17/2015 >60 Final P.O.C.T. RESULTS: POC done: Yes, See Lab Tab January 02, 2025 TREATMENT: N/A PERIPHERAL IV DATA: Ambulatory: A peripheral IV was started in the Left antecubital site with a Angio cath: 20 gauge. RADIOLOGY DEPARTMENT: CT; Exam(s) Completed: PVI SIGNATURE: RT Mya(R) PATIENT NAME: Bravo Freedman DATE: January 02, 2025 TIME: 9:31 [facility]08-21-2025 NoteHNO ID: [id number] Author: ALCON SR PA-C Service: Anesthesiology Author Type: Physician Dry Goods Inspector Type: Progress Notes Filed: 01/01/2025 16:23 Note Text: Summary: PAT review 64 yo male obese, ex-smoker, 4-5 beers daily, +MJ daily PMH: Afib ([place] - Eliquis LD 01/04), CAD/LA w/ PCI/stent 2019 (ASA), DM2 (Trulicity LD 12/28), COPD on O2 PRN, ORTIZ on CPAP w/ 2L O2 bleed in, HTN, HLD, GERD, BPH, infrarenal abdominal aortic aneurysm s/p EVAR (Go), Right renal artery occlusion, RICH/CKD ([place])[facility]08-21-2025 NoteHNO ID: [id number] Author: ALCON SR PA-C Service: Anesthesiology Author Type: Physician Dry Goods Inspector Type: Progress Notes Filed: 01/01/2025 16:10 Note Text: Summary: DOS meds MEDICATION INSTRUCTIONS PRIOR TO SURGERY Please read below carefully for your personalized instructions. Medications: If you are on blood thinner or anticoagulants including aspirin, please confirm with your surgical team on when to stop these medications. Unless instructed differently by your surgical team, stay on all of your medications until your surgery. Pre Surgery Med Instructions Medication instructions albuterol HFA (PROVENTIL HFA, VENTOLIN HFA) 90 mcg/actuation inhaler Use day of surgery. alfuzosin SR (UROXATRAL) 10 mg 24 hr tablet If you normally take this medication in the morning, it is ok to take the morning of surgery with a sip of water. amLODIPine (NORVASC) 10 mg tablet If you normally take this medication in the morning, it is ok to take the morning of surgery with a sip of water. ascorbic acid, vitamin C, (VITAMIN C) 500 mg tablet DO NOT TAKE THE MORNING OF SURGERY. aspirin, enteric coated (ASPIRIN, ENTERIC COATED) 81 mg EC tablet Follow surgeon's instructions. atorvastatin (LIPITOR) 80 mg tablet If you normally take this medication in the morning, it is ok to take the morning of surgery with a sip of water. Cholecalciferol, Vitamin D3, 125 mcg (5,000 unit) cap DO NOT TAKE THE MORNING OF SURGERY. Coenzyme Q10 (CO Q-10) 200 mg cap DO NOT TAKE THE MORNING OF SURGERY. ELIQUIS 5 mg tab(s) Follow surgeon's instructions. fluticasone-salmeterol (ADVAIR) 500-50 mcg/dose dsdv Use day of surgery. furosemide (LASIX) 20 mg tablet DO NOT TAKE THE MORNING OF SURGERY. isosorbide mononitrate ER (IMDUR) 30 mg 24 hr tablet If you normally take this medication in the morning, it is ok to take the morning of surgery with a sip of water. losartan (COZAAR) 25 mg tablet DO NOT TAKE THE MORNING OF SURGERY. Magnesium 250 mg tab DO NOT TAKE THE MORNING OF SURGERY. metoprolol tartrate, short acting, (LOPRESSOR) 50 mg tablet Follow surgeon's instructions. omega-3s/dha/epa/fish oil/D3 (VITAMIN-D + OMEGA-3 ORAL) DO NOT TAKE THE MORNING OF SURGERY. OXYGEN, HOME THERAPY, Continue as prescribed. pantoprazole DR (PROTONIX) 40 mg tablet If you normally take this medication in the morning, it is ok to take the morning of surgery with a sip of water. pyridoxine, vitamin B6, (VITAMIN B-6) 100 mg tablet DO NOT TAKE THE MORNING OF SURGERY. sertraline (ZOLOFT) 50 mg tablet If you normally take this medication in the morning, it is ok to take the morning of surgery with a sip of water. SPIRIVA RESPIMAT 2.5 mcg/actuation inhaler Use day of surgery. TRULICITY 0.75 mg/0.5 mL pen injector May resume after surgery - Accucheck day of surgery. - No oral diabetic medication the morning of surgery. - If you take one of the following weekly injectable medications, skip your dose the week before surgery: tirzepatide, semaglutide, dulaglutide, liraglutide, exentatide If you have any medication changes between receiving these instructions and your surgery date, please provide this updated information with the nurse who calls you the week day prior to your surgical procedure so we can update your list and provide you with updated instructions for the morning of your procedure.[facility]08-19-2025 Instructions* Patient Instructions* Colleen Calderon PA-C - 12/30/2024 1:32 PM EDT We discussed your atrial fibrillation (AFib) and upcoming procedure: - You are scheduled for a cardiac CT scan this Sunday to check for blood clots and assess your heart and chest. - Your ablation procedure is scheduled for Sunday at 8:00 AM. Please arrive at the hospital by 6:00-6:30 AM for pre-procedure preparation. - Do not take Eliquis (blood thinner) or Lasix (water pill) on the morning of your procedure. Continue taking Eliquis as usual until Sunday night. - Do not take Trulicity or any other diabetic medications on Sunday morning, as you will not be eating. - Chepe, the nurse, will call you tomorrow or to confirm any additional instructions, including whether to hold your aspirin. - During the procedure, you will be under general anesthesia. You may experience a hoarse or raspy voice afterward due to the breathing tube. - You will stay overnight in the hospital on Sunday and, if all goes well, be discharged on Sunday. We discussed your medications: - Continue taking your current medications as prescribed, except for the adjustments noted above for the procedure. - Your current medications include: atorvastatin (Lipitor), magnesium, metoprolol tartrate (Lopressor), sertraline (Zoloft), Eliquis, pantoprazole (Protonix), losartan (Cozaar), Coenzyme Q10, vitaminD3, vitamin B6, alfuzosin (Uroxatral), amlodipine (Norvasc), vitamin C, aspirin 81 mg, furosemide (Lasix), isosorbide mononitrate (IMDR), Trulicity, Spiriva, Advair, and albuterol. - You also use a CPAP machine at night and oxygen (3 liters during the day, 2 liters at night) for COPD. We discussed your AFib symptoms: - You reported more frequent episodes of AFib, occurring weekly or more often, with symptoms including dizziness, racing heart, chest discomfort, and fatigue. Episodes typically last up to an hour and resolve on their own. - You experience shortness of breath with activity, such as walking, but not at rest. We discussed your swelling and fluid retention: - You have swelling in your feet and ankles, with the left side swelling more than the right. - Elevate your legs when lying down to help reduce swelling. We discussed your weight and energy levels: - Your weight has increased by approximately 35 pounds since your last visit. - Your energy level is fair, and you are sleeping well at night. We discussed your diet: - Avoid salty foods, such as chips, as they can contribute to fluid retention and swelling. Follow-Up: - Chepe will call you tomorrow or to confirm final instructions for your procedure. - Please contact our office if you have any new or worsening symptoms, such as chest pain, significant shortness of breath, or swelling. Let us know if you have any additional questions or concerns. documented in this encounterGood [facility] History of Present illness Narrative* Colleen Calderon PA-C - 12/30/2024 1:00 PM EDT Images from the original note were not included. Heart, Vascular and Thoracic Jean Goldie Figueroa Department of Cardiovascular Medicine [facility] SECTION OF ELECTROPHYSIOLOGY OUTPATIENT VISIT DATE 12/30/2024 The patient consented to the use of ambient testbirds software for draft documentation of the visit consistent with [facility] s Notice of Privacy Practices. PRIMARY CARE PHYSICIAN: Mary Landeros MD [address] [facility] [address] [phone] CHIEF COMPLAINT: Update H&P for AF ablation with Dr. Rodriguez 01/05/25 HISTORY OF PRESENT ILLNESS: Mr. Freedman is a 64 year old male with a h/o abdominal aortic aneurysm s/p endovascular repair in 02/2024, paroxsymal atrial fibrillation diagnosed in 09/2022 s/p DCCV, COPD, NSTEMI with single vessel CAD s/p PCI/EAGLE to LCx 09/24/2018, chest pain, diabetes, GERD, hyperlipidemia, HTN, PVD, obesity, ORTIZ, SVT, and tobacco use. He was recently seen for initial outpatient EP consultation by Dr. Rodriguez on 10/30/2024 regarding SVT/AF management. At that time, he was experiencing symptom episodes associated with racing heart, chest pain, and fatigue about once a month lasting 15min to [address] Rodriguez reviewed treatment options at his visit in October including antiarrhythmics such as Sotalol,Tikosyn (these two require 3 day inpatient admission for loading and monitoring of QT intervals with a small group of patients who can also be intolerant to these medications) and Amiodarone (less desirable when other options are available due to its potential long-term side effects when used longer term- such as lung toxicity, inflammation of liver and thyroid). An AF ablation with ~1-2% seriousprocedural related complications such as cardiac perforation, needing emergency operation, bleeding, and very rarely were discussed. Informational brochure regarding AF ablation provided. He was to continue oral anticoagulation therapy. Additional, due to BMI >40, weight loss and lifestyle modifications were discussed. Risk factors for AF to avoid were also discussed. The indications and nature of Watchman were discussed with additional information provided for review. He presents today with his to update his H&P prior to planned AF ablation with Dr. Rodriguez on01/05/2025. Since his last visit on October 30, 2024, he reports an increase in the frequency of atrial fibrillation episodes, which now occur more frequently than once a month. These episodes vary in duration, lasting up to an hour, and resolve spontaneously. During these episodes, he experiences palpitations,dizziness, chest discomfort, and fatigue. He denies any new medical conditions or surgeries since his last visit and has not been hospitalized. He denies experiencing chest pain at rest, but notes dyspnea with minimal exertion, such as walkingshort distances. He denies dyspnea at rest or orthopnea and reports improved breathing with CPAP use at night. He denies any significant cough, fevers, or chills. He reports bilateral lower extremity edema, with the left side more affected than the right. The edema is typically below the knees, but can extend higher. He denies any bleeding issues, such as epistaxis or hematuria, and has not experienced lightheadedness or syncope unrelated to his atrial fibrillation episodes. He reports a good appetite, but notes a weight gain of approximately 35 pounds, with a current weight of 306 pounds. He describes his energy level as fair and reports sleeping well at night. He uses supplemental oxygen at 3 L/min during the day and 2 L/min at night, primarily when ambulating, driving, or sleeping. He uses a CPAP machine at night, but occasionally removes it during sleep.He is followed by a party plan sales unit advisor in [place] for his COPD. He is currently in the process of establishing care with a new primary care provider after his previous physician retired. He has known allergies to codeine, which causes migraines, and to Crestor and Lipitor, which cause leg cramps. His current medications include atorvastatin 80 mg once daily, magnesium 500 mg daily, metoprolol tartrate 50 mg BID, sertraline 50 mg in the morning, Eliquis 5 mg BID, pantoprazole 40 mg daily, losartan 25 mg BID, Coenzyme Q10 200 mg daily, vitamin D3, vitamin B6, alfuzosin 10 mg daily, [id number] mg at bedtime, vitamin C, aspirin 81 mg daily, furosemide 20 mg in the morning, isosorbide mononitrate 30 mg daily, Trulicity 0.75 mg once weekly, Spiriva inhaler 2 puffs once daily, Advair inhaler 1 puff BID, and albuterol inhaler as needed. He also uses a nebulizer occasionally. PAST MEDICAL HISTORY Diagnosis Date Anticoagulant long-term use Eliquis Atrial fibrillation ([facility]) DR ELISE BPH (benign prostatic hyperplasia) Has see urology in the past COPD (chronic obstructive pulmonary disease) ([facility]) managed by [place] pulmonology Coronary artery disease with stent--Dr. Elise Diabetes ([facility]) PCP manages gerd MED CONTROLLED Heart attack ([facility]) DR ELISE -HE HAD LA 2018 High cholesterol managed by PCP Hypertension Managed by PCP Infrarenal abdominal aortic aneurysm (AAA) without rupture Monitored/managed by Dr. Stiles. 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 Sees Dr. Panchal PAST SURGICAL HISTORY Procedure Laterality Date APPENDECTOMY 1975 [place] ANGIOPLASTY OPEN RENAL/VISCERAL 02/24/2024 Dr Stiles CARDIOVERSION x7 ENDOVASCULAR ANEURYSM REPAIR 02/19/2024 Dr Stiles HAND/FINGER SURGERY UNLISTED both thumbs for infection a year apart HEART CATHETERIZATION 09/24/2018 single vessel CAD of the mid LCX, normal LVSF, LVEF 65%, elveated LVEDP, nonobstructive CAD PCI/STENT 09/24/2018 EAGLE to mid CX FAMILY HISTORY Problem Relation Age of Onset Cancer Father liver- bouchra crocker SOCIAL HISTORY[1] ALLERGIES Allergen Reactions Codeine Gives him a migraine Crestor [Rosuvastat* Intolerance Leg cramps Lipitor [Atorvastat* Intolerance Leg cramps MEDICATIONS: ELIQUIS 5 mg tab(s) Take 5 mg by mouth two times a day. TRULICITY 0.75 mg/0.5 mL pen injector Inject 0.75 mg subcutaneously one time a week. furosemide (LASIX) 20 mg tablet Take 1 tablet by mouth once daily. sertraline (ZOLOFT) 50 mg tablet Take 50 mg by mouth every morning. SPIRIVA RESPIMAT 2.5 mcg/actuation inhaler Inhale 2 puffs as instructed once daily. fluticasone-salmeterol (ADVAIR) 500-50 mcg/dose dsdv Inhale 1 puff as instructed two times a day. isosorbide mononitrate ER (IMDUR) 30 mg 24 hr tablet Take 1 tablet by mouth once daily. Cholecalciferol, Vitamin D3, 125 mcg (5,000 unit) cap Take 1 capsule by mouth once daily. albuterol HFA (PROVENTIL HFA, VENTOLIN HFA) 90 mcg/actuation inhaler Inhale 1 puff as instructed every 4 hours as needed for wheezing/shortness of breath. amLODIPine (NORVASC) 10 mg tablet Take 10 mg by mouth daily at bedtime. aspirin, enteric coated (ASPIRIN, ENTERIC COATED) 81 mg EC tablet Take 1 tablet by mouth once daily. alfuzosin SR (UROXATRAL) 10 mg 24 hr tablet Take 10 mg by mouth once daily. atorvastatin (LIPITOR) 80 mg tablet Take 80 mg by mouth once daily. losartan (COZAAR) 25 mg tablet Take 25 mg by mouth two times a day. metoprolol tartrate, short acting, (LOPRESSOR) 50 mg tablet Take 50 mg by mouth two times a day. pantoprazole DR (PROTONIX) 40 mg tablet Take 40 mg by mouth once daily. omega-3s/dha/epa/fish oil/D3 (VITAMIN-D + OMEGA-3 ORAL) Take 125 mg by mouth once daily. LD 02/18/24 Coenzyme Q10 (CO Q-10) 200 mg cap Take 200 mg by mouth once daily. ascorbic acid, vitamin C, (VITAMIN C) 500 mg tablet Take 1,000 mg by mouth once daily. Magnesium 250 mg tab Take 500 mg by mouth once daily. pyridoxine, vitamin B6, (VITAMIN B-6) 100 mg tablet Take 100 mg by mouth once daily. OXYGEN, HOME THERAPY, Inhale 2 L/min as instructed daily at bedtime. WITH CPAP VITALS: BP 116/61 (BP Site: Left Arm, BP Position: Sitting, BP Cuff Size: Large Adult) Pulse 64 Wt (!) 138.8 kg (306 lb) SpO2 93% BMI 45.19 kg/m Past Vitals Last 3 Encounter BP Readings: Date: BP: 10/30/2024 134/70 02/23/2024 156/85 02/19/2024 208/111 Last 3 Encounter Pulse Readings: Date: Pulse: 10/30/2024 57 02/23/2024 66 02/19/2024 65 Last 3 Encounter Wt Readings: Date: Wt: 10/30/2024 122.2 kg (269 lb 6.4 oz) 02/23/2024 122.3 kg (269 lb 10 oz) 02/01/2024 124.2 kg (273 lb 13 oz) REVIEW OF SYSTEMS Review of Systems as noted in the HPI PHYSICAL EXAMINATION Physical Exam General: Morbidly obese male wearing NC O2 at 3L during the day in NAD; accompanied by at today's visit. Neuro/psych: Alert. Oriented x 3. Pleasant. Cooperative. Fair historian. HEENT: NCAT. PERRL. EOMI bilaterally. Normal speech. Hearing grossly intact bilaterally. Lymph/Neck: Supple. CV: RRR. Normal S1/S2. Distant heart tones secondary to body habitus. Resp: Decreased breath sounds throughout. Nonlabored at rest; no wheezes, rales, or rhonchi. Wearing NC O2, although concentrator turned off during his visit. Abdomen: Obese; soft; NT/ND with active bowel sounds. Extremities: warm and dry with 1+ BLE pitting edema; palpable radial pulses bilaterally. CARDIOVASCULAR MEDICINE TESTING EKG 10/30/2024: [facility] Impression: Vent rate: 58 bpm SD int: 220 ms QRS: 90 ms QT/QTc: 440/431 ms Sinus bradycardia with 1st degree AV block Otherwise normal ECG Transthoracic Echocardiogram 01/18/2024: [facility] Impression: Normal LV size. The LVEF is 65% No regional wall motion abnormalities noted. Structurally normal valves. Contrast injection was performed. Labs: WBC (k/uL) Date Value 02/26/2024 7.14 RBC (m/uL) Date Value 02/26/2024 4.13 (L) Hemoglobin (g/dL) Date Value 02/26/2024 12.9 (L) Hematocrit (%) Date Value 02/26/2024 38.5 (L) Platelet Count (k/uL) Date Value 02/26/2024 252 CO2 (mmol/L) Date Value 02/26/2024 25 Calcium, Total (mg/dL) Date Value 02/26/2024 10.0 AST (U/L) Date Value 10/02/2021 27 ALT (U/L) Date Value 10/02/2021 31 Potassium (mmol/L) Date Value 02/26/2024 4.4 08/17/2015 5.0 Sodium (mmol/L) Date Value 02/26/2024 137 08/17/2015 135 Magnesium (mg/dL) Date Value 02/24/2024 1.9 Creatinine (mg/dL) Date Value 02/26/2024 1.14 08/17/2015 1.04 BUN (mg/dL) Date Value 02/26/2024 18 08/17/2015 20 Glucose (mg/dL) Date Value 02/26/2024 130 08/17/2015 114 INR (no units) Date Value 02/24/2024 1.0 No results found for this basename: NTPROBNP,TG,HDL,LDL,CHOL No results found for: FREET4 No results found for: TSH Hemoglobin A1C (%) Date Value 08/26/2022 7.0 04/07/2022 6.7 10/02/2021 6.6 Magnesium Date Value Ref Range Status 02/24/2024 1.9 1.6 - 2.6 mg/dL Final PLAN AND RECOMMENDATIONS: 1. Paroxysmal atrial fibrillation (HCC) (I48.0) -He has a h/o symptomatic PAF episodes that have been increasing in frequency as of lately. -He is maintained on Lopressor and Eliquis 5mg BID for a [id number] VASc score of at least 3 (HTN, DM2, and CAD) with no acute bleeding issues noted. -Advise a routine CBC at least every 6-12 months in patients on chronic oral anticoagulation therapy to assess for new/worsening anemia; defer to PCP. Last H&H noted in Epic chart 12.9/38.5 in 02/2024. CBC will be checked prior to surgery next week. -Encouraged OAC compliance. -His cardiac CT is scheduled for this Sunday01/02/25 to assess for intracardiac thrombus and pulmonary vein stenosis prior to ablation. -His AF ablation procedure scheduled for Sunday01/05/[address] Rodriguez; patient instructedto arrive at 0600 for pre-op preparation. -Educated patient to continue Eliquis as prescribed until Sunday night, and to hold Eliquis on the morning of the procedure. -Advised to hold Lasix on the morning of the procedure. -Ok to continue daily 81mg ASA. -NGUYEN Rodriguez with Dr. Rodriguez will call patient prior to procedure to confirm medications and preop instructions. -Discussed ablation procedure, including general anesthesia, use of femoral venous access, and targeting of arrhythmogenic foci. -Reviewed post-procedure expectations, including overnight hospital stay and anticipated discharge on Sunday. -Postop appointments and wound care instructions will be provided prior to discharge. -Bring home CPAP to day of surgery for overnight use. -Avoid AF triggers. 2. Obstructive sleep apnea syndrome (G47.33) -He has a h/o ORTIZ with nighttime CPAP and supplemental O2 use. -He uses 3L of supplemental NC O2 during the day, and 2L at night for ORTIZ and COPD management. -Continue current CPAP and oxygen therapy regimen. -Continue to followup with pulmonary as scheduled. 3. Obesity, Class III, BMI 40-49.9 (morbid obesity) ([facility]) (E66.816) -He has a h/o morbid obesity with BMI of 43. -Discussed importance of weight management in relation to overall health and cardiac function. -Encouraged weight loss through a heart healthy diet and regular exercise/activity as able. -He has gained nearly 35# since his last visit with our office. Colleen Calderon PA-C I spent a total of >30 minutes today which included preparing to see the patient/chart review, [id number] patient care, obtaining/reviewing appropriate history, obtaining medically appropriate exam, counseling and educating patient/family/caregiver, ordering/interpreting tests/procedures, managing medications, completing clinical documentation, and care coordination. Some elements of the note have been copied from previous notes/visits. The elements have been updated and all reflect current decision making from today, 12/30/2024. [1] Social History Tobacco Use Smoking status: Former Average packs/day: 0.5 packs/day for 30.0 years (15.0 ttl pk-yrs) Types: Cigarettes Start date: 1988 Passive exposure: Past Smokeless tobacco: Never Tobacco comments: STARTED SMOKING TEENS ,QUIT SMOKING 2019 - 1.5 PACK A DAY Vaping Use Vaping status: Never Used Substance Use Topics Alcohol use: Yes Alcohol/week: 36.0 standard drinks of alcohol Types: 36 Cans of beer per week Comment: few beers daily-4 Drug use: Yes Frequency: 7.0 times per week Types: Marijuana Comment: marijuana.-SMOKES documented in [facility]Good [facility] NoteHNO ID: [id number] Author: COLLEEN CALDERON PA-C Service: ? Author Type: Physician Dry Goods Inspector Type: Progress Notes Filed: 01/02/2025 18:36 Note Text: Heart, Vascular and Thoracic Jean Goldie Figueroa Department of Cardiovascular Medicine [facility] SECTION OF ELECTROPHYSIOLOGY OUTPATIENT VISIT DATE 12/30/2024 The patient consented to the use of [employer] software for draft documentation of the visit consistent with [facility]?s Notice of Privacy Practices. PRIMARY CARE PHYSICIAN: Mary Landeros MD [address] [place] [id number] [phone] CHIEF COMPLAINT: Update HANDP for AF ablation with Dr. Rodriguez 01/05/25 HISTORY OF PRESENT ILLNESS: Mr. Freedman is a 64 year old male with a h/o abdominal aortic aneurysm s/p endovascular repair in 02/2024, paroxsymal atrial fibrillation diagnosed in 09/2022 s/p DCCV, COPD, NSTEMI with single vessel CAD s/p PCI/EAGLE to LCx 09/24/2018, chest pain, diabetes, GERD, hyperlipidemia, HTN, PVD, obesity, ORTIZ, SVT, and tobacco use. He was recently seen for initial outpatient EP consultation by Dr. Rodriguez on 10/30/2024 regarding SVT/AF management. At that time, he was experiencing symptom episodes associated with racing heart, chest pain, and fatigue about once a month lasting 15min to [address] Rodriguez reviewed treatment options at his visit in October including antiarrhythmics such as Sotalol, Tikosyn (these two require 3 day inpatient admission for loading and monitoring of QT intervals with a small group of patients who can also be intolerant to these medications) and Amiodarone (less desirable when other options are available due to its potential long-term side effects when used longer term- such as lung toxicity, inflammation of liver and thyroid). An AF ablation with ~1-2% serious procedural related complications such as cardiac perforation, needing emergency operation, bleeding, and very rarely were discussed. Informational brochure regarding AF ablation provided. He was to continue oral anticoagulation therapy. Additional, due to BMI >40, weight loss and lifestyle modifications were discussed. Risk factors for AF to avoid were also discussed. The indications and nature of Watchman were discussed with additional information provided for review. He presents today with his to update his HANDP prior to planned AF ablation with Dr. Rodriguez on 01/05/2025. Since his last visit on October 30, 2024, he reports an increase in the frequency of atrial fibrillation episodes, which now occur more frequently than once a month. These episodes vary in duration, lasting up to an hour, and resolve spontaneously. During these episodes, he experiences palpitations, dizziness, chest discomfort, and fatigue. He denies any new medical conditions or surgeries since his last visit and has not been hospitalized. He denies experiencing chest pain at rest, but notes dyspnea with minimal exertion, such as walking short distances. He denies dyspnea at rest or orthopnea and reports improved breathing with CPAP use at night. He denies any significant cough, fevers, or chills. He reports bilateral lower extremity edema, with the left side more affected than the right. The edema is typically below the knees, but can extend higher. He denies any bleeding issues, such as epistaxis or hematuria, and has not experienced lightheadedness or syncope unrelated to his atrial fibrillation episodes. He reports a good appetite, but notes a weight gain of approximately 35 pounds, with a current weight of 306 pounds. He describes his energy level as fair and reports sleeping well at night. He uses supplemental oxygen at 3 L/min during the day and 2 L/min at night, primarily when ambulating, driving, or sleeping. He uses a CPAP machine at night, but occasionally removes it during sleep. He is followed by a party plan sales unit advisor in [place] for his COPD. He is currently in the process of establishing care with a new primary care provider after his previous physician retired. He has known allergies to codeine, which causes migraines, and to Crestor and Lipitor, which cause leg cramps. His current medications include atorvastatin 80 mg once daily, magnesium 500 mg daily, metoprolol tartrate 50 mg BID, sertraline 50 mg in the morning, Eliquis 5 mg BID, pantoprazole 40 mg daily, losartan 25 mg BID, Coenzyme Q10 200 mg daily, vitamin D3, vitamin B6, alfuzosin 10 mg daily, amlodipine 10 mg at bedtime, vitamin C, aspirin 81 mg daily, furosemide 20 mg in the morning, isosorbide mononitrate 30 mg daily, Trulicity 0.75 mg once weekly, Spiriva inhaler 2 puffs once daily, Advair inhaler 1 puff BID, and albuterol inhaler as needed. He also uses a nebulizer occasionally. PAST MEDICAL HISTORY Diagnosis Date Anticoagulant long-term use Ana Atrial fibrillation (HCC) DR ELISE BPH (benign prostatic hyperplasia) (more content not included)...[facility]06-26-2025 Telephone encounter Note* Telephone Encounter - Jennifer Pelletier - 11/06/2024 1:17 PM EDT Pt is calling back to let us know he wants to move forward w ablation [facility]06-26-2025 Miscellaneous Notes* Telephone Encounter - Jennifer Pelletier - 11/06/2024 1:17 PM EDT Pt is calling back to let us know he wants to move forward w ablation * Telephone Encounter - Uzma Manriquez - 11/04/2024 1:58 PM EDT Patient left a voicemail stating that he would like to go ahead with the ablation. Please call him back at [phone]. [facility] Telephone encounter Note * Telephone Encounter - Uzma Manriquez - 11/04/2024 1:58 PM EDT Patient left a voicemail stating that he would like to go ahead with the ablation. Please call him back at [phone]. [facility]06-19-2025 History of Present illness Narrative* Tiara Rodriguez MD - 10/30/2024 2:00 PM EDT Images from the original note were not included. [facility] Department of Cardiovascular Medicine SECTION OF CARDIAC PACING and ELECTROPHYSIOLOGY OUTPATIENT VISIT DATE October 30, 2024 OUTPATIENT VISIT TYPE NEW PRIMARY CARE PHYSICIAN: Graham Priest (Tito) [address] [place] [address] REFERRING PHYSICIAN: No referring provider defined for this encounter. CHIEF COMPLAINT: Palpitations once a month HISTORY OF PRESENT ILLNESS: Mr. Freedman is a 64 year old male who presents today to review management of his SVT/AF. Has a history of pAF with initial diagnosis of it in September 2022 DCCV- symptoms of racing heart, chestpain, tired. In the recent times, episodes about once a month variable duration from 15mins to up to 3 hours. No syncope, but dizziness. History of CAD with prior LA s/p PCI to Lcx in 2019 - no recurrence of angina. PAST CARDIAC HISTORY: PAST MEDICAL HISTORY Diagnosis Date Atrial fibrillation ([facility]) DR ELISE COPD (chronic obstructive pulmonary disease) ([facility]) PCP Coronary artery disease Diabetes ([facility]) PCP gerd MED CONTROLLED Heart attack ([facility]) DR ELISE -HE HAD LA 2019 High cholesterol MED CONTROLLED Hypertension MED CONTROLLED Infrarenal abdominal aortic aneurysm (AAA) without rupture Peripheral vascular disease DR STILES Sleep apnea CPAP 02 - 2 L/MIN AT SLEEP STUDY RIDGEWAY PAST SURGICAL HISTORY Procedure Laterality Date APPENDECTOMY 1975 CARDIOVERSION x7 HEART CATHETERIZATION jacquelin PAST SURGICAL HISTORY OF both thumbs for infection a year apart PAST SURGICAL HISTORY OF 2019 STENTS X 1 - CAD ANGIOPLASTY = 2019 SOCIAL HISTORY Social History Tobacco Use Smoking status: Former Average packs/day: 0.5 packs/day for 30.0 years (15.0 ttl pk-yrs) Types: Cigarettes Start date: 1988 Passive exposure: Past Smokeless tobacco: Never Tobacco comments: STARTED SMOKING TEENS ,QUIT SMOKING 2019 - 1.5 PACK A DAY Substance Use Topics Alcohol use: Yes Alcohol/week: 36.0 standard drinks of alcohol Types: 36 Cans of beer per week Comment: few beers daily-4 Drug use: Yes Frequency: 7.0 times per week Comment: marijuana.-SMOKES FAMILY HISTORY Problem Relation Age of Onset Cancer Father liver- drank alot ALLERGIES: ALLERGIES Allergen Reactions Codeine Gives him a migraine Crestor [Rosuvastat* Intolerance Leg cramps Lipitor [Atorvastat* Intolerance Leg cramps MEDICATIONS: ELIQUIS 5 mg tab(s) Take 5 mg by mouth two times a day. TRULICITY 0.75 mg/0.5 mL pen injector Inject 0.75 mg subcutaneously one time a week. furosemide (LASIX) 20 mg tablet Take 1 tablet by mouth once daily. sertraline (ZOLOFT) 50 mg tablet Take 50 mg by mouth every morning. SPIRIVA RESPIMAT 2.5 mcg/actuation inhaler Inhale 2 puffs as instructed once daily. fluticasone-salmeterol (ADVAIR) 500-50 mcg/dose dsdv Inhale 1 puff as instructed two times a day. isosorbide mononitrate ER (IMDUR) 30 mg 24 hr tablet Take 1 tablet by mouth once daily. Cholecalciferol, Vitamin D3, 125 mcg (5,000 unit) cap Take 1 capsule by mouth once daily. albuterol HFA (PROVENTIL HFA, VENTOLIN HFA) 90 mcg/actuation inhaler Inhale 1 puff as instructed every 4 hours as needed for wheezing/shortness of breath. amLODIPine (NORVASC) 10 mg tablet Take 10 mg by mouth daily at bedtime. aspirin, enteric coated (ASPIRIN, ENTERIC COATED) 81 mg EC tablet Take 1 tablet by mouth once daily. alfuzosin SR (UROXATRAL) 10 mg 24 hr tablet Take 10 mg by mouth once daily. atorvastatin (LIPITOR) 80 mg tablet Take 80 mg by mouth once daily. losartan (COZAAR) 25 mg tablet Take 25 mg by mouth two times a day. metoprolol tartrate, short acting, (LOPRESSOR) 50 mg tablet Take 50 mg by mouth two times a day. pantoprazole DR (PROTONIX) 40 mg tablet Take 40 mg by mouth once daily. omega-3s/dha/epa/fish oil/D3 (VITAMIN-D + OMEGA-3 ORAL) Take 125 mg by mouth once daily. LD 02/18/24 Coenzyme Q10 (CO Q-10) 200 mg cap Take 200 mg by mouth once daily. ascorbic acid, vitamin C, (VITAMIN C) 500 mg tablet Take 1,000 mg by mouth once daily. Magnesium 250 mg tab Take 500 mg by mouth once daily. pyridoxine, vitamin B6, (VITAMIN B-6) 100 mg tablet Take 100 mg by mouth once daily. OXYGEN, HOME THERAPY, Inhale 2 L/min as instructed daily at bedtime. WITH CPAP Taking Apixaban 5mg BID PHYSICAL EXAMINATION: BP 134/70 (BP Site: Left Arm, BP Position: Sitting, BP Cuff Size: Regular Adult) Pulse (!) 57 Ht 175.3 cm (5' 9) Wt 122.2 kg (269 lb 6.4 oz) SpO2 90% BMI 39.78 kg/m Uses portable oxygen Chest clear Calves soft Soft HS CARDIOVASCULAR MEDICINE TESTING: Electrocardiogram: SR 58bpm I have personally reviewed the Electrocardiogram. Assessment IMPRESSION: Mr. Freedman is a 64 year old male with paroxysmal atrial fibrillation on Apixaban and periods of whatappeared to be long RP tachycardia likely AT (could be pulmonary vein related). He has chronic lung disease, history of smoking and alcohol use. He has AAA repair and CAD s/p PCI 2019 to Lcx. He has prior DCCV in 2022 for AF. Reported normal Echo OSH. PLAN AND RECOMMENDATIONS: #1 Paroxysmal atrial fibrillation - - Discussed management options including antiarrhythmics such as Sotalol, Tikosyn (these two require 3 day inpatient admission for loading and monitoring of QT intervals; there is a small group of patients who can also be intolerant to these medications) and Amiodarone (less desirable when other options are available due to its potential mcc side effects when used in longer term- such as lung toxicity, inflammation of liver and thyroid). - Discussed AF ablation (~1-2% serious procedural related complications such as cardiac perforation, needing emergency operation, bleeding and very rarely ). Information given for this On anticoagulation for stroke prevention. #2 Weight loss and lifestyle modification - we discussed that several lifestyle factors can contribute to AF development such as increased BMI, smoking use and alcohol use. Patient also asked about Watchman - usually indicated in patients with contraindication for mcc anticoagulation. Information provided. FU with me in 6 months Patient will think about options and let us know. Tiara Rodriguez, MBChB, FRACP, FHRS, FACC Staff Director Epidemiology, Cardiac Electrophysiology and Pacing Section Department of Cardiovascular Medicine Heart, Vascular and Thoracic [facility] documented in this encounterGood [facility] NoteHNO ID: [id number] Author: TIARA RODRIGUEZ MD Service: ? Author Type: Physician Type: Progress Notes Filed: 10/30/2024 14:59 Note Text: [facility] V[facility] Department of Cardiovascular Medicine SECTION OF CARDIAC PACING and ELECTROPHYSIOLOGY OUTPATIENT VISIT DATE October 30, 2024 OUTPATIENT VISIT TYPE NEW PRIMARY CARE PHYSICIAN: Graham Priest (Tito) [address] [place] [address] REFERRING PHYSICIAN: No referring provider defined for this encounter. CHIEF COMPLAINT: Palpitations once a month HISTORY OF PRESENT ILLNESS: Mr. Freedman is a 64 year old male who presents today to review management of his SVT/AF. Has a history of pAF with initial diagnosis of it in September 2022 DCCV- symptoms of racing heart, chest pain, tired. In the recent times, episodes about once a month variable duration from 15mins to up to 3 hours. No syncope, but dizziness. History of CAD with prior LA s/p PCI to Lcx in 2019 - no recurrence of angina. PAST CARDIAC HISTORY: PAST MEDICAL HISTORY Diagnosis Date Atrial fibrillation ([facility]) DR ELISE COPD (chronic obstructive pulmonary disease) ([facility]) PCP Coronary artery disease Diabetes ([facility]) PCP gerd MED CONTROLLED Heart attack ([facility]) DR ELISE -HE HAD LA 2019 High cholesterol MED CONTROLLED Hypertension MED CONTROLLED Infrarenal abdominal aortic aneurysm (AAA) without rupture Peripheral vascular disease DR STILES Sleep apnea CPAP 02 - 2 L/MIN AT SLEEP STUDY [place] PAST SURGICAL HISTORY Procedure Laterality Date APPENDECTOMY 1975 CARDIOVERSION x7 HEART CATHETERIZATION jacquelin PAST SURGICAL HISTORY OF both thumbs for infection a year apart PAST SURGICAL HISTORY OF 2019 STENTS X 1 - CAD ANGIOPLASTY = 2019 SOCIAL HISTORY Social History Tobacco Use Smoking status: Former Average packs/day: 0.5 packs/day for 30.0 years (15.0 ttl pk-yrs) Types: Cigarettes Start date: 1988 Passive exposure: Past Smokeless tobacco: Never Tobacco comments: STARTED SMOKING TEENS ,QUIT SMOKING 2019 - 1.5 PACK A DAY Substance Use Topics Alcohol use: Yes Alcohol/week: 36.0 standard drinks of alcohol Types: 36 Cans of beer per week Comment: few beers daily-4 Drug use: Yes Frequency: 7.0 times per week Comment: marijuana.-SMOKES FAMILY HISTORY Problem Relation Age of Onset Cancer Father liver- drank alot ALLERGIES: ALLERGIES Allergen Reactions Codeine Gives him a migraine Crestor [Rosuvastat* Intolerance Leg cramps Lipitor [Atorvastat* Intolerance Leg cramps MEDICATIONS: ELIQUIS 5 mg tab(s) Take 5 mg by mouth two times a day. TRULICITY 0.75 mg/0.5 mL pen injector Inject 0.75 mg subcutaneously one time a week. furosemide (LASIX) 20 mg tablet Take 1 tablet by mouth once daily. sertraline (ZOLOFT) 50 mg tablet Take 50 mg by mouth every morning. SPIRIVA RESPIMAT 2.5 mcg/actuation inhaler Inhale 2 puffs as instructed once daily. fluticasone-salmeterol (ADVAIR) 500-50 mcg/dose dsdv Inhale 1 puff as instructed two times a day. isosorbide mononitrate ER (IMDUR) 30 mg 24 hr tablet Take 1 tablet by mouth once daily. Cholecalciferol, Vitamin D3, 125 mcg (5,000 unit) cap Take 1 capsule by mouth once daily. albuterol HFA (PROVENTIL HFA, VENTOLIN HFA) 90 mcg/actuation inhaler Inhale 1 puff as instructed every 4 hours as needed for wheezing/shortness of breath. amLODIPine (NORVASC) 10 mg tablet Take 10 mg by mouth daily at bedtime. aspirin, enteric coated (ASPIRIN, ENTERIC COATED) 81 mg EC tablet Take 1 tablet by mouth once daily. alfuzosin SR (UROXATRAL) 10 mg 24 hr tablet Take 10 mg by mouth once daily. atorvastatin (LIPITOR) 80 mg tablet Take 80 mg by mouth once daily. losartan (COZAAR) 25 mg tablet Take 25 mg by mouth two times a day. metoprolol tartrate, short acting, (LOPRESSOR) 50 mg tablet Take 50 mg by mouth two times a day. pantoprazole DR (PROTONIX) 40 mg tablet Take 40 mg by mouth once daily. omega-3s/dha/epa/fish oil/D3 (VITAMIN-D + OMEGA-3 ORAL) Take 125 mg by mouth once daily. LD 02/18/24 Coenzyme Q10 (CO Q-10) 200 mg cap Take 200 mg by mouth once daily. ascorbic acid, vitamin C, (VITAMIN C) 500 mg tablet Take 1,000 mg by mouth once daily. Magnesium 250 mg tab Take 500 mg by mouth once daily. pyridoxine, vitamin B6, (VITAMIN B-6) 100 mg tablet Take 100 mg by mouth once daily. OXYGEN, HOME THERAPY, Inhale 2 L/min as instructed daily at bedtime. WITH CPAP Taking Apixaban 5mg BID PHYSICAL EXAMINATION: BP 134/70 (BP Site: Left Arm, BP Position: Sitting, BP Cuff Size: Regular Adult) Pulse (!) 57 Ht 175.3 cm (5' 9) Wt 122.2 kg (269 lb 6.4 oz) SpO2 90% BMI 39.78 kg/m? Uses portable oxygen Chest clear Calves soft Soft HS CARDIOVASCULAR MEDICINE TESTING: Electrocardiogram: SR 58bpm I have personally reviewed the Electrocardiogram. Assessment IMPRESSION: (more content not included)...[facility]05-14-2025 Evaluation note* Diagnosis Onset Date Resolution Status Admit Date Obstructive sleep apnea acute M 2024 1:09pm Smoking greater than 40 pack years acute September 24, 2024 1 :09pm COPD (chronic obstructive pulmonary disease) chronic September 24 1:09pm POON (dyspnea on exertion) acute October 22, 2024 9:20am Abdominal aortic aneurysm chronic October 22, 2024 9:20am Atherosclerotic heart diseas e of [place] coronary artery without angina pectoris chronic October 9:20am History of supraventricular tachycardia chronic October 22, 2024 9:20am HLD (hyperlipidemia) chronic October 22, 2024 9:20am HTN (hypertension) chronic October 122024 9:20am PAF (paroxysmal atrial fibrillation) chronic October 22, 2024 9:20am Obstructive sleep apnea acute S eptember 2024 9:07am Smoking greater than 40 pack years acute January 21, 2025 9:07am COPD (chronic obstructive pulmonary disease) chronic January 9:07am [facility] Work Phone: 1(113) 851-147304-25-2025 Procedure notey [facility] Pulmonary Services/Neurology [address] [place] [address] MR#: [id number] Acct: [id number] Name: BRAVO FREEDMAN Rep #:[id number] : 1960 64 From: George Lee DO Referring Dr: Lynnette Avila ARMED GUARD-C Status: REG CLI Location: PSN Date: Sex: M C PSN 6 Minute Walk Test 6 Minute Walk Test 6 Minute Walk Test: 6 Minute Walk Test PSN:6-Minute Walk Test Start: 09/04/24 12:28 Freq: Status: Active Protocol: [id number] Document 09/04/24 12:28 YUDY (Rec: 09/04/24 12:34 [id number] [id number]) 6 Minute Walk Test Date Performed 09/04/24 Time Performed 12:15 Height 5 ft 9 in Weight: 285 lb Weight in Pounds 285.[address]: Lynnette Avila Assistive device None used: Pre-test Oxygen Delivery Room Air Method Pulse Ox (%) 92 Pulse Rate (60-100 66 beats/min) Dyspnea Ana Scale ( 0 0-10) Exertion Ana Scale 6 (6-20) 1st minute Oxygen Delivery Room Air Method Pulse Ox (%) 90 Pulse Rate (60-100 79 beats/min) 2nd minute Oxygen Delivery Room Air Method Pulse Ox (%) 88 Pulse Rate (60-100 80 beats/min) 3rd minute Oxygen Flow Rate (L/ 3 min) (L/min) Oxygen Delivery Nasal Cannula Method Pulse Ox (%) 91 Pulse Rate (60-100 78 beats/min) 4th minute Oxygen Flow Rate (L/ 3 min) (L/min) Oxygen Delivery Nasal Cannula Method Pulse Ox (%) 92 Pulse Rate (60-100 78 beats/min) 5th minute Oxygen Flow Rate (L/ 3 min) (L/min) Oxygen Delivery Nasal Cannula Method Pulse Ox (%) 91 Pulse Rate (60-100 80 beats/min) Number of Rests 1 Taken 6th minute Oxygen Flow Rate (L/ 3 min) (L/min) Oxygen Delivery Nasal Cannula Method Pulse Ox (%) 91 Pulse Rate (60-100 81 beats/min) Dyspnea Ana Scale ( 2 0-10) Exertion Ana Scale 14 (6-20) Post-test Oxygen Flow Rate (L/ 3 min) (L/min) Oxygen Delivery Nasal Cannula Method Pulse Ox (%) 93 Pulse Rate (60-100 69 beats/min) Full Laps Walked 11 Partial Lap, Number 6 of Tiles Walked Total Distance 655 Walked (ft) 09/04/24 12:30 Cardiopulmonary Services by Svetlana Cristina Patient wears 3 lpm O2 at home with pulse dose POC, on ambulation. Patient states he also has a concentrator at home where he can wear 2lpm continuous and inline with his CPAP HS. Patient started walk on room air. At the second minute SpO2 88%. Patient placed on home POC at 3lpm O2. He walked the rest of the test with 1 brief break. Patient stated he was not short of breath but his legs and back would have kept him from being able to walk any further. Initialized on 09/04/24 12:30 - END OF NOTE Interpretation Interpretation: The patient ambulated 655 feet over the course of 6 minutes beginning on room air without assistivedevices. Pretesting oxygen saturation was noted to be 92%on room air. With ambulation, the lupillo oxygen saturation was 88%. 3 L/min of pulsed dose supplemental oxygen was applied and the patient was able to completethe remainder of the test while maintaining appropriate saturations. Recommendations Recommendations: 3 L/min of pulse dose supplemental oxygen is required with exertion. 09/05/24 1219 O> Date _ George Lee DO CC: ~ Date Dictated: 09/05/24 1219 Date Transcribed: 09/05/241218 Training Development Director: Dr. George Lee DO Signed [facility]04-01-2025 Telephone encounter Note* Telephone Encounter - Vincent uLis - 08/12/2024 8:22 AM EDT Scheduled and confirmed. Vincent Luis [facility]04-01-2025 Miscellaneous Notes* Telephone Encounter - Vincent Luis - 08/12/2024 8:22 AM EDT Scheduled and confirmed. Vincent Luis * Telephone Encounter - Chepe Alan RN - 08/11/2024 5:[address] Somers reviewed this referral. Please offer Mr. Freedman a next available new-patient appointment with either Dr. Somers or Dr. Rodriguez. Thank you, Chepe Alan RN August 11, 2024 5:44 PM * Telephone Encounter - Uzma Manriquez - 08/11/2024 3:49 PM EDT Received a referral for Dr. Somers from [facility] the office of Syl Agarwal. Patient is referred for ablation for SVT vs atrial tachycardia or ORT. Scanned records into chart and will placeon desk for review. * Telephone Encounter - Uzma Manriquez - 08/11/2024 3:47 PM EDT Call placed to [facility] and spoke with Marlena to let her know that we did receive all 4parts of the referral. * Telephone Encounter - Yenni Sanchez RN - 08/11/2024 3:23 PM EDT [place] left a voicemail stating that they refaxed in 4 batches. * Telephone Encounter - Uzma Manriquez - 08/11/2024 12:18 PM EDT Call placed to office and it was closed. Faxed a request for referral to be resent as we only received part of it. * Telephone Encounter - Yenni Sanchez RN - 08/08/2024 3:30 PM EDT Jacquelin called again to check status of referral. * Telephone Encounter - Uzma Manriquez - 08/06/2024 4:16 PM EDT Call placed to [facility] and spoke with Chen to let her know we only received part ofthe fax. She is going to resend it. * Telephone Encounter - Yenni Sanchez RN - 08/05/2024 9:56 AM EDT [facility] called back to check status. She will refax to [phone]. Please call if you do not receive. * Telephone Encounter - Yenni Sanchez RN - 07/25/2024 2:14 PM EDT [facility] is faxing EP referral to Dr Somers to [phone]. If you do not receive it please call [phone]. documented in [facility] Telephone encounter Note * Telephone Encounter - Chepe Alan RN - 08/11/2024 5:[address] Somers reviewed this referral. Please offer Mr. Freedman a next available new-patient appointment with either Dr. Somers or Dr. Rodriguez. Thank you, Chepe Alan RN August 11, 2024 5:44 PM [facility]03-31-2025 Telephone encounter Note* Telephone Encounter - Uzma Manriquez - 08/11/2024 3:49 PM EDT Received a referral for Dr. Somers from [facility] the office of Syl Agarwal. Patient is referred for ablation for SVT vs atrial tachycardia or ORT. Scanned records into chart and will placeon desk for review. [facility]03-31-2025 Telephone encounter Note* Telephone Encounter - Uzma Manriquez - 08/11/2024 3:47 PM EDT Call placed to [facility] and spoke with Marlena to let her know that we did receive all 4parts of the referral. [facility]03-31-2025 Telephone encounter Note* Telephone Encounter - Yenni Sanchez RN - 08/11/2024 3:23 PM EDT [place] left a voicemail stating that they refaxed in 4 batches. [facility]03-31-2025 Telephone encounter Note* Telephone Encounter - Uzma Manriquez - 08/11/2024 12:18 PM EDT Call placed to office and it was closed. Faxed a request for referral to be resent as we only received part of it. [facility]03-28-2025 Telephone encounter Note* Telephone Encounter - Yenni Sanchez RN - 08/08/2024 3:30 PM EDT [place] called again to check status of referral. [facility]03-26-2025 Telephone encounter Note* Telephone Encounter - Uzma Manriquez - 08/06/2024 4:16 PM EDT Call placed to [facility] and spoke with Chen to let her know we only received part ofthe fax. She is going to resend it. [facility]03-25-2025 Evaluation note* Diagnosis Onset Date Resolution Status Admit Date Obstructive sleep apnea acute M 2024 8:52am Smoking greater than 40 pack years acute August 05, 2024 8:52am COPD (chronic obstructive pulmonary disease) chronic August 05, 8:52am Obstructive sleep apnea acute M 2024 1:09pm Smoking greater than 40 pack years acute September 24, 2024 1 :09pm COPD (chronic obstructive pulmonary disease) chronic September 24 1:09pm POON (dyspnea on exertion) acute October 22, 2024 9:20am Abdominal aortic aneurysm chronic October 22, 2024 9:20am Atherosclerotic heart diseas e of [place] coronary artery without angina pectoris chronic October 22, 2024 9:20am History of supraventricular tachycardia chronic October 22, 2024 9:20am HLD (hyperlipidemia) chronic October 22, 2024 9:20am HTN (hypertension) chronic October 122024 9:20am PAF (paroxysmal atrial fibrillation) chronic October 22, 2024 9:20am [facility] Work Phone: [phone] Telephone encounter Note* Telephone Encounter - Yenni Sanchez RN - 08/05/2024 9:56 AM EDT [facility] called back to check status. She will refax to [phone]. Please call if you do not receive. [facility]03-18-2025 Note. MICRO - Microbiology PROCEDURE: Blood Culture (bacterial) [*1] SOURCE: Blood BODY SITE: Arm R COLLECTED DATE/TIME: 07/23/2024 15:00 EDT RECEIVED DATE/TIME: 07/24/2024 15:18 EDT START DATE/TIME: 07/24/2024 15:19 EDT FREE TEXT SOURCE: FINAL REPORTS Final Report [] Verified Date/Time/Personnel: 07/29/2024 15:59 EDT Blood Culture: No Growth at 5 days. PRELIMINARY REPORTS Preliminary Report [] Verified Date/Time/Personnel: 07/24/2024 15:59 EDT Culture has been received in lab and is no growth to date. Routine cultures are held for 5 days. Performing Locations *1: This test was performed at: [address], [address] [place], [place] [address]03-18-2025 Note. MICRO - Microbiology PROCEDURE: Blood Culture (bacterial) [*1] SOURCE: Blood BODY SITE: Arm L COLLECTED DATE/TIME: 07/23/2024 15:06 EDT RECEIVED DATE/TIME: 07/24/2024 15:18 EDT START DATE/TIME: 07/24/2024 15:19 EDT FREE TEXT SOURCE: FINAL REPORTS Final Report [] Verified Date/Time/Personnel: 07/29/2024 15:59 EDT Blood Culture: No Growth at 5 days. PRELIMINARY REPORTS Preliminary Report [] Verified Date/Time/Personnel: 07/24/2024 15:59 EDT Culture has been received in lab and is no growth to date. Routine cultures are held for 5 days. Performing Locations *1: This test was performed at: [address], [address] [place], [place] [address]03-14-2025 Telephone encounter Note* Telephone Encounter - Yenni Sanchez RN - 07/25/2024 2:14 PM EDT [facility] is faxing EP referral to Dr Somers to [phone]. If you do not receive it please call [phone]. [facility]03-13-2025 NoteDischarge Instructions Discharge Summary [address] [place] [address] [id number] 07/23/2024 Patient: BRAVO FREEDMAN Sex: Male : 1960 Age: 64y Thank you for visiting [facility]. You have been evaluated today by Michele Cho D.O. for the following condition(s): Principal Diagnosis Chest pain characterized as discomfort, pressure and tightness. Longstanding sinus tachycardia. Abnormal EKG: atrial fibrillation. Bacterial bronchopneumonia with hypoxemia. 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 [address] [id number] 07/23/2024 Patient: BRAVO FREEDMAN Sex: Male : 1960 Age: 64y Thank you for visiting [facility]. You have been evaluated today by Michele Cho D.O. for the following condition(s): Principal Diagnosis Chest pain characterized as discomfort, pressure and tightness. Longstanding sinus tachycardia. Abnormal EKG: atrial fibrillation. Bacterial bronchopneumonia with hypoxemia. ADDITIONAL INFORMATION Atrial Fibrillation Discharge Instructions Atrial fibrillation is a condition in which the heart beats in an irregular pattern. It is the mostcommon abnormal heart rhythm. It is caused by a problem in the heart's electrical pathways within the muscle of theupper chambers of the heart (atria). It can be a sign of heart disease or other health problems that affect the heart. Heart palpitations are a common symptom of atrial fibrillation. This is the feeling that your heartis fluttering, or beating fast, hard, or irregular. When the heart beats too fast, it doesn't pump blood very well. This can cause other symptoms such as anxiety, fatigue, shortness of breath, chest pain, dizziness, or fainting. Atrial fibrillation may come and go. It can last from a few hours to a couple of days. Or it may become intermediate manager (chronic), lasting for months at a time or even become permanent. Some symptoms of atrial fibrillation are hard to notice. They include feeling less able to exercise. Some people have no symptoms. Atrial fibrillation is more common in older adults. It may be caused by heart disease or other conditions in the body that affect the heart. They include: Coronary artery disease (atherosclerosis) . It is sometimes called blocked arteries. High blood pressure Disease of the heart valves Enlarged heart Heart failure Atrial fibrillation can also occur without heart disease because of: Overactive thyroid (hyperthyroid) Chronic lung disease (COPD, emphysema, or bronchitis) Heavy alcohol use Heart stimulants such as cocaine, amphetamines, diet pills, certain decongestant cold medicines, caffeine, or nicotine Infection Blood clot in the lung (pulmonary embolus) Diabetes Chronic kidney disease Obesity Extreme and continued athletic conditioning Certain genetic diseases Treating or removing these causes will help your treatment for atrial fibrillation. It will also make it less likely for it to come back. 3 of 11 Discharge Instructions Atrial fibrillation can alternate back and forth with another abnormal rhythm called atrial flutter. Atrial flutter is a more regular heart rhythm. It also linked to an increased risk for stroke. Proper treatment can lower your risk for stroke. Home care Follow these guidelines when caring for yourself at home: Go back to your usual activities as soon as you are feeling back to normal. If you smoke, stop smoking. Contact your healthcare provider or a local stop- smoking program for help. Don't use stimulants like alcohol, cocaine, amphetamines, diet pills, certain decongestant cold medicines, caffeine, or nicotine. If your provider prescribed medicine to stop atrial fibrillation from coming back, take it exactly as directed. Some medicines must be taken every day, not just when you have symptoms. This will help them work as they should. If you were prescribed a blood-thinning medicine called warfarin to lower your risk for stroke, have your blood tested regularly as advised by your provider. This will make sure you are getting the dose that is right for you. It also lowers your risk for side effects. You may have been prescribed other blood-thinning medicines that don't need regular testing. Follow-up care Follow up with your healthcare provider, or as advised. When to seek medical advice Call your healthcare provider right away if any of these following occur: Swelling in the legs that gets worse Unexpected weight gain Bleed (more content not included)...[facility]01-31-2025 Evaluation note* Diagnosis Onset Date Resolution Status Admit Date POON (dyspnea on exertion) acute June 13, 2024 2:38pm Abdominal aortic aneurysm chronic June 13, 2024 2:38pm Atherosclerotic heart diseas e of [place] coronary artery without angina pectoris chronic June 13 2:38pm History of supraventricular tachycardia chronic June 13 2:38pm HLD (hyperlipidemia) chronic 2024 2:38pm HTN (hypertension) chronic 2024 2:38pm PAF (paroxysmal atrial fibrillation) chronic June 13 2:38pm Obstructive sleep apnea acute M 2024 8:52am Smoking greater than 40 pack years acute August 05, 2024 8:52am COPD (chronic obstructive pulmonary disease) chronic August 05, 2 025 8:52am [facility] Work Phone: 1(118) 721-312801-31-2025 Evaluation note* Diagnosis Onset Date Resolution Status Admit Date POON (dyspnea on exertion) acute June 13, 2024 2:38pm Abdominal aortic aneurysm chronic June 13, 2024 2:38pm Atherosclerotic heart diseas e of [place] coronary artery without angina pectoris chronic June 13 2:38pm History of supraventricular tachycardia chronic June 13 2:38pm HLD (hyperlipidemia) chronic 2024 2:38pm HTN (hypertension) chronic 2024 2:38pm PAF (paroxysmal atrial fibrillation) chronic June 13 2:38pm Obstructive sleep apnea acute M 2024 8:52am Smoking greater than 40 pack years acute August 05, 2024 8:52am COPD (chronic obstructive pulmonary disease) August 05, 2 025 8:52am Obstructive sleep apnea acute M 2024 1:09pm Smoking greater than 40 pack years acute September 24, 2024 1 :09pm COPD (chronic obstructive pulmonary disease) chronic September 24 1:09pm [facility] Work Phone: 1(582) 104-418412-04-2024 [facility] Medical Records Department [address] [place] [address] Discharge Summary 04/16/24 1218 MR#: [id number] Acct: [id number] Name: BRAVO FREEDMAN Rep #: [id number] : 1960 63 From: Fernando Araya MD PCP: Dr. Graham Priest MD Status:ADM IN Location: [facility] [id number] Providers Date of Admission: 04/14/24 Date of Discharge: 04/16/24 Primary Care Physician: Dr. Graham Priest MD Reason For Visit: COPD EXACERBATION, ACUTE HYPOXIC RESP FAILURE Diagnosis Discharge Diagnosis (1) COPD exacerbation: Status: Chronic Code(s): J44.1 - Chronic obstructive pulmonary disease with (acute) exacerbation Plan Patient is a 63-year-old gentleman who presented with progressive shortness of breath. An assessment of COPD with acute exacerbation made admitted to monitored for further management 1. Acute hypoxia Secondary to acute exacerbation of COPD as well as suspected CHF. Patient was placed on supplemental oxygen ordered proBNP as part of his evaluation and his underlying COPD exacerbation treated per protocol ??? I have reviewed the oxygen testing, and this patient qualifies for the home equipment and portability. The patient is mobile in the home and the community. 2. COPD with acute ??? Patient started on bronchodilator treatment, systemic steroid as well as antibiotic therapy. Patient placed on oxygen titrated to keep saturation greater than 90. 3. Acute hypertensive urgency -Patient admitted blood pressure 193/94 did continue with home meds and adjusted doses. Added amlodipine and placed on hydralazine as needed for systolic blood pressure greater than 160 ??? 04/2024 significant improvement in kidney 4. Coronary artery disease ??? With successful PCI of the mid circumflex artery following cardiac catheterization in September 2018; patient is on guideline directed medical therapy 5. Diabetes mellitus type II -patient's oral hypoglycemics held. Placed on long acting insulin, Accu-Cheks a.c. and at bedtime and covered with sliding scale insulin 6. Paroxysmal atrial fibrillation ??? With previous DCCV. Patient is in sinus rhythm so on metoprolol for rate control as well as systemic anticoagulation with apixaban 7. Obstructive sleep apnea -consistent use of CPAP encouraged 8. Hx AAA -w/ repair w/ Dr. Stiles 9. GERD -Continue PPI 10.Class III obesity with BMI of 41.5 Complicating care weight loss advised. 11. Acute kidney injury ??? Secondary to diuretic therapy Lasix dose adjusted ??? Plan is for patient to have a BMP to be performed as outpatient 12. Acute congestive heart failure with preserved ejection fraction ??? Echo from 01/18/2024 demonstrated EF of 65%. Patient responded to diuretic therapy 13. DVT ppx - On Eliquis Time spent in the patient's overall evaluation,decision-making process, review of diagnostic data, adjustment of management, discussion with other providers, nursing nursing and ancillary staff involved in patient's care documentation, 38 Minutes Medications at Discharge Home Medications acetaminophen 325 mg tablet 650 mg (2 x 325 mg) PO Q6H PRN PRN Mild Pain (0- 2/10) 09/25/18 aspirin 81 mg tablet,delayed release 81 mg PO DAILY@0800 see pcp 09/25/18 atorvastatin 80 mg tablet 80 mg PO DAILY see pcp 05/16/19 ascorbic acid (vitamin C) 500 mg capsule,extended release 500 mg PO DAILY see pcp 11/13/19 pyridoxine (vitamin B6) 50 mg capsule (Vitamin B-6) 50 mg PO DAILY see pcp 11/13/19 losartan 25 mg tablet 25 mg PO BID see pc #180 tabs 11/22/21 albuterol sulfate 90 mcg/actuation aerosol inhaler (Ventolin HFA) 2 puff inhalation Q4H PRN PRN Wheezing #8.5 grams 02/23/22 pantoprazole 40 mg tablet,delayed release 40 mg PO DAILY see pcp 03/31/22 alfuzosin 10 mg tablet,extended release 24 hr 10 mg PO DAILY see pcp 02/13/23 metoprolol tartrate 50 mg tablet 50 mg PO BID #60 tabs 02/15/23 apixaban 5 mg tablet (Eliquis) 5 mg PO BID see pcp #180 tabs 10/15/23 blood sugar diagnostic (Accu-Chek Guide test strips) 11/28/23 lancets (Accu-Chek Softclix Lancets) 11/28/23 cholecalciferol (vitamin D3) 125 mcg (5,000 unit) capsule 125 mcg PO QDAY 12/07/23 semaglutide 0.25 mg or 0.5 mg (2 mg/3 mL) subcutaneous pen injector (Ozempic) 0.25 mg subcut QWEEK 02/23/24 coenzyme Q10 200 mg capsule (Co Q-10) 200 mg PO DAILY see pcp 03/07/24 magnesium 250 mg tablet 500 mg PO QDAY 03/07/24 metformin 500 mg tablet,extended release 24 hr 1,000 mg PO DAILY see pcp 03/07/24 doxycycline hyclate 100 mg capsule 100 mg PO BID 7 days #14 caps 04/14/24 amlodipine 10 mg tablet 10 mg PO DAILY #90 tabs 04/16/24 cefdinir 300 mg capsule 300 mg PO BID #10 caps 04/16/24 furosemide 20 mg tablet (Lasix) 20 mg PO DAILY #90 tabs 04/16/24 guaifenesin 1,200 mg tablet, extended release 12 hr (Mucus Relief ER) 1,200 mg PO BID #20 tabs 04/16/24 prednisone 20 mg tablet 20 mg PO BID #10 tabs 04/16/24 (more content not included)...[facility]10-15-2024 NoteHNO ID: [id number] Author: KYUNG STILES MD Service: Vascular Surgery Author Type: Physician Type: Progress Notes Filed: 02/26/2024 09:38 Note Text: VASCULAR SURGERY PROGRESS NOTE Service Date: 02/26/2024 Admit Date: 02/23/2024 Service Time: 9:37 AM LOS: 2 day(s) Interval Events/Issues: Patient is doing well. Pain is mostly relieved now. His creatinine stable 1.3. Bandage removed from the left wrist has good pulse. Subjective Current Facility-Administered Medications Medication Dose Route Frequency aspirin, enteric coated 81 mg tab(s) 81 mg ORAL DAILY atorvastatin 80 mg tab(s) (LIPITOR) 80 mg ORAL DAILY Coenzyme Q10 cap 200 mg 200 mg ORAL DAILY metoprolol tartrate (short acting) 50 mg tab(s) (LOPRESSOR) 50 mg OR[address] BID [address] 40 mg tab(s) (PROTONIX) 40 mg ORAL DAILY pyridoxine (vitamin B6) 100 mg tab(s) (VITAMIN B6) 100 mg ORAL DAILY NaCl 0.9% iv flush bag 20 mL INTRAVENOUS PRN ondansetron 4 mg tab(s) (ZOFRAN) 4 mg ORAL q 6 H PRN Or ondansetron (PF) 4 mg injection (ZOFRAN) 4 mg INTRAVENOUS q 6 H PRN polyethylene glycol 3350 17 g packet 17 g ORAL DAILY PRN acetaminophen 1,000 mg tab(s) (TYLENOL) 1,000 mg ORAL q 6 H gabapentin 300 mg cap(s) (NEURONTIN) 300 mg ORAL DAILY oxyCODONE IR 5 mg tab(s) (ROXICODONE) 5 mg ORAL q 6 H PRN lidocaine 4 % 1 Patch (SALONPAS) 1 Patch TRANSDERMAL DAILY methocarbamol 1,000 mg tab(s) (ROBAXIN) 1,000 mg ORAL QID PRN melatonin 3 mg tab(s) 3 mg ORAL DAILY (8 PM) dextrose 40 % 15 g 15 g ORAL PRN Or glucagon 1 mg injection 1 mg INTRAMUSCULAR PRN Or dextrose 10% iv bolus 12.5 g INTRAVENOUS PRN insulin lispro injection (rapid acting) (ADMElog) SUBCUTANEOUS w MEALS doxazosin 1 mg tab(s) (CARDURA) 1 mg ORAL DAILY heparin RATE CHANGE bolus 1,000-4,000 Units for subtherapeutic PTTAC results 1,000-4,000 Units INTRAVENOUS PRN apixaban 5 mg tab(s) (ELIQUIS) 5 mg ORAL BID Followed by [START ON 03/03/2024] apixaban 5 mg tab(s) (ELIQUIS) 5 mg ORAL BID hydrALAZINE 25 mg tab(s) (APRESOLINE) 25 mg ORAL q 8 H LORazepam 1 mg tab(s) (ATIVAN) 1 mg ORAL q 2 H PRN Or LORazepam 2 mg tab(s) (ATIVAN) 2 mg ORAL q 2 H PRN Or LORazepam 2 mg tab(s) (ATIVAN) 2 mg ORAL q 1 H PRN thiamine 100 mg tab(s) (VITAMIN B1) 100 mg ORAL/FEEDING TUBE TID folic acid 1 mg tab(s) 1 mg ORAL DAILY Medication and Non-Pharmacologic VTE Prophylaxis/Anticoagulants Anticoagulant AND Antiplatelet Medications (From admission, onward) Start Dose Route Frequency Last Action Ordered Stop 03/03/24 0900 apixaban 5 mg tab(s) (ELIQUIS) (apixaban tab(s) (ELIQUIS)) Placed in Followed by Linked Group 5 mg ORAL 2 TIMES DAILY Ordered 02/24/242003 -- 02/25/24 09 apixaban 5 mg tab(s) (ELIQUIS) (apixaban tab(s) (ELIQUIS)) Placed in Followed by Linked Group 5 mg ORAL 2 TIMES DAILY Given, 02/25 75702/24/24200303/03/24 0859 02/23/241999 aspirin, enteric coated 81 mg tab(s) 81 mg ORAL DAILY Given, 02/25 75702/23/24 1930 -- 02/24/24 1700 vte current anticoag therapy (in,[place]) 02/24/24 170 activity - mobilize patient (in,dc) ALLERGIES Allergen Reactions Codeine Gives him a migraine Crestor [Rosuvastat* Intolerance Leg cramps Lipitor [Atorvastat* Intolerance Leg cramps Objective PHYSICAL EXAM: Patient Vitals for the past 24 hrs: BP Temp Temp src Pulse Resp SpO2 02/26/24 0718 156/85 36.7 ?C (98.1 ?F) Oral 66 18 95 % 02/26/24 0035 -- -- -- 63 15 95 % 02/25/24 2328 147/84 36.9 ?C (98.5 ?F) Oral 63 19 94 % 02/25/24 2045 168/90 37.2 ?C (98.9 ?F) Oral 63 16 95 % 02/25/24 1600 153/79 37.1 ?C (98.7 ?F) Oral 64 20 95 % 02/25/24 1142 144/82 36.9 ?C (98.4 ?F) Oral 64 -- 94 % Intake/Output Summary (Last 24 hours) at 02/26/2024 0937 Last data filed at 02/26/2024 0630 Gross per 24 hour Intake 810 ml Output -- Net 810 ml Patient awake, alert No apparent distress Afebrile vital signs stable Abdomen soft Decreased back pain Good pulse left wrist Moves all extremities well DATA: Laboratory: Recent Labs 02/26/24 0649 02/25/24 0302 02/24/24 1033 WBC 7.14 7.50 7.09 HB 12.9* 12.1* 12.2* HCT 38.5* 37.1* 36.8* PLT 252 225 203 Recent Labs 02/26/24 0649 02/24/24 0520 02/23/24 2039 NA 137 138 137 K 4.4 4.1 3.9 BUN 18 21 16 CREAT 1.14 1.34 1.19 GLUC 130* 162* 155* MG -- 1.9 -- Recent Labs 02/25/24 0302 02/24/24 1033 APTT 24.6 33.4* INR -- 1.0 Impression: Bravo Freedman is a 63 year old White male Plan: 1. Postop endovascular aneurysm repair with occluded right renal artery. Continue his Eliquis which she was on before and aspirin 81 mg. I will see him back in the office in 3 weeks No problems updated. SIGNATURE: Kyung Stiles MD PATIENT NAME: Bravo Freedman DATE: February 26, 2024 TIME: 9:37 AM ETX#[id number]10-14-[facility] NoteHNO ID: [id number] Author: VENU WASHINGTON LSW Service: Care Management Author Type: Tool Mechanic Type: Care Mgt Progress Note Filed: 02/25/2024 15:04 Note Text: CARE MANAGEMENT PROGRESS NOTE SERVICE DATE: 02/25/2024 SERVICE TIME: 2:58 PM LOS: 1 day Chart reviewed. Patient admitted from home where he lives with his , he is independent with ADL's, he has DME available at home, C-PCP and O2 through [facility]. He states will have a ride home. He is current with PCP and is able to afford medications. No needs expressed for home going. Admit Dx of- Intractable back pain Vascular Surgery consulted and patient with-Occluded right renal artery had procedure 02/23. Ultrasound-guided access retrograde left radial artery. 2. Aortogram. 3. Closure radial band Plan is for patient to return home at D/C. Voices no needs. CM to follow SIGNATURE: VIVIANE Garcia PATIENT NAME: Bravo Freedman DATE: February 25, 2024 TIME: 2:58 PM PAGER/CONTACT #: [phone]10-14-2024 Note HNO ID: [id number] Author: MARILU KIRBY PA Service: Hospital Medicine Author Type: Physician Dry Goods Inspector Type: Progress Notes Filed: 02/25/2024 16:28 Note Text: DEPARTMENT OF HOSPITAL MEDICINE PROGRESS NOTE SERVICE DATE: 02/25/2024 SERVICE TIME: 8:37 AM Hospital Medicine/Primary Attending: REAL Gray INTERVAL HPI: Pt is a 63 yo male with PMHx of HTN, HLD, PVD, CAD, Afib, TIIDM, COPD, ORTIZ, and AAA s/p 02/[address] Stiles presenting with persistent back pain after his procedure as a transfer from [facility] for vascular surgery consult. CTA was completed which revealed a lack of flow to the R Renal artery. Subjective : Feeling well. Reports back pain has nearly resolved and wants to go home however aware we are awaiting for improvement in kidney function overnight as well as vascular surgery recommendations. Denies CP, SOB, dizziness/lightheadedness. No significant overnight events per RN. Review of Systems Respiratory: Negative for shortness of breath. Cardiovascular: Negative for chest pain. Gastrointestinal: Negative for abdominal pain and nausea. MEDICATIONS: Reviewed Objective PHYSICAL EXAM: BP 165/89 Pulse 62 Temp (Src) 98.5 (Oral) Resp 18 Ht 5' 9 (1.75m) Wt 269 lb 10 oz (122.3kg) SpO2 95% BMI 39.80 kg/(m2). O2 Therapy: Room Air, Liters: 2 Physical Exam Constitutional: General: He is not in acute distress. Appearance: He is obese. He is not ill-appearing. Comments: Pleasant and cooperative adult male sitting up in bed, NAD. Cardiovascular: Rate and Rhythm: Normal rate and regular rhythm. Heart sounds: Normal heart sounds. Pulmonary: Effort: Pulmonary effort is normal. Breath sounds: Normal breath sounds. Abdominal: General: Bowel sounds are normal. There is no distension. Palpations: Abdomen is soft. Tenderness: There is no abdominal tenderness. Neurological: Mental Status: He is alert. Psychiatric: Mood and Affect: Mood normal. Behavior: Behavior normal. DATA: Diagnostic tests reviewed for today's visit: Most recent labs and imaging results. CBC, Coags, BMP, Mg, Phos Recent Labs 02/25/24 0302 02/24/24 1033 02/24/24 0520 02/23/24 2039 WBC 7.50 7.09 7.20 7.91 HB 12.1* 12.2* 11.6* 12.3* HCT 37.1* 36.8* 35.5* 37.1* PLT 225 203 197 196 INR -- 1.0 -- -- APTT 24.6 33.4* -- -- NA -- -- 138 137 K -- -- 4.1 3.9 CHLOR -- -- 105 104 CO2 -- -- 28 28 BUN -- -- 21 16 CREAT -- -- 1.34 1.19 GLUC -- -- 162* 155* CA -- -- 9.4 9.9 MG -- -- 1.9 -- Liver Function, Amylase, AND Lipase Cardiac Enzymes Assessment and Plan: #Infrarenal abdominal aortic aneurysm s/p repair 02/18 #R Renal Artery Occlusion - Vascular surgery following. S/p R Renal angiogram 02/23. Appreciate vascular recommendations. - Pain management with scheduled tylenol, prn muscle relaxer, lidocaine patch, prn oxycodone. - heparin -> eliquis per vascular recs. #RICH - Cr 1.34, baseline 0.8-1. - Monitor daily BMP d/t high risk of renal dysfunction. #EtOH Abuse without Withdrawal - 5-6 beers daily. No current evidence of withdrawal - Start CIWA Protocol with prn ativan and thiamine/folate supplementation. #CAD #Hypertensive Urgency (resolevd) #HLD #Afib #PVD - Continue home ASA, atorvastatin 80mg daily - BP as high as 222/107 on admission. Now better-controlled. Continue cardura 1mg daily. Hold losartan 25mg to allow for renal function recovery and add hydralazine for now. Pt agreeable to this. - Eliquis resumed. Continue home lopressor 50mg BID. #TIIDM- Scale I SSI. - Continue Accu-Cheks before meals and at bedtime. Hypoglycemia management per protocol. - hold home metformin. #COPD without exacerbation #ORTIZ on CPAP #GERD- Continue home protonix 40mg #BPH- Continue home alfuzosin 10 mg po daily #Obesity class III- continue to encourage weight loss. Medication and Non-Pharmacologic VTE Prophylaxis/Anticoagulants Anticoagulant AND Antiplatelet Medications (From admission, onward) Start Dose Route Frequency Last Action Ordered Stop 03/03/24 09 apixaban 5 mg tab(s) (ELIQUIS) (apixaban tab(s) (ELIQUIS)) Placed in Followed by Linked Group 5 mg ORAL 2 TIMES DAILY Ordered 02/24/242003 -- 02/25/24 09 apixaban 5 mg tab(s) (ELIQUIS) (apixaban tab(s) (ELIQUIS)) Placed in Followed by Linked Group 5 mg ORAL 2 TIMES DAILY Given, 02/24 80602/24/24200303/03/24 0859 02/24/24 1030 heparin iv infusion 25,000 units in NaCl 0.45% 250 mL LOW DOSE/ACS NOMOGRAM (Heparin Infusion + Bolus for Subtherapeutic PTTAC) 0-30 mL/hr Placed in And Linked Group 0-3,000 Units/hr INTRAVENOUS CONTINUOUS Stopped - Heparin, 02/24 0713 02/24/24 1008 02/25/24 0900 02/23/241999 aspirin, enteric coated 81 mg tab(s) 81 mg ORAL DAILY Given, 02/24 0802/23/24 1930 -- 02/24/24 170 vte current anticoag therapy ([place]) 02/24/24 170 activity - mobilize patient ([place]) VTE Prophylaxis: Full anticoagula (more content not included)...[facility]10-[facility]24 NoteHNO ID: [id number] Author: DIMITRIOS LANZA APRN.POLISHING MACHINE TENDER Service: Hospital Medicine Author Type: Nurse Practitioner Type: Progress Notes Filed: 02/24/2024 15:25 Note Text: INPATIENT PROGRESS NOTE SERVICE DATE: 02/24/2024 SERVICE TIME: 2:17 PM PRIMARY SERVICE: Hospitalist Disposition:home when cleared by vascular. S/p clot retrieval from renal artery 02/24/2024 Subjective CHIEF COMPLAINT: intractable back pain INTERVAL HPI: 63-year-old male with past medical history of hypertension, hyperlipidemia, A-fib, CAD, DM 2, arthritis and infrarenal abdominal aortic aneurysm. He was recently admitted on 02/18 for AAA repair with Dr. Stiles. He was discharged on Sunday and developed back pain on . Back pain persisted and he presented to the [place] ER. In the ER CTA chest abdomen pelvis was done and showed no flow to right renal artery. He was transferred here for further management. Dr. Stiles to take to surgery to retrieve clot from renal artery 02/24/24. Patient remains npo. Denies any current pain, sob, nausea. States had bm today. Complains of slight headache, tylenol given per surgeon recommendation due to upcoming surgery.Complains of being hungry but aware of plan with surgeon. Objective PHYSICAL EXAM: BP 169/80 Pulse 58 Temp (Src) 98.2 (Oral) Resp 20 Ht 5' 9 (1.75m) Wt 269 lb 10 oz (122.3kg) SpO2 94% BMI 39.80 kg/(m2). O2 Therapy: Room Air Physical Exam Performed Physical Exam Vitals and nursing note reviewed. Constitutional: Appearance: He is obese. HENT: Head: Normocephalic and atraumatic. Nose: Nose normal. No congestion or rhinorrhea. Mouth/Throat: Mouth: Mucous membranes are moist. Pharynx: Oropharynx is clear. No oropharyngeal exudate or posterior oropharyngeal erythema. Eyes: General: Right eye: No discharge. Left eye: No discharge. Conjunctiva/sclera: Conjunctivae normal. Cardiovascular: Rate and Rhythm: Normal rate and regular rhythm. Pulses: Normal pulses. Heart sounds: Normal heart sounds. No murmur heard. Pulmonary: Effort: Pulmonary effort is normal. No respiratory distress. Breath sounds: Normal breath sounds. No wheezing. Abdominal: General: Bowel sounds are normal. There is distension. Palpations: Abdomen is soft. Comments: Mild distension noted but states had bm Musculoskeletal: General: No swelling or tenderness. Skin: General: Skin is warm and dry. Neurological: General: No focal deficit present. Mental Status: He is alert and oriented to person, place, and time. Psychiatric: Mood and Affect: Mood normal. Behavior: Behavior normal. DATA: Intake/Output Summary (Last 24 hours) at 02/24/2024 1417 Last data filed at 02/24/2024 1358 Gross per 24 hour Intake 2016.19 ml Output -- Net 2016.19 ml Current Facility-Administered Medications Medication Dose Route Frequency Provider Last Rate Last Admin [Transfer Hold] heparin iv infusion 25,000 units in NaCl 0.45% 250 mL LOW DOSE/ACS NOMOGRAM 0-3,000 Units/hr INTRAVENOUS CONTINUOUS Dimitrios Lanza APRN.POLISHING MACHINE TENDER 10 mL/hr at 02/24/24 1106 1,000 Units/hr at 02/24/24 1106 And [Transfer Hold] heparin RATE CHANGE bolus 1,000-4,000 Units for subtherapeutic PTTAC results 1,000-4,000 Units INTRAVENOUS PRN Dimitrios Lanza APRN.POLISHING MACHINE TENDER [Transfer Hold] heparin nomogram - NO INITIAL BOLUS OTHER ONCE (heparin bolus) Dimitrios Lanza APRN.POLISHING MACHINE TENDER [Transfer Hold] aspirin, enteric coated 81 mg tab(s) 81 mg ORAL DAILY Sonia Combs MD 81 mg at 02/23/242001 [Transfer Hold] atorvastatin 80 mg tab(s) (LIPITOR) 80 mg ORAL DAILY Sonia Combs MD 80 mg at 02/23/242002 [Transfer Hold] Coenzyme Q10 cap 200 mg 200 mg ORAL DAILY Sonia Combs MD [Transfer Hold] losartan 25 mg tab(s) (COZAAR) 25 mg ORAL BID Sonia Combs MD 25 mg at 02/23/242002 [Transfer Hold] metoprolol tartrate (short acting) 50 mg tab(s) (LOPRESSOR) 50 mg ORAL BID Sonia Combs MD 50 mg at 02/23/242002 [Transfer Hold] pantoprazole DR 40 mg tab(s) (PROTONIX) 40 mg ORAL DAILY Sonia Combs MD 40 mg at 02/23/242001 [Transfer Hold] pyridoxine (vitamin B6) 100 mg tab(s) (VITAMIN B6) 100 mg ORAL DAILY Sonia Combs MD [Transfer Hold] NaCl 0.9% iv flush bag 20 mL INTRAVENOUS PRN Sonia Combs MD [Transfer Hold] ondansetron 4 mg tab(s) (ZOFRAN) 4 mg ORAL q 6 H PRN Sonia Combs MD Or [Transfer Hold] ondansetron (PF) 4 mg injection (ZOFRAN) 4 mg INTRAVENOUS q 6 H PRN Sonia Combs MD [Transfer Hold] polyethylene glycol 3350 17 g packet 17 g ORAL DAILY PRN Sonia Combs MD [Transfer Hold] acetaminophen 1,000 mg tab(s) (TYLENOL) 1,000 mg ORAL q 6 H Sonia Combs MD 1,000 mg at 02/24/24 1200 [Transfer Hold] gabapentin 300 mg cap(s) (NEURONTIN) 300 mg ORAL DAILY Sonia Combs MD 300 mg at 02/23/242002 [Transfer Hold] oxyCODONE IR 5 mg tab(s) (ROXICODONE) 5 mg ORAL q 6 H PRN Sonia Combs MD [Transfer Hold (more content not included)...[facility]10-09-2024 Note HNO ID: [id number] Author: CHRISTINA BRITT LSW Service: Care Management Author Type: Tool Mechanic Type: Care Mgt Progress Note Filed: 02/20/2024 10:00 Note Text: CARE MANAGEMENT DISCHARGE NOTE SERVICE DATE: February 20, 2024 SERVICE TIME: 946 Admission Date: 02/19/2024 LOS: 1 day Discharge Arrangement Discharge Arrangement: Home with Self Care Caregiver Assessment Caregiver is ready, willing and able to meet the patient's needs as recommended by the inter-professional team: No Caregiver needed Transportation Arrangements Transportation Arrangements: Car Date of Trip: 02/20/24 Destination: Home Handoff Communication: Line Out Worker Name/Phone: 2M PCC Aisha Lobato [phone] Additional Information: Consult of pt admitted from the home setting who is also discharged this date Met with pt this who is In agreement with d/c this date and states his brother will transport him home States he resides in a mobile home with ramp access and his spouse is able to assist with his care if indicated Confirms he has a CPAP and HS 02 from [facility] Denies any d/c needs and no follow up indicated SIGNATURE: VIVIANE Michelle PATIENT NAME: Bravo Freedman DATE: February 20, 2024 TIME: 9:44 AM CONTACT #: [phone] NoteHNO ID: [id number] Author: ISAAC CAT APRN.CRNA Service: Anesthesiology Author Type: Nurse Cofounder Type: Anesthesia Procedure Notes Filed: 02/19/2024 10:16 Note Text: ANESTHESIOLOGY PROCEDURE NOTE Airway General Information Procedure Start Time/Medication Administration: 02/19/2024 9:49 AM Procedure End Time: 02/19/2024 9:50 AM Patient location during procedure: OR Consent Obtained: Yes Patient identity confirmed: arm band, care steamfitter supervisor and patient Staffing PROMOTIONS EXECUTIVE: Isaac Cat APRN.PROMOTIONS EXECUTIVE Performed by: ALEXANDRO Indications and Patient Condition Indications for airway management: anesthesia and airway protection Preoxygenated: yes anesthesia circuit Patient position: sniffing Method: asleep Difficult Mask: Yes (2 person) Airway Accessory: oral airway Final Airway Details Final airway type: endotracheal airway Final Endotracheal Airway: ETT Cuffed: yes Successful intubation technique: video laryngoscopy Devices used: Nair and intubating stylet Endotracheal tube insertion site: oral Blade size: #3 ETT size (mm): 7.5 Measured from: lips Measurement (cm): 23 Placement verified by: chest auscultation and capnometry Cormack-Lehane Classification: grade I - full view of glottis Number of attempts at approach: 1 Failed airway: no Unrecognized esophageal intubation: no Airway not difficult SIGNATURE: Isaac Cat APRN.CRNA PATIENT NAME: Bravo Freedman DATE: February 19, 2024 TIME: 10:15 AM CSN: [id number]10-08-[facility]24 NoteHNO ID: [id number] Author: ISAAC CAT APRN.CRNA Service: Anesthesiology Author Type: Nurse Cofounder Type: Anesthesia Procedure Notes Filed: 02/19/2024 10:02 Note Text: ANESTHESIOLOGY PROCEDURE NOTE A-Line General Information Procedure Start Time/Medication Administration: 02/19/2024 10:01 AM Procedure End Time: 02/19/2024 10:01 AM Patient location during procedure: OR Timeout Performed Pre-procedure: timeout performed Indications: continuous blood pressure monitoring and blood sampling needed Staffing Anesthesiologist: Santana Boyd DO Performed by: anesthesiologist Preparation Sterility Preparation: hand hygiene performed prior to procedure, sterile gloves, drapes, and procedure tray, surgical cap used, mask used, sterile drape used during line insertion, skin prep agent completely dried prior to procedure Site Prep: Chloraprep Procedure Details Catheter Type: arterial line Catheter Size: 20 G Catheter Length: 1.75 in Guidewire Used: Yes Guidewire Removed Intact: Yes Laterality: left Site: radial artery Ultrasound Guided: No Line Secured: occlusive biodressing and tape Events Events: patient tolerated procedure well with no complications SIGNATURE: Isaac Cat APRN.CRNA PATIENT NAME: Bravo Freedman DATE: February 19, 2024 TIME: 10:01 AM CSN: [id number]10-08-[facility]24 NoteHNO ID: [id number] Author: ISAAC CAT APRN.CRNA Service: Anesthesiology Author Type: Nurse Cofounder Type: Anesthesia Procedure Notes Filed: 02/19/2024 10:34 Note Text: ANESTHESIOLOGY PROCEDURE NOTE PIV General Information Procedure Start Time/Medication Administration: 02/19/2024 10:01 AM Procedure End Time: 02/19/2024 10:01 AM Patient Location: OR Staffing Anesthesiologist: Santana Boyd DO Performed by: anesthesiologist Preparation Sterility Preparation: hand hygiene performed prior to procedure, surgical cap used, mask used, skin prep agent completely dried prior to procedure Site Prep: alcohol Procedure Details Indication: need for IV access Needle Size/Type: 18 gauge angiocath Orientation: Left Location: Hand Imaging Guidance Used: No SIGNATURE: Isaac Cat APRN.CRNA PATIENT NAME: Bravo Freedman DATE: February 19, 2024 TIME: 10:01 AM CSN: [id number]10-07-2024 NoteHNO ID: [id number] Author: ALCON SR PA-C Service: ? Author Type: Physician Dry Goods Inspector Type: Progress Notes Filed: 02/18/2024 09:58 Note Text: Summary: DOS meds MEDICATION INSTRUCTIONS PRIOR TO SURGERY Please read below carefully for your personalized instructions. Medications: If you are on blood thinner or anticoagulants including aspirin, please confirm with your surgical team on when to stop these medications. Unless instructed differently by your surgical team, stay on all of your medications until your surgery. Pre-Surgery Med Instructions Medication Instructions apixaban (ELIQUIS) 5 mg tab(s) Follow Prescribers Instructions alfuzosin SR (UROXATRAL) 10 mg 24 hr tablet DO NOT TAKE MORNING OF SURGERY atorvastatin (LIPITOR) 80 mg tablet If you normally take this medication in the morning, it is ok to take the morning of surgery with a sip of water. losartan (COZAAR) 25 mg tablet DO NOT TAKE MORNING OF SURGERY metFORMIN (GLUCOPHAGE) 500 mg tablet DO NOT TAKE MORNING OF SURGERY metoprolol tartrate, short acting, (LOPRESSOR) 50 mg tablet If you normally take this medication in the morning, it is ok to take the morning of surgery with a sip of water. pantoprazole DR (PROTONIX) 40 mg tablet Take morning of surgery with a sip of water, no other fluids omega-3s/dha/epa/fish oil/D3 (VITAMIN-D + OMEGA-3 ORAL) DO NOT TAKE MORNING OF SURGERY semaglutide (OZEMPIC) 0.25 mg or 0.5 mg(2 mg/1.5 mL) pen May resume after surgery Coenzyme Q10 (CO Q-10) 200 mg cap DO NOT TAKE MORNING OF SURGERY ascorbic acid, vitamin C, (VITAMIN C) 500 mg tablet DO NOT TAKE MORNING OF SURGERY Magnesium 250 mg tab DO NOT TAKE MORNING OF SURGERY pyridoxine, vitamin B6, (VITAMIN B-6) 100 mg tablet DO NOT TAKE MORNING OF SURGERY ALBUTEROL INHALATION Use Day of Surgery OXYGEN, HOME THERAPY, PRN if needed aspirin 325 mg tablet Follow Prescribers Instructions If you have any medication changes between receiving these instructions and your surgery date, please provide this updated information with the nurse who calls you the week day prior to your surgical procedure so we can update your list and provide you with updated instructions for the morning of your procedure.[facility]09-09-[facility]24 Note ORIGINAL EXAMINATION: CTA OF THE ABDOMEN AND PELVIS WITH CONTRAST 01/21/2024 2:26 pm: TECHNIQUE: CTA of the abdomen and pelvis was performed with the administration of intravenous contrast. Multiplanar reformatted images are provided for review. MIP images are provided for review. Automated exposure control, iterative reconstruction, and/or weight based adjustment of the mA/kV was utilized to reduce the radiation dose to as low as reasonably achievable. COMPARISON: None HISTORY: ORDERING SYSTEM PROVIDED HISTORY: Reason for Exam: INFERENAL ABDOMINAL AORTIC ANYRISM FINDINGS: CTA ABDOMEN: Abdominal aorta: 6.4 x 6.3 cm fusiform infrarenal abdominal aortic aneurysm with mural thrombus and mixing artifact. No surrounding inflammatory changes, sac de formation, or other findings of instability. Visceral arteries: The celiac, superior mesenteric, and renal arteries are patent. The inferior mesenteric artery is patent and originates off the aneurysm sac. CTA PELVIS: Moderate to severe iliac tortuosity without significant luminal stenosis. 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 Both common femoral arteries are patent with mild calcified atherosclerotic plaque. NON VASCULAR Evaluation of the abdominal and pelvic organs is limited on the current field of view. Visualized portions of the liver and spleen show no abnormality. No adrenal mass or significant nodularity. The pancreas is normal. No urinary calculi or hydronephrosis. No retroperitoneal adenopathy. No free intraperitoneal air or fluid. Visualized bowel loops show no obstruction. The prostate is enlarged with coarse calcification. No acute fracture or suspicious osseous lesion seen. There are moderate multilevel degenerative changes of the lumbar spine without high-grade bony canal stenosis. Degenerative changes of both sacroiliac joints. IMPRESSION: *6.4 cm fusiform infrarenal abdominal aortic aneurysm without CT evidence of instability. *2.1 cm fusiform left common iliac arterial aneurysm. RECOMMENDATIONS: *Short-term follow-up of aneurysm if endovascular or open repair is not being planned Interpreted by: Mauricio Henson Preliminary Report By: Mauricio Henson Electronically signed By Mauricio Henson Dictated Date: 01/21/2024 6:27:40 PM Prelim Date: 01/21/2024 6:38:38 PM Sign Date: 01/21/2024 6:38:38 PM Ordering Provider: [facility]05-15-[address] Keating [facility] September 25, 2022 1:12am Note Date/Time September 24, 2022 10:34 pm [facility] Medical Records Department [address] [place] [id number] Emergency Department Summary 09/24/22 MR#: [id number] Acct: [id number] Name: BRAVO FREEDMAN Rep #:[id number] : 1960 62 From: Aleksandar Keating MD PCP: Dr. Graham Priest MD Status:REG ER Location: ED HPI History of Present Illness Chief Complaint: Chest Pain Informant: patient and spouse/S.O. Onset/Context/Timing Onset: Hours (1) Activity at onset: sudden, onset, activity on onset and sleep Timing: Continuous Quality: Positive for Tightness Location: Substernal (Without radiation) Current Severity: Moderate Worsened By: Nothing Relieved By: Nothing Associated Symptoms: Positive for Palpitations; Negative for Nausea, Vomiting, Diaphoresis, Dyspnea, Cough or Lightheadedness Narrative Narrative: Patient was awakened out of his sleep about an hour prior to arrival with pounding racing heartbeat and chest tightness simultaneously. Has persisted since although he states that the pounding is less prominent now. No lightheadedness or syncope. No dyspnea. No recent illness, he states he ate a late dinner and went to bed and woke up an hour later with this, and that was anhour ago. Was working in the yard earlier today, was an otherwise uneventful day. Has a history of paroxysmal atrial fibrillation, states it has felt like this in the past, he has never been in atrial fibrillation and been asymptomaticto his knowledge. He states this does not happen very often, the last time it did he cannot remember, but it was more than a couple years ago. He is compliant with his medications which include aspirin and clopidogrel. He follows with the auto seat cover installer here although the one he was seen recently retiredand he has not seen one of the new ones yet. [facility] Medical History Abdominal aortic aneurysm Abdominal aortic aneurysm without rupture Atherosclerotic heart disease of [place] coronary artery without angina pectoris Chest pain Diabetes mellitus, type II Essential hypertension History of non-ST elevation myocardial infarction (NSTEMI) (09/24/18) History of supraventricular tachycardia HLD (hyperlipidemia) HTN (hypertension) NSTEMI (non-ST elevated myocardial infarction) Obesity (BMI 30-39.9) Obstructive sleep apnea Tobacco abuse Home Medications acetaminophen 325 mg tablet 650 mg PO Q6H PRN PRN Mild Pain (0-2/10) 09/25/18 [Rx Last Taken Unknown] aspirin 81 mg tablet,delayed release 81 mg PO DAILY@0800 09/25/18 [Rx Last Taken Unknown] coenzyme Q10 200 mg capsule (Co Q-10) 200 mg PO DAILY 10/11/18 [History Last Taken Unknown] magnesium oxide 250 mg PO DAILY 10/11/18 [History Last Taken Unknown] metformin 500 mg tablet,extended release 24 hr 1,000 mg PO DAILY 10/11/18 [History Last Taken Unknown] atorvastatin 80 mg tablet 80 mg PO DAILY 05/16/19 [History Last Taken Unknown] ascorbic acid (vitamin C) 500 mg capsule,extended release 500 mg PO DAILY 11/13/19 [History Last Taken Unknown] pyridoxine (vitamin B6) 50 mg capsule (Vitamin B-6) 50 mg PO DAILY 11/13/19 [History Last Taken Unknown] carvedilol 6.25 mg tablet 12.5 mg PO BID 03/18/21 [History Last Taken Unknown] losartan 25 mg tablet 25 mg PO BID #180 tabs 11/22/21 [Rx Last Taken Unknown] semaglutide 0.25 mg or 0.5 mg (2 mg/1.5 mL) subcutaneous pen injector (Ozempic) 0.25 mg subcut TURNER 01/24/22 [History Last Taken Unknown] albuterol sulfate 90 mcg/actuation aerosol inhaler (Ventolin HFA) 2 puff inhalation Q4H PRN PRN Wheezing #8.5 grams 02/23/22 [Rx Last Taken Unknown] pantoprazole 40 mg tablet,delayed release 40 mg PO DAILY 03/31/22 [History Last Taken Unknown] Allergy/AdvReac Type Severity Reaction Status Date / Time rosuvastatin [From Crestor] AdvReac Severe Severe Verified 09/24/22 22:17 myalgias (legs) codeine AdvReac Other Verified 09/24/22 22:17 Family History Mother Heart disease Pacemaker Father Stomach cancer Liver cancer Surgical History History of appendectomy History of thumb surgery Social History Smoking Status: Former smoker quit date: 09/24/18 pack-years: 40 alcohol intake: current alcohol intake frequency: 0-2 drinks per day Alcohol type: beer caffeine: No ROS ROS ED Constitutional Constitutional ED: Reports malaise; Denies chills or fever(s) Eyes Eyes: Denies change in vision or diplopia ENT ENT ED: Denies rhinorrhea or sore throat Cardiovascular Cardiovascular: Reports chest pain, palpitations and racing heartbeat; Denies lightheadedness or syncope Respiratory/Chest Respiratory/Chest: Denies cough or dyspnea Gastrointestinal Gastrointestinal: Denies abdominal pain, diarrhea, nausea or vomiting Genitourinary Genitourinary ED: Denies dysuria or hematuria Musculoskeletal Musculoskeletal: Denies back pain or neck pain Integumentary Denies abscess or rash Neurologic Neurologic: Denies headache(s), paresthesias or weakness Psychiatric Psychiatric: Denies anxiety or suicidal thoughts EXAM Physical Exam Const Vital Signs: 09/24/22 22:07 09/24/22 22:12 09/24/22 22:14 Temperature 98 F Temperature Source Temporal Pulse Rate 151 H 143 H Pulse Rate [1 (Initial Baseline)] Pulse Rate [2] Pulse Rate [3] Respiratory Rate 19 H 19 H Respiratory Rate [1 (Initial Baseline)] Respiratory Rate [2] Respiratory Rate [3] Respiratory Effort Normal Non-Labored Respiratory Pattern Normal Blood Pressure 86/49 L Blood Pressure [1 (Initial Baseline)] Blood Pressure [2] Blood Pressure [3] Blood Pressure Mean 61 Pulse Ox 93 94 Oxygen Delivery Method Nasal Cannula Room Air Oxygen Delivery Method [1 (Initial Baseline)] Oxygen Delivery Method [2] Oxygen Delivery Method [3] Oxygen Flow Rate (L/min) 2 09/24/22 22:17 09/24/22 22:42 09/24/22 22:35 Temperature Temperature Source Pulse Rate 130 H 136 H Pulse Rate [1 (Initial Baseline)] Pulse Rate [2] Pulse Rate [3] Respiratory Rate 13 8 L Respiratory Rate [1 (Initial Baseline)] Respiratory Rate [2] Respiratory Rate [3] Respiratory Effort Respiratory Pattern Blood Pressure 92/68 95/77 Blood Pressure [1 (Initial Baseline)] Blood Pressure [2] Blood Pressure [3] Blood Pressure Mean 76 Pulse Ox 93 94 Oxygen Delivery Method Nasal Cannula Nasal Cannula Room Air Oxygen Delivery Method [1 (Initial Baseline)] Oxygen Delivery Method [2] Oxygen Delivery Method [3] Oxygen Flow Rate (L/min) 2 6 6 09/24/22 22:44 09/24/22 22:44 09/24/22 22:50 Temperature Temperature Source Pulse Rate 78 Pulse Rate [1 (Initial Baseline)] 145 H Pulse Rate [2] 93 Pulse Rate [3] 84 Respiratory Rate 15 Respiratory Rate [1 (Initial Baseline)] 12 Respiratory Rate [2] 21 H Respiratory Rate [3] 20 H Respiratory Effort Respiratory Pattern Blood Pressure 116/79 Blood Pressure [1 (Initial Baseline)] 95/77 Blood Pressure [2] 84/34 L Blood Pressure [3] 133/78 H Blood Pressure Mean 91 Pulse Ox 92 Oxygen Delivery Method Nasal Cannula Nasal Cannula Oxygen Delivery Method [1 (Initial Baseline)] Nasal Cannula Oxygen Delivery Method [2] Nasal Cannula Oxygen Delivery Method [3] Non-Rebreather Oxygen Flow Rate (L/min) 4 4 09/24/22 22:54 09/24/22 23:00 09/25/22 00:00 Temperature Temperature Source Pulse Rate 79 79 70 Pulse Rate [1 (Initial Baseline)] Pulse Rate [2] Pulse Rate [3] Respiratory Rate 12 16 15 Respiratory Rate [1 (Initial Baseline)] Respiratory Rate [2] Respiratory Rate [3] Respiratory Effort Respiratory Pattern Blood Pressure 107/79 91/67 121/59 H Blood Pressure [1 (Initial Baseline)] Blood Pressure [2] Blood Pressure [3] Blood Pressure Mean 88 75 79 Pulse Ox 93 94 92 Oxygen Delivery Method Nasal Cannula Nasal Cannula Nasal Cannula Oxygen Delivery Method [1 (Initial Baseline)] Oxygen Delivery Method [2] Oxygen Delivery Method [3] Oxygen Flow Rate (L/min) 4 3 2 09/25/22 01:00 Temperature Temperature Source Pulse Rate 64 Pulse Rate [1 (Initial Baseline)] Pulse Rate [2] Pulse Rate [3] Respiratory Rate 15 Respiratory Rate [1 (Initial Baseline)] Respiratory Rate [2] Respiratory Rate [3] Respiratory Effort Respiratory Pattern Blood Pressure 107/64 Blood Pressure [1 (Initial Baseline)] Blood Pressure [2] Blood Pressure [3] Blood Pressure Mean 78 Pulse Ox 94 Oxygen Delivery Method Nasal Cannula Oxygen Delivery Method [1 (Initial Baseline)] Oxygen Delivery Method [2] Oxygen Delivery Method [3] Oxygen Flow Rate (L/min) 2 Positive well nourished and well developed General Appearance ED: well developed and NAD HEENT Reports moist mucous membranes normocephalic and atraumatic Eyes PERRL and EOMs intact bilaterally Neck full ROM and supple Resp normal respiratory effort and clear to auscultation bilaterally Cardio no murmurs Rate: tachycardic Rhythm: abnormal rhythm irregularly irregular GI non-tender and non-distended Auscultation: normoactive bowel sounds Palpation: soft Back/Spine no CVA tenderness General Back: other FROM Extremity normal to inspection General Extremety ED: Negative for edema, pulses abnormal or tenderness General Extremity: Negative for edema or pulses abnormal Neuro oriented x3, CN's II-XII intact bilaterally and no sensory deficits noted Sensorium / Orientation: awake and alert Motor Exam: strength 5/5 throughout Skin no rashes or lesions noted and no wounds MDM MDM MDM Narrative Medical decision making narrative: Patient presents awake, he appears to not feel well, he is in atrial fibrillation that is racing in the 140s, and he is hypotensive. Since this just started, electrocardioversion is indicated and recommended by myself. I discussed the risk and benefits with him and his family, give them a chance to ask any questions, the only relative issue here is that he last ate about 2.5 hours ago, so I am pretreating him with Zofran, but I think that the benefits of cardioverting him outweigh the risks given that he is hypotensive. He understands and is amenable to this, family is on board as well. Cardioversion successful see the procedure note. Subsequently patient was observed for couple hours, the initial troponin was 12 and the 2-hour delta was 16 for a delta of 4, this qualifies as negative, and the patient is stable for discharge. He has had no more chest discomfort. He does have a history of sleep apnea and he has had some hypoxemia but immediately reverses upon waking up, and has had no further ectopy or dysrhythmias or symptoms. Given all of this, my suspicion is that his chest tightness was a result of his RVR as opposed to unstable angina causing his dysrhythmia. Advised to follow-up closely with cardiology, he has an appointment with Syl agarwal on 10/12 which is 2 weeks away, I advised calling to see if they can move that up, and he and are comfortable with that plan. Lab Data Attestation: I reviewed the patient's lab results. Labs: Laboratory Results - last 24 hr 09/24/22 09/24/22 09/25/22 22:13 22:13 00:05 WBC 7.0 RBC 4.61 Hgb 14.2 Hct 43.4 MCV 94.1 H MCH 30.8 MCHC 32.7 RDW Std Deviation 46.2 H RDW Coeff of Frank 13.4 Plt Count 215 MPV 9.6 Immature Gran % (Auto) 0.400 Neut % (Auto) 55.0 Lymph % (Auto) 30.2 [place] % (Auto) 9.3 Eos % (Auto) 4.1 Baso % (Auto) 1.0 Absolute Neuts (auto) 3.9 Absolute Lymphs (auto) 2.12 Nucleated RBC % 0 Sodium 139 Potassium 3.5 Chloride 101 Carbon Dioxide 29.0 Anion Gap 9 BUN 15 Creatinine 1.02 Estim Creat Clear Calc 75.09 Est GFR (MDRD) Af Amer 95 Est GFR (MDRD) Non-Af 79 BUN/Creatinine Ratio 14.7 Glucose 132 H Calcium 8.8 Troponin I High Sens 12 16 Radiography Chest X-Ray - ED: 1 View, Read by ED Physician, Normal, Heart, Lungs, Mediastinum and No Acute Disease Diagnostic Testing: Clinical Impression(s) from Imaging Studies Chest X-Ray 09/24/22 22:55 IMPRESSION: No acute cardiopulmonary disease. Cardiomediastinal contours are slightly increased in size compared to the prior. Electronically Signed: Delmer Toledo MD at 23:25 EDT Reading Location ID and State: [address] [place] [id number] Tel , Service support , Rhythm Strip Rhythm Strip: A-fib Rate: 145 Ectopy: None EKG Initial EKG: Attestation: I personally reviewed and interpreted this EKG as follows: Interpretation: No Acute Injury Pattern, Atrial Fibrillation and Non-Specific ST Changes Prior EKG tracings: available for review Prior: Changed (Morphology is the same, but the rhythm is different; sinus rhythm on prior EKG 04/08/2022) Follow-up EKG: Attestation: I personally reviewed and interpreted this EKG as follows: Interpretation: Sinus Rhythm and No Acute Injury Pattern Comments: Post-cardioversion. Normal EKG, no acute ischemic abnormalities. Procedures Other Procedures Procedure(s): Electrocardioversion: After discussing pros and cons and obtaining consent from the patient and his family, patient was pretreated with fentanyl 50 mcg and Zofran 4 mg, followed by etomidate 10 mg, which was felt to be the least risky due to its quicker on and off times than midazolam, and propofol not indicated due to his hypotension. With sedation, synchronized biphasic cardioversion at 200 J was performed and successful after the first attempt. This resulted in immediate bilateral upper extremity myoclonus and he was diaphoretic, but his pulse immediately went from the 140s to the 90s and remained there, but his myoclonus limited our ability to reliably check blood pressure and pulse oximetry, we turned the oxygen up on the nasal cannula, and put him on a facemask to be cautious. When the myoclonus stopped, his blood pressure was reading 130s systolic, and pulse oximetry in the high 90s. Repeat EKG shows normal sinus rhythm without any ischemic abnormalities and he monitored until complete recovery. There were no complications and he tolerated this procedure well. Critical Care Time Critical Care Time: Yes Critical care time (excluding procedures): 30-74 minutes (35 minutes not including procedure time), Including time spent:, Discussing w/Patient &/or Family/Weld Technician and Performing Direct Patient Care at Bedside Discharge Plan Triage Chief Complaint: Chest Pain ED Provider: Aleksandar Keating Dx/Rx/DC Orders Clinical Impression: Atrial fibrillation with rapid ventricular response, Chest pain Instructions: AFib Dc Prescriptions: No Action coenzyme Q10 [Co Q-10] 200 mg capsule 200 mg PO DAILY magnesium oxide 250 mg magnesium tablet 250 mg PO DAILY atorvastatin 80 mg tablet 80 mg PO DAILY pyridoxine (vitamin B6) 50 mg capsule 50 mg capsule 50 mg PO DAILY ascorbic acid (vitamin C) 500 mg capsule, extended release 500 mg PO DAILY carvedilol 6.25 mg tablet 12.5 mg PO BID Ozempic 0.25 mg or 0.5 mg(2 mg/1.5 mL) pen injector 0.25 mg subcut TURNER pantoprazole 40 mg tablet,delayed release (DR/EC) 40 mg PO DAILY acetaminophen 325 MG tablet 650 mg PO Q6H PRN PRN (Reason: Mild Pain (0-2/10)) 0RF aspirin 81 MG tablet 81 mg PO DAILY@0800 0RF metformin 500 mg tablet extended release 24 hr 1,000 mg PO DAILY albuterol sulfate [Ventolin HFA] 90 mcg/actuation HFA aerosol inhaler 2 puff inhalation Q4H PRN PRN (Reason: Wheezing) Qty: 8.5 0RF losartan 25 mg tablet 25 mg PO BID Qty: 180 3RF Primary Care Provider: Graham Priest Referrals: Graham Priest MD [Primary Care Provider] - Syl Agarwal ARMED GUARD, ARMED GUARD-C [Med Staff - Adv Practice Prof] - As soon as possible (Or any available auto seat cover installer, call to see if they can move your 10/12 appointment upsooner. Any recurrent symptoms return to the ER in the meantime.) Disposition Disposition: Home, Self Care What to do if you have Problems For any increased pain, shortness of breath, bleeding, nausea or vomiting, chestpain, or any unexpected problems, contact your Primary Care Provider. Call [facility] ([phone]) or report to the closest Emergency Room. Call 911 if necessary. 09/25/22 0112 <Electronically signed by Aleksandar Keating MD> Cosigner Signature (if applicable): CC: CHIDI Agarwal; Dr. Graham Priest MD ~ Signed [facility] Work Phone: [phone] Evaluation note* Diagnosis Onset Date Resolution Status Atherosclerotic heart diseas e of [place] coronary artery without angina pectoris chronic HLD (hyperlipidemia) chronic Stented coronary artery September 24, 2018 karrie Cardiac murmur acute PAF (paroxysmal atrial fibrillation) acute Atherosclerotic heart diseas e of [place] coronary artery without angina pectoris chronic HLD (hyperlipidemia) chronic Stented [facility] Work Phone: Evaluation + Plan note No data available for this section [facility] Evaluation noteNo assessment information available [facility] Work Phone: Evaluation note* Diagnosis Onset Date Resolution Status Cardiac murmur acute PAF (paroxysmal atrial fibrillation) acute Atherosclerotic heart diseas e of [place] coronary artery without angina pectoris chronic HLD (hyperlipidemia) chronic [facility] Work Phone: Evaluation note* Diagnosis Encounter to establish care- Primary Other reasons for seeking consultation Paroxysmal atrial fibrillation (HCC) Atrial fibrillation Current use of intermediate manager anticoagulation Long-term (current) use of anticoagulants [facility]oxysmal atrial fibrillation (HCC)- Primary Atrial fibrillation [facility] Diagnosis Paroxysmal atrial fibrillation (HCC) Atrial fibrillation Paroxysmal atrial fibrillation (HCC)- Primary Atrial fibrillation Obstructive sleep apnea syndrome Obstructive sleep apnea (adult) (pediatric) Obesity, Class III, BMI >= 40 Morbid obesity Paroxysmal atrial fibrillation (HCC) Atrial fibrillation [facility] Diagnosis Paroxysmal atrial fibrillation (HCC) Atrial fibrillation Paroxysmal atrial fibrillation (HCC) Atrial fibrillation Paroxysmal atrial fibrillation (HCC) Atrial fibrillation [facility] Additional Instructions Your labs, EKG and chest x-ray were unremarkable tonight. Follow-up with your primary care physician. Return to the emergency department if you are having recurrent chest pain or feeling worse.[facility] Work Phone: Hospital Discharge instructions No data available for this section [facility] Progress note No data available for this section [facility] progress note Author DARREN Avila [facility] Note Date/Time March 04, 2025 1 2:14pm [facility] [address] [place] [address] OFFICE VISIT Date of Service: 03/04/25 MR#: [id number] Acct: [id number] Name: BRAVO FREEDMAN Rep #: [id number] Provider: Lynnette ford NP Age/Sex: 64/M [place] [facility] [place] [facility] [place] Status: Signed Assessment and Plan Assessment and Plan (1) Obstructive sleep apnea: Status: Chronic Plan: Failing CPAP therapy. His compliance download shows elevation in AHI and the nocturnal oximetry was unable to pull the data for the night of the study. He does have a history of CO2 elevation on recent lab work. He is also awakening with morning respiratory symptoms. Last echocardiogram did not show evidence ofpulmonary hypertension. He has had a change in condition with the recent cardiac ablation. Proceed with titration study for failure of CPAP at this time. (2) COPD (chronic obstructive pulmonary disease): Status: Chronic Qualifiers: COPD type: unspecified COPD Qualified Code(s): J44.9 - Chronic obstructive pulmonary disease, unspecified Comment: FEV1 is 66%, asthma COPD overlap syndrome Plan: Slight increase in respiratory symptoms, not exacerbating today. Increase use of albuterol inhaler and return to using PEP device. Continue with use of Wixela and Spiriva. Notify this practice if there are worsening respiratory symptoms. Mild COPD and asthma as well due to the response to the beta agonist. The degree of supplemental oxygen required upon exertion is disproportionate to the mild disease identified on PFT testing. I believe that there is a significant cardiovascular component to the patient's shortness of breath and exertional oxygen requirement. Continue to follow with cardiology, cardiology will be notified of calcific vascular disease seen on chest CT findings. The patient did receive some benefit in regards to respiratory symptoms with recent ablation. (3) Smoking greater than 40 pack years: Status: Acute Plan: Continue with complete smoking cessation. CTA from 02/2024 did not show evidence of nodules. LDCT repeated 02/2025 did not show the presence of nodules. The patient continues to meet criteria for the low-dose screening lung CT program and he is willing to continue with the recommendation of an annual LDCT. A repeat scan has been ordered for February 2026. (4) PAF (paroxysmal atrial fibrillation): Status: Chronic Comment: DCCV on 09/24/2022 in ER, 02/14/2023; Plan: Patient has had a history of paroxysmal atrial fibrillation and has recently underwent ablation. This can impact the control of the sleep disordered breathing. Await titration study. The patient understands the importance of obtaining control of sleep disordered breathing in regards to his history of A-fib. Orders: Orders Polysomnography with PAP Today G47.33 - Obstructive sleep apnea (adult) (pediatric) Low Dose CT Lung Screening 02/11/26 F17.210 - Nicotine dependence, cigarettes, uncomplicated Plan This note was generated with [employer] dictation software. It may contain incorrectwords, spelling, and punctuation that were not noted in checking the note beforesigning. Portions of this documentation have been copied and pasted from previous office visit notes to provide a cohesive continuity of the history. Thenote has been reviewed, edited, and updated, as necessary. Plan Details Follow Up: 2 to 3 months (LMR) HPI HPI Comments Details: Patient is a 64-year-old male who presents today for follow-up. He is ambulatory and currently utilizing 3 L/min of supplemental oxygen. Since last follow-up he has not had urgent care or ER visit for respiratory symptoms. He has not needed oral prednisone or antibiotics for respiratory illness. He carries a diagnosis of COPD. He had previous PFT from March 28, 2022 which showed moderate obstructive abnormality with a response to bronchodilators. At his last office visit with his PCP he was noted to be symptomatic requiring supplemental oxygen. He also carries comorbid diagnoses of chronic kidney disease, atrial fibrillation, history of LA, history of coronary artery disease. In review of previous laboratories from June 17, 2024 the patient did have an elevated CO2 at 32.5. He does also have a history of sleep apnea and his baseline PSG from March 27, 2018 shows very severe obstructive sleep apnea with severe hypoxemia. The patient ended up having a split-night test that night due to the severity of thedisease. The recommendation was to begin on CPAP 15 cm. He is using Wixela with good benefit. There has not been side effects such as sore throat or hoarseness. He has not required the use of his rescue inhaler. He does not use his nebulizer in a routine fashion. He does continue to use Sprivia. The patient continues to have shortness of breath with exertion. He reports thathe is now status post ablation and believes that it does help somewhat in regards to his shortness of breath. He has a cough on occasion that is productive with yellow to brown sputum. He will have wheeze in the morning along with chest tightness and pain in the mornings with awakening. He reports that it feels like the PAP device is pushing too much pressure in his chest. Heindicates that upon awakening in the morning he is very dry initially and then he has significant drainage running down the back of his throat. This will cause a productive cough with clear sputum. He reports that he does wheeze. Heindicates that chest pain is present this morning but has has not experienced asmuch now, this typically resolves within a few minutes. He denies headaches. He does report that nocturia occurs x 2. He indicates that his mouth is dry. He reports that he is sleeping about 11 hours/day. He indicates that oxygen therapy is used at 3 L/min with exertion. Smoking history includes starting at age 13, quit in 2019, smoking 2.5 ppd. 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 He reports no history of asthma. He does have cats in home and carpet for rosy. Ablation for his A-fib in [place] on January 05. He reports that it helped with his breathing and palpitations. He is planning to see the local cardiology group next week. 6-minute walk test from September 04, 2024 shows the requirement of 3 L/min of pulsed dose supplemental oxygen with exertion. PFT from September 02, 2024 shows partially reversible mild large airway obstructiveventilatory defect with associated air trapping and symmetric reduction in diffusion capacity. There is significant reversibility with use of beta agoniston PFT. He did obtain his pneumonia vaccine yesterday and plans to receive his RSV vaccine in a few weeks. Documentation reviewed with patient today includes: Nocturnal oximetry from February 21, 2025 showed insufficient data to produce report. Low-dose screening lung CT from February 23, 2025 showed no pulmonary nodules or masses. There is calcific vascular disease. There is pleural-parenchymal scarring of the right middle lobe in the inferior segment of the lingula. Compliance download from March 01, 2025 shows use of CPAP 17 cm with minimal air leak and AHI at 5.7. 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: No DME Vendor: pap- o2 [facility] Accompanied by: Self Is patient in pain?: No Allergies rosuvastatin (From Crestor) Adverse Reaction (Severe, Verified 03/04/25 10:43) Severe myalgias (legs) codeine Adverse Reaction (Verified 03/04/25 10:43) Other Medications ?Medication ?Instructions ?Recorded ?Confirmed ?Type aspirin 81 mg tablet,delayed 81 mg PO DAILY@0800 heart health 09/25/18 03/04/25 Rx release atorvastatin 80 mg tablet 80 mg PO DAILY cholesterol 0 05/16/19 03/04/25 History ascorbic acid (vitamin C) 500 mg 500 mg PO DAILY vitam in 11/13/19 03/04/25 History capsule,extended release losartan 25 mg tablet 25 mg PO BID blood pressure #180 11/22/21 03/04/25 Rx tabs albuterol sulfate 90 mcg/actuation 2 puff inhalation Q 4H PRN PRN 02/23/22 03/04/25 Rx aerosol inhaler (Ventolin HFA) Wheezing #8.5 grams pantoprazole 40 mg tablet,delayed 40 mg PO DAILY reflu x 03/31/22 03/04/25 History release alfuzosin 10 mg tablet,extended 10 mg PO DAILY prostat e 02/13/23 03/04/25 Histor y release 24 hr metoprolol tartrate 50 mg tablet 50 mg PO BID blood pr essure #60 02/15/23 03/04/25 Rx tabs blood sugar diagnostic (Accu-Chek 11/28/23 03/04/25 H istory Guide test strips) lancets (Accu-Chek Softclix 11/28/23 03/04/25 History Lancets) cholecalciferol (vitamin D3) 125 125 mcg PO QDAY vitam in 12/07/23 03/04/25 History mcg (5,000 unit) capsule coenzyme Q10 200 mg capsule (Co 200 mg PO DAILY supple ment 03/07/24 03/04/25 History Q-10) magnesium 250 mg tablet 500 mg PO QDAY supplement 03/04/25 History amlodipine 10 mg tablet 10 mg PO DAILY #90 tabs 12/09/0403/04/25 Rx furosemide 20 mg tablet (Lasix) 20 mg PO DAILY #90 tab s 04/16/24 03/04/25 Rx guaifenesin 1,200 mg tablet, 1,200 mg PO BID #20 tabs 04/16/24 03/04/25 Rx extended release 12 hr (Mucus Relief ER) albuterol sulfate 0.63 mg/3 mL 0.63 mg inhalation TID PRN 04/25/24 03/04/25 History solution for nebulization pyridoxine (vitamin B6) 100 mg 100 mg PO QDAY 04/25/24 03/04/25 History tablet sertraline 50 mg tablet 50 mg PO QDAY 04/25/2403/04 History tiotropium bromide 2.5 2 puff inhalation QDAY #4 gr ams 09/16/24 03/04/25 Rx mcg/actuation mist for inhalation (Spiriva Respimat) apixaban 5 mg tablet (Eliquis) 5 mg PO BID blood thinn er #180 tabs 10/20/24 03/04/25 Rx acetaminophen 325 mg tablet 325 mg PO Q6H PRN PRN Mild Pain 10/22/24 03/04/25 History (0-06/23) dulaglutide 0.75 mg/0.5 mL 0.75 mg subcut QWEEK 03/04/25 History subcutaneous pen injector (Trulicity) fluticasone 500 mcg-salmeterol 50 1 inh inhalation BID #60 ea 02/03/25 03/04/25 Rx mcg/dose blistr powdr for inhalation (Wixela Inhub) isosorbide mononitrate 30 mg 30 mg PO DAILY #90 tabs 0 02/05/25 03/04/25 Rx tablet,extended release 24 hr PFSH Medical History Pneumonia Obstructive sleep apnea AAA (abdominal aortic aneurysm) Afib PAF (paroxysmal atrial fibrillation) Abdominal aortic aneurysm without rupture Essential hypertension Abdominal aortic aneurysm Tobacco abuse History of non-ST elevation myocardial infarction (NSTEMI) (09/24/18) Atherosclerotic heart disease of [place] coronary artery without angina pectoris NSTEMI (non-ST elevated myocardial infarction) History of supraventricular tachycardia Diabetes mellitus, type II Obesity (BMI 30-39.9) HLD (hyperlipidemia) HTN (hypertension) Chest pain Surgical History History of cardioversion History of thumb surgery History of appendectomy Stented coronary artery (09/24/18) Family History Mother Heart disease Pacemaker Father Stomach cancer Liver cancer Brother Cancer lung Social History Smoking Status: Former smoker quit date: 09/24/18 pack-years: 40 how long ago did patient quit smokin alcohol intake: current alcohol intake frequency: 0-2 drinks per day Alcohol type: beer substance use type: marijuana caffeine: No Review of Systems Resp Respiratory: Yes as per HPI Coding Level of Care Code Off vis,est,level 4 Diagnoses Obstructive sleep apnea G47.33 Chronic obstructive pulmonary disease, unspecified COPD type J44.9 COPD type: unspecified COPD Smoking greater than 40 pack years F17.210 PAF (paroxysmal atrial fibrillation) I48.0 03/04/25 1133 <Electronically signed by Lynnette cornejo ARMED GUARD-C> Date _ Lynnette Avila ARMED GUARD-C Cosigner Signature: Date (if applicable) CC: CHIDI Agarwal ~ [facility] Work Phone: Rejkez for referral (narrative)No reason for referral information availableBlUCSF [facility] Work Phone: Reason for visit Narrative* MRI/CT (Routine) - Closed Specialty Diagnoses / Procedures Referred By Contac t Referred To Contact CT IMAGING Diagnoses Paroxysmal atrial fibrillation (HCC) Procedures CT PULMONARY VEIN W IVCON CT HEART CONTRAST EVAL CARDIAC STRUCTURE&MORPH Tiara Rodriguez MD [address] [place] [address] Phone: tel: fax: [place] [id number] Referral ID Status Reason Start Date Expiration Date V isits Requested Visits Authorized [id number] Closed Auto-Generate d Referral 12/22/2024 01/21/2025 1 1 [facility] Summary Purpose Family History Relationship Condition Age at Onset Recorded Date/T karri mother Cardiac disease Unknown Presence of cardiac pacemaker Unknown father Malignant neoplasm of stomach Unknown Malignant neoplasm of liver Unknown Relationship Condition Age at Onset Recorded Date/T karri mother Cardiac disease Unknown Presence of cardiac pacemaker Unknown father Malignant neoplasm of stomach Unknown Malignant neoplasm of liver Unknown brother Malignant neoplasm Unknown Advance Directives Advance Directive Response Recorded Date/ Time Living Will No April 08, 2 022 4:13pm Power of Community Health Promoter No April 08, 2022 4:13pm Advance Directive Response Recorded Date/ Time Living Will No September 24, 2022 1 0:14pm Power of Community Health Promoter No September 24, 2022 10:14pm Date Activated Date Inactivated Comments 02/23/2024 7:30 PM 02/26/2024 1:36 PM Question Answer Comments Full Code Order Discussed With: Patient Date Activated Date Inactivated Comments 02/23/2024 7:30 PM 02/26/2024 1:36 PM Question Answer Comments Full Code Order Discussed With: Patient Chief Complaint and Reason for Visit Chief Complaint OVERDUE F/U CP 1 Y FU (DJN PT) CHEST PAIN Reason for Visit Atherosclerotic hear t disease of [place] coronary artery without angina pectoris HLD (hyperlipidemia) Stented coronary artery Cardiac murmur PAF (paroxysmal atrial fibrillation) Atherosclerotic heart disease of [place] coronary artery without angina pectoris HLD (hyperlipidemia) Stented coronary artery Chief Complaint OVERDUE F/U CP 1 Y FU (DJN PT) CHEST PAIN CARDIAC MURMUR Reason for Visit Atherosclerotic hear t disease of [place] coronary artery without angina pectoris HLD (hyperlipidemia) Stented coronary artery Cardiac murmur PAF (paroxysmal atrial fibrillation) Atherosclerotic heart disease of [place] coronary artery without angina pectoris HLD (hyperlipidemia) Stented coronary artery Chief Complaint AORTIC ANEURYSM CP Chief Complaint CP 6 M FU Reason for Visit Cardiac murmur PAF (paroxysmal atrial fibrillation) Atherosclerotic heart disease of [place] coronary artery without angina pectoris HLD (hyperlipidemia) Chief Complaint Admit Date CP May 27, 2024 7 :19am CP May 27, 2024 5 :52pm 8 W FU June 13, 2024 2 :38pm DYSPNEA August 05, 2024 8:5 2am COPD September 02, 2024 6:3 5am COPD September 04, 2024 12: 00pm COPD September 05, 2024 12: 19pm Reason for Visit Admit Date POON (dyspnea on exertion) June 13, 2024 2:38pm Abdominal aortic aneurysm June 13, 2024 2:38pm Atherosclerotic heart diseas e of [place] coronary artery without angina pectoris June 13, 2024 2:38pm History of supraventricular tachycardia June 13, 2024 2:38pm HLD (hyperlipidemia) June 13, 2024 2:38pm HTN (hypertension) Ofelia 31st, 2025 2 :38pm PAF (paroxysmal atrial fibrillation) [facility] 2024 2:38pm Obstructive sleep apnea August 05, 2024 8:52am Smoking greater than 40 pack years August 05, 2024 8:52am COPD (chronic obstructive pulmonary dise ase) August 05, 2024 8:52am Chief Complaint Admit Date CP May 27, 2024 7 :19am CP May 27, 2024 5 :52pm 8 W FU June 13, 2024 2 :38pm DYSPNEA August 05, 2024 8:5 2am COPD September 02, 2024 6:3 5am COPD September 04, 2024 12: 00pm COPD September 05, 2024 12: 19pm 6 wk fu September 24, 2024 1:09p m Reason for Visit Admit Date POON (dyspnea on exertion) June 13, 2024 2:38pm Abdominal aortic aneurysm June 13, 2024 2:38pm Atherosclerotic heart diseas e of [place] coronary artery without angina pectoris June 13, 2024 2:38pm History of supraventricular tachycardia June 13, 2024 2:38pm HLD (hyperlipidemia) June 13, 2024 2:38pm HTN (hypertension) June 13, 2024 2 :38pm PAF (paroxysmal atrial fibrillation) [facility] 2024 2:38pm Obstructive sleep apnea August 05, 2024 8:52am Smoking greater than 40 pack years August 05, 2024 8:52am COPD (chronic obstructive pulmonary dise ase) August 05, 2024 8:52am Obstructive sleep apnea September 24, 2024 1 :09pm Smoking greater than 40 pack years September [id number] 1:09pm COPD (chronic obstructive pulmonary dise ase) September 24, 2024 1:09pm Chief Complaint Admit Date DYSPNEA August 05, 2024 8:5 2am COPD September 02, 2024 6:3 5am COPD September 04, 2024 12: 00pm COPD September 05, 2024 12: 19pm 6 wk fu September 24, 2024 1:09p m 6 M FU October 22, 2024 9:20 am Reason for Visit Admit Date Obstructive sleep apnea August 05, 2024 8:52am Smoking greater than 40 pack years August 05, 2024 8:52am COPD (chronic obstructive pulmonary dise ase) August 05, 2024 8:52am Obstructive sleep apnea September 24, 2024 1 :09pm Smoking greater than 40 pack years September [id number] 1:09pm COPD (chronic obstructive pulmonary dise ase) September 24, 2024 1:09pm POON (dyspnea on exertion) October 22 9:20am Abdominal aortic aneurysm October 22 9:20am Atherosclerotic heart diseas e of [place] coronary artery without angina pectoris October 22, 2024 9:20am History of supraventricular tachycardia October 22, 2024 9:20am HLD (hyperlipidemia) October 22, 2024 9:2 0am HTN (hypertension) October 22, 2024 9:20 am PAF (paroxysmal atrial fibrillation) Oct 9:20am Chief Complaint Admit Date 6 wk fu September 24, 2024 1:09p m 6 M FU October 22, 2024 9:20 am 3 M FU January 21, 2025 9:07am Reason for Visit Admit Date Obstructive sleep apnea September 24, 2024 1 :09pm Smoking greater than 40 pack years September [id number] 1:09pm COPD (chronic obstructive pulmonary dise ase) September 24, 2024 1:09pm POON (dyspnea on exertion) October 22 9:20am Abdominal aortic aneurysm October 22 9:20am Atherosclerotic heart diseas e of [place] coronary artery without angina pectoris October 22, 2024 9:20am History of supraventricular tachycardia October 22, 2024 9:20am HLD (hyperlipidemia) October 22, 2024 9:2 0am HTN (hypertension) October 22, 2024 9:20 am PAF (paroxysmal atrial fibrillation) Oct 9:20am Obstructive sleep apnea January 21, 2025 9:07am Smoking greater than 40 pack years [facility] 2024 9:07am COPD (chronic obstructive pulmonary dise ase) January 21, 2025 9:07am Chief Complaint Admit Date 3 M FU January 21, 2025 9:07am HX NICOTINE DEPENDENCE February 23 8:15am 6 wk FU March 04, 2025 1 0:37am LABS DID NOT SEE ORDER March 13 10:18am PVD, AAA REPAIR W/ENDOGRAFT , AAA, HTN N ovember 2024 10:46am Reason for Visit Admit Date Smoking greater than 40 pack years Septe mber 2024 9:07am COPD (chronic obstructive pulmonary dise ase) January 21, 2025 9:07am Obstructive sleep apnea January 21, 2025 9:07am PAF (paroxysmal atrial fibrillation) Sep tember 2024 9:07am Smoking greater than 40 pack years Octob er 2024 10:37am COPD (chronic obstructive pulmonary dise ase) March 04, 2025 10:37am Obstructive sleep apnea March 04 10:37am PAF (paroxysmal atrial fibrillation) Oct [place] 2024 10:37am Additional Source Comments (unrecognized sect ion and content) No Status Records FoundNo Status Records FoundNo Status Records FoundNo Status Records FoundNo Status Records FoundNo Status Records FoundNo Status Records FoundNo Status Records Found INFORMATION SOURCE (unrecogn ized section and content) DATE CREATED AUTHOR 06/02/2021 [facility] DATE CREATED AUTHOR AUTHOR'S ORGANIZ ATION 01/17/2024 [facility] ([place]) DATE CREATED AUTHOR AUTHOR'S ORGANIZ ATION 01/24/2024 [facility] DATE CREATED AUTHOR AUTHOR'S ORGANIZ ATION 08/01/2024 [facility] DATE CREATED AUTHOR AUTHOR'S ORGANIZ ATION 02/16/2025 [facility] DATE CREATED AUTHOR AUTHOR'S ORGANIZ ATION 02/25/2025 [facility] DATE CREATED AUTHOR AUTHOR'S ORGANIZ ATION 03/12/2025 [facility] DATE CREATED AUTHOR AUTHOR'S ORGANIZ ATION 03/26/2025 [facility] Goals (unrecognized section and content) Goals may be documented in a n alternate sectionGoals may be documented in an alternate sectionGoals may be documented in an alternate sectionGoals may be documented in an alternate section No data available for this sectionGoals may be documented in an alternate sectionGoals may be documented in an alternate sectionGoals may be documented in an alternate sectionGoals may be documented in an alternate sectionGoals may be documented in an alternate section Care Teams (unrecognized sec tion and content) Team Status: Active Member Role Status Dates Dr. Graham Priest MD Family Provider Active Dr. Graham Priest MD Primary Care Provider Active Team Status: Inactive Member Role Status Dates Dr. Graham Priest MD Primary Care Provider Active Dr. Kyung Stiles MD Attending Provider, Referring Provider Active Team Status: Inactive Member Role Status Dates Dr. Graham Priest MD Primary Care Provider Active Dr. Aleksandar Keating MD Emergency Provider Active Team Status: Inactive Member Role Status Dates Dr. Graham Priest MD Primary Care Provider, Referrin g Provider Active Syl Agarwal ARMED GUARD, ARMED GUARD-C Attending Provider Active Team Status: Inactive Member Role Status Dates Dr. Graham Priest MD Primary Care Provider Active Dr. Aleksandar Keating MD Attending Provider, Emergency Provider Active Team Status: Inactive Member Role Status Dates Dr. Graham Priest MD Primary Care Provider Active Dr. Abdulkadir Scruggs MD Attending Provider, Referr ing Provider Active Well Head Pumper Relationship Specialty Start Date End Date Graham Priest MD [address] [place] [address] PCP - General Internal Medicine 02/04/24 Team Status: Active Member Role Status Dates Dr. Graham Priest MD Primary Care Provider Active Team Status: Inactive Member Role Status Dates Dr. Graham Priest MD Primary Care Provider Active Start: May 27, 2024 End: May 27, 2024 Syl Agarwal ARMED GUARD, ARMED GUARD-C Attending Provider Active S tart: May 27, 2024 End: May 27, 2024 Syl Agarwal ARMED GUARD, ARMED GUARD-C Referring Provider Active S tart: May 27, 2024 End: May 27, 2024 Team Status: Active Member Role Status Dates Dr. Graham Priest MD Primary Care Provider Active Start: May 27, 2024 Syl Agarwal ARMED GUARD, ARMED GUARD-C Referring Provider Active S tart: May 27, 2024 Syl Agarwal ARMED GUARD, ARMED GUARD-C Other Provider Active Start : May 27, 2024 Dr. Lee Elise MD Attending Provider Active S tart: May 27, 2024 Team Status: Inactive Member Role Status Dates Dr. Graham Priest MD Primary Care Provider Active Start: June 13, 2024 End: June 13, 2024 Dr. Graham Priest MD Referring Provider Active Start: June 13, 2024 End: June 13, 2024 Syl Agarwal NP ARMED GUARD-C Attending Provider Active S tart: June 13, 2024 End: June 13, 2024 Team Status: Inactive Member Role Status Dates Dr. Graham Priest MD Primary Care Provider Active Start: August 05, 2024 End: August 05, 2024 Dr. Graham Priest MD Referring Provider Active Start: August 05, 2024 End: August 05, 2024 SIVA MtzC Attending Provider Active Start: August 05, 2024 End: August 05, 2024 Team Status: Inactive Member Role Status Dates Dr. Graham Priest MD Primary Care Provider Active Start: September 02, 2024 End: September 02, 2024 Lynnette Avila NP-C Attending Provider Active Start: September 02, 2024 End: September 02, 2024 Lynnette Avila NP-Mildred Referring Provider Active Start: September 02, 2024 End: September 02, 2024 Team Status: Inactive Member Role Status Dates Dr. Graham Priest MD Primary Care Provider Active Start: September 04, 2024 End: September 04, 2024 SIVA MtzC Attending Provider Active Start: September 04, 2024 End: September 04, 2024 Lynnette Avila NP-Mildred Referring Provider Active Start: September 04, 2024 End: September 04, 2024 Team Status: Active Member Role Status Dates Dr. Graham Priest MD Primary Care Provider Active Start: September 05, 2024 Lynnette Avila NP-C Referring Provider Active Start: September 05, 2024 CHIDI Mtz Other Provider Active St art: September 05, 2024 Dr. George Lee DO Attending Provider Active S tart: September 05, 2024 Team Status: Inactive Member Role Status Dates Dr. Graham Priest MD Primary Care Provider Active Start: September 24, 2024 End: September 24, 2024 Dr. Graham Priest MD Referring Provider Active Start: September 24, 2024 End: September 24, 2024 Lynnette M Rufener , ARMED GUARD-C Attending Provider Active Start: September 24, 2024 End: September 24, 2024 Team Status: Inactive Member Role Status Dates Dr. Graham Priest MD Primary Care Provider Active Start: October 22, 2024 End: October 22, 2024 Dr. Graham Priest MD Referring Provider Active Start: October 22, 2024 End: October 22, 2024 Syl Agarwal ARMED GUARD, ARMED GUARD-C Attending Provider Active S tart: October 22, 2024 End: October 22, 2024 Well Head Pumper Relationship Specialty Start Date End Date Graham Priest MD [address] [place] [address] PCP - General Internal Medicine 02/04/24 Syl Agarwal, AGRICULTURAL AIRCRAFT PILOT.POLISHING MACHINE TENDER [address] [address] Cardiology 10/29/24 Well Head Pumper Relationship Specialty Start Date End Date Graham Priest MD [address] [place] [address] PCP - General Internal Medicine 02/04/24 Syl Agarwal, AGRICULTURAL AIRCRAFT PILOT.POLISHING MACHINE TENDER [address] [address] Cardiology 10/29/24 Well Head Pumper Relationship Specialty Start Date End Date Mary Landeros MD [address] [place] [address] PCP - General Internal Medicine 01/01/25 Syl Agarwal, AGRICULTURAL AIRCRAFT PILOT.POLISHING MACHINE TENDER [address] [address] Cardiology 10/29/24 Well Head Pumper Relationship Specialty Start Date End Date Roof, Syl H, AGRICULTURAL AIRCRAFT PILOT.POLISHING MACHINE TENDER [address] [facility] [address] [place], [place] [id number] Cardiology 10/29/24 Well Head Pumper Relationship Specialty Start Date End Date Mary Landeros MD [address] [place] [address] PCP - General Internal Medicine 01/01/25 Syl Agarwal, AGRICULTURAL AIRCRAFT PILOT.POLISHING MACHINE TENDER [address] [facility] [address] [place], [place] [address] Cardiology 10/29/24 Team Status: Active Member Role/Relationship Status Dates Dr. Graham Priest MD Primary Care Provider Active Team Status: Inactive Member Role/Relationship Status Dates Dr. Graham Priest MD Primary Care Provider Active Start: September 24, 2024 End: September 24, 2024 Dr. Graham Priest MD Referring Provider Active Start: September 24, 2024 End: September 24, 2024 SIVA MtzC Attending Provider Active Start: September 24, 2024 End: September 24, 2024 Team Status: Inactive Member Role/Relationship Status Dates Dr. Graham Priest MD Primary Care Provider Active Start: October 22, 2024 End: October 22, 2024 Dr. Graham Priest MD Referring Provider Active Start: October 22, 2024 End: October 22, 2024 Syl Agarwal NP, ARMED GUARD-C Attending Provider Active S tart: October 22, 2024 End: October 22, 2024 Team Status: Inactive Member Role/Relationship Status Dates Dr. Graham Priest MD Primary Care Provider Active Start: January 21, 2025 End: January 21, 2025 Dr. Graham Priest MD Referring Provider Active Start: January 21, 2025 End: January 21, 2025 CHIDI Mtz Attending Provider Active Start: January 21, 2025 End: January 21, 2025 Team Status: Active Member Role/Relationship Status Dates Dr. Mary Landeros MD Primary care physician Activ e Team Status: Inactive Member Role/Relationship Status Dates Dr. Graham Priest MD Primary care physician Active Start: January 21, 2025 End: January 21, 2025 Dr. Graham Priest MD Referring Provider Active Start: January 21, 2025 End: January 21, 2025 SIVA MtzC Attending physician Active Start: January 21, 2025 End: January 21, 2025 Team Status: Inactive Member Role/Relationship Status Dates CHIDI Mtz Attending physician Active Start: February 23, 2025 End: February 23, 2025 CHIDI Mtz Referring Provider Active Start: February 23, 2025 End: February 23, 2025 Dr. Mary Landeros MD Primary care physician Activ e Start: February 23, 2025 End: February 23, 2025 Team Status: Inactive Member Role/Relationship Status Dates Dr. Graham Priest MD Referring Provider Active Start: March 04, 2025 End: March 04, 2025 SIVA MtzC Attending physician Active Start: March 04, 2025 End: March 04, 2025 Dr. Mary Landeros MD Primary care physician Activ e Start: March 04, 2025 End: March 04, 2025 Team Status: Active Member Role/Relationship Status Dates Dr. Mary Landeros MD Primary care physician Activ e Start: March 13, 2025 Dr. Kyung Stiles MD Attending physician Active Start: March 13, 2025 Dr. Kyung Stiles MD Referring Provider Active Start: March 13, 2025 Team Status: Inactive Member Role/Relationship Status Dates Dr. Mary Landeros MD Primary care physician Activ e Start: March 18, 2025 End: March 18, 2025 Dr. Kyung Stiles MD Attending physician Active Start: March 18, 2025 End: March 18, 2025 Dr. Kyung Stiles MD Referring Provider Active Start: March 18, 2025 End: March 18, 2025 Source Comments (unrecognize d section and content) In the event this informatio n is protected by the [facility] Confidentiality of Alcohol and Drug Abuse Patient Records regulations: The Federal rules restrict any use of the information to criminally investigate or prosecute any alcohol or drug abuse patient.[facility] the event this information is protected by the Federal Confidentiality of Alcohol and Drug Abuse Patient Records regulations: The Federal rules restrict any use of the information to criminally investigate or prosecute any alcohol or drug abuse patient.[facility] the event this information is protected by the Federal Confidentiality of Alcohol and Drug Abuse Patient Records regulations: The Federal rules restrict any use of the information to criminally investigate or prosecute any alcohol or drug abuse patient.[facility] the event this information is protected by the Federal Confidentiality of Alcohol and Drug Abuse Patient Records regulations: The Federal rules restrict any use of the information to criminally investigate or prosecute any alcohol or drug abuse patient.[facility] the event this information is protected by the Federal Confidentiality of Alcohol and Drug Abuse Patient Records regulations: The Federal rules restrict any use of the information to criminally investigate or prosecute any alcohol or drug abuse patient.[facility] the event this information is protected by the Federal Confidentiality of Alcohol and Drug Abuse Patient Records regulations: The Federal rules restrict any use of the information to criminally investigate or prosecute any alcohol or drug abuse patient.[facility] Reason for Visit (unrecogniz ed section and content) Reason Comments Consult Referred for SVT vs atrial tachycardia ablation Reason Comments Patient Update Reason Comments Pre-procedure instructions for AF ablati on Reason Comments Follow Up H&P FOR RECORDS PERTAINING TO PATIENTS WHO ARE OR HAVE BEEN ENROLLED IN A CHEMICAL DEPENDENCY/SUBSTANCEABUSE PROGRAM, SOME INFORMATION MAY BE OMITTED. This clinical summary was aggregated from multiple sources. Caution should be exercised in using it in the provision of clinical care. This summary normalizes information from multiple sources, and as a consequence, information in this document may materially change the coding, format and clinical context of patient data. In addition, data may be omitted in some cases. CLINICAL DECISIONS SHOULD BE BASED ON THE PRIMARY CLINICAL RECORDS. [facility] [employer] provides no warranty or guarantee of the accuracy or completeness of information in this document.
== END | disposition home or self-care (01) ==
LOC: SL 20:00
PROVIDERS: PCP Student in an Organized Health Care Education/Training Program; Referring Provider Nurse Practitioner Family; Visit Provider Nurse Practitioner Family
DX: G47.33 Obstructive sleep apnea (adult) (pediatric) (principal)
CPT/HCPCS: 95811

== ENCOUNTER → 2025-04-07 | Outpatient (CLI) | payer MEDICAID, SELFPAY ==
--- NOTE | 2025-04-07 13:25 | CT_ITS ---
PROCEDURE: CTA ABD/PELVIS W/WO CONTRAST 04/07/2025 REASON FOR EXAM: PVD, AAA REPAIR W/ENDOGRAFT, AAA, HTN TECHNIQUE: Procedure Code: [id number] Modality: CT Procedure: CTA ABD/PELVIS W/WO CONTRAST Multiplanar Sagittal and Coronal images were obtained. 3D post processing was performed CONTRAST: Isovue 370 VOLUME: 100 mL One or more dose reduction techniques were used (e.g., Automated exposure control, adjustment of the mA and/or kV according to patient size, use of iterative reconstruction technique). RADIATION DOSE SUMMARY: CTDlvol: 37.82 mGy DLP: 1282.07 mGycm COMPARISON: 02/23/2024 FINDINGS: AORTA: Stable size/appearance of the infrarenal abdominal aortic aneurysm status post endovascular stent graft repair. The excluded aneurysm sac currently measures up to 6 x 5.7 cm, stable. No evidence for endoleak. Patent stent graft. Major branches of the celiac axis, SMA and TIM, and bilateral iliac arteries are patent, normal in caliber. Left renal artery is patent and normal in caliber. Diminutive/stenotic and weakly opacified right renal artery with atrophy of the right kidney, which as before may be sequelae of right renal artery stenosis either from atherosclerotic stenosis or stent graft placement. NONVASCULAR FINDINGS: Enlarged prostate with parenchymal calcification, and circumferential bladder wall thickening/hypertrophy. No other significant, acute or active inflammatory incidental findings in the abdomen/pelvis. Multilevel degenerative changes of the spine. CT/CTA Abd/Pelvis W/WO Contrast IMPRESSION: Stable infrarenal abdominal aortic aneurysm status post endovascular stent shaniqua t repair. No evidence for endoleak or stent graft complication. Ancillary findings as noted above. Reading Location: [id number]
== END | disposition home or self-care (01) ==
LOC: CT 13:18
PROVIDERS: PCP Student in an Organized Health Care Education/Training Program; Referring Provider Surgery Vascular Surgery; Visit Provider Surgery Vascular Surgery
DX: I73.9 Peripheral vascular disease, unspecified (principal); E11.9 Type 2 diabetes mellitus without complications; I71.43 Infrarenal abdominal aortic aneurysm, without rupture; Z95.828 Presence of other vascular implants and grafts; I10 Essential (primary) hypertension; I25.2 Old myocardial infarction; Z87.891 Personal history of nicotine dependence; E78.70 Disorder of bile acid and cholesterol metabolism, unspecified
CPT/HCPCS: 74174; Q9967

== ENCOUNTER → 2025-05-12 | Outpatient (CLI) | payer MEDICAID, SELFPAY ==
--- NOTE | 2025-05-12 08:43 | ECHOCS_ITS ---
Reason For Study Reason For Study: Dyspnea/SOB Procedure This was a 2D Doppler, Color Flow transthoracic echocardiogram. Contrast injection was performed. Exam performed in department. Left Ventricle Normal LV size. The left ventricular ejection fraction is 60 %. Stage 1 diastolic dysfunction. Anterior [place] : Hypokinetic. Lateral [place] : Hypokinetic. The rest of the wall segments are normal. There are regional wall motion abnormalities as specified. Right Ventricle Normal RV size. Normal systolic function. Atria The left atrium is mildly enlarged. Normal right atrium. Mitral Valve There is Mild focal posterior mitral annular calcification. Trivial mitral valve insufficiency. Tricuspid Valve Normal tricuspid valve. Mild (1+) tricuspid valve insufficiency. Pulmonary artery systolic pressure is 34 mmHg. Aortic Valve Trisinus/trileaflet aortic valve. Pulmonic Valve Normal pulmonic valve. Great Vessels Normal sized aortic root. The inferior vena cava is dilated. and partially collapses. Pericardium/Pleural No pericardial effusion. Medication Diluted definity 2.5ml given slow IV push to enhance endocardial definition. MMode/2D Measurements & Calculations LVIDd: 4.4 cm IVSd: 1.2 cm Ao root diam: 3.4 cm LVIDs: 2.8 cm LVPWd: 0.94 cm RVDd: 3.9 cm FS: 35.8 % LAV(MOD-bp): 48.3 ml LVAd ap4: 40.7 cm2 SV(MOD-sp4): 99.0 ml LAV(MOD-bp) Indexed: 19.8 ml/m2 LVLd ap4: 9.1 cm SI(MOD-sp4): 40.6 ml/m2 LAV(MOD-sp2): 32.8 ml EDV(MOD-sp4): 146.7 ml LAV(MOD-sp4): 68.2 ml EDV(sp4-el): 153.7 ml LVAs ap4: 21.3 cm2 LVLs ap4: 7.9 cm ESV(MOD-sp4): 47.7 ml ESV(sp4-el): 48.9 ml EF(MOD-sp4): 67.5 % EF(sp4-el): 68.2 % SV(sp4-el): 104.9 ml LA A4 area: 22.8 cm2 LA dimension(2D): 4.6 cm RA A4 area: 16.7 cm2 TAPSE: 2.6 cm Time Measurements MV dec time: 0.22 sec Doppler Measurements & Calculations MV E max hardik: 99.8 cm/sec Lat Peak E' Hardik: 9.4 cm/sec Med Peak E' Hardik: 5.5 cm/sec MV A max hardik: 55.8 cm/sec E/E' lat: 10.6 E/E' med: 18.0 MV E/A: 1.8 MV dec slope: 445.7 cm/sec2 Ao V2 max: 157.3 cm/sec LV V1 max: 135.2 cm/sec Ao max P.9 mmHg LV V1 max P.3 mmHg Ao V2 mean: 128.9 cm/sec Ao mean P.9 mmHg Ao V2 VTI: 32.9 cm PA V2 max: 138.6 cm/sec TR max hardik: 254.4 cm/sec PA V2 mean: 96.8 cm/sec TR max P.9 mmHg ECHO/Echo Complete W/ Contrast Interpretation Summary The left ventricular ejection fraction is 60 %. Stage 1 diastolic dysfunction. There are regional wall motion abnormalities as specified. The left atrium is mildly enlarged. Mild (1+) tricuspid valve insufficiency. Normal LV size. Pulmonary artery systolic pressure is 34 mmHg. Contrast injection was performed. Ordering Physician: Cesar Tate Referring Physician: Mary Velarde Performed By: Elyssa Tate, ELENITA, RVT
[2025-05-12 10:02] LABS: Hematocrit 41.6 % (40-54); Hemoglobin 13.4 g/dL (13.0-16.5); Immature Granulocytes Count 0.110 X10^3/uL (0.0-0.0); Mean Corp Hgb Conc 32.2 g/dL (32-36); Mean Corpuscular Volume 92.9 fL (80-94); Mean Platelet Vol. 8.9 fl (6.2-12.0); NRBC Flagged by Analyzer 0 % (0-5); Platelet Count 226 K/mm3 (150-450); RBC Distribution Width CV 14.6 % (11.6-14.6); RBC Distribution Width SD 50.1 fl (35.1-43.9); Red Blood Count 4.48 M/mm3 (4.6-6.2); White Blood Count 7.5 K/mm3 (4.4-11.0)
[2025-05-12 10:22] LABS: Pro- Brain NATRIURETIC PEPTIDE 192 pg/mL (<=900)
[2025-05-12 10:28] LABS: Anion Gap 10 (7-18); BUN 23 mg/dL (4-19); BUN/Creat Ratio 15.9 RATIO (10-20); Calcium,Total 9.3 mg/dL (7.6-11.0); Carbon Dioxide 26.7 mmol/L (20.0-29.0); Chloride 102 mmol/L (96-106); Glucose 129 mg/dL (70-99); Potassium 4.9 mmol/L (3.5-5.1)
== END | disposition home or self-care (01) ==
PROVIDERS: PCP Student in an Organized Health Care Education/Training Program; Referring Provider Nurse Practitioner Family; Visit Provider Nurse Practitioner Family
DX: R06.09 Other forms of dyspnea (principal); I48.0 Paroxysmal atrial fibrillation; I71.40 Abdominal aortic aneurysm, without rupture, unspecified; E78.5 Hyperlipidemia, unspecified; I10 Essential (primary) hypertension
CPT/HCPCS: 93306; 36415; 80048; 83880; 85025; Q9957; A4216; C8929